=== PATIENT | male | born 1940 | race Caucasian/White ===

== ENCOUNTER 2019-10-10 19:01 | Inpatient (IN) ==
--- NOTE | 2019-10-10 19:46 | XRay Report ---
XR chest 1V portable CLINICAL HISTORY: weakness COMPARISON STUDY: Chest radiograph August 02, 2008. Chest radiograph August 04, 2008. FINDINGS: Lung volumes are normal. Lungs are clear. There is no pneumothorax or pleural effusion. Car diac size is normal. Mediastinal contours are normal. There is no evidence for pulmonary edema. Mild elevation of the right hemidiaphragm is noted. IMPRESSION: No acute cardiopulmonary findings. ACT 112: Negative or not required by law. Electronically signed by: Alexander Hunter M.D. 10/10/2019 7:45 PM
[2019-10-10 19:58] LABS: Basophils # (auto) 0.03 K/uL (0-0.2); Basophils % (auto) 0.4 %; Eosinophils # (auto) 0.12 K/uL (0-0.5); Eosinophils % (auto) 1.7 %; Hematocrit (blood only) 41.5 % (42-52); Hemoglobin 14.2 g/dL (14.0-18.0); Immature Granulocytes # (auto) 0.02 K/uL (0.00-0.02); Immature Granulocytes % (auto) 0.3 %; Lymphocytes # (auto) 0.78 K/uL (1.2-3.4); Mean Corpuscular Hemoglobin 31.2 pg (25-34); Mean Corpuscular Hgb Conc 34.2 g/dL (32-36); Mean Corpuscular Volume 91.2 fL (80-100); Mean Platelet Volume 9.3 fL (7.4-10.4); Monocytes # (auto) 0.49 K/uL (0.11-0.59); Monocytes % (auto) 6.9 %; Neutrophils # (auto) 5.63 K/uL (1.4-6.5); Neutrophils % (auto) 79.7 %; Platelet Count 189 K/uL (130-400); RDW Coefficient of Variation 14.3 % (11.5-14.5); RDW Standard Deviation 47.7 fL (36.4-46.3); Red Blood Count 4.55 M/uL (4.7-6.1); White Blood Count 7.07 K/uL (4.8-10.8)
[2019-10-10 20:17] LABS: Alanine Aminotransferase 16 U/L (12-78); Albumin Level 3.3 gm/dl (3.4-5.0); Aspartate Aminotransferase 13 U/L (15-37); BUN Creatinine Ratio 17.2 (10-20); Blood Urea Nitrogen 21 mg/dl (7-18); Calcium 8.9 mg/dl (8.5-10.1); Carbon Dioxide 29 mmol/L (21-32); Chloride 105 mmol/L (98-107); Creatinine Clr Calc Pharmacy 53.2 ml/min; Est GFR (African American) 64.7; Est GFR (Non-African American) 55.8; Glucose 186 mg/dl (70-99); Sodium 139 mmol/L (136-145)
[2019-10-10 20:27] LABS: Albumin Globulin Ratio 0.9 (0.9-2); Alkaline Phosphatase 96 U/L (45-117); Bilirubin,Total 0.5 mg/dl (0.2-1); Globulin 3.6 gm/dl (2.5-4.0); Total Protein 6.9 gm/dl (6.4-8.2); Troponin I < 0.015 ng/ml (0-0.045)
--- NOTE | 2019-10-10 20:29 | CT Scan Report ---
CT OF THE HEAD WITHOUT CONTRAST CLINICAL HISTORY: ?TIA, h/o CVA w/ R sided hemiparesis COMPARISON STUDY: Head CT July 29, 2008. MRI of the brain July 30, 2008. CT DOSE: 537.48 mGy.cm TECHNIQUE: Helical axial images of the head were obtained without IV contrast. Automated exposure con trol was utilized for the study. A dose lowering technique was utilized adhering to the principles o f ALARA. FINDINGS: No acute intracranial hemorrhage, midline shift or mass effect is present. The ventricular system is unremarkable. The basilar cisterns are patent. No extra-axial collections are present. Ther e are no findings to suggest acute dural sinus thrombosis or acute territorial infarct. No significan t calvarial abnormalities are present. Visualized portions of the sinuses and mastoid air cells are c lear. White matter hypodensity suggests small vessel disease. IMPRESSION: No acute intracranial findings. ACT 112: Negative or not required by law. Electronically signed by: Alexander Hunter M.D. 10/10/2019 8:27 PM
[2019-10-10] MEDS ORDERED: ASPIRIN CHEW 324 MG PO STA (21:09)
[2019-10-10 23:17] LABS: Appearance Urine Clear (Clear); Bilirubin Urine Negative (Negative); Blood Urine Negative (Negative); Color Urine Yellow; Glucose Urine UA Trace (Negative); Ketones Urine Negative (Negative); Leukocyte Esterase Urine Negative (Negative); Nitrite Urine Negative (Negative); Protein Urine Negative (Negative); Specific Gravity Urine 1.022 (1.000-1.030); Urobilinogen Urine Negative (Negative); pH Urine 5.5 (4.5-7.5)
--- NOTE | 2019-10-10 23:31 | Emergency Department Note ---
Entered by Paola Carlson acting as a scribe for Binh Chowdhury MD History of Present Illness General Chief complaint: Illness Stated complaint: ILLNESS, Time Seen by Provider: 10/10/19 19:05 Source: patient and family Limitations: no limitations History of Present Illness Provider complaint: Illness Onset (ago): hour(s) 1 Location: head, eyes and mouth Pain Consistency: + other (episode ) Quality: + constant Associated symptoms: + other (Positive: LOC, dizziness, rolled back eyes, drooling, shaking, unable to answer questions or speak. Negative: leg swelling); no chest pain, no headaches and no shortness of breath The patient is an 79 year old White male w/ PMHx of TIA who presents to the ED w/ CC of an episode of illness beginning an hour ago. The patient reports he just finished eating and felt a little stuffed, however, his family members insisted on bringing him to the ED. He notes he does not have history of seizure, however, he has history of stroke that left his whole right side weak. The patient states he had a blood clot in his legs and had an IVC filter placed. He denies chest pain, shortness of breath, headache, or leg swelling. The patients daughter report the patient told her he felt a little dizzy after eating dinner. She notes his eyes were then rolled back and the patient was drooling and shaking. The daughter states the patient was unable to speak or answer any questions She reports this episode lasted for 5 minutes then started becoming responsive. The daughter additionally states the patient kept lowering his right arm during the raise arm test performed by EMS. Home Medications Home Medications Medication Instructions Recorded Confirmed Type amlodipine 5 mg PO DAILY 10/10/19 10/10/19 History aspirin [Aspirin Low Dose] 81 mg PO DAILY 10/10/19 10/10/19 History lisinopril 20 mg PO DAILY 10/10/19 10/10/19 History simvastatin 20 mg PO HS 10/10/19 10/10/19 History Allergies Allergy/AdvReac Type Severity Reaction Status Date / Time No Known Allergies Allergy Unknown Verified 07/29/08 22:11 Past Med/Surg History Medical History (Updated 10/10/19 @ 22:06 by Paola Carlson) TIA (transient ischemic attack) (Acute) Family History (Updated 10/10/19 @ 20:00 by Paola Carlson) Other Family history non-contributory Social History Preferred Language: Armenian Feels Safe at Home: Yes Smoking Status: Former smoker Review of Systems See HPI for pertinent positives & negatives. and A total of 10 systems reviewed and were otherwise negative Physical Exam Vital Signs Vital Signs - 24 hr 10/10/19 19:00 10/10/19 19:41 10/10/19 20:20 Temperature 36.6 C Temperature Source Oral Pulse Rate 67 Pulse Rate [Bilateral] 67 Pulse Rhythm Regular Pulse Rhythm [Bilateral] Regular Pulse Strength Normal Pulse Strength [Bilateral] Normal Respiratory Rate 18 17 Respiratory Effort / Characteristics Non-Labored Spontaneous Non-Labored Spontaneous Respiratory Depth Normal Normal Respiratory Pattern Regular Regular Blood Pressure 163/82 H Blood Pressure [Left Arm] 168/84 H Blood Pressure Mean 109 Blood Pressure Mean [Left Arm] 112 Blood Pressure Position Lying Blood Pressure Position [Left Arm] Lying Pulse Oximetry 97 99 96 Oxygen Delivery Method Room Air Room Air Room Air Sepsis Recent Fever Within 48 Hours No Sepsis New/Unexplained Change in Mental Status No Sepsis Action Taken by Nursing No Action Required 10/10/19 21:00 10/10/19 23:01 Temperature Temperature Source Pulse Rate Pulse Rate [Bilateral] 85 70 Pulse Rhythm Pulse Rhythm [Bilateral] Regular Regular Pulse Strength Pulse Strength [Bilateral] Normal Normal Respiratory Rate 18 20 Respiratory Effort / Characteristics Non-Labored Spontaneous Non-Labored Spontaneous Respiratory Depth Normal Normal Respiratory Pattern Regular Blood Pressure Blood Pressure [Left Arm] 154/86 H 138/70 Blood Pressure Mean Blood Pressure Mean [Left Arm] 108 92 Blood Pressure Position Blood Pressure Position [Left Arm] Sitting Lying Pulse Oximetry 97 96 Oxygen Delivery Method Room Air Room Air Sepsis Recent Fever Within 48 Hours Sepsis New/Unexplained Change in Mental Status Sepsis Action Taken by Nursing GENERAL: Well appearing, well nourished, NAD, non-toxic. EYE EXAM: Normal conjunctiva. PERRL, no anisocoria and EOM's grossly intact w/o pain. OROPHARYNX: Moist mucous membranes. Grossly normal dentition. NECK: Supple, no nuchal rigidity, no adenopathy, non-tender. No signs of meningismus. LUNGS: Clear to auscultation. Normal chest wall mechanics. HEART: NSR, no MRG. ABDOMEN: Abdomen soft, non-tender, normo-active bowel sounds, no masses, no rebound or guarding. BACK: No CVA TTP. SKIN: No rashes and no bruising. UPPER EXTREMITIES: Upper extremities are grossly normal. LOWER EXTREMITIES: No pitting edema. No calf pain. NEURO EXAM: A&O x3, cranial nerves II-XII grossly intact, normal speech, 5/5 strength throughout, no sensory deficits, good finger to nose, no pronator drift, moves all 4 extremities on command w/o issue. Course Course 1912: The patient was evaluated in room B4B. A complete history and physical exam was performed. The patient was placed on a color television console monitor. 2109: Upon reevaluation, the patient is resting comfortably. I discussed laboratory and radiographic results with him. The patient verbalized agreement of the treatment plan. The patient will be evaluated for further management and care. 2145: I discussed the patient's case with [facility] The patient will be evaluated for further management. Administered Medications Discontinued Medications Aspirin (Aspirin) 324 mg PO NOW STA Stop: 10/10/19 21:10 Last Admin: 10/10/19 21:26 Dose: 324 mg Documented by: [id number] Medical Decision Making Differential Diagnosis Differential diagnosis: Etiologies such as infection, hypoglycemia, electrolyte abnormalities, cardiac sources, intracerebral event, trauma, toxicologic, neurologic, as well as others were entertained. Medical Records Attestation: I reviewed the patient's medical records. Home Medications Current Medication List: was personally reviewed by me Laboratory Data Attestation: I reviewed the patient's lab results. Result diagrams: 10/10/19 19:44 10/10/19 19:44 Lab Results 10/10/19 10/10/19 10/10/19 Range/Units 19:44 19:44 19:49 WBC 7.07 (4.8-10.8) K/uL RBC 4.55 L (4.7-6.1) M/uL Hgb 14.2 (14.0-18.0) g/dL Hct 41.5 L (42-52) % MCV 91.2 (80-100) fL MCH 31.2 (25-34) pg MCHC 34.2 (32-36) g/dL RDW Std Deviation 47.7 H (36.4-46.3) fL RDW Coeff of Renan 14.3 (11.5-14.5) % Plt Count 189 (130-400) K/uL MPV 9.3 (7.4-10.4) fL Immature Gran % (Auto) 0.3 % Neut % (Auto) 79.7 % Lymph % (Auto) 11.0 % Crook % (Auto) 6.9 % Eos % (Auto) 1.7 % Baso % (Auto) 0.4 % Immature Gran # (Auto) 0.02 (0.00-0.02) K/uL Neut # (Auto) 5.63 (1.4-6.5) K/uL Lymph # (Auto) 0.78 L (1.2-3.4) K/uL Crook # (Auto) 0.49 (0.11-0.59) K/uL Eos # (Auto) 0.12 (0-0.5) K/uL Baso # (Auto) 0.03 (0-0.2) K/uL Sodium 139 (136-145) mmol/L Potassium 4.0 (3.5-5.1) mmol/L Chloride 105 (98-107) mmol/L Carbon Dioxide 29 (21-32) mmol/L Anion Gap 5.0 (3-11) BUN 21 H (7-18) mg/dl Creatinine 1.21 (0.6-1.4) mg/dl Est Cr Clr Drug Dosing 53.2 ml/min Est GFR ( Amer) 64.7 Est GFR (Non-Af Amer) 55.8 BUN/Creatinine Ratio 17.2 (10-20) Glucose 186 H (70-99) mg/dl POC Glucose 179 H (70-99) Calcium 8.9 (8.5-10.1) mg/dl Total Bilirubin 0.5 (0.2-1) mg/dl AST 13 L (15-37) U/L ALT 16 (12-78) U/L Alkaline Phosphatase 96 (45-117) U/L Troponin I < 0.015 (0-0.045) ng/ml Total Protein 6.9 (6.4-8.2) gm/dl Albumin 3.3 L (3.4-5.0) gm/dl Globulin 3.6 (2.5-4.0) gm/dl Albumin/Globulin Ratio 0.9 (0.9-2) TSH 2.460 (0.300-4.500) uIu/ml Urine Color Urine Appearance (Clear) Urine pH (4.5-7.5) Ur Specific [place] (1.000-1.030) Urine Protein (Negative) Urine Glucose (UA) (Negative) Urine Ketones (Negative) Urine Blood (Negative) Urine Nitrite (Negative) Urine Bilirubin (Negative) Urine Urobilinogen (Negative) Ur Leukocyte Esterase (Negative) 10/10/19 Range/Units 23:00 WBC (4.8-10.8) K/uL RBC (4.7-6.1) M/uL Hgb (14.0-18.0) g/dL Hct (42-52) % MCV (80-100) fL MCH (25-34) pg MCHC (32-36) g/dL RDW Std Deviation (36.4-46.3) fL RDW Coeff of Renan (11.5-14.5) % Plt Count (130-400) K/uL MPV (7.4-10.4) fL Immature Gran % (Auto) % Neut % (Auto) % Lymph % (Auto) % Crook % (Auto) % Eos % (Auto) % Baso % (Auto) % Immature Gran # (Auto) (0.00-0.02) K/uL Neut # (Auto) (1.4-6.5) K/uL Lymph # (Auto) (1.2-3.4) K/uL Crook # (Auto) (0.11-0.59) K/uL Eos # (Auto) (0-0.5) K/uL Baso # (Auto) (0-0.2) K/uL Sodium (136-145) mmol/L Potassium (3.5-5.1) mmol/L Chloride (98-107) mmol/L Carbon Dioxide (21-32) mmol/L Anion Gap (3-11) BUN (7-18) mg/dl Creatinine (0.6-1.4) mg/dl Est Cr Clr Drug Dosing ml/min Est GFR ( Amer) Est GFR (Non-Af Amer) BUN/Creatinine Ratio (10-20) Glucose (70-99) mg/dl POC Glucose (70-99) Calcium (8.5-10.1) mg/dl Total Bilirubin (0.2-1) mg/dl AST (15-37) U/L ALT (12-78) U/L Alkaline Phosphatase (45-117) U/L Troponin I (0-0.045) ng/ml Total Protein (6.4-8.2) gm/dl Albumin (3.4-5.0) gm/dl Globulin (2.5-4.0) gm/dl Albumin/Globulin Ratio (0.9-2) TSH (0.300-4.500) uIu/ml Urine Color Yellow Urine Appearance Clear (Clear) Urine pH 5.5 (4.5-7.5) Ur Specific [place] 1.022 (1.000-1.030) Urine Protein Negative (Negative) Urine Glucose (UA) Trace H (Negative) Urine Ketones Negative (Negative) Urine Blood Negative (Negative) Urine Nitrite Negative (Negative) Urine Bilirubin Negative (Negative) Urine Urobilinogen Negative (Negative) Ur Leukocyte Esterase Negative (Negative) Imaging Data Radiologist's Impression: Radiology results as stated below per my review and the radiologist's interpretation: CT OF THE HEAD WITHOUT CONTRAST CLINICAL HISTORY: ?TIA, h/o CVA w/ R sided hemiparesis COMPARISON STUDY: Head CT July 29, 2008. MRI of the brain July 30, 2008. CT DOSE: 537.48 mGy.cm TECHNIQUE: Helical axial images of the head were obtained without IV contrast. Automated exposure control was utilized for the study. A dose lowering technique was utilized adhering to the principles of ALARA. FINDINGS: No acute intracranial hemorrhage, midline shift or mass effect is present. The ventricular system is unremarkable. The basilar cisterns are patent. No extra-axial collections are present. There are no findings to suggest acute dural sinus thrombosis or acute territorial infarct. No significant calvarial abnormalities are present. Visualized portions of the sinuses and mastoid air cells are clear. White matter hypodensity suggests small vessel disease. IMPRESSION: No acute intracranial findings. ACT 112: Negative or not required by law. Electronically signed by: Alexander Hunter M.D. 10/10/2019 8:27 PM XR chest 1V portable CLINICAL HISTORY: weakness COMPARISON STUDY: Chest radiograph August 02, 2008. Chest radiograph August 04, 2008. FINDINGS: Lung volumes are normal. Lungs are clear. There is no pneumothorax or pleural effusion. Cardiac size is normal. Mediastinal contours are normal. There is no evidence for pulmonary edema. Mild elevation of the right hemidiaphragm is noted. IMPRESSION: No acute cardiopulmonary findings. ACT 112: Negative or not required by law. Electronically signed by: Alexander Hunter M.D. 10/10/2019 7:45 PM ECG Data Attestation: I personally reviewed and interpreted this ECG as follows: Indication: + altered mental status Rate (beats per minute): 64 Rhythm: + normal sinus ECG Intervals/blocks: + Normal QRS, + Normal QT, + Normal UT and + Normal QT-c ECG Pep: + Left axis deviation ECG ST segments: no ST depression, no ST elevation and no T-wave inversions Blood Pressure Blood Pressure Findings: Elevated blood pressure Blood Pressure Disposition: further management by hospitalist MDM Narrative The patient is an 79 year old White male w/ PMHx of TIA who presents to the ED w/ CC of an episode of illness beginning an hour ago. Patient was seen and evaluated the bedside. The patient did present with conc [place] for some sort of change in mental status. The patient initially did present by himself and states that he feels well. Patient's family did arrive the did relate the patient did have a brief episode of alteration in consciousness but the patient was not as alert, his eyes rolled back, and he was drooling and unresponsive for 5 minutes at a time. There was concern for maybe some right- sided weakness. Patient is a prior history of CVA with right-sided weakness but if present is not very obvious on exam as the patient does have good strength in both his upper and lower extremities. Speech is thought to be normal by the family at bedside. Unsure whether not this is TIA versus seizure. Patient has no prior history of seizure no tongue biting and no incontinence. Patient did a bladder completed. Patient has a normal white count and hemoglobin. The patient's kidney function is unremarkable. Glucose is somewhat elevated but the patient had just eaten. Troponin is not testable. Urinalysis is negative. CT of the head is also negative along with a chest x-ray. Patient does have a slightly elevated ABCD 2 score places the patient at moderate risk. I did speak the on-call hospitalist who agreed to further evaluate treat the patient. Patient was admitted to the medicine service. Impression & Plan TIA (transient ischemic attack), Alteration consciousness, History of CVA (cerebrovascular accident) Discharge Plan Visit Data Chief Complaint: Illness Stated Complaint: ILLNESS, ED Provider: Binh Chowdhury Discharge Problem: TIA (transient ischemic attack), Alteration consciousness, History of CVA (cerebrovascular accident) Patient Disposition: Being Evaluated by Hospitalist Discharge Instructions Interventions: ED Discharge Assessment Last Done: 10/10/19 23:18 Forms Stand Alone Forms: My [facility] Prescriptions Prescriptions: No Action lisinopril 20 mg tablet 20 mg PO DAILY RF: 0 amlodipine 5 mg tablet 5 mg PO DAILY RF: 0 aspirin [Aspirin Low Dose] 81 mg Tablet,Delayed Release (Dr/Ec) 81 mg PO DAILY RF: 0 simvastatin 20 mg tablet 20 mg PO HS RF: 0 Referrals Referrals: PCP,NO [Primary Care Provider] - The scribe's documentation has been prepared under my direction and personally reviewed by me in its entirety. I confirm that the note above accurately reflects all work, treatment, procedures, and medical decision making performed by me.
[2019-10-10] MEDS ORDERED: ONDANSETRON INJ 2 MG/ML 2 ML VIAL IV PRN (23:56)
[2019-10-10] MEDS ORDERED: PHARMACIST DISCHARGE MED REC CONSULT PRN (23:56)
[2019-10-10] MEDS ORDERED: CLOPIDOGREL BISULFATE 75 MG TAB PO ONE (23:56)
[2019-10-10] MEDS ORDERED: NITROGLYCERIN SL 0.4 MG/TAB TAB SL PRN (23:56)
[2019-10-10] MEDS ORDERED: ACETAMINOPHEN 325 MG TAB PO PRN (23:56)
[2019-10-10] MEDS ORDERED: POLYETHYLENE (MIRALAX) 17 GM PACK PO PRN (23:56)
[2019-10-11] MEDS: SODIUM CHLORIDE 0.9% 1000ML 1,000 ML IV SCH ×2 (00:16→15:37)
--- NOTE | 2019-10-11 02:38 | History and Physical Report ---
DATE OF ADMISSION: 10/10/2019 CHIEF COMPLAINT: Stroke-like symptoms. 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 The patient's daughter visiting him for [place], he was sitting in the chair and suddenly he seemed to be leaning to one side, daughter went and checked him and he was feeling somewhat lightheaded. He could see, but he could not speak and his eyes started rolling up, it lasted about 10-15 minutes and the EMS was called. He was drooling during that time. When EMS came at that time he started to come around and he was able to have difficulty to tell his name, then gradually came back to his usual self. Currently at his baseline. Speech is normal. Alert and oriented. Could tell all his history, said he could see everything, but he could not speak at that time. Currently resting comfortably and hemodynamically stable. He has some mild headache, no blurred vision, no earache, currently no runny nose, no sore throat, no cough, no chest pain, no fever or chills. Appetite is okay. Swallows okay. No significant recent weight gain or weight loss. Sleeps okay. Ambulates okay. He says on couple of hours ambulating sometimes his right foot drops, so he is on brace for that. No chest pain, no shortness of breath, no nausea, no vomiting, no abdominal pain. Normal bowel and bladder movements. No hematuria or burning micturition, no black stools or bloody stools. No swelling in the legs, no rash. ALLERGIES: No known drug allergies. PAST MEDICAL HISTORY: As mentioned above. PAST SURGICAL HISTORY: Status post IVC filter. MEDICATIONS: The patient is on aspirin 81 mg p.o. daily, lisinopril 20 mg p.o. daily, simvastatin 20 mg p.o. at bedtime, amlodipine 5 mg p.o. daily. FAMILY HISTORY: No family history on file. SOCIAL HISTORY: , lives alone. No smoking, no alcohol, no drug use. REVIEW OF SYMPTOMS: As per HPI. Rest of review of symptoms negative. PHYSICAL EXAMINATION: GENERAL: The patient alert and oriented, not in acute distress. VITAL SIGNS: Temperature 36.6, pulse 85, respiratory rate 18, blood pressure 154/86, oxygen 97% room air. HEENT: No pallor, no icterus. Pupils equal, round, reactive to light. NECK: No JVD, no neck masses, no carotid bruits. CARDIOVASCULAR: S1, S2 heard, regular rate and rhythm, no murmur, no gallop. RESPIRATORY SYSTEM: Normal AP diameter. No accessory muscle use. No wheezing, no crackles. ABDOMEN: Soft, bowel sounds present, nontender. No distention. CENTRAL NERVOUS SYSTEM: Alert and oriented. Cranial nerves II-XII grossly intact. Power 5/5 in all extremities. Sensation is intact, position sense intact. Coordination movements normal. No pronator drift. [id number] test normal. EXTREMITIES: No edema, no erythema. LABORATORY DATA: WBC 7, hemoglobin 14.2, hematocrit 41.5, platelets 189. Sodium 139, potassium 4, chloride 105, bicarbonate 29, BUN 21, creatinine 1.2, serum glucose 186, calcium 8.9, total bilirubin 0.5, AST 13, ALT 16, alkaline phosphatase 96, troponin I less than 0.015. TSH 2.4. CT of the head, no acute intracranial findings. Chest x-ray, no acute cardiopulmonary findings. EKG: Normal sinus rhythm at a rate of 64. Nonspecific ST changes. ASSESSMENT AND PLAN: This is an 79-year-old male who presents with stroke-like symptoms. 1. Stroke like symptoms: The patient felt dizzy and leaned to one side and could not speak for about 10-15 minutes, then came back to usual self. History of cerebrovascular accident in the past in 2007. At that time, he had a right-sided weakness which improved. Currently possible transient ischemic attack, will do stroke workup with MRI scan, echocardiogram and carotid Doppler, speech evaluation. Follow his lipid profile and HbA1c levels. PT and OT. Neurology consult in a.m. Monitor in tele floor. 2. Questionable seizures: Will do EEG. Continue his home aspirin. We will also add Plavix and await neuro input. 3. Hyperlipidemia: Continue statin. Follow up fasting lipid profile. 4. Hypertension: On amlodipine and lisinopril.We will hold his amlodipine to allow permissive hypertension, if MRI shows cva. 5. History of pulmonary embolism and deep venous thrombosis: Status post IVC filter, not on anticoagulation. 6. Deep venous thrombosis prophylaxis: Sequential compression devices for now. 7. Disposition: Admit to tele floor. Expect to discharge home and follow with family doctor. Level 1 full code. PT and OT prior to discharge. Social Service to help with discharge planning. DONOVAN
[2019-10-11] MEDS ORDERED: GADOBUTROL 65ML VIAL IV PRN (03:14)
--- NOTE | 2019-10-11 06:43 | Magnetic Resonance Report ---
MRI OF THE BRAIN WITHOUT AND WITH IV CONTRAST CLINICAL HISTORY: stroke like symptoms COMPARISON STUDY: Noncontrast head CT dated 10/10/2019, MRI the brain dated 07/30/2008 TECHNIQUE: MRI of the brain was performed from the vertex to the skull base utilizing various T1 and T2 weighted sequences. Following the IV administration of 7.7 mL of Gadavist contrast, additional enh anced images were obtained. FINDINGS: Sagittal T1, axial diffusion, proton density and T2 weighted axial, coronal FLAIR, and pre and post a xial T1-weighted images were acquired. These were supplemented with post gadolinium coronal T1 weight ed images. No intra or extra-axial mass lesions are visualized. Axial diffusion-weighted images reveal no evidence of acute or subacute infarction. There is no evidence of ventricular dilatation. Proton density T2-weighted and FLAIR images reveal moderate scattered foci of increased T2 signal wit hin the white matter, likely on a small vessel basis. There is an old infarct at the level of the ronal tomedullary junction. There are no abnormal flow voids. There is no evidence of pathologic enhancement. IMPRESSION: Old post ischemic changes. No acute findings. No evidence of intracranial mass. No evide nce of acute or subacute infarction. ACT 112: Negative or not required by law. Electronically signed by: Caleb Maria M.D. 10/11/2019 6:41 AM
[2019-10-11 06:50] LABS: Basophils # (auto) 0.03 K/uL (0-0.2); Basophils % (auto) 0.5 %; Eosinophils # (auto) 0.13 K/uL (0-0.5); Eosinophils % (auto) 2.1 %; Hematocrit (blood only) 38.3 % (42-52); Hemoglobin 13.1 g/dL (14.0-18.0); Immature Granulocytes # (auto) 0.01 K/uL (0.00-0.02); Immature Granulocytes % (auto) 0.2 %; Lymphocytes # (auto) 1.12 K/uL (1.2-3.4); Lymphocytes % (auto) 17.7 %; Mean Corpuscular Hgb Conc 34.2 g/dL (32-36); Mean Corpuscular Volume 90.8 fL (80-100); Mean Platelet Volume 9.6 fL (7.4-10.4); Monocytes # (auto) 0.58 K/uL (0.11-0.59); Monocytes % (auto) 9.1 %; Neutrophils # (auto) 4.47 K/uL (1.4-6.5); Neutrophils % (auto) 70.4 %; Platelet Count 201 K/uL (130-400); RDW Coefficient of Variation 14.2 % (11.5-14.5); RDW Standard Deviation 46.6 fL (36.4-46.3); Red Blood Count 4.22 M/uL (4.7-6.1); White Blood Count 6.34 K/uL (4.8-10.8)
[2019-10-11 07:11] LABS: Calcium 8.9 mg/dl (8.5-10.1); Creatinine Clr Calc Pharmacy 58.9 ml/min; Est GFR (African American) 74.2; Magnesium 2.1 mg/dl (1.8-2.4); Potassium 3.9 mmol/L (3.5-5.1)
[2019-10-11 07:17] LABS: Estimated Average Glucose 108 mg/dl; Hemoglobin A1C 5.4 % (4.5-5.6)
--- NOTE | 2019-10-11 07:22 | Ultrasound Report ---
US carotid doppler BI CLINICAL HISTORY: 79 years-old Male presenting with tia/cva. TECHNIQUE: Real-time grayscale and color and spectral Doppler ultrasound imaging of the bilateral car otid arteries was performed. Stenosis measurements were based on NASCET-like criteria (distal lumen d iameter as the denominator for stenosis measurement). COMPARISON: 07/30/2008. FINDINGS: RIGHT: Common carotid artery (CCA): Atherosclerosis at the carotid bulb. Peak systolic velocity (PSV) 91 cm/ s. Internal carotid artery (ICA): Atherosclerosis of the proximal ICA. PSV 71 cm/s. End diastolic veloci ty (EDV) 14 cm/s. ICA/CCA (systolic) ratio: 0.7. External carotid artery (ECA): Patent. PSV 102 cm/s. LEFT: CCA: Atherosclerosis at the carotid bulb. PSV 131 cm/s. ICA: Atherosclerosis of the proximal ICA. PSV 84 cm/s. EDV 16 cm/s. ICA/CCA (systolic) ratio: 0.6. ECA: Patent. PSV 87 cm/s. Bilateral antegrade flow within the vertebral arteries. Other: Incidental note made of a right thyroid lobe nodule measuring 2.0 x 1.3 x 1.3 cm, previously 2 .2 cm in 2007. There is also a prominent lymph node in the right cervical region measuring 1.1 x 0.3 x 0.5 cm. This has a benign morphology. Blood pressure: Brachial: Right: 145/79 mmHg, Left: 160/86 mmHg. Reference ranges: Stenosis measurements are compared to reference velocity parameters by the Society of Radiologists in Ultrasound (SRU) consensus and Sonographic NASCET index (S-NASCET). * SRU Primary parameters: ICA PSV <125 cm/s = normal or less than 50% stenosis; ICA PSV 125-230 cm/s = 50-69% stenosis; ICA PSV >230 cm/s = greater than or equal to 70% stenosis. * SRU Additional parameters: ICA/CCA PSV ratio <2 = normal or less than 50% stenosis; ratio 2-4 = 5 0-69% stenosis; ratio >4 = greater than or equal to 70% stenosis. ICA EDV <40 cm/s = normal or less t booker 50% stenosis; ICA EDV 40-100 cm/s = 50-69% stenosis; ICA EDV >100 cm/s = greater than or equal to 70% stenosis. * S-NASCET parameters: Deceleration spectral broadening + PSV <125 cm/s = less than 50% stenosis; pa nsystolic spectral broadening + PSV <125 cm/s = 16-49% stenosis; pansystolic spectral broadening + PS V >125 cm/s + EDV <110 cm/s or ICA/CCA PSV ratio 2-4 = 50-69% stenosis; pansystolic spectral broadeni ng + PSV >270 cm/s OR EDV >110 cm/s OR ICA/CCA PSV ratio >4 = 70-79% stenosis; EDV >140 cm/s = 80-99% stenosis. IMPRESSION: 1. Atherosclerosis without hemodynamically significant stenosis in the carotid arteries. 2. Essentially stable right thyroid lobe nodule. 3. Benign right cervical lymph node. ACT 112: Negative or not required by law. Electronically signed by: Kaleb Naqvi M.D. 10/11/2019 7:21 AM
--- NOTE | 2019-10-11 09:38 | Electroencephalogram ---
EEG Procedure Note Date of Service October 11, 2019 Start / End Times Start Time: 0839 End Time: [address] Figueredo History Confusional episode of uncertain cause question seizure Home Medication List Home Medications Medication Instructions Recorded Confirmed Type amlodipine 5 mg PO DAILY 10/10/19 10/10/19 History aspirin [Aspirin Low Dose] 81 mg PO DAILY 10/10/19 10/10/19 History lisinopril 20 mg PO DAILY 10/10/19 10/10/19 History simvastatin 20 mg PO HS 10/10/19 10/10/19 History Inpatient Medication List Gadobutrol (Gadavist 65ml) 7.7 ml IV ONCE PRN PRN Reason: Interaction Checking Stop: 10/15/19 03:13 Last Admin: 10/11/19 03:00 Dose: 7.7 ml Documented by: [id number] Sodium Chloride (Nss 1000ml) 1,000 mls @ 75 mls/hr IV .[id number] ELVIRA Stop: 10/11/19 16:00 Last Admin: 10/11/19 00:16 Dose: 75 mls/hr Documented by: [id number] Discontinued Medications Aspirin (Aspirin) 324 mg PO NOW STA Stop: 10/10/19 21:10 Last Admin: 10/10/19 21:26 Dose: 324 mg Documented by: [id number] Clopidogrel Bisulfate (Plavix) 75 mg PO NOW ONE Stop: 10/10/19 23:57 Last Admin: 10/11/19 00:43 Dose: 75 mg Documented by: [id number] Description This is a 21 electrode EEG with a single channel dedicated to limited EKG. The electrodes were placed in accordance with the International 10-20 system. This EEG was done as a bedside recording is of good technical quality with few muscle movement artifacts. Unfortunately the video portion recording was dysfunctional and correlation of the movement artifact with video documentation was not possible but overall the nature of the discharges was more reminiscent of muscle artifact than anything of cortical origin Under these conditions there is evidence for normal background rhythm in the alpha range of about 9 to 10 Hz and maximum frequency of up to 20 V maximum amplitude. This is maximum posterior head regions bilaterally symmetrical. Polymorphic relatively low voltage mid frequency theta activity is seen in a symmetrical fashion over the central regions. Beta activity seen bifrontally No time during the waking tracing is evidence for potentially epileptogenic activity in the form of polyspike or spike-wave burst, focal sharp waves and focal spikes Interpretation This is an essentially normal EEG during wakefulness without evidence for focal or generalized encephalopathy and without evidence for potentially epileptogenic activity Clinical Correlation Is a normal EEG without evidence for potentially epileptogenic activity or focal abnormalities but a normal study does not exclude a diagnosis of seizure disorder and clinical correlation is required Harjinder Rincon MD
[2019-10-11] MEDS: AMLODIPINE BESYLATE 5 MG TAB PO SCH (09:56)
[2019-10-11] MEDS: CLOPIDOGREL BISULFATE 75 MG TAB PO SCH (09:56)
[2019-10-11] MEDS: lisinopriL 20 MG TAB PO SCH (09:56)
[2019-10-11] MEDS: ASPIRIN 81 MG ECTAB PO SCH (09:56)
--- NOTE | 2019-10-11 12:29 | Hospitalist Progress Note ---
Date of Service October 11, 2019 Assessment & Plan (1) Alteration consciousness: Strokelike symptoms reported. CT head did not show any acute abnormality,MRI unremarkable for any acute findings [showed old postischemic changes], carotid duplex showed atherosclerosis without hemodynamically significant stenosis, EEG negative for any seizure activity. Has history of prior CVA, hypertension. Possibilities include TIA, neurocardiogenic presyncope Will await neurology evaluation Already evaluated by physical therapy and speech therapist without any abnormality Refer to H&P from this morning for further details and plan Subjective Patient seen and examined this morning. Reports that all symptoms reported and admission has completely resolved. Reported being fully aware during the episode. Denied any loss of consciousness. Did report sluggish speech, confusion at the time. Currently patient, he stated this was related to being too excited during julien and getting lightheaded. At the time of my evaluation, patient denied any focal weakness, difficulty swallowing, blurred vision, headache, sensory abnormalities. Review of Systems Review of Systems: All systems reviewed and unremarkable except for mentioned above. Physical Exam Physical Exam: General: Well nourished, well hydrated, no acute distress Eyes: PERRL, conjunctivae normal, not pale, anicteric sclerae, EOM intact bilaterally ENMT: External ear and nose normal, oropharynx normal Neck: Normal visual inspection, no tracheal deviation, no swelling noted Respiratory: Normal respiratory effort, no respiratory distress, lungs clear to auscultation, no crackles and no wheezes Cardiovascular: Pulse is RRR. S1 S2. No murmur Chest (Breasts): Chest: normal inspection of chest Gastrointestinal (Abdomen): Abdomen is not distended, soft, non-tender to palpation, no guarding, no palpable hepatosplenomegaly, normal bowel sounds Musculoskeletal: No cyanosis or clubbing, all extremities motor strength 5/5 Skin: No rash noted on gross inspection, No ulcers noted Neurologic: Alert and oriented x 3, No focal weakness, sensation grossly intact, CN II,III, IV, , V, VII, IX, X, XII grossly intact Psychiatric: Euthymic affect, no depressed affect Results & Data Vital Signs (Past 12 Hours) Vital Signs Temp Pulse Pulse Resp BP BP Pulse Ox 10/11/19 11:42 36.6 C 87 18 119/65 95 10/11/19 07:54 36.7 C 80 18 172/63 H 97 10/11/19 03:53 36.4 C L 64 18 144/83 H 98 Laboratory Results Laboratory Results - last 24 hr 10/10/19 10/10/19 10/10/19 19:44 19:44 19:49 WBC 7.07 RBC 4.55 L Hgb 14.2 Hct 41.5 L MCV 91.2 MCH 31.2 MCHC 34.2 RDW Std Deviation 47.7 H RDW Coeff of Renan 14.3 Plt Count 189 MPV 9.3 Immature Gran % (Auto) 0.3 Neut % (Auto) 79.7 Lymph % (Auto) 11.0 [place] % (Auto) 6.9 Eos % (Auto) 1.7 Baso % (Auto) 0.4 Immature Gran # (Auto) 0.02 Neut # (Auto) 5.63 Lymph # (Auto) 0.78 L [place] # (Auto) 0.49 Eos # (Auto) 0.12 Baso # (Auto) 0.03 Sodium 139 Potassium 4.0 Chloride 105 Carbon Dioxide 29 Anion Gap 5.0 BUN 21 H Creatinine 1.21 Est Cr Clr Drug Dosing 53.2 Est GFR ( Amer) 64.7 Est GFR (Non-Af Amer) 55.8 BUN/Creatinine Ratio 17.2 Glucose 186 H POC Glucose 179 H Estimat Average Glucose Hemoglobin A1c Calcium 8.9 Magnesium Total Bilirubin 0.5 AST 13 L ALT 16 Alkaline Phosphatase 96 Troponin I < 0.015 Total Protein 6.9 Albumin 3.3 L Globulin 3.6 Albumin/Globulin Ratio 0.9 Triglycerides Cholesterol LDL Cholesterol, Calc VLDL Cholesterol, Calc HDL Cholesterol Cholesterol/HDL Ratio TSH 2.460 Urine Color Urine Appearance Urine pH Ur Specific [place] Urine Protein Urine Glucose (UA) Urine Ketones Urine Blood Urine Nitrite Urine Bilirubin Urine Urobilinogen Ur Leukocyte Esterase 10/10/19 10/11/19 10/11/19 23:00 06:18 06:18 WBC 6.34 RBC 4.22 L Hgb 13.1 L Hct 38.3 L MCV 90.8 MCH 31.0 MCHC 34.2 RDW Std Deviation 46.6 H RDW Coeff of Renan 14.2 Plt Count 201 MPV 9.6 Immature Gran % (Auto) 0.2 Neut % (Auto) 70.4 Lymph % (Auto) 17.7 [place] % (Auto) 9.1 Eos % (Auto) 2.1 Baso % (Auto) 0.5 Immature Gran # (Auto) 0.01 Neut # (Auto) 4.47 Lymph # (Auto) 1.12 L [place] # (Auto) 0.58 Eos # (Auto) 0.13 Baso # (Auto) 0.03 Sodium 141 Potassium 3.9 Chloride 108 H Carbon Dioxide 28 Anion Gap 5.0 BUN 21 H Creatinine 1.08 Est Cr Clr Drug Dosing 58.9 Est GFR ( Amer) 74.2 Est GFR (Non-Af Amer) 64.0 BUN/Creatinine Ratio 19.0 Glucose 89 POC Glucose Estimat Average Glucose Hemoglobin A1c Calcium 8.9 Magnesium 2.1 Total Bilirubin AST ALT Alkaline Phosphatase Troponin I Total Protein Albumin Globulin Albumin/Globulin Ratio Triglycerides 69 Cholesterol 157 LDL Cholesterol, Calc 67 VLDL Cholesterol, Calc 14 HDL Cholesterol 76 Cholesterol/HDL Ratio 2 TSH Urine Color Yellow Urine Appearance Clear Urine pH 5.5 Ur Specific [place] 1.022 Urine Protein Negative Urine Glucose (UA) Trace H Urine Ketones Negative Urine Blood Negative Urine Nitrite Negative Urine Bilirubin Negative Urine Urobilinogen Negative Ur Leukocyte Esterase Negative 10/11/19 06:18 WBC RBC Hgb Hct MCV MCH MCHC RDW Std Deviation RDW Coeff of Renan Plt Count MPV Immature Gran % (Auto) Neut % (Auto) Lymph % (Auto) [place] % (Auto) Eos % (Auto) Baso % (Auto) Immature Gran # (Auto) Neut # (Auto) Lymph # (Auto) [place] # (Auto) Eos # (Auto) Baso # (Auto) Sodium Potassium Chloride Carbon Dioxide Anion Gap BUN Creatinine Est Cr Clr Drug Dosing Est GFR ( Amer) Est GFR (Non-Af Amer) BUN/Creatinine Ratio Glucose POC Glucose Estimat Average Glucose 108 Hemoglobin A1c 5.4 Calcium Magnesium Total Bilirubin AST ALT Alkaline Phosphatase Troponin I Total Protein Albumin Globulin Albumin/Globulin Ratio Triglycerides Cholesterol LDL Cholesterol, Calc VLDL Cholesterol, Calc HDL Cholesterol Cholesterol/HDL Ratio TSH Urine Color Urine Appearance Urine pH Ur Specific [place] Urine Protein Urine Glucose (UA) Urine Ketones Urine Blood Urine Nitrite Urine Bilirubin Urine Urobilinogen Ur Leukocyte Esterase
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
[2019-10-11] MEDS ORDERED: SIMVASTATIN 20 MG TAB PO SCH (21:00)
[2019-10-12 05:22] LABS: Basophils # (auto) 0.03 K/uL (0-0.2); Basophils % (auto) 0.5 %; Eosinophils # (auto) 0.21 K/uL (0-0.5); Eosinophils % (auto) 3.5 %; Hematocrit (blood only) 36.3 % (42-52); Hemoglobin 12.3 g/dL (14.0-18.0); Immature Granulocytes # (auto) 0.01 K/uL (0.00-0.02); Immature Granulocytes % (auto) 0.2 %; Lymphocytes # (auto) 1.42 K/uL (1.2-3.4); Lymphocytes % (auto) 23.9 %; Mean Corpuscular Hemoglobin 30.9 pg (25-34); Mean Corpuscular Hgb Conc 33.9 g/dL (32-36); Mean Corpuscular Volume 91.2 fL (80-100); Mean Platelet Volume 9.2 fL (7.4-10.4); Monocytes # (auto) 0.66 K/uL (0.11-0.59); Monocytes % (auto) 11.1 %; Neutrophils % (auto) 60.8 %; Platelet Count 186 K/uL (130-400); RDW Coefficient of Variation 14.3 % (11.5-14.5); Red Blood Count 3.98 M/uL (4.7-6.1); White Blood Count 5.93 K/uL (4.8-10.8)
[2019-10-12 05:58] LABS: BUN Creatinine Ratio 16.4 (10-20); Calcium 8.2 mg/dl (8.5-10.1); Creatinine Clr Calc Pharmacy 53.9 ml/min; Est GFR (African American) 66.7; Est GFR (Non-African American) 57.5; Potassium 4.2 mmol/L (3.5-5.1)
[2019-10-12] MEDS: AMLODIPINE BESYLATE 5 MG TAB PO SCH (07:52)
[2019-10-12] MEDS: ASPIRIN 81 MG ECTAB PO SCH (07:52)
[2019-10-12] MEDS: CLOPIDOGREL BISULFATE 75 MG TAB PO SCH (07:53)
[2019-10-12] MEDS: lisinopriL 20 MG TAB PO SCH (07:53)
[2019-10-12] MEDS ORDERED: STROKE PATIENT DISCHARGE STA (13:26)
--- NOTE | 2019-10-12 13:27 | Discharge Summary ---
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 The patient's daughter visiting him for Nursery, he was sitting in the chair and suddenly he seemed to be leaning to one side, daughter went and checked him and he was feeling somewhat lightheaded. He could see, but he could not speak and his eyes started rolling up, it lasted about 10-15 minutes and the EMS was called. He was drooling during that time. When EMS came at that time he started to come around and he was able to have difficulty to tell his name, then gradually came back to his usual self. Currently at his baseline. Speech is normal. Alert and oriented. Could tell all his history, said he could see everything, but he could not speak at that time. Currently resting comfortably and hemodynamically stable. He has some mild headache, no blurred vision, no earache, currently no runny nose, no sore throat, no cough, no chest pain, no fever or chills. Appetite is okay. Swallows okay. No significant recent weight gain or weight loss. Sleeps okay. Ambulates okay. He says on couple of hours ambulating sometimes his right foot drops, so he is on brace for that. No chest pain, no shortness of breath, no nausea, no vomiting, no abdominal pain. Normal bowel and bladder movements. No hematuria or burning micturition, no black stools or bloody stools. No swelling in the legs, no rash. Admission Exam Per Admitting Provider GENERAL: The patient alert and oriented, not in acute distress. VITAL SIGNS: Temperature 36.6, pulse 85, respiratory rate 18, blood pressure 154/86, oxygen 97% room air. HEENT: No pallor, no icterus. Pupils equal, round, reactive to light. NECK: No JVD, no neck masses, no carotid bruits. CARDIOVASCULAR: S1, S2 heard, regular rate and rhythm, no murmur, no gallop. RESPIRATORY SYSTEM: Normal AP diameter. No accessory muscle use. No wheezing, no crackles. ABDOMEN: Soft, bowel sounds present, nontender. No distention. CENTRAL NERVOUS SYSTEM: Alert and oriented. Cranial nerves II-XII grossly intact. Power 5/5 in all extremities. Sensation is intact, position sense intact. Coordination movements normal. No pronator drift. Ezpe-vx-vlit test normal. EXTREMITIES: No edema, no erythema. Principal Diagnosis Transient ischemic attack Discharge Exam General: Well nourished, no acute distress Eyes: PERRL, conjunctivae normal, not pale, anicteric sclerae, EOM intact bilaterally ENMT: External ear and nose normal, oropharynx normal Neck: Normal visual inspection, no tracheal deviation, no swelling noted Respiratory: Normal respiratory effort, no respiratory distress, lungs clear to auscultation, no crackles and no wheezes Cardiovascular: Pulse is RRR. S1 S2. no leg edema Gastrointestinal (Abdomen): Abdomen is not distended, soft, non-tender to palpation, no guarding, no palpable hepatosplenomegaly, normal bowel sounds Musculoskeletal: No cyanosis or clubbing, all extremities motor strength 5/5 Neurologic: Alert and oriented x 3, No focal weakness, sensation grossly intact, power is 5/5 in all extremities. Discharge Data Allergies Allergy/AdvReac Type Severity Reaction Status Date / Time No Known Allergies Allergy Unknown Verified 07/29/08 22:11 Consultations 10/10/19 21:19 ED Decision to Admit Stat 10/10/19 23:56 Consult Case Management - Discharge Planning Routine Consult Case Management - Discharge Planning Routine 10/11/19 08:00 Consult Neurology Routine Ordered Studies 10/10/19 19:31 CT head/brain wo con Stat No acute intracranial findings. 10/10/19 23:56 US carotid doppler BI Routine 1. Atherosclerosis without hemodynamically significant stenosis in the carotid arteries. 2. Essentially stable right thyroid lobe nodule. 3. Benign right cervical lymph node. 10/11/19 00:17 MR brain wo/w con Urgent Old post ischemic changes. No acute findings. No evidence of intracranial mass. No evidence of acute or subacute infarction. Hospital Course (1) TIA (transient ischemic attack): (2) Alteration consciousness: CT head did not show any acute abnormality,MRI unremarkable for any acute findings [showed old postischemic changes], carotid duplex showed atherosclerosis without hemodynamically significant stenosis, EEG negative for any seizure activity. Echo was unremarkable Has history of prior CVA, hypertension. Evaluated by neurology Evaluated by physical therapy and speech therapist without any abnormality Hemoglobin A1c was 5.4 Started on Plavix and aspirin. Family reported concern for driving, citing numerous incidents. After discussion with patient, patient was advised not to drive until further evaluation and clearance by the neurologist. We will continue aspirin and Plavix for 3 weeks after which patient continues on Plavix lifelong. Patient is to follow-up with neurology office on November 13, 2019 and PCP on 18 October 2019 Continue simvastatin (3) Hypertension: Continue lisinopril and amlodipine home medication Follow-up with PCP Total Time Total Time Spent Total Time Spent (In Minutes): 35 Total Time Includes: Examination of the Patient, Discharge Planning and Medication Reconciliation Discharge Plan Discharge Items Patient Disposition: Home - Self-Care Reason For Visit: STROKE LIKE SYMPTOMS Discharge Diagnosis: Transient Ischemic Attack Condition on Discharge: Good Activity: Resume your previous activity Driving/Machine Use: DO NOT DRIVE Non-emergency contact: Primary Care Provider and Neurologist Call non-emergency contact if: you have any medication questions and your symptoms worsen Follow-up/Referrals: Billy Musa MD [Outside Practitioners] - 10/18/19 10:05 am (Neurology appointment with Carrol Pantoja 11/13/2019 @ 11:05 am [facility] Carrol Monroy MD [Physician] - 11/13/19 11:05 am PCP,AILYN [Primary Care Provider] - Diet: Heart Healthy Addtl Attending Provider Instructions: Mr. Coles. You came to the hospital due to change in your mental status, weakness and slurred speech. You were extensively evaluated with CAT scan, MRI brain, echo and carotid Dopplers. You were managed for transient ischemic attacks. You are started on aspirin and Plavix. Please continue aspirin 81 mg daily and Plavix 75 mg daily for 3 weeks, after which you stop taking the aspirin but continue taking the Plavix. You should not drive until further evaluation and clearance by the neurologist. Please follow-up with the neurologist on the appointment date as well as your primary care physician It was a pleasure taking care of you. Pending Studies at Discharge: No Stand-Alone Forms: Medications to Prevent Stroke, My Snatch that Jerky, Smoking Cessation Medications and DC Order Prescriptions: New clopidogrel 75 mg Tablet 75 mg PO QAM 30 Days Qty: 30 RF: 1 aspirin [Aspirin Low Dose] 81 mg Tablet,Delayed Release (Dr/Ec) 81 mg PO DAILY 21 Days Qty: 21 RF: 0 Continued lisinopril 20 mg tablet 20 mg PO DAILY RF: 0 amlodipine 5 mg tablet 5 mg PO DAILY RF: 0 simvastatin 20 mg tablet 20 mg PO HS RF: 0 Discharge Orders: Discharge Order (Routine); Ordered 10/12/19 Ordered By: Sofia Ruano Admission Data Admit Date/Time: 10/10/19 22:35 Attending Provider: Sofia Ruano I. Admit Provider: Connor Figueredo Primary Care Provider: PCP,NO Other Providers: Connor Figueredo ; Carrol Monroy Other Interventions: Discharge Summary Assessment (RN) Last Done: 10/12/19 13:32 DC Date/Time DO NOT enter until pt leaves facility: 10/12/19 14:41
--- NOTE | 2019-10-12 14:17 | Pharmacy Report ---
Pharmacist Stroke Counseling - Date of Service October 12, 2019 - Scope: Pharmacy has been consulted to provide medication discharge counseling for this patient admitted with transient ischemic attack as per the Pharmacist Discharge Counseling for Stroke Patients Protocol. - Medications on Discharge: Home Medications Medication Instructions Recorded Confirmed amlodipine 5 mg PO DAILY 10/10/19 10/10/19 lisinopril 20 mg PO DAILY 10/10/19 10/10/19 simvastatin 20 mg PO HS 10/10/19 10/10/19 New Rx's Medication Instructions Recorded aspirin [Aspirin Low Dose] 81 mg PO DAILY 21 Days #21 tab NS 10/12/19 clopidogrel 75 mg PO QAM 30 Days #30 tab 10/12/19 - Action: The above medications, specifically ones for stroke treatment/prophylaxis, have been reviewed in detail with the patient and/or patient independent sales representative(s) prior to discharge. This includes indication, common adverse reactions, drug interactions, and medication administration. Medication counseling has been employed using the teach-back method to ensure understanding. - Outcome: The patient and/or patient independent sales representative(s) have demonstrated understanding of the medications. Please note, they are aware that the pharmacist will call them within 72 hours post-discharge to confirm that the appropriate medications are being taken and answer any further medication related questions the patient might have at that time. Contact information Individual to be contacted: patient Relationship to patient (if applicable): Phone number: [phone] Best time to call: anytime Additional comments: * Patient declined pillbox since he uses one at home * Daughter will warp picker Rx's since he is not cleared to drive but he will manage his medications * Patient was taking ASA 325 mg (which is not listed on med list) but is aware to decrease to 81 mg now along with Plavix * Has been on Zocor. Current dose is moderate intensity but LDL already < 70 and patient with advanced age so in agreement with not advancing to high intensity. Thank you for allowing pharmacy to be involved in the care of this patient. Please call [phone] or [phone] with any additional questions
--- NOTE | 2019-10-15 11:25 | Pharmacy Report ---
Pharmacist Post D/C Phone Note - Phone Note: Date of phone call: October 15, 2019. Individual with whom pharmacist spoke to: RAFAEL SANDY The following questions were reviewed during the phone call with responses listed below each: Can you tell me the medications that you are currently taking as well as when and how you take each medication? -See Table Below When have you missed any doses of your medications? - NO What side effects are you having from your medications, specifically, the new medications you were started on? - NO What questions do you have about your medications? - NONE What problems are you having obtaining your medications? - NONE When is your next appointment with your primary care doctor? - TUESDAY MORNING Additional comments: - REVIEWED 3 WEEKS FOR ASPIRIN + PLAVIX THEN JUST PLAVIX. HE UNDERSTOOD. As per the Pharmacist Discharge Counseling for Stroke Patients Protocol, this phone call has been completed within 72 hours of discharge. Thank you for allowing us to be involved in the care of this patient. Thank you for allowing us to be involved in the care of this patient. - Home Medications: Home Medications Medication Instructions Recorded Confirmed amlodipine 5 mg PO DAILY 10/10/19 10/10/19 lisinopril 20 mg PO DAILY 10/10/19 10/10/19 simvastatin 20 mg PO HS 10/10/19 10/10/19 New Rx's Medication Instructions Recorded aspirin [Aspirin Low Dose] 81 mg PO DAILY 21 Days #21 tab NS 10/12/19 clopidogrel 75 mg PO QAM 30 Days #30 tab 10/12/19
== END 2019-10-12 14:41 | disposition home or self-care (01) | DRG 69 ==
LOC: ED 19:01 → 2E 22:35

== ENCOUNTER 2021-05-09 20:33 | Inpatient (IN) ==
[2021-05-09] MEDS ORDERED: ASPIRIN CHEW 324 MG PO STA (20:46)
--- NOTE | 2021-05-09 20:53 | Emergency Department Note ---
History of Present Illness General Chief complaint: Leg Injury/Pain Stated complaint: PAIN IN LEFT LEG - TROUBLE WALKING Time Seen by Provider: 05/09/21 20:40 History of Present Illness Provider complaint: Left leg pain Onset (ago): day(s) 2 Location: lower extremity and left Severity: moderate Maximum Pain Intensity: 5 Current Pain Intensity: 5 Quality: + aching Associated symptoms: + shortness of breath and + weakness; no chest pain, no cough, no fever/chills, no headaches or no nausea/vomiting 80-year-old male presents emergency department for left lower extremity pain. Patient is here with his daughter. Patient daughter reports the pain started 2 days ago. He reports pain is in his left posterior thigh and behind the left knee. Rates pain is moderate and aching. The patient is not on any blood thinners and does have a history of PE. The daughter states that the patient is also been having exertional dyspnea. No chest pain. Patient is on a statin. Patient is vaccinated against COVID-19. Home Medications Medication Instructions Recorded Confirmed Type amlodipine 5 mg tablet 5 mg PO QAM 10/10/19 05/09/21 History lisinopril 20 mg tablet 20 mg PO QAM 10/10/19 05/09/21 History simvastatin 20 mg tablet 20 mg PO HS 10/10/19 05/09/21 History clopidogrel 75 mg tablet 75 mg PO QAM 12/14/19 05/09/21 History Allergies Allergy/AdvReac Type Severity Reaction Status Date / Time No Known Allergies Allergy Verified 05/09/21 21:27 Past Med/Surg History Medical History History of CVA (cerebrovascular accident) Hypertension Pulmonary embolism TIA (transient ischemic attack) Surgical History No pertinent past surgical history Family History Other Family history non-contributory Social History Smoking Status: Never smoker Second Hand Exposure: No; Hx Alcohol Use: No Hx Substance Use: No Preferred Language: Tajik 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 Ability: Effective Decision Science Analyst Required: No Beliefs That Will Affect Care: None Current Living Situation: Alone Current Living Situation Comment: NO STAIRS, WITH CAT Feels Safe at Home: Yes Assistive Devices: Brace/Splint/Immobilizer Review of Systems A total of 10 systems reviewed and were otherwise negative Physical Exam Vital Signs Vital Signs - 24 hr 05/09/21 20:34 05/09/21 22:59 Temperature 36.9 C Temperature Source Temporal Artery Scan Pulse Rate 73 Pulse Rate [Left Radial] 70 Respiratory Rate 16 16 Respiratory Effort / Characteristics Non-Labored Spontaneous Non-Labored Respiratory Depth Normal Normal Respiratory Pattern Regular Blood Pressure 115/64 Blood Pressure [Left Arm] 140/68 Blood Pressure Mean 81 Blood Pressure Mean [Left Arm] 92 Blood Pressure Position Sitting Pulse Oximetry 99 96 Oxygen Delivery Method Room Air Sepsis Recent Fever Within 48 Hours No Sepsis New/Unexplained Change in Mental Status N/A Sepsis Action Taken by Nursing No Action Required Physical Exam GENERAL: He is oriented to person, place, and time. He appears well-developed and well-nourished. He does not appear distressed. HENT: Exam performed. - Head: Normocephalic and atraumatic. - Right Ear: External ear normal. No mastoid tenderness. - Left Ear: External ear normal. No mastoid tenderness. - Mouth/Throat: The oropharynx is clear and moist. No trismus in the jaw. No dental abscesses or uvula swelling. No oropharyngeal exudate or tonsillar abscesses. EYES: Conjunctivae and EOM are normal. Pupils are equal, round, and reactive to light. Right eye exhibits no discharge. Left eye exhibits no discharge. No scleral icterus. NECK: Normal range of motion. Neck supple. No JVD present. No spinous process tenderness present. No carotid bruit present. No rigidity. No tracheal deviation and normal range of motion present. No Brudzinski's sign and no Kernig's sign noted. CV: Normal rate, regular rhythm, normal heart sounds and intact distal pulses. There is no peripheral edema. Palpable radial pulses bue. PULM/CHEST: Effort normal and breath sounds normal. No respiratory distress. No stridor. He has no wheezes. He has no rales. - Chest Wall: He exhibits no tenderness. ABD: The abdomen is soft. Bowel sounds are normal. He has no distension. No mass is present. There is no tenderness. There is no rebound, no guarding, no Forrest's sign and no tenderness at McBurney's point. Rovsig negative. MUSC/SKEL: Left lower extremity: Pain on palpation of the posterior calf and popliteal area. Palpable DP and PT pulse. Leg is warm. No rash. Right lower extremity: Within normal limits. Palpable DP and PT pulse. Pelvis stable. LYMPH: No cervical adenopathy. NEURO: He is alert and oriented to person, place, and time. He has normal strength. No cranial nerve deficit or sensory deficit. Coordination and gait normal. GCS eye subscore is 4. GCS verbal subscore is 5. GCS motor subscore is 6. Cerebellar tests wnl. SKIN: Skin is warm and dry. He is not diaphoretic. PSYCH: He has a normal mood and affect. Behavior is normal. Judgment and thought content normal. Course Course 2039: The patient was evaluated in room B10. A complete history and physical exam was performed Cardiac monitoring: An order was placed for continuous cardiac monitoring. The monitor shows a rate of 70 with sinus rhythm 2341: Vital signs stable. Labs are within normal limits. Imaging does show DVT of the left lower extremity as well as bilateral PEs more prominent in the right lung. There are also patchy lung densities that are more prominent in the right upper lobe which were present possible infarcts, pneumonitis, or atelectasis. It is thought that the patient is unlikely to have pneumonitis as patient has not had any cough fever or leukocytosis. Patient will be started on heparin bolus and drip and [facility]. Figueredo notified. Administered Medications Discontinued Medications Aspirin (Aspirin Chew 324 Mg) 324 mg PO NOW STA Stop: 05/09/21 20:47 Last Admin: 05/09/21 21:15 Dose: 324 mg Documented by: [id number] Ioversol (Optiray 320 125ml) 120 ml IV ONCE ONE Stop: 05/09/21 21:22 Last Admin: 05/09/21 21:21 Dose: 120 ml Documented by: [id number] Critical Care Time Critical Care Time: Yes Total Critical Care Time: 43 I have personally spent greater than 43 minutes of critical care time in the direct management of this patient. This includes bedside care, interpretation of diagnostic studies, and testing, discussion with consultants, patient, and family members, and other required patient management activities. This 43 minutes is in excess of all separately billable procedures. Medical Decision Making Laboratory Data Result diagrams: 05/09/21 21:00 05/09/21 21:00 Lab Results 05/09/21 05/09/21 05/09/21 Range/Units 21:00 21:00 21:00 WBC 11.70 H (4.8-10.8) K/uL RBC 4.63 L (4.7-6.1) M/uL Hgb 14.5 (14.0-18.0) g/dL POC Hgb (14.0-18.0) g/dl Hct 42.2 (42-52) % POC Hct (42-52) % MCV 91.1 (80-100) fL MCH 31.3 (25-34) pg MCHC 34.4 (32-36) g/dL RDW Std Deviation 48.2 H (36.4-46.3) fL RDW Coeff of Renan 14.4 (11.5-14.5) % Plt Count 273 (130-400) K/uL MPV 9.6 (7.4-10.4) fL Immature Gran % (Auto) 0.4 % Neut % (Auto) 80.6 % Lymph % (Auto) 8.8 % [place] % (Auto) 9.3 % Eos % (Auto) 0.7 % Baso % (Auto) 0.2 % Neut # (Auto) 9.43 H (1.4-6.5) K/uL Lymph # (Auto) 1.03 L (1.2-3.4) K/uL [place] # (Auto) 1.09 H (0.11-0.59) K/uL Eos # (Auto) 0.08 (0-0.5) K/uL Baso # (Auto) 0.02 (0-0.2) K/uL Immature Gran # (Auto) 0.05 H (0.00-0.02) K/uL PT 10.9 (9.0-12.0) Seconds INR 1.1 (0.9-1.1) APTT 26.9 (21.0-31.0) Seconds PTT Ratio 1.0 POC Sodium (135-144) mmol/L Sodium 138 (136-145) mmol/L POC Potassium (3.3-5.0) mmol/L Potassium 3.9 (3.5-5.1) mmol/L POC Chloride (101-112) mmol/L Chloride 107 (98-107) mmol/L Carbon Dioxide 24 (21-32) mmol/L POC Total CO2 (24-31) mmol/L Anion Gap 8.0 (3-11) POC Anion Gap (16-25) mmol/L POC BUN (7-18) mg/dl BUN 22 H (7-18) mg/dl Creatinine 1.13 (0.6-1.4) mg/dl POC Creatinine (0.6-1.3) mg/dl Est Cr Clr Drug Dosing Not Reportable Est GFR ( Amer) 69.8 ml/min Est GFR (Non-Af Amer) 60.2 ml/min BUN/Creatinine Ratio 19.5 (10-20) Glucose 101 H (70-99) mg/dl POC Glucose (other) (70-99) mg/dl Calcium 9.0 (8.5-10.1) mg/dl POC Ioniz Calcium Naif (1.12-1.32) mmol/l Total Creatine Kinase 92 (39-308) U/L Troponin I < 0.015 (0-0.045) ng/ml Lipase 81 (73-393) U/L 05/09/21 Range/Units 21:08 WBC (4.8-10.8) K/uL RBC (4.7-6.1) M/uL Hgb (14.0-18.0) g/dL POC Hgb 13.9 L (14.0-18.0) g/dl Hct (42-52) % POC Hct 41 L (42-52) % MCV (80-100) fL MCH (25-34) pg MCHC (32-36) g/dL RDW Std Deviation (36.4-46.3) fL RDW Coeff of Renan (11.5-14.5) % Plt Count (130-400) K/uL MPV (7.4-10.4) fL Immature Gran % (Auto) % Neut % (Auto) % Lymph % (Auto) % [place] % (Auto) % Eos % (Auto) % Baso % (Auto) % Neut # (Auto) (1.4-6.5) K/uL Lymph # (Auto) (1.2-3.4) K/uL [place] # (Auto) (0.11-0.59) K/uL Eos # (Auto) (0-0.5) K/uL Baso # (Auto) (0-0.2) K/uL Immature Gran # (Auto) (0.00-0.02) K/uL PT (9.0-12.0) Seconds INR (0.9-1.1) APTT (21.0-31.0) Seconds PTT Ratio POC Sodium 140 (135-144) mmol/L Sodium (136-145) mmol/L POC Potassium 4.0 (3.3-5.0) mmol/L Potassium (3.5-5.1) mmol/L POC Chloride 103 (101-112) mmol/L Chloride (98-107) mmol/L Carbon Dioxide (21-32) mmol/L POC Total CO2 23 L (24-31) mmol/L Anion Gap (3-11) POC Anion Gap 19.0 (16-25) mmol/L POC BUN 22 H (7-18) mg/dl BUN (7-18) mg/dl Creatinine (0.6-1.4) mg/dl POC Creatinine 1.1 (0.6-1.3) mg/dl Est Cr Clr Drug Dosing Est GFR ( Amer) ml/min Est GFR (Non-Af Amer) ml/min BUN/Creatinine Ratio (10-20) Glucose (70-99) mg/dl POC Glucose (other) 107 H (70-99) mg/dl Calcium (8.5-10.1) mg/dl POC Ioniz Calcium Naif 1.19 (1.12-1.32) mmol/l Total Creatine Kinase (39-308) U/L Troponin I (0-0.045) ng/ml Lipase (73-393) U/L Imaging Data Radiologist's Impression: PreliminaryFindingsOnly See Final Report For Complete Findings US VENOUS LEFT LOWER EXTREMITY: There is evidence of DVT in the posterior tibial vein. Radiologist: Jadyn Smith M.D. Study ready at 23:12 and initial results transmitted at 23:14 PreliminaryFindingsOnly See Final Report For Complete Findings CTACHEST: Compared to 07/31/08. Motion artifact. Bilateral filling defects compatible with PE, more prominent in the right lung. Patchylung densities most prominent in the right upper lobe, possible infarcts, pneumonitis, or atelectasis. Querytrace pleural and pericardial fluid. Small hiatal hernia. Heterogeneous thyroid with. Adrenal thickening. Radiologist: Jadyn Smith M.D. Study ready at 21:58 and initial results transmitted at 23:23 ECG Data Indication: + SOB/dyspnea Rate (beats per minute): 74 Rhythm: + sinus with SA ECG Intervals/blocks: + Normal QRS, + Normal [place] and + Normal QT-c ECG ST segments: + Normal ST segments [facility] Narrative 2039: The patient was evaluated in room B10. A complete history and physical exam was performed Cardiac monitoring: An order was placed for continuous cardiac monitoring. The monitor shows a rate of 70 with sinus rhythm 2341: Vital signs stable. Labs are within normal limits. Imaging does show DVT of the left lower extremity as well as bilateral PEs more prominent in the right lung. There are also patchy lung densities that are more prominent in the right upper lobe which were present possible infarcts, pneumonitis, or atelectasis. It is thought that the patient is unlikely to have pneumonitis as patient has not had any cough fever or leukocytosis. Patient will be started on heparin bolus and drip and [facility]. Dr. Figueredo notified. Impression & Plan Pulmonary emboli, DVT (deep venous thrombosis) Discharge Plan Visit Data Chief Complaint: Leg Injury/Pain Stated Complaint: PAIN IN LEFT LEG - TROUBLE WALKING ED Provider: Jeffy Arreola Discharge Problem: Pulmonary emboli, DVT (deep venous thrombosis) Patient Disposition: Admitted As Inpatient Forms Stand Alone Forms: [facility] Prescriptions Prescriptions: No Action lisinopril 20 mg tablet 20 mg PO QAM RF: 0 amlodipine 5 mg tablet 5 mg PO QAM RF: 0 simvastatin 20 mg tablet 20 mg PO HS RF: 0 clopidogrel 75 mg tablet 75 mg PO QAM RF: 0 Referrals Referrals: Tacho Dorsey MD [Primary Care Provider] - Discharge Problem: Pulmonary emboli Qualifiers: Pulmonary embolism type: multiple subsegmental (without acute cor pulmonale) Qualified Code(s): I26.94 - Multiple subsegmental pulmonary emboli without acute cor pulmonale DVT (deep venous thrombosis) Qualifiers: DVT location: lower extremity Affected thrombotic vein of extremity: tibial Chronicity: acute Laterality: left Qualified Code(s): I82.442 - Acute embolism and thrombosis of left tibial vein
[2021-05-09 21:20] LABS: iSTAT Creatinine 1.1 mg/dl (0.6-1.3); iSTAT Hemoglobin 13.9 g/dl (14.0-18.0); iSTAT Ionized Calcium 1.19 mmol/l (1.12-1.32)
[2021-05-09 21:20] LABS: INR 1.1 (0.9-1.1); Partial Thromboplastin Time 26.9 Seconds (21.0-31.0); Prothrombin Time 10.9 Seconds (9.0-12.0)
[2021-05-09] MEDS ORDERED: OPTIRAY 320 125ml IV ONE (21:21)
[2021-05-09 21:22] LABS: Basophils # (auto) 0.02 K/uL (0-0.2); Basophils % (auto) 0.2 %; Eosinophils # (auto) 0.08 K/uL (0-0.5); Eosinophils % (auto) 0.7 %; Hematocrit (blood only) 42.2 % (42-52); Hemoglobin 14.5 g/dL (14.0-18.0); Immature Granulocytes # (auto) 0.05 K/uL (0.00-0.02); Immature Granulocytes % (auto) 0.4 %; Lymphocytes # (auto) 1.03 K/uL (1.2-3.4); Lymphocytes % (auto) 8.8 %; Mean Corpuscular Hemoglobin 31.3 pg (25-34); Mean Corpuscular Hgb Conc 34.4 g/dL (32-36); Mean Corpuscular Volume 91.1 fL (80-100); Mean Platelet Volume 9.6 fL (7.4-10.4); Monocytes # (auto) 1.09 K/uL (0.11-0.59); Monocytes % (auto) 9.3 %; Neutrophils # (auto) 9.43 K/uL (1.4-6.5); Neutrophils % (auto) 80.6 %; Platelet Count 273 K/uL (130-400); RDW Coefficient of Variation 14.4 % (11.5-14.5); RDW Standard Deviation 48.2 fL (36.4-46.3); Red Blood Count 4.63 M/uL (4.7-6.1)
[2021-05-09 21:28] LABS: BUN Creatinine Ratio 19.5 (10-20); Blood Urea Nitrogen 22 mg/dl (7-18); Carbon Dioxide 24 mmol/L (21-32); Chloride 107 mmol/L (98-107); Est GFR (African American) 69.8 ml/min; Est GFR (Non-African American) 60.2 ml/min; Glucose 101 mg/dl (70-99); Lipase 81 U/L (73-393); Potassium 3.9 mmol/L (3.5-5.1); Sodium 138 mmol/L (136-145)
[2021-05-09 21:32] LABS: Creatine Kinase 92 U/L (39-308); Troponin I < 0.015 ng/ml (0-0.045)
[2021-05-09] MEDS ORDERED: Heparin IV Adult Wt-Based Standard WITH Bolus Protocol IV STA (23:26)
[2021-05-09] MEDS ORDERED: HEPARIN SOD (PORCINE) 1000 UNIT/ML IV ONE (23:41)
[2021-05-09] MEDS: HEPARIN SODIUM/DEXTROSE 25,000 UNITS/500 ML BAG IV SCH (23:50)
--- NOTE | 2021-05-10 01:56 | History and Physical Report ---
DATE OF ADMISSION: 05/09/21 CHIEF COMPLAINT: Left lower extremity pain and also abdominal discomfort. HISTORY OF PRESENT ILLNESS: This is an 80-year-old male with past medical history significant for hyperlipidemia, history of hypertension, chronic kidney disease stage III, history of right footdrop, history of pulmonary embolism in the past. The patient also had a stroke in 2007. At that time, he was found to have right sided hemiplegia. He stated at this time he was also found to have right lower extremity DVT and also PE. He said he was given some medication to burst his clot in his lungs. He was not sure about being on blood thinners, but he said prior to that he was on aspirin, it was changed to Plavix. Soon he went to rehab and his strength has come back. Now he can ambulate with a cane and also he swallows okay. He is on a regular diet. He lives alone. Daughter comes and checks on him, neighbors help him with food and they check him every day. He says couple of weeks ago, he developed left lower extremity pain. He thought he might sprained his leg while asleep, but then it is not getting better and also the last couple of days he was having some abdominal discomfort, and loose stools.Currently abdominal discomfort resolved. This morning had some loose stools, but now he seems to be getting better. In the ER, he was found to have DVT and PE again, and has been started on IV heparin. Currently, resting comfortably and hemodynamically stable. He says he has some right sided chest pain and while resting it is okay but with taking deep breaths, the pain is more and lately with ambulation he is getting short of breath. Denies any cough, no fever, no chills, no headache, no blurred visions, no earache, no runny nose, no sore throat, no nausea. No blood in the stools or black stools. No hematuria. Normal bladder movements. No swelling in the legs, no rash. ALLERGIES: No known drug allergies. PAST MEDICAL HISTORY: As mentioned above. PAST SURGICAL HISTORY: Colorectal cancer screening. MEDICATIONS: The patient is on amlodipine 5 mg p.o. daily, Plavix 75 mg p.o. daily, lisinopril 20 mg p.o. daily, simvastatin 20 mg p.o. at bedtime. FAMILY HISTORY: No family history on file. SOCIAL HISTORY: , currently lives alone. No smoking, no alcohol, no drug use. REVIEW OF SYSTEMS: As per HPI. Rest of review of systems is negative. PHYSICAL EXAMINATION: GENERAL: The patient is old and frail, not in acute distress. VITAL SIGNS: Temperature 36.9, pulse 70, respiratory rate 16, blood pressure 140/68, oxygen 96% on room air. HEENT: Pupils equal, round and reactive to light. Oral mucosa dry. NECK: No JVD, no neck masses. HEART: S1 and S2 heard. Regular rate and rhythm. No murmur, no gallop. RESPIRATORY SYSTEM: Normal AP diameter. No accessory muscle use. No wheezing, no crackles. ABDOMEN: Soft, bowel sounds are present, nontender, no distention. CENTRAL NERVOUS SYSTEM: Alert and oriented. Speech is clear. Strength 5/5 in all extremities. EXTREMITIES: No edema, no erythema, no tenderness, no swelling noted. LABORATORY DATA: WBC 11.7, hemoglobin 14.4, hematocrit 42.2, platelets 273. PT 10.9, INR 1.1, APTT 26.9. Sodium 138, potassium 3.9, chloride 107, bicarbonate 24, BUN 22, creatinine 1.1, serum glucose 101, calcium 9, total creatinine kinase 92. Troponin I less than 0.015. Lipase 81. Chest x-ray: No acute findings seen. VENOUS DOPPLER: Left lower extremity venous Doppler shows evidence of DVT in the posterior tibial vein. CTA of the chest, preliminary report bilateral filling defects consistent with PE and more prominent in the right lung, patchy lung densities, most prominent in right upper lobe, possible infarcts, pneumonitis or atelectasis. Trace pleural and pericardial fluid. Small hiatal hernia. EKG: Sinus rhythm with PACs at the rate of 74. Nonspecific ST abnormalities. ASSESSMENT AND PLAN: This is an 80-year-old male presents with left lower extremity pain and some chest discomfort and shortness of breath on exertion, found to have PE and DVT. 1. Acute bilateral PE and left lower extremity deep venous thrombosis .Has chest pain, more on taking a deep breath and also shortness of breath with exertion ongoing for the last few days. Left lower extremity pain is for the last one or two weeks. He was started on IV heparin which we will continue. Decision of Coumadin versus novel agents to be decided. Monitor in the [employer] We will also follow echocardiogram. We will also follow troponin in a.m. The patient has a history of PE in the past when he had a stroke and also DVT at that time. 2. Abdominal discomfort and diarrhea seems to be getting better. We will monitor. Continue with gentle fluids 3. History of stroke in 2007 and right hemiplegia, that is improved, on Plavix and statin. 4. History of hypertension. On lisinopril and amlodipine. We will monitor the blood pressure. 5. Chronic kidney disease, stage III. Currently creatinine 1.1. We will follow the labs. 6. Hyperlipidemia, on statin. 7. Deep venous thrombosis prophylaxis, placed on IV heparin. DISPOSITION: Admit to med tele. PT, OT prior to discharge. Social service to help with discharge planning. Level 1 full code as per my discussion with the patient. Job ID: [id number] MTDD
[2021-05-10] MEDS ORDERED: NITROGLYCERIN SL 0.4 MG/TAB TAB SL PRN (02:15)
[2021-05-10] MEDS ORDERED: ONDANSETRON INJ 2 MG/ML 2 ML VIAL IV PRN (02:15)
[2021-05-10] MEDS ORDERED: ACETAMINOPHEN 325 MG TAB PO PRN (02:15)
[2021-05-10] MEDS ORDERED: SODIUM CHLORIDE 0.9% 1000ML 1,000 ML IV SCH (02:45)
[2021-05-10 05:34] LABS: Basophils # (auto) 0.03 K/uL (0-0.2); Basophils % (auto) 0.3 %; Eosinophils # (auto) 0.08 K/uL (0-0.5); Eosinophils % (auto) 0.9 %; Hematocrit (blood only) 39.5 % (42-52); Hemoglobin 13.4 g/dL (14.0-18.0); Immature Granulocytes # (auto) 0.05 K/uL (0.00-0.02); Immature Granulocytes % (auto) 0.6 %; Lymphocytes # (auto) 1.04 K/uL (1.2-3.4); Mean Corpuscular Hemoglobin 31.3 pg (25-34); Mean Corpuscular Hgb Conc 33.9 g/dL (32-36); Mean Corpuscular Volume 92.3 fL (80-100); Mean Platelet Volume 9.2 fL (7.4-10.4); Monocytes % (auto) 10.4 %; Neutrophils # (auto) 6.58 K/uL (1.4-6.5); Neutrophils % (auto) 75.8 %; Platelet Count 264 K/uL (130-400); RDW Coefficient of Variation 14.3 % (11.5-14.5); RDW Standard Deviation 48.5 fL (36.4-46.3); Red Blood Count 4.28 M/uL (4.7-6.1); White Blood Count 8.68 K/uL (4.8-10.8)
[2021-05-10 05:48] LABS: BUN Creatinine Ratio 23.3 (10-20); Blood Urea Nitrogen 22 mg/dl (7-18); Calcium 8.5 mg/dl (8.5-10.1); Carbon Dioxide 26 mmol/L (21-32); Chloride 110 mmol/L (98-107); Creatinine Clr Calc Pharmacy 63.9 ml/min; Est GFR (African American) 89.5 ml/min; Est GFR (Non-African American) 77.2 ml/min; Glucose 90 mg/dl (70-99); Magnesium 2.3 mg/dl (1.8-2.4); Potassium 4.2 mmol/L (3.5-5.1); Sodium 139 mmol/L (136-145)
[2021-05-10 05:49] LABS: Partial Thromboplastin Ratio 2.3
[2021-05-10 05:53] LABS: Troponin I < 0.015 ng/ml (0-0.045)
[2021-05-10 05:57] LABS: Partial Thromboplastin Time 61.8 Seconds (21.0-31.0)
--- NOTE | 2021-05-10 07:13 | XRay Report ---
XR chest 1V portable CLINICAL HISTORY: Chest Pain COMPARISON STUDY: December 14, 2019 FINDINGS: No pneumothorax. No pleural effusion. Small atelectasis is seen at the left base. Mild diffuse prominence of pulmonary interstitium is seen . Interval development of focal subpleural opacity at the lateral aspect of the right mid lung. Cardiomediastinal silhouette is within normal limits in size. No significant pulmonary vascular congestion.. Aorta is tortuous and calcified. Osseous structures: Degenerative changes of the spine. IMPRESSION: 1. Interval development of focal subpleural opacity at the peripheral aspect of the right mid lung. Further evaluation with CT of the chest is suggested. ACT 112: Negative or not required by law. The above report was generated using voice recognition software. It may contain grammatical, syntax o r spelling errors. Electronically signed by: Lucina Acosta DO 05/10/2021 7:12 AM
--- NOTE | 2021-05-10 08:16 | CT Scan Report ---
CT ANGIOGRAM OF THE CHEST CLINICAL HISTORY: ro PE COMPARISON STUDY: July 31, 2000 day TECHNIQUE: Following the IV administration of 120 mL of Optiray, CT angiogram of the thorax was perfo rmed from the thoracic inlet to the lung bases utilizing the pulmonary embolus protocol. Images are r eviewed in the axial, sagittal, and coronal planes. IV contrast was administered without complication . MIP imaging was performed. A dose lowering technique was utilized adhering to the principles of AL GURPREET. CT DOSE: 321.18 mGy.cm FINDINGS: There is adequate opacification within main pulmonary artery. Acute pulmonary embolus is seen within left upper lobe and right upper, mid and lower lobe pulmonary artery branches. Main pulmonary artery is normal in caliber. No evidence of right heart strain. Mild four-chamber cardiomegaly seen without significant pericardial effusion. Moderate coronary calci fications are demonstrated. No pathologically enlarged axillary mediastinal or hilar lymph nodes were visualized. Visualized portion of thyroid gland shows ill-defined hypoattenuating nodule within the right thyroid lobe measuring approximately 1.2 cm in size. Small hiatal hernia is seen. Thoracic aorta is tortuous, normal in caliber with scattered calcifications of its wall. Tracheobronchial tree is patent. There is peripheral mixed consolidative and groundglass opacities at the subpleural aspect of the rig ht middle lobe and right upper lobe (series 4 images 188 and 167) which might represent pulmonary inf arction. Small pleural effusion is seen on the right, possibly associated with mild atelectasis of dependent p ortion of the right lower lobe. Evaluation of pulmonary parenchyma is limited due to motion artifact. Limited evaluation of upper abdominal viscera shows no acute abnormalities. Osseous structures: Severe multilevel degenerative changes of the spine. IMPRESSION: 1. Acute pulmonary embolus involving left upper lobe and right upper, middle lower lobes branches of pulmonary artery. Possible pulmonary infarct on the right as detailed above. No right heart strain o r main pulmonary artery dilatation is seen. 2. Minimal right pleural effusion. 3. Atherosclerosis. 4. Mild four-chamber cardiomegaly. 5. The rest of findings as above. ACT 112: Negative or not required by law. The above report was generated using voice recognition software. It may contain grammatical, syntax o r spelling errors. Electronically signed by: Lucina Acosta DO 05/10/2021 8:15 AM
[2021-05-10] MEDS: CLOPIDOGREL BISULFATE 75 MG TAB PO SCH (08:27)
[2021-05-10] MEDS: amLODIPine BESYLATE 5 MG TAB PO SCH (08:28)
[2021-05-10] MEDS: lisinopril 20 MG TAB PO SCH (08:28)
--- NOTE | 2021-05-10 08:30 | Ultrasound Report ---
LEFT LOWER EXTREMITY VENOUS DOPPLER CLINICAL HISTORY: Left lower extremity swelling. COMPARISON STUDY: No previous studies for comparison. TECHNIQUE: Sonography of the deep venous system of the left lower extremity was performed. Compressi on and augmentation were evaluated. FINDINGS: The left common femoral, superficial femoral and popliteal veins were compressible. Augmen tation was normal. Note is made of occlusive deep venous thrombus within the left posterior tibial ve in. IMPRESSION: Deep venous thrombus within the left posterior tibial vein. ACT 112: Negative or not required by law. Electronically signed by: Alexander Hunter M.D. 05/10/2021 8:29 AM
--- NOTE | 2021-05-10 11:52 | Electrocardiogram Report ---
Test Reason : Blood Pressure : / mmHG Vent. Rate : 074 BPM Atrial Rate : 074 BPM P-R Int : 178 ms QRS Dur : 088 ms QT Int : 416 ms P-R-T Axes : 058 -47 049 degrees QTc Int : 461 ms Sinus rhythm with Premature atrial complexes Left anterior fascicular block Abnormal ECG When compared with ECG of 14-DEC-2019 18:58, Premature atrial complexes are now Present QT has lengthened Confirmed by Shantanu Tidwell ([id number]) on 05/10/2021 11:52:20 AM Referred By: REFERRED SELF Confirmed By:Shantanu Tidwell
--- NOTE | 2021-05-10 17:05 | Hospitalist Progress Note ---
Date of Service May 10, 2021 Assessment & Plan (1) Pulmonary emboli: (2) DVT (deep venous thrombosis): (3) History of CVA (cerebrovascular accident): Plan: This is an 80-year-old male presents with left lower extremity pain and some chest discomfort and shortness of breath on exertion, found to have PE and DVT. 1. Acute bilateral PE and left lower extremity DVT. Has chest pain, more on taking a deep breath and also shortness of breath with exertion ongoing for the last few days. Left lower extremity pain is for the last one or two weeks. He was started on IV heparin which we will continue. Decision of Coumadin versus novel agents to be decided. Monitor in the [employer] tele. We will also follow echocardiogram. Troponin - negative The patient has a history of PE in the past when he had a stroke and also DVT at that time. At that time, patient had IVC filter placed (permanent), July 2008, with Dr. Coats ([facility]) It is not clear at this time, why patient was not on anticoagulation (contraindication?), or if his IVC filter is not functioning properly. Will discuss further with hematology, Dr. Uriarte and vascular surgery, Dr. Mccann on Tuesday (tomorrow) 2. Abdominal discomfort and diarrhea on admission Seems to be getting better. We will monitor. Continue with gentle fluids At this time denies any abdominal pain or discomfort 3. History of stroke in 2007 and right hemiplegia, that is improved, on Plavix and statin. 4. History of hypertension. On lisinopril and amlodipine. We will monitor the blood pressure. 5. Chronic kidney disease, stage III. Currently creatinine 1.1. We will follow the labs. 6. Hyperlipidemia, on statin. DVT prophylaxis, placed on IV heparin. DISPOSITION: Admit to [facility]. PT, OT prior to discharge. Social service to help with discharge planning. Full code as per discussion with the admitting provider and the patient. Admission and Anticipated Discharge Date Admission Date: May 10, 2021 Subjective Patient seen in follow-up of acute PE, DVT History of PE DVT, and IVC filter currently on IV heparin sitting up in bed, in no acute distress Is alert oriented, answering questions appropriately Says his leg is feeling better, and chest is uncomfortable only when he takes a very deep breath Review of Systems Constitutional: no fever and no chills Respiratory: no cough and no dyspnea Cardiovascular: + chest pain (pleuritic chest pain) Gastrointestinal: no abdominal pain, no nausea and no vomiting Physical Exam Physical Exam: GENERAL: The patient is old and frail, not in acute distress. HEENT: NC/AT, EOMI, Pupils equal, round and reactive to light. Oral mucosa dry. NECK: No JVD, no neck masses. HEART: S1 and S2 heard. Regular rate and rhythm. No murmur, no gallop. RESPIRATORY: Normal AP diameter. No accessory muscle use. No wheezing, no crackles. ABDOMEN: Soft, bowel sounds are present, nontender, no distention. NEURO: Alert and oriented. Speech is clear. Moves extremities. EXTREMITIES: No edema, no erythema, no tenderness, no swelling noted. Results & Data Results & Data ([facility]) Vital Signs (Past 12 Hours) Vital Signs Temp Pulse Pulse Resp BP Pulse Ox 05/10/21 15:47 75 05/10/21 15:44 36.7 C 72 18 144/69 H 90 05/10/21 11:19 36.9 C 64 18 106/62 92 05/10/21 09:00 60 05/10/21 07:50 36.4 C L 63 18 125/71 92 Laboratory Results 05/10/21 05/10/21 05/10/21 Range/Units 05:22 05:22 05:22 WBC 8.68 (4.8-10.8) K/uL RBC 4.28 L (4.7-6.1) M/uL Hgb 13.4 L (14.0-18.0) g/dL POC Hgb (14.0-18.0) g/dl Hct 39.5 L (42-52) % POC Hct (42-52) % MCV 92.3 (80-100) fL MCH 31.3 (25-34) pg MCHC 33.9 (32-36) g/dL RDW Std Deviation 48.5 H (36.4-46.3) fL RDW Coeff of Renan 14.3 (11.5-14.5) % Plt Count 264 (130-400) K/uL MPV 9.2 (7.4-10.4) fL Immature Gran % (Auto) 0.6 % Neut % (Auto) 75.8 % Lymph % (Auto) 12.0 % [place] % (Auto) 10.4 % Eos % (Auto) 0.9 % Baso % (Auto) 0.3 % Neut # (Auto) 6.58 H (1.4-6.5) K/uL Lymph # (Auto) 1.04 L (1.2-3.4) K/uL Limestone # (Auto) 0.90 H (0.11-0.59) K/uL Eos # (Auto) 0.08 (0-0.5) K/uL Baso # (Auto) 0.03 (0-0.2) K/uL Immature Gran # (Auto) 0.05 H (0.00-0.02) K/uL PT (9.0-12.0) Seconds INR (0.9-1.1) APTT 61.8 H* (21.0-31.0) Seconds PTT Ratio 2.3 POC Sodium (135-144) mmol/L Sodium 139 (136-145) mmol/L POC Potassium (3.3-5.0) mmol/L Potassium 4.2 (3.5-5.1) mmol/L POC Chloride (101-112) mmol/L Chloride 110 H (98-107) mmol/L Carbon Dioxide 26 (21-32) mmol/L POC Total CO2 (24-31) mmol/L Anion Gap 3.0 (3-11) POC Anion Gap (16-25) mmol/L POC BUN (7-18) mg/dl BUN 22 H (7-18) mg/dl Creatinine 0.92 (0.6-1.4) mg/dl POC Creatinine (0.6-1.3) mg/dl Est Cr Clr Drug Dosing 63.9 Est GFR ( Amer) 89.5 ml/min Est GFR (Non-Af Amer) 77.2 ml/min BUN/Creatinine Ratio 23.3 H (10-20) Glucose 90 (70-99) mg/dl POC Glucose (other) (70-99) mg/dl Calcium 8.5 (8.5-10.1) mg/dl POC Ioniz Calcium Naif (1.12-1.32) mmol/l Magnesium 2.3 (1.8-2.4) mg/dl Total Creatine Kinase (39-308) U/L Troponin I < 0.015 (0-0.045) ng/ml Lipase (73-393) U/L COVID-19 Eval Order SARS-CoV-2 (PCR) (Negative) 05/09/21 05/09/21 05/09/21 Range/Units 23:33 23:33 21:08 WBC (4.8-10.8) K/uL RBC (4.7-6.1) M/uL Hgb (14.0-18.0) g/dL POC Hgb 13.9 L (14.0-18.0) g/dl Hct (42-52) % POC Hct 41 L (42-52) % MCV (80-100) fL MCH (25-34) pg MCHC (32-36) g/dL RDW Std Deviation (36.4-46.3) fL RDW Coeff of Renan (11.5-14.5) % Plt Count (130-400) K/uL MPV (7.4-10.4) fL Immature Gran % (Auto) % Neut % (Auto) % Lymph % (Auto) % [place] % (Auto) % Eos % (Auto) % Baso % (Auto) % Neut # (Auto) (1.4-6.5) K/uL Lymph # (Auto) (1.2-3.4) K/uL Limestone # (Auto) (0.11-0.59) K/uL Eos # (Auto) (0-0.5) K/uL Baso # (Auto) (0-0.2) K/uL Immature Gran # (Auto) (0.00-0.02) K/uL PT (9.0-12.0) Seconds INR (0.9-1.1) APTT (21.0-31.0) Seconds PTT Ratio POC Sodium 140 (135-144) mmol/L Sodium (136-145) mmol/L POC Potassium 4.0 (3.3-5.0) mmol/L Potassium (3.5-5.1) mmol/L POC Chloride 103 (101-112) mmol/L Chloride (98-107) mmol/L Carbon Dioxide (21-32) mmol/L POC Total CO2 23 L (24-31) mmol/L Anion Gap (3-11) POC Anion Gap 19.0 (16-25) mmol/L POC BUN 22 H (7-18) mg/dl BUN (7-18) mg/dl Creatinine (0.6-1.4) mg/dl POC Creatinine 1.1 (0.6-1.3) mg/dl Est Cr Clr Drug Dosing Est GFR ( Amer) ml/min Est GFR (Non-Af Amer) ml/min BUN/Creatinine Ratio (10-20) Glucose (70-99) mg/dl POC Glucose (other) 107 H (70-99) mg/dl Calcium (8.5-10.1) mg/dl POC Ioniz Calcium Naif 1.19 (1.12-1.32) mmol/l Magnesium (1.8-2.4) mg/dl Total Creatine Kinase (39-308) U/L Troponin I (0-0.045) ng/ml Lipase (73-393) U/L COVID-19 Eval Order Covid19 at [facility] SARS-CoV-2 (PCR) NEGATIVE (Negative) 05/09/21 05/09/21 05/09/21 Range/Units 21:00 21:00 21:00 WBC 11.70 H (4.8-10.8) K/uL RBC 4.63 L (4.7-6.1) M/uL Hgb 14.5 (14.0-18.0) g/dL POC Hgb (14.0-18.0) g/dl Hct 42.2 (42-52) % POC Hct (42-52) % MCV 91.1 (80-100) fL MCH 31.3 (25-34) pg MCHC 34.4 (32-36) g/dL RDW Std Deviation 48.2 H (36.4-46.3) fL RDW Coeff of Renan 14.4 (11.5-14.5) % Plt Count 273 (130-400) K/uL MPV 9.6 (7.4-10.4) fL Immature Gran % (Auto) 0.4 % Neut % (Auto) 80.6 % Lymph % (Auto) 8.8 % [place] % (Auto) 9.3 % Eos % (Auto) 0.7 % Baso % (Auto) 0.2 % Neut # (Auto) 9.43 H (1.4-6.5) K/uL Lymph # (Auto) 1.03 L (1.2-3.4) K/uL [place] # (Auto) 1.09 H (0.11-0.59) K/uL Eos # (Auto) 0.08 (0-0.5) K/uL Baso # (Auto) 0.02 (0-0.2) K/uL Immature Gran # (Auto) 0.05 H (0.00-0.02) K/uL PT 10.9 (9.0-12.0) Seconds INR 1.1 (0.9-1.1) APTT 26.9 (21.0-31.0) Seconds PTT Ratio 1.0 POC Sodium (135-144) mmol/L Sodium 138 (136-145) mmol/L POC Potassium (3.3-5.0) mmol/L Potassium 3.9 (3.5-5.1) mmol/L POC Chloride (101-112) mmol/L Chloride 107 (98-107) mmol/L Carbon Dioxide 24 (21-32) mmol/L POC Total CO2 (24-31) mmol/L Anion Gap 8.0 (3-11) POC Anion Gap (16-25) mmol/L POC BUN (7-18) mg/dl BUN 22 H (7-18) mg/dl Creatinine 1.13 (0.6-1.4) mg/dl POC Creatinine (0.6-1.3) mg/dl Est Cr Clr Drug Dosing Not Reportable Est GFR ( Amer) 69.8 ml/min Est GFR (Non-Af Amer) 60.2 ml/min BUN/Creatinine Ratio 19.5 (10-20) Glucose 101 H (70-99) mg/dl POC Glucose (other) (70-99) mg/dl Calcium 9.0 (8.5-10.1) mg/dl POC Ioniz Calcium Naif (1.12-1.32) mmol/l Magnesium (1.8-2.4) mg/dl Total Creatine Kinase 92 (39-308) U/L Troponin I < 0.015 (0-0.045) ng/ml Lipase 81 (73-393) U/L COVID-19 Eval Order SARS-CoV-2 (PCR) (Negative) Medications Administered Current Inpatient Medications Acetaminophen (Acetaminophen 325 Mg Tab) 650 mg PO Q4H PRN PRN Reason: Pain or Fever Stop: 06/09/21 02:14 Amlodipine Besylate (A[facility]ipine Besylate 5 Mg Tab) [facility] Stop: 06/09/21 08:59 Last Admin: 05/10/21 08:28 Dose: 5 mg Documented by: Clopidogrel Bisulfate (Clopidogrel Bisulfate 75 Mg Tab) [facility] [place] Stop: 06/09/21 08:59 Last Admin: 05/10/21 08:27 Dose: 75 mg Documented by: Heparin Sodium/Dextrose (Heparin Sodium/Dextrose) 25,000 units in 500 mls @ 27 mls/hr IV .[id number] [facility]; Protocol Stop: 06/08/21 23:44 Last Titration: 05/10/21 03:21 Dose: 1,350 units/hr, 27 mls/hr Documented by: Lisinopril (Lisinopril 20 Mg Tab) 20 mg PO [facility] Stop: 06/09/21 08:59 Last Admin: 05/10/21 08:28 Dose: 20 mg Documented by: Nitroglycerin (Nitroglycerin Sl 0.4 Mg/Tab Tab) 0.4 mg SL UD PRN PRN Reason: Chest Pain Stop: 06/09/21 02:14 Ondansetron HCl (Ondansetron Inj 2 Mg/Ml 2 Ml Vial) 4 mg IV Q6H PRN PRN Reason: Nausea Stop: 06/09/21 02:14 Simvastatin (Simvastatin 20 Mg Tab) 20 mg PO [facility] Stop: 06/09/21 20:59 (1) Pulmonary emboli Pulmonary embolism type: multiple subsegmental (without acute cor pulmonale) Qualified Code(s): I26.94 - Multiple subsegmental pulmonary emboli without acute cor pulmonale (2) DVT (deep venous thrombosis) Affected thrombotic vein of extremity: tibial Chronicity: acute DVT location: lower extremity Laterality: left Qualified Code(s): I82.442 - Acute embolism and thrombosis of left tibial vein
[2021-05-10] MEDS: HEPARIN SODIUM/DEXTROSE 25,000 UNITS/500 ML BAG IV SCH (18:35)
[2021-05-10] MEDS: SIMVASTATIN 20 MG TAB PO SCH (21:40)
[2021-05-11 06:57] LABS: Hematocrit (blood only) 38.2 % (42-52); Hemoglobin 13.2 g/dL (14.0-18.0); Mean Corpuscular Hemoglobin 31.7 pg (25-34); Mean Corpuscular Hgb Conc 34.6 g/dL (32-36); Mean Corpuscular Volume 91.6 fL (80-100); Mean Platelet Volume 9.6 fL (7.4-10.4); Platelet Count 264 K/uL (130-400); RDW Coefficient of Variation 14.5 % (11.5-14.5); RDW Standard Deviation 49.1 fL (36.4-46.3); Red Blood Count 4.17 M/uL (4.7-6.1); White Blood Count 8.41 K/uL (4.8-10.8)
[2021-05-11 07:20] LABS: Partial Thromboplastin Ratio 2.2
[2021-05-11 07:25] LABS: Partial Thromboplastin Time 57.1 Seconds (21.0-31.0)
[2021-05-11 07:28] LABS: BUN Creatinine Ratio 18.6 (10-20); Calcium 8.6 mg/dl (8.5-10.1); Creatinine Clr Calc Pharmacy 56.5 ml/min; Est GFR (African American) 77.1 ml/min; Est GFR (Non-African American) 66.6 ml/min; Magnesium 2.2 mg/dl (1.8-2.4); Phosphorus 2.3 mg/dl (2.5-4.9); Potassium 3.5 mmol/L (3.5-5.1)
[2021-05-11] MEDS: amLODIPine BESYLATE 5 MG TAB PO SCH (08:25)
[2021-05-11] MEDS: lisinopril 20 MG TAB PO SCH (08:25)
[2021-05-11] MEDS: CLOPIDOGREL BISULFATE 75 MG TAB PO SCH (08:25)
--- NOTE | 2021-05-11 09:44 | Hospitalist Progress Note ---
Date of Service May 11, 2021 Assessment & Plan (1) Pulmonary emboli: (2) DVT (deep venous thrombosis): (3) History of CVA (cerebrovascular accident): Plan: This is an 80-year-old male presents with left lower extremity pain and some chest discomfort and shortness of breath on exertion, found to have PE and DVT. 1. Acute bilateral PE and left lower extremity DVT. Has chest pain, more on taking a deep breath and also shortness of breath with exertion ongoing for the last few days. Left lower extremity pain is for the last one or two weeks. He was started on IV heparin which we will continue. Decision of Coumadin versus novel agents to be decided. Monitor in the med tele. We will also follow echocardiogram. Troponin - negative The patient has a history of PE in the past when he had a stroke and also DVT at that time. At that time, patient had IVC filter placed (permanent), July 2008, with Dr. Woodson ([facility]) It is not clear at this time, why patient was not on anticoagulation (contraindication?), or if his IVC filter is not functioning properly. Will discuss further with hematology, Dr. Uriarte and vascular surgery - Dr. Winchester (per surgery, nothing to evaluate IVC filter, unfortunately it can happen if patient would have PE after IVC filter due to collaterals especially if filter was placed years ago, patient will need anticoagulation and work-up for possible hypercoagulable state) 2. Abdominal discomfort and diarrhea on admission Seems to be getting better. We will monitor. Continue with gentle fluids At this time denies any abdominal pain or discomfort 3. History of stroke in 2007 and right hemiplegia, that is improved, on Plavix and statin. 4. History of hypertension. On lisinopril and amlodipine. We will monitor the blood pressure. 5. Chronic kidney disease, stage III. Currently creatinine 1.1. We will follow the labs. 6. Hyperlipidemia, on statin. DVT prophylaxis, placed on IV heparin. DISPOSITION: Admit to [facility] PT, OT prior to discharge. Social service to help with discharge planning. Full code as per discussion with the admitting provider and the patient. Admission and Anticipated Discharge Date Admission Date: May 10, 2021 Subjective Patient seen in follow-up of acute PE, DVT History of PE DVT, and IVC filter currently on IV heparin sitting up in bed, in no acute distress Is alert oriented, answering questions appropriately Says his leg is feeling better, and chest is uncomfortable only when he takes a very deep breath or coughs Review of Systems Constitutional: no fever and no chills Respiratory: no cough and no dyspnea Cardiovascular: + chest pain (pleuritic chest pain) Gastrointestinal: no abdominal pain, no nausea and no vomiting Physical Exam Physical Exam: GENERAL: The patient is old and frail, not in acute distress. HEENT: NC/AT, EOMI, Pupils equal, round and reactive to light. Oral mucosa dry. NECK: No JVD, no neck masses. HEART: S1 and S2 heard. Regular rate and rhythm. No murmur, no gallop. RESPIRATORY: Normal AP diameter. No accessory muscle use. No wheezing, no crackles. ABDOMEN: Soft, bowel sounds are present, nontender, no distention. NEURO: Alert and oriented. Speech is clear. Moves extremities. EXTREMITIES: No edema, no erythema, no tenderness, no swelling noted. Results & Data Results & Data ([facility]) Vital Signs (Past 12 Hours) Vital Signs Temp Pulse Pulse Resp BP Pulse Ox 05/11/21 08:16 61 05/11/21 08:05 37.3 C 60 18 130/76 90 05/11/21 04:00 37 C 66 18 138/76 91 05/10/21 22:37 36.9 C 66 18 122/74 90 05/10/21 22:18 64 Laboratory Results 05/11/21 05/11/21 05/11/21 Range/Units 06:29 06:29 06:29 WBC 8.41 (4.8-10.8) K/uL RBC 4.17 L (4.7-6.1) M/uL Hgb 13.2 L (14.0-18.0) g/dL Hct 38.2 L (42-52) % MCV 91.6 (80-100) fL MCH 31.7 (25-34) pg MCHC 34.6 (32-36) g/dL RDW Std Deviation 49.1 H (36.4-46.3) fL RDW Coeff of Renan 14.5 (11.5-14.5) % Plt Count 264 (130-400) K/uL MPV 9.6 (7.4-10.4) fL APTT 57.1 H* (21.0-31.0) Seconds PTT Ratio 2.2 Sodium 140 (136-145) mmol/L Potassium 3.5 D (3.5-5.1) mmol/L Chloride 109 H (98-107) mmol/L Carbon Dioxide 25 (21-32) mmol/L Anion Gap 6.0 (3-11) BUN 19 H (7-18) mg/dl Creatinine 1.04 (0.6-1.4) mg/dl Est Cr Clr Drug Dosing 56.5 ml/min Est GFR ( Amer) 77.1 ml/min Est GFR (Non-Af Amer) 66.6 ml/min BUN/Creatinine Ratio 18.6 (10-20) Glucose 90 (70-99) mg/dl Calcium 8.6 (8.5-10.1) mg/dl Phosphorus 2.3 L (2.5-4.9) mg/dl Magnesium 2.2 (1.8-2.4) mg/dl Medications Administered Current Inpatient Medications Acetaminophen (Acetaminophen 325 Mg Tab) 650 mg PO Q4H PRN PRN Reason: Pain or Fever Stop: 06/09/21 02:14 Amlodipine Besylate (Amlodipine Besylate 5 Mg Tab) 5 mg PO [facility] Stop: 06/09/21 08:59 Last Admin: 05/11/21 08:25 Dose: 5 mg Documented by: Clopidogrel Bisulfate (Clopidogrel Bisulfate 75 Mg Tab) 75 mg PO [facility] Stop: 06/09/21 08:59 Last Admin: 05/11/21 08:25 Dose: 75 mg Documented by: Heparin Sodium/Dextrose (Heparin Sodium/Dextrose) 25,000 units in 500 mls @ 27 mls/hr IV .[id number] [facility]; Protocol Stop: 06/08/21 23:44 Last Titration: 05/11/21 07:24 Dose: 1,350 units/hr, 27 mls/hr Documented by: Lisinopril (Lisinopril 20 Mg Tab) 20 mg PO [facility] Stop: 06/09/21 08:59 Last Admin: 05/11/21 08:25 Dose: 20 mg Documented by: Nitroglycerin (Nitroglycerin Sl 0.4 Mg/Tab Tab) 0.4 mg SL UD PRN PRN Reason: Chest Pain Stop: 06/09/21 02:14 Ondansetron HCl (Ondansetron Inj 2 Mg/Ml 2 Ml Vial) 4 mg IV Q6H PRN PRN Reason: Nausea Stop: 06/09/21 02:14 Simvastatin (Simvastatin 20 Mg Tab) 20 mg PO HS [facility] Stop: 06/09/21 20:59 Last Admin: 05/10/21 21:40 Dose: 20 mg Documented by: (1) DVT (deep venous thrombosis) Affected thrombotic vein of extremity: tibial Chronicity: acute DVT location: lower extremity Laterality: left Qualified Code(s): I82.442 - Acute embolism and thrombosis of left tibial vein (2) Pulmonary emboli Pulmonary embolism type: multiple subsegmental (without acute cor pulmonale) Qualified Code(s): I26.94 - Multiple subsegmental pulmonary emboli without acute cor pulmonale
[2021-05-11] MEDS ORDERED: POTASSIUM CHLORIDE PWD 20 MEQ PACK PO ONE (09:45)
[2021-05-11] MEDS: HEPARIN SODIUM/DEXTROSE 25,000 UNITS/500 ML BAG IV SCH ×2 (13:35→17:14)
[2021-05-11] MEDS: SIMVASTATIN 20 MG TAB PO SCH (19:35)
[2021-05-12] MEDS: CLOPIDOGREL BISULFATE 75 MG TAB PO SCH (08:11)
[2021-05-12] MEDS: amLODIPine BESYLATE 5 MG TAB PO SCH (08:11)
[2021-05-12] MEDS: lisinopril 20 MG TAB PO SCH (08:11)
[2021-05-12 08:15] LABS: Hematocrit (blood only) 38.7 % (42-52); Hemoglobin 13.1 g/dL (14.0-18.0); Mean Corpuscular Hemoglobin 31.2 pg (25-34); Mean Corpuscular Hgb Conc 33.9 g/dL (32-36); Mean Corpuscular Volume 92.1 fL (80-100); Mean Platelet Volume 9.5 fL (7.4-10.4); Platelet Count 272 K/uL (130-400); RDW Coefficient of Variation 14.6 % (11.5-14.5); RDW Standard Deviation 49.2 fL (36.4-46.3)
[2021-05-12 08:41] LABS: Partial Thromboplastin Ratio 1.9
[2021-05-12 08:44] LABS: BUN Creatinine Ratio 15.6 (10-20); Calcium 8.6 mg/dl (8.5-10.1); Creatinine Clr Calc Pharmacy 54.4 ml/min; Est GFR (African American) 73.7 ml/min; Est GFR (Non-African American) 63.6 ml/min; Potassium 3.6 mmol/L (3.5-5.1)
--- NOTE | 2021-05-12 08:45 | Hospitalist Progress Note ---
Date of Service May 12, 2021 Assessment & Plan (1) Pulmonary emboli: (2) DVT (deep venous thrombosis): (3) History of CVA (cerebrovascular accident): Plan: This is an 80-year-old male presents with left lower extremity pain and some chest discomfort and shortness of breath on exertion, found to have PE and DVT. 1. Acute bilateral PE and left lower extremity DVT. Has chest pain, more on taking a deep breath and also shortness of breath with exertion ongoing for the last few days. Left lower extremity pain is for the last one or two weeks. He was started on IV heparin which we will continue. Decision of Coumadin versus novel agents to be decided. Monitor in the med tele. Echocardiogram obtained -EF 65 to 70%. No regional wall motion abnormalities noted. Aortic valve sclerosis moderate, without significant aortic valvular stenosis. There is mild tricuspid regurg. The estimated systolic pulmonary pressure 48 mmHg. Small loculated anterior pericardial effusion with mild o rganization. There are no echocardiographic indications of cardiac tamponade. Grade 1 diastolic dysfunction. Troponin - negative The patient has a history of PE in the past when he had a stroke and also DVT at that time. At that time, patient had IVC filter placed (permanent), July 2008, with Dr. Winchester ([facility]) Per chart review, patient was on Coumadin, followed by anticoagulation clinic, and Coumadin was stopped in December 2008. Discussed w/vascular surgery - Dr. Winchester (per surgery, nothing to evaluate IVC filter, unfortunately it can happen that patient can have PE after IVC filter due to collaterals especially if filter was placed years ago, patient will need anticoagulation and work-up for possible hypercoagulable state) Discussed with Dr. Uriarte (hematology) - we will try to place patient on Eliquis, versus Coumadin. Eliquis Rx sent to patient's pharmacy, will check on vu before discharge. Patient's daughter updated over the phone. She does not recall any bleeding difficulties/ issues in the past. 2. Abdominal discomfort and diarrhea on admission Seems to be getting better. We will monitor. Continue with gentle fluids At this time denies any abdominal pain or discomfort 3. History of stroke in 2007 and right hemiplegia, that is improved, on Plavix and statin. 4. History of hypertension. On lisinopril and amlodipine. We will monitor the blood pressure. 5. Chronic kidney disease, stage III. Currently creatinine 1.1. We will follow the labs. 6. Hyperlipidemia, on statin. DVT prophylaxis, placed on IV heparin. DISPOSITION: Admit to med tele. PT, OT prior to discharge. PT OT recommends rehab, patient's daughter is also in agreement. We will discuss further with the patient and supportive employment case manager. Full code as per discussion with the admitting provider and the patient. Admission and Anticipated Discharge Date Admission Date: May 10, 2021 Subjective Patient seen in follow-up of acute PE, DVT History of PE DVT, and IVC filter currently on IV heparin sitting up in bed, in no acute distress Is alert oriented, answering questions appropriately Says his leg is feeling better, and chest is uncomfortable only when he takes a very deep breath or coughs He was able to walk in the hallway, says he did have any issues with that, PT recommends rehab Updated patient's daughter, she is in agreement with rehab as well, will need to discuss with the patient and supportive employment case managermanager action of Systems Constitutional: no fever and no chills Respiratory: no cough and no dyspnea Cardiovascular: + chest pain (pleuritic chest pain (much improved)) Gastrointestinal: no abdominal pain, no nausea and no vomiting Physical Exam Physical Exam: GENERAL: The patient is old and frail, not in acute distress. HEENT: NC/AT, EOMI, Pupils equal, round and reactive to light. Oral mucosa dry. NECK: No JVD, no neck masses. HEART: S1 and S2 heard. Regular rate and rhythm. No murmur, no gallop. RESPIRATORY: Normal AP diameter. No accessory muscle use. No wheezing, no crackles. ABDOMEN: Soft, bowel sounds are present, nontender, no distention. NEURO: Alert and oriented. Speech is clear. Moves extremities. EXTREMITIES: No edema, no erythema, no tenderness, no swelling noted. Results & Data Results & Data ([facility]) Vital Signs (Past 12 Hours) Vital Signs Temp Pulse Pulse Resp BP BP Pulse Ox 05/12/21 08:10 151/68 H 05/12/21 07:26 36.5 C 70 18 132/72 91 05/12/21 07:00 75 05/12/21 04:37 36.9 C 84 18 133/78 90 05/11/21 23:59 58 L 05/11/21 23:00 36.8 C 64 20 113/67 91 Laboratory Results 05/12/21 05/12/21 05/12/21 Range/Units 07:13 07:13 07:13 WBC 8.40 (4.8-10.8) K/uL RBC 4.20 L (4.7-6.1) M/uL Hgb 13.1 L (14.0-18.0) g/dL Hct 38.7 L (42-52) % MCV 92.1 (80-100) fL MCH 31.2 (25-34) pg MCHC 33.9 (32-36) g/dL RDW Std Deviation 49.2 H (36.4-46.3) fL RDW Coeff of Renan 14.6 H (11.5-14.5) % Plt Count 272 (130-400) K/uL MPV 9.5 (7.4-10.4) fL APTT Pending PTT Ratio Pending Sodium Pending Potassium Pending Chloride Pending Carbon Dioxide Pending Anion Gap Pending BUN Pending Creatinine Pending Est Cr Clr Drug Dosing Pending Est GFR ( Amer) Pending Est GFR (Non-Af Amer) Pending BUN/Creatinine Ratio Pending Glucose Pending Calcium Pending Medications Administered Current Inpatient Medications Acetaminophen (Acetaminophen 325 Mg Tab) 650 mg PO Q4H PRN PRN Reason: Pain or Fever Stop: 06/09/21 02:14 Amlodipine Besylate (Amlodipine Besylate 5 Mg Tab) 5 mg PO [facility] Stop: 06/09/21 08:59 Last Admin: 05/12/21 08:11 Dose: 5 mg Documented by: Clopidogrel Bisulfate (Clopidogrel Bisulfate 75 Mg Tab) 75 mg PO [facility] Stop: 06/09/21 08:59 Last Admin: 05/12/21 08:11 Dose: 75 mg Documented by: Heparin Sodium/Dextrose (Heparin Sodium/Dextrose) 25,000 units in 500 mls @ 27 mls/hr IV .[id number] [facility]; Protocol Stop: 06/08/21 23:44 Last Titration: 05/12/21 06:43 Dose: 1,350 units/hr, 27 mls/hr Documented by: Lisinopril (Lisinopril 20 Mg Tab) 20 mg PO [facility] Stop: 06/09/21 08:59 Last Admin: 05/12/21 08:11 Dose: 20 mg Documented by: Nitroglycerin (Nitroglycerin Sl 0.4 Mg/Tab Tab) 0.4 mg SL UD PRN PRN Reason: Chest Pain Stop: 06/09/21 02:14 Ondansetron HCl (Ondansetron Inj 2 Mg/Ml 2 Ml Vial) 4 mg IV Q6H PRN PRN Reason: Nausea Stop: 06/09/21 02:14 Simvastatin (Simvastatin 20 Mg Tab) 20 mg PO HS [facility] Stop: 06/09/21 20:59 Last Admin: 05/11/21 19:35 Dose: 20 mg Documented by: (1) DVT (deep venous thrombosis) Affected thrombotic vein of extremity: tibial Chronicity: acute DVT location: lower extremity Laterality: left Qualified Code(s): I82.442 - Acute embolism and thrombosis of left tibial vein (2) Pulmonary emboli Pulmonary embolism type: multiple subsegmental (without acute cor pulmonale) Qualified Code(s): I26.94 - Multiple subsegmental pulmonary emboli without acute cor pulmonale
[2021-05-12] MEDS: HEPARIN SODIUM/DEXTROSE 25,000 UNITS/500 ML BAG IV SCH (09:43)
[2021-05-12] MEDS: SIMVASTATIN 20 MG TAB PO SCH (20:10)
[2021-05-13] MEDS: HEPARIN SODIUM/DEXTROSE 25,000 UNITS/500 ML BAG IV SCH ×2 (04:15→22:13)
[2021-05-13] MEDS: amLODIPine BESYLATE 5 MG TAB PO SCH (07:38)
[2021-05-13] MEDS: lisinopril 20 MG TAB PO SCH (07:38)
[2021-05-13] MEDS: CLOPIDOGREL BISULFATE 75 MG TAB PO SCH (07:38)
[2021-05-13 08:03] LABS: Hematocrit (blood only) 39.7 % (42-52); Hemoglobin 13.6 g/dL (14.0-18.0); Mean Corpuscular Hemoglobin 31.7 pg (25-34); Mean Corpuscular Hgb Conc 34.3 g/dL (32-36); Mean Corpuscular Volume 92.5 fL (80-100); Mean Platelet Volume 9.2 fL (7.4-10.4); Platelet Count 286 K/uL (130-400); RDW Coefficient of Variation 14.8 % (11.5-14.5); RDW Standard Deviation 49.6 fL (36.4-46.3); Red Blood Count 4.29 M/uL (4.7-6.1)
[2021-05-13 08:23] LABS: Partial Thromboplastin Ratio 2.1
[2021-05-13 08:30] LABS: Partial Thromboplastin Time 54.9 Seconds (21.0-31.0)
[2021-05-13 08:31] LABS: BUN Creatinine Ratio 17.8 (10-20); Calcium 8.6 mg/dl (8.5-10.1); Est GFR (African American) 71.3 ml/min; Est GFR (Non-African American) 61.5 ml/min; Potassium 3.7 mmol/L (3.5-5.1)
--- NOTE | 2021-05-13 17:59 | Hospitalist Progress Note ---
Date of Service May 13, 2021 Assessment & Plan (1) Pulmonary emboli: (2) DVT (deep venous thrombosis): (3) History of CVA (cerebrovascular accident): Plan: Patient is an 80 yr male presents with left lower extremity pain and some chest discomfort and shortness of breath on exertion, found to have PE and DVT. Acute bilateral PE and left lower extremity DVT. H/O IVC filter placement in 2007 for DVT with significant clot burden Unsure why Coumadin was discontinued previously --CTA:Acute pulmonary embolus involving left upper lobe and right upper, middle lower lobes branches of pulmonary artery. Possible pulmonary infarct on the right as detailed above. No right heart strain or main pulmonary artery dilatation is seen. Minimal right pleural effusion. Atherosclerosis. Mild four-chamber cardiomegaly. --Venous Doppler:Deep venous thrombus within the left posterior tibial vein. --ECHO: EF 65 to 70%. No regional wall motion abnormalities noted. Aortic valve sclerosis moderate, without significant aortic valvular stenosis. There is mild tricuspid regurg. The estimated systolic pulmonary pressure 48 mmHg. Small loculated anterior pericardial effusion with mild organization. There are no echocardiographic indications of cardiac tamponade. Grade 1 diastolic dysfunction. --Continue IV heparin while hospitalized Plan to transition to Eliquis tomorrow Abdominal discomfort and diarrhea Resolved H/O CVA in 2007 Continue Plavix and statin. Hypertension On lisinopril, Amlodipine CKD III Cr at baseline Hyperlipidemia On statin. DVT Px: IV heparin. Code Status Full Code Admission and Anticipated Discharge Date Admission Date: May 10, 2021 Subjective Patient is seen and examined at bedside Sitting in chair during my encounter Denies any bleeding issues while on IV heparin No new complaints Denies chest pain, shortness breath, dizziness, nausea, abdominal pain Review of Systems Review of Systems: All systems reviewed & are unremarkable except as noted in Subjective Physical Exam Physical Exam: Physical Exam: Vitals signs as noted above General Appearance:Moderately built and nourished, no apparent distress Head: normocephalic, Atraumatic Eyes: normal inspection, EOMI Neck: supple, Trachea midline Respiratory/Chest: Normal breath sounds, CTA, No accessory muscle use Cardiovascular: S1, S2, No murmur Abdomen/GI:Soft, Non tender, Bowel sounds present Extremities/Musculoskeletal:normal inspection, no edema Neurologic/Psych:AAOX3, grossly no focal neurological deficits, Chronic dysarthria Skin: normal color, warm Results & Data Results & Data ([facility]) Vital Signs (Past 12 Hours) Vital Signs Temp Pulse Resp BP Pulse Ox 05/13/21 15:38 37.2 C 67 19 131/63 95 05/13/21 12:13 37.0 C 65 19 123/69 92 05/13/21 07:53 36.6 C 59 L 18 120/72 91 Laboratory Results Short CBC 05/13/21 Range/Units 07:44 WBC 7.00 (4.8-10.8) K/uL Hgb 13.6 L (14.0-18.0) g/dL Hct 39.7 L (42-52) % Plt Count 286 (130-400) K/uL BMP 05/13/21 07:44 Sodium 140 Potassium 3.7 Chloride 108 H Carbon Dioxide 28 BUN 20 H Creatinine 1.11 Glucose 86 Calcium 8.6 (1) Pulmonary emboli Pulmonary embolism type: multiple subsegmental (without acute cor pulmonale) Qualified Code(s): I26.94 - Multiple subsegmental pulmonary emboli without acute cor pulmonale (2) DVT (deep venous thrombosis) Affected thrombotic vein of extremity: tibial Chronicity: acute DVT location: lower extremity Laterality: left Qualified Code(s): I82.442 - Acute embolism and thrombosis of left tibial vein
[2021-05-13] MEDS: SIMVASTATIN 20 MG TAB PO SCH (19:54)
[2021-05-14 07:11] LABS: Hematocrit (blood only) 36.2 % (42-52); Hemoglobin 12.4 g/dL (14.0-18.0); Mean Corpuscular Hemoglobin 31.4 pg (25-34); Mean Corpuscular Hgb Conc 34.3 g/dL (32-36); Mean Corpuscular Volume 91.6 fL (80-100); Mean Platelet Volume 9.1 fL (7.4-10.4); Platelet Count 245 K/uL (130-400); RDW Coefficient of Variation 14.5 % (11.5-14.5); RDW Standard Deviation 49.4 fL (36.4-46.3); Red Blood Count 3.95 M/uL (4.7-6.1); White Blood Count 6.57 K/uL (4.8-10.8)
[2021-05-14 07:32] LABS: Partial Thromboplastin Ratio 2.3
[2021-05-14 07:35] LABS: Partial Thromboplastin Time 59.6 Seconds (21.0-31.0)
[2021-05-14] MEDS ORDERED: APIXABAN 5 MG TABLET PO SCH (09:00)
[2021-05-14] MEDS: CLOPIDOGREL BISULFATE 75 MG TAB PO SCH (09:04)
[2021-05-14] MEDS: lisinopril 20 MG TAB PO SCH (09:05)
[2021-05-14] MEDS: amLODIPine BESYLATE 5 MG TAB PO SCH (09:05)
--- NOTE | 2021-05-14 14:04 | Hospitalist Progress Note ---
Date of Service May 14, 2021 Assessment & Plan (1) Pulmonary emboli: (2) DVT (deep venous thrombosis): (3) History of CVA (cerebrovascular accident): Plan: Patient is an 80 yr male presents with left lower extremity pain and some chest discomfort and shortness of breath on exertion, found to have PE and DVT. Acute bilateral PE and left lower extremity DVT. H/O IVC filter placement in 2007 for DVT with significant clot burden Unsure why Coumadin was discontinued previously --CTA:Acute pulmonary embolus involving left upper lobe and right upper, middle lower lobes branches of pulmonary artery. Possible pulmonary infarct on the right as detailed above. No right heart strain or main pulmonary artery dilatation is seen. Minimal right pleural effusion. Atherosclerosis. Mild four-chamber cardiomegaly. --Venous Doppler:Deep venous thrombus within the left posterior tibial vein. --ECHO: EF 65 to 70%. No regional wall motion abnormalities noted. Aortic valve sclerosis moderate, without significant aortic valvular stenosis. There is mild tricuspid regurg. The estimated systolic pulmonary pressure 48 mmHg. Small loculated anterior pericardial effusion with mild organization. There are no echocardiographic indications of cardiac tamponade. Grade 1 diastolic dysfunction. --IV heparin transitioned to Eliquis Abdominal discomfort and diarrhea Resolved H/O CVA in 2007 Continue Plavix and statin. Hypertension On lisinopril, Amlodipine CKD III Cr at baseline Hyperlipidemia On statin. DVT Px: Eliquis Code Status Full Code Disposition Case Management to help with discahrge planning Admission and Anticipated Discharge Date Admission Date: May 10, 2021 Subjective Patient is seen and examined at bedside No new complaints Denies bleeding issues Waiting for rehab Denies chest pain, shortness breath, dizziness, nausea, abdominal pain Review of Systems Review of Systems: All systems reviewed & are unremarkable except as noted in Subjective Physical Exam Physical Exam: Physical Exam: Vitals signs as noted above General Appearance:Moderately built and nourished, no apparent distress Head: normocephalic, Atraumatic Eyes: normal inspection, EOMI Neck: supple, Trachea midline Respiratory/Chest: Normal breath sounds, CTA, No accessory muscle use Cardiovascular: S1, S2, No murmur Abdomen/GI:Soft, Non tender, Bowel sounds present Extremities/Musculoskeletal:normal inspection, no edema Neurologic/Psych:AAOX3, grossly no focal neurological deficits, Chronic dysarthria Skin: normal color, warm Results & Data Results & Data ([facility] [place]) Vital Signs (Past 12 Hours) Vital Signs Temp Pulse Pulse Resp BP BP Pulse Ox 05/14/21 11:26 36.9 C 71 19 113/70 98 05/14/21 07:27 36.6 C 59 L 19 121/68 93 05/14/21 07:14 61 05/14/21 02:51 36.6 C 64 18 122/69 92 Laboratory Results Short CBC 05/14/21 Range/Units 07:00 WBC 6.57 (4.8-10.8) K/uL Hgb 12.4 L (14.0-18.0) g/dL Hct 36.2 L (42-52) % Plt Count 245 (130-400) K/uL (1) Pulmonary emboli Pulmonary embolism type: multiple subsegmental (without acute cor pulmonale) Qualified Code(s): I26.94 - Multiple subsegmental pulmonary emboli without acute cor pulmonale (2) DVT (deep venous thrombosis) Affected thrombotic vein of extremity: tibial Chronicity: acute DVT location: lower extremity Laterality: left Qualified Code(s): I82.442 - Acute embolism and thrombosis of left tibial vein
--- NOTE | 2021-05-14 14:55 | Discharge Summary ---
Date of Service May 14, 2021 Admission HPI Per Admitting Provider CHIEF COMPLAINT: Left lower extremity pain and also abdominal discomfort. HISTORY OF PRESENT ILLNESS: This is an 80-year-old male with past medical history significant for hyperlipidemia, history of hypertension, chronic kidney disease stage III, history of right footdrop, history of pulmonary embolism in the past. The patient also had a stroke in 2007. At that time, he was found to have right sided hemiplegia. He stated at this time he was also found to have right lower extremity DVT and also PE. He said he was given some medication to burst his clot in his lungs. He was not sure about being on blood thinners, but he said prior to that he was on aspirin, it was changed to Plavix. Soon he went to rehab and his strength has come back. Now he can ambulate with a cane and also he swallows okay. He is on a regular diet. He lives alone. Daughter comes and checks on him, neighbors help him with food and they check him every day. He says couple of weeks ago, he developed left lower extremity pain. He thought he might sprained his leg while asleep, but then it is not getting better and also the last couple of days he was having some abdominal discomfort, and loose stools.Currently abdominal discomfort resolved. This morning had some loose stools, but now he seems to be getting better. In the ER, he was found to have DVT and PE again, and has been started on IV heparin. Currently, resting comfortably and hemodynamically stable. He says he has some right sided chest pain and while resting it is okay but with taking deep breaths, the pain is more and lately with ambulation he is getting short of breath. Denies any cough, no fever, no chills, no headache, no blurred visions, no earache, no runny nose, no sore throat, no nausea. No blood in the stools or black stools. No hematuria. Normal bladder movements. No swelling in the legs, no clifton Admission Exam Per Admitting Provider PHYSICAL EXAMINATION: GENERAL: The patient is old and frail, not in acute distress. VITAL SIGNS: Temperature 36.9, pulse 70, respiratory rate 16, blood pressure 140/68, oxygen 96% on room air. HEENT: Pupils equal, round and reactive to light. Oral mucosa dry. NECK: No JVD, no neck masses. HEART: S1 and S2 heard. Regular rate and rhythm. No murmur, no gallop. RESPIRATORY SYSTEM: Normal AP diameter. No accessory muscle use. No wheezing, no crackles. ABDOMEN: Soft, bowel sounds are present, nontender, no distention. CENTRAL NERVOUS SYSTEM: Alert and oriented. Speech is clear. Strength 5/5 in all extremities. EXTREMITIES: No edema, no erythema, no tenderness, no swelling noted. Principal Diagnosis Acute bilateral PE Left lower extremity DVT Discharge Data Allergies Allergy/AdvReac Type Severity Reaction Status Date / Time No Known Allergies Allergy Verified 05/09/21 21:27 Consultations 05/09/21 23:26 ED Decision to Admit Stat Ordered Studies 05/09/21 20:46 US venous doppler LE LT Urgent 05/09/21 21:05 CT angio chest PE protocol Urgent Hospital Course (1) Pulmonary emboli: (2) DVT (deep venous thrombosis): (3) History of CVA (cerebrovascular accident): Patient is an 80 yr male presents with left lower extremity pain and some chest discomfort and shortness of breath on exertion, found to have PE and DVT. Acute bilateral PE and left lower extremity DVT. H/O IVC filter placement in 2007 for DVT with significant clot burden Unsure why Coumadin was discontinued previously --CTA:Acute pulmonary embolus involving left upper lobe and right upper, middle lower lobes branches of pulmonary artery. Possible pulmonary infarct on the right as detailed above. No right heart strain or main pulmonary artery dilatation is seen. Minimal right pleural effusion. Atherosclerosis. Mild four-chamber cardiomegaly. --Venous Doppler:Deep venous thrombus within the left posterior tibial vein. --ECHO: EF 65 to 70%. No regional wall motion abnormalities noted. Aortic valve sclerosis moderate, without significant aortic valvular stenosis. There is mild tricuspid regurg. The estimated systolic pulmonary pressure 48 mmHg. Small loculated anterior pericardial effusion with mild organization. There are no echocardiographic indications of cardiac tamponade. Grade 1 diastolic dysfunction. --IV heparin transitioned to Eliquis Abdominal discomfort and diarrhea Resolved H/O CVA in 2007 Continue Plavix and statin. Hypertension On lisinopril, Amlodipine CKD III Cr at baseline Hyperlipidemia On statin. DVT Px: Eliquis Code Status Full Code Disposition Case Management to help with discahrge planning I certify that this patient is under my care and that I, or a physicians photographer assistant working with me, had a face to-face encounter that meets the home health [id number] encounter requirements with this patient. The encounter with the patient was in whole, or in part, for the following medical condition, which is the primary reason for home health care (list medical condition): I certify that, based on my findings, the following services are medically necessary home health services: My clinical findings support the need for the above services because: OT Assess ADL Status and Restore Function w ADLs PT Assessment for Endurance / Balance / Strength Skilled Nsg Assessment Further, I certify that my clinical findings support that this patient is homebound (i.e. absences from home require considerable and taxing effort and are for medical reasons or [facility] or infrequently or of short durat ion when for other reasons) because: Certification for Home Health Services: Based on the above findings, I certify that this patient is confined to the home and needs intermittent intermediate care, physical therapy and/or speech therapy or continues to need occupational therapy. The patient is under my care, and I have initiated the establishment of the plan of care. This patient will be followed by a physician who will periodically review the plan of care. Total Time Total Time Spent Total Time Spent (In Minutes): 43 minutes Discharge Plan Discharge Items Patient Disposition: Home - Home Health Services Reason For Visit: LEG PAIN Discharge Diagnosis: Acute bilateral PE Left lower extremity DVT Activity: Per Instructions section Exercise/Sports: Wait until after follow-up appointment Non-emergency contact: Primary Care Provider Call non-emergency contact if: you have any medication questions, your symptoms worsen, your pain is not controlled, your pain is concerning for you and you have a fever Follow-up/Referrals: Tacho Dorsey MD [Primary Care Provider] - (Date & Time 05/19/2021 10:20 AM Provider Razia Sididqi MD [facility] ) Diet: Heart Healthy Diet Texture: Easy to Chew Addtl Attending Provider Instructions: Follow up with your Primary Care Physician on May 19, 2021 at 10:20 AM Apixaban (Eliquis):Started on 05/14/21 Start taking Apixaban 10mg twice a day for 7 days and then take 5mg twice a day. Duration of Apixaban treatment to be determined by your Primary Care physician Seek immediate medical attention if your symptoms reoccur or worsen Please take all medications as instructed on discharge list below. Please call if you have any questions or problems. You can reach a [facility] hospitalist on duty at [facility] 24 hours a day by calling [phone] Pending Studies at Discharge: No Stand-Alone Forms: My [facility], Smoking Cessation Medications and DC Order Prescriptions: New Eliquis 5 mg tablet 5 mg PO Q12H Qty: 60 RF: 0 Continued lisinopril 20 mg tablet 20 mg PO QAM RF: 0 amlodipine 5 mg tablet 5 mg PO QAM RF: 0 simvastatin 20 mg tablet 20 mg PO HS RF: 0 clopidogrel 75 mg tablet 75 mg PO QAM RF: 0 Discharge Orders: Discharge Order (Routine); Ordered 05/14/21 Ordered By: Meet Pate Admission Data Admit Date/Time: 05/10/21 00:31 Attending Provider: Meet Pate Admit Provider: Connor Figueredo Primary Care Provider: Tacho Dorsey Other Providers: Connor Figueredo ; [facility] ; [facility] ; [facility]
== END 2021-05-14 18:30 | disposition home health service (06) | DRG 299 ==
LOC: ED 20:33 → SUATTDRO 05-10 00:31 → 2N 05-10 00:31

== ENCOUNTER 2023-03-11 17:42 | Inpatient (IN) ==
[2023-03-11] MEDS ORDERED: SODIUM CHLORIDE 0.9% 500 ML IV STA (17:56)
[2023-03-11 18:14] LABS: Hematocrit (blood only) 41.5 % (42.0-52.0); Hemoglobin 14.3 g/dl (14.0-18.0); Mean Corpuscular Hemoglobin 31.6 pg (25.0-34.0); Mean Corpuscular Hgb Conc 34.5 g/dL (32.0-36.0); Mean Corpuscular Volume 91.8 fL (80.0-100.0); Mean Platelet Volume 9.3 fL (9.4-12.4); Platelet Count 195 K/uL (130-400); RDW Coefficient of Variation 14.2 % (11.5-14.5); RDW Standard Deviation 47.8 fL (36.4-46.3); Red Blood Count 4.52 M/uL (4.70-6.10); White Blood Count 16.83 K/ul (4.8-10.8)
[2023-03-11 18:31] LABS: Alanine Aminotransferase 65 U/L (7-52); Albumin Globulin Ratio 1.4 (0.9-2); Albumin Level 3.9 gm/dl (3.4-5.0); Alkaline Phosphatase 139 U/L (34-104); Anion Gap 8 (3-11); Aspartate Aminotransferase 90 U/L (13-39); BUN Creatinine Ratio 20.4 (10-20); Bilirubin,Total 0.9 mg/dl (0.2-1.0); Blood Urea Nitrogen 23 mg/dl (6-23); Calcium 9.1 mg/dl (8.6-10.3); Carbon Dioxide 24 mmol/L (21-32); Chloride 104 mmol/L (98-107); Est GFR (African American) 68.8 ml/min; Est GFR (Non-African American) 59.4 ml/min; Globulin 2.8 gm/dl (2.5-4.0); Glucose 162 mg/dl (70-99(Fasting)); Lipase 7 U/L (11-82); Potassium 4.3 mmol/L (3.5-5.1); Sodium 136 mmol/L (136-145); Total Protein 6.7 gm/dl (6.0-8.3)
--- NOTE | 2023-03-11 18:33 | Emergency Department Note ---
Impression & Plan Nausea, vomiting, and diarrhea, Leukocytosis ED Provider Note INFORMANT: Patient, EMS, and family ED PROVIDER(S): Harjinder Lopez MD CHIEF COMPLAINT: Vomiting and diarrhea PLAN: Disposition: Admitted Condition: Good Outpatient prescription management: none Referral: None MEDICAL DECISION MAKING: Patient presented because of vomiting and diarrhea. Family notes the patient was so weak that they had to call EMS because they could not get him up. He appeared dehydrated. He did receive IV fluids prehospital and Zofran. His vomiting did stop. The patient was given additional IV fluids here. Blood work revealed a leukocytosis. His chemistry panel did reveal some dehydration. Mild hyperglycemia present. CT imaging was done of the abdomen pelvis and this did show an enteritis. Patient's ECG did not reveal any acute ischemia. Patient was requiring some mild supplemental oxygen and a chest x-ray did not reveal any acute findings. Patient is anticoagulated. Further management in the hospital will be necessary given his dehydration and weakness. Consultation was made with the [facility], Dr. Figueredo. Patient was evaluated in the ER and admitted for further management. Discussed with printing manager After review of the information above and other included data, I feel the patient requires admission. Triage Nursing notes reviewed and agree them. Vital Signs: reviewed and remarkable for no significant abnormalities Prior /Outside records reviewed: none Differential diagnosis: Etiologies such as gastroenteritis, food borne illness, infections, appendicitis, diverticulitis, inflammatory bowel disease, GI bleed, biliary pathology, as well as others were entertained. Diagnostics, as interpreted by me: ECG: Twelve-lead ECG reveals a sinus rhythm with PVCs at [address] elevation or Cardiac Monitoring: Cardiac monitoring ordered by me: The patient was placed on continuous cardiac monitoring and observed. It revealed a normal sinus rhythm at 75 bpm. Medical decision rules: none Imaging studies: CT scan reveals presence of enteritis. No obstruction. Mild under distention of the distal colon and rectum. HPI: The patient is a 82year old male who presents to the Emergency Room with complaints of vomiting. This started yesterday and is persisting throughout the day. The patient also notes the following associated symptoms, nausea and diarrhea. Patient had some transient abdominal pain as well. The patient has been given a fluid bolus by EMS as well as Zofran relieving factors. Current pain is rated as 0/10. EMS did note that the patient's O2 saturation was in the 70s but responded very well to nasal cannula oxygen. On arrival here his O2 saturations were in the low 90s on room air. Pt denies LOC, headache, fevers, chills, diaphoresis, visual changes, neck pain, chest pain, breathing difficulties, generalized weakness, back pain, melena, hematochezia, urinary symptoms, numbness, lymphadenopathy, rash, or other complaints. PAST MEDICAL HISTORY: See Below, stroke, hypertension, DVT PAST SURGICAL HISTORY: See Below, SOCIAL HISTORY: See Below, retired HOME MEDICATIONS: See Below ALLERGIES: See Below VITALS: See Below PHYSICAL EXAMINATION: GENERAL: Awake, alert, uncomfortable-appearing, in no distress HENT: Normocephalic, atraumatic. Oropharynx unremarkable. EYES: Normal conjunctiva. Sclera non-icteric. NECK: Inspection normal. Non-tender. Supple. No nuchal rigidity. FROM. No masses. RESPIRATORY: Clear to auscultation. No wheezes. No rales. Normal respiratory effort. CARDIAC: Normal rate. Normal rhythm. No murmurs. No rubs. Extremities warm and well perfused. Pulses equal. No JVD. GI: Soft, non-distended. No tenderness to palpation. No rebound or guarding. No masses. RECTAL: Deferred. MUSCULOSKELETAL: Atraumatic. Chest examination reveals no tenderness. The back is symmetrical on inspection without obvious abnormality. There is no CVA tenderness to palpation. No joint edema. LOWER EXTREMITIES: Calves are equal size bilaterally and non-tender. No edema. No discoloration. NEURO: Normal sensorium. Speech slurred which EMS stated was baseline for the patient. Right-sided weakness SKIN: No rash or jaundice noted. Past Med/Surg History Medical History History of CVA (cerebrovascular accident) Hypertension Pulmonary embolism TIA (transient ischemic attack) Surgical History No pertinent past surgical history Family History Other Family history non-contributory Social History Smoking Status: Never smoker Second Hand Exposure: No; Do You Dip or Chew Tobacco: No; Hx Alcohol Use: No Hx Substance Use: No Preferred Language: Albanian 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 Ability: Effective Casing In Line Feeder Required: No Beliefs That Will Affect Care: None Current Living Situation: Alone Current Living Situation Comment: NO STAIRS, WITH CAT Feels Safe at Home: Yes Assistive Devices: Walker Allergies Allergies Allergy/AdvReac Type Severity Reaction Status Date / Time No Known Allergies Allergy Verified 03/11/23 19:42 Home Meds Home Medications Medication Instructions Recorded Confirmed amlodipine 5 mg tablet 5 mg PO QAM 10/10/19 03/11/23 lisinopril 20 mg tablet 20 mg PO QAM 10/10/19 03/11/23 simvastatin 20 mg tablet 20 mg PO HS 10/10/19 03/11/23 clopidogrel 75 mg tablet 75 mg PO QAM 12/14/19 03/11/23 Previous Rx's Medication Instructions Recorded apixaban 5 mg tablet (Eliquis) 5 mg PO Q12H #60 tabs 05/12/21 Results & Data (ED) Vital Signs Vital Signs - 24 hr 03/11/23 17:55 03/11/23 17:56 03/11/23 17:56 Temperature 37.2 C Temperature Source Oral Pulse Rate 80 83 Pulse Rate [Apical] 83 Pulse Rhythm Regular Pulse Rhythm [Apical] Regular Pulse Strength [Apical] Normal Respiratory Rate 24 24 Respiratory Effort / Characteristics Non-Labored Respiratory Depth Normal Respiratory Pattern Regular Blood Pressure [Right Arm] 159/93 H Blood Pressure Mean [Right Arm] 115 Blood Pressure Position [Right Arm] Lying Pulse Oximetry 95 95 Oxygen Delivery Method Room Air Room Air Oxygen Flow Rate Oxygen Flow Rate - Titration Pulse Oximetry Post Tiitration 03/11/23 19:02 03/11/23 19:32 03/11/23 21:00 Temperature Temperature Source Pulse Rate Pulse Rate [Apical] 68 69 Pulse Rhythm Pulse Rhythm [Apical] Pulse Strength [Apical] Respiratory Rate 18 18 Respiratory Effort / Characteristics Respiratory Depth Respiratory Pattern Blood Pressure [Right Arm] 142/63 H 101/44 L Blood Pressure Mean [Right Arm] 89 63 Blood Pressure Position [Right Arm] Pulse Oximetry 91 87 L 93 Oxygen Delivery Method Room Air Nasal Cannula Nasal Cannula Oxygen Flow Rate 0 2 Oxygen Flow Rate - Titration 2 Pulse Oximetry Post Tiitration 93 03/11/23 21:30 Temperature Temperature Source Pulse Rate Pulse Rate [Apical] 75 Pulse Rhythm Pulse Rhythm [Apical] Pulse Strength [Apical] Respiratory Rate 18 Respiratory Effort / Characteristics Respiratory Depth Respiratory Pattern Blood Pressure [Right Arm] 107/55 L Blood Pressure Mean [Right Arm] 72 Blood Pressure Position [Right Arm] Pulse Oximetry 95 Oxygen Delivery Method Nasal Cannula Oxygen Flow Rate 2 Oxygen Flow Rate - Titration Pulse Oximetry Post Tiitration Laboratory Data 03/11/23 18:01 03/11/23 18:01 Lab Results 03/11/23 03/11/23 03/11/23 Range/Units 18:01 18:01 19:30 WBC 16.83 H (4.8-10.8) K/ul RBC 4.52 L (4.70-6.10) M/uL Hgb 14.3 (14.0-18.0) g/dl Hct 41.5 L (42.0-52.0) % MCV 91.8 (80.0-100.0) fL MCH 31.6 (25.0-34.0) pg MCHC 34.5 (32.0-36.0) g/dL RDW Std Deviation 47.8 H (36.4-46.3) fL RDW Coeff of Renan 14.2 (11.5-14.5) % Plt Count 195 (130-400) K/uL MPV 9.3 L (9.4-12.4) fL Immature Gran % (Auto) 0.5 % Neut % (Auto) 91.4 % Lymph % (Auto) 1.8 % Benzie % (Auto) 6.1 % Eos % (Auto) 0.0 % Baso % (Auto) 0.2 % Neut # (Auto) 15.36 H (1.40-6.50) K/uL Lymph # (Auto) 0.31 L (1.2-3.4) K/uL Benzie # (Auto) 1.03 H (0.11-0.59) K/uL Eos # (Auto) 0.00 (0-0.50) K/uL Baso # (Auto) 0.04 (0-0.2) K/uL Immature Gran # (Auto) 0.09 (0.01-0.20) K/uL Sodium 136 (136-145) mmol/L Potassium 4.3 (3.5-5.1) mmol/L Chloride 104 (98-107) mmol/L Carbon Dioxide 24 (21-32) mmol/L Anion Gap 8 (3-11) BUN 23 (6-23) mg/dl Creatinine 1.13 (0.6-1.4) mg/dl Est Cr Clr Drug Dosing Not Reportable Est GFR ( Amer) 68.8 ml/min Est GFR (Non-Af Amer) 59.4 ml/min BUN/Creatinine Ratio 20.4 H (10-20) Glucose 162 H (70-99(Fasting)) mg/dl Calcium 9.1 (8.6-10.3) mg/dl Total Bilirubin 0.9 (0.2-1.0) mg/dl AST 90 H (13-39) U/L ALT 65 H (7-52) U/L Alkaline Phosphatase 139 H (34-104) U/L Troponin I High Sens 9.4 (0-20) pg/ml Total Protein 6.7 (6.0-8.3) gm/dl Albumin 3.9 (3.4-5.0) gm/dl Globulin 2.8 (2.5-4.0) gm/dl Albumin/Globulin Ratio 1.4 (0.9-2) Lipase 7 L (11-82) U/L Urine Color Dark Yellow Urine Appearance Clear (Clear) Urine pH 5.0 (4.5-7.5) Ur Specific [place] 1.033 H (1.000-1.030) Urine Protein 2+ H (Negative) Urine Glucose (UA) 1+ H (Negative) Urine Ketones 1+ H (Negative) Urine Blood 3+ H (Negative) Urine Nitrite Negative (Negative) Urine Bilirubin Negative (Negative) Urine Urobilinogen Negative (Negative) Ur Leukocyte Esterase Negative (Negative) Urine WBC (Auto) 5-10 H (0-5) /hpf Urine RBC (Auto) 10-30 H (0-4) /hpf U Hyaline Cast (Auto) 10-30 H (0-5) /lpf U Epithel Cells (Auto) 5-10 H (0-5) /lpf Urine Bacteria (Auto) Negative (Negative) SARS-CoV-2, RNA, NAAT (NEGATIVE) 03/11/23 Range/Units Unknown WBC (4.8-10.8) K/ul RBC (4.70-6.10) M/uL Hgb (14.0-18.0) g/dl Hct (42.0-52.0) % MCV (80.0-100.0) fL MCH (25.0-34.0) pg MCHC (32.0-36.0) g/dL RDW Std Deviation (36.4-46.3) fL RDW Coeff of Renan (11.5-14.5) % Plt Count (130-400) K/uL MPV (9.4-12.4) fL Immature Gran % (Auto) % Neut % (Auto) % Lymph % (Auto) % Benzie % (Auto) % Eos % (Auto) % Baso % (Auto) % Neut # (Auto) (1.40-6.50) K/uL Lymph # (Auto) (1.2-3.4) K/uL Benzie # (Auto) (0.11-0.59) K/uL Eos # (Auto) (0-0.50) K/uL Baso # (Auto) (0-0.2) K/uL Immature Gran # (Auto) (0.01-0.20) K/uL Sodium (136-145) mmol/L Potassium (3.5-5.1) mmol/L Chloride (98-107) mmol/L Carbon Dioxide (21-32) mmol/L Anion Gap (3-11) BUN (6-23) mg/dl Creatinine (0.6-1.4) mg/dl Est Cr Clr Drug Dosing Est GFR ( Amer) ml/min Est GFR (Non-Af Amer) ml/min BUN/Creatinine Ratio (10-20) Glucose (70-99(Fasting)) mg/dl Calcium (8.6-10.3) mg/dl Total Bilirubin (0.2-1.0) mg/dl AST (13-39) U/L ALT (7-52) U/L Alkaline Phosphatase (34-104) U/L Troponin I High Sens (0-20) pg/ml Total Protein (6.0-8.3) gm/dl Albumin (3.4-5.0) gm/dl Globulin (2.5-4.0) gm/dl Albumin/Globulin Ratio (0.9-2) Lipase (11-82) U/L Urine Color Urine Appearance (Clear) Urine pH (4.5-7.5) Ur Specific [place] (1.000-1.030) Urine Protein (Negative) Urine Glucose (UA) (Negative) Urine Ketones (Negative) Urine Blood (Negative) Urine Nitrite (Negative) Urine Bilirubin (Negative) Urine Urobilinogen (Negative) Ur Leukocyte Esterase (Negative) Urine WBC (Auto) (0-5) /hpf Urine RBC (Auto) (0-4) /hpf U Hyaline Cast (Auto) (0-5) /lpf U Epithel Cells (Auto) (0-5) /lpf Urine Bacteria (Auto) (Negative) SARS-CoV-2, RNA, NAAT NEGATIVE (NEGATIVE) Administered Medications Discontinued Medications Sodium Chloride (Nss) 500 mls @ 999 mls/hr IV .Q31M STA Stop: 03/11/23 18:26 Last Infusion: 03/11/23 19:07 Dose: 0 mls/hr Documented By: Admin: 03/11/23 18:27 Dose: 999 mls/hr Documented By: RSL Imaging Data Radiologist's Impression: Abdomen/Pelvis CT 03/11/23 17:56 Exam(s): CT ABDOMEN + PELVIS Without Contrast EXAM: CT Abdomen and Pelvis Without Intravenous Contrast CLINICAL HISTORY: Reason for exam: vomiting, abd pain. TECHNIQUE: Axial computed tomography images of the abdomen and pelvis without intravenous contrast. CTDI is 16.6 mGy and DLP is 844.01 mGy-cm. Automated exposure control was utilized for the study. A dose lowering technique was utilized adhering to the principles of ALARA. COMPARISON: CT abdomen/pelvis on 08/01/2008 FINDINGS: Lung bases: Dependent atelectasis bilaterally. Heart: Trace pericardial fluid. Mild cardiomegaly. Coronary artery and aortic calcifications. ABDOMEN: Liver: Small hypodensities in the liver are too small to definitively characterize. Gallbladder and bile ducts: Unremarkable. No calcified stones. No ductal dilation. Pancreas: Unremarkable. No ductal dilation. Spleen: Unremarkable. No splenomegaly. Adrenals: Nonspecific mild thickening of the left adrenal gland. Kidneys and ureters: Small left renal cyst. No hydronephrosis or stone. Stomach and bowel: Fluid and gas-filled small bowel loops could represent enteritis in the appropriate clinical setting. Wall thickening of the rectum may be secondary to underdistention. Proctitis or neoplasm cannot be excluded. Evaluation of the stomach is limited by underdistention. PELVIS: Appendix: Normal appendix. Bladder: Unremarkable. No stones. Reproductive: Mild prostatomegaly. ABDOMEN and PELVIS: Intraperitoneal space: Unremarkable. No free air. No significant fluid collection. Bones/joints: Scoliosis. Degenerative changes of the spine. No acute fracture. No dislocation. Soft tissues: Unremarkable. Vasculature: Atherosclerotic changes of the vasculature. No aortic aneurysm. IVC filter in place. Lymph nodes: Unremarkable. No enlarged lymph nodes. IMPRESSION: 1. Fluid and gas-filled small bowel loops could represent enteritis in the appropriate clinical setting. 2. Wall thickening of the rectum may be secondary to underdistention. Proctitis or neoplasm cannot be excluded. 3. Mild prostatomegaly. Electronically signed by: Ray Watkins M.D. 03/11/23 19:24 PM Chest X-Ray 03/11/23 18:33 XR chest 1V portable CLINICAL HISTORY: vomiting, hypoxia TECHNIQUE: Single frontal radiograph of the chest was obtained. Comparison: Comparison is made to chest radiograph 05/09/2021 FINDINGS: No lines and tubes are seen. Cardiomegaly is noted. The aortic arch is calcified. Previous seen noted right midlung airspace opacity is less conspicuous on today's exam. There is suggestion of interstitial thickening in the lungs. No evidence of pleural effusion or pneumothorax. IMPRESSION: No evidence of acute abnormalities. ACT 112: Negative or not required by law. Electronically signed by: Dayron Bonilla M.D. 03/11/2023 7:24 PM Discharge Plan Visit Data Chief Complaint: Vomiting Stated Complaint: nausea,vomiting ED Provider: Harjinder Lopez Discharge Problem: Nausea, vomiting, and diarrhea, Leukocytosis Forms Stand Alone Forms: [facility] [employer] Prescriptions Prescriptions: No Action lisinopril 20 mg tablet 20 mg PO QAM amlodipine 5 mg tablet 5 mg PO QAM simvastatin 20 mg tablet 20 mg PO HS clopidogrel 75 mg tablet 75 mg PO QAM Eliquis 5 mg tablet 5 mg PO Q12H Qty: 60 0RF Referrals Referrals: Tacho Dorsey MD [Primary Care Provider] -
[2023-03-11 18:36] LABS: Troponin I High Sensitivity 9.4 pg/ml (0-20)
[2023-03-11 18:42] LABS: Basophils # (auto) 0.04 K/uL (0-0.2); Basophils % (auto) 0.2 %; Immature Granulocytes # (auto) 0.09 K/uL (0.01-0.20); Immature Granulocytes % (auto) 0.5 %; Lymphocytes # (auto) 0.31 K/uL (1.2-3.4); Lymphocytes % (auto) 1.8 %; Monocytes # (auto) 1.03 K/uL (0.11-0.59); Monocytes % (auto) 6.1 %; Neutrophils # (auto) 15.36 K/uL (1.40-6.50); Neutrophils % (auto) 91.4 %
--- NOTE | 2023-03-11 19:25 | CT Scan Report ---
Exam(s): CT ABDOMEN + PELVIS Without Contrast EXAM: CT Abdomen and Pelvis Without Intravenous Contrast CLINICAL HISTORY: Reason for exam: vomiting, abd pain. TECHNIQUE: Axial computed tomography images of the abdomen and pelvis without intravenous contrast. CTDI is 16.6 mGy and DLP is 844.01 mGy-cm. Automated exposure control was utilized for the study. A dose lowering technique was utilized adhering to the principles of ALARA. COMPARISON: CT abdomen/pelvis on 08/01/2008 FINDINGS: Lung bases: Dependent atelectasis bilaterally. Heart: Trace pericardial fluid. Mild cardiomegaly. Coronary artery and aortic calcifications. ABDOMEN: Liver: Small hypodensities in the liver are too small to definitively characterize. Gallbladder and bile ducts: Unremarkable. No calcified stones. No ductal dilation. Pancreas: Unremarkable. No ductal dilation. Spleen: Unremarkable. No splenomegaly. Adrenals: Nonspecific mild thickening of the left adrenal gland. Kidneys and ureters: Small left renal cyst. No hydronephrosis or stone. Stomach and bowel: Fluid and gas-filled small bowel loops could represent enteritis in the appropriate clinical setting. Wall thickening of the rectum may be secondary to underdistention. Proctitis or neoplasm cannot be excluded. Evaluation of the stomach is limited by underdistention. PELVIS: Appendix: Normal appendix. Bladder: Unremarkable. No stones. Reproductive: Mild prostatomegaly. ABDOMEN and PELVIS: Intraperitoneal space: Unremarkable. No free air. No significant fluid collection. Bones/joints: Scoliosis. Degenerative changes of the spine. No acute fracture. No dislocation. Soft tissues: Unremarkable. Vasculature: Atherosclerotic changes of the vasculature. No aortic aneurysm. IVC filter in place. Lymph nodes: Unremarkable. No enlarged lymph nodes. IMPRESSION: 1. Fluid and gas-filled small bowel loops could represent enteritis in the appropriate clinical setting. 2. Wall thickening of the rectum may be secondary to underdistention. Proctitis or neoplasm cannot be excluded. 3. Mild prostatomegaly. Electronically signed by: Ray Watkins M.D. 03/11/23 19:24 PM
--- NOTE | 2023-03-11 19:27 | XRay Report ---
XR chest 1V portable CLINICAL HISTORY: vomiting, hypoxia TECHNIQUE: Single frontal radiograph of the chest was obtained. Comparison: Comparison is made to chest radiograph 05/09/2021 FINDINGS: No lines and tubes are seen. Cardiomegaly is noted. The aortic arch is calcified. Previous seen noted right midlung airspace opacity is less conspicuous on today's exam. There is suggestion of interstit ial thickening in the lungs. No evidence of pleural effusion or pneumothorax. IMPRESSION: No evidence of acute abnormalities. ACT 112: Negative or not required by law. Electronically signed by: Dayron Bonilla M.D. 03/11/2023 7:24 PM
[2023-03-11 20:12] LABS: Appearance Urine Clear (Clear); Bacteria Urine Automated Negative (Negative); Bilirubin Urine Negative (Negative); Blood Urine 3+ (Negative); Color Urine Dark Yellow; Glucose Urine UA 1+ (Negative); Ketones Urine 1+ (Negative); Leukocyte Esterase Urine Negative (Negative); Nitrite Urine Negative (Negative); Protein Urine 2+ (Negative); Specific Gravity Urine 1.033 (1.000-1.030); Urobilinogen Urine Negative (Negative)
--- NOTE | 2023-03-11 22:06 | History and Physical Report ---
DATE OF ADMISSION: 03/11/2023. CHIEF COMPLAINT: Nausea, vomiting, diarrhea, hypoxia. 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 Lives at home with her daughter. Was brought in because of vomiting, seems started yesterday and was persistent throughout the day and also nausea and diarrhea and abdominal pain. Currently, the patient says his nausea, abdominal pain, and diarrhea improved. For EMS oxygen saturation 70s and on nasal cannula saturating fine, speaking, seems comfortable, able to understand questions, able to answer questions appropriately. Denies any chest pain. Denies shortness of breath. Says once in a while he gets dry cough. Denies any headache. Had back pain, but that got resolved now. Vision is okay. No sore throat, no runny nose. Says he swallows okay currently. Normal bladder movements. ALLERGIES: No known drug allergies. PAST MEDICAL HISTORY: As mentioned above. PAST SURGICAL HISTORY: Colorectal cancer screen, seems not at risk though. MEDICATIONS: The patient is on amlodipine 5 mg p.o. daily, Eliquis 5 mg p.o. b.i.d., Plavix 75 mg p.o. daily, lisinopril 20 mg p.o. daily, simvastatin 20 mg p.o. at bedtime. FAMILY HISTORY: No family history on file. SOCIAL HISTORY: Lives with daughter. No smoking, no alcohol, no drug use. REVIEW OF SYSTEMS: As per HPI. Rest of review of systems is negative. PHYSICAL EXAMINATION: GENERAL: The patient is of moderate build, not in acute distress, but is speaking in mumbling words. VITAL SIGNS: Temperature 37.2, pulse 60, respiratory rate 18, blood pressure 140/60, oxygen 91% on nasal cannula. HEENT: Pupils equal, round and reactive to light. Oral mucosa somewhat dry. NECK: No JVD, no neck masses. CARDIOVASCULAR: S1 and S2 heard. Regular rate and rhythm. No murmur, no gallop. RESPIRATORY SYSTEM: Normal AP diameter. No accessory muscle use. No wheezing, no crackles. ABDOMEN: Soft, bowel sounds present, nontender, no distention. CENTRAL NERVOUS SYSTEM: Alert and oriented, speaking in low volume and mumbling. Insight is okay. Obeys simple commands. Power 5/5 in all extremities except right lower extremity is 3/5. EXTREMITIES: No edema, no erythema. LABORATORY DATA: WBC 16.8, hemoglobin 14.3, hematocrit 41.5, platelets 195. Sodium 136, potassium 4.3, chloride 104, bicarbonate 24, BUN 20, creatinine 1.1, serum glucose 162, calcium 9.1, total bilirubin 0.9, AST 19, ALT 65, alkaline phosphatase 139. Troponin I high sensitivity 9.4, lipase 70. Urinalysis, +2 protein, +1 ketones. SARS-COVID rapid test negative. IMAGING DATA: Chest x-ray, no evidence of acute abnormalities. CT abdomen and pelvis with IV contrast, enteritis, wall thickening of the rectum secondary to underdistention, proctitis or neoplasm cannot be excluded. EKG: Sinus rhythm with occasional PVCs at a rate of 71, no acute ST changes seen. ASSESSMENT AND PLAN: This is an 82-year-old male who presents with nausea and diarrhea and also found to have hypoxia. 1. Nausea, vomiting, diarrhea, most likely gastroenteritis on the CAT scan with questionable rectal wall thickening. We will get a GI consult in a.m.Supportive care. 2. Hypoxia, possible aspiration. The patient has nausea, vomiting. Chest x- ray looks okay, but requiring oxygen. We will get a CT chest. Currently n.p.o. The patient also has a history of stroke in the past. We will get speech evaluation. Empirically on Unasyn. Follow the CAT scan. Continue oxygen supplementation for now. 3. History of cerebrovascular accident. On Eliquis, Plavix, statin, continue. 4. Chronic kidney disease stage III. Presently creatinine of 1.1. We will follow the labs. 5. History of pulmonary embolism and deep venous thrombosis, status post inferior vena cava filter, on Eliquis 6. Hyperlipidemia, on statin. 7. Hypertension, on amlodipine and lisinopril. We will monitor the blood pressure. 8. Deep venous thrombosis prophylaxis, on Eliquis. DISPOSITION: Ad[facility] to [facility]. PT/OT prior to discharge. Social service to help with discharge planning. Level 1 full code as per my discussion with the patient. Job ID: [id number] MTDD
[2023-03-11] MEDS ORDERED: NITROGLYCERIN SL 0.4 MG/TAB TAB SL PRN (23:53)
[2023-03-11] MEDS ORDERED: ONDANSETRON INJ 2 MG/ML 2 ML VIAL IV PRN (23:53)
[2023-03-11] MEDS ORDERED: LEVALBUTEROL 1.25 MG/3 ML NEB NEB PRN (23:53)
[2023-03-12] MEDS ORDERED: AMPICILLIN/SULBACTAM SOD 3,000 MG in 0.9 % SODIUM CHLORIDE 100 ML IV ONE (00:15)
[2023-03-12] MEDS ORDERED: Patient's HEIGHT &/or WEIGHT Needed SCH (00:15)
[2023-03-12] MEDS: SIMVASTATIN 20 MG TAB PO SCH ×2 (01:08→20:32)
[2023-03-12] MEDS: APIXABAN 5 MG TABLET PO SCH ×3 (01:08→20:32)
--- NOTE | 2023-03-12 01:08 | CT Scan Report ---
Exam(s): CT CHEST Without Contrast EXAM: CT Chest Without Intravenous Contrast CLINICAL HISTORY: Reason for exam: hypoxia, n/v, aspiration?. TECHNIQUE: Axial computed tomography images of the chest without intravenous contrast. CTDI is 8.72 mGy and DLP is 317.03 mGy-cm. Automated exposure control was utilized for the study. A dose lowering technique was utilized adhering to the principles of ALARA. COMPARISON: Dated 05/09/21 FINDINGS: Lungs: There is mild bibasilar pleural scarring. There is some scattered atelectasis. Pleural space: See above. Heart: There is a trace pericardial effusion. There is mild cardiomegaly. There are coronary vascular calcifications. Bones/joints: There are degenerative changes of the thoracic spine. No acute fracture. No dislocation. Soft tissues: Unremarkable. Vasculature: See above. Lymph nodes: Unremarkable. No enlarged lymph nodes. IMPRESSION: No acute findings in the chest. Electronically signed by: Ernesto Francis MD 03/12/23 01:07 AM
[2023-03-12] MEDS: AMPICILLIN/SULBACTAM SOD 3,000 MG in 0.9 % SODIUM CHLORIDE 100 ML IV SCH ×5 (01:09→23:51)
[2023-03-12] MEDS: D5W AND 1/2NSS 1,000 ML IV SCH ×3 (01:11→20:32)
[2023-03-12 06:17] LABS: Basophils # (auto) 0.03 K/uL (0-0.2); Basophils % (auto) 0.2 %; Eosinophils # (auto) 0.01 K/uL (0-0.50); Eosinophils % (auto) 0.1 %; Hematocrit (blood only) 34.6 % (42.0-52.0); Hemoglobin 11.8 g/dl (14.0-18.0); Immature Granulocytes # (auto) 0.09 K/uL (0.01-0.20); Immature Granulocytes % (auto) 0.6 %; Lymphocytes # (auto) 0.82 K/uL (1.2-3.4); Lymphocytes % (auto) 5.2 %; Mean Corpuscular Hemoglobin 31.2 pg (25.0-34.0); Mean Corpuscular Hgb Conc 34.1 g/dL (32.0-36.0); Mean Corpuscular Volume 91.5 fL (80.0-100.0); Mean Platelet Volume 9.8 fL (9.4-12.4); Monocytes # (auto) 1.52 K/uL (0.11-0.59); Monocytes % (auto) 9.6 %; Neutrophils # (auto) 13.39 K/uL (1.40-6.50); Neutrophils % (auto) 84.3 %; Platelet Count 199 K/uL (130-400); RDW Coefficient of Variation 14.5 % (11.5-14.5); RDW Standard Deviation 48.9 fL (36.4-46.3); Red Blood Count 3.78 M/uL (4.70-6.10); White Blood Count 15.86 K/ul (4.8-10.8)
[2023-03-12 06:40] LABS: Calcium 8.5 mg/dl (8.6-10.3); Magnesium 1.9 mg/dl (1.7-2.4); Potassium 3.9 mmol/L (3.5-5.1)
[2023-03-12 06:46] LABS: BUN Creatinine Ratio 21.9 (10-20); Creatinine Clr Calc Pharmacy 52.3 ml/min; Est GFR (African American) 75.2 ml/min; Est GFR (Non-African American) 64.9 ml/min
--- NOTE | 2023-03-12 08:00 | Hospitalist Progress Note ---
Date of Service March 12, 2023 Assessment & Plan (1) Nausea, vomiting, and diarrhea: (2) Leukocytosis: Plan: This is an 82-year-old male who presents with nausea and diarrhea and also found to have hypoxia. 1. Nausea, vomiting, diarrhea, most likely gastroenteritis on the CAT scan with questionable rectal wall thickening. WBC 17K Stool pcr ordered Supportive care. cont. abx for now as started on admission. GI consulted - suspect he had an acute gastroenteritis and he seems to be getting over it. He has had a drop in his h/h but I suspect a lot of that due to rehydration. He denies passing blood. CT suggests enteritis with fluid filled loops of bowel but also shows "thickened rectum". This could be due to proctitis or underdistension. It could also be due to malignancy. He has no prior CT on his chart to tell if this is an acute issue or not. He doesn't remember when his last colonoscopy was. Colonoscopy could be done but antiplatelet drugs would need to be held. I would not do this under the acute settings as determining if he has chronic proctitis (unlikely) would be difficult versus comparing to acute proctitis. Decision about colonoscopy could be done as an outpatient. I will follow. Would advance diet. Diet advanced 2. Hypoxia, possible aspiration. The patient w/ nausea, vomiting. Chest x-ray looks okay, but requiring oxygen. CT chest obtained and negative. Currently on RA and saturating 95% - patient also has a history of stroke in the past. We will obtain speech evaluation. Empirically started on Unasyn. 3. History of cerebrovascular accident. On Eliquis, Plavix, statin, continue. 4. Chronic kidney disease stage III. Presently creatinine of 1.1. We will follow the labs. 5. History of pulmonary embolism and deep venous thrombosis, status post inferior vena cava filter, on Eliquis 6. Hyperlipidemia, on statin. 7. Hypertension, on amlodipine and lisinopril. We will monitor the blood pressure. DVT prophylaxis, on Eliquis. DISPOSITION: med tele. PT/OT prior to discharge. Admission and Anticipated Discharge Date Admission Date: March 11, 2023 Subjective Pt seen in follow up of nausea vomiting, hypoxia -enteritis, possible proctitis/neoplasm Patient is currently sitting up in bed, in no acute distress, currently on room air He is awake alert oriented, able to answer simple questions appropriately Patient is always present at the bedside and provides history Patient currently denies any chest pain shortness of breath, fevers chills, denies abdominal pain Currently no nausea Patient seen by GI Review of Systems Review of Systems: All systems reviewed & are unremarkable except as noted in Subjective Physical Exam Physical Exam: GENERAL: elderly M not in acute distress HEENT: NC/AT. Pupils equal, round and reactive to light. Oral mucosa somewhat dry. NECK: No JVD, no neck masses. CARDIOVASCULAR: S1 and S2 heard. Regular rate and rhythm. No murmur, no gallop. RESPIRATORY: Normal AP diameter. No accessory muscle use. No wheezing, no crackles. ABDOMEN: Soft, bowel sounds present, nontender, no distention. NEURO: Alert and oriented, speaking in low volume and somewhat mumbling. Insight is okay. Obeys simple commands. Power 5/5 in all extremities except right lower extremity is 3/5. EXTREMITIES: No edema, no erythema. Results & Data Results & Data Vital Signs (Past 12 Hours) Vital Signs Temp Pulse Pulse Pulse Resp BP Pulse Ox 03/12/23 04:37 37.2 C 63 63 H 105/61 96 03/11/23 23:53 62 03/11/23 22:30 37.0 C 75 18 145/71 H 94 03/11/23 23:53 03/11/23 23:53 37.0 C 75 18 145/71 H 94 03/11/23 21:30 75 18 107/55 L 95 03/11/23 21:00 69 18 101/44 L 93 O2 Del Method O2 Flow Rate 03/12/23 04:37 Nasal Cannula 2 03/11/23 23:53 03/11/23 22:30 Nasal Cannula 2 03/11/23 23:53 Room Air 03/11/23 23:53 Nasal Cannula 03/11/23 21:30 Nasal Cannula 2 03/11/23 21:00 Nasal Cannula 2 Laboratory Results 03/12/23 03/12/23 03/11/23 Range/Units 05:48 05:48 Unknown WBC 15.86 H (4.8-10.8) K/ul RBC 3.78 L (4.70-6.10) M/uL Hgb 11.8 L (14.0-18.0) g/dl Hct 34.6 L (42.0-52.0) % MCV 91.5 (80.0-100.0) fL MCH 31.2 (25.0-34.0) pg MCHC 34.1 (32.0-36.0) g/dL RDW Std Deviation 48.9 H (36.4-46.3) fL RDW Coeff of Renan 14.5 (11.5-14.5) % Plt Count 199 (130-400) K/uL MPV 9.8 (9.4-12.4) fL Immature Gran % (Auto) 0.6 % Neut % (Auto) 84.3 % Lymph % (Auto) 5.2 % [place] % (Auto) 9.6 % Eos % (Auto) 0.1 % Baso % (Auto) 0.2 % Neut # (Auto) 13.39 H (1.40-6.50) K/uL Lymph # (Auto) 0.82 L (1.2-3.4) K/uL [place] # (Auto) 1.52 H (0.11-0.59) K/uL Eos # (Auto) 0.01 (0-0.50) K/uL Baso # (Auto) 0.03 (0-0.2) K/uL Immature Gran # (Auto) 0.09 (0.01-0.20) K/uL Sodium 137 (136-145) mmol/L Potassium 3.9 (3.5-5.1) mmol/L Chloride 106 (98-107) mmol/L Carbon Dioxide 27 (21-32) mmol/L Anion Gap 4 (3-11) BUN 23 (6-23) mg/dl Creatinine 1.05 (0.6-1.4) mg/dl Est Cr Clr Drug Dosing 52.3 Est GFR ( Amer) 75.2 ml/min Est GFR (Non-Af Amer) 64.9 ml/min BUN/Creatinine Ratio 21.9 H (10-20) Glucose 127 H (70-99(Fasting)) mg/dl Calcium 8.5 L (8.6-10.3) mg/dl Magnesium 1.9 (1.7-2.4) mg/dl Total Bilirubin (0.2-1.0) mg/dl AST (13-39) U/L ALT (7-52) U/L Alkaline Phosphatase (34-104) U/L Troponin I High Sens (0-20) pg/ml Total Protein (6.0-8.3) gm/dl Albumin (3.4-5.0) gm/dl Globulin (2.5-4.0) gm/dl Albumin/Globulin Ratio (0.9-2) Lipase (11-82) U/L Urine Color Urine Appearance (Clear) Urine pH (4.5-7.5) Ur Specific [place] (1.000-1.030) Urine Protein (Negative) Urine Glucose (UA) (Negative) Urine Ketones (Negative) Urine Blood (Negative) Urine Nitrite (Negative) Urine Bilirubin (Negative) Urine Urobilinogen (Negative) Ur Leukocyte Esterase (Negative) Urine WBC (Auto) (0-5) /hpf Urine RBC (Auto) (0-4) /hpf U Hyaline Cast (Auto) (0-5) /lpf U Epithel Cells (Auto) (0-5) /lpf Urine Bacteria (Auto) (Negative) SARS-CoV-2, RNA, NAAT NEGATIVE (NEGATIVE) 03/11/23 03/11/23 03/11/23 Range/Units 19:30 18:01 18:01 WBC 16.83 H (4.8-10.8) K/ul RBC 4.52 L (4.70-6.10) M/uL Hgb 14.3 (14.0-18.0) g/dl Hct 41.5 L (42.0-52.0) % MCV 91.8 (80.0-100.0) fL MCH 31.6 (25.0-34.0) pg MCHC 34.5 (32.0-36.0) g/dL RDW Std Deviation 47.8 H (36.4-46.3) fL RDW Coeff of Renan 14.2 (11.5-14.5) % Plt Count 195 (130-400) K/uL MPV 9.3 L (9.4-12.4) fL Immature Gran % (Auto) 0.5 % Neut % (Auto) 91.4 % Lymph % (Auto) 1.8 % [place] % (Auto) 6.1 % Eos % (Auto) 0.0 % Baso % (Auto) 0.2 % Neut # (Auto) 15.36 H (1.40-6.50) K/uL Lymph # (Auto) 0.31 L (1.2-3.4) K/uL [place] # (Auto) 1.03 H (0.11-0.59) K/uL Eos # (Auto) 0.00 (0-0.50) K/uL Baso # (Auto) 0.04 (0-0.2) K/uL Immature Gran # (Auto) 0.09 (0.01-0.20) K/uL Sodium 136 (136-145) mmol/L Potassium 4.3 (3.5-5.1) mmol/L Chloride 104 (98-107) mmol/L Carbon Dioxide 24 (21-32) mmol/L Anion Gap 8 (3-11) BUN 23 (6-23) mg/dl Creatinine 1.13 (0.6-1.4) mg/dl Est Cr Clr Drug Dosing Not Reportable Est GFR ( Amer) 68.8 ml/min Est GFR (Non-Af Amer) 59.4 ml/min BUN/Creatinine Ratio 20.4 H (10-20) Glucose 162 H (70-99(Fasting)) mg/dl Calcium 9.1 (8.6-10.3) mg/dl Magnesium (1.7-2.4) mg/dl Total Bilirubin 0.9 (0.2-1.0) mg/dl AST 90 H (13-39) U/L ALT 65 H (7-52) U/L Alkaline Phosphatase 139 H (34-104) U/L Troponin I High Sens 9.4 (0-20) pg/ml Total Protein 6.7 (6.0-8.3) gm/dl Albumin 3.9 (3.4-5.0) gm/dl Globulin 2.8 (2.5-4.0) gm/dl Albumin/Globulin Ratio 1.4 (0.9-2) Lipase 7 L (11-82) U/L Urine Color Dark Yellow Urine Appearance Clear (Clear) Urine pH 5.0 (4.5-7.5) Ur Specific [place] 1.033 H (1.000-1.030) Urine Protein 2+ H (Negative) Urine Glucose (UA) 1+ H (Negative) Urine Ketones 1+ H (Negative) Urine Blood 3+ H (Negative) Urine Nitrite Negative (Negative) Urine Bilirubin Negative (Negative) Urine Urobilinogen Negative (Negative) Ur Leukocyte Esterase Negative (Negative) Urine WBC (Auto) 5-10 H (0-5) /hpf Urine RBC (Auto) 10-30 H (0-4) /hpf U Hyaline Cast (Auto) 10-30 H (0-5) /lpf U Epithel Cells (Auto) 5-10 H (0-5) /lpf Urine Bacteria (Auto) Negative (Negative) SARS-CoV-2, RNA, NAAT (NEGATIVE) Medications Administered Current Inpatient Medications Amlodipine Besylate (Amlodipine Besylate 5 Mg Tab) 5 mg PO QAM [facility] Stop: 04/11/23 08:59 Apixaban (Apixaban 5 Mg Tablet) 5 mg PO Q12 [facility] Stop: 04/10/23 23:52 Last Admin: 03/12/23 01:08 Dose: 5 mg Clopidogrel Bisulfate (Clopidogrel Bisulfate 75 Mg Tab) [facility]: 04/11/23 08:59 Ampicillin Sodium/Sulbactam Sodium 3,000 mg/ Sodium Chloride 108 mls @ 200 mls/hr IV Q6H [facility]; Protocol Stop: 03/19/23 00:00 Last Infusion: 03/12/23 07:08 Dose: Infused Dextrose/Sodium Chloride (D5w And 1/2nss) 1,000 mls @ 100 mls/hr IV .Q10H [facility] Stop: 04/10/23 23:52 Last Admin: 03/12/23 01:11 Dose: 100 mls/hr Levalbuterol HCl (Levalbuterol 1.25 Mg/3 Ml Neb) 1.25 mg NEB Q4H PRN; Protocol PRN Reason: Shortness Of Breath Or Wheezing Stop: 04/10/23 23:52 Lisinopril (Lisinopril 20 Mg Tab) 20 mg PO QAM [facility] Stop: 04/11/23 08:59 Nitroglycerin (Nitroglycerin Sl 0.4 Mg/Tab Tab) 0.4 mg SL UD PRN PRN Reason: Chest Pain Stop: 04/10/23 23:52 Ondansetron HCl (Ondansetron Inj 2 Mg/Ml 2 Ml Vial) 4 mg IV Q6H PRN PRN Reason: Nausea Stop: 04/10/23 23:52 Simvastatin (Simvastatin 20 Mg Tab) 20 mg PO [facility] Stop: 04/10/23 23:52 Last Admin: 03/12/23 01:08 Dose: 20 mg
[2023-03-12] MEDS: lisinopril 20 MG TAB PO SCH (08:07)
[2023-03-12] MEDS: CLOPIDOGREL BISULFATE 75 MG TAB PO SCH (08:07)
[2023-03-12] MEDS: amLODIPine BESYLATE 5 MG TAB PO SCH (08:07)
--- NOTE | 2023-03-12 09:32 | Gastrointestinal Consultation ---
Date of Consultation March 12, 2023 Assessment & Plan (1) Nausea, vomiting, and diarrhea: He has had two days of N, V and diarrhea. He feels better now. I suspect he had an acute gastroenteritis and he seems to be getting over it. He has had a drop in his h/h but I suspect a lot of that due to rehydration. He denies passing blood. CT suggests enteritis with fluid filled loops of bowel but also shows "thickened rectum". This could be due to proctitis or underdistension. It could also be due to malignancy. He has no prior CT on his chart to tell if this is an acute issue or not. He doesn't remember when his last colonoscopy was. Colonoscopy could be done but antiplatelet drugs would need to be held. I would not due this under the acute settings as determining if he has chronic proctitis (unlikely) would be difficult versus comparing to acute proctitis. Decision about colonoscopy could be done as an outpatient. I will follow. Would advance diet when you are ready, I think he is History of Present Illness Reason for Consultation: diarrhea, abnormal CT Attending Physician: Geoffrey Chapa MD History of Present Illness 82 year old man with two days of diarrhea and some vomiting. He was feeling weak so he was admitted. He tells me now that his stomach feels back to normal. He only had "a little vomiting" and some diarrhea. He did not notice any blood in his emesis or stool. He denies having any fever. He has had CVA and TIA and is on antiplatelet drugs. He doesn't remember when his last colonoscopy was. CT on admit suggested enteritis with thickened rectum which could be related to underdistension. Allergies Allergy/AdvReac Type Severity Reaction Status Date / Time No Known Allergies Allergy Verified 03/11/23 19:42 Home Medications Medication Instructions Recorded Confirmed Type amlodipine 5 mg tablet 5 mg PO QAM 10/10/19 03/11/23 History lisinopril 20 mg tablet 20 mg PO QAM 10/10/19 03/11/23 History simvastatin 20 mg tablet 20 mg PO HS 10/10/19 03/11/23 History clopidogrel 75 mg tablet 75 mg PO QAM 12/14/19 03/11/23 History apixaban 5 mg tablet (Eliquis) 5 mg PO Q12H #60 tabs 05/12/21 03/11/23 Rx Patient History Medical History History of CVA (cerebrovascular accident) Hypertension Pulmonary embolism TIA (transient ischemic attack) Surgical History No pertinent past surgical history Family History Other Family history non-contributory Social History Smoking Status: Never smoker Second Hand Exposure: No; Do You Dip or Chew Tobacco: No; Hx Alcohol Use: No Hx Substance Use: No Preferred Language: [place] 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 Ability: Effective Airplane Pilot Required: No Beliefs That Will Affect Care: None Current Living Situation: Family Current Living Situation Comment: NO STAIRS, WITH CAT Other Information That Helps Us Care for You: No Feels Safe at Home: Yes Safety Concerns: Feels Safe At This Time Assistive Devices: Wheelchair Review of Systems Review of Systems: All systems reviewed & are unremarkable except as noted in HPI & below Physical Exam Constitutional: WD/WN, vitals as above no acute distress Eyes: PERRL, conjunctivae normal, anicteric sclerae ENMT: external ear and nose normal, oropharynx normal Neck: trachea midline, no thyromegaly Respiratory: normal respiratory effort, lungs clear to auscultation Cardiovascular: RRR, no murmur, no edema Gastrointestinal (Abdomen): normal bowel sounds, soft, nontender, no hepatosplenomegaly Musculoskeletal: Extremities: no cyanosis and no clubbing Skin: no rashes, warm and dry Neurologic: PERRL, EOMI, accommodation nl, no face palsy, no dysarthria Psychiatric: Orientation: alert and oriented x 3 Results & Data Vital Signs (Past 12 Hours) Vital Signs Temp Pulse Pulse Pulse Resp BP Pulse Ox 03/12/23 07:00 58 L 03/12/23 08:07 37.3 C 69 14 136/70 94 03/12/23 04:37 37.2 C 63 63 H 105/61 96 03/11/23 23:53 62 03/11/23 22:30 37.0 C 75 18 145/71 H 94 03/11/23 23:53 03/11/23 23:53 37.0 C 75 18 145/71 H 94 O2 Del Method O2 Flow Rate 03/12/23 07:00 03/12/23 08:07 Nasal Cannula 2 03/12/23 04:37 Nasal Cannula 2 03/11/23 23:53 03/11/23 22:30 Nasal Cannula 2 03/11/23 23:53 Room Air 03/11/23 23:53 Nasal Cannula Laboratory Results 03/11/23 03/11/23 03/11/23 18:01 18:01 19:30 WBC 16.83 H RBC 4.52 L Hgb 14.3 Hct 41.5 L MCV 91.8 MCH 31.6 MCHC 34.5 RDW Std Deviation 47.8 H RDW Coeff of Renan 14.2 Plt Count 195 MPV 9.3 L Immature Gran % (Auto) 0.5 Neut % (Auto) 91.4 Lymph % (Auto) 1.8 [place] % (Auto) 6.1 Eos % (Auto) 0.0 Baso % (Auto) 0.2 Neut # (Auto) 15.36 H Lymph # (Auto) 0.31 L [place] # (Auto) 1.03 H Eos # (Auto) 0.00 Baso # (Auto) 0.04 Immature Gran # (Auto) 0.09 Sodium 136 Potassium 4.3 Chloride 104 Carbon Dioxide 24 Anion Gap 8 BUN 23 Creatinine 1.13 Est Cr Clr Drug Dosing Not Reportable Est GFR ( Amer) 68.8 Est GFR (Non-Af Amer) 59.4 BUN/Creatinine Ratio 20.4 H Glucose 162 H Calcium 9.1 Magnesium Total Bilirubin 0.9 AST 90 H ALT 65 H Alkaline Phosphatase 139 H Troponin I High Sens 9.4 Total Protein 6.7 Albumin 3.9 Globulin 2.8 Albumin/Globulin Ratio 1.4 Lipase 7 L Urine Color Dark Yellow Urine Appearance Clear Urine pH 5.0 Ur Specific [place] 1.033 H Urine Protein 2+ H Urine Glucose (UA) 1+ H Urine Ketones 1+ H Urine Blood 3+ H Urine Nitrite Negative Urine Bilirubin Negative Urine Urobilinogen Negative Ur Leukocyte Esterase Negative Urine WBC (Auto) 5-10 H Urine RBC (Auto) 10-30 H U Hyaline Cast (Auto) 10-30 H U Epithel Cells (Auto) 5-10 H Urine Bacteria (Auto) Negative SARS-CoV-2, RNA, NAAT 03/11/23 03/12/23 03/12/23 Unknown 05:48 05:48 WBC 15.86 H RBC 3.78 L Hgb 11.8 L Hct 34.6 L MCV 91.5 MCH 31.2 MCHC 34.1 RDW Std Deviation 48.9 H RDW Coeff of Renan 14.5 Plt Count 199 MPV 9.8 Immature Gran % (Auto) 0.6 Neut % (Auto) 84.3 Lymph % (Auto) 5.2 [place] % (Auto) 9.6 Eos % (Auto) 0.1 Baso % (Auto) 0.2 Neut # (Auto) 13.39 H Lymph # (Auto) 0.82 L [place] # (Auto) 1.52 H Eos # (Auto) 0.01 Baso # (Auto) 0.03 Immature Gran # (Auto) 0.09 Sodium 137 Potassium 3.9 Chloride 106 Carbon Dioxide 27 Anion Gap 4 BUN 23 Creatinine 1.05 Est Cr Clr Drug Dosing 52.3 Est GFR ( Amer) 75.2 Est GFR (Non-Af Amer) 64.9 BUN/Creatinine Ratio 21.9 H Glucose 127 H Calcium 8.5 L Magnesium 1.9 Total Bilirubin AST ALT Alkaline Phosphatase Troponin I High Sens Total Protein Albumin Globulin Albumin/Globulin Ratio Lipase Urine Color Urine Appearance Urine pH Ur Specific [place] Urine Protein Urine Glucose (UA) Urine Ketones Urine Blood Urine Nitrite Urine Bilirubin Urine Urobilinogen Ur Leukocyte Esterase Urine WBC (Auto) Urine RBC (Auto) U Hyaline Cast (Auto) U Epithel Cells (Auto) Urine Bacteria (Auto) SARS-CoV-2, RNA, NAAT NEGATIVE Diagnostic Findings Abdomen/Pelvis CT 03/11/23 17:56 Exam(s): CT ABDOMEN + PELVIS Without Contrast EXAM: CT Abdomen and Pelvis Without Intravenous Contrast CLINICAL HISTORY: Reason for exam: vomiting, abd pain. TECHNIQUE: Axial computed tomography images of the abdomen and pelvis without intravenous contrast. CTDI is 16.6 mGy and DLP is 844.01 mGy-cm. Automated exposure control was utilized for the study. A dose lowering technique was utilized adhering to the principles of ALARA. COMPARISON: CT abdomen/pelvis on 08/01/2008 FINDINGS: Lung bases: Dependent atelectasis bilaterally. Heart: Trace pericardial fluid. Mild cardiomegaly. Coronary artery and aortic calcifications. ABDOMEN: Liver: Small hypodensities in the liver are too small to definitively characterize. Gallbladder and bile ducts: Unremarkable. No calcified stones. No ductal dilation. Pancreas: Unremarkable. No ductal dilation. Spleen: Unremarkable. No splenomegaly. Adrenals: Nonspecific mild thickening of the left adrenal gland. Kidneys and ureters: Small left renal cyst. No hydronephrosis or stone. Stomach and bowel: Fluid and gas-filled small bowel loops could represent enteritis in the appropriate clinical setting. Wall thickening of the rectum may be secondary to underdistention. Proctitis or neoplasm cannot be excluded. Evaluation of the stomach is limited by underdistention. PELVIS: Appendix: Normal appendix. Bladder: Unremarkable. No stones. Reproductive: Mild prostatomegaly. ABDOMEN and PELVIS: Intraperitoneal space: Unremarkable. No free air. No significant fluid collection. Bones/joints: Scoliosis. Degenerative changes of the spine. No acute fracture. No dislocation. Soft tissues: Unremarkable. Vasculature: Atherosclerotic changes of the vasculature. No aortic aneurysm. IVC filter in place. Lymph nodes: Unremarkable. No enlarged lymph nodes. IMPRESSION: 1. Fluid and gas-filled small bowel loops could represent enteritis in the appropriate clinical setting. 2. Wall thickening of the rectum may be secondary to underdistention. Proctitis or neoplasm cannot be excluded. 3. Mild prostatomegaly. Electronically signed by: Ray Watkins M.D. 03/11/23 19:24 PM Chest X-Ray 03/11/23 18:33 XR chest 1V portable CLINICAL HISTORY: vomiting, hypoxia TECHNIQUE: Single frontal radiograph of the chest was obtained. Comparison: Comparison is made to chest radiograph 05/09/2021 FINDINGS: No lines and tubes are seen. Cardiomegaly is noted. The aortic arch is calcified. Previous seen noted right midlung airspace opacity is less conspicuous on today's exam. There is suggestion of interstitial thickening in the lungs. No evidence of pleural effusion or pneumothorax. IMPRESSION: No evidence of acute abnormalities. ACT 112: Negative or not required by law. Electronically signed by: Dayron Bonilla M.D. 03/11/2023 7:[address] 03/11/23 23:53 Exam(s): CT CHEST Without Contrast EXAM: CT Chest Without Intravenous Contrast CLINICAL HISTORY: Reason for exam: hypoxia, n/v, aspiration?. TECHNIQUE: Axial computed tomography images of the chest without intravenous contrast. CTDI is 8.72 mGy and DLP is 317.03 mGy-cm. Automated exposure control was utilized for the study. A dose lowering technique was utilized adhering to the principles of ALARA. COMPARISON: Dated 05/09/21 FINDINGS: Lungs: There is mild bibasilar pleural scarring. There is some scattered atelectasis. Pleural space: See above. Heart: There is a trace pericardial effusion. There is mild cardiomegaly. There are coronary vascular calcifications. Bones/joints: There are degenerative changes of the thoracic spine. No acute fracture. No dislocation. Soft tissues: Unremarkable. Vasculature: See above. Lymph nodes: Unremarkable. No enlarged lymph nodes. IMPRESSION: No acute findings in the chest. Electronically signed by: Ernesto Francis MD 03/12/23 01:07 AM
--- NOTE | 2023-03-12 10:34 | Electrocardiogram Report ---
Test Reason : Blood Pressure : / mmHG Vent. Rate : 071 BPM Atrial Rate : 071 BPM P-R Int : 160 ms QRS Dur : 094 ms QT Int : 412 ms P-R-T Axes : 042 -41 042 degrees QTc Int : 447 ms Sinus rhythm with occasional Premature ventricular complexes Left axis deviation Abnormal ECG When compared with ECG of 09-MAY-2021 21:08, Premature ventricular complexes are now Present Premature atrial complexes are no longer Present Confirmed by Shantanu Tidwell ([id number]) on 03/12/2023 10:33:32 AM Referred By: REFERRED SELF Confirmed By:Shantanu Tidwell
[2023-03-13] MEDS: AMPICILLIN/SULBACTAM SOD 3,000 MG in 0.9 % SODIUM CHLORIDE 100 ML IV SCH ×4 (05:41→22:27)
[2023-03-13] MEDS: D5W AND 1/2NSS 1,000 ML IV SCH (06:33)
[2023-03-13 07:01] LABS: Hematocrit (blood only) 36.2 % (42.0-52.0); Hemoglobin 12.1 g/dl (14.0-18.0); Mean Corpuscular Hemoglobin 30.9 pg (25.0-34.0); Mean Corpuscular Hgb Conc 33.4 g/dL (32.0-36.0); Mean Corpuscular Volume 92.6 fL (80.0-100.0); Mean Platelet Volume 9.8 fL (9.4-12.4); Platelet Count 214 K/uL (130-400); RDW Coefficient of Variation 14.6 % (11.5-14.5); RDW Standard Deviation 49.1 fL (36.4-46.3); Red Blood Count 3.91 M/uL (4.70-6.10); White Blood Count 10.47 K/ul (4.8-10.8)
[2023-03-13 07:21] LABS: BUN Creatinine Ratio 13.8 (10-20); Calcium 8.4 mg/dl (8.6-10.3); Creatinine Clr Calc Pharmacy 47.8 ml/min; Est GFR (African American) 71.9 ml/min; Phosphorus 2.4 mg/dl (2.5-4.9); Potassium 3.5 mmol/L (3.5-5.1)
[2023-03-13] MEDS ORDERED: POTASSIUM PHOS 3 MMOL/1 ML INFUSION IV STA (07:56)
--- NOTE | 2023-03-13 07:57 | Hospitalist Progress Note ---
Date of Service March 13, 2023 Assessment & Plan (1) Nausea, vomiting, and diarrhea: (2) Leukocytosis: Plan: This is an 82-year-old male who presents with nausea and diarrhea and also found to have hypoxia. 1. Nausea, vomiting, diarrhea, most likely gastroenteritis on the CAT scan with questionable rectal wall thickening. WBC 17K -> 10.5K Stool pcr ordered - not obtained d/t incontinence Supportive care. cont. abx for now as started on admission. GI consulted - suspect he had an acute gastroenteritis and he seems to be getting over it. He has had a drop in his h/h but I suspect a lot of that due to rehydration. He denies passing blood. CT suggests enteritis with fluid filled loops of bowel but also shows "thickened rectum". This could be due to proctitis or underdistension. It could also be due to malignancy. He has no prior CT on his chart to tell if this is an acute issue or not. He doesn't remember when his last colonoscopy was. Colonoscopy could be done but antiplatelet drugs would need to be held. I would not do this under the acute settings as determining if he has chronic proctitis (unlikely) would be difficult versus comparing to acute proctitis. Decision about colonoscopy could be done as an outpatient. Diet advanced, speech eval 2. Hypoxia, possible aspiration. The patient w/ nausea, vomiting. Chest x-ray negative, but requiring oxygen. CT chest obtained and negative. Currently on RA and saturating 95% - patient also has a history of stroke in the past. We will obtain speech evaluation. Empirically started on Unasyn. 3. History of cerebrovascular accident. On Eliquis, Plavix, statin, continue. 4. Chronic kidney disease stage III. Presently creatinine of 1.1. We will follow the labs. 5. History of pulmonary embolism and DVT, status post inferior vena cava filter, on Eliquis 6. Hyperlipidemia, on statin. 7. Hypertension, on amlodipine and lisinopril. We will monitor the blood pressure. DVT prophylaxis, on Eliquis. DISPOSITION: med tele. PT/OT prior to discharge. Admission and Anticipated Discharge Date Admission Date: March 11, 2023 Subjective Pt seen in follow up of nausea vomiting, hypoxia -enteritis, possible proctitis/neoplasm Patient is currently sitting up in bed, in no acute distress, currently on room air He is awake alert oriented, able to answer simple questions appropriately Patient currently denies any chest pain shortness of breath, fevers chills, denies abdominal pain +hiccups on and off since Currently no nausea Patient seen by GI Discussed w/ daughter at the bedside yesterday Review of Systems Review of Systems: All systems reviewed & are unremarkable except as noted in Subjective Physical Exam Physical Exam: GENERAL: elderly M not in acute distress HEENT: NC/AT. Pupils equal, round and reactive to light. Oral mucosa somewhat dry. NECK: No JVD, no neck masses. CARDIOVASCULAR: S1 and S2 heard. Regular rate and rhythm. No murmur, no gallop. RESPIRATORY: Normal AP diameter. No accessory muscle use. No wheezing, no crackles. ABDOMEN: Soft, bowel sounds present, nontender, no distention. NEURO: Alert and oriented, speaking in low volume and somewhat mumbling. Insight is okay. Obeys simple commands.Moves extremities EXTREMITIES: No edema, no erythema. Results & Data Results & Data Vital Signs (Past 12 Hours) Vital Signs Temp Pulse Pulse Resp BP Pulse Ox O2 Del Method 03/13/23 07:01 58 L 03/13/23 04:26 36.8 C 61 20 117/66 93 Nasal Cannula 03/13/23 00:17 59 L 03/12/23 23:48 37.0 C 59 L 20 110/61 93 Room Air 03/12/23 20:53 59 L 03/12/23 20:12 36.9 C 62 20 128/69 92 Room Air O2 Flow Rate 03/13/23 07:01 03/13/23 04:26 3 03/13/23 00:17 03/12/23 23:48 03/12/23 20:53 03/12/23 20:12 Laboratory Results 03/13/23 03/13/23 Range/Units 06:29 06:27 WBC 10.47 (4.8-10.8) K/ul RBC 3.91 L (4.70-6.10) M/uL Hgb 12.1 L (14.0-18.0) g/dl Hct 36.2 L (42.0-52.0) % MCV 92.6 (80.0-100.0) fL MCH 30.9 (25.0-34.0) pg MCHC 33.4 (32.0-36.0) g/dL RDW Std Deviation 49.1 H (36.4-46.3) fL RDW Coeff of Renan 14.6 H (11.5-14.5) % Plt Count 214 (130-400) K/uL MPV 9.8 (9.4-12.4) fL Sodium 138 (136-145) mmol/L Potassium 3.5 (3.5-5.1) mmol/L Chloride 105 (98-107) mmol/L Carbon Dioxide 29 (21-32) mmol/L Anion Gap 4 (3-11) BUN 15 (6-23) mg/dl Creatinine 1.09 (0.6-1.4) mg/dl Est Cr Clr Drug Dosing 47.8 ml/min Est GFR ( Amer) 71.9 ml/min Est GFR (Non-Af Amer) 62.0 ml/min BUN/Creatinine Ratio 13.8 (10-20) Glucose 99 (70-99(Fasting)) mg/dl Calcium 8.4 L (8.6-10.3) mg/dl Phosphorus 2.4 L (2.5-4.9) mg/dl Magnesium 2.0 (1.7-2.4) mg/dl Medications Administered Current Inpatient Medications Amlodipine Besylate ([facility]od[facility] Besylate 5 Mg Tab) [facility] [place]: 04/11/23 08:59 Last Admin: 03/13/23 08:30 Dose: 5 mg Apixaban (Apixaban 5 Mg Tablet) 5 mg PO Q12 [facility] Stop: 04/10/23 23:52 Last Admin: 03/13/23 08:30 Dose: 5 mg Clopidogrel Bisulfate (Clopidogrel Bisulfate 75 Mg Tab) [facility] [place]: 04/11/23 08:59 Last Admin: 03/13/23 08:30 Dose: 75 mg Ampicillin Sodium/Sulbactam Sodium 3,000 mg/ Sodium Chloride 108 mls @ 200 mls/hr IV Q6H [facility]; Protocol Stop: 03/19/23 00:00 Last Infusion: 03/13/23 06:33 Dose: Infused Dextrose/Sodium Chloride (D5w And 1/2nss) 1,000 mls @ 80 mls/hr IV .[id number] [facility] Stop: 04/10/23 23:52 Last Admin: 03/13/23 06:33 Dose: 100 mls/hr Levalbuterol HCl (Levalbuterol 1.25 Mg/3 Ml Neb) 1.25 mg NEB Q4H PRN; Protocol PRN Reason: Shortness Of Breath Or Wheezing Stop: 04/10/23 23:52 Lisinopril (Lisinopril 20 Mg Tab) [facility] [place]: 04/11/23 08:59 Last Admin: 03/13/23 08:30 Dose: 20 mg Nitroglycerin (Nitroglycerin Sl 0.4 Mg/Tab Tab) 0.4 mg SL UD PRN PRN Reason: Chest Pain Stop: 04/10/23 23:52 Ondansetron HCl (Ondansetron Inj 2 Mg/Ml 2 Ml Vial) 4 mg IV Q6H PRN PRN Reason: Nausea Stop: 04/10/23 23:52 Last Admin: 03/12/23 20:37 Dose: 4 mg Simvastatin (Simvastatin 20 Mg Tab) 20 mg PO [facility] Stop: 04/10/23 23:52 Last Admin: 03/12/23 20:32 Dose: 20 mg
[2023-03-13] MEDS ORDERED: POTASSIUM PHOSPHATE 6 MMOL in SODIUM CHLORIDE 0.9% 250 ML IV ONE (08:30)
[2023-03-13] MEDS: CLOPIDOGREL BISULFATE 75 MG TAB PO SCH (08:30)
[2023-03-13] MEDS: APIXABAN 5 MG TABLET PO SCH ×2 (08:30→20:22)
[2023-03-13] MEDS: lisinopril 20 MG TAB PO SCH (08:30)
[2023-03-13] MEDS: amLODIPine BESYLATE 5 MG TAB PO SCH (08:30)
--- NOTE | 2023-03-13 10:12 | Gastroenterology Progress Note ---
Date of Service March 13, 2023 Assessment & Plan (1) Nausea, vomiting, and diarrhea: Plan: He seems to be over what seems to have been a self limited illness. No further recommendations. Will sign off, please reconsult if needed Admission and Anticipated Discharge Date Admission Date: March 11, 2023 Subjective Feels good. No nausea, vomiting or diarrhea. Back to normal Physical Exam Physical Exam: he looks well Results & Data Vital Signs (Past 12 Hours) Vital Signs Temp Pulse Pulse Pulse Resp BP Pulse Ox 03/13/23 07:57 36.7 C 60 14 148/72 H 95 03/13/23 07:01 58 L 03/13/23 04:26 36.8 C 61 20 117/66 93 03/13/23 00:17 59 L 03/12/23 23:48 37.0 C 59 L 20 110/61 93 O2 Del Method O2 Flow Rate 03/13/23 07:57 Room Air 2 03/13/23 07:01 03/13/23 04:26 Nasal Cannula 3 03/13/23 00:17 03/12/23 23:48 Room Air
[2023-03-13] MEDS: POTASSIUM CHLORIDE / WTR 10 MEQ/100 ML PLCT IV SCH ×2 (10:19→12:56)
[2023-03-13] MEDS: SIMVASTATIN 20 MG TAB PO SCH (20:22)
[2023-03-13] MEDS ORDERED: POTASSIUM CHLORIDE PWD 20 MEQ PACK PO STA (23:56)
[2023-03-13] MEDS ORDERED: NSS + 20MEQ KCL 20 MEQ/1,000 ML BAG IV ONE (23:59)
[2023-03-14] MEDS ORDERED: POTASSIUM CHLORIDE PWD 20 MEQ PACK PO ONE (02:00)
--- NOTE | 2023-03-14 03:27 | 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 Note ---
Date of Service: March 14, 2023 Patient noted to be in A-fib on the monitor. Heart rate 110s Patient asymptomatic as per RN. AP New onset A-fib Initiate beta-alfred for rate control TTE, Cardiology consult Re: New onset A-fib
[2023-03-14] MEDS: AMPICILLIN/SULBACTAM SOD 3,000 MG in 0.9 % SODIUM CHLORIDE 100 ML IV SCH ×4 (04:19→23:14)
[2023-03-14] MEDS: METOPROLOL TARTRATE 25 MG TAB PO SCH ×2 (04:20→21:50)
[2023-03-14] MEDS: CLOPIDOGREL BISULFATE 75 MG TAB PO SCH (08:01)
[2023-03-14] MEDS: lisinopril 20 MG TAB PO SCH (08:01)
[2023-03-14] MEDS: amLODIPine BESYLATE 5 MG TAB PO SCH (08:02)
[2023-03-14] MEDS: APIXABAN 5 MG TABLET PO SCH ×2 (08:02→21:50)
[2023-03-14 08:41] LABS: Hematocrit (blood only) 39.2 % (42.0-52.0); Hemoglobin 13.2 g/dl (14.0-18.0); Mean Corpuscular Hemoglobin 31.1 pg (25.0-34.0); Mean Corpuscular Hgb Conc 33.7 g/dL (32.0-36.0); Mean Corpuscular Volume 92.5 fL (80.0-100.0); Mean Platelet Volume 9.8 fL (9.4-12.4); Platelet Count 244 K/uL (130-400); RDW Coefficient of Variation 14.6 % (11.5-14.5); Red Blood Count 4.24 M/uL (4.70-6.10)
[2023-03-14 08:59] LABS: BUN Creatinine Ratio 11.5 (10-20); Calcium 8.5 mg/dl (8.6-10.3); Creatinine Clr Calc Pharmacy 50.9 ml/min; Est GFR (African American) 76.1 ml/min; Est GFR (Non-African American) 65.6 ml/min; Magnesium 2.1 mg/dl (1.7-2.4); Phosphorus 2.5 mg/dl (2.5-4.9); Potassium 4.2 mmol/L (3.5-5.1)
--- NOTE | 2023-03-14 10:04 | Hospitalist Progress Note ---
Date of Service March 14, 2023 Assessment & Plan (1) Nausea, vomiting, and diarrhea: (2) Leukocytosis: Plan: This is an 82-year-old male who presents with nausea and diarrhea and also found to have hypoxia. 1. Nausea, vomiting, diarrhea, most likely gastroenteritis on the CAT scan with questionable rectal wall thickening. WBC 17K -> 10.5K -> 6.6K Stool pcr ordered - obtained today and results pending Supportive care. cont. abx for now as started on admission. GI consulted - suspect he had an acute gastroenteritis and he seems to be getting over it. He has had a drop in his h/h but I suspect a lot of that due to rehydration. He denies passing blood. CT suggests enteritis with fluid filled loops of bowel but also shows "thickened rectum". This could be due to proctitis or underdistension. It could also be due to malignancy. He has no prior CT on his chart to tell if this is an acute issue or not. He doesn't remember when his last colonoscopy was. Colonoscopy could be done but antiplatelet drugs would need to be held. I would not do this under the acute settings as determining if he has chronic proctitis (unlikely) would be difficult versus comparing to acute proctitis. Decision about colonoscopy could be done as an outpatient. Diet advanced, speech eval - plan for video swallow tmrw 2. Hypoxia, possible aspiration. The patient w/ nausea, vomiting. Chest x-ray negative, but requiring oxygen. CT chest obtained and negative. Currently on RA and saturating 93% - patient also has a history of stroke in the past. We will obtain speech ev aluation. Empirically started on Unasyn. 3. new onset Afib - overnight -pt started on metoprolol, pt is already on eliquis -cardiology consulted Echo obtained LV is normal in size. LV systolic function is normal. EF 55 to 60%. RV systolic function is normal. LA size is normal. RA size is normal. Aortic valve sclerosis moderate, without significant aortic valvular stenosis. There is no significant aortic regurg. There is mild tricuspid regurg. Mild pulmonary hypertension with an estimated pulmonary artery pressure of 40 mmHg. 3. History of cerebrovascular accident. On Eliquis, Plavix, statin, continue. 4. Chronic kidney disease stage III. Presently creatinine of 1.1. We will follow the labs. 5. History of PE and DVT, s/p inferior vena cava filter, on Eliquis 6. Hyperlipidemia, on statin. 7. Hypertension, on amlodipine and lisinopril. We will monitor the blood pressure. DVT prophylaxis, on Eliquis. DISPOSITION: med tele. PT/OT prior to discharge. Admission and Anticipated Discharge Date Admission Date: March 11, 2023 Subjective Pt seen in follow up of nausea vomiting, hypoxia -enteritis, possible proctitis/neoplasm Overnight developed afib - new onset Patient is currently sitting up in bed, in no acute distress, currently on room air He is awake alert oriented, able to answer simple questions appropriately Patient currently denies any chest pain shortness of breath, fevers chills, denies abdominal pain +hiccups on and off since Currently no nausea Patient seen by GI Today was able to provide stool sample Seen by speech - plan for video swallow tomorrow Review of Systems Review of Systems: All systems reviewed & are unremarkable except as noted in Subjective Physical Exam Physical Exam: GENERAL: elderly M not in acute distress HEENT: NC/AT. Pupils equal, round and reactive to light. Oral mucosa somewhat dry. NECK: No JVD, no neck masses. CARDIOVASCULAR: S1 and S2 heard. Regular rate and rhythm. No murmur, no gallop. RESPIRATORY: Normal AP diameter. No accessory muscle use. No wheezing, no crackles. ABDOMEN: Soft, bowel sounds present, nontender, no distention. NEURO: Alert and oriented, speaking in low volume and somewhat mumbling. Insight is okay. Obeys simple commands.Moves extremities EXTREMITIES: No edema, no erythema. Results & Data Results & Data Vital Signs (Past 12 Hours) Vital Signs Temp Pulse Pulse Resp BP BP Pulse Ox 03/14/23 08:19 36.9 C 89 16 138/78 93 03/14/23 07:32 03/14/23 07:20 102 H 03/14/23 05:43 36.6 C 78 20 121/77 93 03/14/23 04:18 36.5 C 93 H 20 103/68 94 03/13/23 23:23 36.6 C 107 H 20 110/65 93 O2 Del Method 03/14/23 08:19 Room Air 03/14/23 07:32 Room Air 03/14/23 07:20 03/14/23 05:43 Room Air 03/14/23 04:18 Room Air 03/13/23 23:23 Room Air Laboratory Results 03/14/23 03/14/23 Range/Units 07:57 07:57 WBC 6.60 (4.8-10.8) K/ul RBC 4.24 L (4.70-6.10) M/uL Hgb 13.2 L (14.0-18.0) g/dl Hct 39.2 L (42.0-52.0) % MCV 92.5 (80.0-100.0) fL MCH 31.1 (25.0-34.0) pg MCHC 33.7 (32.0-36.0) g/dL RDW Std Deviation 49.0 H (36.4-46.3) fL RDW Coeff of Renan 14.6 H (11.5-14.5) % Plt Count 244 (130-400) K/uL MPV 9.8 (9.4-12.4) fL Sodium 140 (136-145) mmol/L Potassium 4.2 (3.5-5.1) mmol/L Chloride 107 (98-107) mmol/L Carbon Dioxide 29 (21-32) mmol/L Anion Gap 4 (3-11) BUN 12 (6-23) mg/dl Creatinine 1.04 (0.6-1.4) mg/dl Est Cr Clr Drug Dosing 50.9 ml/min Est GFR ( Amer) 76.1 ml/min Est GFR (Non-Af Amer) 65.6 ml/min BUN/Creatinine Ratio 11.5 (10-20) Glucose 85 (70-99(Fasting)) mg/dl Calcium 8.5 L (8.6-10.3) mg/dl Phosphorus 2.5 (2.5-4.9) mg/dl Magnesium 2.1 (1.7-2.4) mg/dl Medications Administered Current Inpatient Medications Amlodipine Besylate (Amlodipine Besylate 5 Mg Tab) 5 mg PO QAM [facility] Stop: 04/11/23 08:59 Last Admin: 03/14/23 08:02 Dose: 5 mg Apixaban (Apixaban 5 Mg Tablet) 5 mg PO Q12 [facility] Stop: 04/10/23 23:52 Last Admin: 03/14/23 08:02 Dose: 5 mg Clopidogrel Bisulfate (Clopidogrel Bisulfate 75 Mg Tab) 75 mg PO QAM [facility] Stop: 04/11/23 08:59 Last Admin: 03/14/23 08:01 Dose: 75 mg Ampicillin Sodium/Sulbactam Sodium 3,000 mg/ Sodium Chloride 108 mls @ 200 mls/hr IV Q6H [facility]; Protocol Stop: 03/19/23 00:00 Last Infusion: 03/14/23 05:00 Dose: Infused Potassium Chloride/Sodium Chloride (Normal Saline W/20 Meq Kcl) 20 meq in 1,000 mls @ 75 mls/hr IV .[id number]; Protocol Stop: 03/14/23 13:18 Last Admin: 03/14/23 00:19 Dose: 75 mls/hr Levalbuterol HCl (Levalbuterol 1.25 Mg/3 Ml Neb) 1.25 mg NEB Q4H PRN; Protocol PRN Reason: Shortness Of Breath Or Wheezing Stop: 04/10/23 23:52 Lisinopril (Lisinopril 20 Mg Tab) 20 mg PO [facility] Stop: 04/11/23 08:59 Last Admin: 03/14/23 08:01 Dose: 20 mg Metoprolol Tartrate (Metoprolol Tartrate 25 Mg Tab) 12.5 mg PO BID [facility] Stop: 04/13/23 03:29 Last Admin: 03/14/23 04:20 Dose: 12.5 mg Nitroglycerin (Nitroglycerin Sl 0.4 Mg/Tab Tab) 0.4 mg SL UD PRN PRN Reason: Chest Pain Stop: 04/10/23 23:52 Ondansetron HCl (Ondansetron Inj 2 Mg/Ml 2 Ml Vial) 4 mg IV Q6H PRN PRN Reason: Nausea Stop: 04/10/23 23:52 Last Admin: 03/12/23 20:37 Dose: 4 mg Simvastatin (Simvastatin 20 Mg Tab) 20 mg PO [facility] Stop: 04/10/23 23:52 Last Admin: 03/13/23 20:22 Dose: 20 mg
--- NOTE | 2023-03-14 10:09 | Gastroenterology Progress Note ---
Date of Service March 14, 2023 Assessment & Plan (1) Nausea, vomiting, and diarrhea: Admission and Anticipated Discharge Date Admission Date: March 11, 2023 Subjective New cardiac issues noted. GI tract not an issue Results & Data Vital Signs (Past 12 Hours) Vital Signs Temp Pulse Pulse Resp BP BP Pulse Ox 03/14/23 08:19 36.9 C 89 16 138/78 93 03/14/23 07:32 03/14/23 07:20 102 H 03/14/23 05:43 36.6 C 78 20 121/77 93 03/14/23 04:18 36.5 C 93 H 20 103/68 94 03/13/23 23:23 36.6 C 107 H 20 110/65 93 O2 Del Method 03/14/23 08:19 Room Air 03/14/23 07:32 Room Air 03/14/23 07:20 03/14/23 05:43 Room Air 03/14/23 04:18 Room Air 03/13/23 23:23 Room Air
--- NOTE | 2023-03-14 10:49 | Electrocardiogram Report ---
Test Reason : Blood Pressure : / mmHG Vent. Rate : 098 BPM Atrial Rate : 150 BPM P-R Int : 000 ms QRS Dur : 086 ms QT Int : 342 ms P-R-T Axes : 000 -48 038 degrees QTc Int : 436 ms Atrial fibrillation with premature ventricular or aberrantly conducted complexes Left anterior fascicular block Abnormal ECG When compared with ECG of 11-MAR-2023 18:19, Atrial fibrillation has replaced Sinus rhythm PVC's are no longer present Confirmed by Shantanu Tidwell ([id number] on 03/14/2023 10:49:22 AM Referred By: REFERRED SELF Confirmed By:Shantanu Tidwell
[2023-03-14 12:11] LABS: Adenovirus F 40/41 PCR Not Detected (NotDetected); Astrovirus PCR Not Detected (NotDetected); Campylobacter PCR Not Detected (NotDetected); Cryptosporidium PCR Not Detected (NotDetected); Cyclospora cayetanensis PCR Not Detected (NotDetected); Entamoeba histolytica PCR Not Detected (NotDetected); Enteroaggregative E.coli(EAEC) Not Detected (NotDetected); Enteropathogenic E.coli (EPEC) Not Detected (NotDetected); Enterotoxigenic E.coli (ETEC) Not Detected (NotDetected); Giardia lamblia PCR Not Detected (NotDetected); Norovirus GI/GII PCR Not Detected (NotDetected); Plesiomonas shigelloides PCR Not Detected (NotDetected); Rotavirus A PCR Not Detected (NotDetected); Salmonella PCR Not Detected (NotDetected); Sapovirus PCR Not Detected (NotDetected); Shiga-like Toxin E.coli (STEC) Not Detected (NotDetected); Shigella/Enteroinvasive E.coli Not Detected (NotDetected); Vibrio cholerae PCR Not Detected (NotDetected); Vibrio species PCR Not Detected (NotDetected); Yersinia enterocolitica PCR Not Detected (NotDetected)
--- NOTE | 2023-03-14 12:14 | Cardiology Consultation ---
Date of Consultation March 14, 2023 Assessment & Plan (1) Nausea, vomiting, and diarrhea: (2) History of CVA (cerebrovascular accident): (3) Atrial fibrillation: Plan The patient is clinically stable and eating lunch without difficulty. He is in a rate controlled atrial fibrillation on Plavix and Eliquis. Cardiology has nothing to add to this case. History of Present Illness Attending Physician: Geoffrey Chapa MD History of Present Illness The patient is a poor historian. Previous history of CVA. Previous history of DVT and pulmonary emboli. The information is taken from the medical record. Patient was admitted with nausea, vomiting and diarrhea. An incidental finding was newly discovered atrial fibrillation. Suspect the patient has a history of PAF. Currently the atrial fibrillation is rate controlled. Allergies Allergy/AdvReac Type Severity Reaction Status Date / Time No Known Allergies Allergy Verified 03/11/23 19:42 Home Medications Medication Instructions Recorded Confirmed Type amlodipine 5 mg tablet 5 mg PO QAM 10/10/19 03/11/23 History lisinopril 20 mg tablet 20 mg PO QAM 10/10/19 03/11/23 History simvastatin 20 mg tablet 20 mg PO HS 10/10/19 03/11/23 History clopidogrel 75 mg tablet 75 mg PO QAM 12/14/19 03/11/23 History apixaban 5 mg tablet (Eliquis) 5 mg PO Q12H #60 tabs 05/12/21 03/11/23 Rx Patient History Medical History History of CVA (cerebrovascular accident) Hypertension Pulmonary embolism TIA (transient ischemic attack) Surgical History No pertinent past surgical history Family History Other Family history non-contributory Social History Smoking Status: Never smoker Second Hand Exposure: No; Do You Dip or Chew Tobacco: No; Hx Alcohol Use: No Hx Substance Use: No Preferred Language: [place] 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 Ability: Effective Bedspread Folder Required: No Beliefs That Will Affect Care: None Current Living Situation: Family Current Living Situation Comment: NO STAIRS, WITH CAT Other Information That Helps Us Care for You: No Feels Safe at Home: Yes Safety Concerns: Feels Safe At This Time Assistive Devices: Wheelchair Review of Systems Review of Systems: Not obtainable Physical Exam Physical Exam: General: no acute distress and stated age Head: normocephalic, no masses, lesions, tenderness or abnormalities Eyes: conjunctiva are pink and non-injected, sclera clear Neck: supple, no adenopathy, no bruits, normal jugular venous pulse, no hepatojugular reflux Chest: normal shape and normal respiratory effort Lungs: clear to auscultation and percussion Cardiac Exam: - irregular rate & rhythm, no murmurs gallops or rubs - normal S1, normal S2 Pulses: 2(+) throughout Abdomen: abdomen soft, non-tender, no abnormal masses and no hepatosplenomegaly Musculoskeletal: no gait disturbance, no joint inflammation, no deforming arthritis Extremities: no edema and no cyanosis Neuro: grossly normal exam Results & Data Vital Signs (Past 12 Hours) Vital Signs Temp Pulse Pulse Resp BP BP Pulse Ox 03/14/23 11:14 36.7 C 80 16 103/63 95 03/14/23 08:19 36.9 C 89 16 138/78 93 03/14/23 07:32 03/14/23 07:20 102 H 03/14/23 05:43 36.6 C 78 20 121/77 93 03/14/23 04:18 36.5 C 93 H 20 103/68 94 O2 Del Method 03/14/23 11:14 Room Air 03/14/23 08:19 Room Air 03/14/23 07:32 Room Air 03/14/23 07:20 03/14/23 05:43 Room Air 03/14/23 04:18 Room Air Laboratory Results Laboratory Results - last 24 hr 03/14/23 03/14/23 03/14/23 07:57 07:57 10:21 WBC 6.60 RBC 4.24 L Hgb 13.2 L Hct 39.2 L MCV 92.5 MCH 31.1 MCHC 33.7 RDW Std Deviation 49.0 H RDW Coeff of Renan 14.6 H Plt Count 244 MPV 9.8 Sodium 140 Potassium 4.2 Chloride 107 Carbon Dioxide 29 Anion Gap 4 BUN 12 Creatinine 1.04 Est Cr Clr Drug Dosing 50.9 Est GFR ( Amer) 76.1 Est GFR (Non-Af Amer) 65.6 BUN/Creatinine Ratio 11.5 Glucose 85 Calcium 8.5 L Phosphorus 2.5 Magnesium 2.1 Stl C. cayetanensis PCR Stool Rotavirus A PCR Stl Adenov F 40/41 PCR Stool Astrovirus (PCR) Stool Campylobacter PCR Stl C. diff Tox B Gene Negative Cdiff Gene Stool Cryptosporidium PCR Stl E.coli Shiga Tox PCR Stl Enterotoxigenic E PCR Stool EPEC (PCR) Stool EAEC (PCR) Stl E. histolytica PCR Stool Giardia Lamblia PCR Stool Salmonella PCR Stool Sapovirus (PCR) Stl P. shigelloides PCR Stl Shigella/EIEC PCR St Y.enterocolitica PCR Stool Vibrio (PCR) Stl Vibrio cholerae PCR Stl Norovirus GI/GII PCR 03/14/23 10:21 WBC RBC Hgb Hct MCV MCH MCHC RDW Std Deviation RDW Coeff of Renan Plt Count MPV Sodium Potassium Chloride Carbon Dioxide Anion Gap BUN Creatinine Est Cr Clr Drug Dosing Est GFR ( Amer) Est GFR (Non-Af Amer) BUN/Creatinine Ratio Glucose Calcium Phosphorus Magnesium Stl C. cayetanensis PCR Not Detected Stool Rotavirus A PCR Not Detected Stl Adenov F 40/41 PCR Not Detected Stool Astrovirus (PCR) Not Detected Stool Campylobacter PCR Not Detected Stl C. diff Tox B Gene Stool Cryptosporidium PCR Not Detected Stl E.coli Shiga Tox PCR Not Detected Stl Enterotoxigenic E PCR Not Detected Stool EPEC (PCR) Not Detected Stool EAEC (PCR) Not Detected Stl E. histolytica PCR Not Detected Stool Giardia Lamblia PCR Not Detected Stool Salmonella PCR Not Detected Stool Sapovirus (PCR) Not Detected Stl P. shigelloides PCR Not Detected Stl Shigella/EIEC PCR Not Detected St Y.enterocolitica PCR Not Detected Stool Vibrio (PCR) Not Detected Stl Vibrio cholerae PCR Not Detected Stl Norovirus GI/GII PCR Not Detected Medications Administered Current Inpatient Medications Amlodipine Besylate (Amlodipine Besylate 5 Mg Tab) 5 mg PO QAM [facility] Stop: 04/11/23 08:59 Last Admin: 03/14/23 08:02 Dose: 5 mg Apixaban (Apixaban 5 Mg Tablet) 5 mg PO Q12 [facility] Stop: 04/10/23 23:52 Last Admin: 03/14/23 08:02 Dose: 5 mg Clopidogrel Bisulfate (Clopidogrel Bisulfate 75 Mg Tab) [facility]: 04/11/23 08:59 Last Admin: 03/14/23 08:01 Dose: 75 mg Ampicillin Sodium/Sulbactam Sodium 3,000 mg/ Sodium Chloride 108 mls @ 200 mls/hr IV Q6H [facility]; Protocol Stop: 03/19/23 00:00 Last Infusion: 03/14/23 12:09 Dose: Infused Potassium Chloride/Sodium Chloride (Normal Saline W/20 Meq Kcl) 20 meq in 1,000 mls @ 75 mls/hr IV .[id number]; Protocol Stop: 03/14/23 13:18 Last Admin: 03/14/23 00:19 Dose: 75 mls/hr Levalbuterol HCl (Levalbuterol 1.25 Mg/3 Ml Neb) 1.25 mg NEB Q4H PRN; Protocol PRN Reason: Shortness Of Breath Or Wheezing Stop: 04/10/23 23:52 Lisinopril (Lisinopril 20 Mg Tab) 20 mg PO [facility] Stop: 04/11/23 08:59 Last Admin: 03/14/23 08:01 Dose: 20 mg Metoprolol Tartrate (Metoprolol Tartrate 25 Mg Tab) 12.5 mg PO BID [facility] Stop: 04/13/23 03:29 Last Admin: 03/14/23 04:20 Dose: 12.5 mg Nitroglycerin (Nitroglycerin Sl 0.4 Mg/Tab Tab) 0.4 mg SL UD PRN PRN Reason: Chest Pain Stop: 04/10/23 23:52 Ondansetron HCl (Ondansetron Inj 2 Mg/Ml 2 Ml Vial) 4 mg IV Q6H PRN PRN Reason: Nausea Stop: 04/10/23 23:52 Last Admin: 03/12/23 20:37 Dose: 4 mg Simvastatin (Simvastatin 20 Mg Tab) 20 mg PO [facility] Stop: 04/10/23 23:52 Last Admin: 03/13/23 20:22 Dose: 20 mg
[2023-03-14] MEDS: SIMVASTATIN 20 MG TAB PO SCH (21:50)
[2023-03-15] MEDS: AMPICILLIN/SULBACTAM SOD 3,000 MG in 0.9 % SODIUM CHLORIDE 100 ML IV SCH ×3 (05:06→19:57)
[2023-03-15] MEDS: METOPROLOL TARTRATE 25 MG TAB PO SCH ×2 (06:16→19:59)
[2023-03-15] MEDS: lisinopril 20 MG TAB PO SCH (07:11)
[2023-03-15] MEDS: amLODIPine BESYLATE 5 MG TAB PO SCH (07:11)
[2023-03-15] MEDS: CLOPIDOGREL BISULFATE 75 MG TAB PO SCH (07:12)
[2023-03-15] MEDS: APIXABAN 5 MG TABLET PO SCH ×2 (07:12→19:59)
[2023-03-15 08:04] LABS: Hematocrit (blood only) 37.3 % (42.0-52.0); Hemoglobin 12.6 g/dl (14.0-18.0); Mean Corpuscular Hemoglobin 31.4 pg (25.0-34.0); Mean Corpuscular Hgb Conc 33.8 g/dL (32.0-36.0); Mean Platelet Volume 9.4 fL (9.4-12.4); Platelet Count 252 K/uL (130-400); RDW Coefficient of Variation 14.5 % (11.5-14.5); RDW Standard Deviation 49.1 fL (36.4-46.3); Red Blood Count 4.01 M/uL (4.70-6.10); White Blood Count 7.02 K/ul (4.8-10.8)
[2023-03-15 08:23] LABS: BUN Creatinine Ratio 16.7 (10-20); Calcium 8.4 mg/dl (8.6-10.3); Creatinine Clr Calc Pharmacy 53.7 ml/min; Est GFR (African American) 72.7 ml/min; Est GFR (Non-African American) 62.7 ml/min; Magnesium 2.1 mg/dl (1.7-2.4); Potassium 3.8 mmol/L (3.5-5.1)
--- NOTE | 2023-03-15 12:01 | Hospitalist Progress Note ---
Date of Service March 15, 2023 Assessment & Plan (1) Nausea, vomiting, and diarrhea: (2) Leukocytosis: Plan: This is an 82-year-old male who presents with nausea and diarrhea and also found to have hypoxia. 1. Nausea, vomiting, diarrhea, most likely gastroenteritis on the CAT scan with questionable rectal wall thickening. WBC 17K -> 10.5K -> 6.6K Stool pcr obtained and negative Supportive care. cont. abx for now as started on admission. GI consulted - suspect he had an acute gastroenteritis and he seems to be getting over it. He has had a drop in his h/h but I suspect a lot of that due to rehydration. He denies passing blood. CT suggests enteritis with fluid filled loops of bowel but also shows "thickened rectum". This could be due to proctitis or underdistension. It could also be due to malignancy. He has no prior CT on his chart to tell if this is an acute issue or not. He doesn't remember when his last colonoscopy was. Colonoscopy could be done but antiplatelet drugs would need to be held. I would not do this under the acute settings as determining if he has chronic proctitis (unlikely) would be difficult versus comparing to acute proctitis. Decision about colonoscopy could be done as an outpatient. Diet advanced, speech eval - plan for video swallow today 2. Hypoxia, possible aspiration. The patient w/ nausea, vomiting. Chest x-ray negative, but requiring oxygen. CT chest obtained and negative. Currently on RA and saturating 93% - patient also has a history of stroke in the past. We will obtain speech evaluation. Empirically started on Unasyn. 3. new onset Afib - overnight -pt started on metoprolol, pt is already on eliquis -cardiology consulted - likely paroxysmal afib - currently pt is in sinus rhythm Echo obtained LV is normal in size. LV systolic function is normal. EF 55 to 60%. RV systolic function is normal. LA size is normal. RA size is normal. Aortic valve sclerosis moderate, without significant aortic valvular stenosis. There is no significant aortic regurg. There is mild tricuspid regurg. Mild pulmonary hypertension with an estimated pulmonary artery pressure of 40 mmHg. 3. History of cerebrovascular accident. On Eliquis, Plavix, statin, continue. 4. Chronic kidney disease stage III. Presently creatinine of 1.1. We will follow the labs. 5. History of PE and DVT, s/p inferior vena cava filter, on Eliquis 6. Hyperlipidemia, on statin. 7. Hypertension, on amlodipine and lisinopril. We will monitor the blood pressure. DVT prophylaxis, on Eliquis. DISPOSITION: med tele. PT/OT prior to discharge. Admission and Anticipated Discharge Date Admission Date: March 11, 2023 Subjective Pt seen in follow up of nausea vomiting, hypoxia - enteritis, possible proctitis/neoplasm developed afib in the hospital - new onset, per cardiology probably pafib. Tele reviewed - now pt is in sinus. Patient is currently sitting up in chair, in no acute distress, currently on room air He is awake alert oriented, able to answer simple questions appropriately Feeling better overall. Patient currently denies any chest pain shortness of breath, fevers chills, denies abdominal pain Currently no nausea Patient seen by GI Yesterday was able to provide stool sample - negative Seen by speech - plan for video swallow today PT/OT Review of Systems Review of Systems: All systems reviewed & are unremarkable except as noted in Subjective Physical Exam Physical Exam: GENERAL: elderly M not in acute distress HEENT: NC/AT. Pupils equal, round and reactive to light. Oral mucosa somewhat dry. NECK: No JVD, no neck masses. CARDIOVASCULAR: S1 and S2 heard. Regular rate and rhythm. No murmur, no gallop. RESPIRATORY: Normal AP diameter. No accessory muscle use. No wheezing, no crackles. ABDOMEN: Soft, bowel sounds present, nontender, no distention. NEURO: Alert and oriented, speaking in low volume and somewhat mumbling. Insight is okay. Obeys simple commands.Moves extremities EXTREMITIES: No edema, no erythema. Results & Data Results & Data Vital Signs (Past 12 Hours) Vital Signs Temp Pulse Pulse Resp BP BP Pulse Ox 03/15/23 11:33 36.9 C 61 16 125/63 95 03/15/23 08:52 55 L 03/15/23 08:08 03/15/23 07:41 36.9 C 54 L 16 146/74 H 94 03/15/23 02:48 36.6 C 71 18 121/75 96 O2 Del Method 03/15/23 11:33 Room Air 03/15/23 08:52 03/15/23 08:08 Room Air 03/15/23 07:41 Room Air 03/15/23 02:48 Room Air Laboratory Results 03/15/23 03/15/23 03/15/23 Range/Units 06:46 06:46 06:46 WBC 7.02 (4.8-10.8) K/ul RBC 4.01 L (4.70-6.10) M/uL Hgb 12.6 L (14.0-18.0) g/dl Hct 37.3 L (42.0-52.0) % MCV 93.0 (80.0-100.0) fL MCH 31.4 (25.0-34.0) pg MCHC 33.8 (32.0-36.0) g/dL RDW Std Deviation 49.1 H (36.4-46.3) fL RDW Coeff of Renan 14.5 (11.5-14.5) % Plt Count 252 (130-400) K/uL MPV 9.4 (9.4-12.4) fL Sodium 143 (136-145) mmol/L Potassium 3.8 (3.5-5.1) mmol/L Chloride 109 H (98-107) mmol/L Carbon Dioxide 29 (21-32) mmol/L Anion Gap 5 (3-11) BUN 18 (6-23) mg/dl Creatinine 1.08 (0.6-1.4) mg/dl Est Cr Clr Drug Dosing 53.7 ml/min Est GFR ( Amer) 72.7 ml/min Est GFR (Non-Af Amer) 62.7 ml/min BUN/Creatinine Ratio 16.7 (10-20) Glucose 82 (70-99(Fasting)) mg/dl Calcium 8.4 L (8.6-10.3) mg/dl Phosphorus 2.4 L (2.5-4.9) mg/dl Magnesium 2.1 (1.7-2.4) mg/dl Medications Administered Current Inpatient Medications Amlodipine Besylate (Amlodipine Besylate 5 Mg Tab) 5 mg PO QAM [facility] Stop: 04/11/23 08:59 Last Admin: 03/15/23 07:11 Dose: 5 mg Apixaban (Apixaban 5 Mg Tablet) 5 mg PO Q12 [facility] Stop: 04/10/23 23:52 Last Admin: 03/15/23 07:12 Dose: 5 mg Clopidogrel Bisulfate (Clopidogrel Bisulfate 75 Mg Tab) [facility] [place] Stop: 04/11/23 08:59 Last Admin: 03/15/23 07:12 Dose: 75 mg Ampicillin Sodium/Sulbactam Sodium 3,000 mg/ Sodium Chloride 108 mls @ 200 mls/hr IV Q6H [facility]; Protocol Stop: 03/19/23 00:00 Last Infusion: 03/15/23 12:09 Dose: Infused Levalbuterol HCl (Levalbuterol 1.25 Mg/3 Ml Neb) 1.25 mg NEB Q4H PRN; Protocol PRN Reason: Shortness Of Breath Or Wheezing Stop: 04/10/23 23:52 Lisinopril (Lisinopril 20 Mg Tab) 20 mg PO [facility] Stop: 04/11/23 08:59 Last Admin: 03/15/23 07:11 Dose: 20 mg Metoprolol Tartrate (Metoprolol Tartrate 25 Mg Tab) 12.5 mg PO BID [facility] Stop: 04/14/23 05:49 Last Admin: 03/15/23 06:16 Dose: 12.5 mg Nitroglycerin (Nitroglycerin Sl 0.4 Mg/Tab Tab) 0.4 mg SL UD PRN PRN Reason: Chest Pain Stop: 04/10/23 23:52 Ondansetron HCl (Ondansetron Inj 2 Mg/Ml 2 Ml Vial) 4 mg IV Q6H PRN PRN Reason: Nausea Stop: 04/10/23 23:52 Last Admin: 03/12/23 20:37 Dose: 4 mg Simvastatin (Simvastatin 20 Mg Tab) 20 mg PO [facility] Stop: 04/10/23 23:52 Last Admin: 03/14/23 21:50 Dose: 20 mg
--- NOTE | 2023-03-15 15:52 | Fluoroscopy Report ---
FL video swallow HISTORY: r/o aspiration TECHNIQUE: Video fluoroscopic evaluation of swallowing was performed in the AP and lateral projection s by the speech pathology staff. The patient is fed nectar-thick and thin liquid barium, a barium coa malissa wafer, and barium pudding. FLUOROSCOPY TIME: 1 minute and 49 seconds. A cine loop submitted. jayden Saldaña; 13.6 mGy COMPARISON STUDY: None. FINDINGS: There is normal hyoid excursion and epiglottic deflection. There is a single episode of tra ce silent aspiration demonstrating with the thin liquid barium during chin tuck maneuver. There are a few episodes of penetration with the thin liquid barium. No aspiration identified with the remaining barium consistencies. IMPRESSION: 1. A single episode of silent aspiration as described above. 2. Please see the speech pathologist report for detailed findings and recommendations. ACT 112: Negative or not required by law. Electronically signed by: Vik Cooley M.D. 03/15/2023 3:50 PM
[2023-03-15] MEDS: SIMVASTATIN 20 MG TAB PO SCH (19:59)
[2023-03-16] MEDS: AMPICILLIN/SULBACTAM SOD 3,000 MG in 0.9 % SODIUM CHLORIDE 100 ML IV SCH ×3 (00:06→12:58)
[2023-03-16] MEDS: amLODIPine BESYLATE 5 MG TAB PO SCH (09:20)
[2023-03-16] MEDS: lisinopril 20 MG TAB PO SCH (09:20)
[2023-03-16] MEDS: CLOPIDOGREL BISULFATE 75 MG TAB PO SCH (09:20)
[2023-03-16] MEDS: METOPROLOL TARTRATE 25 MG TAB PO SCH (09:21)
[2023-03-16] MEDS: APIXABAN 5 MG TABLET PO SCH (09:24)
[2023-03-16 09:47] LABS: Hematocrit (blood only) 38.6 % (42.0-52.0); Hemoglobin 13.1 g/dl (14.0-18.0); Mean Corpuscular Hemoglobin 30.7 pg (25.0-34.0); Mean Corpuscular Hgb Conc 33.9 g/dL (32.0-36.0); Mean Corpuscular Volume 90.4 fL (80.0-100.0); Mean Platelet Volume 9.4 fL (9.4-12.4); Platelet Count 281 K/uL (130-400); RDW Coefficient of Variation 14.4 % (11.5-14.5); RDW Standard Deviation 47.7 fL (36.4-46.3); Red Blood Count 4.27 M/uL (4.70-6.10); White Blood Count 8.22 K/ul (4.8-10.8)
[2023-03-16 10:15] LABS: Calcium 8.4 mg/dl (8.6-10.3); Potassium 3.4 mmol/L (3.5-5.1)
[2023-03-16 10:21] LABS: BUN Creatinine Ratio 17.5 (10-20); Creatinine Clr Calc Pharmacy 59.7 ml/min; Est GFR (African American) 82.7 ml/min; Est GFR (Non-African American) 71.4 ml/min; Phosphorus 2.4 mg/dl (2.5-4.9)
--- NOTE | 2023-03-16 21:15 | Discharge Summary ---
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 Lives at home with her daughter. Was brought in because of vomiting, seems started yesterday and was persistent throughout the day and also nausea and diarrhea and abdominal pain. Currently, the patient says his nausea, abdominal pain, and diarrhea improved. For EMS oxygen saturation 70s and on nasal cannula saturating fine, speaking, seems comfortable, able to understand questions, able to answer questions appropriately. Denies any chest pain. Denies shortness of breath. Says once in a while he gets dry cough. Denies any headache. Had back pain, but that got resolved now. Vision is okay. No sore throat, no runny nose. Says he swallows okay currently. Normal bladder movements. Admission Exam Per Admitting Provider GENERAL: The patient is of moderate build, not in acute distress, but is speaking in mumbling words. VITAL SIGNS: Temperature 37.2, pulse 60, respiratory rate 18, blood pressure 140/60, oxygen 91% on nasal cannula. HEENT: Pupils equal, round and reactive to light. Oral mucosa somewhat dry. NECK: No JVD, no neck masses. CARDIOVASCULAR: S1 and S2 heard. Regular rate and rhythm. No murmur, no gallop. RESPIRATORY SYSTEM: Normal AP diameter. No accessory muscle use. No wheezing, no crackles. ABDOMEN: Soft, bowel sounds present, nontender, no distention. CENTRAL NERVOUS SYSTEM: Alert and oriented, speaking in low volume and mumbling. Insight is okay. Obeys simple commands. Power 5/5 in all extremities except right lower extremity is 3/5. EXTREMITIES: No edema, no erythema. Principal Diagnosis Acute gastroenteritis Discharge Exam General: Sitting comfortably in bed, not in distress, on room air HEENT: EOMI, HEATHER, MMM Chest: Clear breath sounds bilaterally, no wheezes or crackles CVS: Regular rate and rhythm, normal heart sounds, no murmur Abdomen: Soft, non tender, not distended, normal bowel sounds Neuro: Awake, alert, oriented, conversing well, non focal Extremities: No cyanosis, clubbing or edema Discharge Data Allergies Allergy/AdvReac Type Severity Reaction Status Date / Time No Known Allergies Allergy Verified 03/11/23 19:42 Consultations 03/11/23 19:47 ED Decision to Admit Stat 03/12/23 07:47 Consult Gastroenterology Routine 03/14/23 03:26 Consult Cardiology Routine Ordered Studies 03/11/23 17:56 CT abd pelvis wo con Stat 03/11/23 23:53 CT chest without contrast [CT chest diagnostic wo con] Urgent 03/15/23 13:30 Fluoro video [FL video swallow] Routine Laboratory Results WBC 8.22 K/ul (4.8-10.8) 03/16/23 08:41 RBC 4.27 M/uL (4.70-6.10) L 03/16/23 08:41 Hgb 13.1 g/dl (14.0-18.0) L 03/16/23 08:41 Hct 38.6 % (42.0-52.0) L 03/16/23 08:41 MCV 90.4 fL (80.0-100.0) 03/16/23 08:41 MCH 30.7 pg (25.0-34.0) 03/16/23 08:41 MCHC 33.9 g/dL (32.0-36.0) 03/16/23 08:41 RDW Std Deviation 47.7 fL (36.4-46.3) H 03/16/23 08:41 RDW Coeff of Renan 14.4 % (11.5-14.5) 03/16/23 08:41 Plt Count 281 K/uL (130-400) 03/16/23 08:41 MPV 9.4 fL (9.4-12.4) 03/16/23 08:41 Immature Gran % (Auto) 0.6 % 03/12/23 05:48 Neut % (Auto) 84.3 % 03/12/23 05:48 Lymph % (Auto) 5.2 % 03/12/23 05:48 Sullivan % (Auto) 9.6 % 03/12/23 05:48 Eos % (Auto) 0.1 % 03/12/23 05:48 Baso % (Auto) 0.2 % 03/12/23 05:48 Neut # (Auto) 13.39 K/uL (1.40-6.50) H 03/12/23 05:48 Lymph # (Auto) 0.82 K/uL (1.2-3.4) L 03/12/23 05:48 Sullivan # (Auto) 1.52 K/uL (0.11-0.59) H 03/12/23 05:48 Eos # (Auto) 0.01 K/uL (0-0.50) 03/12/23 05:48 Baso # (Auto) 0.03 K/uL (0-0.2) 03/12/23 05:48 Immature Gran # (Auto) 0.09 K/uL (0.01-0.20) 03/12/23 05:48 Sodium 140 mmol/L (136-145) 03/16/23 08:41 Potassium 3.4 mmol/L (3.5-5.1) L 03/16/23 08:41 Chloride 105 mmol/L (98-107) 03/16/23 08:41 Carbon Dioxide 28 mmol/L (21-32) 03/16/23 08:41 Anion Gap 7 (3-11) 03/16/23 08:41 BUN 17 mg/dl (6-23) 03/16/23 08:41 Creatinine 0.97 mg/dl (0.6-1.4) 03/16/23 08:41 Est Cr Clr Drug Dosing 59.7 ml/min 03/16/23 08:41 Est GFR ( Amer) 82.7 ml/min 03/16/23 08:41 Est GFR (Non-Af Amer) 71.4 ml/min 03/16/23 08:41 BUN/Creatinine Ratio 17.5 (10-20) 03/16/23 08:41 Glucose 96 mg/dl (70-99(Fasting)) 03/16/23 08:41 Calcium 8.4 mg/dl (8.6-10.3) L 03/16/23 08:41 Phosphorus 2.4 mg/dl (2.5-4.9) L 03/16/23 08:41 Magnesium 2.0 mg/dl (1.7-2.4) 03/16/23 08:41 Total Bilirubin 0.9 mg/dl (0.2-1.0) 03/11/23 18:01 AST 90 U/L (13-39) H 03/11/23 18:01 ALT 65 U/L (7-52) H 03/11/23 18:01 Alkaline Phosphatase 139 U/L (34-104) H 03/11/23 18:01 Troponin I High Sens 9.4 pg/ml (0-20) 03/11/23 18:01 Total Protein 6.7 gm/dl (6.0-8.3) 03/11/23 18: Albumin 3.9 gm/dl (3.4-5.0) 03/11/23 18: Globulin 2.8 gm/dl (2.5-4.0) 03/11/23 18:01 Albumin/Globulin Ratio 1.4 (0.9-2) 03/11/23 18:01 Lipase 7 U/L (11-82) L 03/11/23 18:01 Urine Color Dark Yellow 03/11/23 19:30 Urine Appearance Clear (Clear) 03/11/23 19:30 Urine pH 5.0 (4.5-7.5) 03/11/23 19:30 Ur Specific [place] 1.033 (1.000-1.030) H 03/11/23 19:30 Urine Protein 2+ (Negative) H 03/11/23 19:30 Urine Glucose (UA) 1+ (Negative) H 03/11/23 19:30 Urine Ketones 1+ (Negative) H 03/11/23 19:30 Urine Blood 3+ (Negative) H 03/11/23 19:30 Urine Nitrite Negative (Negative) 03/11/23 19:30 Urine Bilirubin Negative (Negative) 03/11/23 19:30 Urine Urobilinogen Negative (Negative) 03/11/23 19:30 Ur Leukocyte Esterase Negative (Negative) 03/11/23 19:30 Urine WBC (Auto) 5-10 /hpf (0-5) H 03/11/23 19:30 Urine RBC (Auto) 10-30 /hpf (0-4) H 03/11/23 19:30 U Hyaline Cast (Auto) 10-30 /lpf (0-5) H 03/11/23 19:30 U Epithel Cells (Auto) 5-10 /lpf (0-5) H 03/11/23 19:30 Urine Bacteria (Auto) Negative (Negative) 03/11/23 19:30 Stl C. cayetanensis PCR Not Detected (NotDetected) 03/14/23 10:21 Stool Rotavirus A PCR Not Detected (NotDetected) 03/14/23 10:21 Stl Adenov F 40/41 PCR Not Detected (NotDetected) 03/14/23 10:21 Stool Astrovirus (PCR) Not Detected (NotDetected) 03/14/23 10:21 Stool Campylobacter PCR Not Detected (NotDetected) 03/14/23 10:21 Stl C. diff Tox B Gene Negative Cdiff Gene (Neg) 03/14/23 10:21 Stool Cryptosporidium PCR Not Detected (NotDetected) 03/14/23 10:21 Stl E.coli Shiga Tox PCR Not Detected (NotDetected) 03/14/23 10:21 Stl Enterotoxigenic E PCR Not Detected (NotDetected) 03/14/23 10:21 Stool EPEC (PCR) Not Detected (NotDetected) 03/14/23 10:21 Stool EAEC (PCR) Not Detected (NotDetected) 03/14/23 10:21 Stl E. histolytica PCR Not Detected (NotDetected) 03/14/23 10:21 Stool Giardia Lamblia PCR Not Detected (NotDetected) 03/14/23 10:21 Stool Salmonella PCR Not Detected (NotDetected) 03/14/23 10:21 Stool Sapovirus (PCR) Not Detected (NotDetected) 03/14/23 10:21 Stl P. shigelloides PCR Not Detected (NotDetected) 03/14/23 10:21 Stl Shigella/EIEC PCR Not Detected (NotDetected) 03/14/23 10:21 St Y.enterocolitica PCR Not Detected (NotDetected) 03/14/23 10:21 Stool Vibrio (PCR) Not Detected (NotDetected) 03/14/23 10:21 Stl Vibrio cholerae PCR Not Detected (NotDetected) 03/14/23 10:21 Stl Norovirus GI/GII PCR Not Detected (NotDetected) 03/14/23 10:21 SARS-CoV-2, RNA, NAAT NEGATIVE (NEGATIVE) 03/11/23 Unknown Impressions Abdomen/Pelvis CT 03/11/23 17:56 Exam(s): CT ABDOMEN + PELVIS Without Contrast EXAM: CT Abdomen and Pelvis Without Intravenous Contrast CLINICAL HISTORY: Reason for exam: vomiting, abd pain. TECHNIQUE: Axial computed tomography images of the abdomen and pelvis without intravenous contrast. CTDI is 16.6 mGy and DLP is 844.01 mGy-cm. Automated exposure control was utilized for the study. A dose lowering technique was utilized adhering to the principles of ALARA. COMPARISON: CT abdomen/pelvis on 08/01/2008 FINDINGS: Lung bases: Dependent atelectasis bilaterally. Heart: Trace pericardial fluid. Mild cardiomegaly. Coronary artery and aortic calcifications. ABDOMEN: Liver: Small hypodensities in the liver are too small to definitively characterize. Gallbladder and bile ducts: Unremarkable. No calcified stones. No ductal dilation. Pancreas: Unremarkable. No ductal dilation. Spleen: Unremarkable. No splenomegaly. Adrenals: Nonspecific mild thickening of the left adrenal gland. Kidneys and ureters: Small left renal cyst. No hydronephrosis or stone. Stomach and bowel: Fluid and gas-filled small bowel loops could represent enteritis in the appropriate clinical setting. Wall thickening of the rectum may be secondary to underdistention. Proctitis or neoplasm cannot be excluded. Evaluation of the stomach is limited by underdistention. PELVIS: Appendix: Normal appendix. Bladder: Unremarkable. No stones. Reproductive: Mild prostatomegaly. ABDOMEN and PELVIS: Intraperitoneal space: Unremarkable. No free air. No significant fluid collection. Bones/joints: Scoliosis. Degenerative changes of the spine. No acute fracture. No dislocation. Soft tissues: Unremarkable. Vasculature: Atherosclerotic changes of the vasculature. No aortic aneurysm. IVC filter in place. Lymph nodes: Unremarkable. No enlarged lymph nodes. IMPRESSION: 1. Fluid and gas-filled small bowel loops could represent enteritis in the appropriate clinical setting. 2. Wall thickening of the rectum may be secondary to underdistention. Proctitis or neoplasm cannot be excluded. 3. Mild prostatomegaly. Electronically signed by: Ray Watkins M.D. 03/11/23 19:24 PM Chest X-Ray 03/11/23 18:33 XR chest 1V portable CLINICAL HISTORY: vomiting, hypoxia TECHNIQUE: Single frontal radiograph of the chest was obtained. Comparison: Comparison is made to chest radiograph 05/09/2021 FINDINGS: No lines and tubes are seen. Cardiomegaly is noted. The aortic arch is calcified. Previous seen noted right midlung airspace opacity is less conspicuous on today's exam. There is suggestion of interstitial thickening in the lungs. No evidence of pleural effusion or pneumothorax. IMPRESSION: No evidence of acute abnormalities. ACT 112: Negative or not required by law. Electronically signed by: Dayron Bonilla M.D. 03/11/2023 7:[address] 03/11/23 23:53 Exam(s): CT CHEST Without Contrast EXAM: CT Chest Without Intravenous Contrast CLINICAL HISTORY: Reason for exam: hypoxia, n/v, aspiration?. TECHNIQUE: Axial computed tomography images of the chest without intravenous contrast. CTDI is 8.72 mGy and DLP is 317.03 mGy-cm. Automated exposure control was utilized for the study. A dose lowering technique was utilized adhering to the principles of ALARA. COMPARISON: Dated 05/09/21 FINDINGS: Lungs: There is mild bibasilar pleural scarring. There is some scattered atelectasis. Pleural space: See above. Heart: There is a trace pericardial effusion. There is mild cardiomegaly. There are coronary vascular calcifications. Bones/joints: There are degenerative changes of the thoracic spine. No acute fracture. No dislocation. Soft tissues: Unremarkable. Vasculature: See above. Lymph nodes: Unremarkable. No enlarged lymph nodes. IMPRESSION: No acute findings in the chest. Electronically signed by: Ernesto Francis MD 03/12/23 01:07 AM Videofluoroscopic Swallow 03/15/23 13:30 FL video swallow HISTORY: r/o aspiration TECHNIQUE: Video fluoroscopic evaluation of swallowing was performed in the AP and lateral projections by the speech pathology staff. The patient is fed nectar-thick and thin liquid barium, a barium coated wafer, and barium pudding. FLUOROSCOPY TIME: 1 minute and 49 seconds. A cine loop submitted. jayden Saldaña; 13.6 mGy COMPARISON STUDY: None. FINDINGS: There is normal hyoid excursion and epiglottic deflection. There is a single episode of trace silent aspiration demonstrating with the thin liquid barium during chin tuck maneuver. There are a few episodes of penetration with the thin liquid barium. No aspiration identified with the remaining barium consistencies. IMPRESSION: 1. A single episode of silent aspiration as described above. 2. Please see the speech pathologist report for detailed findings and recommendations. ACT 112: Negative or not required by law. Electronically signed by: Vik Cooley M.D. 03/15/2023 3:50 PM Hospital Course (1) Nausea, vomiting, and diarrhea: (2) Gastroenteritis: Plan This is an 82-year-old male who presents with nausea and diarrhea and also found to have hypoxia. He was found to have gastroenteritis on CT but stool studies were negative. Seen by GI and recommendations noted as below. He was managed conservatively with supportive care and empiric Unasyn due to concern for aspiration pneumonia however CT did not show any pneumonia. Leukocytosis on admission which was likely reactive to his gastroenteritis has resolved. There is no evidence of other infection. Afebrile throughout hospital stay. Urine was negative for UTI. He was evaluated by speech therapy and had videofluoroscopic swallow study done which showed an episode of silent aspiration. Diet modifications and aspiration precautions were provided to patient as per speech therapy recommendations. He has completed 5 days of empiric Unasyn and in absence of evidence of any infection, I do not think he will need further antibiotics. PT/OT recommended home services however patient declined per CM. He is comfortable and stable for discharge home with family. 1. Nausea, vomiting, diarrhea, most likely gastroenteritis on the CAT scan with questionable rectal wall thickening- details above. Stool studies negative. Symptoms completely resolved with supportive care. Tolerating diet without issues. -Seen by GI- suspect he had an acute gastroenteritis and he seems to be getting over it. He has had a drop in his h/h but I suspect a lot of that due to rehydration. He denies passing blood. CT suggests enteritis with fluid filled loops of bowel but also shows "thickened rectum". This could be due to proctitis or underdistension. It could also be due to malignancy. He has no prior CT on his chart to tell if this is an acute issue or not. He doesn't remember when his last colonoscopy was. Colonoscopy could be done but antiplatelet drugs would need to be held. I would not do this under the acute settings as determining if he has chronic proctitis (unlikely) would be difficul t versus comparing to acute proctitis. Decision about colonoscopy could be done as an outpatient. 2. Hypoxia-resolved. Now on room air. Possible aspiration- CT chest negative for pneumonia or aspiration. Completed 5 days of empiric Unasyn. 3. Paroxysmal atrial fibrillation-brief episode for about 12 hours on hospital stay seen in telemetry. Converted to sinus rhythm. Continue low-dose metoprolol 12.5 MG twice daily. Already on Eliquis. Seen by cardiology. Echo- LV is normal in size. LV systolic function is normal. EF 55 to 60%. RV systolic function is normal. LA size is normal. RA size is normal. Aortic valve sclerosis moderate, without significant aortic valvular stenosis. There is no significant aortic regurg. There is mild tricuspid regurg. Mild pulmonary hypertension with an estimated pulmonary artery pressure of 40 mmHg. 3. History of cerebrovascular accident. On Eliquis, Plavix, statin. 4. Chronic kidney disease stage III. Creatinine stable at baseline of around 1. 5. History of PE and DVT, s/p inferior vena cava filter, on Eliquis 6. Hypertension, on amlodipine and lisinopril. Low-dose metoprolol added given his paroxysmal atrial fibrillation. 7. Aspiration- videofluoroscopic swallow study noted a single episode of silent aspiration. recommended aspiration precautions as recommended by [employer]PORT OPERATIONS SPECIALIST. Total Time Total Time Spent Total Time Spent (In Minutes): 38 Discharge Plan Discharge Items Patient Disposition: Home - Self-Care Reason For Visit: N/V, HYPOXIA Discharge Diagnosis: Acute gastroenteritis Activity: Per Instructions section Non-emergency contact: Primary Care Provider Call non-emergency contact if: you have any medication questions, your symptoms worsen and you have a fever Follow-up/Referrals: Tacho Dorsey MD [Primary Care Provider] - (Date & Time 03/22/2023 2:40 PM Provider Manuel Holly MD Department [facility] ) Diet: Regular Diet Texture: Easy to Chew Diet Comment: see below Addtl Attending Provider Instructions: You had gastroenteritis which is resolved You had brief episode of A fib here and we have added metoprolol for the same. Follow up with your family doctor/cardiology Aspiration precautions as below - minced and moist diet with mildly thick liquids - no straws - assistance with meals if needed - mouth care (clean all surfaces of patient's mouth, teeth, cheeks, tongue and pocket before any oral intake and before bed to reduce amount of oral bacteria that can be aspirated in saliva) -Fully alert and upright when eating - Single bites/small sips/slow rate Pending Studies at Discharge: No Stand-Alone Forms: [facility], Smoking Cessation Medications and DC Order Prescriptions: New metoprolol tartrate 25 mg Tablet 12.5 mg PO BID Qty: 60 0RF Continued lisinopril 20 mg tablet 20 mg PO QAM amlodipine 5 mg tablet 5 mg PO QAM simvastatin 20 mg tablet 20 mg PO HS clopidogrel 75 mg tablet 75 mg PO QAM Eliquis 5 mg tablet 5 mg PO Q12H Qty: 60 0RF Discharge Orders: Discharge Order (Routine); Ordered 03/16/23 Ordered By: Luis E Vera/Other Patient Handouts: AFib Admission Data Admit Date/Time: 03/11/23 20:48 Attending Provider: Luis E Ponce Admit Provider: Connor Figueredo Primary Care Provider: Tacho Dorsey Other Providers: Connor Figueredo ; Noble Hillman ; Darin Mcclellan ; Marilee Ojeda ; Lynn Davis ; Ana Manning ; Georgie Metzger ; Deandre Kurtz ; Nathan Castillo ; Moy Moreno ; Alana Owen ; Oleksandr Viera ; Sandy Mckeon ; Kacy Segundo ; Ingrid Nobles ; Betzaida Byers ; Nolan Woods ; Igor Galvin ; Blake Scott ; Berta Mcdowell ; Maria Victoria Osorio Jr ; Berta Edwards ; Figueroa Lee ; Yanick Campbell ; Rafy Mondragon ; Adriel Patel ; Jorge Maravilla ; Teresita Mccain ; Carrol Mccray ; Berta Ramsey ; Ashish Elizabeth ; Fox Tellez Other Interventions: Discharge Summary Assessment (RN) Last Done: 03/16/23 13:55
--- NOTE | 2023-03-17 10:01 | Coding Query ---
Possible aspiration PNA ruled out. CT chest was negative. CODING QUERY To promote full compliance with coding requirements relating to patient care, provider participation is requested in all cases of bottom filler uncertainty. Please assist us with the question(s) below: Coding Question(s): Possible aspiration is documented beginning on the H&P, and, as of the Discharge Summary, there is documentation of, " He was managed conservatively with supportive care and empiric Unasyn due to concern for aspiration pneumonia however CT did not show any pneumonia". It is not clear if the possible aspiration pneumonia was ruled out or if there was treatment for possible aspiration pneumonia. Please specify below, in your clinical opinion, regarding Possible Aspiration Pneumonia: ( ) Possible Aspiration Pneumonia was treated ( ) Possible Aspiration Pneumonia was Ruled-Out ( ) Other: Please Specify Physician's Response(s): Thank you Becki Castle Principal Diagnosis: "that condition established after study, to be chiefly responsible for occasioning the admission of the patient to the hospital for care." Co-Existing Principal Diagnosis: "when two or more diagnoses equally meet the criteria for principal diagnosis as determined by the circumstances of admission, diagnostic work up, and/or therapy provided, and the Alphabetic Index, Tabular List, or another coding guideline does not provide sequencing direction, any one of the diagnoses may be sequenced first." "When the physician has documented what appears to be a current diagnosis in the body of the record, but has not included the diagnosis in the final diagnostic statement, the physician should be asked whether the diagnosis should be added." (Source Coding [facility] 2 QTR90. p3-4) DONOVAN
== END 2023-03-16 13:56 | disposition home or self-care (01) | DRG 392 ==
LOC: ED 17:42 → 2W 20:48 → SUATTDRO 20:48 → 2W 22:27

== ENCOUNTER 2023-06-07 11:50 | Inpatient (IN) ==
--- NOTE | 2023-06-07 12:16 | ED Triage Note ---
Date of Service June 07, 2023 History of Present Illness This patient was briefly evaluated while in triage. An abbreviated physical exam was performed. This patient is a 83-year-old Male who presents to the ED for evaluation of a bone infection of his left great toe. He has had issues with it for about 2 months and has been on oral antibiotics. He had a recent MRI. He was seen by his PCP today and sent here for possible IV antibiotics/admission. Daughter states the toe is purple and has been draining. He denies fevers. He is not diabetic. Physical Exam VITALS: Vitals are noted on the nurse's note and reviewed by myself. GENERAL: This is an 83-year-old male, in no acute distress, well-developed well- nourished. HEART: Regular rate and rhythm without murmurs gallops or rubs. LUNGS: Clear to auscultation bilaterally without wheezes, rales or rhonchi. LEFT FOOT: Toe not visualized, shoe in place in triage. NEURO: Patient was alert and oriented to person place and time. Initial orders for labs and / or imaging were placed and patient was placed in the waiting area until a bed is available. Please see further documentation for the full ED course. MDM / Impression Impression Impression: Osteomyelitis Impression: Osteomyelitis Qualifiers: Osteomyelitis type: unspecified type Osteomyelitis location: foot Laterality: left Qualified Code(s): M86.9 - Osteomyelitis, unspecified
[2023-06-07 13:11] LABS: Basophils # (auto) 0.06 K/uL (0-0.2); Basophils % (auto) 0.7 %; Eosinophils # (auto) 0.09 K/uL (0-0.50); Eosinophils % (auto) 1.1 %; Hematocrit (blood only) 42.8 % (42.0-52.0); Hemoglobin 14.4 g/dl (14.0-18.0); Immature Granulocytes # (auto) 0.05 K/uL (0.01-0.20); Immature Granulocytes % (auto) 0.6 %; Lymphocytes # (auto) 0.92 K/uL (1.2-3.4); Lymphocytes % (auto) 11.1 %; Mean Corpuscular Hgb Conc 33.6 g/dL (32.0-36.0); Mean Corpuscular Volume 92.2 fL (80.0-100.0); Mean Platelet Volume 9.3 fL (9.4-12.4); Monocytes # (auto) 0.55 K/uL (0.11-0.59); Monocytes % (auto) 6.6 %; Neutrophils # (auto) 6.63 K/uL (1.40-6.50); Neutrophils % (auto) 79.9 %; Platelet Count 238 K/uL (130-400); RDW Coefficient of Variation 14.4 % (11.5-14.5); RDW Standard Deviation 48.2 fL (36.4-46.3); Red Blood Count 4.64 M/uL (4.70-6.10)
[2023-06-07 13:38] LABS: Alanine Aminotransferase 13 U/L (7-52); Albumin Globulin Ratio 1.3 (0.9-2); Alkaline Phosphatase 87 U/L (34-104); Anion Gap 8 (3-11); Aspartate Aminotransferase 17 U/L (13-39); BUN Creatinine Ratio 21.9 (10-20); Bilirubin,Total 0.7 mg/dl (0.2-1.0); Blood Urea Nitrogen 21 mg/dl (6-23); Calcium 9.2 mg/dl (8.6-10.3); Carbon Dioxide 26 mmol/L (21-32); Chloride 106 mmol/L (98-107); Est GFR (African American) 83.2 ml/min; Est GFR (Non-African American) 71.8 ml/min; Globulin 3.1 gm/dl (2.5-4.0); Glucose 105 mg/dl (70-99(Fasting)); Sodium 140 mmol/L (136-145); Total Protein 7.1 gm/dl (6.0-8.3)
--- NOTE | 2023-06-07 13:59 | XRay Report ---
XR toe(s) LT min 2V CLINICAL HISTORY: left great toe osteomyelitis TECHNIQUE: 3 views of the left first digit were obtained. Comparison: None available at the time of this dictation. FINDINGS: There is no evidence of erosive change to suggest osteomyelitis. Joint spaces are well-preserved. Sof t tissue swelling is seen about the digit. IMPRESSION: Soft tissue swelling without underlying erosive change to suggest osteomyelitis. ACT 112: Negative or not required by law. Electronically signed by: Dayron Bonilla M.D. 06/07/2023 1:57 PM
[2023-06-07] MEDS ORDERED: CEFEPIME 2,000 MG/20 ML VIAL IV STA (15:45)
[2023-06-07] MEDS ORDERED: VANCOMYCIN HCL 1,500 MG in SODIUM CHLORIDE 0.9% 500 ML IV ONE (15:51)
[2023-06-07] MEDS ORDERED: VANCOMYCIN CONSULT ACTIVE PRN (15:51)
--- NOTE | 2023-06-07 15:55 | History & Physical Report ---
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 L great toe osteomyelitis L great toe cellulitis admit to med/surg pt does not meet SIRS or sepsis criteria blood cultures were obtained obtain MRSA swab - if negative can d/c vanco place on empiric vanco and zosyn Day #1 obtain wound culture consult Dr. Wood - provider made aware of pt presenting with L great toe Osteomyelitis discussed with outpt provider Dr. Ceja who saw patient today. He will have images pushed to [facility] Podiatry review CRP normal, ESR 21 CBC, CMP generally unremarkable and independently interpreted CBC, CMP, Mag ordered for a.m. Atrial Fibrillation continue metoprolol for rate control pt is on apixaban for thrombotic control [id number] (Age, HTN, hx of CVA) will hold tonight dose of apixaban and administer Lovenox 1mg/kg therapeutic dose until determined if procedure warranted/timing Hx of CVA with residual dysarthria, RHP, dysphagia on plavix, apixaban and statin aspiration precautions and minced moist diet Will hold plavix and apixaban now, give one-time dose of therapeutic Lovenox this evening At discharge Plavix likely can be discontinued as there is no indication to be on oral anticoagulation and Plavix as this poses significant bleeding risk in elderly HTN chronic, stable continue amlodipine, lisinopril and metoprolol HLD chronic, stable continue statin CKD-3 chronic stable renal fxn at baseline DVT ppx/hx of PE: Lovenox x 1 dose this evening; will need to reassess in a.m. need to continue therapeutic lovenox or resume eliquis FULL CODE PCP: Dr. Dorsey Dispo: admit to med/surg, likely to need prolonged antibiotics, PT/OT will need ordered when appropriate Pt was seen and examined in collaboration with Dr. Kenney, please see addendum Discussed with Patients Daughter Justa Reyes -[phone] regarding pts c urrent condition, assessment and treatment plan and she agrees with above. She states pt has actually been dealing with this for 2-3 months and she believes it started when he tried to cut his toe nail. No other trauma. He lives her with on one story ranch home and has been doing quite well despite age. Pts daughter wishes for updates from medicine team daily if not in room per her request. History of Present Illness Chief Complaint: L great toe infection, referred by PCP. 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 He has been having L great toe s welling, pain and redness for 1 month. These sx have been worsening. He denies any trauma. Per outpatient epic review patient was placed on Bactrim on 05/05/23 and received an x-ray. At that time x-ray negative for osteomyelitis. Doxycycline was then added to regimen and MRI to toe was ordered due to worsening. Initially he felt like antibiotics helped, but shortly after flared back up again. He was seen in clinic today by Dr. Ceja. MRI was done in outpatient setting on 05/28/2023 with early evidence of osteomyelitis of the first distal phalanx. Due to this finding and clinical concerns for continued cellulitis he was referred to ED. He denies any recent falls. At baseline he walks with a walker/cane. He denies any f/c/s, dizziness, lightheaded, chest pain, sob, n/v/d, abd pain. He does have frequent urination and at night becomes in continent. In ED pt remained hemodynamically stable. He is being admitted due to worsened clinical picture of L great toe and MRI findings concerning for OM. He received broad spectrum antibiotics in ED with vanco and cefepime. Blood cultures were also obtained. Allergies Allergy/AdvReac Type Severity Reaction Status Date / Time No Known Allergies Allergy Verified 03/11/23 19:42 Home Medications Medication Instructions Recorded Confirmed Type amlodipine 5 mg tablet 5 mg PO QAM 10/10/19 06/07/23 History lisinopril 20 mg tablet 20 mg PO QAM 10/10/19 06/07/23 History simvastatin 20 mg tablet 20 mg PO HS 10/10/19 06/07/23 History clopidogrel 75 mg tablet 75 mg PO QAM 12/14/19 06/07/23 History apixaban 5 mg tablet (Eliquis) 5 mg PO Q12H #60 tabs 05/12/21 06/07/23 Rx metoprolol tartrate 25 mg tablet 12.5 mg PO BID #60 tabs 03/16/23 06/07/23 Rx Past Med/Surg History Medical History (Updated 06/07/23 @ 16:14 by Alessandra Camargo PA-C) Atrial fibrillation CKD (chronic kidney disease) stage 3, GFR 30-59 ml/min DVT (deep venous thrombosis) History of CVA (cerebrovascular accident) Hypertension Pulmonary emboli Pulmonary embolism TIA (transient ischemic attack) Surgical History No pertinent past surgical history Family History Other Family history non-contributory Social History Smoking Status: Never smoker Second Hand Exposure: No; Do You Dip or Chew Tobacco: No; Hx Alcohol Use: No Hx Substance Use: No Preferred Language: Trinidadian 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 Ability: Effective Submarine Diver Required: No Beliefs That Will Affect Care: None Current Living Situation: Family Current Living Situation Comment: NO STAIRS, WITH CAT Feels Safe at Home: Yes Assistive Devices: Cane and Walker Review of Systems Review of Systems: All systems reviewed & are unremarkable except as noted in HPI & below Physical Exam Physical Exam: Please refer to DR. Kenney addendum for physical exam findings. Results & Data Results & Data Vital Signs (Past 12 Hours) Vital Signs Temp Pulse Resp BP Pulse Ox O2 Del Method 06/07/23 12:11 36.3 C L 68 18 137/80 98 Room Air Diagnostic Findings Toe X-Ray 06/07/23 12:16 XR toe(s) LT min 2V CLINICAL HISTORY: left great toe osteomyelitis TECHNIQUE: 3 views of the left first digit were obtained. Comparison: None available at the time of this dictation. FINDINGS: There is no evidence of erosive change to suggest osteomyelitis. Joint spaces are well-preserved. Soft tissue swelling is seen about the digit. IMPRESSION: Soft tissue swelling without underlying erosive change to suggest osteomyelitis. ACT 112: Negative or not required by law. Electronically signed by: Dayron Bonilla M.D. 06/07/2023 1:57 PM EXAM: MRI FOOT LEFT W WO CONTRAST HISTORY: big toe infection, Lt COMPARISON: Radiographs 05/06/2023 TECHNIQUE: Multiplanar multisequential MR images of the left forefoot was performed with/without intravenous contrast. FINDINGS: Images are somewhat degraded by motion artifact, limiting evaluation. Bones: Subtle marrow edema in the 1st distal phalanx without confluent T1 hypointense signal, concerning for early osteomyelitis. No additional areas of abnormal marrow signal identified. Mild diffuse osteoarthritic changes. Soft tissues: Diffuse fatty atrophy of the intrinsic musculature of the foot with T2 heterogeneous hyperintense signal, suggestive of neuropathic changes. Diffuse soft tissue edema about the forefoot, compatible with cellulitis. No rim enhancing fluid collections identified to suggest abscess. Soft tissue ulceration along the dorsal aspect of the 1st distal phalanx. IMPRESSION: 1. Findings, as detailed above, concerning for early osteomyelitis of the 1st distal phalanx 2. Diffuse soft tissue edema about the forefoot, compatible with cellulitis. No rim enhancing fluid collection identified to suggest abscess. Medications Administered Medication List Discontinued Medications Cefepime HCl (Maxipime) 2,000 mg in 20 mls @ 5 mls/min IV NOW STA; Protocol Stop: 06/07/23 15:48 Last Admin: 06/07/23 16:06 Dose: 5 mls/min COVID-19 Results Results COVID-19 Adm Lab Results: RBC 4.64 M/uL (4.70-6.10) L 06/07/23 WBC 8.30 K/ul (4.8-10.8) 06/07/23 Hgb 14.4 g/dl (14.0-18.0) 06/07/23 Hct 42.8 % (42.0-52.0) 06/07/23 Plt Count 238 K/uL (130-400) 06/07/23 Neutrophils (%) (Auto) 79.9 % 06/07/23 Lymphocytes (%) (Auto) 11.1 % 06/07/23 Monocytes # (Auto) 0.55 K/uL (0.11-0.59) 06/07/23 Eosinophils # (Auto) 0.09 K/uL (0-0.50) 06/07/23 Immature Granulocyte % (Auto) 0.6 % 06/07/23 Neutrophils # (Auto) 6.63 K/uL (1.40-6.50) H 06/07/23 Lymphocytes # (Auto) 0.92 K/uL (1.2-3.4) L 06/07/23 Monocytes # (Auto) 0.55 K/uL (0.11-0.59) 06/07/23 Eosinophils # (Auto) 0.09 K/uL (0-0.50) 06/07/23 Basophils # (Auto) 0.06 K/uL (0-0.2) 06/07/23 Immature Granulocyte # (Auto) 0.05 K/uL (0.01-0.20) 3 Na 140 mmol/L (136-145) 06/07/23 K 4.0 mmol/L (3.5-5.1) 06/07/23 Cl 106 mmol/L (98-107) 06/07/23 CO2 26 mmol/L (21-32) 06/07/23 Anion Gap 8 (3-11) 06/07/23 BUN 21 mg/dl (6-23) 06/07/23 Creatinine 0.96 mg/dl (0.6-1.4) 06/07/23 BUN/Creatinine Ratio 21.9 (10-20) H 06/07/23 Glucose Level 105 mg/dl (70-99(Fasting)) H 06/07/23 Ca 9.2 mg/dl (8.6-10.3) 06/07/23 Total Bilirubin 0.7 mg/dl (0.2-1.0) 06/07/23 AST/SGOT 17 U/L (13-39) 06/07/23 ALT/SGPT 13 U/L (7-52) 06/07/23 Alkaline Phosphatase 87 U/L (34-104) 06/07/23 Total Protein 7.1 gm/dl (6.0-8.3) 06/07/23 Albumin 4.0 gm/dl (3.4-5.0) 06/07/23 Globulin 3.1 gm/dl (2.5-4.0) 06/07/23 Albumin/Globulin Ratio 1.3 (0.9-2) 06/07/23 CRP < 0.50 mg/dl (0-0.5) 06/07/23 Code Status & VTE Plan Code Status FULL CODE Supervising Physician Co-Signing Physician Notes Sharath seen and discussed the case with the collaborating WYATT. I agree with the above H&P. I have reviewed and confirmed the patients medical history, the findings on physical examination, and the patients diagnosis and treatment plan with Mary Jo SCHNEIDER and agree with the information documented. Mr. Colse is a 83 year old gentleman with history of a fib ([id number] 5), HTN, prior CVA, prior DVT/PE, and HTN who presented due to concerns of osteomyelitis of left great hallux given recent PO abx failure and MRI suggestive of 1st distal phalanx changes. Given high [id number] and prior clot history, will hold eliquis and give dose of therapeutic lovenox as no anticipated procedure, will discuss any procedural management with podiatry and address further temp AC or resumption of DOAC. Given patient on antithrombotic, no indication for continued plavix at this time. Wound cultures from drainage collected, on vanc/zosyn, will tailor appropriately based upon culture. PT/OT when able. (1) Osteomyelitis Laterality: left Osteomyelitis location: foot Osteomyelitis type: unspecified type Qualified Code(s): M86.9 - Osteomyelitis, unspecified
--- NOTE | 2023-06-07 15:58 | Emergency Department Note ---
History of Present Illness General Chief complaint: Toe Injury/Pain Stated complaint: REFERRED BY , LEFT TOE HAS BONE INFECTION Time Seen by Provider: 06/07/23 15:24 History of Present Illness Provider complaint: Left toe infection Onset (ago): month(s) 83-year-old diabetic male on Eliquis presents emergency department for left toe infection. Family reports that his infection has been present for months they have tried outpatient antibiotics but has not helped. Family reports that they can MRI done outpatient which showed a bone infection. Home Medications Medication Instructions Recorded Confirmed Type amlodipine 5 mg tablet 5 mg PO QAM 10/10/19 06/07/23 History lisinopril 20 mg tablet 20 mg PO QAM 10/10/19 06/07/23 History simvastatin 20 mg tablet 20 mg PO HS 10/10/19 06/07/23 History clopidogrel 75 mg tablet 75 mg PO QAM 12/14/19 06/07/23 History apixaban 5 mg tablet (Eliquis) 5 mg PO Q12H #60 tabs 05/12/21 06/07/23 Rx metoprolol tartrate 25 mg tablet 12.5 mg PO BID #60 tabs 03/16/23 06/07/23 Rx Allergies Allergy/AdvReac Type Severity Reaction Status Date / Time No Known Allergies Allergy Verified 03/11/23 19:42 Past Med/Surg History Medical History Atrial fibrillation CKD (chronic kidney disease) stage 3, GFR 30-59 ml/min DVT (deep venous thrombosis) History of CVA (cerebrovascular accident) Hypertension Pulmonary emboli Pulmonary embolism TIA (transient ischemic attack) Surgical History No pertinent past surgical history Family History Other Family history non-contributory Social History Smoking Status: Never smoker Second Hand Exposure: No; Do You Dip or Chew Tobacco: No; Hx Alcohol Use: No Hx Substance Use: No Preferred Language: Persian 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 Ability: Effective Plumbing Designer Required: No Beliefs That Will Affect Care: None Current Living Situation: Family Current Living Situation Comment: NO STAIRS, WITH CAT Feels Safe at Home: Yes Assistive Devices: Cane and Walker Physical Exam Vital Signs Vital Signs - 24 hr 06/07/23 12:11 Temperature 36.3 C L Temperature Source Temporal Artery Scan Pulse Rate 68 Respiratory Rate 18 Respiratory Effort / Characteristics Non-Labored Spontaneous Respiratory Depth Normal Blood Pressure 137/80 Blood Pressure Mean 99 Blood Pressure Position Sitting Pulse Oximetry 98 Oxygen Delivery Method Room Air Sepsis Recent Fever Within 48 Hours No Sepsis New/Unexplained Change in Mental Status N/A Sepsis Action Taken by Nursing No Action Required [facility]: Wound over the left great toe no active bleeding Course Course 1524: The patient was evaluated in room B2. A complete history and physical exam was performed Medical Decision Making Medical Records Attestation: I reviewed the patient's medical records. Outpatient MRI conducted on May 30, 2023 from the [facility] system report was obtained by [employer] physical plant manager. Report read in early osteomyelitis of the first distal phalanx. Laboratory Data Attestation: I reviewed the patient's lab results. 06/07/23 12:38 06/07/23 12:38 Lab Results 06/07/23 06/07/23 06/07/23 Range/Units 12:38 12:38 12:38 WBC 8.30 (4.8-10.8) K/ul RBC 4.64 L (4.70-6.10) M/uL Hgb 14.4 (14.0-18.0) g/dl Hct 42.8 (42.0-52.0) % MCV 92.2 (80.0-100.0) fL MCH 31.0 (25.0-34.0) pg MCHC 33.6 (32.0-36.0) g/dL RDW Std Deviation 48.2 H (36.4-46.3) fL RDW Coeff of Renan 14.4 (11.5-14.5) % Plt Count 238 (130-400) K/uL MPV 9.3 L (9.4-12.4) fL Immature Gran % (Auto) 0.6 % Neut % (Auto) 79.9 % Lymph % (Auto) 11.1 % Payne % (Auto) 6.6 % Eos % (Auto) 1.1 % Baso % (Auto) 0.7 % Neut # (Auto) 6.63 H (1.40-6.50) K/uL Lymph # (Auto) 0.92 L (1.2-3.4) K/uL Payne # (Auto) 0.55 (0.11-0.59) K/uL Eos # (Auto) 0.09 (0-0.50) K/uL Baso # (Auto) 0.06 (0-0.2) K/uL Immature Gran # (Auto) 0.05 (0.01-0.20) K/uL Sodium 140 (136-145) mmol/L Potassium 4.0 (3.5-5.1) mmol/L Chloride 106 (98-107) mmol/L Carbon Dioxide 26 (21-32) mmol/L Anion Gap 8 (3-11) BUN 21 (6-23) mg/dl Creatinine 0.96 (0.6-1.4) mg/dl Est Cr Clr Drug Dosing Not Reportable Est GFR ( Amer) 83.2 ml/min Est GFR (Non-Af Amer) 71.8 ml/min BUN/Creatinine Ratio 21.9 H (10-20) Glucose 105 H (70-99(Fasting)) mg/dl Lactate 1.5 (0.4-2.0) mmol/L Calcium 9.2 (8.6-10.3) mg/dl Total Bilirubin 0.7 (0.2-1.0) mg/dl AST 17 (13-39) U/L ALT 13 (7-52) U/L Alkaline Phosphatase 87 (34-104) U/L Total Protein 7.1 (6.0-8.3) gm/dl Albumin 4.0 (3.4-5.0) gm/dl Globulin 3.1 (2.5-4.0) gm/dl Albumin/Globulin Ratio 1.3 (0.9-2) Imaging Data Radiologist's Impression: Toe X-Ray 06/07/23 12:16 XR toe(s) LT min 2V CLINICAL HISTORY: left great toe osteomyelitis TECHNIQUE: 3 views of the left first digit were obtained. Comparison: None available at the time of this dictation. FINDINGS: There is no evidence of erosive change to suggest osteomyelitis. Joint spaces are well-preserved. Soft tissue swelling is seen about the digit. IMPRESSION: Soft tissue swelling without underlying erosive change to suggest osteomyelitis. ACT 112: Negative or not required by law. Electronically signed by: Dayron Bonilla M.D. 06/07/2023 1:57 PM MDM Narrative Patient was seen during a time of extreme volume and extreme acuity in the emergency department. Nursing triage protocols were initiated and labs were drawn by protocol in the triage area. Outpatient MRI showed osteomyelitis patient will be admitted for antibiotics. Spoke with Alessandra who stated to admit to Dr. Anne Marie Garcia hospitalist Impression & Plan Osteomyelitis Discharge Plan Visit Data Chief Complaint: Toe Injury/Pain Stated Complaint: REFERRED BY , LEFT TOE HAS BONE INFECTION ED Provider: Jeffy Arreola Discharge Problem: Osteomyelitis Patient Disposition: Admitted As Inpatient Forms Stand Alone Forms: My [facility] [employer] Prescriptions Prescriptions: No Action lisinopril 20 mg tablet 20 mg PO QAM amlodipine 5 mg tablet 5 mg PO QAM simvastatin 20 mg tablet 20 mg PO HS clopidogrel 75 mg tablet 75 mg PO QAM Eliquis 5 mg tablet 5 mg PO Q12H Qty: 60 0RF metoprolol tartrate 25 mg Tablet 12.5 mg PO BID Qty: 60 0RF Referrals Referrals: Tacho Dorsey MD [Primary Care Provider] -
[2023-06-07 16:22] LABS: C Reactive Protein < 0.50 mg/dl (0-0.5)
[2023-06-07] MEDS ORDERED: POLYETHYLENE (MIRALAX) 17 GM PACK PO PRN (18:17)
[2023-06-07] MEDS ORDERED: ACETAMINOPHEN 325 MG TAB PO PRN (18:17)
--- NOTE | 2023-06-07 18:39 | Pharmacy Report ---
Pharmacy PK ABX Note - Date of Service June 07, 2023 - Assessment and Plan Selected Entries 06/07/23 12:11 Temperature 36.3 C L Laboratory Tests 06/07/23 06/07/23 12:38 12:38 WBC 8.30 Creatinine 0.96 Est GFR (Non-Af Amer) 71.8 Assessment 83 year old M receiving IV Vancomycin + Zosyn for treatment of Left great toe osteomyelitis & cellulitis. Blood cultures pending. Stage III CKD noted, currently at baseline. Plan Vancomycin * Loading dose: 1500 mg IV x 1 in ER * Maintenance dose: 1500 mg IV every 24 hours starting at 0400 tomorrow * Regimen is predicted to achieve target AUC/SUNG of 400-600 mg/L.hr * Pharmacy has transitioned to AUC monitoring for vancomycin. AUC/SUNG is the preferred PK/PD target and is associated with decreased risk of nephrotoxicity compared to traditional trough targets. * Level to be ordered in 2-3 days Zosyn 4.5g IV x1 over 30 minutes load, then q8h extended interval infusion Pharmacy will continue to follow and will adjust dose/frequency as necessary. Thank you.
[2023-06-07] MEDS ORDERED: PIPERACILLIN/TAZOBACTAM 4.5 GM in DEXTROSE 5% 100 ML IV ONE (19:00)
--- NOTE | 2023-06-07 21:18 | Orthopedic Consultation ---
Date of Consultation June 07, 2023 Assessment & Plan (1) Osteomyelitis: Patient seen at bedside in [facility] ED B-02, evaluated, and treated. Patient has failed out patient PO antibiotics. Reviewed x-rays and x-ray findings. Reviewed out patient MRI findings (+) OM, images unavailable. Awaiting wound culture results. Will continue to monitor. Will consider repeat MRI if symptoms do not resolve. Direct review of images would be helpful. Thank you for allowing me to participate in the care of this Patient. History of Present Illness Attending Physician: Vandana Kenney MD History of Present Illness Patient is an 83-year-old male seen at [facility] ED B-02 for concern of left great toe osteomyelitis. History obtained from Patient and previous documentation. 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 Patient denies trauma. Patient notes great toe swelling, pain and redness for 1 month which has worsen. Per daughter symptoms present for 2-3 months. Per previous documentation Patient was placed on Bactrim on 05/05/23 and received an x-ray. At that time x-ray negative for osteomyelitis. Doxycycline was then added to regimen and MRI to toe was ordered due to worsening. Initially he felt like antibiotics helped, but shortly after flared back up again. He was seen in clinic today by Dr. Ceja. MRI was done in outpatient setting on 05/28/2023 with early evidence of osteomyelitis of the first distal phalanx. Due to this finding and clinical concerns for continued cellulitis he was referred to ED. Allergies Allergy/AdvReac Type Severity Reaction Status Date / Time No Known Allergies Allergy Verified 03/11/23 19:42 Home Medications Medication Instructions Recorded Confirmed Type amlodipine 5 mg tablet 5 mg PO QAM 10/10/19 06/07/23 History lisinopril 20 mg tablet 20 mg PO QAM 10/10/19 06/07/23 History simvastatin 20 mg tablet 20 mg PO HS 10/10/19 06/07/23 History clopidogrel 75 mg tablet 75 mg PO QAM 12/14/19 06/07/23 History apixaban 5 mg tablet (Eliquis) 5 mg PO Q12H #60 tabs 05/12/21 06/07/23 Rx metoprolol tartrate 25 mg tablet 12.5 mg PO BID #60 tabs 03/16/23 06/07/23 Rx Patient History Medical History Atrial fibrillation CKD (chronic kidney disease) stage 3, GFR 30-59 ml/min DVT (deep venous thrombosis) History of CVA (cerebrovascular accident) Hypertension Pulmonary emboli Pulmonary embolism TIA (transient ischemic attack) Surgical History No pertinent past surgical history Family History Other Family history non-contributory Social History Smoking Status: Never smoker Second Hand Exposure: No; Do You Dip or Chew Tobacco: No; Tobacco Cessation Education Requested by Patient: No Hx Alcohol Use: No Hx Substance Use: No Preferred Language: Armenian 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 Ability: slow speec Category Consultant Required: No Beliefs That Will Affect Care: None Current Living Situation: Family Current Living Situation Comment: with daughter Other Information That Helps Us Care for You: No Feels Safe at Home: Yes Safety Concerns: Feels Safe At This Time Assistive Devices: Brace/Splint/Immobilizer, Cane and Walker Review of Systems Review of Systems: All systems reviewed & are unremarkable except as noted in HPI & below Physical Exam Constitutional: cooperative and comfortable Respiratory: normal respiratory effort Musculoskeletal: Extremities: extremities normal to inspection Skin: + wound (Left great toe proximal nail fold minimal serous drainage) Neurologic: moves all extremities (Decreased epicritic sensation) Psychiatric: Orientation: alert and oriented x 3 Results & Data Vital Signs (Past 12 Hours) Vital Signs Temp Pulse Pulse Resp BP BP Pulse Ox 06/07/23 20:00 66 18 132/76 95 06/07/23 19:03 71 16 139/76 98 06/07/23 16:00 72 18 140/93 98 06/07/23 12:11 36.3 C L 68 18 137/80 98 O2 Del Method 06/07/23 20:00 06/07/23 19:03 06/07/23 16:00 Room Air 06/07/23 12:11 Room Air Diagnostic Findings [facility], [place] [phone] XRay Report Patient:RAFAEL SANDY Admit Date:06/07/23 MR#:[id number] Address1:[address] Acct ID:[id number] Address2: Date:1940 [facility] Zip:[place] [address] Age:83 Location:ED Sex:M Room/Bed: Att Phy: Diagnosis:REFERRED BY , LEFT TOE HAS BONE INFECTION Mayra Phy:Tacho Dorsey MD Service Date:06/07/23 [facility] Phy: Interpreting Phy:Dayron Bonilla MDAdmit Phy: Ordering Phy:Melina Etienne PA-C cc: ~ XR toe(s) LT min 2V CLINICAL HISTORY: left great toe osteomyelitis TECHNIQUE: 3 views of the left first digit were obtained. Comparison: None available at the time of this dictation. FINDINGS: There is no evidence of erosive change to suggest osteomyelitis. Joint spaces are well-preserved. Soft tissue swelling is seen about the digit. IMPRESSION: Soft tissue swelling without underlying erosive change to suggest osteomyelitis. ACT 112: Negative or not required by law. Electronically signed by: Dayron Bonilla M.D. 06/07/2023 1:57 PM (1) Osteomyelitis Laterality: left Osteomyelitis location: foot Osteomyelitis type: unspecified type Qualified Code(s): M86.9 - Osteomyelitis, unspecified
[2023-06-07] MEDS ORDERED: ENOXAPARIN 80 MG/0.8 ML SYR SQ ONE (22:00)
[2023-06-07] MEDS: SIMVASTATIN 20 MG TAB PO SCH (22:25)
[2023-06-07] MEDS: METOPROLOL TARTRATE 25 MG TAB PO SCH ×2 (22:25→22:29)
[2023-06-07] MEDS: PIPERACILLIN/TAZOBACTAM 4.5 GM in DEXTROSE 5% 100 ML IV SCH (23:48)
[2023-06-08] MEDS: VANCOMYCIN HCL 1,500 MG in SODIUM CHLORIDE 0.9% 500 ML IV SCH (03:12)
[2023-06-08] MEDS: PIPERACILLIN/TAZOBACTAM 4.5 GM in DEXTROSE 5% 100 ML IV SCH ×3 (06:33→23:30)
[2023-06-08 07:55] LABS: Basophils # (auto) 0.06 K/uL (0-0.2); Eosinophils # (auto) 0.21 K/uL (0-0.50); Eosinophils % (auto) 3.4 %; Hematocrit (blood only) 37.1 % (42.0-52.0); Hemoglobin 12.4 g/dl (14.0-18.0); Immature Granulocytes # (auto) 0.04 K/uL (0.01-0.20); Immature Granulocytes % (auto) 0.6 %; Lymphocytes # (auto) 1.09 K/uL (1.2-3.4); Lymphocytes % (auto) 17.4 %; Mean Corpuscular Hemoglobin 30.7 pg (25.0-34.0); Mean Corpuscular Hgb Conc 33.4 g/dL (32.0-36.0); Mean Corpuscular Volume 91.8 fL (80.0-100.0); Mean Platelet Volume 9.3 fL (9.4-12.4); Monocytes # (auto) 0.52 K/uL (0.11-0.59); Monocytes % (auto) 8.3 %; Neutrophils # (auto) 4.34 K/uL (1.40-6.50); Neutrophils % (auto) 69.3 %; Platelet Count 205 K/uL (130-400); RDW Coefficient of Variation 14.4 % (11.5-14.5); RDW Standard Deviation 48.5 fL (36.4-46.3); Red Blood Count 4.04 M/uL (4.70-6.10); White Blood Count 6.26 K/ul (4.8-10.8)
[2023-06-08 08:16] LABS: Albumin Globulin Ratio 1.3 (0.9-2); Albumin Level 3.3 gm/dl (3.4-5.0); BUN Creatinine Ratio 17.2 (10-20); Bilirubin,Total 0.9 mg/dl (0.2-1.0); Calcium 8.5 mg/dl (8.6-10.3); Creatinine Clr Calc Pharmacy 57.9 ml/min; Est GFR (African American) 80.2 ml/min; Est GFR (Non-African American) 69.2 ml/min; Globulin 2.5 gm/dl (2.5-4.0); Magnesium 2.1 mg/dl (1.7-2.4); Potassium 3.9 mmol/L (3.5-5.1); Total Protein 5.8 gm/dl (6.0-8.3)
[2023-06-08] MEDS: amLODIPine BESYLATE 5 MG TAB PO SCH (11:11)
[2023-06-08] MEDS: lisinopril 20 MG TAB PO SCH (11:11)
[2023-06-08] MEDS: ADVANCED PROBIOTIC 1250 MG CAPSULE PO SCH (11:12)
[2023-06-08] MEDS: APIXABAN 5 MG TABLET PO SCH ×2 (11:14→21:03)
[2023-06-08] MEDS: METOPROLOL TARTRATE 25 MG TAB PO SCH ×2 (11:37→21:02)
--- NOTE | 2023-06-08 15:54 | Hospitalist Progress Note ---
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 L great toe osteomyelitis L great toe cellulitis Admitted to MedSurg unit pt does not meet SIRS or sepsis criteria blood cultures were obtained-negative so far obtain MRSA swab -MRSA swab is negative place on empiric vanco and zosyn Day #2. Will await wound culture sensitivity prior to discontinuing Vanco obtain wound culture-showing Staphylococcus species Will await identification and sensitivity consult Dr. Wood - provider made aware of pt presenting with L great toe Osteomyelitis discussed with outpt provider Dr. Ceja who saw patient today. He will have images pushed to [facility] for Podiatry review CRP normal, ESR 21 CBC, CMP generally unremarkable and independently interpreted CBC, CMP, Mag ordered for a.m.-noted We will continue with the current antibiotic until the wound culture sensitivities back We will do an MRI of the left foot to rule out osteomyelitis Atrial Fibrillation continue metoprolol for rate control pt is on apixaban for thrombotic control [id number] - 5 (Age, HTN, hx of CVA) will hold tonight dose of apixaban and administer Lovenox 1mg/kg therapeutic dose until determined if procedure warranted/timing Apixaban will be continued as the patient is not going to have any surgery Hx of CVA with residual dysarthria, RHP, dysphagia on plavix, apixaban and statin aspiration precautions and minced moist diet Will hold plavix and apixaban now, give one-time dose of therapeutic Lovenox this evening At discharge Plavix likely can be discontinued as there is no indication to be on oral anticoagulation and Plavix as this poses significant bleeding risk in elderly Good idea to discontinue Plavix as long as she is on apixaban HTN chronic, stable continue amlodipine, lisinopril and metoprolol HLD chronic, stable continue statin CKD-3 chronic stable renal fxn at baseline DVT ppx/hx of PE: Lovenox x 1 dose this evening; will need to reassess in a.m. need to continue therapeutic lovenox or resume eliquis FULL CODE PCP: Dr. Dorsey Dispo: admit to med/surg, likely to need prolonged antibiotics, PT/OT will need ordered when appropriate Discussed with Patients Daughter Justa Reyes -[phone] regarding pts current condition, assessment and treatment plan and she agrees with above. She states pt has actually been dealing with this for 2-3 months and she believes it started when he tried to cut his toe nail. No other trauma. He lives her with on one story ranch home and has been doing quite well despite age. Admission and Anticipated Discharge Date Admission Date: June 07, 2023 Subjective 06/08/2023 The patient was seen and examined in medical floor He has been complaining of some pain in the left big toe but denies any other symptoms of fever and or chills, nausea no vomiting Does not have any sweating The pain is worse when putting pressure Review of Systems Review of Systems: All systems reviewed and are unremarkable except as noted below Physical Exam Physical Exam: Lying in bed comfortably Constitutional: well developed, well nourished, + ill appearing and average body habitus Eyes: PERRL, conjunctivae normal, anicteric sclerae ENMT: external ear and nose normal, oropharynx normal Neck: trachea midline, no thyromegaly Respiratory: no respiratory distress Auscultation: + diminished lung sounds and + crackles (Occasional crackles at the bases) Cardiovascular: Rate/Rhythm: regular rate, regular rhythm and + bradycardic Heart Sounds: normal S1, normal S2 and + murmur Extremities: + edema (Trace edema bilaterally) Gastrointestinal (Abdomen): Inspection/Auscultation: normal bowel sounds; abdomen not distended Percussion/Palpation: abdomen soft; abdomen nontender Musculoskeletal: Left big toe is swollen with redness and tenderness. Movement of the toe is minimally painful. Adjoining foot is not inflamed Neurologic: Alert and awake. Very emotional. Generally weak and has residual dysarthria from CVA Lymphatic: no cervical or axillary lymphadenopathy Results & Data Results & Data Vital Signs (Past 12 Hours) Vital Signs Temp Pulse Pulse Resp BP BP Pulse Ox 06/08/23 15:34 36.4 C L 51 L 16 129/73 94 06/08/23 11:36 60 152/69 H 96 06/08/23 08:25 06/08/23 07:42 36.4 C L 55 L 16 134/65 96 O2 Del Method 06/08/23 15:34 Room Air 06/08/23 11:36 Room Air 06/08/23 08:25 Room Air 06/08/23 07:42 Room Air Laboratory Results Short CBC 06/08/23 Range/Units 07:28 WBC 6.26 (4.8-10.8) K/ul Hgb 12.4 L (14.0-18.0) g/dl Hct 37.1 L (42.0-52.0) % Plt Count 205 (130-400) K/uL BMP 06/08/23 07:28 Sodium 140 Potassium 3.9 Chloride 109 H Carbon Dioxide 28 BUN 17 Creatinine 0.99 Glucose 84 Calcium 8.5 L Liver Function 06/08/23 Range/Units 07:28 Total Bilirubin 0.9 (0.2-1.0) mg/dl AST 13 (13-39) U/L ALT 9 (7-52) U/L Alkaline Phosphatase 72 (34-104) U/L Albumin 3.3 L (3.4-5.0) gm/dl Medications Administered Current Inpatient Medications Acetaminophen (Acetaminophen 325 Mg Tab) 650 mg PO Q4H PRN PRN Reason: pain/fever, mild 1-3 Stop: 07/07/23 18:16 Amlodipine Besylate (Amlodipine Besylate 5 Mg Tab) 5 mg PO QAM [facility] Stop: 07/08/23 08:59 Last Admin: 06/08/23 11:11 Dose: 5 mg Apixaban (Apixaban 5 Mg Tablet) 5 mg PO Q12H [facility] Stop: 07/08/23 09:44 Last Admin: 06/08/23 11:14 Dose: 5 mg Piperacillin Sod/Tazobactam (Sod 4.5 gm/ Dextrose) 120 mls @ 30 mls/hr IV Q8H [facility]; Protocol Stop: 06/14/23 13:59 Last Admin: 06/08/23 14:01 Dose: 30 mls/hr Vancomycin HCl 1,500 mg/ (Sodium Chloride) 530 mls @ 200 mls/hr IV Q24H [facility] Stop: 07/20/23 03:59 Last Infusion: 06/08/23 05:51 Dose: Infused Lactobacillus Acidophilus (Advanced Probiotic 1250 Mg Capsule) 2 cap PO DAILY [facility] Stop: 07/08/23 08:59 Last Admin: 06/08/23 11:12 Dose: 2 cap Lisinopril (Lisinopril 20 Mg Tab) 20 mg PO QAM [facility] Stop: 07/08/23 08:59 Last Admin: 06/08/23 11:11 Dose: 20 mg Metoprolol Tartrate (Metoprolol Tartrate 25 Mg Tab) 12.5 mg PO BID [facility] Stop: 07/07/23 20:59 Last Admin: 06/08/23 11:37 Dose: 12.5 mg Miscellaneous Information (Vancomycin Consult Active) 1 each N/A UD PRN PRN Reason: Consult Stop: 07/07/23 15:50 Polyethylene Glycol (Polyethylene (Miralax) 17 Gm Pack) 17 gm PO DAILY PRN PRN Reason: Constipation Stop: 07/07/23 18:16 Simvastatin (Simvastatin 20 Mg Tab) 20 mg PO HS [facility] Stop: 07/07/23 20:59 Last Admin: 06/07/23 22:25 Dose: 20 mg (1) Osteomyelitis Laterality: left Osteomyelitis location: foot Osteomyelitis type: unspecified type Qualified Code(s): M86.9 - Osteomyelitis, unspecified
[2023-06-08] MEDS: SIMVASTATIN 20 MG TAB PO SCH (21:03)
--- NOTE | 2023-06-08 21:41 | Orthopedic Progress Note ---
Date of Service June 08, 2023 Assessment & Plan (1) Osteomyelitis: Plan: Patient seen, evaluated, and treated. Decrease in pain and erythema observed. Patient appears to be responding well to IV abx therapy. At this time no other intervention planned Will continue to monitor. Thank you for allowing me to participate in the care of this Patient. Admission and Anticipated Discharge Date Admission Date: June 07, 2023 Subjective Patient seen at bedside resting comfortably. He notes decrease in pain and reduction of symptoms over past 24 hours. Patient has no complaints. Review of Systems Review of Systems: All systems reviewed & are unremarkable except as noted in Subjective Physical Exam Constitutional: cooperative and comfortable Respiratory: normal respiratory effort Cardiovascular: Vessels: posterior tibial pulses present and dorsalis pedis pulses present Musculoskeletal: Extremities: extremities normal to inspection Skin: + wound (Left great toe proximal nail fold minimal serous drainage) Neurologic: moves all extremities (Decreased epicritic sensation) Psychiatric: Orientation: alert and oriented x 3 Results & Data Vital Signs (Past 12 Hours) Vital Signs Temp Pulse Resp BP Pulse Ox O2 Del Method 06/08/23 20:59 36.4 C L 69 14 132/63 97 Room Air 06/08/23 15:34 36.4 C L 51 L 16 129/73 94 Room Air 06/08/23 11:36 60 152/69 H 96 Room Air (1) Osteomyelitis Laterality: left Osteomyelitis location: foot Osteomyelitis type: unspecified type Qualified Code(s): M86.9 - Osteomyelitis, unspecified
[2023-06-09] MEDS: VANCOMYCIN HCL 1,500 MG in SODIUM CHLORIDE 0.9% 500 ML IV SCH (03:30)
[2023-06-09] MEDS: PIPERACILLIN/TAZOBACTAM 4.5 GM in DEXTROSE 5% 100 ML IV SCH (06:12)
[2023-06-09] MEDS: amLODIPine BESYLATE 5 MG TAB PO SCH (08:10)
[2023-06-09] MEDS: ADVANCED PROBIOTIC 1250 MG CAPSULE PO SCH (08:10)
[2023-06-09] MEDS: APIXABAN 5 MG TABLET PO SCH ×2 (08:11→22:17)
[2023-06-09] MEDS: lisinopril 20 MG TAB PO SCH (08:11)
[2023-06-09] MEDS: METOPROLOL TARTRATE 25 MG TAB PO SCH ×2 (08:23→22:18)
[2023-06-09] MEDS: ceFAZolin 2000MG 2,000 MG/15 ML SYR IV SCH ×2 (14:04→22:18)
--- NOTE | 2023-06-09 17:29 | Hospitalist Progress Note ---
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 L great toe osteomyelitis L great toe cellulitis Admitted to MedSurg unit pt does not meet SIRS or sepsis criteria blood cultures were obtained-negative so far obtain MRSA swab -MRSA swab is negative place on empiric vanco and zosyn Day #2. Will await wound culture sensitivity prior to discontinuing Vanco obtain wound culture-showing Staphylococcus species Will await identification and sensitivity consult Dr. Wood - provider made aware of pt presenting with L great toe Osteomyelitis discussed with outpt provider Dr. Ceja who saw patient today. He will have images pushed to [facility] for Podiatry review CRP normal, ESR 21 CBC, CMP generally unremarkable and independently interpreted CBC, CMP, Mag ordered for a.m.-noted We will continue with the current antibiotic until the wound culture sensitivities back We will do an MRI of the left foot to rule out osteomyelitis Antibiotics have been changed to intravenous cefazolin Atrial Fibrillation continue metoprolol for rate control pt is on apixaban for thrombotic control [id number] - 5 (Age, HTN, hx of CVA) will hold tonight dose of apixaban and administer Lovenox 1mg/kg therapeutic dose until determined if procedure warranted/timing Apixaban will be continued as the patient is not going to have any surgery Rate is controlled and blood pressure on the lower side of normal at 95/50 Hx of CVA with residual dysarthria, RHP, dysphagia on plavix, apixaban and statin aspiration precautions and minced moist diet Will hold plavix and apixaban now, give one-time dose of therapeutic Lovenox this evening At discharge Plavix likely can be discontinued as there is no indication to be on oral anticoagulation and Plavix as this poses significant bleeding risk in elderly Good idea to discontinue Plavix as long as she is on apixaban HTN chronic, stable continue amlodipine, lisinopril and metoprolol HLD chronic, stable continue statin CKD-3 chronic stable renal fxn at baseline DVT ppx/hx of PE: Lovenox x 1 dose this evening; will need to reassess in a.m. need to continue therapeutic lovenox or resume eliquis FULL CODE PCP: Dr. Dorsey Dispo: admit to med/surg, likely to need prolonged antibiotics, PT/OT will need ordered when appropriate Discussed with Patients Daughter Justa Reyes -[phone] regarding pts current condition, assessment and treatment plan and she agrees with above. She states pt has actually been dealing with this for 2-3 months and she believes it started when he tried to cut his toe nail. No other trauma. He lives her with on one story ranch home and has been doing quite well despite age. Discussed with his daughter. Admission and Anticipated Discharge Date Admission Date: June 07, 2023 Subjective 06/08/2023 The patient was seen and examined in medical floor He has been complaining of some pain in the left big toe but denies any other symptoms of fever and or chills, nausea no vomiting Does not have any sweating The pain is worse when putting pressure 06/09/2023 The patient was seen and examined in medical floor He has been feeling much better and the left thumb wound has improved a lot No fever and no chills Review of Systems Review of Systems: All systems reviewed and are unremarkable except as noted below Physical Exam Physical Exam: Lying in bed comfortably Constitutional: well developed, well nourished, + ill appearing and average body habitus Eyes: PERRL, conjunctivae normal, anicteric sclerae ENMT: external ear and nose normal, oropharynx normal Neck: trachea midline, no thyromegaly Respiratory: no respiratory distress Auscultation: + diminished lung sounds and + crackles (Occasional crackles at the bases) Cardiovascular: Rate/Rhythm: regular rate, regular rhythm and + bradycardic Heart Sounds: normal S1, normal S2 and + murmur Extremities: + edema (Trace edema bilaterally) Gastrointestinal (Abdomen): Inspection/Auscultation: normal bowel sounds; abdomen not distended Percussion/Palpation: abdomen soft; abdomen nontender Musculoskeletal: Left thumb redness and swelling has improved a lot Lymphatic: no cervical or axillary lymphadenopathy Results & Data Results & Data Vital Signs (Past 12 Hours) Vital Signs Temp Pulse Resp BP Pulse Ox O2 Del Method 06/09/23 14:12 36.6 C 57 L 16 95/50 L 95 Room Air 06/09/23 07:15 36.3 C L 50 L 16 127/62 95 Room Air Medications Administered Current Inpatient Medications Acetaminophen (Acetaminophen 325 Mg Tab) 650 mg PO Q4H PRN PRN Reason: pain/fever, mild 1-3 Stop: 07/07/23 18:16 Amlodipine Besylate (Amlodipine Besylate 5 Mg Tab) 5 mg PO QAM [facility] Stop: 07/08/23 08:59 Last Admin: 06/09/23 08:10 Dose: 5 mg Apixaban (Apixaban 5 Mg Tablet) 5 mg PO Q12H [facility] Stop: 07/08/23 09:44 Last Admin: 06/09/23 08:11 Dose: 5 mg Cefazolin Sodium (Ancef 2000mg) 2,000 mg in 15 mls @ 3.75 mls/min IV Q8H [facility] Stop: 07/21/23 13:59 Last Admin: 06/09/23 14:04 Dose: 3.75 mls/min Lactobacillus Acidophilus (Advanced Probiotic 1250 Mg Capsule) 2 cap PO DAILY [facility] Stop: 07/08/23 08:59 Last Admin: 06/09/23 08:10 Dose: 2 cap Lisinopril (Lisinopril 20 Mg Tab) 20 mg PO QAM [facility] Stop: 07/08/23 08:59 Last Admin: 06/09/23 08:11 Dose: 20 mg Metoprolol Tartrate (Metoprolol Tartrate 25 Mg Tab) 12.5 mg PO BID [facility] Stop: 07/07/23 20:59 Last Admin: 06/09/23 08:23 Dose: Not Given Polyethylene Glycol (Polyethylene (Miralax) 17 Gm Pack) 17 gm PO DAILY PRN PRN Reason: Constipation Stop: 07/07/23 18:16 Simvastatin (Simvastatin 20 Mg Tab) 20 mg PO HS [facility] Stop: 07/07/23 20:59 Last Admin: 06/08/23 21:03 Dose: 20 mg (1) Osteomyelitis Laterality: left Osteomyelitis location: foot Osteomyelitis type: unspecified type Qualified Code(s): M86.9 - Osteomyelitis, unspecified
[2023-06-09] MEDS: SIMVASTATIN 20 MG TAB PO SCH (22:17)
--- NOTE | 2023-06-10 00:18 | Magnetic Resonance Report ---
Exam(s): MRI LEFT FOOT Without Contrast EXAM: MR Left Lower Extremity Without Intravenous Contrast, Foot CLINICAL HISTORY: Reason for exam: R/O Osteomyelitis left gt Toe. TECHNIQUE: Multiplanar magnetic resonance images of the left foot without intravenous contrast. COMPARISON: No relevant prior studies available. FINDINGS: Subcutaneous edema of the great toe, concerning for cellulitis. Correlate for any plantar ulcer or wound. No fluid collection or abscess. Edema within the great toe distal veins, concerning for early osteomyelitis. No evidence of osteomyelitis of the remaining toes. No metatarsal fracture. No Lisfranc malalignment. Generalized atrophy and edema of the intrinsic foot muscles as well as regional flexor/extensor muscles, correlate for diabetes. Intact base of the fifth metatarsal. IMPRESSION: Great toe cellulitis with osteomyelitis suspected in the distal phalanx of the great toe. No fluid collection or abscess. Electronically signed by: Cisco Taylor MD 06/10/23 00:17 AM
[2023-06-10] MEDS: ceFAZolin 2000MG 2,000 MG/15 ML SYR IV SCH ×3 (05:57→21:58)
[2023-06-10] MEDS: lisinopril 20 MG TAB PO SCH (08:05)
[2023-06-10] MEDS: ADVANCED PROBIOTIC 1250 MG CAPSULE PO SCH (08:06)
[2023-06-10] MEDS: METOPROLOL TARTRATE 25 MG TAB PO SCH ×2 (08:06→20:35)
[2023-06-10] MEDS: amLODIPine BESYLATE 5 MG TAB PO SCH (08:06)
[2023-06-10] MEDS: APIXABAN 5 MG TABLET PO SCH ×2 (09:03→20:35)
--- NOTE | 2023-06-10 17:07 | Hospitalist Progress Note ---
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 L great toe osteomyelitis L great toe cellulitis Blood cultures were obtained-negative so far MRSA swab is negative Previously receiving IV vanco and zosyn but wound culture growing pansensitive Staphylococcus species --> transitioned to intravenous cefazolin Foot MRI with great toe cellulitis with osteomyelitis suspected in the distal phalanx of the great toe Consulted Dr. Wood - discussed option of half-way abx vs removal of proximal aspect of toe with patient this afternoon - he requests a discussion with daughter present as well. Dr. Wood to readdress tomorrow ID consulted for half-way abx recs Atrial Fibrillation Continue metoprolol for rate control pt is on apixaban for thrombotic control [id number] - 5 (Age, HTN, hx of CVA) Apixaban will be continued for now as the patient is not going to have any surgery tomorrow (possible Tuesday or Tuesday, per Dr. Wood), so will need to be held with possible bridging Rate is controlled and blood pressure on the lower side of normal at 95/50 Hx of CVA with residual dysarthria, RHP, dysphagia On plavix, apixaban and statin Aspiration precautions and minced moist diet Plavix discontinued as there is no indication to be on oral anticoagulation and Plavix as this poses significant bleeding risk in elderly HTN chronic, stable continue amlodipine, lisinopril and metoprolol HLD chronic, stable continue statin CKD-3 chronic stable renal fxn at baseline DVT ppx/hx of PE: Roberta FULL CODE PCP: Dr. Dorsey Dispo: admit to med/surg, likely to need prolonged antibiotics, PT/OT will need ordered when appropriate Daughter Justa Reyes -[phone]. He lives her with on one story ranch home and has been doing quite well despite age and family feels equipped to care for him at home at time of discharge. Discussed with his daughter. Discussed plan with daughter and patient at bedside today. Admission and Anticipated Discharge Date Admission Date: June 07, 2023 Supervising Physician Co-Signing Physician Notes Pt seen and examined by myself, Clary Yañez MD on the day of service. Care was coordinated with Romana Abbott PA-C. Please refer to her note for additional information. 83yoM with toe osteomyelitis awaiting surgical evaluation. Tearful on exam, did not want surgery. Denies pain Otherwise as above Subjective Seen and examined in 355-1. No pain from toe but wondering about plan for return home. No additional events or complaints overnight. Denies F/C, lightheadedness, N/V, abdominal pain, dysuria, diarrhea or constipation. Review of Systems Review of Systems: At least ten systems reviewed and negative except as noted in the HPI. Physical Exam Physical Exam: Gen: WD/WN, NAD, sitting in bedside chair, A&Ox3, appears chronically ill HEENT: Normocephalic, atraumatic, conjunctivae moist, sclerae anicteric, mucous membranes moist Lung: Clear to Auscultation bilaterally, no wheezes/rales/rhonchi Heart: Regular rate, regular rhythm, + murmurs, rubs, or gallops Abdomen: Soft, NT, ND +BS x 4 Extremities: + L great toe with erythema, edema, TTP. Some purulent drainage dried out around toenail edges. BLE trace edema Skin: Warm, no rash Results & Data Results & Data Vital Signs (Past 12 Hours) Vital Signs Temp Pulse Resp BP BP Pulse Ox O2 Del Method 06/10/23 15:02 36.9 C 64 16 120/73 98 Room Air 06/10/23 07:47 36.7 C 54 L 16 154/75 H 98 Room Air (1) Osteomyelitis Laterality: left Osteomyelitis location: foot Osteomyelitis type: unspecified type Qualified Code(s): M86.9 - Osteomyelitis, unspecified
[2023-06-10] MEDS: SIMVASTATIN 20 MG TAB PO SCH (20:35)
--- NOTE | 2023-06-10 22:46 | Orthopedic Progress Note ---
Date of Service June 10, 2023 Assessment & Plan (1) Osteomyelitis: Plan: Patient seen, evaluated, and treated. Reviewed recent MRI findings showing (+) OM of left hallux Discussed MRI results with Patient's daughter Justa. Plan for surgical care left hallux amputation. Will plan to discontinue Eliquis. Possible surgical date Tuesday or Tuesday depending on OR availability. Admission and Anticipated Discharge Date Admission Date: June 07, 2023 Subjective Patient seen at bedside resting comfortably. Patient has no complaints. He does defer to daughter for any medical decision making. Review of Systems Review of Systems: All systems reviewed & are unremarkable except as noted in Subjective Physical Exam Constitutional: cooperative and comfortable Respiratory: normal respiratory effort Cardiovascular: Vessels: posterior tibial pulses present and dorsalis pedis pulses present Musculoskeletal: Extremities: extremities normal to inspection Skin: + wound (Left great toe proximal nail fold minimal serous drainage) Neurologic: moves all extremities (Decreased epicritic sensation) Psychiatric: Orientation: alert and oriented x 3 Results & Data Vital Signs (Past 12 Hours) Vital Signs Temp Pulse Resp BP BP Pulse Ox O2 Del Method 06/10/23 20:31 36.5 C 70 16 127/67 98 Room Air 06/10/23 15:02 36.9 C 64 16 120/73 98 Room Air Diagnostic Findings [place], [place] [phone] Magnetic Resonance Report Patient:RAFAEL SANDY Admit Date:06/07/23 MR#:[id number] Address1:[place] [address] Acct ID:[id number] Address2: Date:1940 [facility] Zip:[place] [address] Age:83 Location:3W Sex:M Room/Bed:[facility] Att Phy:Mitchell Marcus MD Diagnosis:C/F OSTEO Mayra Phy:Tacho Dorsey MD Service Date:06/09/23 Fam Phy: Interpreting Phy:Cisco Montoya Phy:Vandana Kenney MD Ordering Phy:Mitchell Marcus MD cc: ~ Exam(s): MRI LEFT FOOT Without Contrast EXAM: MR Left Lower Extremity Without Intravenous Contrast, Foot CLINICAL HISTORY: Reason for exam: R/O Osteomyelitis left gt Toe. TECHNIQUE: Multiplanar magnetic resonance images of the left foot without intravenous contrast. COMPARISON: No relevant prior studies available. FINDINGS: Subcutaneous edema of the great toe, concerning for cellulitis. Correlate for any plantar ulcer or wound. No fluid collection or abscess. Edema within the great toe distal veins, concerning for early osteomyelitis. No evidence of osteomyelitis of the remaining toes. No metatarsal fracture. No Lisfranc malalignment. Generalized atrophy and edema of the intrinsic foot muscles as well as regional flexor/extensor muscles, correlate for diabetes. Intact base of the fifth metatarsal. IMPRESSION: Great toe cellulitis with osteomyelitis suspected in the distal phalanx of the great toe. No fluid collection or abscess. Electronically signed by: Cisco Taylor MD 06/10/23 00:17 AM Dictated:06/10/2316 Transcribed: 06/10/2316 (1) Osteomyelitis Laterality: left Osteomyelitis location: foot Osteomyelitis type: unspecified type Qualified Code(s): M86.9 - Osteomyelitis, unspecified
[2023-06-11] MEDS: ceFAZolin 2000MG 2,000 MG/15 ML SYR IV SCH ×3 (05:20→22:40)
[2023-06-11 06:36] LABS: Hematocrit (blood only) 35.4 % (42.0-52.0); Hemoglobin 11.9 g/dl (14.0-18.0); Mean Corpuscular Hemoglobin 30.9 pg (25.0-34.0); Mean Corpuscular Hgb Conc 33.6 g/dL (32.0-36.0); Mean Corpuscular Volume 91.9 fL (80.0-100.0); Mean Platelet Volume 9.6 fL (9.4-12.4); Platelet Count 203 K/uL (130-400); RDW Coefficient of Variation 14.6 % (11.5-14.5); RDW Standard Deviation 49.2 fL (36.4-46.3); Red Blood Count 3.85 M/uL (4.70-6.10); White Blood Count 6.61 K/ul (4.8-10.8)
[2023-06-11 07:07] LABS: BUN Creatinine Ratio 27.5 (10-20); Calcium 8.4 mg/dl (8.6-10.3); Est GFR (African American) 88.8 ml/min; Est GFR (Non-African American) 76.6 ml/min; Potassium 3.9 mmol/L (3.5-5.1)
[2023-06-11] MEDS: METOPROLOL TARTRATE 25 MG TAB PO SCH ×2 (09:17→20:15)
[2023-06-11] MEDS: ADVANCED PROBIOTIC 1250 MG CAPSULE PO SCH (09:18)
[2023-06-11] MEDS: lisinopril 20 MG TAB PO SCH (09:18)
[2023-06-11] MEDS: amLODIPine BESYLATE 5 MG TAB PO SCH (09:18)
--- NOTE | 2023-06-11 18:10 | Orthopedic Progress Note ---
Date of Service June 11, 2023 Assessment & Plan (1) Osteomyelitis: Plan: Patient seen, evaluated, and treated. Reviewed recent MRI findings showing (+) OM of left hallux Discussed MRI results with Patient's daughter Justa. Plan for surgical care left hallux amputation Tuesday;30 am 06/12/23 Admission and Anticipated Discharge Date Admission Date: June 07, 2023 Subjective Patient seen at bedside resting comfortably. Patient has no complaints. Review of Systems Review of Systems: All systems reviewed & are unremarkable except as noted in Subjective Physical Exam Constitutional: cooperative and comfortable Respiratory: normal respiratory effort Cardiovascular: Vessels: posterior tibial pulses present and dorsalis pedis pulses present Musculoskeletal: Extremities: extremities normal to inspection Skin: + wound (Left great toe proximal nail fold minimal serous drainage) Neurologic: moves all extremities (Decreased epicritic sensation) Psychiatric: Orientation: alert and oriented x 3 Results & Data Vital Signs (Past 12 Hours) Vital Signs Temp Pulse Resp BP Pulse Ox O2 Del Method 06/11/23 15:54 36.3 C L 60 18 117/72 99 Room Air 06/11/23 09:46 38.9 C H 78 18 148/82 H 95 Room Air Diagnostic Findings [place], [place] [phone] Magnetic Resonance Report Patient:RAFAEL SANDY Admit Date:06/07/23 MR#:[id number] Address1:[place] [address] Acct ID:[id number] Address2: Date:1940 [facility] Zip:[place] [address] Age:83 Location:3W Sex:M Room/Bed:[facility] Att Phy:Mitchell Marcus MD Diagnosis:C/F OSTEO Mayra Phy:Tacho Dorsey MD Service Date:06/09/23 [facility] Phy: Interpreting Phy:Cisco Montoya Phy:Vandana Kenney MD Ordering Phy:Mitchell Marcus MD cc: ~ Exam(s): MRI LEFT FOOT Without Contrast EXAM: MR Left Lower Extremity Without Intravenous Contrast, Foot CLINICAL HISTORY: Reason for exam: R/O Osteomyelitis left gt Toe. TECHNIQUE: Multiplanar magnetic resonance images of the left foot without intravenous contrast. COMPARISON: No relevant prior studies available. FINDINGS: Subcutaneous edema of the great toe, concerning for cellulitis. Correlate for any plantar ulcer or wound. No fluid collection or abscess. Edema within the great toe distal veins, concerning for early osteomyelitis. No evidence of osteomyelitis of the remaining toes. No metatarsal fracture. No Lisfranc malalignment. Generalized atrophy and edema of the intrinsic foot muscles as well as regional flexor/extensor muscles, correlate for diabetes. Intact base of the fifth metatarsal. IMPRESSION: Great toe cellulitis with osteomyelitis suspected in the distal phalanx of the great toe. No fluid collection or abscess. Electronically signed by: Cisco Taylor MD 06/10/23 00:17 AM (1) Osteomyelitis Laterality: left Osteomyelitis location: foot Osteomyelitis type: unspecified type Qualified Code(s): M86.9 - Osteomyelitis, unspecified
[2023-06-11] MEDS: SIMVASTATIN 20 MG TAB PO SCH (20:13)
--- NOTE | 2023-06-11 23:37 | Hospitalist Progress Note ---
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 L great toe osteomyelitis L great toe cellulitis Blood cultures were obtained-negative so far MRSA swab is negative Previously receiving IV vanco and zosyn but wound culture growing pansensitive Staphylococcus species --> transitioned to intravenous cefazolin Foot MRI with great toe cellulitis with osteomyelitis suspected in the distal phalanx of the great toe Consulted Dr. Wood - discussed option of prison abx vs removal of proximal aspect of toe with patient this afternoon. Dr. Wood will be surgically amputating in the next day or two. ID consulted for prison abx recs Atrial Fibrillation Continue metoprolol for rate control pt is on apixaban for thrombotic control [id number] - 5 (Age, HTN, hx of CVA) Apixaban will be continued for now as the patient is not going to have any surgery tomorrow (possible Tuesday or Tuesday, per Dr. Wood), so will need to be held with possible bridging Rate is controlled and blood pressure on the lower side of normal at 95/50 Hx of CVA with residual dysarthria, RHP, dysphagia On plavix, apixaban and statin Aspiration precautions and minced moist diet Plavix discontinued as there is no indication to be on oral anticoagulation and Plavix as this poses significant bleeding risk in elderly HTN chronic, stable continue amlodipine, lisinopril and metoprolol HLD chronic, stable continue statin CKD-3 chronic stable renal fxn at baseline DVT ppx/hx of PE: Roberta FULL CODE PCP: Dr. Dorsey Dispo: admit to med/surg, likely to need prolonged antibiotics, PT/OT will need ordered when appropriate Daughter Justa Reyes -[phone]. He lives her with on one story ranch home and has been doing quite well despite age and family feels equipped to care for him at home at time of discharge. Admission and Anticipated Discharge Date Admission Date: June 07, 2023 Subjective Pt with no acute concerns today. Review of Systems Review of Systems: All systems reviewed & are unremarkable except as noted in Subjective Physical Exam Physical Exam: General: Alert. No acute distress Psych: depressed mood and affect, crying in the room Neuro: drooling noted HEENT: NC/AT. CV: RRR, Normal s1, s2. Resp: , no increased effort of breathing Abdomen: Soft, nontender (1) Osteomyelitis Laterality: left Osteomyelitis location: foot Osteomyelitis type: unspec ified type Qualified Code(s): M86.9 - Osteomyelitis, unspecified
[2023-06-12] MEDS: ceFAZolin 2000MG 2,000 MG/15 ML SYR IV SCH ×3 (06:21→21:18)
[2023-06-12 07:17] LABS: Basophils # (auto) 0.07 K/uL (0.00-0.20); Eosinophils # (auto) 0.27 K/uL (0.00-0.50); Hematocrit (blood only) 37.3 % (42.0-52.0); Hemoglobin 12.5 g/dl (14.0-18.0); Immature Granulocytes # (auto) 0.03 K/uL (0.01-0.20); Immature Granulocytes % (auto) 0.4 %; Lymphocytes # (auto) 1.36 K/uL (1.20-3.40); Lymphocytes % (auto) 20.1 %; Mean Corpuscular Hemoglobin 30.6 pg (25.0-34.0); Mean Corpuscular Hgb Conc 33.5 g/dL (32.0-36.0); Mean Corpuscular Volume 91.2 fL (80.0-100.0); Mean Platelet Volume 9.8 fL (9.4-12.4); Monocytes # (auto) 0.58 K/uL (0.11-0.59); Monocytes % (auto) 8.6 %; Neutrophils # (auto) 4.44 K/uL (1.40-6.50); Neutrophils % (auto) 65.9 %; Platelet Count 222 K/uL (130-400); RDW Coefficient of Variation 14.6 % (11.5-14.5); RDW Standard Deviation 48.5 fL (36.4-46.3); Red Blood Count 4.09 M/uL (4.70-6.10); White Blood Count 6.75 K/ul (4.8-10.8)
[2023-06-12] MEDS ORDERED: BUPIVACAINE 0.5 % 5 MG/1 ML MPF 30ML VIAL ONE (07:20)
[2023-06-12] MEDS ORDERED: fentaNYL citrate PF 100 MCG/2 ML VIAL ONE (07:30)
--- NOTE | 2023-06-12 07:31 | Anesthesiology Consultation ---
Date of Service June 12, 2023 History Surgery Operation Date: 06/12/23 07:30 Proposed Procedures p Left Great Toe Amputation(Left) - Harjidner Wood, DPM, MS Height/Weight Height: 6 ft 1 in Weight: 75 kg Allergies Allergy/AdvReac Type Severity Reaction Status Date / Time No Known Allergies Allergy Verified 03/11/23 19:42 Medications Home Medications Medication Instructions Recorded Confirmed Last Taken amlodipine 5 mg tablet 5 mg PO QAM 10/10/19 06/07/23 03/11/23 lisinopril 20 mg tablet 20 mg PO QAM 10/10/19 06/07/23 03/11/23 simvastatin 20 mg tablet 20 mg PO HS 10/10/19 06/07/23 03/10/23 clopidogrel 75 mg tablet 75 mg PO QAM 12/14/19 06/07/23 03/11/23 apixaban 5 mg tablet (Eliquis) 5 mg PO Q12H #60 tabs 05/12/21 06/07/23 03/11/23 08:00 metoprolol tartrate 25 mg tablet 12.5 mg PO BID #60 tabs 03/16/23 06/07/23 Unkn own Active Medications Generic Name Dose Route Start Last Admin Trade Name Freq PRN Reason Stop Dose Admin Amlodipine Besylate 5 mg 06/08/23 09:00 06/11/23 09:18 Amlodipine Besylate 5 Mg Tab PO 07/08/23 08:59 5 mg QAM ELVIRA Administration Apixaban 5 mg 06/08/23 09:45 06/10/23 20:35 Apixaban 5 Mg Tablet PO 07/08/23 09:44 5 mg Q12H ELVIRA Administration Cefazolin Sodium 2,000 mg in 15 mls @ 3.75 mls/min 06/09/23 14:00 06/12/23 06:21 Ancef 2000mg IV 07/21/23 13:59 3.75 mls/min Q8H ELVIRA Administration Lactobacillus Acidophilus 2 cap 06/08/23 09:00 06/11/23 09:18 Advanced Probiotic 1250 Mg Capsule PO 07/08/23 08:59 2 cap DAILY ELVIRA Administration Lisinopril 20 mg 06/08/23 09:00 06/11/23 09:18 Lisinopril 20 Mg Tab PO 07/08/23 08:59 20 mg QAM ELVIRA Administration Metoprolol Tartrate 12.5 mg 06/07/23 21:00 06/11/23 20:15 Metoprolol Tartrate 25 Mg Tab PO 07/07/23 20:59 12.5 mg BID ELVIRA Administration Simvastatin 20 mg 06/07/23 21:00 06/11/23 20:13 Simvastatin 20 Mg Tab PO 07/07/23 20:59 20 mg HS ELVIRA Administration NPO Date Last Intake of Fluids: 06/11/23 Time Last Intake of Fluids: 22:30 Date Last Intake of Solids: 06/11/23 Time Last Intake of Solids: 22:30 Past Medical History Medical History Atrial fibrillation CKD (chronic kidney disease) stage 3, GFR 30-59 ml/min DVT (deep venous thrombosis) History of CVA (cerebrovascular accident) Hypertension Pulmonary emboli Pulmonary embolism TIA (transient ischemic attack) Exercise / Class Metabolic Activity IV < 2 Limit ADL/Bedbound Past Family History Family History Other Family history non-contributory Past Surgical History Surgical History No pertinent past surgical history Past Anesthesia History No Hx of Anesthesia Complications and Difficult Airway History of PONV No Hx of PONV and No Hx of Motion Sickness Social History Smoking Status: Never smoker Do You Dip or Chew Tobacco: No Hx Alcohol Use: No Hx Substance Use: No substance use type: does not use Physical Exam Vital Signs Last Vital Signs Temp 36.6 C 06/12/23 06:54 Pulse 67 06/12/23 06:54 Resp 18 06/12/23 06:54 BP 138/73 06/12/23 06:54 Pulse Ox 95 06/12/23 06:54 O2 Del Method Room Air 06/12/23 06:54 ENMT Mouth: no TMJ abnormality Thyromental Distance: > or= 3.5 Finger Breadths Mallampati Class: II Neck normal visual inspection and trachea midline; neck extension not limited Respiratory normal respiratory effort Auscultation: lungs clear to auscultation bilaterally Cardiovascular Rate/Rhythm: regular rate and regular rhythm Heart Sounds: no murmur Musculoskeletal Spine: normal cervical ROM Extremities: full ROM of extremities Neurologic moves all extremities Psychiatric Orientation: alert and oriented x 3 Testing Laboratory Results 06/12/23 06:44 06/07/23 12:44 Aerobic Blood Culture - Preliminary Blood No growth in Aerobic bottle after 48 hours. Anaerobic Blood Culture - Preliminary No growth in Anaerobic bottle after 48 hours. 06/07/23 12:38 Aerobic Blood Culture - Preliminary Blood No growth in Aerobic bottle after 48 hours. Anaerobic Blood Culture - Preliminary No growth in Anaerobic bottle after 48 hours. 06/07/23 18:36 Gram Stain - Final Toe Wound Culture - Final Staphylococcus aureus Staphylococcus aureus#2
[2023-06-12] MEDS ORDERED: LIDOCAINE 2% 2 ML VIAL/AMP(20MG/ML) INFIL ONE (07:32)
[2023-06-12] MEDS ORDERED: PROPOFOL IV EMULSION 10 MG/ML 20 ML VIAL IV ONE ×4 (07:32→08:04)
[2023-06-12] MEDS ORDERED: ONDANSETRON INJ 2 MG/ML 2 ML VIAL ONE (07:32)
[2023-06-12 07:35] LABS: Albumin Globulin Ratio 1.4 (0.9-2); Albumin Level 3.4 gm/dl (3.4-5.0); Bilirubin,Total 0.5 mg/dl (0.2-1.0); Calcium 8.6 mg/dl (8.6-10.3); Creatinine Clr Calc Pharmacy 59.7 ml/min; Est GFR (African American) 83.2 ml/min; Est GFR (Non-African American) 71.8 ml/min; Globulin 2.4 gm/dl (2.5-4.0); Potassium 3.9 mmol/L (3.5-5.1); Total Protein 5.8 gm/dl (6.0-8.3)
--- NOTE | 2023-06-12 07:35 | History & Physical Bridge Note ---
Date of Service June 12, 2023 History & Physical Bridge Note I have examined the patient, reviewed the History & Physical and in the interval since the performance of the History & Physical I have noted the following changes of clinical significance: no changes noted
[2023-06-12] MEDS ORDERED: ePHEDrine sulfate 50 MG/ML AMP IV PRN (07:37)
[2023-06-12] MEDS ORDERED: ATROPINE SULFATE 0.1 MG/ML 10ML SYR IV PRN (07:37)
[2023-06-12] MEDS ORDERED: ePHEDrine sulfate 50 MG/5 ML SYR ONE (07:56)
[2023-06-12] MEDS ORDERED: ePHEDrine sulfate 50 MG/ML AMP ONE (08:16)
--- NOTE | 2023-06-12 08:39 | Post Operative Brief Note ---
Immediate Post Op Note v1 Date of Surgery June 12, 2023 Pre & Post Diagnosis Operation Date: 06/12/23 07:30 Pre-Op Diagnosis: Osteomyelitis Post-Op Diagnosis: Osteomyelitis I identified the patient and participated in the time-out.: Yes Procedure Operation Date: 06/12/23 07:30 Actual Procedures p Left Great Toe Amputation(Left) - Harjinder Wood DPM, MS Surgeon Harjinder Wood DPM, MS Siebel Architect None Estimated Blood Loss 0 Findings Consistent with Post-Op Diagnosis consistent with pre operative diagnosis Specimens left distal first phalanx bone -pathology left distal first phalanx bone - microbiology
[2023-06-12] MEDS: ADVANCED PROBIOTIC 1250 MG CAPSULE PO SCH (09:57)
[2023-06-12] MEDS: lisinopril 20 MG TAB PO SCH (09:57)
[2023-06-12] MEDS: amLODIPine BESYLATE 5 MG TAB PO SCH (09:57)
[2023-06-12] MEDS: APIXABAN 5 MG TABLET PO SCH ×2 (09:57→21:18)
[2023-06-12] MEDS: METOPROLOL TARTRATE 25 MG TAB PO SCH ×2 (09:58→19:44)
--- NOTE | 2023-06-12 10:23 | Anesthesiology Progress Note ---
Date of Service June 12, 2023 Anesthesia Post Procedure Vital Signs Vital Signs: Temp Pulse Pulse Pulse Resp BP Pulse Ox 06/12/23 10:05 67 14 134/65 97 06/12/23 09:35 36.6 C 63 14 125/64 97 06/12/23 09:15 74 20 117/60 94 06/12/23 09:05 36.5 C 68 15 104/56 L 93 06/12/23 08:55 69 14 108/55 L 98 06/12/23 08:45 36.6 C 66 17 94/51 L 97 06/12/23 06:54 36.6 C 67 18 138/73 95 06/11/23 20:09 36.5 C 72 18 146/71 H 97 06/11/23 15:54 36.3 C L 60 18 117/72 99 O2 Del Method O2 Flow Rate 06/12/23 10:05 Nasal Cannula 2 06/12/23 09:35 Room Air 2 06/12/23 09:15 Nasal Cannula 2 06/12/23 09:05 Room Air 06/12/23 08:55 Oxymask 3 06/12/23 08:45 Oxymask 6 06/12/23 06:54 Room Air 06/11/23 20:09 Room Air 06/11/23 15:54 Room Air Pain Intensity Left Great Toe: Pain Intensity: 0 Transfer of Care Handoff Completed per policy Notes Mental Status: alert / awake / arousable Patient Amnestic to Procedure: Yes Nausea / Vomiting: adequately controlled Pain: adequately controlled Airway Patency, RR, SpO2: stable & adequate BP & HR: stable & adequate Hydration State: stable & adequate Anesthetic Complications: no major complications apparent and Pt Satisfied with anesthetic care
--- NOTE | 2023-06-12 12:27 | Hospitalist Progress Note ---
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 L great toe osteomyelitis L great toe cellulitis Foot MRI with L great toe cellulitis with osteomyelitis suspected in the distal phalanx of the L great toe Pt is POD #0 on 06/12/23, s/p L great toe amputation with Podiatry. Appreciate recs. Blood cultures were obtained on admission-NGTD Toe wound culture from 06/07 growing pansensitive staph aureus, surgical toe wound culture from 06/12 pending. MRSA swab is negative Previously receiving IV vanco and zosyn but wound culture growing pansensitive Staphylococcus species --> transitioned to intravenous cefazolin ID consulted for penitentiary abx recs Atrial Fibrillation Continue metoprolol for rate control pt is on apixaban for thrombotic control [id number] - 5 (Age, HTN, hx of CVA) Apixaban was held on 06/11, has since been resumed post op. Rate is controlled and blood pressure on the lower side of normal at 95/50 Hx of CVA with residual dysarthria, RHP, dysphagia Was previously on plavix, apixaban and statin Aspiration precautions and minced moist diet Plavix discontinued as there is no indication to be on oral anticoagulation and Plavix as this poses significant bleeding risk in elderly HTN chronic, stable continue amlodipine, lisinopril and metoprolol HLD chronic, stable continue statin CKD-3 chronic stable renal fxn at baseline DVT ppx/hx of PE: Roberta FULL CODE PCP: Dr. Dorsey Dispo: d/c rec per podiatry Daughter Justa Reyes -[phone]. He lives her with on one story ranch home and has been doing quite well despite age and family feels equipped to care for him at home at time of discharge. Admission and Anticipated Discharge Date Admission Date: June 07, 2023 Subjective POD#0 today, with L great toe amputation with podiatry. Pt seen post-op, states he has no pain currently. Daughter asking for tray for him to eat lunch. Review of Systems Review of Systems: All systems reviewed & are unremarkable except as noted in Subjective Physical Exam Physical Exam: General: Alert, sitting up in bed. No acute distress Psych: appropriate mood and affect Neuro: drooling noted HEENT: NC/AT. CV: RRR, Normal s1, s2. Resp:breath sounds clear, no increased effort of breathing Abdomen: Soft, nontender Extremities: Boot on LLE Results & Data Results & Data Vital Signs (Past 12 Hours) Vital Signs Temp Pulse Pulse Pulse Resp BP Pulse Ox 06/12/23 11:35 71 14 116/65 97 06/12/23 10:35 78 14 130/74 96 06/12/23 10:05 67 14 134/65 97 06/12/23 09:35 36.6 C 63 14 125/64 97 06/12/23 09:15 74 20 117/60 94 06/12/23 09:05 36.5 C 68 15 104/56 L 93 06/12/23 08:55 69 14 108/55 L 98 06/12/23 08:45 36.6 C 66 17 94/51 L 97 06/12/23 06:54 36.6 C 67 18 138/73 95 O2 Del Method O2 Flow Rate 06/12/23 11:35 Nasal Cannula 2 06/12/23 10:35 Nasal Cannula 2 06/12/23 10:05 Nasal Cannula 2 06/12/23 09:35 Room Air 2 06/12/23 09:15 Nasal Cannula 2 06/12/23 09:05 Room Air 06/12/23 08:55 Oxymask 3 06/12/23 08:45 Oxymask 6 06/12/23 06:54 Room Air (1) Osteomyelitis Laterality: left Osteomyelitis location: foot Osteomyelitis type: unspecified type Qualified Code(s): M86.9 - Osteomyelitis, unspecified
--- NOTE | 2023-06-12 17:49 | Operative Report ---
Post Operative Report Pre & Post Diagnosis Operation Date: 06/12/23 07:30 Pre-Op Diagnosis: Osteomyelitis Left Great Toe Post-Op Diagnosis: Osteomyelitis Left Great Toe I identified the patient and participated in the time-out.: Yes Procedure Operation Date: 06/12/23 07:30 Actual Procedures p Left Great Toe Amputation(Left) - Harjinder Wood DPM, MS Surgeon Harjinder Wood DPM, MS Plant Engineer None Estimated Blood Loss 0 Findings Consistent with Post-Op Diagnosis Consistent with pre operative findings Specimens 1.) Left hallux distal phalanx - pathology 2.) Left hallux distal phalanx - microbiology Description of Procedure History of present illness: Patient is a 83 year old male who is seen for treatment of osteomyelitis of the left first distal phalanx. Patient relates minimal discomfort. All questions answered. Discussed procedure in detail and postoperative recovery. All potential risks, benefits, complications, alternatives, rehab, potential for incomplete relief of symptoms, need for further surgery, DVT, PE, , persistent pain, swelling, scarring, weakness, neurovascular, wound complications and potential for amputations were discussed with patient. Unwanted outcomes such as, but not limited to were reviewed including under correction, overcorrection, return of deformity, infection. All questions were answered. Patient has decided to proceed with procedure as indicated. Preoperative diagnosis: Osteomyelitis left great toe Postoperative diagnosis: same Name of operation: Amputation left great toe Surgeon Dr. Wood Plant Engineer: None Anesthesia: local with monitored anesthesia care Hemostasis: pneumatic ankle tourniquet Estimated blood loss: minimal Procedure in detail: Under mild sedation the patient was brought in the operating room placed on the operating table in supine position. A pneumatic ankle tourniquet was then placed about the patient's left ankle. Following IV sedation local anesthesia was obtained about the left utilizing 15 cc of a one-to-one mixture of 1% lidocaine plain and 0.5% Marcaine plain. The foot was then prepped scrubbed and draped in usual aseptic manner. An Esmarch bandage was utilized to exsanguinate the patient's left foot and the pneumatic ankle tourniquet was then inflated. Attention was then directed to the left great toe. A fishmouth incision was created utilizing a sharp, sterile, #15 blade. The incision which was deepened through subcutaneous tissue using sharp blunt dissection. Care was taken to identify and retract all vital neurovascular structures. All bleeders were ligated and cauterized necessary. The great toe was disarticulated at the left first interphalangeal joint. At this time the left hallux was removed and placed on the back table. The distal portion of the left hallux was sent to pathology. A portion of the first distal phalanx was sent to microbiology. Copious amounts of sterile normal saline were utilized to flush the incision site. The skin was then primarily closed utilizing 3-0 nylon in horizontal suture mattress techniques as well as simple suture closure. Upon completion of the procedure the incision was dressed with Betadine soaked Adaptic followed by sterile compressive dressing consisting of 4 x 4's Laly Kerlix ABD the pneumatic ankle tourniquet was inflated and a prompt hyperemic response was noted to all digits of the left foot. A post operative shoe was then applied. The Patient tolerated the procedure and anesthesia well. He was transferred to recovery room vital signs stable and vascular status intact all toes of the left foot following. Postoperative monitoring the patient will be readmitted to the floor resuming all preoperative orders. I attest to the content of the Intraoperative Record and any orders documented therein. Any exceptions are noted below.
[2023-06-12] MEDS: HYDROmorphone INJ 0.5 MG/0.5 ML SYR IV PRN ×2 (19:39→20:19)
[2023-06-12] MEDS: SIMVASTATIN 20 MG TAB PO SCH (19:44)
[2023-06-12] MEDS: ACETAMINOPHEN 500 MG TAB PO PRN (21:17)
[2023-06-13] MEDS: HYDROmorphone INJ 0.5 MG/0.5 ML SYR IV PRN ×3 (03:38→18:48)
[2023-06-13] MEDS: ACETAMINOPHEN 500 MG TAB PO PRN ×2 (06:26→16:14)
[2023-06-13] MEDS: ceFAZolin 2000MG 2,000 MG/15 ML SYR IV SCH ×3 (06:26→22:18)
[2023-06-13 07:24] LABS: Basophils # (auto) 0.04 K/uL (0.00-0.20); Basophils % (auto) 0.6 %; Eosinophils # (auto) 0.39 K/uL (0.00-0.50); Eosinophils % (auto) 5.9 %; Hemoglobin 11.5 g/dl (14.0-18.0); Immature Granulocytes # (auto) 0.04 K/uL (0.01-0.20); Immature Granulocytes % (auto) 0.6 %; Lymphocytes # (auto) 1.19 K/uL (1.20-3.40); Lymphocytes % (auto) 17.9 %; Mean Corpuscular Hemoglobin 30.7 pg (25.0-34.0); Mean Corpuscular Hgb Conc 32.9 g/dL (32.0-36.0); Mean Corpuscular Volume 93.3 fL (80.0-100.0); Mean Platelet Volume 9.7 fL (9.4-12.4); Monocytes % (auto) 10.6 %; Neutrophils # (auto) 4.27 K/uL (1.40-6.50); Neutrophils % (auto) 64.4 %; Platelet Count 200 K/uL (130-400); RDW Standard Deviation 51.1 fL (36.4-46.3); Red Blood Count 3.75 M/uL (4.70-6.10); White Blood Count 6.63 K/ul (4.8-10.8)
[2023-06-13 07:49] LABS: Albumin Globulin Ratio 1.4 (0.9-2); Albumin Level 3.2 gm/dl (3.4-5.0); BUN Creatinine Ratio 24.8 (10-20); Bilirubin,Total 0.4 mg/dl (0.2-1.0); Calcium 8.5 mg/dl (8.6-10.3); Creatinine Clr Calc Pharmacy 54.6 ml/min; Est GFR (African American) 74.7 ml/min; Est GFR (Non-African American) 64.4 ml/min; Globulin 2.3 gm/dl (2.5-4.0); Potassium 4.1 mmol/L (3.5-5.1); Total Protein 5.5 gm/dl (6.0-8.3)
[2023-06-13] MEDS: APIXABAN 5 MG TABLET PO SCH ×2 (09:10→20:35)
[2023-06-13] MEDS: lisinopril 20 MG TAB PO SCH (09:11)
[2023-06-13] MEDS: amLODIPine BESYLATE 5 MG TAB PO SCH (09:11)
[2023-06-13] MEDS: METOPROLOL TARTRATE 25 MG TAB PO SCH ×2 (09:11→20:35)
[2023-06-13] MEDS: ADVANCED PROBIOTIC 1250 MG CAPSULE PO SCH (09:11)
--- NOTE | 2023-06-13 09:13 | Hospitalist Progress Note ---
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 L great toe osteomyelitis L great toe cellulitis Foot MRI with L great toe cellulitis with osteomyelitis suspected in the distal phalanx of the L great toe Pt is POD #1, s/p L great toe amputation with Podiatry. Blood cultures were obtained on admission-NGTD Toe wound culture from 06/07 growing pansensitive staph aureus, surgical toe wound culture from 06/12 pending. MRSA swab is negative Previously receiving IV vanco and zosyn but wound culture growing pansensitive Staphylococcus species --> transitioned to intravenous cefazolin ID consulted for long-term abx recs, has not seen patient yet. Cont cefazolin Atrial Fibrillation chronic condition, stable. Continue metoprolol for rate control Apixaban was held on 06/11, has since been resumed post op. 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 Dorsey Dispo: per PT/OT recommendations. Bhumi Mustafa DO [facility]ist Admission and Anticipated Discharge Date Admission Date: June 07, 2023 Subjective 83 yo M admitted with L great toe osteomyelitis s/p L great toe amputation on 06/[address] Wood. Today patient reports pain is controlled with current medications He did ambulate to the restroom overnight without significant difficulty but has not been walking around He is tolerating PO and afebrile Denies SOB, chest pain or other issues today Physical Exam Physical Exam: CONSTITUTIONAL: WNWD, vitals as above, generally well-appearing, NAD EYES: normal conjunctivae, no scleral icterus ENT: external ear and nose normal, MMM NECK: trachea midline RESPIRATORY: clear to auscultation bilaterally, no crackles, rales or wheezes, normal respiratory effort CARDIOVASCULAR: regular rate and rhythm, S1 and 2 heard without murmurs, gallops or rubs, no JVD, no peripheral edema CHEST: inspection of chest was normal GASTROINTESTINAL: soft, nontender, ND, no guarding MUSCULOSKELETAL: strength 5/5 throughout, head is normocephalic and atraumatic, SKIN: warm and dry, Left foot wrapped in post op dressing with DAVID wrap and surgical shoe in place. NEUROLOGIC: CN 2-12 grossly intact, no sensory deficit, normal cognition, normal speech, no tremor PSYCHIATRIC: alert cooperative and oriented to person, place and time. Euthymic mood, makes good eye contact, language grossly intact, recent and remote memory grossly intact. Results & Data Results & Data Vital Signs (Past 12 Hours) Vital Signs Temp Pulse Resp BP BP Pulse Ox O2 Del Method 06/13/23 09:08 66 121/66 97 Room Air 06/13/23 07:44 36.4 C L 50 L 14 102/56 L 95 Room Air 06/13/23 03:26 36.8 C 60 18 116/65 96 Room Air 06/12/23 22:38 36.8 C 60 18 94/60 L 96 Room Air Laboratory Results Short CBC 06/13/23 Range/Units 06:39 WBC 6.63 (4.8-10.8) K/ul Hgb 11.5 L (14.0-18.0) g/dl Hct 35.0 L (42.0-52.0) % Plt Count 200 (130-400) K/uL BMP 06/13/23 06:39 Sodium 140 Potassium 4.1 Chloride 107 Carbon Dioxide 31 BUN 26 H Creatinine 1.05 Glucose 84 Calcium 8.5 L Liver Function 06/13/23 Range/Units 06:39 Total Bilirubin 0.4 (0.2-1.0) mg/dl AST 12 L (13-39) U/L ALT 4 L (7-52) U/L Alkaline Phosphatase 64 (34-104) U/L Albumin 3.2 L (3.4-5.0) gm/dl Medications Administered Current Inpatient Medications Acetaminophen (Acetaminophen 500 Mg Tab) 1,000 mg PO Q8H PRN PRN Reason: Mild/Mod Pain ( 1-6) OR fever Stop: 07/07/23 18:16 Last Admin: 06/13/23 06:26 Dose: 1,000 mg Amlodipine Besylate (Amlodipine Besylate 5 Mg Tab) 5 mg PO QAM [facility] Stop: 07/08/23 08:59 Last Admin: 06/13/23 09:11 Dose: 5 mg Apixaban (Apixaban 5 Mg Tablet) 5 mg PO Q12H [facility] Stop: 07/08/23 09:44 Last Admin: 06/13/23 09:10 Dose: 5 mg Hydromorphone HCl (Hydromorphone Inj 0.5 Mg/0.5 Ml Syr) 0.25 mg IV Q6H PRN PRN Reason: Severe Pain (Scale 7, 8, 9,10) Stop: 06/26/23 19:08 Last Admin: 06/13/23 03:38 Dose: 0.25 mg Cefazolin Sodium (Ancef 2000mg) 2,000 mg in 15 mls @ 3.75 mls/min IV Q8H [facility] Stop: 07/21/23 13:59 Last Admin: 06/13/23 06:26 Dose: 3.75 mls/min Lactobacillus Acidophilus (Advanced Probiotic 1250 Mg Capsule) 2 cap PO DAILY [facility] Stop: 07/08/23 08:59 Last Admin: 06/13/23 09:11 Dose: 2 cap Lisinopril (Lisinopril 20 Mg Tab) 20 mg PO QAM [facility] Stop: 07/08/23 08:59 Last Admin: 06/13/23 09:11 Dose: 20 mg Metoprolol Tartrate (Metoprolol Tartrate 25 Mg Tab) 12.5 mg PO BID [facility] Stop: 07/07/23 20:59 Last Admin: 06/13/23 09:11 Dose: 12.5 mg Polyethylene Glycol (Polyethylene (Miralax) 17 Gm Pack) 17 gm PO DAILY PRN PRN Reason: Constipation Stop: 07/07/23 18:16 Simvastatin (Simvastatin 20 Mg Tab) 20 mg PO HS [facility] Stop: 07/07/23 20:59 Last Admin: 06/12/23 19:44 Dose: 20 mg (1) Osteomyelitis Laterality: left Osteomyelitis location: foot Osteomyelitis type: unspecified type Qualified Code(s): M86.9 - Osteomyelitis, unspecified
[2023-06-13] MEDS: SIMVASTATIN 20 MG TAB PO SCH (20:34)
--- NOTE | 2023-06-13 22:21 | Orthopedic Progress Note ---
Date of Service June 13, 2023 Assessment & Plan (1) Osteomyelitis: Plan: Patient seen, evaluated, and treated. Patient status post day #1 Left hallux amputation (DOS 06/12/23) Dressing clean, dry, and intact. Dry, sterile, dressing, change with out incident. Patient is weight bearing as tolerated with use of surgical shoe. Awaiting final cultures. Admission and Anticipated Discharge Date Admission Date: June 07, 2023 Subjective Patient seen at bedside resting comfortably. Patient is status post day#1 Left great toe amputation. He relates no current pain or discomfort. Review of Systems Review of Systems: All systems reviewed & are unremarkable except as noted in Subjective Physical Exam Constitutional: cooperative and comfortable Respiratory: normal respiratory effort Cardiovascular: Vessels: posterior tibial pulses present and dorsalis pedis pulses present Musculoskeletal: Extremities: extremities normal to inspection Skin: + incision (sutures intact.) Neurologic: moves all extremities (Decreased epicritic sensation) Psychiatric: Orientation: alert and oriented x 3 Results & Data Vital Signs (Past 12 Hours) Vital Signs Temp Pulse Resp BP BP Pulse Ox O2 Del Method 06/13/23 20:31 36.7 C 66 18 131/71 95 Room Air 06/13/23 15:34 36.7 C 59 L 16 110/67 98 Room Air 06/13/23 11:52 36.8 C 56 L 18 102/61 98 Room Air (1) Osteomyelitis Laterality: left Osteomyelitis location: foot Osteomyelitis type: unspecified type Qualified Code(s): M86.9 - Osteomyelitis, unspecified
[2023-06-14] MEDS: ceFAZolin 2000MG 2,000 MG/15 ML SYR IV SCH ×3 (05:48→22:28)
[2023-06-14 08:10] LABS: Hematocrit (blood only) 35.9 % (42.0-52.0); Hemoglobin 11.9 g/dl (14.0-18.0); Mean Corpuscular Hemoglobin 30.9 pg (25.0-34.0); Mean Corpuscular Hgb Conc 33.1 g/dL (32.0-36.0); Mean Corpuscular Volume 93.2 fL (80.0-100.0); Mean Platelet Volume 10.1 fL (9.4-12.4); Platelet Count 201 K/uL (130-400); RDW Coefficient of Variation 14.6 % (11.5-14.5); RDW Standard Deviation 49.2 fL (36.4-46.3); Red Blood Count 3.85 M/uL (4.70-6.10)
[2023-06-14 08:27] LABS: BUN Creatinine Ratio 24.2 (10-20); Calcium 8.7 mg/dl (8.6-10.3); Est GFR (African American) 88.8 ml/min; Est GFR (Non-African American) 76.6 ml/min
[2023-06-14] MEDS: METOPROLOL TARTRATE 25 MG TAB PO SCH ×2 (08:38→22:11)
[2023-06-14] MEDS: lisinopril 20 MG TAB PO SCH (08:39)
[2023-06-14] MEDS: amLODIPine BESYLATE 5 MG TAB PO SCH (08:39)
[2023-06-14] MEDS: ADVANCED PROBIOTIC 1250 MG CAPSULE PO SCH (08:39)
[2023-06-14] MEDS: APIXABAN 5 MG TABLET PO SCH ×2 (08:39→22:10)
[2023-06-14] MEDS: ACETAMINOPHEN 500 MG TAB PO PRN (08:40)
--- NOTE | 2023-06-14 10:38 | Infectious Disease Consult ---
Date of Consultation June 14, 2023 Assessment & Plan Plan Patient who presented with painful swelling to left great toe for which he had been treated with bactrim and doxycycline as OP .He was evaluated by orthopedics and taken to the OR for amputation of his left great toe and wound cultures growing MSSA for which he is on ancef .If source control has not been acheived would recommend 6 weeks of ancef .Thank you for allowing us to participate in the care of this patient ID will sign off Consultation Information Consultation was provided via telemedicine using two-way real-time interactive telecommunication between the patient and the telemedicine provider. For the duration of the visit, the provider was performing the assessment from a different facility than the patient. This includesuse of bluetooth stethoscope forauscultationperformed by the telepresenter that the telemedicine provider can hear if described in the physical exam. [employer] Builder contact information: Please call [facility] . 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 Patient noted great toe swelling, pain and redness for 1 month which has worsen. Per daughter symptoms were present for 2-3 months.He had been placed on Bactrim on 05/05/23 and received an x-ray. At that time x-ray negative for osteomyelitis.Doxycycline was later added to regimen and MRI to toe was ordered due to lack of improvement.He was seen in clinic by Dr. Ceja and a MRI was done in outpatient setting on 05/28/2023 with early evidence of osteomyelitis of the first distal phalanx. Due to this finding and clinical concerns for continued cellulitis he was referred to ED.He was evaluated by orthopedics and taken to the OR for amputation of left great toe .His wound cultures have grown staph aureus and he is on cefazolin Allergies Allergy/AdvReac Type Severity Reaction Status Date / Time No Known Allergies Allergy Verified 03/11/23 19:42 Home Medications Medication Instructions Recorded Confirmed Type amlodipine 5 mg tablet 5 mg PO QAM 10/10/19 06/07/23 History lisinopril 20 mg tablet 20 mg PO QAM 10/10/19 06/07/23 History simvastatin 20 mg tablet 20 mg PO 10/10/19 06/07/23 History clopidogrel 75 mg tablet 75 mg PO QAM 12/14/19 06/07/23 History apixaban 5 mg tablet (Eliquis) 5 mg PO Q12H #60 tabs 05/12/21 06/07/23 Rx metoprolol tartrate 25 mg tablet 12.5 mg PO BID #60 tabs 03/16/23 06/07/23 Rx Patient History Medical History Atrial fibrillation CKD (chronic kidney disease) stage 3, GFR 30-59 ml/min DVT (deep venous thrombosis) History of CVA (cerebrovascular accident) Hypertension Pulmonary emboli Pulmonary embolism TIA (transient ischemic attack) Surgical History No pertinent past surgical history Family History Other Family history non-contributory Social History Smoking Status: Never smoker Second Hand Exposure: No; Do You Dip or Chew Tobacco: No; Tobacco Cessation Education Requested by Patient: No Hx Alcohol Use: No Hx Substance Use: No Preferred Language: Albanian 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 Ability: Effective Magnetic Prospecting Operator Required: No Beliefs That Will Affect Care: None Current Living Situation: Family Current Living Situation Comment: with daughter Other Information That Helps Us Care for You: No Feels Safe at Home: Yes Safety Concerns: Feels Safe At This Time Assistive Devices: Cane and Walker Results & Data Vital Signs (Past 12 Hours) Vital Signs Temp Pulse Resp BP Pulse Ox O2 Del Method 06/14/23 08:31 36.8 C 77 17 147/71 H 93 Room Air 06/14/23 07:53 Room Air Diagnostic Findings S aureus RX M.I.C. --- --------- Clindamycin S <=0.5 Daptomycin S 1 Erythromycin S <=0.5 Oxacillin S 0.5 Tetracycline S <=4 Trimeth/Sulfa S <=0.5/9.5 Vancomycin S 2 S = SENSITIVE I = INTERMEDIATE R = RESISTANT
--- NOTE | 2023-06-14 16:13 | Hospitalist Progress Note ---
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 L great toe osteomyelitis L great toe cellulitis Foot MRI with L great toe cellulitis with osteomyelitis suspected in the distal phalanx of the L great toe Pt is POD #2, s/p L great toe amputation with Podiatry. Blood cultures were obtained on admission-NGTD Toe wound culture from 06/07 growing pansensitive staph aureus, surgical toe wound culture from 06/12 MSSA MRSA swab is negative Previously receiving IV vanco and zosyn but wound culture growing pansensitive Staphylococcus species --> transitioned to intravenous cefazolin ID consult appreciated - 6 weeks of IV Cefazolin required will obtain consent for PICC Placement, discussed with IV team who states we do not need to hold apixaban PICC LINE consent was obtained from the patient at bedside along side nurse Nuha Temple, as delegated by Dr. Mustafa. Risks and benefits were explained. All questions were answered, and the patient was offered the opportunity to discuss with attending physician and declined. CBC, BMP independently reviewed by myself Atrial Fibrillation chronic condition, stable. Continue metoprolol for rate control Apixaban was held on 06/11, has since been resumed post op. 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 Dorsey Dispo: per PT/OT recommends Rehab, will obtain PICC line and discuss with CM regarding rehab placement for IV antibiotic therapy and continued rehab service vs D/C to home, pt hopeful for d/c home Pt was seen and examined in collaboration with Dr. Mustafa, please see addendum Admission and Anticipated Discharge Date Admission Date: June 07, 2023 Supervising Physician Co-Signing Physician Notes I have seen and examined the patient and have discussed the case with the provider above. I agree with the assessment and plan as stated. Doing well with pain and no other issues. Reports that surgery evaluated the wound and rewrapped it last night. Appears to be heaing well. worked with therapy today. Tolerating PO. Per ID needs 6 weeks IV cefazolin. PICC ordered. Will need home health setup via case managmenet. He is hemodynamically stable and afebrile and mentating at his baseline. Cont management as otherwise stated above. DO Ramsey Subjective Patient seen and examined in 355 -1. Follow-up left great toe osteomyelitis. He does complain of mild left foot discomfort but otherwise denies significant pain. He offers no acute concerns. He denies fever, chills, sweats, lightheadedness, dizziness, chest pain, shortness of breath, nausea, vomiting, abdominal pain. Appetite has been stable. Review of Systems Review of Systems: All systems reviewed & are unremarkable except as noted in HPI & below Physical Exam Physical Exam: Gen: WD/WN, M, elderly, sitting up in bedside chair, NAD, A&O x3 HEENT: Normocephalic, atraumatic, conjunctivae moist, sclerae anicteric, mucous membranes moist. +dentures that are loose fitting Lung: Clear to Auscultation bilaterally, no wheezes/rales/rhonchi Heart:RR, S1/S2, no rubs/gallops Abdomen: Soft, NT, ND +BS x 4 Extremities:L foot dressing in place, NVI distally Skin: Warm, no rash, negative turgor. Results & Data Results & Data Vital Signs (Past 12 Hours) Vital Signs Temp Pulse Resp BP Pulse Ox O2 Del Method 06/14/23 08:31 36.8 C 77 17 147/71 H 93 Room Air 06/14/23 07:53 Room Air Laboratory Results Short CBC 06/14/23 Range/Units 07:23 WBC 6.70 (4.8-10.8) K/ul Hgb 11.9 L (14.0-18.0) g/dl Hct 35.9 L (42.0-52.0) % Plt Count 201 (130-400) K/uL [facility] 06/14/23 07:23 Sodium 140 Potassium 4.0 Chloride 105 Carbon Dioxide 31 BUN 22 Creatinine 0.91 Glucose 86 Calcium 8.7 Medications Administered Current Inpatient Medications Acetaminophen (Acetaminophen 500 Mg Tab) 1,000 mg PO Q8H PRN PRN Reason: Mild/Mod Pain ( 1-6) OR fever Stop: 07/07/23 18:16 Last Admin: 06/14/23 08:40 Dose: 1,000 mg Amlodipine Besylate (Amlodipine Besylate 5 Mg Tab) 5 mg PO QAM [facility] Stop: 07/08/23 08:59 Last Admin: 06/14/23 08:39 Dose: 5 mg Apixaban (Apixaban 5 Mg Tablet) 5 mg PO Q12H [facility] Stop: 07/08/23 09:44 Last Admin: 06/14/23 08:39 Dose: 5 mg Hydromorphone HCl (Hydromorphone Inj 0.5 Mg/0.5 Ml Syr) 0.25 mg IV Q6H PRN PRN Reason: Severe Pain (Scale 7, 8, 9,10) Stop: 06/26/23 19:08 Last Admin: 06/13/23 18:48 Dose: 0.25 mg Cefazolin Sodium (Ancef 2000mg) 2,000 mg in 15 mls @ 3.75 mls/min IV Q8H [facility] Stop: 07/21/23 13:59 Last Admin: 06/14/23 14:02 Dose: 3.75 mls/min Lactobacillus Acidophilus (Advanced Probiotic 1250 Mg Capsule) 2 cap PO DAILY [facility] Stop: 07/08/23 08:59 Last Admin: 06/14/23 08:39 Dose: 2 cap Lisinopril (Lisinopril 20 Mg Tab) 20 mg PO QAM [facility] Stop: 07/08/23 08:59 Last Admin: 06/14/23 08:39 Dose: 20 mg Metoprolol Tartrate (Metoprolol Tartrate 25 Mg Tab) 12.5 mg PO BID [facility] Stop: 07/07/23 20:59 Last Admin: 06/14/23 08:38 Dose: 12.5 mg Polyethylene Glycol (Polyethylene (Miralax) 17 Gm Pack) 17 gm PO DAILY PRN PRN Reason: Constipation Stop: 07/07/23 18:16 Simvastatin (Simvastatin 20 Mg Tab) 20 mg PO HS [facility] Stop: 07/07/23 20:59 Last Admin: 06/13/23 20:34 Dose: 20 mg (1) Osteomyelitis Laterality: left Osteomyelitis location: foot Osteomyelitis type: unspecified type Qualified Code(s): M86.9 - Osteomyelitis, unspecified
[2023-06-14] MEDS: SIMVASTATIN 20 MG TAB PO SCH (22:11)
[2023-06-15] MEDS: ceFAZolin 2000MG 2,000 MG/15 ML SYR IV SCH ×3 (05:40→21:13)
[2023-06-15] MEDS: amLODIPine BESYLATE 5 MG TAB PO SCH (09:38)
[2023-06-15] MEDS: ADVANCED PROBIOTIC 1250 MG CAPSULE PO SCH (09:39)
[2023-06-15] MEDS: METOPROLOL TARTRATE 25 MG TAB PO SCH ×2 (09:39→21:09)
[2023-06-15] MEDS: lisinopril 20 MG TAB PO SCH (09:39)
[2023-06-15] MEDS: APIXABAN 5 MG TABLET PO SCH ×2 (09:40→21:08)
--- NOTE | 2023-06-15 10:04 | XRay Report ---
XR chest 1V portable CLINICAL HISTORY: left PICC tip placement TECHNIQUE: Single frontal radiograph of the chest was obtained. Comparison: Comparison is made to chest radiograph 03/11/2023 FINDINGS: A PICC has been placed with the tip at the mid SVC The aorta is tortuous. The remainder of the cardio mediastinal silhouette is unremarkable. The lungs are clear. No evidence of pleural effusion or pneum othorax. IMPRESSION: Interval placement of a PICC with its tip in satisfactory position. No pneumothorax. ACT 112: Negative or not required by law. Electronically signed by: Dayrno Bonilla M.D. 06/15/2023 10:02 AM
--- NOTE | 2023-06-15 15:27 | Hospitalist Progress Note ---
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 L great toe osteomyelitis L great toe cellulitis Foot MRI with L great toe cellulitis with osteomyelitis suspected in the distal phalanx of the L great toe Pt is POD #3, s/p L great toe amputation with Podiatry. Blood cultures were obtained on admission-NGTD Toe wound culture from 06/07 growing pansensitive staph aureus, surgical toe wound culture from 06/12 MSSA MRSA swab is negative Previously receiving IV vanco and zosyn but wound culture growing pansensitive Staphylococcus species --> transitioned to intravenous cefazolin ID consult appreciated - 6 weeks of IV Cefazolin required q8hr through 07/22 CBC, CMP, ESR, CRP added for am Atrial Fibrillation chronic condition, stable. Continue metoprolol for rate control Apixaban was held on 06/11, has since been resumed post op. 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 Dorsey Dispo: PICC Placement, pt declines rehab, has full services at home, HH arranged and pt to be discharged tomorrow by 11 a.m. to have infusion at 2p. PICC XR viewed by me and in good position Pt was seen and examined in collaboration with Dr. Mustafa, please see addendum Admission and Anticipated Discharge Date Admission Date: June 07, 2023 Supervising Physician Co-Signing Physician Notes I have seen and examined the patient and have discussed the case with the provid er above. I agree with the assessment and plan as stated. Pt doing well, cont current therapy. DO Dl Mustafa Patient seen and examined in 355 -1. Follow-up left great toe osteomyelitis. PICC Line placement went smooth and he said, "not as bad as I thought." He denies any current pain. Feels good otherwise and good appetite. He is ready to get home. He denies f/c/s, chest pain, sob, n/v/d. Review of Systems Review of Systems: All systems reviewed & are unremarkable except as noted in HPI & below Physical Exam Physical Exam: Gen: WD/WN, M, elderly, sitting up in bedside chair, NAD, A&O x3 HEENT: Normocephalic, atraumatic, conjunctivae moist, sclerae anicteric, mucous membranes moist. +dentures that are loose fitting Lung: Clear to Auscultation bilaterally, no wheezes/rales/rhonchi Heart:RR, S1/S2, no rubs/gallops Abdomen: Soft, NT, ND +BS x 4 Extremities:L foot dressing in place, NVI distally Skin: Warm, no rash, negative turgor. Results & Data Results & Data Vital Signs (Past 12 Hours) Vital Signs Temp Pulse Resp BP BP Pulse Ox O2 Del Method 06/15/23 09:35 71 146/70 H 06/15/23 07:49 36.5 C 60 20 153/75 H 94 Room Air Diagnostic Findings Chest X-Ray 06/15/23 09:17 XR chest 1V portable CLINICAL HISTORY: left PICC tip placement TECHNIQUE: Single frontal radiograph of the chest was obtained. Comparison: Comparison is made to chest radiograph 03/11/2023 FINDINGS: A PICC has been placed with the tip at the mid SVC The aorta is tortuous. The remainder of the cardiomediastinal silhouette is unremarkable. The lungs are clear. No evidence of pleural effusion or pneumothorax. IMPRESSION: Interval placement of a PICC with its tip in satisfactory position. No pneumothorax. ACT 112: Negative or not required by law. Electronically signed by: Dayron Bonilla M.D. 06/15/2023 10:02 AM Medications Administered Current Inpatient Medications Acetaminophen (Acetaminophen 500 Mg Tab) 1,000 mg PO Q8H PRN PRN Reason: Mild/Mod Pain ( 1-6) OR fever Stop: 07/07/23 18:16 Last Admin: 06/14/23 08:40 Dose: 1,000 mg Amlodipine Besylate (Amlodipine Besylate 5 Mg Tab) 5 mg PO QAM ELVIRA Stop: 07/08/23 08:59 Last Admin: 06/15/23 09:38 Dose: 5 mg Apixaban (Apixaban 5 Mg Tablet) 5 mg PO Q12H ELVIRA Stop: 07/08/23 09:44 Last Admin: 06/15/23 09:40 Dose: 5 mg Hydromorphone HCl (Hydromorphone Inj 0.5 Mg/0.5 Ml Syr) 0.25 mg IV Q6H PRN PRN Reason: Severe Pain (Scale 7, 8, 9,10) Stop: 06/26/23 19:08 Last Admin: 06/13/23 18:48 Dose: 0.25 mg Cefazolin Sodium (Ancef 2000mg) 2,000 mg in 15 mls @ 3.75 mls/min IV Q8H ELVIRA Stop: 07/21/23 13:59 Last Admin: 06/15/23 14:32 Dose: 3.75 mls/min Lactobacillus Acidophilus (Advanced Probiotic 1250 Mg Capsule) 2 cap PO DAILY ELVIRA Stop: 07/08/23 08:59 Last Admin: 06/15/23 09:39 Dose: 2 cap Lisinopril (Lisinopril 20 Mg Tab) 20 mg PO QAM ELVIRA Stop: 07/08/23 08:59 Last Admin: 06/15/23 09:39 Dose: 20 mg Metoprolol Tartrate (Metoprolol Tartrate 25 Mg Tab) 12.5 mg PO BID ELVIRA Stop: 07/07/23 20:59 Last Admin: 06/15/23 09:39 Dose: 12.5 mg Polyethylene Glycol (Polyethylene (Miralax) 17 Gm Pack) 17 gm PO DAILY PRN PRN Reason: Constipation Stop: 07/07/23 18:16 Simvastatin (Simvastatin 20 Mg Tab) 20 mg PO HS ELVIRA Stop: 07/07/23 20:59 Last Admin: 06/14/23 22:11 Dose: 20 mg (1) Osteomyelitis Laterality: left Osteomyelitis location: foot Osteomyelitis type: unspecified type Qualified Code(s): M86.9 - Osteomyelitis, unspecified
--- NOTE | 2023-06-15 17:58 | Orthopedic Progress Note ---
Date of Service June 15, 2023 Assessment & Plan (1) Osteomyelitis: Plan: Patient seen, evaluated, and treated. Patient status post day #3 Left hallux amputation (DOS 06/12/23) Dressing clean, dry, and intact. Pathology notes +OM. Patient is weight bearing as tolerated with use of surgical shoe. Will continue to follow while in house. Admission and Anticipated Discharge Date Admission Date: June 07, 2023 Subjective Patient seen and examined at bedside. He relates no complaints. Physical Exam Constitutional: cooperative and comfortable Respiratory: normal respiratory effort Cardiovascular: Vessels: posterior tibial pulses present and dorsalis pedis pulses present Musculoskeletal: Extremities: extremities normal to inspection Skin: + wound (Left great toe proximal nail fold minimal serous drainage) and + incision (sutures intact.) Neurologic: moves all extremities (Decreased epicritic sensation) Psychiatric: Orientation: alert and oriented x 3 Results & Data Vital Signs (Past 12 Hours) Vital Signs Temp Pulse Resp BP BP Pulse Ox O2 Del Method 06/15/23 16:04 36.5 C 64 18 100/63 97 Room Air 06/15/23 09:35 71 146/70 H 06/15/23 07:49 36.5 C 60 20 153/75 H 94 Room Air (1) Osteomyelitis Laterality: left Osteomyelitis location: foot Osteomyelitis type: unspecified type Qualified Code(s): M86.9 - Osteomyelitis, unspecified
[2023-06-15] MEDS: SIMVASTATIN 20 MG TAB PO SCH (21:08)
[2023-06-16] MEDS: ceFAZolin 2000MG 2,000 MG/15 ML SYR IV SCH (05:21)
[2023-06-16] MEDS: ADVANCED PROBIOTIC 1250 MG CAPSULE PO SCH (08:14)
[2023-06-16] MEDS: lisinopril 20 MG TAB PO SCH (08:14)
[2023-06-16] MEDS: METOPROLOL TARTRATE 25 MG TAB PO SCH (08:14)
[2023-06-16] MEDS: amLODIPine BESYLATE 5 MG TAB PO SCH (08:14)
[2023-06-16 08:57] LABS: Basophils # (auto) 0.05 K/uL (0.00-0.20); Basophils % (auto) 0.6 %; Eosinophils % (auto) 2.4 %; Hematocrit (blood only) 40.1 % (42.0-52.0); Hemoglobin 13.3 g/dl (14.0-18.0); Immature Granulocytes # (auto) 0.05 K/uL (0.01-0.20); Immature Granulocytes % (auto) 0.6 %; Lymphocytes # (auto) 1.07 K/uL (1.20-3.40); Lymphocytes % (auto) 12.7 %; Mean Corpuscular Hemoglobin 30.6 pg (25.0-34.0); Mean Corpuscular Hgb Conc 33.2 g/dL (32.0-36.0); Mean Corpuscular Volume 92.2 fL (80.0-100.0); Mean Platelet Volume 9.5 fL (9.4-12.4); Monocytes # (auto) 0.61 K/uL (0.11-0.59); Monocytes % (auto) 7.2 %; Neutrophils # (auto) 6.44 K/uL (1.40-6.50); Neutrophils % (auto) 76.5 %; Platelet Count 231 K/uL (130-400); RDW Coefficient of Variation 14.5 % (11.5-14.5); RDW Standard Deviation 49.2 fL (36.4-46.3); Red Blood Count 4.35 M/uL (4.70-6.10); White Blood Count 8.42 K/ul (4.8-10.8)
[2023-06-16] MEDS: APIXABAN 5 MG TABLET PO SCH (09:19)
[2023-06-16 09:20] LABS: Alanine Aminotransferase 3 U/L (7-52); Albumin Globulin Ratio 1.2 (0.9-2); Albumin Level 3.7 gm/dl (3.4-5.0); Alkaline Phosphatase 77 U/L (34-104); Anion Gap 6 (3-11); Aspartate Aminotransferase 16 U/L (13-39); BUN Creatinine Ratio 26.3 (10-20); Bilirubin,Total 0.5 mg/dl (0.2-1.0); Blood Urea Nitrogen 25 mg/dl (6-23); C Reactive Protein < 0.50 mg/dl (0-0.5); Calcium 9.3 mg/dl (8.6-10.3); Carbon Dioxide 28 mmol/L (21-32); Chloride 103 mmol/L (98-107); Creatinine Clr Calc Pharmacy 60.3 ml/min; Est GFR (African American) 84.3 ml/min; Est GFR (Non-African American) 72.7 ml/min; Glucose 112 mg/dl (70-99(Fasting)); Sodium 137 mmol/L (136-145); Total Protein 6.7 gm/dl (6.0-8.3)
--- NOTE | 2023-06-16 09:53 | Discharge Summary ---
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 He has been having L great toe swelling, pain and redness for 1 month. These sx have been worsening. He denies any trauma. Per outpatient epic review patient was placed on Bactrim on 05/05/23 and received an x-ray. At that time x-ray negative for osteomyelitis. Doxycycline was then added to regimen and MRI to toe was ordered due to worsening. Initially he felt like antibiotics helped, but shortly after flared back up again. He was seen in clinic today by Dr. Ceja. MRI was done in outpatient setting on 05/28/2023 with early evidence of osteomyelitis of the first distal phalanx. Due to this finding and clinical concerns for continued cellulitis he was referred to ED. He denies any recent falls. At baseline he walks with a walker/cane. He denies any f/c/s, dizziness, lightheaded, chest pain, sob, n/v/d, abd pain. He does have frequent urination and at night becomes in continent. In ED pt remained hemodynamically stable. He is being admitted due to worsened clinical picture of L great toe and MRI findings concerning for OM. He received broad spectrum antibiotics in ED with vanco and cefepime. Blood cultures were also obtained. Admission Exam Per Admitting Provider Patient was seen in ED, laying comfortably on stretcher.AOx3 Constitutional: no acute distress Eyes: PERRL, conjunctivae normal, anicteric sclerae ENMT: no deformity appreciated, MMM Neck: Trachea midline, no thyromegaly Resp: no distress, decreased bibasilar breathsounds CV:RRR, trace edema GI: NT/ND, soft MSK: left great hallux with prior dressing adhered to cuticle base of nail with erythema and swelling along nailbed and slight purulent discharge, no tracking wound or ulceration appreciated Neuro: no focal deficit apparent Principal Dx & Hospital Course #1 = Principal Diagnosis (1) Osteomyelitis: (2) Atrial fibrillation: (3) History of CVA (cerebrovascular accident): (4) Hypertension: (5) CKD (chronic kidney disease) stage 3, GFR 30-59 ml/min: Plan This is an 83-year-old male who has a significant past medical history of HTN, HLD, atrial fibrillation on the anticoagulant apixaban, 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 Foot MRI with L great toe cellulitis with osteomyelitis suspected in the distal phalanx of the L great toe. Underwent Left hallux amputation on 06/12/[address] Wood. Toe wound culture from 06/07 growing pansensitive staph aureus, surgical toe wound culture from 06/12 MSSA, MRSA swab negative. De-escalated from IV vanco and zosyn to cefazolin to be continued for 6 weeks per ID (end date 06/24). Continue daily probiotic during 6 week course- picc in place. History of CVA in 2007 previously on both apixaban and plavix but Plavix discontinued as there is no indication to be on oral anticoagulation and Plavix as this poses significant bleeding risk in elderly. Patient declines rehab and will return home with family and home health arranged. Patient comfortable and hemodynamically stable at time of discharge. Discharge Exam Gen: WD/WN, NAD, sitting in bedside chair, A&Ox3, appears chronically ill HEENT: Normocephalic, atraumatic, conjunctivae moist, sclerae anicteric, mucous membranes moist Lung: Clear to Auscultation bilaterally, no wheezes/rales/rhonchi Heart: Regular rate, regular rhythm, + murmurs, rubs, or gallops Abdomen: Soft, NT, ND +BS x 4 Extremities: + L great toe with erythema, edema, TTP. Some purulent drainage dried out around toenail edges. BLE trace edema Skin: Warm, no rash Updated Medication List Medication Instructions Recorded Confirmed Type amlodipine 5 mg tablet 5 mg PO QAM 10/10/19 06/07/23 History lisinopril 20 mg tablet 20 mg PO QAM 12/25/19 08/22/23 History simvastatin 20 mg tablet 20 mg PO HS 10/10/19 06/07/23 History apixaban 5 mg tablet (Eliquis) 5 mg PO Q12H #60 tabs 05/12/21 06/07/23 Rx metoprolol tartrate 25 mg tablet 12.5 mg PO BID #60 tabs 03/16/23 06/07/23 Rx L.acidop,casei,lactis,rham-B.lact,aniya 2 cap PO DAILY #42 caps 06/15/23 Rx 625 mg (10 billion cell) capsule (Advanced Probiotic) cefazolin 2 gram/100 mL in 0.9 % 100 ml IV Q8 #1,200 mL 06/15/23 Rx sodium chloride intravenous solution Hospital Stay Data Consultations 06/07/23 15:45 ED Decision to Admit Stat 06/07/23 16:01 Consult Podiatry Routine 06/10/23 14:13 Consult Infectious Diseases Routine Procedures Performed Operation Date: 06/12/23 07:30 Actual Procedures p Left Great Toe Amputation(Left) - Harjinder Wood DPM, MS Diagnostic Imagining Performed 06/09/23 11:41 MRI Foot [MR foot LT w/o con] Routine Pending Results Patient Have Any Pending Studies at Discharge: No Discharge Instructions Given to Patient (Per Discharging Provider) MEDICATION CHANGES: You require IV antibiotics for a total of 6 weeks duration. *IV cefazolin 2 g every 8 hours Stop Plavix Recommend daily probiotic, lactobacillus, while on antibiotic therapy. Continue all other medications. SUMMARY OF TEST RESULTS: You were admitted to hospital secondary to worsening cellulitis of left great toe. MRI findings were concerning for osteomyelitis, a bone infection. You were seen and evaluated podiatry and underwent left great toe amputation. Wound cultures from surgical procedure grew MSSA bacteria and require IV antibiotics for 6 weeks. PENDING TEST RESULTS: None RECOMMENDATIONS FOR FOLLOW-UP: Please follow-up with primary care provider as scheduled. Continue antibiotics to complete in this entirety. Your primary care provider will discontinue your IV site once antibiotics are completed. Please refer to instructions provided in discharge packet regarding proper care for PICC line. You will need to follow-up with Dr. Wood within 1 week of discharge. You may bear weight on your left foot with surgical shoe in place. OTHER INSTRUCTIONS: Seek medical attention if you have: * temperature above 101 * chest pain or trouble breathing * abdominal pain, nausea, vomiting * diarrhea, dark stools or bloody stools * any unanswered questions or concerns Call 911 if symptoms are severe. Please take good care of yourself. It has been a pleasure taking care of you. Please take care of yourself. If you have any questions regarding your recent hospitalization please contact [facility] and request Jose Millsist @ [phone]. Alessandra Camargo PA-C Total Time Total Time Spent Total Time Spent (In Minutes): 60 Supervising Physician Co-Signing Physician Notes Pt seen and examined by myself, Clary Yañez MD on the day of service. Care was coordinated with Romana Abbott PA-C. Please refer to her note for additional information. 83yo with osteomyelitis in L great toe s/p toe amputation by podiatry. Requires IV cefazolin for 6 weeks after discharge. Otherwise as above.
== END 2023-06-16 10:50 | disposition home health service (06) | DRG 617 ==
LOC: ED 11:50 → EDINP 16:01 → SUATTDRO 16:01 → 3W 18:18

== ENCOUNTER 2023-12-04 18:11 | Inpatient (IN) ==
--- OUTSIDE RECORDS SUMMARY | 2023-12-04 18:18 | External Medical Summary | Summary of Care ---
Author Name Unknown Organization [facility] Address [address] [place] [address] Phone [phone] Care Team Providers Care Casting Room Operator Name Role Phone Tacho Dorsey MD Primary Care Provider [phone]- [phone] Reason for Visit * Precert (Within 10 days (routine)) - Pending Review Specialty Diagnoses / Procedures Referred By Contac t Referred To Contact Radiology Diagnoses BPH with obstruction/lower urinary tract symptoms Hematuria, gross Procedures CT UROGRAPHY W WO CONTRAST CT ABD/PELVIS W WO IV CONTRAST - WO ORAL CONT Mayuri Vasquez PA-C [address] [place] [address] Referral ID Status Reason Start Date Expiration Date V isits Requested Visits Authorized [id number] Pending Review 11/23/[phone] Encounter Details Date Type Department Care Team (Latest Contact Info) Description 11/25/2023 7:40 AM EST - 11/25/2023 11:59 PM EST Hospital Encounter Radiology, [facility] [address] [place] [phone] Arrived Discharge Disposition: Home - Self Care Allergies No known active allergiesdocumented as of this encounter (statuses as of 11/26/2023) Medications Medication Sig Dispensed Refills Start Date End Date Status Apixaban 5 MG Oral Tablet (Eliquis)Indications :Confirmed venous thromboembolism (VTE) Take 1 Tablet by mouth in the morning and 1 Tablet before bedtime. 180 Tablet 3 04/11/2023 Active Metoprolol Tartrate 25 MG Oral Tablet (Lopressor) Take 0.5 Tablets by mouth in the morning and 0.5 Tablets before bedtime. 90 Tablet 3 04/28/2023 Active Probiotic Advanced Oral Capsule Take 2 Capsules by mouth in the morning. 0 Active D5W 5% SOLN 100 mL with ceFAZolin 1 GM SOLR 2 g Administer 2 g intravenously in the morning and 2 g at noon and 2 g before bedtime. For 6 weeks. 0 Active amLODIPine Besylate 5 MG Oral Tablet (Norvasc)Indications :HTN, goal below 140/90 Take 1 Tablet by mouth in the morning. 90 Tablet 3 09/20/2023 Active Lisinopril 20 MG Oral Tablet (Prinivil)Indication s:Essential hypertension with goal blood pressure less than 140/90 Take 1 Tablet by mouth in the morning. 90 Tablet 3 09/20/2023 Active Simvastatin 20 MG Oral Tablet (Zocor)Indications:D yslipidemia, goal LDL below 100 TAKE 1 TABLET BY MOUTH EVERYDAY AT BEDTIME 90 Tablet 3 09/20/2023 Active Tamsulosin HCl 0.4 MG Oral Capsule (Flomax) Take 1 Capsule by mouth in the morning. 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 02/24/2021 Overview: Per CKD protocol Hemiplegia, unspecified affecting right dominant side 01/26/2021 Foot drop, right foot 10/18/2019 HTN, goal below 140/90 01/09/2018 History of pulmonary embolism 08/30/2017 Dyslipidemia, goal LDL below 100 07/06/2011 Cerebrovascular disease, arteriosclerotic, post- stroke 01/28/2009 Overview: Modified per CVA protocol #8 documented as of this encounter (statuses as of 11/26/2023) Resolved Problems Problem Noted Date Diagnosed Date Resolved Date Transient ischemic attack 05/19/2021 Overview: Not current TIA-Hx on PL Benign hypertension with chr onic kidney disease, stage III 01/09/2018 02/26/2021 Overview: Per CKD protocol Postural dizziness with presyncope 06/17/2016 08/26/2016 Hypotension 06/17/2016 08/26/2016 Kidney disease, chronic, sta ge III (GFR 30-59 ml/min) 12/10/2013 01/24/2019 Overview: Per CKD protocol #1 HTN, goal below 140/90 01/05/201207/20 Dyslipidemia, goal to be determined 10/22/2008 07/06/2011 Iatrogenic pulmonary embolism and infarction 8 08/30/2017 Venous 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/2017 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 of ant icoagulant therapy 09/04/2008 12/30/2008 Overview: ICD-10 update of inactive term Anticoagulation management encounter 09/04/2008 12/30/2008 ADVANCE DIRECTIVE INFORMATION 08/30/2008 08/30/2017 Overview: Yes, advised to provide copy to PCP Cerebrovascular event, ill-d efined, within last 8 weeks 08/30/2008 01/30/2009 Overview: Modified per CVA protocol #8 HTN, goal below 150/90 01/09 documented as of this encounter (statuses as of 11/26/2023) Immunizations Name Administration Dates Next Due COVID-19 mRNA, LNP-s, No Pre serve, 2-Dose Series ([employer]) 01/16/2021,12/26/2020 Pneumococcal Conjugate Vacc, 13 Valent (Prevnar) 08/25/2015 Pneumococcal Polysaccharide PPV23 (Pneumovax) 07/31/2008 Season Influenza, Quad, PF, Adjuvanted, 65+ Yrs, IM (FLUAD) 07/28/2020 Seasonal Influenza, PF, 6 M & above, IM , (FluLaval or Fluzone) 07/16/2019,07/12/2018,08/30/2017 Seasonal Influenza, Quadriva lent Hd (Fluzone Hd) 09/20/2023,09/06/2022,07/28/2021 Seasonal Influenza, Quadriva lent, No Preserve, IM 07/20/2016 Seasonal Influenza, Split, I IV3, With Preserve, Inj 07/07/2015,08/24/2014,07/10/2013,06/18,07/06/2011,07/01/2010,07/29/20,07/31/2008 08/24/2015 TDAP (age 10 and older)(Boostrix) 01/09/2013 documented as of this encounter Social History Tobacco Use Types Packs/Day Years Used Date Smoking Tobacco: Never Smokeless Tobacco: Never Alcohol Use Standard Drinks/Week Comments No 0 (1 standard drink = 0.6 oz pur e alcohol) PHQ-2 Answer Date Recorded PHQ Adult Total Score 0 01/26/2021 Hunger Vital Sign Answer Date Recorded Within the past 12 months, y ou worried that your food would run out before you got the money to buy more. Never true 03/17/20 23 Within the past 12 months, t he food you bought just didn't last and you didn't have money to get more. Never true 03/17/2023 Sex and Gender Information Value Date Recorded Sex Assigned at Male 01/10/2019 10:15 AM EDT Gender Identity Male 01/10/2019 10:15 AM EDT Sexual Orientation Not on file Job Start Date Occupation Industry Not on file Not on file Not on file documented as of this encounter Plan of Treatment Upcoming Encounters Date Type Department Care Team (Late st Contact Info) Description 12/06/2023 2:45 PM EST Procedure Only [facility] [address] [place] [phone] Johnathan Larsen MD [address] [place] [address] 03/27/2024 2:40 PM EDT Office Visit [address] [place] [phone] Tacho Dorsey MD [address], [place] [phone] Health Maintenance Due Date Last Done Comments Zoster Vaccines (1 of 2) 1988 Depression Screening 01/26/2022 01/26/2021 DTaP,Tdap,and Td Vaccines (2 - Td or Tdap) 01/09/2023 01/09/2013 COVID-19 Vaccine (3 - 2022- season) 2023 01/16/2021, 12/26/2020 Albumin/Creatinine Ratio 09/06/2023 09/06/2022 CKD PHOS USE SMARTSET 07701 09/06/202308/18, 07/28/2021, 07/31/2020, Additional history exists CKD HGB USE SMARTSET 63972 07/19/202407/19, 07/12/2023, 07/05/2023, Additional history exists Pneumococcal Vaccine: 65+ Years Completed 08/25/2015, 07/31/2008 Influenza Vaccine (FLU shot) Completed 02/2023, 09/06/2022, 07/28/2021, Additional history exists GARDASIL-HPV IMMUNIZATION SERIES Aged Out No longer eligible based on patient's age to complete this topic Hepatitis B Aged Out No longer eligi ble based on patient's age to complete this topic MENINGOCOCCAL (MENACTRA/MENVEO) Aged Out No longer eligible based on patient's age to complete this topic documented as of this encounter Medical Devices Not on filedocumented as of this encounter Procedures Procedure Name Priority Date/Time Associated Diagnosis Comments CT UROGRAPHY W WO CONTRAST Routine 11/25/2023 8:50 AM EST BPH with obstruction/lower urinary tract symptoms Hematuria, gross documented in this encounter Results * CT UROGRAPHY W WO CONTRAST (11/25/2023 8:50 AM EST) Anatomical Region Laterality Modality Body, Abdomen, Pelvis Computed T omography 11/26/2023 11:4 8 AM EST Impressions 11/26/2023 11:46 AM EST IMPRESSION: 1. Urinary bladder outlet obstruction secondary to prostatomegaly,61 mL volume. 2. Simple cortical cysts bilaterally. No enhancing solid cortical or urothelial mass. Narrative 11/26/2023 11:46 AM EST EXAM: CT UROGRAPHY W WO CONTRAST Date and Time: 11/25/2023 HISTORY: 83 y/o , M, gross hematuria. TECHNIQUE: CT abdomen and pelvis pre and post intravenous contrast administration, 100 mL Optiray-350. Following axial CT series were obtained: - abdomen and pelvis unenhanced - abdomen and pelvis nephrographic phase - abdomen and pelvis excretory phase Postprocessing reconstructions of the abdomen and pelvis in: - Nephrographic phase - Excretory phase 3D rotational MIP images of the kidneys, ureters and bladder with transparent bone. COMPARISON: No prior. FINDINGS: KIDNEYS/URETERS: - No renal/ureteral calculi. No hydronephrosis. - Symmetric nephrograms. Multiple small non-enhancing fluid-density (2 HU) cortical cysts measuring up to 1.5 cm (mid segment left kidney). No solid enhancing renal cortical mass. - No abnormal urothelial enhancement. Nonobstructive excretion of intravenous contrast into normal caliber renal collecting system and ureters. No filling defect within the renal collecting system or ureters. REPRODUCTIVE ORGANS: Prostatomegaly, 4.7 (CC) x 4.8 (AP) x 5.2 (TV) cm x 0.52= 61 mL volume. BLADDER: No calcified stone. No focal intramural enhancement. Bladder base elevation and diffuse wall thickening, suggests outlet obstruction. ABDOMEN/PELVIS: DEVICES: Infrarenal IVC filter. LIVER: Unremarkable BILE DUCTS: Unremarkable. GALLBLADDER: No calcified gallstones. PANCREAS: Unremarkable. SPLEEN: Small peripherally calcified cyst in the upper pole.. ADRENALS: Unremarkable. BOWEL: Unremarkable. LYMPH NODES: No abdominal pelvic lymphadenopathy. VESSELS: No aneurysmal dilatation of the abdominal aorta. PERITONEUM/RETROPERITONEUM: Unremarkable. ABDOMINAL WALL/SOFT TISSUES: Unremarkable. BONES: Thick flowing calcification along the anterior aspects of visualized lower thoracic vertebral bodies, suggests diffuse idiopathic skeletal hyperostosis (DISH). Convex-left lumbar spine with multilevel degenerative disc-disease particularly at the L3/L4 apex of curvature.. LUNG BASES: Linear pleuroparenchymal scarring in the right lung base. Procedure Note Buck Godinez MD - 11/26/2023 EXAM: CT UROGRAPHY W WO CONTRAST Date and Time: 11/25/2023 HISTORY: 83 y/o , M, gross hematuria. TECHNIQUE: CT abdomen and pelvis pre and post intravenous contrast administration,100 mL Optiray-350. Following axial CT series were obtained: - abdomen and pelvis unenhanced - abdomen and pelvis nephrographic phase - abdomen and pelvis excretory phase Postprocessing reconstructions of the abdomen and pelvis in: - Nephrographic phase - Excretory phase 3D rotational MIP images of the kidneys, ureters and bladder withtransparent bone. COMPARISON: No prior. FINDINGS: KIDNEYS/URETERS: - No renal/ureteral calculi. No hydronephrosis. - Symmetric nephrograms. Multiple small non-enhancing fluid-density (2HU) cortical cysts measuring up to 1.5 cm (mid segment left kidney). Nosolid enhancing renal cortical mass. - No abnormal urothelial enhancement. Nonobstructive excretion ofintravenous contrast into normal caliber renal collecting system andureters. No filling defect within the renal collecting system orureters. REPRODUCTIVE ORGANS: Prostatomegaly, 4.7 (CC) x 4.8 (AP) x 5.2 (TV) cm x0.52= 61 mL volume. BLADDER: No calcified stone. No focal intramural enhancement. Bladderbase elevation and diffuse wall thickening, suggests outlet obstruction. ABDOMEN/PELVIS: DEVICES: Infrarenal IVC filter. LIVER: Unremarkable BILE DUCTS: Unremarkable. GALLBLADDER: No calcified gallstones. PANCREAS: Unremarkable. SPLEEN: Small peripherally calcified cyst in the upper pole.. ADRENALS: Unremarkable. BOWEL: Unremarkable. LYMPH NODES: No abdominal pelvic lymphadenopathy. VESSELS: No aneurysmal dilatation of the abdominal aorta. PERITONEUM/RETROPERITONEUM: Unremarkable. ABDOMINAL WALL/SOFT TISSUES: Unremarkable. BONES: Thick flowing calcification along the anterior aspects ofvisualized lower thoracic vertebral bodies, suggests diffuse idiopathicskeletal hyperostosis (DISH). Convex-left lumbar spine with multileveldegenerative disc-disease particularly at the L3/L4 apex of curvature.. LUNG BASES: Linear pleuroparenchymal scarring in the right lung base. IMPRESSION IMPRESSION: 1. Urinary bladder outlet obstruction secondary to prostatomegaly,61 mLvolume. 2. Simple cortical cysts bilaterally. No enhancing solid cortical orurothelial mass. Mayuri Vasquez PA-C RAD CT documented in this encounter Visit Diagnoses Diagnosis BPH with obstruction/lower urinary tract symptoms Hypertrophy of prostate with urinary obstruction and other lower urinary tract symptoms (LUTS) Hematuria, gross Gross hematuria documented in this encounter Administered Medications Inactive Administered Medications - up to 3 most recent administrations Medication Order MAR Action Action Date Dose Rate Site Ioversol (Optiray 350) 74 % inj 100 mL 100 mL, Intravenous, ONCE, On Tue11/25/23 at 0853, For 1 dose, Radiology Medication Routing (Non-IR) Given 11/25/2023 8:52 AM EST 100 mL documented in this encounter Care Teams Casting Room Operator Relationship Specialty Start Date End Date Tacho Dorsey MD [address] [place] [address] PCP - General 09/16/08 documented as of this encounter
--- OUTSIDE RECORDS SUMMARY | 2023-12-04 18:18 | External Medical Summary ---
Author Name Unknown Address Unknown Organization [id number]:[facility] [place] - [address] [place] [address] Laboratory Report Ordering Provider Test Date Status JACQUELINE ESPINOZA 11/25/2023 07:43:44 Final Observation Date Value Abnormality Reference (Units ) Status PSA 11/25/2023 07:43:44 6.07 Above high normal <4 .10 (ng/mL) Final Performing Location [facility] [place] - [address] [place] [address]
--- OUTSIDE RECORDS SUMMARY | 2023-12-04 18:18 | External Medical Summary | Summary of Care ---
Author Name Unknown Organization [facility] Address [address] [place] [address] Phone [phone] Care Team Providers Care Looping Machine Operator Name Role Phone Tacho Dorsey MD Primary Care Provider +1- [phone] Reason for Visit * Reason Comments Outpatient Testing Encounter Details Date Type Department Care Team (Late st Contact Info) Description 11/25/2023 7:50 AM EST Laboratory Laboratory, [address] [phone] [place], Lab [address] [place] [id number] BPH with obstruction/lower urinary tract symptoms; Hematuria, gross; Elevated prostate specific antigen (PSA) Allergies No known active allergiesdocumented as of this encounter (statuses as of 11/25/2023) Medications Medication Sig Dispensed Refills Start Date [...] as of this encounter (statuses as of 11/25/2023) Active Problems Problem Noted Date Diagnosed Date [...] as of this encounter (statuses as of 11/25/2023) Resolved Problems Problem Noted Date Diagnosed Date [...] infarction 8 08/30/2017 Venous 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/2017 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 09/04/2008 12/30/2008 Overview: ICD-10 update of inactive term Anticoagulation management encounter 09/04/2008 12/30/2008 ADVANCE DIRECTIVE INFORMATION 08/30/2008 08/30/2017 Overview: Yes, advised to provide copy to PCP Cerebrovascular event, ill-d efined, within last 8 weeks 08/30/2008 01/30/2009 Overview: Modified per CVA protocol #8 HTN, goal below 150/90 01/09 documented as of this encounter (statuses as of 11/25/2023) Immunizations Name Administration Dates Next Due COVID-19 mRNA, LNP-s, No Pre serve, 2-Dose Series ([employer]) 01/16/2021,12/26/2020 Pneumococcal Conjugate Vacc, 13 Valent (Prevnar) [...] Care Team (Late st Contact Info) Description 11/25/2023 7:40 AM EST Hospital Encounter Radiology, [facility] [address] [place] [address] Arrived 12/06/2023 2:45 PM EST Procedure Only [facility] [address] [place] [address] Johnathan Larsen MD [address] [place] [address] 03/27/2024 2:40 PM EDT Office Visit [facility] [address] [place] [phone] Tacho Dorsey MD [address] [place] [address] Pending Results Name Type Priority Associated Diagnoses Date /Time CREATININE Lab STAT BPH with obstruction/lower urinary tract symptoms Hematuria, gross 11/25/2023 7:43 AM EST PSA Lab Routine Elevated prostate specific antigen (PSA) 11/25/2023 7:43 AM EST Health Maintenance Due Date Last Done Comments Zoster Vaccines (1 of 2) 1988 Depression Screening 01/26/2022 01/26/2021 DTaP,Tdap,and Td Vaccines (2 - Td or Tdap) 01/09/2023 01/09/2013 COVID-19 Vaccine (3 - season) 2023 01/16/2021, 12/26/2020 Albumin/Creatinine Ratio 09/06/2023 09/06/2022 CKD PHOS USE SMARTSET 34206 09/06/202308/18, 07/28/2021, 07/31/2020, Additional history exists CKD HGB USE SMARTSET 65161 07/19/202407/19, 07/12/2023, 07/05/2023, Additional history exists Pneumococcal [...] Not on filedocumented as of this encounter Visit Diagnoses Diagnosis BPH with obstruction/lower urinary tract symptoms Hypertrophy of prostate with urinary obstruction and other lower urinary tract symptoms (LUTS) Hematuria, gross Gross hematuria BPH with obstruction/lower urinary tract symptoms Hypertrophy of prostate with urinary obstruction and other lower urinary tract symptoms (LUTS) Hematuria, gross Gross hematuria Elevated prostate specific antigen (PSA) documented in this encounter Care Teams Looping Machine Operator Relationship Specialty Start Date End Date Tacho Dorsey MD [address] [place] [address] PCP - General 09/16/08 documented as of this encounter
--- OUTSIDE RECORDS SUMMARY | 2023-12-04 18:18 | External Medical Summary ---
Author Name Unknown Address Unknown Organization [id number]:[facility]ATORY [facility] - [address] [place] [id number] Laboratory Report Ordering Provider Test Date Status JACQUELINE ESPINOZA 11/25/2023 07:43:44 Final Observation Date Value Abnormality Reference (Units ) Status Creatinine 11/25/2023 07:43:44 1.0 0.6-1.2 (mg/dL) Final Glomerular filtration rate/1.73 sq M.predicted [Volume Rate/Area] in Serum, Plasma or Blood by Creatinine-based formula (CKD-EPI) 11/25/2023 07:43:44 76 >=60 (mL/min) Final eGFR is calculated based on the CKD-EPI 2020 equation Performing Location [facility]ORY [facility] - [address] [place] [phone]
--- OUTSIDE RECORDS SUMMARY | 2023-12-04 18:19 | External Medical Summary ---
Author Name Unknown Address Unknown Organization [id number]:[facility] [place] [address] [place] [address] Laboratory Report Ordering Provider Test Date Status CIARA VIDESSIA 07/12/2023 13:00:00 Final Observation Date Value Abnormality Reference (Units ) Status BUN 07/12/2023 13:00:00 16 6-20 (mg/dL) Final Creatinine 07/12/2023 13:00:00 0.9 0.6-1.2 (mg/dL) Final Glomerular filtration rate/1.73 sq M.predicted [Volume Rate/Area] in Serum, Plasma or Blood by Creatinine-based formula (CKD-EPI) 07/12/2023 13:00:00 84 >=60 (mL/min) Final eGFR is calculated based on the CKD-EPI 2020 equation SODIUM 07/12/2023 13:00:00 142 135-146 (m mol/L) Final Potassium 07/12/2023 13:00:00 4.4 3.5-5.1 (m mol/L) Final Cl 07/12/2023 13:00:00 105 98-107 (mm ol/L) Final CO2 07/12/2023 13:00:00 27 22-32 (mmo l/L) Final Anion gap 07/12/2023 13:00:00 10 7-15 (mmol /L) Final Glucose 07/12/2023 13:00:00 77 70-120 (mg /dL) Final Calcium 07/12/2023 13:00:00 9.1 8.4-10.2 ( mg/dL) Final Performing Location [facility] [place] - [address] [place] [address]
--- OUTSIDE RECORDS SUMMARY | 2023-12-04 18:19 | External Medical Summary | Summary of Care ---
Author Name Unknown Organization [facility] Address [address] [place] [address] Phone [phone] Care Team Providers Care Alcohol And Drug Counselor Name Role Phone Mahogany Hernandez MD Primary Care Provider [phone]- [phone] Reason for Referral * Precert (Within 10 days (routine)) - Pending Review Specialty Diagnoses / Procedures Referred By Antonio weathers Referred To Contact Radiology Diagnoses BPH with obstruction/lower urinary tract symptoms Hematuria, gross Procedures CT ABD/PELVIS W WO IV CONTRAST - WO ORAL CONT Mayuri Vasquez PA-C [address] [place] [address] Referral ID Status Reason Start Date Expiration Date V isits Requested Visits Authorized [id number] Pending Review 11/23/2023 999 999 Reason for Visit * Evaluate & Treat - Unlimited Visits (Within 30 days (routine)) - Authorized Specialty Diagnoses / Procedures Referred By Antonio weathers Referred To Contact Urology Diagnoses Urinary incontinence, unspecified type Elevated prostate specific antigen (PSA) Mahogany Hernandez MD [facility] [place] [address] Referral ID Status Reason Start Date Expiration Date Visits Requested Visits Authorized [id number] Authorized Specialty Services Required 3 [phone] Encounter Details Date Type Department Care Team (Late st Contact Info) Description 11/23/2023 1:00 PM EST Office Visit Urology, [facility] [address] [place] [address] Mayuri Vasquez PA-C [address] [place] [address] Elevated prostate specific antigen (PSA)*; BPH with obstruction/lower urinary tract symptoms; Hematuria, gross Allergies No known active allergiesdocumented as of this encounter (statuses as of 11/23/2023) Medications Medication Sig Dispensed Refills Start Date [...] as of this encounter (statuses as of 11/23/2023) Active Problems Problem Noted Date Diagnosed Date [...] as of this encounter (statuses as of 11/23/2023) Resolved Problems Problem Noted Date Diagnosed Date [...] infarction 8 08/30/2017 Venous 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/2017 long-term current use of ant icoagulant therapy 09/04/2008 12/30/2008 Overview: ICD-10 update of inactive term Anticoagulation management encounter 09/04/2008 12/30/2008 ADVANCE DIRECTIVE INFORMATION 08/30/2008 08/30/2017 Overview: Yes, advised to provide copy to PCP Cerebrovascular event, ill-d efined, within last 8 weeks 08/30/2008 01/30/2009 Overview: Modified per CVA protocol #8 HTN, goal below 150/90 01/09 documented as of this encounter (statuses as of 11/23/2023) Immunizations Name Administration Dates Next Due COVID-19 mRNA, LNP-s, No Pre serve, 2-Dose Series (Pfizer) 01/16/2021,12/26/2020 Pneumococcal Conjugate Vacc, 13 Valent (Prevnar) 08/25/2015 Pneumococcal Polysaccharide PPV23 (Pneumovax) 07/31/2008 Season Influenza, Quad, PF, Adjuvanted, 65+ Yrs, IM (FLUAD) 07/28/2020 Seasonal Influenza, PF, 6 M & above, IM , (FluLaval or Fluzone) 07/16/2019,07/12/2018,08/30/2017 Seasonal Influenza, Quadriva lent Hd (Fluzone Hd) 09/20/2023,09/06/2022,07/28/2021 Seasonal Influenza, Quadriva lent, No Preserve, IM 07/20/2016 Seasonal Influenza, Split, I IV3, With Preserve, Inj 07/07/2015,08/24/2014,07/10/2013,06/18,07/06/2011,07/01/2010,07/29/20 09,07/31/2008 08/24/2015 TDAP (age 10 and older)(Boostrix) 01/09/2013 [...] on file documented as of this encounter Last Filed Vital Signs Vital Sign Reading Time Taken Comments Blood Pressure 130/78 11/23/2023 1:02 PM EST Pulse 75 11/23/2023 1:02 PM EST Temperature 36.8 C (98.3 F) 11/23/2023 1:02 PM ES T Respiratory Rate - - Oxygen Saturation - - Inhaled Oxygen Concentration - - Weight - - Height - - Body Mass Index - - documented in this encounter Progress Notes * Mayuri Vasquez PA-C - 11/23/2023 12:58 PM EST I have personally reviewed the pt's records. PCP: MAHOGANY HERNANDEZ [address] [place] [address] HPI: Trung Coles MR# [id number] is a 83 year old male presents in consultation from Mahogany Hernandez MD for evaluation of elevated PSA. He is here with his daughter He was admitted to [facility] in February for prostatitis. According to the PCP note he had B/L lowerabd pain with nausea and an episode of urinary incontinence overnight. He denied fever, dysuria or hematuria. It was thought he had prostatitis d/t neg urine culture, elevated PSA and elevated WBC. He states his urinary stream seems normal. Denies dysuria or hematuria. He is wearing briefs now. He is incontinent at times more at night. He doesn't drink much. The daughter states he had blood in his urine during his hospitalization. Review of patient's allergies indicates: No Known Allergies Current Outpatient Medications Medication Sig Dispense Refill Apixaban 5 MG Oral Tablet (Eliquis) Take 1 Tablet by mouth in the morning and 1 Tablet before bedtime. 180 Tablet 3 Metoprolol Tartrate 25 MG Oral Tablet (Lopressor) Take 0.5 Tablets by mouth in the morning and 0.5 Tablets before bedtime. 90 Tablet 3 Probiotic Advanced Oral Capsule Take 2 Capsules by mouth in the morning. D5W 5% SOLN 100 mL with ceFAZolin 1 GM SOLR 2 g Administer 2 g intravenously in the morning and 2 gat noon and 2 g before bedtime. For 6 weeks. amLODIPine Besylate 5 MG Oral Tablet (Norvasc) Take 1 Tablet by mouth in the morning. 90 Tablet 3 Lisinopril 20 MG Oral Tablet (Prinivil) Take 1 Tablet by mouth in the morning. 90 Tablet 3 Simvastatin 20 MG Oral Tablet (Zocor) TAKE 1 TABLET BY MOUTH EVERYDAY AT BEDTIME 90 Tablet 3 No current facility-administered medications for this visit. 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 Atrial fibrillation (HCC) I48.91 History of amputation of left great toe (HCC) Z89.412 Past Medical History: Diagnosis Date Cerebrovascular event, ill-defined, within last 8 weeks Foot drop, right foot 10/18/2019 HTN, goal below 150/90 Other pulmonary embolism and infarction Phlebitis and thrombophlebitis of other deep vessels of lower extremities Transient ischemic attack 05/19/2021 Not current TIA-Hx on PL Past Surgical History: Procedure Laterality Date COLORECTAL CANCER SCREEN; NOT AT RISK 09/04/09 wnl Family Status Relation Status Mo Fa Sis Bro Social History Socioeconomic History Marital status: Spouse name: Not on file Number of children: Not on file Years of education: Not on file Highest education level: Not on file Occupational History Not on file Tobacco Use Smoking status: Never Smokeless tobacco: Never Substance and Sexual Activity Alcohol use: No Drug use: No Sexual activity: Not on file Other Topics Concern Not on file Social History Narrative Not on file Social Determinants of Health Financial Resource Strain: Not on file Food Insecurity: No Food Insecurity (03/17/2023) Hunger Vital Sign Worried About Running Out of Food in the Last Year: Never true Ran Out of Food in the Last Year: Never true Transportation Needs: Not on file Physical Activity: Not on file Stress: Not on file Social Connections: Not on file Intimate Partner Violence: Not on file Housing Stability: Not on file Review of Systems: CONSTITUTIONAL: Denies change weight, chills. SKIN: Denies rash NEURO: Denies headache EENT: Denies visual changes CARDIAC: Denies chest pain RESPIRATORY: Denies SOB GI: Denies nausea, vomiting, diarrhea, constipation : see above ENDOCRINE: Denies diabetes mellitus MUSCULOSKELETAL: Denies arthritis HEMATOLOGIC: Denies prior h/o DVT PSYCHOLOGICAL: Denies h/o depression ALL OTHER SYSTEMS NEGATIVE PHYSICAL EXAM: BP 130/78 (BP Site: Left Arm, BP Position: Sitting, BP Cuff Size: Large) | Pulse 75 | Temp 36.8 C(98.3 F) (Tympanic) General: alert,healthy,no distress,well developed,well nourished,cooperative Respiratory: unlabored breathing Skin: warm and dry Neuro: Reflexes normal and symmetric,Sensory/Motor grossly normal GI: Abdomen soft, non-tender Muskuloskeletal: No Costovertebral Angle Tenderness BUSHRA: sphincter intact, hemorrhoidal tissue not noted, non-tender to palpation, symmetrical, 40 grams, and anodular LABS: PSA: PSA:LAB PSA Latest Ref Rng <4.10 ng/mL 07/06/2011 1.10 03/11/2023 36.47 (H) 09/20/2023 6.66 (H) Legend: (H) High 03/11/23 urine culture no growth, RBC 10-19/ hpf PVR 47 ml via bladder scanner Impression: Trung Coles is a 83 year old male with: 1. He was admitted in February to [facility]. No records. He had lower abd pain, nausea and incontinence. They were told possible prostatitis. His PSA was 36.47. It does not sound like he had a catheter and his urine was positive for microscopic hematuria. He has BPH and is emptying adequately. Urine neg for infection. His PSA has decreased to 6.6. Plan: 1. We discussed the differential diagnosis of microscopic hematuria which include BPH, urolithiasis, malignancy, infection, medical kidney disease, and idiopathic etiologies. The AUA recommendation for hematuria of a CT to evaluate the upper urinary tracts and a cystoscopy to evaluate the bladder. Pt verbalized understanding and wishes to proceed. 2. Flomax 0.4 mg daily. Dosing and effects of medication discussed and patient voices understanding. 3. PSA if it continues to decrease likely no biopsy needed 4. RTC CT, Cr, cystoscopy, PSA Mayuri Vasquez PA-C 12:59 PM 11/23/2023 documented in this encounter Plan of Treatment Upcoming Encounters Date Type Department Care Team (Late st Contact Info) Description 11/25/2023 9:00 AM EST Appointment Radiology, [facility] [address] [place] [address] 12/06/2023 2:45 PM EST Procedure Only Urology [facility] Chasidy Graves [address] [facility] [address] [place] [address] Johnathan Larsen MD [address] [place] [address] 03/27/2024 2:40 PM EDT Office Visit [facility] [address] [place] [phone] Mahogany Hernandez MD [address] [place] [address] Scheduled Orders Name Type Priority Associated Diagnoses Orde r Schedule CT ABD/PELVIS W WO IV CONTRAST - WO ORAL CONT Medical Imaging Routine BPH with obstruction/lower urinary tract symptoms Hematuria, gross Expected: 11/23/2023, Expires: 12/21/2024 CREATININE Lab Routine BPH with obstruction/lower urinary tract symptoms Hematuria, gross Expected: 11/23/2023, Expires: 11/23/2024 PSA Lab Routine Elevated prostate specific antigen (PSA) Expected: 11/23/2023, Expires: 11/23/2024 Health Maintenance Due Date Last Done Comments Zoster Vaccines (1 of 2) 1988 Depression Screening 01/26/2022 01/26/2021 DTaP,Tdap,and Td Vaccines (2 - Td or Tdap) 01/09/2023 01/09/2013 COVID-19 Vaccine (3 - season) 2023 01/16/2021, 12/26/2020 Albumin/Creatinine Ratio 09/06/2023 09/06/2022 CKD PHOS USE SMARTSET 45026 09/06/202308/18, 07/28/2021, 07/31/2020, Additional history exists CKD HGB USE SMARTSET 68480 07/19/202407/19, 07/12/2023, 07/05/2023, Additional history exists Pneumococcal [...] Procedure Name Priority Date/Time Associated Diagnosis Comments POST VOID RESIDUAL BLADDER US (PHYSICIAN ONLY) Routine 11/23/2023 1:18 PM EST BPH with obstruction/lower urinary tract symptoms documented in this encounter Results * POST VOID RESIDUAL BLADDER US (PHYSICIAN ONLY) (11/23/2023 1:18 PM EST) Post Void Residual (PVR) - Urine 47 mL Mayuri Vasquez PA-C SURGERY documented in this encounter Visit Diagnoses Diagnosis Elevated prostate specific antigen (PSA)- Primary BPH with obstruction/lower urinary tract symptoms Hypertrophy of prostate with urinary obstruction and other lower urinary tract symptoms (LUTS) Hematuria, gross Gross hematuria documented in this encounter Care Teams Alcohol And Drug Counselor Relationship Specialty Start Date End Date Mahogany Hernandez MD [address] [place] [address] PCP - General 09/16/08 documented as of this encounter"
--- OUTSIDE RECORDS SUMMARY | 2023-12-04 18:19 | External Medical Summary ---
Author Name Unknown Address Unknown Organization [id number]:[facility] [place] [address] [place] [address] Laboratory Report Ordering Provider Test Date Status DAVID VIDES 07/12/2023 21:46:43 Final Observation Date Value Abnormality Reference (Units ) Status Erythrocyte sedimentation rate by Photometric method 07/12/2023 21:46:43 15 <20 (mm/hour) Final Performing Location [facility] [place] [address] [place] [address]
--- OUTSIDE RECORDS SUMMARY | 2023-12-04 18:19 | External Medical Summary | Summary of Care ---
Author Name Unknown Organization [facility] Address [address] [facility] [place] [address] Phone [phone] Care Team Providers Care Mushroom Farmer Name Role Phone Tacho Dorsey MD Primary Care Provider [phone]- [phone] Reason for Referral * Evaluate & Treat - Unlimited Visits (Within 30 days (routine)) - Authorized Specialty Diagnoses / Procedures Referred By Antonio weathers Referred To Contact Urology Diagnoses Urinary incontinence, unspecified type Elevated prostate specific antigen (PSA) Tacho Dorsey MD [address] [place] [address] Referral ID Status Reason Start Date Expiration Date Visits Requested Visits Authorized [id number] Authorized Specialty Services Required 3 [phone] Question Answer Referral Priority Within 30 days (routine) Where should this appointment be scheduled? [facility] What is the patient being referred for? Urinary Concerns Reason for Visit * Reason Onset Date Comments Test Results 09/28/2023 PSA Result Encounter Details Date Type Department Care Team (Late st Contact Info) Description 09/28/2023 Telephone [facility] [address] [place] [address] Tacho Dorsey MD [address] [place] [address] Test Results (PSA Result) Allergies No known active allergiesdocumented as of this encounter (statuses as of 09/29/2023) Medications Medication Sig Dispensed Refills Start Date [...] AT BEDTIME 90 Tablet 3 09/20/2023 Active documented as of this encounter (statuses as of 09/29/2023) Active Problems Problem Noted Date Diagnosed Date [...] as of this encounter (statuses as of 09/29/2023) Resolved Problems Problem Noted Date Diagnosed Date [...] infarction 8 08/30/2017 Venous 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/2017 termination clerk current use of ant icoagulant therapy 09/04/2008 12/30/2008 Overview: ICD-10 update of inactive term Anticoagulation management encounter 09/04/2008 12/30/2008 ADVANCE DIRECTIVE INFORMATION 08/30/2008 08/30/2017 Overview: Yes, advised to provide copy to PCP Cerebrovascular event, ill-d efined, within last 8 weeks 08/30/2008 01/30/2009 Overview: Modified per CVA protocol #8 HTN, goal below 150/90 01/09 documented as of this encounter (statuses as of 09/29/2023) Immunizations Name Administration Dates Next Due COVID-19 mRNA, LNP-s, No Pre serve, 2-Dose Series (Logic[employer]) 01/16/2021,12/26/2020 Pneumococcal Conjugate Vacc, 13 Valent (Prevnar) [...] on file documented as of this encounter Miscellaneous Notes * Telephone Encounter - Ashley Harkins LPN - 09/29/2023 12:17 PM EST Patient's daughter Sharri aware and verbalized understanding. She will bring in a urine specimen tomorrow. Please contact to schedule the urology appt. * Telephone Encounter - Amalia Moya LPN - 09/29/2023 9:17 AM EST Attempted to call patient/parent. Message left on answering machine to return call. Please give below message from Dr Dorsey. * Telephone Encounter - Tacho Dorsey MD - 09/28/2023 2:46 PM EST Can notify that the recent PSA was 6.66. This is down from 36.47 in February. This indicates that the episode in February was likely prostatitis as the PSA improved so dramatically with treatment of that. If he is struggling with urinary symptoms again, would suggest urine studies (ordered) and referralto urology (ordered). * Telephone Encounter - Luis Beltran CMA - 09/28/2023 2:24 PM EST Authorization on file under media tab. Daughter states she is concerned cause he's having a lot of incontinence, daughter is asking for Provider to review PSA level and advised next step * Telephone Encounter - Angelica Cao OSA - 09/28/2023 2:05 PM EST Daughter Sharri calling for PSA Result - Stated she is known and is his POA, MEE was unable to find active POA on file. Please return call. documented in this encounter Plan of Treatment Upcoming Encounters Date Type Department Care Team (Late st Contact Info) Description 03/27/2024 2:40 PM EDT Office Visit [address] [address] Tacho Dorsey MD [address], [place] [id number] Scheduled Orders Name Type Priority Associated Diagnoses Orde r Schedule URINALYSIS, REFLEX TO MICROSCOPIC Lab Routine Urinary incontinence, unspecified type Expected: 09/28/2023, Expires: 09/28/2024 CULTURE, URINE, QUANTITATIVE Lab Routine Urinary incontinence, unspecified type Expected: 09/28/2023, Expires: 09/28/2024 Scheduled Referrals Name Type Priority Associated Diagnoses Orde r Schedule UROLOGY REFERRAL OP Referral Within 30 da ys (routine) Urinary incontinence, unspecified type Elevated prostate specific antigen (PSA) Ordered: 09/28/2023 Health Maintenance Due Date Last Done Comments Zoster Vaccines (1 of 2) 1988 Depression Screening 01/26/2022 01/26/2021 DTaP,Tdap,and Td Vaccines (2 - Td or Tdap) 01/09/2023 01/09/2013 COVID-19 Vaccine (3 - season) 2023 01/16/2021, 12/26/2020 Albumin/Creatinine Ratio 09/06/2023 09/06/2022 CKD PHOS USE SMARTSET 62114 09/06/202308/18, 07/28/2021, 07/31/2020, Additional history exists CKD HGB USE SMARTSET 65252 07/19/202407/19, 07/12/2023, 07/05/2023, Additional history exists Pneumococcal [...] as of this encounter Visit Diagnoses Diagnosis Urinary incontinence, unspecified type- Primary Elevated prostate specific antigen (PSA) documented in this encounter Care Teams Mushroom Farmer Relationship Specialty Start Date End Date Tacho Dorsey MD [address] [place] [address] PCP - General 09/16/08 documented as of this encounter
--- OUTSIDE RECORDS SUMMARY | 2023-12-04 18:19 | External Medical Summary ---
Author Name Unknown Address Unknown Organization [id number][place] [place] [address] [place] [address] Laboratory Report Ordering Provider Test Date Status DAVID VIDES 09/20/2023 15:31:57 Final Observation Date Value Abnormality Reference (Units ) Status PSA 09/20/2023 15:31:57 6.66 Above high normal <4 .10 (ng/mL) Final Performing Location [facility] [place] [address] [place] [address]
--- OUTSIDE RECORDS SUMMARY | 2023-12-04 18:19 | External Medical Summary | Summary of Care ---
Author Name Unknown Organization [facility] Address [address] [place] [facility] [place] [address] Phone [phone] Care Team Providers Care Continuity Editor Name Role Phone Tacho Dorsey MD Primary Care Provider +1- [phone] Reason for Visit * Reason Comments Outpatient Testing Encounter Details Date Type Department Care Team Description 07/12/2023 Laboratory Laboratory, [address] [address] [address], Specimen Drop Off [address] [address] Arrived Allergies No known active allergiesdocumented as of this encounter (statuses as of 07/12/2023) Medications Medication Sig Dispensed Refills Start Date End Date Status Simvastatin 20 MG Oral Tablet (Zocor)Indications:D yslipidemia, goal LDL below 100 TAKE 1 TABLET BY MOUTH EVERYDAY AT BEDTIME 90 Tablet 3 09/23/2022 Active Lisinopril 20 MG Oral Tablet (Prinivil)Indication s:Essential hypertension with goal blood pressure less than 140/90 TAKE 1 TABLET BY MOUTH EVERY DAY 90 Tablet 3 09/23/2022 Active amLODIPine Besylate 5 MG Oral Tablet (Norvasc)Indications :HTN, goal below 140/90 TAKE 1 TABLET BY MOUTH EVERY DAY 90 Tablet 3 09/23/2022 Active Apixaban 5 MG Oral Tablet (Eliquis)Indications :Confirmed [...] before bedtime. For 6 weeks. 0 Active documented as of this encounter (statuses as of 07/12/2023) Active Problems Problem Noted Date History of amputation of left great toe 06/21/2023 Atrial fibrillation 04/28/2023 Hemiplegia and hemiparesis f ollowing cerebral infarction affecting right dominant side 11/30/2022 History of cerebrovascular accident 12/2020 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 2020 Anticoagulated 05/19/2021 Chronic kidney disease, stage 3a 021 Overview: Per CKD protocol Benign hypertension with stage 3a chroni c kidney disease 02/24/2021 Overview: Per CKD protocol Hemiplegia, unspecified affecting right dominant side 01/26/2021 Foot drop, right foot 10/18/2019 HTN, goal below 140/90 01/09/2018 History of pulmonary embolism 08/30/2017 Dyslipidemia, goal LDL below 100 011 Cerebrovascular disease, arterioscleroti c, post-stroke 01/28/2009 Overview: Modified per CVA protocol #8 documented as of this encounter (statuses as of 07/12/2023) Resolved Problems Problem Noted Date Resolved Date Transient ischemic attack 05/19/20212021 Overview: Not current TIA-Hx on PL Benign hypertension with chronic kidney disease, stage III 01/09/2018 02/26/2021 Overview: Per CKD protocol Postural dizziness with presyncope 06/17/2016 08/26/2016 Hypotension 06/17/2016 08/26/2016 Kidney disease, chronic, stage III (GFR 30-59 ml /min) 12/10/2013 01/24/2019 Overview: Per CKD protocol #1 HTN, goal below 140/90 01/05/2012 6 Dyslipidemia, goal to be determined 10/22/2008 07/06/2011 Iatrogenic pulmonary embolism and infarction 08/30/2017 Venous 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/2017 half-way current use of anticoagulant therapy 1 11/04/2007 12/30/2008 Overview: ICD-10 update of inactive term Anticoagulation management encounter 09/04/2008 12/30/2008 ADVANCE DIRECTIVE INFORMATION 08/30/2008 Overview: Yes, advised to provide copy to PCP Cerebrovascular event, ill-defined, within last 8 weeks 08/30/2008 01/30/2009 Overview: Modified per CVA protocol #8 HTN, goal below 150/90 8 documented as of this encounter (statuses as of 07/12/2023) Immunizations Name Administration Dates Next Due COVID-19 mRNA, LNP-s, No Pre serve, 2-Dose Series ([employer]) 01/16/2021,12/26/2020 Pneumococcal Conjugate Vacc, 13 Valent (Prevnar) 08/25/2015 Pneumococcal Polysaccharide PPV23 (Pneumovax) 07/31/2008 Season Influenza, Quad, PF, Adjuvanted, 65+ Yrs, IM (FLUAD) 07/28/2020 Seasonal Influenza, PF, 6 mo ns & Above, IM , (Flulaval) 07/16/2019,07/12/2018,08/30/2017 Seasonal Influenza, Quadriva lent Hd (Fluzone Hd) 09/06/2022,07/28/2021 Seasonal Influenza, Quadriva lent, No Preserve, IM 07/20/2016 Seasonal Influenza, Split, I IV3, With Preserve, Inj 07/07/2015,08/24/2014,07/10/2013,06/18,07/06/2011,07/01/2010,07/29/20,07/31/2008 08/24/2015 TDAP (age 10 and older)(Boostrix) 01/09/2013 documented as of this encounter Social History Tobacco Use Types Packs/Day Years Used Date Smoking Tobacco: Never Smokeless Tobacco: Never Alcohol Use Standard Drinks/Week Comments No 0 (1 standard drink = 0.6 oz pur e alcohol) Food Insecurity Answer Date Recorded Within the past 12 months, y ou worried that your food would run out before you got money to buy more. Never true 07/16/2019 Within the past 12 months, t he food you bought just didn't last and you didn't have money to get more. Never true 07/16/2019 Sex Assigned at Date Recorded Male 01/10/2019 10:15 AM EDT Job Start Date Occupation Industry Not on file Not on file Not on file documented as of this encounter Plan of Treatment Upcoming Encounters Date Type Specialty Care Team Description 09/20/2023 Office Visit Family Medicine Tacho Dorsey MD [address] [place] [address] Health Maintenance Due Date Last Done Comments Zoster Vaccines (1 of 2) 1990 COVID-19 Vaccine (3 - Pfizer series) 03/13/2021 01/16/2021, 12/26/2020 Depression Screening 01/26/2022 01/26/2021 DTaP,Tdap,and Td Vaccines (2 - Td or Tdap) 01/09/2023 01/09/2013 Influenza Vaccine (FLU shot) (#1) 2023 09/06/2022, 07/28/2021, 07/28/2020, Additional history exists Albumin/Creatinine Ratio 09/06/2023 09/06/2022 CKD PHOS USE SMARTSET 57962 09/06/2023/10/2021, 07/28/2021, 07/31/2020, Additional history exists CKD HGB USE SMARTSET 98529 07/05/202407/05, 06/29/2023, 06/21/2023, Additional history exists Pneumococcal Vaccine: 65+ Years Completed 08/25/2015, 07/31/2008 GARDASIL-HPV IMMUNIZATION SERIES Aged Out No longer eligible based on patient's age to complete this topic Hepatitis B Aged Out No longer eligi ble based on patient's age to complete this topic MENINGOCOCCAL (MENACTRA/MENVEO) Aged Out No longer eligible based on patient's age to complete this topic documented as of this encounter Medical Devices Not on filedocumented as of this encounter Care Teams Continuity Editor Relationship Specialty Start Date End Date Tacho Dorsey MD [address] [place] [address] PCP - General 09/16/08 documented as of this encounter
--- OUTSIDE RECORDS SUMMARY | 2023-12-04 18:19 | External Medical Summary | Summary of Care ---
Author Name Unknown Organization [facility] Address [address] [facility] [place] [address] Phone [phone] Care Team Providers Care Product Safety Technical Assistant Name Role Phone Tacho Dorsey MD Primary Care Provider +1- [phone] Encounter Details Date Type Department Care Team (Late st Contact Info) Description 11/24/2023 Orders Only PATIENT PORTAL DO NOT DELETE THIS DEPT USED BY [place] [id number] Allergies No known active allergiesdocumented as of this encounter (statuses as of 11/24/2023) Medications Medication Sig Dispensed Refills Start Date [...] as of this encounter (statuses as of 11/24/2023) Active Problems Problem Noted Date Diagnosed Date [...] as of this encounter (statuses as of 11/24/2023) Resolved Problems Problem Noted Date Diagnosed Date [...] infarction 8 08/30/2017 Venous 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/2017 mold injector current use of ant icoagulant therapy 09/04/2008 12/30/2008 Overview: ICD-10 update of inactive term Anticoagulation management encounter 09/04/2008 12/30/2008 ADVANCE DIRECTIVE INFORMATION 08/30/2008 08/30/2017 Overview: Yes, advised to provide copy to PCP Cerebrovascular event, ill-d efined, within last 8 weeks 08/30/2008 01/30/2009 Overview: Modified per CVA protocol #8 HTN, goal below 150/90 01/09 documented as of this encounter (statuses as of 11/24/2023) Immunizations Name Administration Dates Next Due COVID-19 mRNA, LNP-s, No Pre serve, 2-Dose Series ([employer]) 01/16/2021,12/26/2020 Pneumococcal Conjugate Vacc, 13 Valent (Prevnar) [...] Description 11/25/2023 9:00 AM EST Appointment Radiology, [facility] [address] [place] [address] 12/06/2023 2:45 PM EST Procedure Only Urology [facility] Chasidy Graves [address] [place] [address] [address] [place] [address] Johnathan Larsen MD [address] [place] [address] 03/27/2024 2:40 PM EDT Office Visit [facility] [address] [place] [address] Tacho Dorsey MD [address] [place] [address] Health Maintenance Due Date Last Done Comments Zoster Vaccines (1 of 2) 1990 Depression Screening 01/26/2022 01/26/2021 DTaP,Tdap,and Td Vaccines (2 - Td or Tdap) 01/09/2023 01/09/2013 COVID-19 Vaccine ( season) 2023 01/16/2021, 12/26/2020 Albumin/Creatinine Ratio 09/06/2023 09/06/2022 CKD PHOS USE SMARTSET 13128 09/06/202308/18, 07/28/2021, 07/31/2020, Additional history exists CKD HGB USE SMARTSET 97182 07/19/202407/19, 07/12/2023, 07/05/2023, Additional history exists Pneumococcal [...] filedocumented as of this encounter Care Teams Product Safety Technical Assistant Relationship Specialty Start Date End Date Tacho Dorsey MD [address] [place] [address] PCP - General 09/16/08 documented as of this encounter
--- OUTSIDE RECORDS SUMMARY | 2023-12-04 18:19 | External Medical Summary | Summary of Care ---
Author Name Unknown Organization [facility] Address [address] [facility] [place] [address] Phone [phone] Care Team Providers Care Director Of Construction Name Role Phone Tacho Dorsey MD Primary Care Provider +1- [phone] Reason for Visit * Reason Onset Date Comments Health Maintenance 10/18/2023 Encounter Details Date Type Department Care Team (Late st Contact Info) Description 10/18/[address] [facility] [address] [place] [address] Tacho Dorsey MD [address] [place] [address] Health Maintenance Allergies No known active allergiesdocumented as of this encounter (statuses as of 10/18/2023) Medications Medication Sig Dispensed Refills Start Date [...] as of this encounter (statuses as of 10/18/2023) Active Problems Problem Noted Date Diagnosed Date [...] as of this encounter (statuses as of 10/18/2023) Resolved Problems Problem Noted Date Diagnosed Date [...] infarction 8 08/30/2017 Venous 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/2017 detention current use of ant icoagulant therapy 09/04/2008 12/30/2008 Overview: ICD-10 update of inactive term Anticoagulation management encounter 09/04/2008 12/30/2008 ADVANCE DIRECTIVE INFORMATION 08/30/2008 08/30/2017 Overview: Yes, advised to provide copy to PCP Cerebrovascular event, ill-d efined, within last 8 weeks 08/30/2008 01/30/2009 Overview: Modified per CVA protocol #8 HTN, goal below 150/90 01/09 documented as of this encounter (statuses as of 10/18/2023) Immunizations Name Administration Dates Next Due COVID-19 mRNA, LNP-s, No Pre serve, 2-Dose Series ([employer]) 01/16/2021,12/26/2020 Pneumococcal Conjugate Vacc, 13 Valent (Prevnar) [...] encounter Miscellaneous Notes * Telephone Encounter - Sherin Larsen LPN - 10/18/2023 11:35 AM EST Care Gaps Comprehensive Care Outreach Last Office/Telemedicine Visit: 09/20/2023 (in office), 05/05/2023 (telemedicine) Next Office Visit: 03/27/2024 Hemoglobin AIC Results: No results found for: "HEMOGLOBIN A1C" Reviewed Health Maintenance below: Health Maintenance Topic Date Due Zoster Vaccines (1 of 2) Never done Depression Screening 01/26/2022 DTaP,Tdap,and Td Vaccines (2 - Td or Tdap) 01/09/2023 COVID-19 Vaccine (3 - 2022-24 season) 2023 Albumin/Creatinine Ratio 09/06/2023 CKD PHOS USE SMARTSET 90801 09/06/2023 Care Gap Outreach Action Taken: Left message documented in this encounter Plan of Treatment Upcoming Encounters Date Type Department Care Team (Late st Contact Info) Description 11/23/2023 1:00 PM EST Office Visit Urology, [facility] [address] [place] [address] Mayuri Vasquez PA-C [address] [place] [address] 03/27/2024 2:40 PM EDT Office [facility] [address] [facility] [address] Tacho Dorsey MD [address] [facility] [place] [address] Health Maintenance Due Date Last Done Comments Zoster Vaccines (1 of 2) 1990 Depression Screening 01/26/2022 01/26/2021 DTaP,Tdap,and Td Vaccines (2 - Td or Tdap) 01/09/2023 01/09/2013 COVID-19 Vaccine (3 - season) 2023 01/16/2021, 12/26/2020 Albumin/Creatinine Ratio 09/06/2023 09/06/2022 CKD PHOS USE SMARTSET 82570 09/06/202308/18, 07/28/2021, 07/31/2020, Additional history exists CKD HGB USE SMARTSET 48224 07/19/202407/19, 07/12/2023, 07/05/2023, Additional history exists Pneumococcal [...] filedocumented as of this encounter Care Teams Director Of Construction Relationship Specialty Start Date End Date Tacho Dorsey MD [address] [place] [address] PCP - General 09/16/08 documented as of this encounter
--- OUTSIDE RECORDS SUMMARY | 2023-12-04 18:19 | External Medical Summary | Summary of Care ---
Author Name Unknown Organization [facility] Address [address] [facility] [place] [address] Phone [phone] Care Team Providers Care Digital Media Producer Name Role Phone Tacho Dorsey MD Primary Care Provider +1- [phone] Encounter Details Date Type Department Care Team Description 07/20/2023 Orders Only [facility] [address] [place] [address] Tacho Dorsey MD [address] [place] [address] Allergies No known active allergiesdocumented as of this encounter (statuses as of 07/20/2023) Medications Medication Sig Dispensed Refills Start Date [...] as of this encounter (statuses as of 07/20/2023) Active Problems Problem Noted Date History of [...] as of this encounter (statuses as of 07/20/2023) Resolved Problems Problem Noted Date Resolved Date [...] and infarction 08/30/2017 Venous 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/2017 FPC current use of anticoagulant therapy 1 11/04/2007 12/30/2008 Overview: ICD-10 update of inactive term Anticoagulation management encounter 09/04/2008 12/30/2008 ADVANCE DIRECTIVE INFORMATION 08/30/2008 Overview: Yes, advised to provide copy to PCP Cerebrovascular event, ill-defined, within last 8 weeks 08/30/2008 01/30/2009 Overview: Modified per CVA protocol #8 HTN, goal below 150/90 8 documented as of this encounter (statuses as of 07/20/2023) Immunizations Name Administration Dates Next Due COVID-19 mRNA, LNP-s, No Pre serve, 2-Dose Series (Pfizer) 01/16/2021,12/26/2020 Pneumococcal Conjugate Vacc, 13 Valent (Prevnar) 08/25/2015 Pneumococcal Polysaccharide PPV23 (Pneumovax) 07/31/2008 SEASONAL INFLUENZA, PF, 6 M & Above, IM , (FLULAVAL or FLUZONE) 07/16/2019,07/12/2018,08/30/2017 Season Influenza, Quad, PF, Adjuvanted, 65+ Yrs, IM (FLUAD) 07/28/2020 Seasonal Influenza, Quadriva lent Hd (Fluzone Hd) [...] Family Medicine Tacho Dorsey MD [address] [place] [address] Health Maintenance Due Date Last Done Comments Zoster Vaccines (1 of 2) 1990 Depression Screening 01/26/2022 01/26/2021 DTaP,Tdap,and Td Vaccines (2 - Td or Tdap) 01/09/2023 01/09/2013 COVID-19 Vaccine (3 - 2022- season) 2023 01/16/2021, 12/26/2020 Influenza Vaccine (FLU shot) (#1) 2023 09/06/2022, 07/28/2021, 07/28/2020, Additional history exists Albumin/Creatinine Ratio 09/06/2023 09/06/2022 CKD PHOS USE SMARTSET 49881 09/06/2023 11/10/2021, 07/28/2021, 07/31/2020, Additional history exists CKD HGB USE SMARTSET 18158 07/12/202407/19, 07/12/2023, 07/05/2023, Additional history exists Pneumococcal Vaccine: [...] Procedure Name Priority Date/Time Associated Diagnosis Comments CHEMISTRY-OUTSIDE Routine 07/19/2023 documented in this encounter Results * (ABNORMAL) CHEMISTRY-OUTSIDE (07/19/2023) Not all results display below - see scan for full detail OUTSIDE LAB (SEE SCANNED REPORT) Comment:SCAN INCLUDES-BMP,CR P,CBC,SED RATE CREATININE-OUTSID E LAB 1.05 0.6 - 1.4 MG/DL OUTSIDE LAB (SEE SCANNED REPORT) EGFR-OUTSIDE LAB 64.4 ML/MIN OUT SIDE LAB (SEE SCANNED REPORT) POTASSIUM-OUTSIDE LAB 4.2 3.5 - 5.1 MMOL/L OUTSIDE LAB (SEE SCANNED REPORT) GLUCOSE-OUTSIDE LAB 83 70 - 99 MG/DL OUTSIDE LAB (SEE SCANNED REPORT) HOURS FASTING OUTSID E LAB (SEE SCANNED REPORT) TRIGLYCERIDES-OUT SIDE LAB OUTSIDE LAB (SEE SCANNED REPORT) CHOLESTEROL-OUTSI DE LAB OUTSIDE LAB (SEE SCANNED REPORT) HDL-OUTSIDE LAB OUTS [facility] (SEE SCANNED REPORT) CHOL/HDL RATIO-OUTSIDE LAB OUTSIDE [facility] (SEE SCANNED REPORT) LDL (CALCULATED)-OUTS [facility] OUTSIDE LAB (SEE SCANNED REPORT) LDL (DIRECT MEASURE)-OUTSIDE LAB OUTSIDE LAB (SEE SCANNED REPORT) HEMOGLOBIN, R7X-[id number] LAB OUTSIDE LAB (SEE SCANNED REPORT) PHOSPHORUS-OUTSID E LAB OUTSIDE LAB (SEE SCANNED REPORT) PTH-OUTSIDE LAB OUTS [facility] (SEE SCANNED REPORT) MICROALBUMIN RATIO-OUTSIDE LAB OUTSIDE [facility] (SEE SCANNED REPORT) PROTEIN, UA-OUTSIDE LAB OUTSIDE LAB (SEE SCANNED REPORT) HEMOGLOBIN-OUTSID E LAB 12.3(A) 14.0 - 18.0 OUTSIDE LAB (SEE SCANNED REPORT) 07/19/2023 Tacho Dorsey MD LABORATORY OUTSIDE LAB (SEE SCANNED REPORT) documented in this encounter Care Teams Digital Media Producer Relationship Specialty Start Date End Date Tacho Dorsey MD [address] [place], [place] [id number] PCP - General 09/16/08 documented as of this encounter
--- OUTSIDE RECORDS SUMMARY | 2023-12-04 18:19 | External Medical Summary | Summary of Care ---
Author Name Unknown Organization [facility] Address [address] [facility] [place] [address] Phone [phone] Care Team Providers Care Mattress And Boxsprings Supervisor Name Role Phone Tacho Dorsey MD Primary Care Provider +1- [phone] Reason for Visit * Reason Onset Date Comments Advice 07/19/2023 Encounter Details Date Type Department Care Team Description 07/19/2023 Telephone [facility] [address] [place] [address] Tacho Dorsey MD [address] [place] [address] Advice Allergies No known active allergiesdocumented as of [...] and infarction 08/30/2017 Venous 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/2017 assisted current use of anticoagulant therapy 1 11/04/2007 [...] mRNA, LNP-s, No Pre serve, 2-Dose Series ([employer]) 01/16/2021,12/26/2020 Pneumococcal Conjugate Vacc, 13 Valent (Prevnar) [...] encounter Miscellaneous Notes * Telephone Encounter - Tasia Lloyd LPN - 07/20/2023 3:36 PM EDT Called and gave verbal order to [facility] * Telephone Encounter - ERICH Marroquin - 07/20/2023 3:25 PM EDT Called the patient, daughter picked up she is aware, and verbalizes an understanding. * Telephone Encounter - Tacho Dorsey MD - 07/20/2023 3:04 PM EDT Can d/c IV when abc complete on 07/22. * Telephone Encounter - MEE Hendricks - 07/20/2023 9:53 AM EDT Patient calling in to check on the status of previous message. Patient Called within 48 hour timeframe. Reminded patient of 48 hour turn-around time. * Telephone Encounter - MEE Pizano - 07/19/2023 9:16 AM EDT Ellie from [facility] called stating patient is receiving IV antibiotics till 07/22/23. Need to confirm if IV needs to be removed on 07/22/23 Ellie can be contacted at documented in this encounter Plan of Treatment Upcoming Encounters Date Type Specialty Care Team Description 09/20/2023 Office Visit Family Medicine Tacho Dorsey MD [address] [place] [address] Health Maintenance Due Date Last Done Comments Zoster Vaccines (1 of 2) 1990 Depression Screening 01/26/2022 01/26/2021 DTaP,Tdap,and Td Vaccines (2 - Td or Tdap) 01/09/2023 01/09/2013 COVID-19 Vaccine (3 - 2022- season) 2023 01/16/2021, 12/26/2020 Influenza Vaccine (FLU shot) (#1) 2023 09/06/2022, 07/28/2021, 07/28/2020, Additional history exists Albumin/Creatinine Ratio 09/06/2023 09/06/2022 CKD PHOS USE SMARTSET 16822 09/06/202308/18, 07/28/2021, 07/31/2020, Additional history exists CKD HGB USE SMARTSET 19723 07/19/202407/19, 07/12/2023, 07/05/2023, Additional history exists Pneumococcal [...] filedocumented as of this encounter Care Teams Matt[employer] Boxsprings Supervisor Relationship Specialty Start Date End Date Tacho Dorsey MD [address] [place] [address] PCP - General 09/16/08 documented as of this encounter
--- OUTSIDE RECORDS SUMMARY | 2023-12-04 18:19 | External Medical Summary | Summary of Care ---
Author Name Unknown Organization [facility] Address [address] [facility] [place] [address] Phone [phone] Care Team Providers Care Service Inspector Name Role Phone Tacho Dorsey MD Primary Care Provider +1- [phone] Encounter Details Date Type Department Care Team (Late st Contact Info) Description 03/17/2023 Population Health External Data Unspecified Department Allergies No known active allergiesdocumented as of this encounter (statuses as of 08/29/2023) Medications Medication Sig Dispensed Refills Start Date End Date Status Simvastatin 20 MG Oral Tablet (Zocor)Indications:Dy slipidemia, goal LDL below 100 TAKE 1 TABLET BY MOUTH EVERYDAY AT BEDTIME 90 Tablet 3 09/23/2022 Active Lisinopril 20 MG Oral Tablet (Prinivil)Indications :Essential hypertension with goal blood pressure less than 140/90 TAKE 1 TABLET BY MOUTH EVERY DAY 90 Tablet 3 09/23/2022 Active amLODIPine Besylate 5 MG Oral Tablet (Norvasc)Indications: HTN, goal below 140/90 TAKE 1 TABLET BY MOUTH EVERY DAY 90 Tablet 3 09/23/2022 Active documented as of this encounter (statuses as of 08/29/2023) Active Problems Problem Noted Date Diagnosed Date [...] as of this encounter (statuses as of 08/29/2023) Resolved Problems Problem Noted Date Diagnosed Date [...] infarction 8 08/30/2017 Venous 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/2017 care home current use of ant icoagulant therapy 09/04/2008 12/30/2008 Overview: ICD-10 update of inactive term Anticoagulation management encounter 09/04/2008 12/30/2008 ADVANCE DIRECTIVE INFORMATION 08/30/2008 08/30/2017 Overview: Yes, advised to provide copy to PCP Cerebrovascular event, ill-d efined, within last 8 weeks 08/30/2008 01/30/2009 Overview: Modified per CVA protocol #8 HTN, goal below 150/90 01/09 documented as of this encounter (statuses as of 08/29/2023) Immunizations Name Administration Dates Next Due COVID-19 [...] 01/26/2021 Hunger Vital Sign Answer Date Recorded Worried About Running Out of Food in the Last Ye ar Never true 07/16/2019 Ran Out of Food in the Last Year Never true 07/16/2019 Sex and Gender Information Value Date Recorded Sex Assigned at Male 01/10/2019 10:15 AM EDT Gender Identity Male 01/10/2019 10:15 AM EDT Sexual Orientation Not on file Job Start Date Occupation Industry Not on file Not on file Not on file documented as of this encounter Plan of Treatment Upcoming Encounters Date Type Department Care Team (Late st Contact Info) Description 09/20/2023 2:40 PM EST Office Visit [facility] [address] [facility] [phone] Tacho Dorsey MD [address] [place] [facility] [place] [address] Health Maintenance Due Date Last Done Comments Zoster Vaccines (1 of 2) 1990 Depression Screening 01/26/2022 01/26/2021 DTaP,Tdap,and Td Vaccines (2 - Td or Tdap) 01/09/2023 01/09/2013 COVID-19 Vaccine (3 - 2022- season) 2023 01/16/2021, 12/26/2020 Influenza Vaccine (FLU shot) (#1) 2023 09/06/2022, 07/28/2021, 07/28/2020, Additional history exists Albumin/Creatinine Ratio 09/06/2023 09/06/2022 CKD PHOS USE SMARTSET 54998 09/06/202308/18, 07/28/2021, 07/31/2020, Additional history exists CKD HGB USE SMARTSET 16051 07/19/202407/19, 07/12/2023, 07/05/2023, Additional history exists Pneumococcal [...] filedocumented as of this encounter Care Teams Service Inspector Relationship Specialty Start Date End Date Tacho Dorsey MD [address] [facility] [address] PCP - General 09/16/08 documented as of this encounter
--- OUTSIDE RECORDS SUMMARY | 2023-12-04 18:19 | External Medical Summary | Summary of Care ---
Author Name Unknown Organization [facility] Address [address] [facility] [place] [address] Phone [phone] Care Team Providers Care Laundry Sorter Name Role Phone Tacho Dorsey MD Primary Care Provider [phone]- [phone] Reason for Visit * Reason Comments Follow Up Needs refills on pre scriptions Encounter Details Date Type Department Care Team (Late st Contact Info) Description 09/20/2023 2:40 PM EST Office Visit [facility] [address] [place] [address] Tacho Dorsey MD [address] [place] [address] HTN, goal below 140/90*; Risk and functional assessment; Elevated prostate specific antigen (PSA); Essential hypertension with goal blood pressure less than 140/90; Dyslipidemia, goal LDL below 100; Atrial fibrillation, unspecified type (HCC); Cerebrovascular disease, arteriosclerotic, post-stroke; Chronic kidney disease, stage 3a (HCC); 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 180 Tablet 3 3 Active Metoprolol Tartrate 25 MG Oral Tablet (Lopressor) Take 0.5 Tablets by mouth in the morning and 0.5 Tablets before bedtime. 90 Tablet 3 3 Active Probiotic Advanced Oral Capsule Take 2 [...] mouth in the morning. 90 Tablet 3 3 Active Lisinopril 20 MG Oral Tablet (Prinivil)Indication s:Essential hypertension with goal blood pressure less than 140/90 Take 1 Tablet by mouth in the morning. 90 Tablet 3 3 Active Simvastatin 20 MG Oral Tablet (Zocor)Indications:D yslipidemia, goal LDL below 100 TAKE 1 TABLET BY MOUTH EVERYDAY AT BEDTIME 90 Tablet 3 3 Active Simvastatin 20 MG Oral Tablet (Zocor)Indications:D yslipidemia, goal LDL below 100 TAKE 1 TABLET BY MOUTH EVERYDAY AT BEDTIME 90 Tablet 3 2 09/20/20 23 Discontinu ed(Refill) Lisinopril 20 MG Oral Tablet (Prinivil)Indication s:Essential hypertension with goal blood pressure less than 140/90 TAKE 1 TABLET BY MOUTH EVERY DAY 90 Tablet 3 2 09/20/20 23 Discontinu ed(Refill) amLODIPine Besylate 5 MG Oral Tablet (Norvasc)Indications :HTN, goal below 140/90 TAKE 1 TABLET BY MOUTH EVERY DAY 90 Tablet 3 2 09/20/20 23 Discontinu ed(Refill) documented as of this encounter (statuses as of 10/09/2023) Active Problems Problem Noted Date Diagnosed Date [...] as of this encounter (statuses as of 10/09/2023) Resolved Problems Problem Noted Date Diagnosed Date [...] as of this encounter (statuses as of 10/09/2023) Immunizations Name Administration Dates Next Due COVID-19 [...] Date Smoking Tobacco: Never Smokeless Tobacco: Never Tobacco Cessation:Counseling Given: Not Answered Alcohol Use Standard Drinks/Week Comments No 0 [...] Sign Reading Time Taken Comments Blood Pressure 142/68 09/20/2023 2:18 PM EST Pulse 74 09/20/2023 2:18 PM EST Temperature 36.4 C (97.5 F) 09/20/2023 2:18 PM ES T Respiratory Rate 17 09/20/2023 2:18 PM EST Oxygen Saturation 99% 09/20/2023 2:18 PM EST Inhaled Oxygen Concentration - - Weight - - Height - - Body Mass Index - - documented in this encounter Patient Instructions * Patient Instructions* Bruna AguirreNANCY - 09/20/2023 2:26 PM EST Patient Instructions - Fall Prevention (This education is for all patients over 65 regardless of symptoms) Remember to take your current medications as prescribed. In order to prevent falls, you are encouraged to: Exercise Utilize assistive/adaptive devices Avoid multifocal lenses when walking Avoid hazards in home Maintain a regular toileting schedule Any questions please contact our office. Preventing Falls in the Home (This education is for all patients over 65 regardless of symptoms) As you get older, falls are more likely. Thats because your reaction time slows. Your muscles and joints may also get stiffer, making them less flexible. Illness, medications, and vision changes can also affect your balance. A fall could leave you unable to live on your own. To make your home safer, follow these tips: Floors Put nonskid pads under area rugs Remove throw rugs Replace worn floor coverings Tack carpets firmly to each step on carpeted stairs. Put nonskid strips on the edges of uncarpeted stairs Keep floors and stairs free of clutter and cords Arrange furniture so there are clear pathways Clean up any spills right away Bathrooms Install grab bars in the tub or shower Apply nonskid strips or put a nonskid rubber mat in the tub or shower Sit on a bath chair to bathe Use bathmats with nonskid backing Lighting Keep a flashlight in each room Put a nightlight along the pathway between the bedroom and the bathroom [employer] Patient Education Copyright 2008 - 2010 [employer] except where otherwise noted Preventing Falls: Exercises to Improve Balance, Flexibility, Strength, and Staying Power (This education is for all patients over 65 regardless of symptoms) Certain types of exercises may help make you less likely to fall. Try the ones below. Or do other exercises that your healthcare provider suggests. Depending on your health, you may need to start slowly. Dont let that stop you. Even small amounts of exercise can help you. Be sure to talk to yourhealthcare provider before starting any exercise program. Improve Balance Many types of exercise can help improve balance. Ole chi and yoga are good examples. Heres another one to try. You can do it anytime and almost anywhere. Stand next to a counter or solid support. Push yourself up onto your tiptoes. Hold for 5 seconds. If you start to lose your balance, hold on to the counter. Rest and repeat 5 times. Work up to holding for 20 to 30 seconds, if you can. Increase Flexibility Being more flexible makes it easier for you to move around safely. Try exercises like the seated hamstring stretch. Sit in a chair and put one foot on a stool. Straighten your leg and reach with both hands down either side of your leg. Reach as far down your leg as you can. Hold for about 20 seconds. Go back to the starting position. Then repeat 5 times. Switch legs. Build Strength Resistance exercises help build strength. You can do them without equipment. Or you can use weights, elastic bands, or special machines. One such exercise is called the biceps curl. You can hold a 1 pound weight or even a can of soup. Do this exercise at least 3 times a week. Strive for everyday. Sit up straight in a chair. Keep your elbow close to your body and your wrist straight. Bend your arm, moving your hand up to your shoulder. Then slowly lower your arm. Repeat 5 times. Switch to the other arm. Build Your Staying Power Aerobic exercises make your heart and lungs stronger so you can keep moving longer. Walking and swimming are two of the best types of exercises you can do. Using a stationary bike is great, too. Find an aerobic exercise that you enjoy. Start slowly and build up. Even 5 minutes is helpful. Aimfor a goal of 30 minutes, at least 3 times a week. You dont have to do 30 minutes in one session. Break it up and walk a little throughout the day. More Helpful Tips Start easy. Slowly work up to doing more. Talk with your healthcare provider about the best exercises for you. Call senior centers or health clubs about exercise programs. If needed, have a family member watch you walk every so often to check your stability. Exercise with a friend. Choose an activity you both enjoy. Try exercises that you can do anytime, anywhere. Here are two examples. Have someone with you when you first try these: Practice walking by placing one foot right in front of the other. Stand up and sit down 10 times. Repeat this throughout the day. [employer] Patient Education Copyright 2008 [employer] except where otherwise noted. Preventing Falls: Moving Safely Using a Cane or Walker (This education is for all patients over 65 regardless of symptoms) Keep the cane away from your feet so you dont trip. A walking aid, such as a cane or walker, can help you stay more independent and avoid falls. Remember to keep your walking aid within easy reach when youre in a chair or in bed. And learn how to use it safely so you dont injure yourself. Using a Cane If you have a stronger side, hold the cane on that side. Get your balance. Move the cane and your weaker leg forward. Support your weight on both the cane and your weaker side. Step with your stronger leg. Start again from step 1. If youre using a folding walker, be sure you know how to lock it open. Check that its locked open before each use. Using a Walker Roll the walker (or lift it, if youre using one without wheels) forward about 12 inches. Step forward with your weaker leg first. Use the walker to help keep your balance. Bring your other foot forward to the center of the walker. Start again from step 1. Helpful Tips Check with your healthcare provider about the right walking aid to use. Ask about a walker with a seat attached. Check the tips of your cane or walker to make sure they have nonskid covers. Move slowly from room to room. Dont gomez. Sit down to get dressed. Use a deepthi pack or backpack to keep your hands free. Get help for jobs that mean climbing, even on a stepstool. [employer] Patient Education Copyright 2008 [employer] except where otherwise noted. Treating Urinary Incontinence in Men (This education is for all patients over 65 regardless of symptoms) You can't always control the release of urine. You may leak urine. Or you may not be able to hold your urine until you can get to a bathroom. This is called urinary incontinence. The problem can be managed. Talk to your doctor about your treatment options. Taking Medications Prescription medications may help you. They may: Help the sphincter to work better. (This is the muscle that closes to keep urine from leaking out of the bladder.) Help stop the bladder from david too often to push urine out. Help the bladder muscles contract with more force. Help relax the sphincter muscle and allow urine to flow more freely. Making Changes to Your Routine Certain changes in your daily routine may help. These include: Avoiding caffeine and alcohol. Using timed voiding. This is following a schedule for drinking fluids and urinating. Doing Kegel exercises daily. These exercises involve tightening the muscles in your sphincter and around your bladder to help strengthen them. Your doctor can explain how to do them. Using a Catheter A catheter is a narrow tube that is inserted through the urethra into the bladder. It drains urine.A condom catheter covers the penis. It channels urine into a collection bag. It is worn most of thetime. Intermittent catheterization means inserting a catheter to drain the bladder, then removing it. This is done on a regular schedule. Having Surgery If other options don't work, surgery may be recommended. If surgery is an option, your healthcare provider can discuss it with you and explain its risks and benefits. Healing After Prostate Surgery Surgery on the prostate gland can cause incontinence. Most often, the incontinence is only for a short time. It clears up when healing is complete. Very rarely, prostate surgery can result in permanent incontinence. documented in this encounter Progress Notes * Tacho Dorsey MD - 10/09/2023 1:55 PM EST Subjective: Trung Coles is a 83 year old male here today for Chief Complaint Patient presents with Follow Up Needs refills on prescriptions Here for routine recheck. Tolerating current meds. Needs some refills. No current complaints. Denies chest pain, shortness of breath, cough, nausea, vomiting, abd pain, dysuria, urinary frequency, nocturia, fever, melena, hematochezia, peripheral edema. Past Medical History: Diagnosis Date Cerebrovascular event, ill-defined, within last 8 weeks Foot drop, right foot 10/18/2019 HTN, goal below 150/90 Other pulmonary embolism and infarction Phlebitis and thrombophlebitis of other deep vessels of lower extremities Transient ischemic attack 05/19/2021 Not current TIA-Hx on PL Past Surgical History: Procedure Laterality Date COLORECTAL CANCER SCREEN; NOT AT RISK 09/04/09 wnl Review of patient's allergies indicates: No Known [...] No current facility-administered medications for this visit. Objective: BP 142/68 | Pulse 74 | Temp 36.4 C (97.5 F) | Resp 17 | SpO2 99% GEN: NAD HEENT: Benign NECK: Supple with no LAD, TM, JVD CHEST: CTA B CV: RRR ABD: Soft, NT/ND, No HSM, NABS EXT: No c,c,e Assessment and Plan: HTN, goal below 140/90 (Primary) - amLODIPine Besylate 5 MG Oral Tablet (Norvasc); Take 1 Tablet by mouth in the morning. Risk and functional assessment Elevated prostate specific antigen (PSA) - PSA; Future; Expected date: 09/20/2023 Essential hypertension with goal blood pressure less than 140/90 - Lisinopril 20 MG Oral Tablet (Prinivil); Take 1 Tablet by mouth in the morning. 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 Influenza vac today. Follow Up: Return in about 6 months (around 03/21/2024) for recheck. | For: recheck 30 min with pt and chart review. Tacho Dorsey MD documented in this encounter Nursing Notes * Bruna Aguirre LPN - 09/20/2023 2:24 PM EST The patient has been properly identified by confirmation of name and date of . Chief Complaint Patient presents with Follow Up Needs refills on prescriptions documented in this encounter Plan of Treatment Upcoming Encounters Date Type Department Care Team (Late st Contact Info) Description 11/23/2023 1:00 PM EST [facility] [address] [place] [address] Mayuri Vasquez PA-C [address] [place] [id number] 03/27/2024 2:40 PM EDT Office Visit [facility] [address] [place] [address] Tacho Dorsey MD [address] [place] [address] Health Maintenance Due Date Last Done Comments Zoster Vaccines (1 of 2) 1988 Depression Screening 01/26/2022 01/26/2021 DTaP,Tdap,and Td Vaccines (2 - Td or Tdap) 01/09/2023 01/09/2013 COVID-19 Vaccine (3 - 2022- season) 2023 01/16/2021, 12/26/2020 Albumin/Creatinine Ratio 09/06/2023 09/06/2022 CKD PHOS USE SMARTSET 03557 09/06/202308/18, 07/28/2021, 07/31/2020, Additional history exists CKD HGB USE SMARTSET 48989 07/19/202407/19, 07/12/2023, 07/05/2023, Additional history exists Pneumococcal [...] Not on filedocumented as of this encounter Results * (ABNORMAL) PSA (09/20/2023 3:31 PM EST) PSA 6.66(H) <4.10 ng/mL 09/21/2023 3:31 AM EST [facility] Blood Venous blood specimen / Unknown Venipuncture / Unknown 09/20/2023 3:31 PM EST 09/20/2023 3:31 PM EST Tacho Dorsey MD LAB BLOOD ORDERABL ES [facility] [address] [place] [address] documented in this encounter Visit Diagnoses Diagnosis HTN, goal below 140/90- Primary Unspecified essential hypertension Risk and functional assessment Screening for unspecified condition Elevated prostate specific antigen (PSA) Essential hypertension with goal blood pressure less than 140/90 Dyslipidemia, goal LDL below 100 Other and unspecified hyperlipidemia Atrial fibrillation, unspecified type (HCC) Cerebrovascular disease, arteriosclerotic, post-stroke Cerebral atherosclerosis Chronic kidney disease, stage 3a (HCC) 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) documented in this encounter Care Teams Laundry Sorter Relationship Specialty Start Date End Date Tacho Dorsey MD [address] [place] [facility] [place] [address] PCP - General 09/16/08 documented as of this encounter"
--- OUTSIDE RECORDS SUMMARY | 2023-12-04 18:19 | External Medical Summary | Summary of Care ---
Author Name Unknown Organization [facility] Address [address] [place] [address] Phone [phone] Care Team Providers Care Newsstand Vendor Name Role Phone Tacho Dorsey MD Primary Care Provider [phone]- [phone] Reason for Visit * Reason Onset Date Comments Hospital Follow-Up 06/17/2023 Encounter Details Date Type Department Care Team (Late st Contact Info) Description 06/17/2023 Telephone General Internal Medicine [facility] [address] [facility] [place] [address] Tacho Dorsey MD [address] [place] [address] Hospital Follow-Up Allergies No known active allergiesdocumented as of this encounter (statuses as of 09/16/2023) Medications Medication Sig Dispensed Refills Start Date End Date Status Simvastatin 20 MG Oral Tablet (Zocor)Indications:Dys lipidemia, goal LDL below 100 TAKE 1 TABLET BY MOUTH EVERYDAY AT BEDTIME 90 Tablet 3 09/23/2022 Active Lisinopril 20 MG Oral Tablet (Prinivil)Indications: Essential hypertension with goal blood pressure less than 140/90 TAKE 1 TABLET BY MOUTH EVERY DAY 90 Tablet 3 09/23/2022 Active amLODIPine Besylate 5 MG Oral Tablet (Norvasc)Indications:H TN, goal below 140/90 TAKE 1 TABLET BY MOUTH EVERY DAY 90 Tablet 3 09/23/2022 Active Apixaban 5 MG Oral Tablet (Eliquis)Indications:C onfirmed venous thromboembolism (VTE) Take 1 Tablet by mouth in the morning and 1 Tablet before bedtime. 180 Tablet 3 04/11/2023 Active Metoprolol Tartrate 25 MG Oral Tablet (Lopressor) Take 0.5 Tablets by mouth in the morning and 0.5 Tablets before bedtime. 90 Tablet 3 04/28/2023 Active documented as of this encounter (statuses as of 09/16/2023) Active Problems Problem Noted Date Diagnosed Date [...] as of this encounter (statuses as of 09/16/2023) Resolved Problems Problem Noted Date Diagnosed Date [...] infarction 8 08/30/2017 Venous 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/2017 skilled nursing current use of ant icoagulant therapy 09/04/2008 12/30/2008 Overview: ICD-10 update of inactive term Anticoagulation management encounter 09/04/2008 12/30/2008 ADVANCE DIRECTIVE INFORMATION 08/30/2008 08/30/2017 Overview: Yes, advised to provide copy to PCP Cerebrovascular event, ill-d efined, within last 8 weeks 08/30/2008 01/30/2009 Overview: Modified per CVA protocol #8 HTN, goal below 150/90 01/09 documented as of this encounter (statuses as of 09/16/2023) Immunizations Name Administration Dates Next Due COVID-19 [...] money to buy more. Never true 03/17/20 Within the past 12 months, t he [...] encounter Miscellaneous Notes * Telephone Encounter - Hayden Jo RN - 06/17/2023 11:19 AM EDT Patient discharged 06/16/23 to home from [facility] after treatment for toe osteomyelitis, s/p toe amp. Patient discharged on IV cefazolin x 6 weeks. [email or web address] assisting with abx. Patient has follow up with Dr Ceja on 06/21. Thank you documented in this encounter Plan of Treatment Upcoming Encounters Date Type Department Care Team (Late st Contact Info) Description 09/20/2023 2:40 PM EST Office Visit [facility] [address] [place] [address] Tacho Dorsey MD [address] [facility] [place] [id number] Health Maintenance Due Date Last Done Comments Zoster Vaccines (1 of 2) 1990 Depression Screening 01/26/2022 01/26/2021 DTaP,Tdap,and Td Vaccines (2 - Td or Tdap) 01/09/2023 01/09/2013 COVID-19 Vaccine (3 - 2023-24 season) 2023 01/16/2021, 12/26/2020 Influenza Vaccine (FLU shot) (#1) 2023 09/06/2022, 07/28/2021, 07/28/2020, Additional history exists Albumin/Creatinine Ratio 09/06/2023 09/06/2022 CKD PHOS USE SMARTSET 05828 09/06/202308/18, 07/28/2021, 07/31/2020, Additional history exists CKD HGB USE SMARTSET 57915 07/19/202407/19, 07/12/2023, 07/05/2023, Additional history exists Pneumococcal [...] filedocumented as of this encounter Care Teams Newsstand Vendor Relationship Specialty Start Date End Date Tacho Dorsey MD [address] [place] [address] PCP - General 09/16/08 documented as of this encounter
--- OUTSIDE RECORDS SUMMARY | 2023-12-04 18:19 | External Medical Summary ---
Author Name Unknown Address Unknown Organization [id number]:[facility] - [facility] [address] [facility] [address] [facility] [address] Laboratory Report Ordering Provider Test Date Status DAVID VIDES 07/12/2023 21:46:41 Final Observation Date Value Abnormality Reference (Units ) Status WBC, Total 07/12/2023 21:46:41 7.41 4.00-10.80 (K/uL) Final RBC 07/12/2023 21:46:41 4.01 4.50-5.25 (M/uL) Final Hemoglobin 07/12/2023 21:46:41 12.6 Below low normal 14.0-16.8 (g/dL) Final HCT 07/12/2023 21:46:41 38.7 Below low normal 40.0-48.4 (%) Final MCV 07/12/2023 21:46:41 96.5 82.0-99.5 (fL) Final MCH 07/12/2023 21:46:41 31.4 27.0-34.0 (pg) Final MCHC 07/12/2023 21:46:41 32.6 32.0-36.0 (g/dL) Final RDW 07/12/2023 21:46:41 14.6 11.5-15.5 (%) Final Platelets 07/12/2023 21:46:41 216 140-400 (K/uL) Final MPV 07/12/2023 21:46:41 10.3 6.6-11.1 (fL) Final Nucleated erythrocytes/100 leukocytes [Ratio] in Blood by Automated count 07/12/2023 21:46:41 0 <=0 (/100 WBCs) Final Performing Location [facility] - [facility] [address] [facility] [place] [address]
--- OUTSIDE RECORDS SUMMARY | 2023-12-04 18:19 | External Medical Summary | Summary of Care ---
Author Name Unknown Organization [facility] Address [address] [facility] [place] [address] Phone [phone] Care Team Providers Care Treasury Consultant Name Role Phone Tacho Dorsey MD Primary Care Provider +1- [phone] Reason for Visit * Reason Comments Outpatient Testing Encounter Details Date Type Department Care Team (Late st Contact Info) Description 09/20/2023 3:30 PM EST Laboratory Laboratory, [place] [address] [place] [address] [place] [address] [place] [address] Elevated prostate specific antigen (PSA) Allergies No known active allergiesdocumented as of this encounter (statuses as of 09/20/2023) Medications Medication Sig Dispensed Refills Start Date [...] as of this encounter (statuses as of 09/20/2023) Active Problems Problem Noted Date Diagnosed Date [...] as of this encounter (statuses as of 09/20/2023) Resolved Problems Problem Noted Date Diagnosed Date [...] infarction 8 08/30/2017 Venous 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 09/04/2008 12/30/2008 Overview: ICD-10 update of inactive term Anticoagulation management encounter 09/04/2008 12/30/2008 ADVANCE DIRECTIVE INFORMATION 08/30/2008 08/30/2017 Overview: Yes, advised to provide copy to PCP Cerebrovascular event, ill-d efined, within last 8 weeks 08/30/2008 01/30/2009 Overview: Modified per CVA protocol #8 HTN, goal below 150/90 01/09 documented as of this encounter (statuses as of 09/20/2023) Immunizations Name Administration Dates Next Due COVID-19 mRNA, LNP-s, No Pre serve, 2-Dose Series ([employer]) 01/16/2021,12/26/2020 Pneumococcal Conjugate Vacc, 13 Valent (Prevnar) [...] Description 03/27/2024 2:40 PM EDT Office Visit [facility] [address] [place] [id number] Tacho Dorsey MD [address] [place] [address] Pending Results Name Type Priority Associated Diagnoses Date /Time PSA Lab Routine Elevated prostate specific antigen (PSA) 09/20/2023 3:31 PM EST Health Maintenance Due Date Last Done Comments Zoster Vaccines (1 of 2) 1988 Depression Screening 01/26/2022 01/26/2021 DTaP,Tdap,and Td Vaccines (2 - Td or Tdap) 01/09/2023 01/09/2013 COVID-19 Vaccine (3 - season) 2023 01/16/2021, 12/26/2020 Albumin/Creatinine Ratio 09/06/2023 09/06/2022 CKD PHOS USE SMARTSET 94456 09/06/2023 1110/2021, 07/28/2021, 07/31/2020, Additional history exists CKD HGB USE SMARTSET 73446 07/19/202407/19, 07/12/2023, 07/05/2023, Additional history exists Pneumococcal [...] as of this encounter Visit Diagnoses Diagnosis Elevated prostate specific antigen (PSA) documented in this encounter Care Teams Treasury Consultant Relationship Specialty Start Date End Date Tacho Dorsey MD [address] [place] [address] PCP - General 09/16/08 documented as of this encounter
--- OUTSIDE RECORDS SUMMARY | 2023-12-04 18:19 | External Medical Summary ---
Author Name Unknown Address Unknown Organization [id number]:LABORATORY [facility] - [address] [place] [address] Laboratory Report Ordering Provider Test Date Status DAVID VIDES 07/12/2023 13:00:00 Final Observation Date Value Abnormality Reference (Units ) Status CRP, low-sensitivity 07/12/2023 13:00:00 <3 <=5 (mg/L) Final Performing Location LABORATORY C - [address] [place] [address]
--- OUTSIDE RECORDS SUMMARY | 2023-12-04 18:19 | External Medical Summary | Summary of Care ---
Author Name Unknown Organization [facility] Address [address] [place] [facility] [place] [place] [address] Phone [phone] Care Team Providers Care Conservation Engineer Name Role Phone Tacho Dorsey MD Primary Care Provider +1- [phone] Reason for Referral * Evaluate & Treat - Unlimited Visits (Within 30 days (routine)) - Authorized Specialty Diagnoses / Procedures Referred By Antonio weathers Referred To Contact Urology Diagnoses Urinary incontinence, unspecified type Elevated prostate specific antigen (PSA) Tacho Dorsey MD [address] [place] [address] Referral ID Status Reason Start Date Expiration Date Visits Requested Visits Authorized [id number] Authorized Specialty Services Required 3 999 999 Question Answer Referral Priority Within 30 days (routine) Where should this appointment be scheduled? [facility] What is the patient being referred for? Urinary Concerns Reason for Visit * Reason Onset Date Comments Test Results 09/28/2023 PSA Result Encounter Details Date Type Department Care Team (Late st Contact Info) Description 09/28/2023 Telephone [facility] [address] [place] [address] Tacho Dorsey MD [address] [place] [address] Test Results (PSA Result) Allergies No known active allergiesdocumented as of this encounter (statuses as of 09/30/2023) Medications Medication Sig Dispensed Refills Start Date [...] as of this encounter (statuses as of 09/30/2023) Active Problems Problem Noted Date Diagnosed Date [...] as of this encounter (statuses as of 09/30/2023) Resolved Problems Problem Noted Date Diagnosed Date [...] infarction 8 08/30/2017 Venous 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/2017 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 09/04/2008 12/30/2008 Overview: ICD-10 update of inactive term Anticoagulation management encounter 09/04/2008 12/30/2008 ADVANCE DIRECTIVE INFORMATION 08/30/2008 08/30/2017 Overview: Yes, advised to provide copy to PCP Cerebrovascular event, ill-d efined, within last 8 weeks 08/30/2008 01/30/2009 Overview: Modified per CVA protocol #8 HTN, goal below 150/90 01/09 documented as of this encounter (statuses as of 09/30/2023) Immunizations Name Administration Dates Next Due COVID-19 mRNA, LNP-s, No Pre serve, 2-Dose Series ([employer]) 01/16/2021,12/26/2020 Pneumococcal Conjugate Vacc, 13 Valent (Prevnar) [...] encounter Miscellaneous Notes * Telephone Encounter - Janie Bhagat OSA - 09/30/2023 9:31 AM EST Patient has been scheduled with Urology already. 09/30/2023 * Telephone Encounter - Ashley Harkins LPN [...] 11/23/2023 1:00 PM EST Office Visit Urology, [facility] [address] [place] [address] Mayuri Vasquez PA-C [address] [place] [address] 03/27/2024 2:40 PM EDT Office Visit [facility] [address] [place] [address] Tacho Dorsey MD [address] [place] [address] Scheduled Orders Name Type Priority [...] Ratio 09/06/2023 09/06/2022 CKD PHOS USE SMARTSET 04874 09/06/2023 1110/2021, 07/28/2021, 07/31/2020, Additional history exists CKD HGB USE SMARTSET 43611 07/19/202407/19, 07/12/2023, 07/05/2023, Additional history exists Pneumococcal [...] (PSA) documented in this encounter Care Teams Conservation Engineer Relationship Specialty Start Date End Date Tacho Dorsey MD [address] [place] [address] PCP - General 09/16/08 documented as of this encounter
--- OUTSIDE RECORDS SUMMARY | 2023-12-04 18:19 | External Medical Summary | Summary of Care ---
Author Name Unknown Organization [facility] Address [address] [place] [address] Phone [phone] Care Team Providers Care Marble Cutter Operator Name Role Phone Tacho Dorsey MD Primary Care Provider +1- [phone] Encounter Details Date Type Department Care Team Description 07/20/2023 Twist [facility] Coordination [address], [place] [id number] Carrol Weems, ISABELLE [address] [place], [place] [id number] History of amputation of left great toe (HCC)* Allergies No known active allergiesdocumented as of [...] and infarction 08/30/2017 Venous 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/2017 prison current use of anticoagulant therapy 1 11/04/2007 [...] on file documented as of this encounter Progress Notes * Carrol Weems RN - 07/20/2023 3:52 PM EDT Please discharge the patient from [facility] ([facility]). Device(s)/IVR to be discontinued: IvR due to monitoring completed. Thank you. Carrol Weems RN documented in this encounter Plan of Treatment Upcoming Encounters Date Type Specialty Care Team Description 09/20/2023 Office Visit Family Medicine Tacho Dorsey MD [address] [place] [address] Health Maintenance Due Date Last Done Comments Zoster Vaccines (1 of 2) 1988 Depression Screening 01/26/2022 01/26/2021 DTaP,Tdap,and Td Vaccines (2 - Td or Tdap) 01/09/2023 01/09/2013 COVID-19 Vaccine (3 - 2022- season) 2023 01/16/2021, 12/26/2020 Influenza Vaccine (FLU shot) (#1) 2023 09/06/2022, 07/28/2021, 07/28/2020, Additional history exists Albumin/Creatinine Ratio 09/06/2023 09/06/2022 CKD PHOS USE SMARTSET 08365 09/06/2023 11/10/2021, 07/28/2021, 07/31/2020, Additional history exists CKD HGB USE SMARTSET 03376 07/19/202407/19, 07/12/2023, 07/05/2023, Additional history exists Pneumococcal [...] as of this encounter Visit Diagnoses Diagnosis History of amputation of left great toe (HCC)- Primary documented in this encounter Care Teams Marble Cutter Operator Relationship Specialty Start Date End Date Tacho Dorsey MD [address] [place] [address] PCP - General 09/16/08 documented as of this encounter
--- OUTSIDE RECORDS SUMMARY | 2023-12-04 18:20 | External Medical Summary | Summary of Care ---
Author Name Unknown Organization [facility] Address [address] [facility] [place] [address] Phone [phone] Care Team Providers Care Machine Rebuilder Name Role Phone Tacho Dorsey MD Primary Care Provider +1- [phone] Encounter Details Date Type Department Care Team Description 06/30/2023 Orders Only [facility] [address] [place] [address] Tacho Dorsey MD [address] [place] [address] Allergies No known active allergiesdocumented as of this encounter (statuses as of 06/30/2023) Medications Medication Sig Dispensed Refills Start Date [...] as of this encounter (statuses as of 06/30/2023) Active Problems Problem Noted Date History of [...] as of this encounter (statuses as of 06/30/2023) Resolved Problems Problem Noted Date Resolved Date [...] and infarction 08/30/2017 Venous 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/2017 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 1 11/04/2007 12/30/2008 Overview: ICD-10 update of inactive term Anticoagulation management encounter 09/04/2008 12/30/2008 ADVANCE DIRECTIVE INFORMATION 08/30/2008 Overview: Yes, advised to provide copy to PCP Cerebrovascular event, ill-defined, within last 8 weeks 08/30/2008 01/30/2009 Overview: Modified per CVA protocol #8 HTN, goal below 150/90 8 documented as of this encounter (statuses as of 06/30/2023) Immunizations Name Administration Dates Next Due COVID-19 [...] Encounters Date Type Specialty Care Team Description 07/05/2023 Office Visit Urology Katie Dudley PA-C [address] [place] [address] 09/20/2023 Office Visit Family Medicine Tacho Dorsey MD [address] [place], [place] [phone] Health Maintenance Due Date Last Done Comments Zoster Vaccines (1 of 2) 1990 COVID-19 Vaccine (3 - Pfizer series) 03/13/2021 01/16/2021, 12/26/2020 Depression Screening 01/26/2022 01/26/2021 DTaP,Tdap,and Td Vaccines (2 - Td or Tdap) 01/09/2023 01/09/2013 Influenza Vaccine (FLU shot) (#1) 2023 09/06/2022, 07/28/2021, 07/28/2020, Additional history exists Albumin/Creatinine Ratio 09/06/2023 09/06/2022 CKD PHOS USE SMARTSET 90096 09/06/2023 1110/2021, 07/28/2021, 07/31/2020, Additional history exists CKD HGB USE SMARTSET 58149 06/21/202406/29, 06/21/2023, 03/11/2023, Additional history exists Pneumococcal Vaccine: 65+ Years [...] Priority Date/Time Associated Diagnosis Comments CHEMISTRY-OUTSIDE Routine 06/29/2023 documented in this encounter Results * (ABNORMAL) CHEMISTRY-OUTSIDE (06/29/2023) Not all results display below - see scan for full detail OUTSIDE LAB (SEE SCANNED REPORT) Comment:SEE SCAN - BMP, CRP, CBC. SED RATE CREATININE-OUTSID E LAB 0.91 0.6 - 1.4 MG/DL OUTSIDE LAB (SEE SCANNED REPORT) EGFR-OUTSIDE LAB 76.6 ML/MIN OUT SIDE LAB (SEE SCANNED REPORT) POTASSIUM-OUTSIDE LAB 3.7 3.5 - 5.1 MMOL/L OUTSIDE LAB (SEE SCANNED REPORT) GLUCOSE-OUTSIDE LAB 117(A) 70 - 99 MG/DL OUTSIDE LAB (SEE [...] LAB OUTSIDE LAB (SEE SCANNED REPORT) HEMOGLOBIN, H1M-OGXBIEE LAB OUTSIDE LAB (SEE SCANNED REPORT) PHOSPHORUS-OUTSID E LAB OUTSIDE LAB (SEE SCANNED REPORT) PTH-OUTSIDE LAB OUTS [facility] (SEE SCANNED REPORT) MICROALBUMIN RATIO-OUTSIDE LAB OUTSIDE [facility] (SEE SCANNED REPORT) PROTEIN, UA-OUTSIDE LAB OUTSIDE LAB (SEE SCANNED REPORT) HEMOGLOBIN-OUTSID E LAB 12.0(A) 14.0 - 18.0 G/DL OUTSIDE LAB (SEE SCANNED REPORT) 06/29/2023 Tacho Dorsey MD LABORATORY OUTSIDE LAB (SEE SCANNED REPORT) documented in this encounter Care Teams Machine Rebuilder Relationship Specialty Start Date End Date Tacho Dorsey MD [address] [place], [place] [id number] PCP - General 09/16/08 documented as of this encounter
--- OUTSIDE RECORDS SUMMARY | 2023-12-04 18:20 | External Medical Summary | Summary of Care ---
Author Name Unknown Organization [facility] Address [address] [facility] [place] [address] Phone [phone] Care Team Providers Care Wafer Line Worker Name Role Phone Tacho Dorsey MD Primary Care Provider +1- [phone] Reason for Visit * Reason Onset Date Comments Films 06/07/2023 Encounter Details Date Type Department Care Team Description 06/07/2023 Telephone [facility] [address] [place] [address] FebruaryBinh MD [address] [place] [address] Films Allergies No known active allergiesdocumented as of this encounter (statuses as of 06/16/2023) Medications Medication Sig Dispensed Refills Start Date [...] EVERY DAY 90 Tablet 3 09/23/2022 Active Clopidogrel Bisulfate 75 MG Oral Tablet (pLAVix)Indications:Ce rebrovascular disease, arteriosclerotic, post-stroke TAKE 1 TABLET BY MOUTH EVERY DAY 90 Tablet 3 10/14/2022 Active Apixaban 5 MG Oral Tablet (Eliquis)Indications:C onfirmed venous thromboembolism (VTE) Take 1 Tablet by mouth in the morning and 1 Tablet before bedtime. 180 Tablet 3 04/11/2023 Active Metoprolol Tartrate 25 MG Oral Tablet (Lopressor) Take 0.5 Tablets by mouth in the morning and 0.5 Tablets before bedtime. 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 1 11/04/2007 12/30/2008 Overview: ICD-10 update of inactive term Anticoagulation management encounter 09/04/2008 12/30/2008 ADVANCE DIRECTIVE INFORMATION 08/30/2008 Overview: Yes, advised to provide copy to PCP Cerebrovascular event, ill-defined, within last 8 weeks 08/30/2008 01/30/2009 Overview: Modified per CVA protocol #8 HTN, goal below 150/90 8 documented as of this encounter (statuses as of 06/16/2023) Immunizations Name Administration Dates Next Due COVID-19 [...] encounter Miscellaneous Notes * Telephone Encounter - MEE Montiel - 06/07/2023 4:20 PM EDT [facility] Emergency Department requesting 05-28-23 images be pushed through PACS. [place] Authorization to Release on file. Images pushed to [facility] PACS external connection. * Telephone Encounter - MEE Zhang - 06/07/2023 4:19 PM EDT Please push the following MRIs to [facility] MARTÍN as patient is being admitted. 05.28.2023 MRI FOOT LEFT W WO CONTRAST 05.28.2023 MRI FOOT LEFT WO CONTRAST Thank you! documented in this encounter Plan of Treatment Upcoming Encounters Date Type Specialty Care Team Description 06/21/2023 Office Visit Family Medicine Binh Ceja MD [address] [place] [address] 07/05/2023 Office Visit Urology Katie Dudley PA-C [address] [place] [address] 09/20/2023 Office Visit Family Medicine Tacho Dorsey MD [address] [place] [address] Health Maintenance Due Date Last Done Comments Zoster Vaccines (1 of 2) 1990 COVID-19 Vaccine (3 - Pfizer series) 03/13/2021 01/16/2021, 12/26/2020 Depression Screening, Annual for Pts 12 and Over 01/26/2022 01/26/2021 DTaP,Tdap,and Td Vaccines (2 - Td or Tdap) 01/09/2023 01/09/2013 Influenza Vaccine (FLU shot) (#1) 2023 09/06/2022, 07/28/2021, 07/28/2020, Additional history exists Albumin/Creatinine Ratio 09/06/2023 09/06/2022 CKD PHOS USE SMARTSET 13795 09/06/202308/18, 07/28/2021, 07/31/2020, Additional history exists CKD HGB USE SMARTSET 62230 03/11/202403/11, 03/11/2023, 09/06/2022, Additional history exists Pneumococcal Vaccine: 65+ Years [...] filedocumented as of this encounter Care Teams Wafer Line Worker Relationship Specialty Start Date End Date Tacho Dorsey MD [address] [place] [address] PCP - General 09/16/08 documented as of this encounter
--- OUTSIDE RECORDS SUMMARY | 2023-12-04 18:20 | External Medical Summary | Summary of Care ---
Author Name Unknown Organization [facility] Address [address] [place] [address] Phone [phone] Care Team Providers Care Blood Donor Recruiter Name Role Phone Tacho Dorsey MD Primary Care Provider +1- [phone] Encounter Details Date Type Department Care Team Description 06/24/2023 Cafe Site AttendantProduction InspectorDonald Ville [address] [place] [address] Carrol Weems, RN [address] [place] [address] History of amputation of left great toe (HCC)* Allergies No known active allergiesdocumented as of this encounter (statuses as of 06/24/2023) Medications Medication Sig Dispensed Refills Start Date [...] as of this encounter (statuses as of 06/24/2023) Active Problems Problem Noted Date History of [...] as of this encounter (statuses as of 06/24/2023) Resolved Problems Problem Noted Date Resolved Date [...] and infarction 08/30/2017 Venous 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/2017 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.] Progress Notes * Carrol Weems RN - 06/24/2023 2:02 PM EDT S: Spoke with patient's daughter Sharri, patient in the back round O: Patient denies SOB, cough or angina Still with some swelling to his right foot/ankle, keeping legs elevated Has a good appetite, denies bowel/bladder complaints Has some discomfort to the toe amputation site at times, pain being controlled Left great toe site healing, no increased redness, drainage or swelling Patient ambulating with a walker, wearing boot to the right foot Confirmed he has a follow up appointment with podiatry on 07/09/34 A: Phone Follow Up P: Instructed to report any signs of infection: Redness, swelling, uncontrolled pain, green/yellow drainage, foul odor or fever. Advised to call office for any change in health status or questions concerning care Encouraged patient to call lining caser with any questions/concerns at [phone]. Office Hours: Tue- 8-8 pm, Tuesday 8-5 pm, [facility] weekend clinic hours: Saturdays 8-5, Sundays 8-5 Carrol Weems RN Family [address] [address] documented in this encounter Plan of Treatment Upcoming Encounters Date Type Specialty Care Team Description 07/05/2023 Office Visit Urology Katie Dudley PA-C [address] [place] [facility] [address] 09/20/2023 Office Visit Family Medicine Tacho Dorsey MD [address] [place] [address] Health Maintenance Due Date Last Done Comments Zoster Vaccines (1 of 2) 1990 COVID-19 Vaccine (3 - Pfizer series) 03/13/2021 01/16/2021, 12/26/2020 Depression Screening 01/26/2022 01/26/2021 DTaP,Tdap,and Td Vaccines (2 - Td or Tdap) 01/09/2023 01/09/2013 Influenza Vaccine (FLU shot) (#1) 2023 09/06/2022, 07/28/2021, 07/28/2020, Additional history exists Albumin/Creatinine Ratio 09/06/2023 09/06/2022 CKD PHOS USE SMARTSET 60547 09/06/202308/18, 07/28/2021, 07/31/2020, Additional history exists CKD HGB USE SMARTSET 32036 06/21/202406/21, 03/11/2023, 03/11/2023, Additional history exists Pneumococcal Vaccine: 65+ [...] Primary documented in this encounter Care Teams Blood Donor Recruiter Relationship Specialty Start Date End Date Tacho Dorsey MD [address] [place] [facility] [address] PCP - General 09/16/08 documented as of this encounter
--- OUTSIDE RECORDS SUMMARY | 2023-12-04 18:20 | External Medical Summary | Summary of Care ---
Author Name Unknown Organization [facility] Address [address] [facility] [place] [address] Phone [phone] Care Team Providers Care Sewer Repairer Name Role Phone Tacho Dorsey MD Primary Care Provider +1- [phone] Reason for Visit * Reason Comments Hospital Follow-Up Pt here with his anna rejiter for hospital follow up, denies any new concerns. Pt tolerating new medications, states he had dressing change this morning Encounter Details Date Type Department Care Team Description 06/21/2023 Office Visit [facility] [address] [place] [address] February, Binh Bowman MD [address] [place] [address] HTN, goal below 140/90*; History of amputation of left great toe (HCC); Atrial fibrillation, unspecified type (HCC); History of cerebrovascular accident; Hospital discharge follow-up Allergies No known active allergiesdocumented as of this encounter (statuses as of 06/21/2023) Medications Medication Sig Dispensed Refills Start Date [...] as of this encounter (statuses as of 06/21/2023) Active Problems Problem Noted Date History of [...] as of this encounter (statuses as of 06/21/2023) Resolved Problems Problem Noted Date Resolved Date [...] and infarction 08/30/2017 Venous 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/2017 detention current use of anticoagulant therapy 1 11/04/2007 12/30/2008 Overview: ICD-10 update of inactive term Anticoagulation management encounter 09/04/2008 12/30/2008 ADVANCE DIRECTIVE INFORMATION 08/30/2008 Overview: Yes, advised to provide copy to PCP Cerebrovascular event, ill-defined, within last 8 weeks 08/30/2008 01/30/2009 Overview: Modified per CVA protocol #8 HTN, goal below 150/90 8 documented as of this encounter (statuses as of 06/21/2023) Immunizations Name Administration Dates Next Due COVID-19 [...] Sign Reading Time Taken Comments Blood Pressure 112/58 06/21/2023 1:31 PM EDT Pulse 68 06/21/2023 1:31 PM EDT Temperature 36.6 C (97.8 F) 06/21/2023 1:31 PM ED T Respiratory Rate 18 06/21/2023 1:31 PM EDT Oxygen Saturation - - Inhaled Oxygen Concentration - - Weight 73.5 kg (162 lb) 06/21/2023 1:31 PM EDT Height 182.9 cm (6') 06/21/2023 1:31 PM EDT Body Mass Index 21.97 06/21/2023 1:31 PM EDT documented in this encounter Progress Notes * Binh Ceja MD - 06/21/2023 2:30 PM EDT Images from the original note were not included. Assessment and Plan Patient doing well post discharge. Continue 6 weeks of cefazolin per ID recommendation. Home healthwe will continue to assist with IV site management and dressing changes. Follow up with Podiatry asscheduled on 06/28/2023. Continue work on home PT exercises with daughter. No changes to medications today. Rest of his chronic conditions are under good control. He can follow up with his PCP in 3 months as scheduled for ongoing care. 1. History of amputation of left great toe (HCC) 2. HTN, goal below 140/90 3. Atrial fibrillation, unspecified type (HCC) 4. History of cerebrovascular accident 5. Hospital discharge follow-up Wrap-Up Follow up as scheduled with PCP. History of Present Illness The patient is a 83-year-old male with past medical history of hypertension, hyperlipidemia, AFib anticoagulated on Eliquis, CKD 3, history of CVA with dysarthria, who presents for hospital follow up. The patient was admitted to [facility] from 06/07/2023 through 06/16/2023. Patient was directed to the ED by this provider with concern for osteomyelitis of the left great toe. Prior to presenting to the hospital he has been having pain, swelling, redness of the toe for a month and had failed outpatient Bactrim and doxycycline. On arrival to the ED he was started on empiric antibiotics and Podiatry was consulted for evaluation. Repeat MRI of the left foot showed osteomyelitis of the distal phalanx of the left great toe. He underwent left hallux amputation by Dr. Wood on 06/12/2023. At discharge home health was set up for 6 weeks of infusion of cefazolin. End date should be 07/24/2023. He was also noted to be on Eliquis and Plavix. Plavix was discontinued due to bleeding risk. Today patient reports he is doing well. His pain is well-controlled. He denies fevers, chills, other signs systemic infection. Home health has been to the house and has changed his PICC line and his wound dressing. He is eating and drinking normally. His daughter is providing assistance at home andis working on strength training and balance training with him. Has wound appears well healing. Stitches are in place. Has a small amount of serosanguineous drainage but no purulent drainage or significant bleeding. The patient has follow up with Podiatry on 06/28/2023. Physical Exam Vitals: 06/21/23 1331 Temp: 36.6 C (97.8 F) Pulse: 68 Resp: 18 BP: 112/58 BMI: 21.97 Physical Exam Physical Exam Vitals reviewed. Constitutional: General: He is not in acute distress. Comments: Using wheelchair for mobility. Cardiovascular: Rate and Rhythm: Normal rate and regular rhythm. Heart sounds: No murmur heard. Pulmonary: Effort: Pulmonary effort is normal. No respiratory distress. Breath sounds: Normal breath sounds. No wheezing. Musculoskeletal: Comments: Left great toe with well healing surgical site. Sutures in place. Minor serosanguinous drainage. PICC in L arm. Neurological: Mental Status: He is alert. 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 documented in this encounter Nursing Notes * Shelby Zamarripa LPN - 06/21/2023 1:30 PM EDT The patient has been properly identified by confirmation of name and date of . Chief Complaint Patient presents with Hospital Follow-Up Pt here with his daughter for hospital follow up, denies any new concerns. Pt tolerating new medications, states he had dressing change this morning documented in this encounter Plan of Treatment Upcoming Encounters Date Type Specialty Care Team Description 07/05/2023 Office Visit Urology Katie Dudley PA-C [address] [place] [address] 09/20/2023 Office Visit Family Medicine Tacho Dorsey MD [address], [place] [phone] Health Maintenance Due Date Last Done Comments Zoster Vaccines (1 of 2) 1988 COVID-19 Vaccine (3 - Pfizer series) 03/13/2021 01/16/2021, 12/26/2020 Depression Screening, Annual for Pts 12 and Over 01/26/2022 01/26/2021 DTaP,Tdap,and Td Vaccines (2 - Td or Tdap) 01/09/2023 01/09/2013 Influenza Vaccine (FLU shot) (#1) 2023 09/06/2022, 07/28/2021, 07/28/2020, Additional history exists Albumin/Creatinine Ratio 09/06/2023 09/06/2022 CKD PHOS USE SMARTSET 44283 09/06/202308/18, 07/28/2021, 07/31/2020, Additional history exists CKD HGB USE SMARTSET 23724 03/11/202403/11, 03/11/2023, 09/06/2022, Additional history exists Pneumococcal [...] as of this encounter Visit Diagnoses Diagnosis HTN, goal below 140/90- Primary Unspecified essential hypertension History of amputation of left great toe (HCC) Atrial fibrillation, unspecified type (HCC) History of cerebrovascular accident Transient ischemic attack (TIA), and cerebral infarction without residual deficits Hospital discharge follow-up Other follow-up examination documented in this encounter Care Teams Sewer Repairer Relationship Specialty Start Date End Date Tacho Dorsey MD [address] [place] [address] PCP - General 09/16/08 documented as of this encounter
--- OUTSIDE RECORDS SUMMARY | 2023-12-04 18:20 | External Medical Summary | Summary of Care ---
Author Name Unknown Organization [facility] Address [address] [place] [address] Phone [phone] Care Team Providers Care Analyst Geochemical Prospecting Name Role Phone Tacho Dorsey MD Primary Care Provider [phone]- [phone] Reason for Referral * Evaluate & Treat - Unlimited Visits (Within 10 days (routine)) - Authorized Specialty Diagnoses / Procedures Referred By Antonio t Referred To Contact Infectious Diseases / Infectious Disease Diagnoses Toe osteomyelitis (HCC) Romana Abbott PA-C [address] [place] [address] Referral ID Status Reason Start Date Expiration Date Visits Requested Visits Authorized [id number] Authorized Specialty Services Required 06/10/2023 999 999 Question Answer Referral Priority Within 10 days (routine) What condition is the patient being seen for? All Other Conditions Comments Notes scanned into Epic 06/10/23 CRB Encounter Details Date Type Department Care Team Description 06/10/2023 Orders Only [facility] [place] [facility] [address] [place] [address] Ext *DO NOT REMOVE THIS DEPARTMENT* [place] [id number] Request, External Referral Toe osteomyelitis (HCC)* Allergies No known active allergiesdocumented as of this encounter (statuses as of 06/10/2023) Medications Medication Sig Dispensed Refills Start Date [...] as of this encounter (statuses as of 06/10/2023) Active Problems Problem Noted Date Atrial fibrillation [...] as of this encounter (statuses as of 06/10/2023) Resolved Problems Problem Noted Date Resolved Date [...] and infarction 08/30/2017 Venous 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/2017 [facility] current use of anticoagulant therapy 1 11/04/2007 12/30/2008 Overview: ICD-10 update of inactive term Anticoagulation management encounter 09/04/2008 12/30/2008 ADVANCE DIRECTIVE INFORMATION 08/30/2008 Overview: Yes, advised to provide copy to PCP Cerebrovascular event, ill-defined, within last 8 weeks 08/30/2008 01/30/2009 Overview: Modified per CVA protocol #8 HTN, goal below 150/90 8 documented as of this encounter (statuses as of 06/10/2023) Immunizations Name Administration Dates Next Due COVID-19 [...] Visit Urology Katie Dudley PA-C [address] [place] [address] 09/20/2023 Office Visit Family Medicine Tacho Dorsey MD [address] [place], [place] [phone] Scheduled Referrals Name Type Priority Associated Diagnoses Orde r Schedule INFECTIOUS DISEASE REFERRAL OP Referral Within 10 days (routine) Toe osteomyelitis (HCC) Ordered: 06/10/2023 Health Maintenance Due Date Last Done Comments Zoster Vaccines (1 of 2) 1990 COVID-19 Vaccine (3 - Pfizer series) 03/13/2021 01/16/2021, 12/26/2020 Depression Screening, Annual for Pts 12 and Over 01/26/2022 01/26/2021 DTaP,Tdap,and Td Vaccines (2 - Td or Tdap) 01/09/2023 01/09/2013 Influenza Vaccine (FLU shot) (#1) 2023 09/06/2022, 07/28/2021, 07/28/2020, Additional history exists Albumin/Creatinine Ratio 09/06/2023 09/06/2022 CKD PHOS USE SMARTSET 64556 09/06/202308/18, 07/28/2021, 07/31/2020, Additional history exists CKD HGB USE SMARTSET 70179 03/11/202403/11, 03/11/2023, 09/06/2022, Additional history exists Pneumococcal [...] as of this encounter Visit Diagnoses Diagnosis Toe osteomyelitis (HCC)- Primary Unspecified osteomyelitis, ankle and foot documented in this encounter Care Teams Analyst Geochemical Prospecting Relationship Specialty Start Date End Date Tacho Dorsey MD [address], [place] [phone] PCP - General 09/16/08 documented as of this encounter
--- OUTSIDE RECORDS SUMMARY | 2023-12-04 18:20 | External Medical Summary | Summary of Care ---
Author Name Unknown Organization [facility] Address [address] [place] [address] Phone [phone] Care Team Providers Care Java Software Developer Name Role Phone Tacho Dorsey MD Primary Care Provider +1- [phone] Reason for Referral * Evaluate & Treat - Unlimited Visits (Within 3 days (urgent)) - Authorized Specialty Diagnoses / Procedures Referred By Antonio weathers Referred To Contact School Cafeteria Cook Diagnoses Cellulitis of great toe of left foot Tacho Dorsey MD [address] [place] [address] Referral ID Status Reason Start Date Expiration Date Visits Requested Visits Authorized [id number] Authorized Specialty Services Required 06/17/2023 1 1 Question Answer Referral Priority Within 3 days (urgent) Program Type Case Management Complex Case Management [facility] Health Device(s) Requested Other (See Comment) Alarm Settings Standard per protocol Comments Primary School Cafeteria Cook: Carrol Weems RN Is the patient already enrolled with another [facility] device/service? (If no, will need to "push the button") No Does the patient have a physical address? (If no, provide physical address if requesting device) Yes Requested Devices/IVR: IVR Post-Discharge Start date: 06/25/23 How many weeks: 4 If want time other than 9am, note time here: Please call [phone] at 10 am thanks Carrol Weems RN Reason for Visit * Reason Onset Date Comments Follow Up 06/17/2023 Encounter Details Date Type Department Care Team Description 06/17/2023 School Cafeteria Cook Telephone [facility] [address] [place] [address] Carrol Weems, RN [address] [place] [address] Follow Up Allergies No known active allergiesdocumented as of this encounter (statuses as of 06/17/2023) Medications Medication Sig Dispensed Refills Start Date [...] as of this encounter (statuses as of 06/17/2023) Active Problems Problem Noted Date Atrial fibrillation 04/28/2023 Hemiplegia and hemiparesis f ollowing cerebral infarction affecting right dominant side 11/30/2022 History of cerebrovascular accident 12/2020 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 08/03/ 2021 Anticoagulated 05/19/2021 Chronic kidney disease, stage 3a [...] as of this encounter (statuses as of 06/17/2023) Resolved Problems Problem Noted Date Resolved Date [...] and infarction 08/30/2017 Venous 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/2017 shelter current use of anticoagulant therapy 1 11/04/2007 12/30/2008 Overview: ICD-10 update of inactive term Anticoagulation management encounter 09/04/2008 12/30/2008 ADVANCE DIRECTIVE INFORMATION 08/30/2008 Overview: Yes, advised to provide copy to PCP Cerebrovascular event, ill-defined, within last 8 weeks 08/30/2008 01/30/2009 Overview: Modified per CVA protocol #8 HTN, goal below 150/90 8 documented as of this encounter (statuses as of 06/17/2023) Immunizations Name Administration Dates Next Due COVID-19 [...] Family Medicine Binh Ceja MD [address] [place] [address] 07/05/2023 Office Visit Urology Katie Dudley PA-C [address] [place] [address] 09/20/2023 Office Visit Family Medicine Tacho Dorsey MD [address] [place] [address] Scheduled Referrals Name Type Priority Associated Diagnoses Orde r Schedule REMOTE PATIENT MONITORING REFERRAL Referral Within 3 days (urgent) Cellulitis of great toe of left foot Ordered: 06/17/2023 Health Maintenance Due Date Last Done Comments Zoster Vaccines (1 of 2) 1990 COVID-19 Vaccine (3 - Pfizer series) 03/13/2021 01/16/2021, 12/26/2020 Depression Screening, Annual for Pts 12 and Over 01/26/2022 01/26/2021 DTaP,Tdap,and Td Vaccines (2 - Td or Tdap) 01/09/2023 01/09/2013 Influenza Vaccine (FLU shot) (#1) 2023 09/06/2022, 07/28/2021, 07/28/2020, Additional history exists Albumin/Creatinine Ratio 09/06/2023 09/06/2022 CKD PHOS USE SMARTSET 18527 09/06/202308/18, 07/28/2021, 07/31/2020, Additional history exists CKD HGB USE SMARTSET 06523 03/11/202403/11, 03/11/2023, 09/06/2022, Additional history exists Pneumococcal [...] as of this encounter Visit Diagnoses Diagnosis Cellulitis of great toe of left foot- Primary Cellulitis and abscess of toe, unspecified documented in this encounter Care Teams Java Software Developer Relationship Specialty Start Date End Date Tacho Dorsey MD [address], [place] [phone] PCP - General 09/16/08 documented as of this encounter
--- OUTSIDE RECORDS SUMMARY | 2023-12-04 18:20 | External Medical Summary | Summary of Care ---
Author Name Unknown Organization [facility] Address [address] [place] [address] Phone [phone] Care Team Providers Care Photofinishing Laboratory Worker Name Role Phone Tacho Dorsey MD Primary Care Provider +1- [phone] Encounter Details Date Type Department Care Team Description 06/17/2023 [place] [address] [place] [address] Carrol Weems, RN [address] [place] [address] Cellulitis of great toe of left foot* Allergies No known active allergiesdocumented as of this encounter (statuses as of 06/17/2023) Medications Medication Sig Dispensed Refills Start Date End Date Status Simvastatin 20 MG Oral Tablet (Zocor)Indications:D yslipidemia, goal LDL below 100 TAKE 1 TABLET BY MOUTH EVERYDAY AT BEDTIME 90 Tablet 3 2 Active Lisinopril 20 MG Oral Tablet (Prinivil)Indication s:Essential hypertension with goal blood pressure less than 140/90 TAKE 1 TABLET BY MOUTH EVERY DAY 90 Tablet 3 2 Active amLODIPine Besylate 5 MG Oral Tablet (Norvasc)Indications :HTN, goal below 140/90 TAKE 1 TABLET BY MOUTH EVERY DAY 90 Tablet 3 2 Active Apixaban 5 MG Oral Tablet (Eliquis)Indications [...] before bedtime. For 6 weeks. 0 Active Clopidogrel Bisulfate 75 MG Oral Tablet (pLAVix)Indications: Cerebrovascular disease, arteriosclerotic, post-stroke TAKE 1 TABLET BY MOUTH EVERY DAY 90 Tablet 3 2 06/17/20 23 Discontinu ed(Patient preference /discontin uation) documented as of this encounter (statuses as [...] and infarction 08/30/2017 Venous 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/2017 medical terminologist current use of anticoagulant therapy 1 11/04/2007 [...] Progress Notes * Carrol Weems RN - 06/17/2023 12:42 PM EDT Parking Patroller Progress Note: Date: 06/17/23 Assigned Patient Tier: 2 Connected with patient's daughter Sharri. Verified patient name/. Advised patient that call is being recorded for quality and training purposes. Assessment: Pt. noted the following: Per Sharri, patient alert & oriented, doing well so far Denies SOB, cough or angina has some swelling to his feet, not new for him, keeps them elevated in a recliner Patient has a good appetite, denies bowel/bladder complaints No complaints of pain Incision to left great toe with sutures, has some swelling, home health doing dressing changes Patient has a PICC line to his left arm, getting IVAB q8hrs for 6 weeks, daughter helps with administration Patient sleeping okay at night Patient lives with Sharri in a ranch home, she is home with him 09/05 Patient using a walker to ambulate, also wearing a surgical boot Patient needs help with bathing, daughter helps with driving, manages his medicatons [facility] home health following patient, [facility] providing IV supplies Confirmed patient has a follow up appointment with Dr. Wood next week Patient has a follow up appointment with Dr. Ceja on 06/21/23 POA documentation in [facility] Will enroll patient in post d/c IVR calls Did you receive an alert for an annual wellness visit? No Is this call for a hospital, halfway or rehab facility discharge to home? Yes [facility] on 06/07/23 with left great toe osteomyelitis, s/p left great toe amputation, discharged home on 06/16/23 Medication Reconciliation: Medication Reconciliation completed: yes Review of Current goals: Discussed the following patient-centered CM goals with the patient during this discussion: -TREATMENT: Heal and maintain skin integrity -Status: On Track left toe incision healing, home health doing dressing changes. -ATRIAL FIBRILLATION: Patient will have successful management of a-fib -Status: On Track denies palpitations, SOB, daughter making sure patient is taking his medicatons as prescribed. -SAFETY: Prevent falls or injuries -Status: On Track patient using walker to ambulate, followed by home health, daughter provides 09/05supervision. COPD Patient: No CHF Patient: NO CM Plan: Reviewed 3 Red Flags with patient. Advised to call CM with any of the following: Red Flag 1: increased SOB, cough, Red Flag 2: fever, chills, or Red Flag 3: increased redness, drainage, swelling to incision Remote Patient Monitoring: [facility] IVR Plan for Future Contacts: Plan to follow up within 1 week to check progress on the following goals/needs as above. Planned contacts from the following parties will occur this week: PCP office visit and Specialty Visit as additional contacts per workflow. Advancement/Closure Plan: Keep patient at current Tier with reassessment per workflow. Patient provided CM contact information and encouraged to call with any changes in condition. SNP Member? No PCP Notified of enrollment in CM/HM program: Yes Is Provider in agreement with POC? Yes Carrol Weems RN Outpatient Case Management documented in this encounter Plan of Treatment Upcoming Encounters Date Type Specialty Care Team Description 06/21/2023 Office Visit Family Medicine Binh Ceja MD [address] [place] [id number] 07/05/2023 Office Visit Urology Katie Dudley PA-C [address] [place] [address] 09/20/2023 Office Visit Family Medicine Tacho Dorsey MD [address] [place] [address] Health Maintenance Due Date Last Done Comments Zoster Vaccines (1 of 2) 1990 COVID-19 Vaccine (3 - Pfizer series) 03/13/2021 01/16/2021, 12/26/2020 Depression Screening, Annual for Pts 12 and Over 01/26/2022 01/26/2021 DTaP,Tdap,and Td Vaccines (2 - Td or Tdap) 01/09/2023 01/09/2013 Influenza Vaccine (FLU shot) (#1) 2023 09/06/2022, 07/28/2021, 07/28/2020, Additional history exists Albumin/Creatinine Ratio 09/06/2023 09/06/2022 CKD PHOS USE SMARTSET 49599 09/06/202308/18, 07/28/2021, 07/31/2020, Additional history exists CKD HGB USE SMARTSET 73182 03/11/202403/11, 03/11/2023, 09/06/2022, Additional history exists Pneumococcal [...] unspecified documented in this encounter Care Teams Photofinishing Laboratory Worker Relationship Specialty Start Date End Date Tacho Dorsey MD [address] [place] [address] PCP - General 09/16/08 documented as of this encounter
--- OUTSIDE RECORDS SUMMARY | 2023-12-04 18:20 | External Medical Summary | Summary of Care ---
Author Name Unknown Organization [facility] Address [address] [facility] [place] [address] Phone [phone] Care Team Providers Care Bending Shed Worker Name Role Phone Tacho Dorsey MD Primary Care Provider [phone] Encounter Details Date Type Department Care Team Description 06/22/2023 Orders Only [facility] [address] [place] [address] Tacho Dorsey MD [address] [place] [address] Allergies No known active allergiesdocumented as of this encounter (statuses as of 06/22/2023) Medications Medication Sig Dispensed Refills Start Date [...] as of this encounter (statuses as of 06/22/2023) Active Problems Problem Noted Date History of [...] as of this encounter (statuses as of 06/22/2023) Resolved Problems Problem Noted Date Resolved Date [...] infarction 08/30/2017 Venous 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/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 current use of anticoagulant therapy 1 11/04/2007 12/30/2008 Overview: ICD-10 update of inactive term Anticoagulation management encounter 09/04/2008 12/30/2008 ADVANCE DIRECTIVE INFORMATION 08/30/2008 Overview: Yes, advised to provide copy to PCP Cerebrovascular event, ill-defined, within last 8 weeks 08/30/2008 01/30/2009 Overview: Modified per CVA protocol #8 HTN, goal below 150/90 8 documented as of this encounter (statuses as of 06/22/2023) Immunizations Name Administration Dates Next Due COVID-19 [...] Visit Urology Katie Dudley PA-C [address] [place] [address] 09/20/2023 Office Visit Family Medicine Tacho Dorsey MD [address], [place] [phone] Health Maintenance Due Date Last Done Comments Zoster Vaccines (1 of 2) 1988 COVID-19 Vaccine (3 - Pfizer series) 03/13/2021 01/16/2021, 12/26/2020 Depression Screening, Annual for Pts 12 and Over 01/26/2022 01/26/2021 DTaP,Tdap,and Td Vaccines (2 - Td or Tdap) 01/09/2023 01/09/2013 Influenza Vaccine (FLU shot) (#1) 2023 09/06/2022, 07/28/2021, 07/28/2020, Additional history exists Albumin/Creatinine Ratio 09/06/2023 09/06/2022 CKD PHOS USE SMARTSET 04226 09/06/2023 11/10/2021, 07/28/2021, 07/31/2020, Additional history exists CKD HGB USE SMARTSET 66412 03/11/202406/21, 03/11/2023, 03/11/2023, Additional history exists Pneumococcal Vaccine: [...] Priority Date/Time Associated Diagnosis Comments CHEMISTRY-OUTSIDE Routine 06/21/2023 documented in this encounter Results * (ABNORMAL) CHEMISTRY-OUTSIDE (06/21/2023) Not all results display below - see scan for full detail OUTSIDE LAB (SEE SCANNED REPORT) Comment:SCAN INCLUDES: BMP, CRP, CBC, SED RATE CREATININE-OUTSID E LAB 1.06 0.6 - 1.4 MG/DL OUTSIDE LAB (SEE SCANNED REPORT) EGFR-OUTSIDE LAB 63.7 ML/MIN OUT SIDE LAB (SEE SCANNED REPORT) POTASSIUM-OUTSIDE LAB 4.1 3.5 - 5.1 MMOL/L OUTSIDE LAB (SEE SCANNED REPORT) GLUCOSE-OUTSIDE LAB 75 70 - 99 MG/DL OUTSIDE LAB (SEE [...] LAB OUTSIDE LAB (SEE SCANNED REPORT) HEMOGLOBIN, [id number] LAB OUTSIDE LAB (SEE SCANNED REPORT) PHOSPHORUS-OUTSID E LAB OUTSIDE LAB (SEE SCANNED REPORT) PTH-OUTSIDE LAB OUTS [facility] (SEE SCANNED REPORT) MICROALBUMIN RATIO-OUTSIDE LAB OUTSIDE [facility] (SEE SCANNED REPORT) PROTEIN, UA-OUTSIDE LAB OUTSIDE LAB (SEE SCANNED REPORT) HEMOGLOBIN-OUTSID E LAB 12.4(A) 14.0 - 18.0 G/DL OUTSIDE LAB (SEE SCANNED REPORT) 06/21/2023 Tacho Dorsey MD LABORATORY OUTSIDE LAB (SEE SCANNED REPORT) documented in this encounter Care Teams Bending Shed Worker Relationship Specialty Start Date End Date Tacho Dorsey MD [address], [place] [phone] PCP - General 09/16/08 documented as of this encounter
--- NOTE | 2023-12-04 18:34 | ED Triage Note ---
Date of Service December 04, 2023 Provider in Triage Author: Melina Peace History of Present Illness This patient was briefly evaluated while in triage. An abbreviated physical exam was performed. This patient is a 83-year-old Male who presents to the ED for evaluation of weakness, diarrhea, and vomiting. Daughter states symptoms started this morning. She states he has been extremely weak and is unable to walk. Physical Exam VITALS: Vitals are noted on the nurse's note and reviewed by myself. GENERAL: This is an 83-year-old male, in no acute distress, ill appearing, weak. MOUTH: Mucous membranes dry. HEART: Regular rate and rhythm without murmurs gallops or rubs. NEURO: Patient was alert. Initial orders for labs and / or imaging were placed and patient was placed in the waiting area until a bed is available. Please see further documentation for the full ED course.
[2023-12-04] MEDS: SODIUM CHLORIDE 0.9% 500 ML IV ONE (18:55)
--- NOTE | 2023-12-04 18:58 | Emergency Department Note ---
Impression & Plan UTI (urinary tract infection), Weakness, Nausea vomiting and diarrhea ED Provider Note NAME: RAFAEL SANDY AGE: 83 SEX: M : 1940 ARRIVES VIA: Walk-In INFORMANT: Patient ED PROVIDER(S): Mikhail Blanca DO CHIEF COMPLAINT: weakness HPI: Patient is an 83-year-old gentleman with a past medical history of a CVA, osteomyelitis and PE as well as hypertension who presents to the ER on Eliquis for nausea, vomiting, and diarrhea. He notes his symptoms started yesterday with diarrhea. Vomiting has been persistent today. He has been unable to keep anything down. He feels very weak and is unable to really get up and move around. Daughter notes that his speech is unchanged from his baseline he normally does have a little bit of a facial droop which is unchanged as well. He denies any new weakness or numbness. No other complaints at this time. Daughter notes that he is normally completely independent. ADDITIONAL HISTORY OBTAINED: Per HPI Chronic Medical/Social Conditions Affecting Care: Per HPI PAST MEDICAL HISTORY:See Below PAST SURGICAL HISTORY:See Below FAMILY HISTORY:See Below SOCIAL HISTORY:See Below HOME MEDICATIONS:See Below ALLERGIES:See Below VITALS:See Below PHYSICAL EXAMINATION: GENERAL: Sitting up in bed, alert, slightly ill-appearing, disheveled slow to respond EYE EXAM: normal conjunctiva. OROPHARYNX: mucous membranes are moist NECK: supple, no nuchal rigidity, no adenopathy, non-tender LUNGS: Clear to auscultation. Normal chest wall mechanics HEART: no murmurs, S1 normal and S2 normal ABDOMEN: abdomen soft, non-tender, normo-active bowel sounds, no masses, no rebound or guarding. UPPER EXTREMITIES: upper extremities are grossly normal. LOWER EXTREMITIES: No pitting edema. NEURO EXAM: Awake alert oriented to person place and time, cranial nerves II-XII intact with a slight right-sided facial droop which is old per patient, slow and slightly slurred speech which is old per patient, no weakness of arms, no weakness of legs. MEDICAL DECISION MAKING: Patient is an 83-year-old male who presents ER for the above-stated complaint. IV was established blood was obtained. Labs show mild leukocytosis of 11.5. No significant anemia. INR unremarkable. BMP along with LFTs bilirubin was unremarkable. Troponin was negative. Lipase normal. UA with nitrites leuks whites and +2 bacteria consistent with a UTI. Viral panel is negative. Chest x-ray was clean as well as CT head and abdomen pelvis. Patient was given IV antibiotics and IV fluids. Updated bedside. Unable to ambulate and consequently discussed with the hospitalist for further evaluation management treatment. Consults/Care Managements Discussions: Per [facility] Triage Nursing notes reviewed. Limited review of prior medical records performed Vital Signs: reviewed and remarkable for no significant abnormalities Differential diagnosis: Differential diagnoses includes but is not limited to gastritis, peptic ulcer disease, GERD, gallbladder disease, pancreatitis, small bowel obstruction, appendicitis, diverticulitis, hernia, urinary tract infection, torsion, [/ectopic (if female)], perforation, trauma, infectious. ER treatment provided: See below Diagnostics interpreted by me include EKG and cardiac monitoring as listed below: -Cardiac Monitoring: An order was placed for continuous cardiac monitoring. The monitor shows a rate of 90 with sinus rhythm. -ECG: Sinus rhythm rate 92 Left axis No PVCs QTc 472 -Laboratory studies:Interpreted by me as stated above in MDM and shown below. Imaging studies: Xrays: As interpreted by me: Portable AP upright 1 view of the chest shows no focal infiltrate CTs show: CT head and abdomen pelvis is unremarkable Procedures:none Critical Care: None Past Med/Surg History Medical History Atrial fibrillation CKD (chronic kidney disease) stage 3, GFR 30-59 ml/min DVT (deep venous thrombosis) History of CVA (cerebrovascular accident) Hypertension Pulmonary emboli Pulmonary embolism TIA (transient ischemic attack) Surgical History No pertinent past surgical history Family History Other Family history non-contributory Social History Smoking Status: Never smoker Second Hand Exposure: No; Do You Dip or Chew Tobacco: No; Hx Alcohol Use: No Hx Substance Use: No Preferred Language: Portuguese 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 Ability: Effective 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 Beliefs That Will Affect Care: None Current Living Situation: Family Current Living Situation Comment: with daughter Feels Safe at Home: Yes Assistive Devices: Cane and Walker Allergies Allergies Allergy/AdvReac Type Severity Reaction Status Date / Time No Known Allergies Allergy Verified 12/04/23 19:59 Home Meds Home Medications Medication Instructions Recorded Confirmed amlodipine 5 mg tablet 5 mg PO QAM 10/10/19 12/04/23 lisinopril 20 mg tablet 20 mg PO QAM 10/10/19 12/04/23 simvastatin 20 mg tablet 20 mg PO HS 10/10/19 12/04/23 tamsulosin 0.4 mg capsule 0.4 mg PO QAM 12/04/23 12/04/23 Previous Rx's Medication Instructions Recorded apixaban 5 mg tablet (Eliquis) 5 mg PO Q12H #60 tabs 05/12/21 metoprolol tartrate 25 mg tablet 12.5 mg (1/2 x 25 mg) PO BID #60 03/16/23 tabs Results & Data (ED) Vital Signs Vital Signs - 24 hr 12/04/23 18:33 12/04/23 18:45 12/04/23 19:53 Temperature 37.4 C Temperature Source Oral Pulse Rate 97 H 93 H 99 H Pulse Rate [Apical] Respiratory Rate 18 Respiratory Effort / Characteristics Non-Labored Respiratory Depth Normal Respiratory Pattern Regular Blood Pressure 100/63 Blood Pressure [Right Arm] Blood Pressure Mean 75 Blood Pressure Mean [Right Arm] Pulse Oximetry 93 Oxygen Delivery Method Room Air Sepsis Recent Fever Within 48 Hours No Sepsis New/Unexplained Change in Mental Status N/A Sepsis Action Taken by Nursing No Action Required 12/04/23 20:26 12/04/23 22:37 Temperature Temperature Source Pulse Rate Pulse Rate [Apical] 86 72 Respiratory Rate Respiratory Effort / Characteristics Respiratory Depth Respiratory Pattern Blood Pressure Blood Pressure [Right Arm] 100/58 L Blood Pressure Mean Blood Pressure Mean [Right Arm] 72 Pulse Oximetry 97 95 Oxygen Delivery Method Room Air Room Air Sepsis Recent Fever Within 48 Hours Sepsis New/Unexplained Change in Mental Status Sepsis Action Taken by Nursing Laboratory Data 12/04/23 18:50 12/04/23 18:50 Lab Results 12/04/23 12/04/23 Range/Units 18:50 20:20 WBC 11.51 H (4.8-10.8) K/ul RBC 4.47 L (4.70-6.10) M/uL Hgb 13.9 L (14.0-18.0) g/dl Hct 39.9 L (42.0-52.0) % MCV 89.3 (80.0-100.0) fL MCH 31.1 (25.0-34.0) pg MCHC 34.8 (32.0-36.0) g/dL RDW Std Deviation 46.8 H (36.4-46.3) fL RDW Coeff of Renan 14.4 (11.5-14.5) % Plt Count 249 (130-400) K/uL MPV 9.5 (9.4-12.4) fL Immature Gran % (Auto) 0.3 % Neut % (Auto) 97.6 % Lymph % (Auto) 1.2 % Bullock % (Auto) 0.6 % Eos % (Auto) 0.1 % Baso % (Auto) 0.2 % Neut # (Auto) 11.24 H (1.40-6.50) K/uL Lymph # (Auto) 0.14 L (1.20-3.40) K/uL Bullock # (Auto) 0.07 L (0.11-0.59) K/uL Eos # (Auto) 0.01 (0.00-0.50) K/uL Baso # (Auto) 0.02 (0.00-0.20) K/uL Immature Gran # (Auto) 0.03 (0.01-0.20) K/uL PT 11.7 (9.0-12.0) Seconds INR 1.1 (0.9-1.1) APTT 25 (21-31) Seconds PTT Ratio 0.9 Sodium 139 (136-145) mmol/L Potassium 3.8 (3.5-5.1) mmol/L Chloride 106 (98-107) mmol/L Carbon Dioxide 24 (21-32) mmol/L Anion Gap 9 (3-11) BUN 22 (6-23) mg/dl Creatinine 1.01 (0.6-1.4) mg/dl Est Cr Clr Drug Dosing Not Reportable Est GFR ( Amer) 78.2 ml/min Est GFR (Non-Af Amer) 67.5 ml/min BUN/Creatinine Ratio 21.8 H (10-20) Glucose 132 H (70-99(Fasting)) mg/dl Calcium 9.2 (8.6-10.3) mg/dl Magnesium 1.9 (1.7-2.4) mg/dl Total Bilirubin 1.0 (0.2-1.0) mg/dl AST 22 (13-39) U/L ALT 14 (7-52) U/L Alkaline Phosphatase 114 H (34-104) U/L Troponin I High Sens 5.1 (0-20) pg/ml Total Protein 7.0 (6.0-8.3) gm/dl Albumin 3.7 (3.4-5.0) gm/dl Globulin 3.3 (2.5-4.0) gm/dl Albumin/Globulin Ratio 1.1 (0.9-2) Lipase 12 (11-82) U/L Urine Color Yellow Urine Appearance Cloudy A (Clear) Urine pH 6.0 (4.5-7.5) Ur Specific Gower 1.017 (1.000-1.030) Urine Protein 1+ H (Negative) Urine Glucose (UA) Negative (Negative) Urine Ketones Trace H (Negative) Urine Blood 2+ H (Negative) Urine Nitrite Positive A (Negative) Urine Bilirubin Negative (Negative) Urine Urobilinogen Negative (Negative) Ur Leukocyte Esterase 2+ H (Negative) Urine WBC (Auto) >30 H (0-5) /hpf Urine RBC (Auto) 0-4 (0-4) /hpf U Hyaline Cast (Auto) 1-5 (0-5) /lpf U Epithel Cells (Auto) 0-5 (0-5) /lpf Urine Bacteria (Auto) 2+ H (Negative) SARS-CoV-2 (PCR) NEGATIVE (Negative) Influenza Type A (PCR) Negative (Neg) Influenza Type B (PCR) Negative (Neg) RSV (RT-PCR) Negative (Neg) Administered Medications Discontinued Medications Sodium Chloride (Nss) 500 mls @ 999 mls/hr IV .Q31M ONE Stop: 12/04/23 19:05 Last Infusion: 12/04/23 19:27 Dose: Infused Documented By: Admin: 12/04/23 18:55 Dose: 999 mls/hr Documented By: BRIDGER Ceftriaxone Sodium (Rocephin) 2,000 mg in 50 mls @ 100 mls/hr IV NOW STA Stop: 12/04/23 21:58 Last Infusion: 12/04/23 22:25 Dose: Infused Documented By: Admin: 12/04/23 21:50 Dose: 100 mls/hr Documented By: BRIDGER Ioversol (Optiray 320 500ml) 87 ml IV ONCE ONE Stop: 12/04/23 20:05 Last Admin: 12/04/23 20:04 Dose: 87 ml Documented By: JAYE Imaging Data Radiologist's Impression: Chest X-Ray 12/04/23 18:34 XR chest 1V portable CLINICAL HISTORY: Weakness COMPARISON STUDY: Chest CT March 12, 2023. Chest radiograph June 15, 2023. FINDINGS: There is no pneumothorax or pleural effusion. Linear bilateral lower lung densities represent atelectasis or scarring. There is no consolidation to suggest pneumonia. Pulmonary vascularity is normal. Cardiomediastinal silhouette is stable. IMPRESSION: No acute cardiopulmonary findings. No change in appearance of the chest. ACT 112: Negative or not required by law. Electronically signed by: Alexander Hunter M.D. 12/04/2023 7:19 PM Abdomen/Pelvis CT 12/04/23 18:54 Exam(s): CT ABDOMEN + PELVIS With Contrast IV Amt: 83 ml optiray 320 EXAM: CT Abdomen and Pelvis With Intravenous Contrast CLINICAL HISTORY: Reason for exam: abd painn. TECHNIQUE: Axial computed tomography images of the abdomen and pelvis with intravenous contrast. CTDI is 15.01 mGy and DLP is 762.38 mGy-cm. Automated exposure control was utilized for the study. A dose lowering technique was utilized adhering to the principles of ALARA. CONTRAST: Patient received 83 ml optiray 320 of IV contrast COMPARISON: No relevant prior studies available. FINDINGS: Lung bases: Scarring at the right lung base. ABDOMEN: Liver: Innumerable subcentimeter cystic foci within the liver. Gallbladder and bile ducts: Unremarkable. Pancreas: Unremarkable. Spleen: Unremarkable. Adrenals: Unremarkable. Kidneys and ureters: Multiple cysts within the kidneys. No hydronephrosis. Stomach and bowel: Unremarkable. PELVIS: Appendix: The appendix is not visualized. Bladder: Unremarkable. Reproductive: Prostate mildly enlarged measuring 5 cm. ABDOMEN and PELVIS: Intraperitoneal space: Unremarkable. No free air. No significant fluid collection. Bones/joints: Advanced degenerative changes within the spine. Soft tissues: Unremarkable. Vasculature: IVC filter in place. Aortobiiliac atherosclerotic calcifications. Lymph nodes: Unremarkable. IMPRESSION: No acute abnormality within the abdomen or pelvis. Electronically signed by: Christophe Kee MD 12/04/23 20:[address] 12/04/23 18:54 Exam(s): CT HEAD Without Contrast EXAM: CT Head Without Intravenous Contrast CLINICAL HISTORY: Reason for exam: grande. TECHNIQUE: Axial computed tomography images of the head/brain without intravenous contrast. CTDI is 36.9 mGy and DLP is 625.8 mGy-cm. Automated exposure control was utilized for the study. A dose lowering technique was utilized adhering to the principles of ALARA. COMPARISON: Head CT December 14, 2019 FINDINGS: Brain: No intracranial hemorrhage, mass-effect, or cerebral edema. Chronic microvascular ischemic changes. Ventricles: Unremarkable. Bones/joints: Unremarkable. No fracture. Soft tissues: Unremarkable. Sinuses: No acute sinusitis. Mastoid air cells: Unremarkable as visualized. IMPRESSION: 1. No acute intracranial abnormality. Electronically signed by: Christophe Kee MD 12/04/23 20:49 PM Discharge Plan Visit Data Chief Complaint: Flu Like Symptoms Stated Complaint: VOMITING, WEAKNESSS, NAUSEA, DIARRHEA ED Provider: Mikhail Blanca Discharge Problem: UTI (urinary tract infection), Weakness, Nausea vomiting and diarrhea Forms Stand Alone Forms: [employer] Prescriptions Prescriptions: No Action lisinopril 20 mg tablet 20 mg PO QAM amlodipine 5 mg tablet 5 mg PO QAM simvastatin 20 mg tablet 20 mg PO HS Eliquis 5 mg tablet 5 mg PO Q12H Qty: 60 0RF metoprolol tartrate 25 mg Tablet 12.5 mg PO BID Qty: 60 0RF tamsulosin 0.4 mg capsule 0.4 mg PO QAM Referrals Referrals: Tacho Dorsey MD [Primary Care Provider] - Discharge Problem: UTI (urinary tract infection) Qualifiers: Urinary tract infection type: acute cystitis Hematuria presence: without hematuria Qualified Code(s): N30.00 - Acute cystitis without hematuria
[2023-12-04 19:12] LABS: Hematocrit (blood only) 39.9 % (42.0-52.0); Hemoglobin 13.9 g/dl (14.0-18.0); Mean Corpuscular Hemoglobin 31.1 pg (25.0-34.0); Mean Corpuscular Hgb Conc 34.8 g/dL (32.0-36.0); Mean Corpuscular Volume 89.3 fL (80.0-100.0); Mean Platelet Volume 9.5 fL (9.4-12.4); Platelet Count 249 K/uL (130-400); RDW Coefficient of Variation 14.4 % (11.5-14.5); RDW Standard Deviation 46.8 fL (36.4-46.3); Red Blood Count 4.47 M/uL (4.70-6.10); White Blood Count 11.51 K/ul (4.8-10.8)
--- NOTE | 2023-12-04 19:20 | XRay Report ---
XR chest 1V portable CLINICAL HISTORY: Weakness COMPARISON STUDY: Chest CT March 12, 2023. Chest radiograph June 15, 2023. FINDINGS: There is no pneumothorax or pleural effusion. Linear bilateral lower lung densities represe nt atelectasis or scarring. There is no consolidation to suggest pneumonia. Pulmonary vascularity is normal. Cardiomediastinal silhouette is stable. IMPRESSION: No acute cardiopulmonary findings. No change in appearance of the chest. ACT 112: Negative or not required by law. Electronically signed by: Alexander Hunter M.D. 12/04/2023 7:19 PM
[2023-12-04 19:30] LABS: Alanine Aminotransferase 14 U/L (7-52); Albumin Globulin Ratio 1.1 (0.9-2); Albumin Level 3.7 gm/dl (3.4-5.0); Alkaline Phosphatase 114 U/L (34-104); Anion Gap 9 (3-11); Aspartate Aminotransferase 22 U/L (13-39); BUN Creatinine Ratio 21.8 (10-20); Blood Urea Nitrogen 22 mg/dl (6-23); Calcium 9.2 mg/dl (8.6-10.3); Carbon Dioxide 24 mmol/L (21-32); Chloride 106 mmol/L (98-107); Est GFR (African American) 78.2 ml/min; Est GFR (Non-African American) 67.5 ml/min; Globulin 3.3 gm/dl (2.5-4.0); Glucose 132 mg/dl (70-99(Fasting)); Lipase 12 U/L (11-82); Magnesium 1.9 mg/dl (1.7-2.4); Potassium 3.8 mmol/L (3.5-5.1); Sodium 139 mmol/L (136-145)
[2023-12-04 19:34] LABS: Basophils # (auto) 0.02 K/uL (0.00-0.20); Basophils % (auto) 0.2 %; Eosinophils # (auto) 0.01 K/uL (0.00-0.50); Eosinophils % (auto) 0.1 %; Immature Granulocytes # (auto) 0.03 K/uL (0.01-0.20); Immature Granulocytes % (auto) 0.3 %; Lymphocytes # (auto) 0.14 K/uL (1.20-3.40); Lymphocytes % (auto) 1.2 %; Monocytes # (auto) 0.07 K/uL (0.11-0.59); Monocytes % (auto) 0.6 %; Neutrophils # (auto) 11.24 K/uL (1.40-6.50); Neutrophils % (auto) 97.6 %
[2023-12-04 19:36] LABS: Troponin I High Sensitivity 5.1 pg/ml (0-20)
[2023-12-04 19:40] LABS: INR 1.1 (0.9-1.1); Partial Thromboplastin Ratio 0.9; Partial Thromboplastin Time 25 Seconds (21-31); Prothrombin Time 11.7 Seconds (9.0-12.0)
[2023-12-04 19:49] LABS: Influenza A virus by PCR Negative (Neg); Influenza B virus by PCR Negative (Neg); RSV by PCR Negative (Neg); SARS CoV2 RNA(COVID-19) Ceph NEGATIVE (Negative)
[2023-12-04] MEDS: OPTIRAY 320 500ml IV ONE (20:04)
--- NOTE | 2023-12-04 20:47 | CT Scan Report ---
Exam(s): CT ABDOMEN + PELVIS With Contrast IV Amt: 83 ml optiray 320 EXAM: CT Abdomen and Pelvis With Intravenous Contrast CLINICAL HISTORY: Reason for exam: abd painn. TECHNIQUE: Axial computed tomography images of the abdomen and pelvis with intravenous contrast. CTDI is 15.01 mGy and DLP is 762.38 mGy-cm. Automated exposure control was utilized for the study. A dose lowering technique was utilized adhering to the principles of ALARA. CONTRAST: Patient received 83 ml optiray 320 of IV contrast COMPARISON: No relevant prior studies available. FINDINGS: Lung bases: Scarring at the right lung base. ABDOMEN: Liver: Innumerable subcentimeter cystic foci within the liver. Gallbladder and bile ducts: Unremarkable. Pancreas: Unremarkable. Spleen: Unremarkable. Adrenals: Unremarkable. Kidneys and ureters: Multiple cysts within the kidneys. No hydronephrosis. Stomach and bowel: Unremarkable. PELVIS: Appendix: The appendix is not visualized. Bladder: Unremarkable. Reproductive: Prostate mildly enlarged measuring 5 cm. ABDOMEN and PELVIS: Intraperitoneal space: Unremarkable. No free air. No significant fluid collection. Bones/joints: Advanced degenerative changes within the spine. Soft tissues: Unremarkable. Vasculature: IVC filter in place. Aortobiiliac atherosclerotic calcifications. Lymph nodes: Unremarkable. IMPRESSION: No acute abnormality within the abdomen or pelvis. Electronically signed by: Christophe Kee MD 12/04/23 20:46 PM
--- NOTE | 2023-12-04 20:49 | CT Scan Report ---
Exam(s): CT HEAD Without Contrast EXAM: CT Head Without Intravenous Contrast CLINICAL HISTORY: Reason for exam: grande. TECHNIQUE: Axial computed tomography images of the head/brain without intravenous contrast. CTDI is 36.9 mGy and DLP is 625.8 mGy-cm. Automated exposure control was utilized for the study. A dose lowering technique was utilized adhering to the principles of ALARA. COMPARISON: Head CT December 14, 2019 FINDINGS: Brain: No intracranial hemorrhage, mass-effect, or cerebral edema. Chronic microvascular ischemic changes. Ventricles: Unremarkable. Bones/joints: Unremarkable. No fracture. Soft tissues: Unremarkable. Sinuses: No acute sinusitis. Mastoid air cells: Unremarkable as visualized. IMPRESSION: 1. No acute intracranial abnormality. Electronically signed by: Christophe Kee MD 12/04/23 20:49 PM
[2023-12-04 20:54] LABS: Appearance Urine Cloudy (Clear); Bacteria Urine Automated 2+ (Negative); Bilirubin Urine Negative (Negative); Blood Urine 2+ (Negative); Color Urine Yellow; Epithelial Cell Urine Auto 0-5 /lpf (0-5); Glucose Urine UA Negative (Negative); Ketones Urine Trace (Negative); Leukocyte Esterase Urine 2+ (Negative); Nitrite Urine Positive (Negative); Protein Urine 1+ (Negative); RBC Urine Automated 0-4 /hpf (0-4); Specific Gravity Urine 1.017 (1.000-1.030); Urobilinogen Urine Negative (Negative); WBC Urine Automated >30 /hpf (0-5)
[2023-12-04] MEDS: cefTRIAXone SODIUM 2,000 MG/50 ML BAG IV STA (21:50)
--- NOTE | 2023-12-04 22:59 | History & Physical Report ---
Date of Service December 04, 2023 Assessment & Plan (1) UTI (urinary tract infection): Plan: 83-year-old male with past medical history significant for hyperlipidemia, history of CVA right hemiplegia currently ambulates with walker, hypertension, CKD stage III, A-fib, right foot drop, history of pulmonary embolism, history of amputation of left great toe, who lives at home with his daughter, can eat chopped food presents with nausea vomiting diarrhea and shaking chills. Daughter states last 2 days appetite is down. Today he was having chills and has a few episodes of nausea vomiting and dry heaving. Last night had episode of diarrhea. Patient currently resting comfortably and hemodynamically stable. Patient currently denies any abdominal pain. Currently states nausea is okay. Denies any chest pain. No cough. Daughter thinks he had low-grade fevers.. Denies any headache. Says he is micturating okay. Daughter states he was recently started on Flomax and supposed to see urology soon. But he still having some episodes of urinary incontinence as per daughter. Hemodynamics are okay. Today he was weak and not able to ambulate as per daughter. Talked with daughter on the phone UTI Low-grade fevers Nausea/vomiting/diarrhea Weakness Starting on Rocephin and gentle fluids PT OT when stable Clear liquid diet Will monitor the response History of CVA Speaking slowly is somewhat difficult to understand No recent TIAs as per daughter On statin and Eliquis History of A-fib On metoprolol and Eliquis Hypertension On amlodipine, lisinopril and metoprolol Will monitor History of BPH On Flomax Monitor for urinary retention DVT prophylaxis On Eliquis Disposition Medical floor Full code History of Present Illness Chief Complaint: UTI, weakness Primary Care Provider: Tacho Dorsey MD 83-year-old male with past medical history significant for hyperlipidemia, history of CVA right hemiplegia currently ambulates with walker, hypertension, CKD stage III, A-fib, right foot drop, history of pulmonary embolism, history of amputation of left great toe, who lives at home with his daughter, can eat chopped food presents with nausea vomiting diarrhea and shaking chills. Daughter states last 2 days appetite is down. Today he was having chills and has a few episodes of nausea vomiting and dry heaving. Last night had episode of diarrhea. Patient currently resting comfortably and hemodynamically stable. Patient currently denies any abdominal pain. Currently states nausea is okay. Denies any chest pain. No cough. Daughter thinks he had low-grade fevers.. Denies any headache. Says he is micturating okay. Daughter states he was recently started on Flomax and supposed to see urology soon. But he still having some episodes of urinary incontinence as per daughter. Hemodynamics are okay. Today he was weak and not able to ambulate as per daughter. Talked with daughter on the phone Past medical history. As mentioned above Past surgical history. Colorectal cancer screening Social history. current lives with the daughter. No smoking. No alcohol use. No drug use. Family history. No family history on file Allergies Allergy/AdvReac Type Severity Reaction Status Date / Time No Known Allergies Allergy Verified 12/04/23 19:59 Home Medications Medication Instructions Recorded Confirmed Type amlodipine 5 mg tablet 5 mg PO QAM 10/10/19 12/04/23 History lisinopril 20 mg tablet 20 mg PO QAM 10/10/19 12/04/23 History simvastatin 20 mg tablet 20 mg PO HS 10/10/19 12/04/23 History apixaban 5 mg tablet (Eliquis) 5 mg PO Q12H #60 tabs 05/12/21 12/04/23 Rx metoprolol tartrate 25 mg tablet 12.5 mg (1/2 x 25 mg) PO BID #60 03/16/23 12/04/23 Rx tabs tamsulosin 0.4 mg capsule 0.4 mg PO QAM 12/04/23 12/04/23 History Past Med/Surg History Medical History Atrial fibrillation CKD (chronic kidney disease) stage 3, GFR 30-59 ml/min DVT (deep venous thrombosis) History of CVA (cerebrovascular accident) Hypertension Pulmonary emboli Pulmonary embolism TIA (transient ischemic attack) Surgical History No pertinent past surgical history Family History Other Family history non-contributory Social History Smoking Status: Never smoker Second Hand Exposure: No; Do You Dip or Chew Tobacco: No; Hx Alcohol Use: No Hx Substance Use: No Preferred Language: Uzbek 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 Ability: Effective 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 Ability Comment: speech garbled, but understandable [employer] Required: No Beliefs That Will Affect Care: None Current Living Situation: Family Current Living Situation Comment: lives with daughter Other Information That Helps Us Care for You: No Feels Safe at Home: Yes Safety Concerns: Feels Safe At This Time Assistive Devices: Brace/Splint/Immobilizer, Cane, Denture - Upper, Denture - Lower and Walker Assistive Devices Comment: daughter took patient's dentures home Review of Systems Review of Systems: All systems reviewed & are unremarkable except as noted in HPI & below Physical Exam Physical Exam: General- Not in acute distress Head- atraumatic Eyes- PERRL. ENT- oropharynx clear Neck- supple, no JVD. Lungs- clear to auscultation no wheezing or crackles Heart- regular rhythm; no murmur, no gallop. Abdomen- normal bowel sounds, soft, nontender, no distension Extremities- no pretibial edema, no erythema seen Neuro- alert, oriented ; PERRL, right facial droop;has dysarthria; motor 4/5 bilaterally; Skin- warm & dry Results & Data Results & Data Vital Signs (Past 12 Hours) Vital Signs Temp Pulse Pulse Resp BP BP Pulse Ox 12/04/23 22:37 72 100/58 L 95 12/04/23 20:26 86 97 12/04/23 19:53 99 H 12/04/23 18:45 93 H 12/04/23 18:33 37.4 C 97 H 18 100/63 93 O2 Del Method 12/04/23 22:37 Room Air 12/04/23 20:26 Room Air 12/04/23 19:53 12/04/23 18:45 12/04/23 18:33 Room Air Diagnostic Findings Laboratory Results WBC 11.51 K/ul (4.8-10.8) H 12/04/23 18:50 RBC 4.47 M/uL (4.70-6.10) L 12/04/23 18:50 Hgb 13.9 g/dl (14.0-18.0) L 12/04/23 18:50 Hct 39.9 % (42.0-52.0) L 12/04/23 18:50 MCV 89.3 fL (80.0-100.0) 12/04/23 18:50 MCH 31.1 pg (25.0-34.0) 12/04/23 18:50 MCHC 34.8 g/dL (32.0-36.0) 12/04/23 18:50 RDW Std Deviation 46.8 fL (36.4-46.3) H 12/04/23 18:50 RDW Coeff of Renan 14.4 % (11.5-14.5) 12/04/23 18:50 Plt Count 249 K/uL (130-400) 12/04/23 18:50 MPV 9.5 fL (9.4-12.4) 12/04/23 18:50 Immature Gran % (Auto) 0.3 % 12/04/23 18:50 Neut % (Auto) 97.6 % 12/04/23 18:50 Lymph % (Auto) 1.2 % 12/04/23 18:50 Lynn % (Auto) 0.6 % 12/04/23 18:50 Eos % (Auto) 0.1 % 12/04/23 18:50 Baso % (Auto) 0.2 % 12/04/23 18:50 Neut # (Auto) 11.24 K/uL (1.40-6.50) H 12/04/23 18:50 Lymph # (Auto) 0.14 K/uL (1.20-3.40) L 12/04/23 18:50 Lynn # (Auto) 0.07 K/uL (0.11-0.59) L 12/04/23 18:50 Eos # (Auto) 0.01 K/uL (0.00-0.50) 12/04/23 18:50 Baso # (Auto) 0.02 K/uL (0.00-0.20) 12/04/23 18:50 Immature Gran # (Auto) 0.03 K/uL (0.01-0.20) 12/04/23 18:50 PT 11.7 Seconds (9.0-12.0) 12/04/23 18:50 INR 1.1 (0.9-1.1) 12/04/23 18:50 APTT 25 Seconds (21-31) 12/04/23 18:50 PTT Ratio 0.9 12/04/23 18:50 Sodium 139 mmol/L (136-145) 12/04/23 18:50 Potassium 3.8 mmol/L (3.5-5.1) 12/04/23 18:50 Chloride 106 mmol/L (98-107) 12/04/23 18:50 Carbon Dioxide 24 mmol/L (21-32) 12/04/23 18:50 Anion Gap 9 (3-11) 12/04/23 18:50 BUN 22 mg/dl (6-23) 12/04/23 18:50 Creatinine 1.01 mg/dl (0.6-1.4) 12/04/23 18:50 Est Cr Clr Drug Dosing Not Reportable 12/04/23 18:50 Est GFR ( Amer) 78.2 ml/min 12/04/23 18:50 Est GFR (Non-Af Amer) 67.5 ml/min 12/04/23 18:50 BUN/Creatinine Ratio 21.8 (10-20) H 12/04/23 18:50 Glucose 132 mg/dl (70-99(Fasting)) H 12/04/23 18:50 Calcium 9.2 mg/dl (8.6-10.3) 12/04/23 18:50 Magnesium 1.9 mg/dl (1.7-2.4) 12/04/23 18:50 Total Bilirubin 1.0 mg/dl (0.2-1.0) 12/04/23 18:50 AST 22 U/L (13-39) 12/04/23 18:50 ALT 14 U/L (7-52) 12/04/23 18:50 Alkaline Phosphatase 114 U/L (34-104) H 12/04/23 18:50 Troponin I High Sens 5.1 pg/ml (0-20) 12/04/23 18:50 Total Protein 7.0 gm/dl (6.0-8.3) 12/04/23 18:50 Albumin 3.7 gm/dl (3.4-5.0) 12/04/23 18:50 Globulin 3.3 gm/dl (2.5-4.0) 12/04/23 18:50 Albumin/Globulin Ratio 1.1 (0.9-2) 12/04/23 18:50 Lipase 12 U/L (11-82) 12/04/23 18:50 Urine Color Yellow 12/04/23 20:20 Urine Appearance Cloudy (Clear) A 12/04/23 20:20 Urine pH 6.0 (4.5-7.5) 12/04/23 20:20 Ur Specific [place] 1.017 (1.000-1.030) 12/04/23 20:20 Urine Protein 1+ (Negative) H 12/04/23 20:20 Urine Glucose (UA) Negative (Negative) 12/04/23 20:20 Urine Ketones Trace (Negative) H 12/04/23 20:20 Urine Blood 2+ (Negative) H 12/04/23 20:20 Urine Nitrite Positive (Negative) A 12/04/23 20:20 Urine Bilirubin Negative (Negative) 12/04/23 20:20 Urine Urobilinogen Negative (Negative) 12/04/23 20:20 Ur Leukocyte Esterase 2+ (Negative) H 12/04/23 20:20 Urine WBC (Auto) >30 /hpf (0-5) H 12/04/23 20:20 Urine RBC (Auto) 0-4 /hpf (0-4) 12/04/23 20:20 U Hyaline Cast (Auto) 1-5 /lpf (0-5) 12/04/23 20:20 U Epithel Cells (Auto) 0-5 /lpf (0-5) 12/04/23 20:20 Urine Bacteria (Auto) 2+ (Negative) H 12/04/23 20:20 SARS-CoV-2 (PCR) NEGATIVE (Negative) 12/04/23 18:50 Influenza Type A (PCR) Negative (Neg) 12/04/23 18:50 Influenza Type B (PCR) Negative (Neg) 12/04/23 18:50 RSV (RT-PCR) Negative (Neg) 12/04/23 18:50 Impressions Chest X-Ray 12/04/23 18:34 XR chest 1V portable CLINICAL HISTORY: Weakness COMPARISON STUDY: Chest CT March 12, 2023. Chest radiograph June 15, 2023. FINDINGS: There is no pneumothorax or pleural effusion. Linear bilateral lower lung densities represent atelectasis or scarring. There is no consolidation to suggest pneumonia. Pulmonary vascularity is normal. Cardiomediastinal silhouette is stable. IMPRESSION: No acute cardiopulmonary findings. No change in appearance of the chest. ACT 112: Negative or not required by law. Electronically signed by: Alexander Hunter M.D. 12/04/2023 7:19 PM Abdomen/Pelvis CT 12/04/23 18:54 Exam(s): CT ABDOMEN + PELVIS With Contrast IV Amt: 83 ml optiray 320 EXAM: CT Abdomen and Pelvis With Intravenous Contrast CLINICAL HISTORY: Reason for exam: abd painn. TECHNIQUE: Axial computed tomography images of the abdomen and pelvis with intravenous contrast. CTDI is 15.01 mGy and DLP is 762.38 mGy-cm. Automated exposure control was utilized for the study. A dose lowering technique was utilized adhering to the principles of ALARA. CONTRAST: Patient received 83 ml optiray 320 of IV contrast COMPARISON: No relevant prior studies available. FINDINGS: Lung bases: Scarring at the right lung base. ABDOMEN: Liver: Innumerable subcentimeter cystic foci within the liver. Gallbladder and bile ducts: Unremarkable. Pancreas: Unremarkable. Spleen: Unremarkable. Adrenals: Unremarkable. Kidneys and ureters: Multiple cysts within the kidneys. No hydronephrosis. Stomach and bowel: Unremarkable. PELVIS: Appendix: The appendix is not visualized. Bladder: Unremarkable. Reproductive: Prostate mildly enlarged measuring 5 cm. ABDOMEN and PELVIS: Intraperitoneal space: Unremarkable. No free air. No significant fluid collection. Bones/joints: Advanced degenerative changes within the spine. Soft tissues: Unremarkable. Vasculature: IVC filter in place. Aortobiiliac atherosclerotic calcifications. Lymph nodes: Unremarkable. IMPRESSION: No acute abnormality within the abdomen or pelvis. Electronically signed by: Christophe Kee MD 12/04/23 20:[address] 12/04/23 18:54 Exam(s): CT HEAD Without Contrast EXAM: CT Head Without Intravenous Contrast CLINICAL HISTORY: Reason for exam: grande. TECHNIQUE: Axial computed tomography images of the head/brain without intravenous contrast. CTDI is 36.9 mGy and DLP is 625.8 mGy-cm. Automated exposure control was utilized for the study. A dose lowering technique was utilized adhering to the principles of ALARA. COMPARISON: Head CT December 14, 2019 FINDINGS: Brain: No intracranial hemorrhage, mass-effect, or cerebral edema. Chronic microvascular ischemic changes. Ventricles: Unremarkable. Bones/joints: Unremarkable. No fracture. Soft tissues: Unremarkable. Sinuses: No acute sinusitis. Mastoid air cells: Unremarkable as visualized. IMPRESSION: 1. No acute intracranial abnormality. Electronically signed by: Christophe Kee MD 12/04/23 20:49 PM ECG Additional Comments: ECG. Normal sinus rhythm with a rate of 92. Left axis deviation. Nonspecific T wave abnormality Code Status & VTE Plan VTE Prophylaxis Plan VTE Prophylaxis will be ordered: Yes
[2023-12-05] MEDS ORDERED: ACETAMINOPHEN 325 MG TAB PO PRN (01:55)
[2023-12-05] MEDS ORDERED: ONDANSETRON INJ 2 MG/ML 2 ML VIAL IV PRN (01:55)
[2023-12-05] MEDS: D5W AND NSS 1,000 ML IV SCH (04:50)
[2023-12-05] MEDS: Patient's HEIGHT &/or WEIGHT Needed ONE (04:51)
[2023-12-05 05:46] LABS: Hematocrit (blood only) 35.8 % (42.0-52.0); Hemoglobin 12.2 g/dl (14.0-18.0); Mean Corpuscular Hgb Conc 34.1 g/dL (32.0-36.0); Mean Corpuscular Volume 90.9 fL (80.0-100.0); Mean Platelet Volume 9.3 fL (9.4-12.4); Platelet Count 221 K/uL (130-400); RDW Coefficient of Variation 14.5 % (11.5-14.5); RDW Standard Deviation 48.4 fL (36.4-46.3); Red Blood Count 3.94 M/uL (4.70-6.10); White Blood Count 18.98 K/ul (4.8-10.8)
[2023-12-05 05:57] LABS: BUN Creatinine Ratio 19.1 (10-20); Calcium 8.7 mg/dl (8.6-10.3); Creatinine Clr Calc Pharmacy 51.2 ml/min; Est GFR (African American) 70.6 ml/min; Est GFR (Non-African American) 60.9 ml/min; Potassium 4.2 mmol/L (3.5-5.1)
[2023-12-05 06:02] LABS: Basophils # (auto) 0.05 K/uL (0.00-0.20); Basophils % (auto) 0.3 %; Eosinophils # (auto) 0.01 K/uL (0.00-0.50); Eosinophils % (auto) 0.1 %; Immature Granulocytes # (auto) 0.08 K/uL (0.01-0.20); Immature Granulocytes % (auto) 0.4 %; Lymphocytes # (auto) 0.69 K/uL (1.20-3.40); Lymphocytes % (auto) 3.6 %; Monocytes # (auto) 0.86 K/uL (0.11-0.59); Monocytes % (auto) 4.5 %; Neutrophils # (auto) 17.29 K/uL (1.40-6.50); Neutrophils % (auto) 91.1 %
[2023-12-05 07:14] LABS: Toxic Vacuolation 2+
[2023-12-05] MEDS: lisinopril 20 MG TAB PO SCH (07:42)
[2023-12-05] MEDS: METOPROLOL TARTRATE 25 MG TAB PO SCH (07:43)
[2023-12-05] MEDS: amLODIPine BESYLATE 5 MG TAB PO SCH (07:43)
[2023-12-05] MEDS: APIXABAN 5 MG TABLET PO SCH (07:43)
[2023-12-05] MEDS: TAMSULOSIN HCL 0.4 MG CAP PO SCH (07:44)
--- NOTE | 2023-12-05 10:52 | Electrocardiogram Report ---
Test Reason : Blood Pressure : / mmHG Vent. Rate : 092 BPM Atrial Rate : 092 BPM P-R Int : 168 ms QRS Dur : 092 ms QT Int : 382 ms P-R-T Axes : 010 -43 077 degrees QTc Int : 472 ms Normal sinus rhythm Left axis deviation Incomplete right bundle branch block Abnormal ECG When compared with ECG of 14-MAR-2023 02:57, Sinus rhythm has replaced Atrial fibrillation Nonspecific T wave abnormality now evident in Anterolateral leads Confirmed by Rolan Abraham ([id number]) on 12/05/2023 10:52:39 AM Referred By: REFERRED SELF Confirmed By:Velasquez Abraham
--- NOTE | 2023-12-05 11:04 | Electrocardiogram Report ---
Test Reason : Blood Pressure : / mmHG Vent. Rate : 059 BPM Atrial Rate : 059 BPM P-R Int : 176 ms QRS Dur : 090 ms QT Int : 448 ms P-R-T Axes : 052 -38 033 degrees QTc Int : 443 ms Poor data quality, interpretation may be adversely affected Sinus bradycardia Left axis deviation Abnormal ECG When compared with ECG of 04-DEC-2023 18:49, (unconfirmed) Vent. rate has decreased BY 33 BPM Nonspecific T wave abnormality no longer evident in Anterolateral leads Confirmed by Rolan Abraham ([id number]) on 12/05/2023 11:04:13 AM Referred By: REFERRED SELF Confirmed By:Velasquez Abraham
--- NOTE | 2023-12-05 13:27 | Hospitalist Progress Note ---
Date of Service December 05, 2023 Assessment & Plan (1) UTI (urinary tract infection): Plan: 83-year-old male with past medical history significant for hyperlipidemia, history of CVA right hemiplegia currently ambulates with walker, hypertension, CKD stage III, A-fib, right foot drop, history of pulmonary embolism, history of amputation of left great toe, who lives at home with his daughter, can eat chopped food presents with nausea vomiting diarrhea and shaking chills. Urine tract infection Patient presented with nausea, vomiting. Reported history of low-grade fever Labs reviewed; leukocytosis present Chest x-ray personally reviewed; no acute finding CT abdomen pelvis; no acute findings. CT head without contrastno acute finding Urinalysis positive infection Urine culture growing E. coli Continue on ceftriaxone; plan to treat for 7 to 10 days. Follow-up on final culture/sensitivities Obtain blood culture; PT OT ordered History of CVA Speaking slowly is somewhat difficult to understand No recent TIAs as per daughter On statin and Eliquis, continue while inpatient History of A-fib On metoprolol and Eliquis, continue while inpatient Hypertension On amlodipine, lisinopril and metoprolol Continue on current meds History of BPH On Flomax Monitor for urinary [facility]. Currently on IV antibiotics; awaiting urine culture final sensitivity. PT OT ordered Full code Admission and Anticipated Discharge Date Admission Date: December 04, 2023 Subjective Patient seen and examined at bedside. He reports that he is feeling much better compared to admission. No complaints of nausea/vomiting today. Afebrile overnight No over night events Review of Systems Review of Systems: All systems reviewed & are unremarkable except as noted in Subjective Physical Exam Physical Exam: Constitutional: Awake, oriented to self, place. Not in distress. Respiratory: normal respiratory effort, lungs clear to auscultation, no wheeze, rales, rhonchi. Normal insp/exp effort, no accessory muscle use Cardiovascular: RRR, no murmur, no edema Vessels: no JVD or carotid bruit Chest: normal inspection of chest Abdomen: normal bowel sounds, soft, nontender, no hepatosplenomegaly Musculoskeletal: no cyanosis or clubbing, extremities motor strength 5/5 Skin: no rashes, warm and dry normal turgor Neurologic: PERRL, EOMI,. Speech slightly slower. Right-sided hemiplegia at baseline Psychiatric: A+Ox3, euthymic affect Results & Data Results & Data Vital Signs (Past 12 Hours) Vital Signs Temp Pulse Pulse Pulse Resp BP BP 12/05/23 11:20 36.4 C L 63 20 116/67 12/05/23 07:41 36.5 C 64 16 123/61 12/05/23 04:56 36.8 C 69 18 143/68 H 12/05/23 04:30 12/05/23 04:00 99/57 L 12/05/23 04:00 57 L 14 12/05/23 03:50 55 L 13 12/05/23 03:40 56 L 15 12/05/23 03:30 55 L 13 12/05/23 03:20 55 L 13 12/05/23 03:10 56 L 14 12/05/23 03:00 99/61 L 12/05/23 03:00 56 L 16 12/05/23 02:50 60 16 12/05/23 02:40 57 L 15 12/05/23 02:30 57 L 13 12/05/23 02:20 58 L 13 12/05/23 02:10 59 L 13 12/05/23 02:07 61 12/05/23 02:00 60 17 12/05/23 02:00 97/60 L 12/05/23 01:50 65 14 12/05/23 01:40 73 16 12/05/23 01:30 Pulse Ox O2 Del Method 12/05/23 11:20 96 Room Air 12/05/23 07:41 95 Room Air 12/05/23 04:56 97 Room Air 12/05/23 04:30 Room Air 12/05/23 04:00 12/05/23 04:00 97 12/05/23 03:50 92 12/05/23 03:40 96 12/05/23 03:30 99 12/05/23 03:20 92 12/05/23 03:10 95 12/05/23 03:00 12/05/23 03:00 97 12/05/23 02:50 97 12/05/23 02:40 97 12/05/23 02:30 93 12/05/23 02:20 93 12/05/23 02:10 93 12/05/23 02:07 12/05/23 02:00 95 12/05/23 02:00 12/05/23 01:50 96 12/05/23 01:40 94 12/05/23 01:30 96 (1) UTI (urinary tract infection) Hematuria presence: without hematuria Urinary tract infection type: acute cystitis Qualified Code(s): N30.00 - Acute cystitis without hematuria
[2023-12-05] MEDS: SIMVASTATIN 20 MG TAB PO SCH (19:49)
[2023-12-05] MEDS: cefTRIAXone SODIUM 2,000 MG in DEXTROSE 5 % MINI-B 50 ML IV SCH (19:50)
[2023-12-05] MEDS: METOCLOPRAMIDE HCL INJ 5 MG/ML 2 ML VIAL IV ONE (23:58)
[2023-12-06] MEDS: BACLOFEN 10 MG TAB PO STA (05:28)
[2023-12-06 06:16] LABS: Basophils # (auto) 0.04 K/uL (0.00-0.20); Basophils % (auto) 0.4 %; Eosinophils # (auto) 0.08 K/uL (0.00-0.50); Eosinophils % (auto) 0.8 %; Hematocrit (blood only) 34.6 % (42.0-52.0); Hemoglobin 11.7 g/dl (14.0-18.0); Immature Granulocytes # (auto) 0.09 K/uL (0.01-0.20); Immature Granulocytes % (auto) 0.9 %; Lymphocytes # (auto) 0.52 K/uL (1.20-3.40); Lymphocytes % (auto) 5.4 %; Mean Corpuscular Hemoglobin 30.6 pg (25.0-34.0); Mean Corpuscular Hgb Conc 33.8 g/dL (32.0-36.0); Mean Corpuscular Volume 90.6 fL (80.0-100.0); Mean Platelet Volume 9.6 fL (9.4-12.4); Monocytes # (auto) 0.63 K/uL (0.11-0.59); Monocytes % (auto) 6.5 %; Neutrophils # (auto) 8.35 K/uL (1.40-6.50); Platelet Count 186 K/uL (130-400); RDW Coefficient of Variation 14.7 % (11.5-14.5); RDW Standard Deviation 49.1 fL (36.4-46.3); Red Blood Count 3.82 M/uL (4.70-6.10); White Blood Count 9.71 K/ul (4.8-10.8)
[2023-12-06 06:25] LABS: Albumin Globulin Ratio 1.1 (0.9-2); Albumin Level 3.1 gm/dl (3.4-5.0); BUN Creatinine Ratio 25.5 (10-20); Bilirubin,Total 0.4 mg/dl (0.2-1.0); Calcium 8.4 mg/dl (8.6-10.3); Creatinine Clr Calc Pharmacy 57.4 ml/min; Est GFR (African American) 81.2 ml/min; Globulin 2.7 gm/dl (2.5-4.0); Potassium 3.9 mmol/L (3.5-5.1); Total Protein 5.8 gm/dl (6.0-8.3)
[2023-12-06] MEDS: BACLOFEN 10 MG TAB PO PRN (10:48)
--- NOTE | 2023-12-06 15:20 | Hospitalist Progress Note ---
Date of Service December 06, 2023 Assessment & Plan (1) UTI (urinary tract infection): Plan: 83-year-old male with past medical history significant for hyperlipidemia, history of CVA right hemiplegia currently ambulates with walker, hypertension, CKD stage III, A-fib, right foot drop, history of pulmonary embolism, history of amputation of left great toe, who lives at home with his daughter, can eat chopped food presents with nausea vomiting diarrhea and shaking chills. Urine tract infection Patient presented with nausea, vomiting. Reported history of low-grade fever Labs reviewed; leukocytosis present Chest x-ray personally reviewed; no acute finding CT abdomen pelvis; no acute findings. CT head without contrastno acute finding Urinalysis positive infection Urine culture growing E. coli; pansensitive Blood cultureno growth Continue on ceftriaxone; plan to treat for 7 to 10 days. History of CVA Speaking slowly is somewhat difficult to understand No recent TIAs as per daughter On statin and Eliquis, continue while inpatient History of A-fib On metoprolol and Eliquis, continue while inpatient Hypertension On amlodipine, lisinopril and metoprolol Continue on current meds History of BPH On Flomax Monitor for urinary retention DVT prophylaxis On Eliquis Disposition Medical floor. Patient is hospitalized for UTI. Currently on IV antibiotics; PT OT recommends home. Possible DC in a.m. if clinically stable Full code Admission and Anticipated Discharge Date Admission Date: December 04, 2023 Subjective Patient seen and examined at bedside. He reports episode of nausea, vomiting and hiccups. Improved with baclofen. Review of Systems Review of Systems: All systems reviewed & are unremarkable except as noted in Subjective Physical Exam Physical Exam: Constitutional: Awake, oriented to self, place. Not in distress. Respiratory: normal respiratory effort, lungs clear to auscultation, no wheeze, rales, rhonchi. Normal insp/exp effort, no accessory muscle use Cardiovascular: RRR, no murmur, no edema Vessels: no JVD or carotid bruit Chest: normal inspection of chest Abdomen: normal bowel sounds, soft, nontender, no hepatosplenomegaly Musculoskeletal: no cyanosis or clubbing, extremities motor strength 5/5 Skin: no rashes, warm and dry normal turgor Neurologic: PERRL, EOMI,. Speech slightly slower. Right-sided hemiplegia at baseline Psychiatric: A+Ox3, euthymic affect Results & Data Results & Data Vital Signs (Past 12 Hours) Vital Signs Temp Pulse Resp BP Pulse Ox O2 Del Method 12/06/23 14:46 36.5 C 64 16 108/61 96 Room Air 12/06/23 07:36 37.0 C 66 16 110/63 94 Room Air (1) UTI (urinary tract infection) Hematuria presence: without hematuria Urinary tract infection type: acute cystitis Qualified Code(s): N30.00 - Acute cystitis without hematuria
[2023-12-06] MEDS: METOCLOPRAMIDE HCL INJ 5 MG/ML 2 ML VIAL IV ONE (23:07)
[2023-12-07] MEDS: PANTOprazole 40 MG in SYRINGE 0 ML IV ONE (02:17)
[2023-12-07] MEDS: GABAPENTIN 100 MG CAP PO STA (02:17)
[2023-12-07 06:44] LABS: Basophils # (auto) 0.03 K/uL (0.00-0.20); Basophils % (auto) 0.5 %; Eosinophils # (auto) 0.12 K/uL (0.00-0.50); Eosinophils % (auto) 2.2 %; Hemoglobin 11.8 g/dl (14.0-18.0); Immature Granulocytes # (auto) 0.11 K/uL (0.01-0.20); Lymphocytes # (auto) 0.78 K/uL (1.20-3.40); Lymphocytes % (auto) 14.2 %; Mean Corpuscular Hemoglobin 30.3 pg (25.0-34.0); Mean Corpuscular Hgb Conc 33.7 g/dL (32.0-36.0); Mean Corpuscular Volume 89.7 fL (80.0-100.0); Mean Platelet Volume 9.6 fL (9.4-12.4); Monocytes # (auto) 0.72 K/uL (0.11-0.59); Monocytes % (auto) 13.1 %; Neutrophils # (auto) 3.72 K/uL (1.40-6.50); Platelet Count 168 K/uL (130-400); RDW Coefficient of Variation 14.6 % (11.5-14.5); RDW Standard Deviation 47.9 fL (36.4-46.3); White Blood Count 5.48 K/ul (4.8-10.8)
[2023-12-07 07:08] LABS: Albumin Globulin Ratio 1.2 (0.9-2); BUN Creatinine Ratio 26.5 (10-20); Bilirubin,Total 0.4 mg/dl (0.2-1.0); Calcium 8.3 mg/dl (8.6-10.3); Creatinine Clr Calc Pharmacy 57.4 ml/min; Est GFR (African American) 81.2 ml/min; Globulin 2.5 gm/dl (2.5-4.0); Potassium 3.8 mmol/L (3.5-5.1); Total Protein 5.5 gm/dl (6.0-8.3)
--- NOTE | 2023-12-07 11:58 | Discharge Summary ---
Date of Service December 07, 2023 Admission HPI Per Admitting Provider 83-year-old male with past medical history significant for hyperlipidemia, history of CVA right hemiplegia currently ambulates with walker, hypertension, CKD stage III, A-fib, right foot drop, history of pulmonary embolism, history of amputation of left great toe, who lives at home with his daughter, can eat chopped food presents with nausea vomiting diarrhea and shaking chills. Daughter states last 2 days appetite is down. Today he was having chills and has a few episodes of nausea vomiting and dry heaving. Last night had episode of diarrhea. Patient currently resting comfortably and hemodynamically stable. Patient currently denies any abdominal pain. Currently states nausea is okay. Denies any chest pain. No cough. Daughter thinks he had low-grade fevers.. Denies any headache. Says he is micturating okay. Daughter states he was recently started on Flomax and supposed to see urology soon. But he still having some episodes of urinary incontinence as per daughter. Hemodynamics are okay. Today he was weak and not able to ambulate as per daughter. Talked with daughter on the phone Past medical history. As mentioned above Past surgical history. Colorectal cancer screening Social history. current lives with the daughter. No smoking. No alcohol use. No drug use. Family history. No family history on file Admission Exam Per Admitting Provider General- Not in acute distress Head- atraumatic Eyes- PERRL. ENT- oropharynx clear Neck- supple, no JVD. Lungs- clear to auscultation no wheezing or crackles Heart- regular rhythm; no murmur, no gallop. Abdomen- normal bowel sounds, soft, nontender, no distension Extremities- no pretibial edema, no erythema seen Neuro- alert, oriented ; PERRL, right facial droop;has dysarthria; motor 4/5 bilaterally; Skin- warm & dry Principal Diagnosis Urine tract infection Discharge Exam Constitutional: Awake, oriented to self, place. Not in distress. Respiratory: normal respiratory effort, lungs clear to auscultation, no wheeze, rales, rhonchi. Normal insp/exp effort, no accessory muscle use Cardiovascular: RRR, no murmur, no edema Vessels: no JVD or carotid bruit Chest: normal inspection of chest Abdomen: normal bowel sounds, soft, nontender, no hepatosplenomegaly Musculoskeletal: no cyanosis or clubbing, extremities motor strength 5/5 Skin: no rashes, warm and dry normal turgor Neurologic: PERRL, EOMI,. Speech slightly slower. Right-sided hemiplegia at baseline Psychiatric: A+Ox3, euthymic affect Discharge Data Allergies Allergy/AdvReac Type Severity Reaction Status Date / Time No Known Allergies Allergy Verified 12/04/23 19:59 Consultations 12/04/23 21:29 ED Decision to Admit Stat Ordered Studies 12/04/23 18:54 CT Abd and Pelvis [CT abd pelvis IV con only] Stat CT head/brain wo con Stat Hospital Course (1) UTI (urinary tract infection): 83-year-old male with past medical history significant for hyperlipidemia, history of CVA right hemiplegia currently ambulates with walker, hypertension, CKD stage III, A-fib, right foot drop, history of pulmonary embolism, history of amputation of left great toe, who lives at home with his daughter, can eat chopped food presents with nausea vomiting diarrhea and shaking chills. Urine tract infection Patient presented with nausea, vomiting. Reported history of low-grade fever Labs reviewed; leukocytosis present on admission; improved Chest x-ray personally reviewed; no acute finding CT abdomen pelvis; no acute findings. CT head without contrastno acute finding Urinalysis positive infection Urine culture growing E. coli; pansensitive Blood cultureno growth During the hospitalization, patient was treated with IV ceftriaxone. Patient was discharged home on 7 more days of Augmentin Intractable Hiccups Patient had multiple episode of intractable hiccups; not able to manage by conservative methods. GERD could be the precipitating factor as well Trial of baclofen were successful during the hospitalization. Prescription for Protonix sent for GERD and as needed baclofen for intractable hiccups. Discussed with patient about minimizing the use of baclofen as it can cause drowsiness as well as altered mental status. Patient verbalized understanding. Patient discharged home with home health. Discussed with patient's daughter over the phone regarding the discharge instructions. Please note the above document was generated using voice recognition software. It may contain grammatical, syntax or spelling errors. Any formal questions or concerns about the content, text or information contained within the body of this dictation should be directly addressed to the provider for clarification Total Time Total Time Spent Total Time Spent (In Minutes): 45 Total Time Includes: Examination of the Patient, Discharge Planning, Medication Reconciliation, 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 With Other Providers and Other Discharge Plan Discharge Items Patient Disposition: Home - Self-Care Reason For Visit: N/V, UTI Discharge Diagnosis: Urinary tract infection Activity: Resume your previous activity Non-emergency contact: Primary Care Provider Call non-emergency contact if: you have any medication questions and your symptoms worsen Follow-up/Referrals: Tacho Dorsey MD [Primary Care Provider] - (Date & Time 12/14/2023 11:20 AM Provider Tacho Dorsey MD [facility] ) Diet: Regular Addtl Attending Provider Instructions: You were admitted to the hospital due to urinary tract infection. You are prescribed antibiotics(Augmentin twice daily) to be taken for 7 more days to complete the treatment. An appointment will be set up with your primary care doctor for the next week. Please follow-up with them. If you have continuos hiccups, you can take Baclofen 5mg as needed. Minimized its use as much as possible as it can cause drowsiness. The reason for the hiccups could be due to GERD; you are prescribed Protonix to be taken once daily. Pending Studies at Discharge: No Stand-Alone Forms: My [facility] [employer] [facility], Smoking Cessation Medications and DC Order Prescriptions: New amoxicillin 875 mg tablet 875 mg PO BID 7 Days Qty: 14 0RF baclofen 5 mg tablet 5 mg PO DAILY PRN (Reason: hiccps) Qty: 10 0RF pantoprazole [Protonix] 40 mg tablet,delayed release (DR/EC) 40 mg PO DAILY Qty: 30 0RF Continued lisinopril 20 mg tablet 20 mg PO QAM amlodipine 5 mg tablet 5 mg PO QAM simvastatin 20 mg tablet 20 mg PO HS Eliquis 5 mg tablet 5 mg PO Q12H Qty: 60 0RF metoprolol tartrate 25 mg Tablet 12.5 mg PO BID Qty: 60 0RF tamsulosin 0.4 mg capsule 0.4 mg PO QAM Discharge Orders: Discharge Order (Routine); Ordered 12/07/23 Ordered By: Hemant Alvarado Admission Data Admit Date/Time: 12/04/23 22:56 Attending Provider: Hemant Alvarado Admit Provider: Connor Figueredo Primary Care Provider: Tacho Dorsey Other Providers: Connor Figueredo; [facility],Home Healthcare Other Interventions: Discharge Summary Assessment (RN) Last Done: 12/07/23 10:39
[2023-12-07] MEDS: PANTOprazole 40 MG in SYRINGE 0 ML IV SCH (12:10)
== END 2023-12-07 12:29 | disposition home health service (06) | DRG 690 ==
LOC: ED 18:11 → SUATTDRO 22:56 → EDINP 22:56 → 3E 12-05 04:30

== ENCOUNTER 2024-10-27 10:50 | Inpatient (IN) ==
--- OUTSIDE RECORDS SUMMARY | 2024-10-27 10:56 | External Medical Summary | Summary of Care ---
Author Name Unknown Organization [facility] Address [address] [place] [address] Phone [phone] Care Team Providers Care Meat Packer Name Role Phone Tacho Dorsey MD Primary Care Provider [phone]- [phone] Reason for Visit * Reason Onset Date Comments [facility]: Maintenance 07/11/2024 Encounter Details Date Type Department Care Team (Late st Contact Info) Description 07/11/2024 Telephone [facility] [place] [address] [place] [id number] Elisabet Villalpando, MEE [address], [place] [id number] [facility]: Maintenance Allergies No known active allergiesdocumented as of this encounter (statuses as of 07/11/2024) Medications Medication Sig Dispensed Refills Start Date End Date Status amLODIPine Besylate 5 MG Oral Tablet (Norvasc)Indications:H TN, goal below 140/90 Take 1 Tablet by mouth in the morning. 90 Tablet 3 09/20/2023 Active Lisinopril 20 MG Oral Tablet (Prinivil)Indications: Essential hypertension with goal blood pressure less than 140/90 Take 1 Tablet by mouth in the morning. 90 Tablet 3 09/20/2023 Active Simvastatin 20 MG Oral Tablet (Zocor)Indications:Dys lipidemia, goal LDL below 100 TAKE 1 TABLET BY MOUTH EVERYDAY AT BEDTIME 90 Tablet 3 09/20/2023 Active Pantoprazole Sodium 40 MG Oral Tablet Delayed Release (Protonix) Take 1 Tablet by mouth in the morning. Active Tamsulosin HCl 0.4 MG Oral Capsule (Flomax) Take 1 Capsule by mouth in the morning. 90 Capsule 3 12/22/2023 Active Apixaban 5 MG Oral Tablet (Eliquis)Indications:C onfirmed venous thromboembolism (VTE) Take 1 Tablet by mouth in the morning and 1 Tablet before bedtime. 180 Tablet 3 04/24/2024 Active Metoprolol Tartrate 25 MG Oral Tablet (Lopressor) TAKE 0.5 TABLETS BY MOUTH IN THE MORNING AND 0.5 TABLETS BEFORE BEDTIME. 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 of ant icoagulant therapy 09/04/2008 12/30/2008 Overview: ICD-10 update of inactive term Anticoagulation management encounter 09/04/2008 12/30/2008 ADVANCE DIRECTIVE INFORMATION 08/30/2008 08/30/2017 Overview: Yes, advised to provide copy to PCP Cerebrovascular event, ill-d efined, within last 8 weeks 08/30/2008 01/30/2009 Overview: Modified per CVA protocol #8 HTN, goal below 150/90 01/09 documented as of this encounter (statuses as of 07/11/2024) Immunizations Name Administration Dates Next Due COVID-19 [...] lent, No Preserve, IM 07/20/2016 Seasonal Influenza, Trivalen t, (IIV3), with Preserv, (Fluzone) 07/07/2015,08/24/2014,07/10/2013,06/18,07/06/2011,07/01/2010,07/29/20 09,07/31/2008 08/24/2015 TDAP (age 10 and older)(Boostrix) 01/09/2013 documented as of this encounter Social History Tobacco Use Types Packs/Day Years Used Date Smoking Tobacco: Never Passive Smoke Exposure: Past Smokeless Tobacco: Never Alcohol Use Standard Drinks/Week Comments No 0 (1 standard drink = 0.6 oz pur e alcohol) PHQ-2 Answer Date Recorded PHQ Adult Total Score 0 12/09/2023 Hunger Vital Sign Answer Date Recorded Within the past 12 months, y ou worried that your food would run out before you got the money to buy more. Never true 12/09/19 24 Within the past 12 months, t he food you bought just didn't last and you didn't have money to get more. Never true 12/09/2023 Childcare Answer Date Recorded Do you feel overwhelmed with taking care of a child, family member or friend? No 12/09/2023 Does your family need help f inding childcare? (Household - for ages 0-17 years) Not on file 12/09/2023 Clothing Answer Date Recorded Have you been unable to get clothing when it was really needed? No 12/09/2023 Is your family able to get c lothes or diapers when needed? (Household - for ages 0-17 years) Not on file 12/09/2023 Personal Safety Answer Date Recorded Do you feel unsafe or have concerns for your saf ety? No 12/09/2023 Do you have concerns for you r family's safety? (Household - for ages 0-17 years) Not on file 12/09/2023 Utilities Answer Date Recorded Do you have trouble paying y our heating, water, or electric bill? No 12/09/2023 Is your family able to pay t he heat, water, or electric bill? (Household - for ages 0-17 years) Not on file 12/09/2023 Does your family have access to good internet? (Household - for ages 0-17 years) Not on file 12/09/2023 Employment Status Answer Date Recorded Are you unemployed or without regular income? No 12/09/2023 Does the household have a re gular source of income? (Household - for ages 0-17 years) Not on file 12/09/2023 Social Connections Answer Date Recorded How often do you feel lonely or isolated from th ose around you? Never 12/09/2023 Financial Resource Strain Answer Date R ecorded Do you have any trouble payi ng for your medications, or do you think you might in the future? No 12/09/2023 Does your family have troubl e paying for medicine? (Household - for ages 0-17 years) Not on file 12/09/2023 Transportation Needs Answer Date Record ed READ ONLY Do you have troubl e getting a ride to medical visits or work? Never True 12/09/2023 Does your family have a hard time getting a ride to doctors visits? (Household - for ages 0-17 years) Not on file 12/09/2023 Has lack of transportation k ept you from medical appointments, meetings, work, or from getting things needed for daily living? Check all that apply. (Adult - for ages 18 years and over) Not on file 12/09/2023 Do you (or your family) have trouble finding or paying for a ride (transportation)? (Household - for ages 0-17 years) Not on file 12/09/2023 Housing Stability Answer Date Recorded Do you currently live in a s helter or have no steady place to sleep at night? No 12/09/2023 READ ONLY Do you think you a re at risk of becoming homeless? No 12/09/2023 Does your family worry about paying for your home or becoming homeless? (Household - for ages 0-17 years) Not on file 0 12/09/2023 Are you homeless or worried that you might be in the future? (Adult - for ages 18 years and over) Not on file Are you (or your family) lacey eless or worried that you might be in the future? (Household - for ages 0-17 years) Not on file Food Insecurity Answer Date Recorded Do you need food for this week? No 12/09/2023 Are you able to get enough f ood for your family? (Household - for ages 0-17 years) Not on file 12/09/2023 Does your family need food t his week? (Household - for ages 0-17 years) Not on file 12/09/2023 Do you always have enough fo od for your family? (Household - for ages 0-17 years) Not on file 12/09/2023 Sex and Gender Information Value Date Recorded Sex Assigned at Male 01/10/2019 10:15 AM EDT Gender Identity Male 01/10/2019 10:15 AM EDT Sexual Orientation Straight 05/17/2024 10 :14 AM EDT Job Start Date Occupation Industry Not on file Not on file Not on file documented as of this encounter Miscellaneous Notes * Telephone Encounter - Elisabet Villalpando OSA - 07/11/2024 8:13 AM EDT Per request to rs new ret telemed visit with AP. Scheduled for 10/03. With Sarah Smith and Anusha Beauchamp. documented in this encounter Plan of Treatment Upcoming Encounters Date Type Department Care Team (Late st Contact Info) Description 10/03/2024 10:30 AM EST [facility] Visit [facility] [address] [facility] [place] [address] Binh Smith PA-C [address] [facility] [place] [address] Jordana Beauchamp, Community Health Manager Primary [address] [place] [address] 05/17/2025 10:40 AM EDT Office Visit [facility] [address] [place] [address] Tacho Dorsey MD [address] [place], [place] [phone] Health Maintenance Due Date Last Done Comments Adult Wellness Visit 10/03/2020 10/03/2019 DTap/Tdap Vaccines (2 - Td or Tdap) 01/09/2023 01/09/2013 CKD PHOS USE SMARTSET 14349 09/06/202308/18, 07/28/2021, 07/31/2020, Additional history exists COVID-19 Vaccine ( season) 2024 01/16/2021, 12/26/2020 Influenza Vaccine (FLU shot) (#1) 2024 09/20/2023, 09/06/2022, 07/28/2021, Additional history exists Depression Screening 12/09/2024 12/09/2023 Albumin/Creatinine Ratio 05/17/2025 05/17/2024, 08/18 CKD HGB USE SMARTSET 81322 05/17/202505/17, 05/17/2024, 07/19/2023, Additional history exists Pneumococcal Vaccine: 65+ Years Completed 08/25/2015, 07/31/2008 HPV (Gardasil) Vaccine Aged Out No lo nger eligible based on patient's age to complete this topic Hepatitis B Vaccine Aged Out No longe r eligible based on patient's age to complete this topic MENINGOCOCCAL (MENACTRA/MENVEO) Aged Out No longer eligible based on patient's age to complete this topic Zoster Vaccines Discontinued documented as of this encounter Medical Devices Not on filedocumented as of this encounter Care Teams Meat Packer Relationship Specialty Start Date End Date Tacho Dorsey MD [address] [place] [address] PCP - General 09/16/08 documented as of this encounter
--- OUTSIDE RECORDS SUMMARY | 2024-10-27 10:56 | External Medical Summary | Summary of Care ---
Author Name Unknown Organization [facility] Address [address] [facility] [facility] [address] Phone [phone] Care Team Providers Care Therapy Manager Name Role Phone Mahogany Hernandez MD Primary Care Provider +1- [phone] Reason for Visit * Reason Comments eRx-Medication Refill Encounter Details Date Type Department Care Team (Late st Contact Info) Description 08/02/2024 Refill [facility] [address] [place] [address] Mahogany Hernandez MD [address] [place] [address] Allergies No known active allergiesdocumented as of this encounter (statuses as of 08/03/2024) Medications Medication Sig Dispensed Refills Start Date End Date Status amLODIPine Besylate 5 MG Oral Tablet (Norvasc)Indications [...] 12/22/2023 Active Apixaban 5 MG Oral Tablet (Eliquis)Indications :Confirmed venous thromboembolism (VTE) Take 1 Tablet by mouth in the morning and 1 Tablet before bedtime. 180 Tablet 3 04/24/2024 Active Metoprolol Tartrate 25 MG Oral Tablet (Lopressor) TAKE 0.5 TABLETS BY MOUTH IN THE MORNING AND 0.5 TABLETS BEFORE BEDTIME. 90 Tablet 1 08/03/2024 Active Metoprolol Tartrate 25 MG Oral Tablet (Lopressor) TAKE 0.5 TABLETS BY MOUTH IN THE MORNING AND 0.5 TABLETS BEFORE BEDTIME. 90 Tablet 05/02/2024 08/03/20 24 Discontinued documented as of this encounter (statuses as of 08/03/2024) Active Problems Problem Noted Date Diagnosed Date [...] as of this encounter (statuses as of 08/03/2024) Resolved Problems Problem Noted Date Diagnosed Date [...] infarction 8 08/30/2017 Venous 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/2017 prison current use of ant icoagulant therapy 09/04/2008 12/30/2008 Overview: ICD-10 update of inactive term Anticoagulation management encounter 09/04/2008 12/30/2008 ADVANCE DIRECTIVE INFORMATION 08/30/2008 08/30/2017 Overview: Yes, advised to provide copy to PCP Cerebrovascular event, ill-d efined, within last 8 weeks 08/30/2008 01/30/2009 Overview: Modified per CVA protocol #8 HTN, goal below 150/90 01/09 documented as of this encounter (statuses as of 08/03/2024) Immunizations Name Administration Dates Next Due COVID-19 mRNA, LNP-s, No Pre serve, 2-Dose Series (Pfizer) 01/16/2021,12/26/2020 Pneumococcal Conjugate Vacc, 13 Valent (Prevnar) 08/25/2015 Pneumococcal Polysaccharide PPV23 (Pneumovax) 07/31/2008 Season Influenza, Quad, PF, Adjuvanted, 65+ Yrs, IM (FLUAD) 07/28/2020 Seasonal Influenza Vac., MDV , IM, 0.5 mL (Fluzone) 07/07/2015,08/24/2014,07/10/2013,06/18,07/06/2011,07/01/2010,07/29/20,07/31/2008 08/24/2015 Seasonal Influenza, PF, 6 M & above, IM , (FluLaval or Fluzone) 07/16/2019,07/12/2018,08/30/2017 Seasonal Influenza, Quadriva lent Hd (Fluzone Hd) 09/20/2023,09/06/2022,07/28/2021 Seasonal Influenza, Quadriva lent, No Preserve, IM 07/20/2016 TDAP (age 10 and older)(Boostrix) 01/09/2013 documented [...] encounter Miscellaneous Notes * Telephone Encounter - Imtiaz Sanches RPh - 08/03/2024 9:14 AM EDTSigned Prescriptions: Disp Refills Metoprolol Tartrate 25 MG Oral Tablet (Lop*90 Tab*1 Sig: TAKE 0.5 TABLETS BY MOUTH IN THE MORNING AND 0.5 TABLETS BEFORE BEDTIME.Authorizing Provider: MAHOGANY HERNANDEZ User: IMTIAZ SANCHES documented in this encounter Plan of Treatment Upcoming Encounters Date Type Department Care Team (Late st Contact Info) Description 10/03/2024 10:30 AM EST Home Visit [facility] [address] [place] [address] Binh Smith PA-C [address] [place] [address] Jordana Beauchamp, Community Health Electrical Hardware Engineer [address] [place] [address] 05/17/2025 10:40 AM EDT Office Visit [facility] [address] [facility] [phone] Mahogany Hernandez MD [address] [place] [address] Health Maintenance Due Date Last Done Comments Adult Wellness Visit 10/03/2020 10/03/2019 DTap/Tdap Vaccines (2 - Td or Tdap) 01/09/2023 01/09/2013 CKD PHOS USE SMARTSET 03620 09/06/202308/18, 07/28/2021, 07/31/2020, Additional history exists COVID-19 Vaccine ( season) 2024 01/16/2021, 12/26/2020 Influenza Vaccine (FLU shot) (#1) 2024 09/20/2023, 09/06/2022, 07/28/2021, Additional history exists Depression Screening 12/09/2024 12/09/2023 Albumin/Creatinine Ratio 05/17/2025 05/17/2024, 08/18 CKD HGB USE SMARTSET 73702 05/17/202505/17, 05/17/2024, 07/19/2023, Additional history exists Pneumococcal [...] filedocumented as of this encounter Care Teams Therapy Manager Relationship Specialty Start Date End Date Mahogany Hernandez [facility] [address] [facility] [address] PCP - General 09/16/08 documented as of this encounter
--- OUTSIDE RECORDS SUMMARY | 2024-10-27 10:56 | External Medical Summary | Summary of Care ---
Author Name Unknown Organization [facility] Address [address] [place] [facility] [place] [address] Phone [phone] Care Team Providers Care Microbiology Analyst Name Role Phone Tacho Dorsey MD Primary Care Provider +1- [phone] Reason for Visit * Reason Comments Outpatient Testing Encounter Details Date Type Department Care Team (Late st Contact Info) Description 05/17/2024 11:00 AM EDT Laboratory Laboratory, [place] [address] [place] [address] [place] [address], [place] [phone] Urinary incontinence, unspecified type; Chronic kidney disease, stage 3a (HCC); HTN, goal below 140/90; 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 90 Tablet 05/02/2024 Active Lgselgy-Npatvm-Aictv Pertussis 5-2.5-18.5 LF-MCG/0.5 Suspension Prefilled Syringe (Boostrix) Inject 0.5 mL into a large muscle once for 1 dose. As directed 0.5 mL 05/17/2024 05/17/2024 Active documented as of this encounter (statuses as of 05/17/2024) Active Problems Problem Noted Date Diagnosed Date [...] as of this encounter (statuses as of 05/17/2024) Resolved Problems Problem Noted Date Diagnosed Date [...] infarction 8 08/30/2017 Venous 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/2017 [facility] current use of ant icoagulant therapy 09/04/2008 12/30/2008 Overview: ICD-10 update of inactive term Anticoagulation management encounter 09/04/2008 12/30/2008 ADVANCE DIRECTIVE INFORMATION 08/30/2008 08/30/2017 Overview: Yes, advised to provide copy to PCP Cerebrovascular event, ill-d efined, within last 8 weeks 08/30/2008 01/30/2009 Overview: Modified per CVA protocol #8 HTN, goal below 150/90 01/09 documented as of this encounter (statuses as of 05/17/2024) Immunizations Name Administration Dates Next Due COVID-19 mRNA, LNP-s, No Pre serve, 2-Dose Series (HOLLR) 01/16/2021,12/26/2020 Pneumococcal Conjugate Vacc, 13 Valent (Prevnar) [...] Care Team (Late st Contact Info) Description 05/17/2025 10:40 AM EDT Office Visit [facility] [address] [place] [address] Tacho Dorsey MD [address], [place] [phone] Pending Results Name Type Priority Associated Diagnoses Date /Time URINALYSIS, REFLEX TO MICROSCOPIC Lab Routine Urinary incontinence, unspecified type 05/17/2024 10:44 AM EDT CULTURE, URINE, QUANTITATIVE Lab Routine Urinary incontinence, unspecified type 05/17/2024 10:44 AM EDT ALBUMIN / CREATININE RATIO, URINE Lab Routine Chronic kidney disease, stage 3a (HCC) 05/17/2024 10:44 AM EDT CBC WITH WBC DIFFERENTIAL Lab Routine Chronic kidney disease, stage 3a (HCC) HTN, goal below 140/90 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, unspecified hemiplegia type (HCC) 05/17/2024 10:46 AM EDT COMPREHENSIVE METABOLIC PANEL Lab Routine Chronic kidney disease, stage 3a (HCC) HTN, goal below 140/90 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, unspecified hemiplegia type (HCC) 05/17/2024 10:46 AM EDT CBC Lab Routine Chronic kidney disease, stage 3a (HCC) HTN, goal below 140/90 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, unspecified hemiplegia type (HCC) 05/17/2024 10:46 AM EDT DIFFERENTIAL, AUTOMATED Lab Routine Chronic kidney disease, stage 3a (HCC) HTN, goal below 140/90 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, unspecified hemiplegia type (HCC) 05/17/2024 10:46 AM EDT Health Maintenance Due Date Last Done Comments DTaP,Tdap,and Td Vaccines (2 - Td or Tdap) 01/09/2023 01/09/2013 COVID-19 Vaccine (3 - season) 2023 01/16/2021, 12/26/2020 Albumin/Creatinine Ratio 09/06/2023 09/06/2022 CKD PHOS USE SMARTSET 23804 09/06/202308/18, 07/28/2021, 07/31/2020, Additional history exists Influenza Vaccine (FLU shot) (#1) 2024 09/20/2023, 09/06/2022, 07/28/2021, Additional history exists CKD HGB USE SMARTSET 22777 07/19/202407/19, 07/12/2023, 07/05/2023, Additional history exists Depression Screening 12/09/2024 12/09/2023 Pneumococcal Vaccine: 65+ Years Completed 08/25/2015, 07/31/2008 [...] encounter Visit Diagnoses Diagnosis Urinary incontinence, unspecified type Chronic kidney disease, stage 3a (HCC) HTN, goal below 140/90 Unspecified essential hypertension 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
--- OUTSIDE RECORDS SUMMARY | 2024-10-27 10:56 | External Medical Summary | Summary of Care ---
Author Name Unknown Organization [facility] Address [address] [place] [address] Phone [phone] Care Team Providers Care Franchise Specialist Name Role Phone Tacho Dorsey MD Primary Care Provider +1- [phone] Reason for Visit * Reason Onset Date Comments Appointment 10/02/2024 Encounter Details Date Type Department Care Team (Late st Contact Info) Description 10/02/2024 Telephone [facility] [place] [address] [place], [place] [address] Barry Hunter, MEE [address] [place], [place] [phone] Appointment Allergies No known active allergiesdocumented as of this encounter (statuses as of 10/02/2024) Medications amLODIPine Besylate 5 MG Oral Tablet (Norvasc)Indication s:HTN, goal below 140/90 Take 1 Tablet by mouth in the morning. 90 Tablet 3 3 Active Lisinopril 20 MG Oral Tablet (Prinivil)Indicatio ns:Essential hypertension with goal blood pressure less than 140/90 Take 1 Tablet by mouth in the morning. 90 Tablet 3 3 Active Pantoprazole Sodium 40 MG Oral Tablet Delayed Release (Protonix) Take 1 Tablet by mouth in the morning. Active Tamsulosin HCl 0.4 MG Oral Capsule (Flomax) Take 1 Capsule by mouth in the morning. 90 Capsule 3 4 Active Apixaban 5 MG Oral Tablet (Eliquis)Indication s:Confirmed venous thromboembolism (VTE) Take 1 Tablet by mouth in the morning and 1 Tablet before bedtime. 180 Tablet 3 4 Active Metoprolol Tartrate 25 MG Oral Tablet (Lopressor) TAKE 0.5 TABLETS BY MOUTH IN THE MORNING AND 0.5 TABLETS BEFORE BEDTIME. 90 Tablet 1 4 Active Simvastatin 20 MG Oral Tablet (Zocor)Indications: Dyslipidemia, goal LDL below 100 TAKE 1 TABLET BY MOUTH EVERYDAY AT BEDTIME 90 Tablet 2 4 Active documented as of this encounter (statuses as of 10/02/2024) Active Problems Problem Noted Date Diagnosed Date [...] 07/06/2011 Cerebrovascular disease, arteriosclerotic, post- stroke 01/28/2009 Overview (01/30/2009): Modified per CVA protocol #8 documented as of this encounter (statuses as of 10/02/2024) Resolved Problems Problem Noted Date Diagnosed Date Resolved Date Transient ischemic attack 05/19/2021 Overview (02/17/2022): Not current TIA-Hx on PL Benign hypertension [...] use of ant icoagulant therapy 09/04/2008 12/30/2008 Overview (07/18/2017): ICD-10 update of inactive term Anticoagulation management encounter 09/04/2008 12/30/2008 ADVANCE DIRECTIVE INFORMATION 08/30/2008 08/30/2017 Overview (08/30/2008): Yes, advised to provide copy to PCP Cerebrovascular event, ill-d efined, within last 8 weeks 08/30/2008 01/30/2009 Overview (01/30/2009): Modified per CVA protocol #8 HTN, goal below 150/90 01/09 documented as of this encounter (statuses as of 10/02/2024) Immunizations Name Administration Dates Next Due COVID-19 mRNA, LNP-s, No Pre serve, 2-Dose Series ([place]) 01/16/2021,12/26/2020 Pneumococcal Conjugate Vacc, 13 Valent (Prevnar) [...] Assigned at Male 01/10/2019 10:15 AM EDT Legal Sex Male 7:12 AM EST Gender Identity Male 01/10/2019 10:15 AM EDT Sexual Orientation Straight 05/17/2024 10 :14 AM EDT documented as of this encounter Miscellaneous Notes * Telephone Encounter - Barry Hunter OSA - 10/02/2024 11:24 AM EST [facility] tomorrows new telemed, she said daughter will call back in to r/s documented in this encounter Plan of Treatment Upcoming Encounters Date Type Department Care Team (Late st Contact Info) Description 05/17/2025 10:40 AM EDT Office Visit [facility], [place] [address] [address] Tacho Dorsey MD [address] [place] [address] Health Maintenance Due Date Last Done Comments Adult Wellness Visit 10/03/2020 10/03/2019 DTap/Tdap Vaccines (2 - Td or Tdap) 01/09/2023 01/09/2013 CKD PHOS USE SMARTSET 14795 09/06/2023 11/10/2021, 07/28/2021, 07/31/2020, Additional history exists COVID-19 Vaccine ( season) 2024 01/16/2021, 12/26/2020 Influenza Vaccine (FLU shot) (#1) 2024 09/20/2023, 09/06/2022, 07/28/2021, Additional history exists Depression Screening 12/09/2024 12/09/2023 Albumin/Creatinine Ratio 05/17/2025 05/17/2024, 08/18 CKD HGB USE SMARTSET 12721 05/17/202505/17, 05/17/2024, 07/19/2023, Additional history exists Pneumococcal [...] filedocumented as of this encounter Care Teams Franchise Specialist Relationship Specialty Start Date End Date Tacho Dorsey MD [address] [place] [address] PCP - General 09/16/08 documented as of this encounter
--- OUTSIDE RECORDS SUMMARY | 2024-10-27 10:56 | External Medical Summary | Summary of Care ---
Author Name Unknown Organization [facility] Address [address] [place] [facility] [place] [address] Phone [phone] Care Team Providers Care Circulation Supervisor Name Role Phone Tacho Dorsey MD Primary Care Provider +1- [phone] Reason for Visit * Reason Onset Date Comments [facility]: Maintenance 06/20/2024 Encounter Details Date Type Department Care Team (Late st Contact Info) Description 06/20/2024 Telephone [facility] [address] [facility] [place] [address] Deborah Avila RN [address] [facility] [place] [address] [facility]: Maintenance Allergies No known active allergiesdocumented as of this encounter (statuses as of 06/20/2024) Medications Medication Sig Dispensed Refills Start Date [...] as of this encounter (statuses as of 06/20/2024) Active Problems Problem Noted Date Diagnosed Date [...] as of this encounter (statuses as of 06/20/2024) Resolved Problems Problem Noted Date Diagnosed Date [...] infarction 8 08/30/2017 Venous 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/2017 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 current use of ant icoagulant therapy 09/04/2008 12/30/2008 Overview: ICD-10 update of inactive term Anticoagulation management encounter 09/04/2008 12/30/2008 ADVANCE DIRECTIVE INFORMATION 08/30/2008 08/30/2017 Overview: Yes, advised to provide copy to PCP Cerebrovascular event, ill-d efined, within last 8 weeks 08/30/2008 01/30/2009 Overview: Modified per CVA protocol #8 HTN, goal below 150/90 01/09 documented as of this encounter (statuses as of 06/20/2024) Immunizations Name Administration Dates Next Due COVID-19 [...] Influenza, Trivalen t, (IIV3), with Preserv, (Fluzone) 07/07/2015,08/24/2014,07/10/2013,06/18,07/06/2011,07/01/2010,07/29/20,07/31/2008 08/24/2015 TDAP (age 10 and older)(Boostrix) [...] encounter Miscellaneous Notes * Telephone Encounter - Deborah Avila RN - 06/20/2024 9:18 AM EDT Phone call from daughter requesting to cancel HV today for new enrollment. She states patient is not ready and would like to further discuss services with him. Daughter states she will call [facility] back after speaking with patient to reschedule. She agreed to leave appt on with [facility] provider on 07/11 at this time. RN appt. cancelled per request. Message sent to RNCM to make aware of above. Deborah TELLESN, RN [facility] ladler Navigator documented in this encounter Plan of Treatment Upcoming Encounters Date Type Department Care Team (Late st Contact Info) Description 07/11/2024 10:30 AM EDT Home Visit [facility] [address] [facility] [place] [address] Binh Smith PA-C [address] [place] [phone] Nika Aguirre, Community Health Cane Furniture Maker [address] [place] [address] 05/17/2025 10:40 AM EDT Office Visit [address] [phone] Tacho Dorsey MD [address] [address] Health Maintenance Due Date Last Done Comments Adult Wellness Visit 10/03/2020 10/03/2019 DTap/Tdap Vaccines (2 - Td or Tdap) 01/09/2023 01/09/2013 CKD PHOS USE SMARTSET 99766 09/06/202308/18, 07/28/2021, 07/31/2020, Additional history exists COVID-19 Vaccine ( season) 2024 01/16/2021, 12/26/2020 Influenza Vaccine (FLU shot) (#1) 2024 09/20/2023, 09/06/2022, 07/28/2021, Additional history exists Depression Screening 12/09/2024 12/09/2023 Albumin/Creatinine Ratio 05/17/2025 05/17/2024, 08/18 CKD HGB USE SMARTSET 29285 05/17/202505/17, 05/17/2024, 07/19/2023, Additional history exists Pneumococcal [...] filedocumented as of this encounter Care Teams Circulation Supervisor Relationship Specialty Start Date End Date Tacho Dorsey MD [address] [address] PCP - General 09/16/08 documented as of this encounter
--- OUTSIDE RECORDS SUMMARY | 2024-10-27 10:56 | External Medical Summary | Summary of Care ---
Author Name Unknown Organization [facility] Address [address] [facility] [place] [address] Phone [phone] Care Team Providers Care Corporate Consultant Name Role Phone Tacho Dorsey MD Primary Care Provider +1- [phone] Encounter Details Date Type Department Care Team (Late st Contact Info) Description 10/27/2024 Orders Only PATIENT PORTAL DO NOT DELETE THIS DEPT USED BY [place] [id number] Allergies No known active allergiesdocumented as of this encounter (statuses as of 10/27/2024) Medications amLODIPine Besylate 5 MG Oral Tablet [...] AT BEDTIME 90 Tablet 2 4 Active Cephalexin 500 MG Oral Capsule (Keflex)Indications :Dysuria Take 1 Capsule by mouth in the morning and 1 Capsule before bedtime. Do all this for 7 days. 14 Capsule 5 10/31/19 25 Active documented as of this encounter (statuses as of 10/27/2024) Active Problems Problem Noted Date Diagnosed Date [...] as of this encounter (statuses as of 10/27/2024) Resolved Problems Problem Noted Date Diagnosed Date [...] infarction 8 08/30/2017 Venous 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/2017 [facility] current use of ant icoagulant therapy 09/04/2008 [...] as of this encounter (statuses as of 10/27/2024) Immunizations Name Administration Dates Next Due COVID-19 mRNA, LNP-s, No Pre serve, 2-Dose Series (Pfizer) 01/16/2021,12/26/2020 Pneumococcal Conjugate Vacc, 13 Valent (Prevnar) 08/25/2015 Pneumococcal Polysaccharide PPV23 (Pneumovax) 07/31/2008 Season Influenza, Quad, PF, Adjuvanted, 65+ Yrs, IM (FLUAD) 07/28/2020 Seasonal Influenza Vac., MDV , IM, 0.5 mL (Fluzone) 07/07/2015,08/24/2014,07/10/2013,06/18,07/06/2011,07/01/2010,07/29/20 09,07/31/2008 08/24/2015 Seasonal Influenza, PF, 6 M & [...] AM EDT documented as of this encounter Plan of Treatment Upcoming Encounters Date Type Department Care Team (Late st Contact Info) Description 05/17/2025 10:40 AM EDT [facility] [address] [phone] Tacho Dorsey MD [address] [facility] [place] [address] Health Maintenance Due Date Last Done Comments Adult Wellness Visit 10/03/2020 10/03/2019 DTap/Tdap Vaccines (2 - Td or Tdap) 01/09/2023 01/09/2013 CKD PHOS USE SMARTSET 53082 09/06/202308/18, 07/28/2021, 07/31/2020, Additional history exists COVID-19 Vaccine ( season) 2024 01/16/2021, 12/26/2020 Influenza Vaccine (FLU shot) (#1) 2024 09/20/2023, 09/06/2022, 07/28/2021, Additional history exists Depression Screening 12/09/2024 12/09/2023 Albumin/Creatinine Ratio 05/17/2025 05/17/2024, 08/18 CKD HGB USE SMARTSET 66916 05/17/202505/17, 05/17/2024, 07/19/2023, Additional history exists Pneumococcal Vaccine: 50+ Years Completed 08/25/2015, 07/31/2008 HPV (Gardasil) Vaccine [...] filedocumented as of this encounter Care Teams Corporate Consultant Relationship Specialty Start Date End Date Tacho Dorsey MD PCP - General 09/16/08 documented as of this encounter
--- OUTSIDE RECORDS SUMMARY | 2024-10-27 10:56 | External Medical Summary | Summary of Care ---
Author Name Unknown Organization [facility] Address [address] [place] [address] Phone [phone] Care Team Providers Care Desktop Support Manager Name Role Phone Tacho Dorsey MD Primary Care Provider +1- [phone] Reason for Visit * Reason Onset Date Comments [facility]: Maintenance 06/11/2024 Encounter Details Date Type Department Care Team (Late st Contact Info) Description 06/11/2024 Telephone [facility] [place] [address] [place] [address] [place] [phone] Services, Scheduling [address] [place] [address] [facility]: Maintenance Allergies No known active allergiesdocumented as of this encounter (statuses as of 06/11/2024) Medications Medication Sig Dispensed Refills Start Date [...] as of this encounter (statuses as of 06/11/2024) Active Problems Problem Noted Date Diagnosed Date [...] as of this encounter (statuses as of 06/11/2024) Resolved Problems Problem Noted Date Diagnosed Date [...] infarction 8 08/30/2017 Venous 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/2017 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 current use of ant icoagulant therapy 09/04/2008 12/30/2008 Overview: ICD-10 update of inactive term Anticoagulation management encounter 09/04/2008 12/30/2008 ADVANCE DIRECTIVE INFORMATION 08/30/2008 08/30/2017 Overview: Yes, advised to provide copy to PCP Cerebrovascular event, ill-d efined, within last 8 weeks 08/30/2008 01/30/2009 Overview: Modified per CVA protocol #8 HTN, goal below 150/90 01/09 documented as of this encounter (statuses as of 06/11/2024) Immunizations Name Administration Dates Next Due COVID-19 [...] Telephone Encounter - Elisabet Villalpando OSA - 06/11/2024 10:53 AM EDT Incoming call from pts daughter to rs appt scheduled for today (06/11). Rs pt to see nurse next week(06/20 at 12:30). Pts daughter confirmed new date and time worked. documented in this encounter Plan of Treatment Upcoming Encounters Date Type Department Care Team (Late st Contact Info) Description 06/20/2024 12:30 PM EDT [facility] Visit [facility] [address] [address] Sera Francis, RN [address] [address] 07/11/2024 10:30 AM EDT [facility] [address] [address] Binh Smith PA-C [facility] [place] [address] Nika Aguirre, Community Health Campus Manager [address] [place] [address] 05/17/2025 10:40 AM EDT Office Visit [facility] [address] [place] [phone] Tacho Dorsey MD [address] [place] [address] Health Maintenance Due Date Last Done Comments Adult Wellness Visit 10/03/2020 10/03/2019 DTaP,Tdap,and Td Vaccines (2 - Td or Tdap) 01/09/2023 01/09/2013 COVID-19 Vaccine (3 - 2022-24 season) 2023 01/16/2021, 12/26/2020 CKD PHOS USE SMARTSET 33373 09/06/202308/18, 07/28/2021, 07/31/2020, Additional history exists Influenza Vaccine (FLU shot) (#1) 2024 09/20/2023, 09/06/2022, 07/28/2021, Additional history exists Depression Screening 12/09/2024 12/09/2023 Albumin/Creatinine Ratio 05/17/2025 05/17/2024, 08/18 CKD HGB USE SMARTSET 47705 05/17/202505/17, 05/17/2024, 07/19/2023, Additional history exists Pneumococcal [...] filedocumented as of this encounter Care Teams Desktop Support Manager Relationship Specialty Start Date End Date Tacho Dorsey MD [address] [place] [address] PCP - General 09/16/08 documented as of this encounter
--- OUTSIDE RECORDS SUMMARY | 2024-10-27 10:56 | External Medical Summary | Summary of Care ---
Author Name Unknown Organization [facility] Address [address] [facility] [place] [address] Phone [phone] Care Team Providers Care Dietary Server Name Role Phone Tacho Dorsey MD Primary Care Provider +1- [phone] Reason for Visit * Reason Comments eRx-Medication Refill Encounter Details Date Type Department Care Team (Late st Contact Info) Description 07/03/2024 Refill [facility] [address] [place] [address] Tacho Dorsey MD [address] [place] [address] Essential hypertension with goal blood pressure less than 140/90; HTN, goal below 140/90 Allergies No known active allergiesdocumented as of this encounter (statuses as of 07/04/2024) Medications Medication Sig Dispensed Refills Start Date [...] as of this encounter (statuses as of 07/04/2024) Active Problems Problem Noted Date Diagnosed Date [...] as of this encounter (statuses as of 07/04/2024) Resolved Problems Problem Noted Date Diagnosed Date [...] infarction 8 08/30/2017 Venous 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/2017 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 current use of ant icoagulant therapy 09/04/2008 12/30/2008 Overview: ICD-10 update of inactive term Anticoagulation management encounter 09/04/2008 12/30/2008 ADVANCE DIRECTIVE INFORMATION 08/30/2008 08/30/2017 Overview: Yes, advised to provide copy to PCP Cerebrovascular event, ill-d efined, within last 8 weeks 08/30/2008 01/30/2009 Overview: Modified per CVA protocol #8 HTN, goal below 150/90 01/09 documented as of this encounter (statuses as of 07/04/2024) Immunizations Name Administration Dates Next Due COVID-19 mRNA, LNP-s, No Pre serve, 2-Dose Series ([employer]) 01/16/2021,12/26/2020 Pneumococcal Conjugate Vacc, 13 Valent (Prevnar) [...] encounter Miscellaneous Notes * Telephone Encounter - Jennifer Dennis RPh - 07/04/2024 5:24 PM EDT Refused Prescriptions: Disp Refills Lisinopril 20 MG Oral Tablet (Prinivil) 90 Tab*3 Sig: TAKE 1 TABLET BY MOUTH EVERY DAY IN THE MORNINGRefused By: JENNIFER DENNIS for Refusal: Too soon amLODIPine Besylate 5 MG Oral Tablet (Norv*90 Tab*3 Sig: TAKE 1 TABLET BY MOUTH EVERY DAY IN THE MORNINGRefused By: JENNIFER DENNIS for Refusal: Too soon documented in this encounter Plan of Treatment Upcoming Encounters Date Type Department Care Team (Late st Contact Info) Description 07/11/2024 10:30 AM EDT Home Visit [facility] [address] [address] Binh Smith PA-C [address] [address] Nika Aguirre, Community Health Tow Boat Captain [address] [place] [address] 05/17/2025 10:40 AM EDT [facility] [place] [address] [facility] [address] Tacho Dorsey MD [address] [facility] [place] [address] Health Maintenance Due Date Last Done Comments Adult Wellness Visit 10/03/2020 10/03/2019 DTap/Tdap Vaccines (2 - Td or Tdap) 01/09/2023 01/09/2013 CKD PHOS USE SMARTSET 46914 09/06/202308/18, 07/28/2021, 07/31/2020, Additional history exists COVID-19 Vaccine ( season) 2024 01/16/2021, 12/26/2020 Influenza Vaccine (FLU shot) (#1) 2024 09/20/2023, 09/06/2022, 07/28/2021, Additional history exists Depression Screening 12/09/2024 12/09/2023 Albumin/Creatinine Ratio 05/17/2025 05/17/2024, 08/18 CKD HGB USE SMARTSET 48828 05/17/202505/17, 05/17/2024, 07/19/2023, Additional history exists Pneumococcal [...] as of this encounter Visit Diagnoses Diagnosis Essential hypertension with goal blood pressure less than 140/90 HTN, goal below 140/90 Unspecified essential hypertension documented in this encounter Care Teams Dietary Server Relationship Specialty Start Date End Date Tacho Dorsey MD [address] [facility] [place] [address] PCP - General 09/16/08 documented as of this encounter
--- OUTSIDE RECORDS SUMMARY | 2024-10-27 10:56 | External Medical Summary | Summary of Care ---
Author Name Unknown Organization [facility] Address [address] [place] [facility] [place] [address] Phone [phone] Care Team Providers Care Head Of Store Operations Name Role Phone Tacho Dorsey MD Primary Care Provider +1- [phone] Reason for Visit * Reason Comments eRx-Medication Refill Encounter Details Date Type Department Care Team (Late st Contact Info) Description 09/27/[address] [address] Tacho Dorsey MD [address] [place], [place] [phone] Dyslipidemia, goal LDL below 100 Allergies No known active allergiesdocumented as of this encounter (statuses as of 09/28/2024) Medications amLODIPine Besylate 5 MG Oral Tablet (Norvasc)Indicatio ns:HTN, goal below 140/90 Take 1 Tablet by mouth in the morning. 90 Tablet 3 09/20/20 23 Active Lisinopril 20 MG Oral Tablet (Prinivil)Indicati ons:Essential hypertension with goal blood pressure less than 140/90 Take 1 Tablet by mouth in the morning. 90 Tablet 3 09/20/20 23 Active Pantoprazole Sodium 40 MG Oral Tablet Delayed Release (Protonix) Take 1 Tablet by mouth in the morning. Active Tamsulosin HCl 0.4 MG Oral Capsule (Flomax) Take 1 Capsule by mouth in the morning. 90 Capsule 3 12/22/19 24 Active Apixaban 5 MG Oral Tablet (Eliquis)Indicatio ns:Confirmed venous thromboembolism (VTE) Take 1 Tablet by mouth in the morning and 1 Tablet before bedtime. 180 Tablet 3 04/24/20 24 Active Metoprolol Tartrate 25 MG Oral Tablet (Lopressor) TAKE 0.5 TABLETS BY MOUTH IN THE MORNING AND 0.5 TABLETS BEFORE BEDTIME. 90 Tablet 1 08/03/20 24 Active Simvastatin 20 MG Oral Tablet (Zocor)Indications :Dyslipidemia, goal LDL below 100 TAKE 1 TABLET BY MOUTH EVERYDAY AT BEDTIME 90 Tablet 2 09/28/20 24 Active Simvastatin 20 MG Oral Tablet (Zocor)Indications :Dyslipidemia, goal LDL below 100 TAKE 1 TABLET BY MOUTH EVERYDAY AT BEDTIME 90 Tablet 3 09/20/20 23 024 Discontinued documented as of this encounter (statuses as of 09/28/2024) Active Problems Problem Noted Date Diagnosed Date [...] as of this encounter (statuses as of 09/28/2024) Resolved Problems Problem Noted Date Diagnosed Date [...] infarction 8 08/30/2017 Venous 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/2017 rn long term care current use of ant [...] as of this encounter (statuses as of 09/28/2024) Immunizations Name Administration Dates Next Due COVID-19 mRNA, LNP-s, No Pre serve, 2-Dose Series (LemonCrate) 01/16/2021,12/26/2020 Pneumococcal Conjugate Vacc, 13 Valent (Prevnar) [...] encounter Miscellaneous Notes * Telephone Encounter - Phil Still [facility] - 09/28/2024 6:27 AM ESTSigned Prescriptions: Disp Refills Simvastatin 20 MG Oral Tablet (Zocor) 90 Tab*2 Sig: TAKE 1 TABLET BY MOUTH EVERYDAY AT BEDTIMEAuthorizing Provider: Mikayla GUTIÉRREZ User: PHIL STILL----- documented in this encounter Plan of Treatment Upcoming Encounters Date Type Department Care Team (Late st Contact Info) Description 10/03/2024 10:30 AM EST Home Visit [facility] [address] [address] Binh Smith PA-C [address] [address] Nika Aguirre, Community Health Hydropress Operator [address] [place] [address] 05/17/2025 10:40 AM EDT [facility] [place] [facility] [address] [facility] [place] [phone] Tacho Dorsey MD [address] [facility] [place] [address] Health Maintenance Due Date Last Done Comments Adult Wellness Visit 10/03/2020 10/03/2019 DTap/Tdap Vaccines (2 - Td or Tdap) 01/09/2023 01/09/2013 CKD PHOS USE SMARTSET 22911 09/06/202308/18, 07/28/2021, 07/31/2020, Additional history exists COVID-19 Vaccine ( season) 2024 01/16/2021, 12/26/2020 Influenza Vaccine (FLU shot) (#1) 2024 09/20/2023, 09/06/2022, 07/28/2021, Additional history exists Depression Screening 12/09/2024 12/09/2023 Albumin/Creatinine Ratio 05/17/2025 05/17/2024, 08/18 CKD HGB USE SMARTSET 18925 05/17/202505/17, 05/17/2024, 07/19/2023, Additional history exists Pneumococcal [...] as of this encounter Visit Diagnoses Diagnosis Dyslipidemia, goal LDL below 100 Other and unspecified hyperlipidemia documented in this encounter Care Teams Head Of Store Operations Relationship Specialty Start Date End Date Tacho Dorsey MD [address] [address] PCP - General 09/16/08 documented as of this encounter
--- OUTSIDE RECORDS SUMMARY | 2024-10-27 10:56 | External Medical Summary | Summary of Care ---
Author Name Unknown Organization [facility] Address [address] [place] [address] Phone [phone] Care Team Providers Care Emergency Response Technician Name Role Phone Tacho Dorsey MD Primary Care Provider +1- [phone] Reason for Visit * Reason Onset Date Comments Appointment 10/02/2024 Encounter Details Date Type Department Care Team (Late st Contact Info) Description 10/02/2024 Telephone [facility], [place] [address] [place], [place] [phone] Barry Hunter, MEE [address] [place], [place] [phone] Appointment Allergies No known active allergiesdocumented as [...] infarction 8 08/30/2017 Venous 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/2017 halfway current use of ant icoagulant therapy 09/04/2008 [...] mRNA, LNP-s, No Pre serve, 2-Dose Series (Bestowed) 01/16/2021,12/26/2020 Pneumococcal Conjugate Vacc, 13 Valent (Prevnar) [...] Description 05/17/2025 10:40 AM EDT Office Visit [facility] Liu [address] [phone] Tacho Dorsey MD [address] [address] Health Maintenance Due Date Last Done Comments Adult Wellness Visit 10/03/2020 10/03/2019 DTap/Tdap Vaccines (2 - Td or Tdap) 01/09/2023 01/09/2013 CKD PHOS USE SMARTSET 93377 09/06/202308/18, 07/28/2021, 07/31/2020, Additional history exists COVID-19 Vaccine ( season) 2024 01/16/2021, 12/26/2020 Influenza Vaccine (FLU shot) (#1) 2024 09/20/2023, 09/06/2022, 07/28/2021, Additional history exists Depression Screening 12/09/2024 12/09/2023 Albumin/Creatinine Ratio 05/17/2025 05/17/2024, 08/18 CKD HGB USE SMARTSET 73845 05/17/202505/17, 05/17/2024, 07/19/2023, Additional history exists Pneumococcal [...] filedocumented as of this encounter Care Teams Emergency Response Technician Relationship Specialty Start Date End Date Tacho Dorsey MD [address] [place] [address] PCP - General 09/16/08 documented as of this encounter
--- OUTSIDE RECORDS SUMMARY | 2024-10-27 10:56 | External Medical Summary | Summary of Care ---
Author Name Unknown Organization [facility] Address [address] [place] [address] Phone [phone] Care Team Providers Care Wheel Alignment Technician Name Role Phone Tacho Dorsey MD Primary Care Provider +1- [phone] Reason for Visit * Reason Onset Date Comments [facility]: Screening 06/05/2024 Encounter Details Date Type Department Care Team (Late st Contact Info) Description 06/05/2024 Telephone [facility], [facility] [address] [facility] [address] [place] [address] Amanda Hodgson LPN [address] [place] [address] [facility]: Screening Allergies No known active allergiesdocumented as of this encounter (statuses as of 06/05/2024) Medications Medication Sig Dispensed Refills Start Date [...] as of this encounter (statuses as of 06/05/2024) Active Problems Problem Noted Date Diagnosed Date [...] as of this encounter (statuses as of 06/05/2024) Resolved Problems Problem Noted Date Diagnosed Date [...] infarction 8 08/30/2017 Venous 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/2017 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 icoagulant therapy 09/04/2008 12/30/2008 Overview: ICD-10 update of inactive term Anticoagulation management encounter 09/04/2008 12/30/2008 ADVANCE DIRECTIVE INFORMATION 08/30/2008 08/30/2017 Overview: Yes, advised to provide copy to PCP Cerebrovascular event, ill-d efined, 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 A review of this chart was completed and: Trung meets criteria for [facility]. Jump to Initiation Referring care team was notified via : [employer] communication documented in this encounter Plan of Treatment Upcoming Encounters Date Type Department Care Team (Late st Contact Info) Description 05/17/2025 10:40 AM EDT Office Visit [facility] [address] [place] [address] Tacho Dorsey MD [address] [place] [address] Health Maintenance Due Date Last Done Comments Adult Wellness Visit 10/03/2020 10/03/2019 DTaP,Tdap,and Td Vaccines (2 - Td or Tdap) 01/09/2023 01/09/2013 COVID-19 Vaccine (3 - 2022-24 season) 2023 01/16/2021, 12/26/2020 CKD PHOS USE SMARTSET 60939 09/06/2023 11/10/2021, 07/28/2021, 07/31/2020, Additional history exists Influenza Vaccine (FLU shot) (#1) 2024 09/20/2023, 09/06/2022, 07/28/2021, Additional history exists Depression Screening 12/09/2024 12/09/2023 Albumin/Creatinine Ratio 05/17/2025 05/17/2024, 08/18 CKD HGB USE SMARTSET 68719 05/17/202505/17, 05/17/2024, 07/19/2023, Additional history exists Pneumococcal [...] filedocumented as of this encounter Care Teams Wheel Alignment Technician Relationship Specialty Start Date End Date Tacho Dorsey MD [address] [place] [address] PCP - General 09/16/08 documented as of this encounter
--- OUTSIDE RECORDS SUMMARY | 2024-10-27 10:56 | External Medical Summary | Summary of Care ---
Author Name Unknown Organization [facility] Address [address] [place] [address] Phone [phone] Care Team Providers Care Macaroni Press Operator Name Role Phone Tacho Dorsey MD Primary Care Provider +1- [phone] Reason for Visit * Reason Onset Date Comments [facility]: Engagement 10/25/2024 Encounter Details Date Type Department Care Team (Late st Contact Info) Description 10/25/2024 Telephone [facility], [address] [address] Sherry Doll, MEE [address] [place] [address] [facility]: Engagement Allergies No known active allergiesdocumented as of this encounter (statuses as of 10/25/2024) Medications amLODIPine Besylate 5 MG Oral Tablet [...] as of this encounter (statuses as of 10/25/2024) Active Problems Problem Noted Date Diagnosed Date [...] as of this encounter (statuses as of 10/25/2024) Resolved Problems Problem Noted Date Diagnosed Date [...] infarction 8 08/30/2017 Venous 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/2017 retirement current use of ant icoagulant therapy 09/04/2008 [...] as of this encounter (statuses as of 10/25/2024) Immunizations Name Administration Dates Next Due COVID-19 [...] 18 years and over) Not on file 02/23/202 4 Are you (or your family) lacey eless [...] encounter Miscellaneous Notes * Telephone Encounter - Sherry Doll OSA - 10/25/2024 2:52 PM EST Call to daughter to set up enrollment appt with [employer], daughter said they are going with another company on Tuesday. If the company does not work out, she will call us back to enroll. documented in this encounter Plan of Treatment Upcoming Encounters Date Type Department Care Team (Late st Contact Info) Description 05/17/2025 10:40 AM EDT [facility] [address] [phone] Tacho Dorsey MD [address] [address] Health Maintenance Due Date Last Done Comments Adult Wellness Visit 10/03/2020 10/03/2019 DTap/Tdap Vaccines (2 - Td or Tdap) 01/09/2023 01/09/2013 CKD PHOS USE SMARTSET 63159 09/06/202308/18, 07/28/2021, 07/31/2020, Additional history exists COVID-19 Vaccine ( season) 2024 01/16/2021, 12/26/2020 Influenza Vaccine (FLU shot) (#1) 2024 09/20/2023, 09/06/2022, 07/28/2021, Additional history exists Depression Screening 12/09/2024 12/09/2023 Albumin/Creatinine Ratio 05/17/2025 05/17/2024, 08/18 CKD HGB USE SMARTSET 21034 05/17/202505/17, 05/17/2024, 07/19/2023, Additional history exists Pneumococcal [...] filedocumented as of this encounter Care Teams Macaroni Press Operator Relationship Specialty Start Date End Date Tacho Dorsey MD PCP - General 09/16/08 documented as of this encounter
--- OUTSIDE RECORDS SUMMARY | 2024-10-27 10:56 | External Medical Summary | Summary of Care ---
Author Name Unknown Organization [facility] Address [address] [place] [address] Phone [phone] Care Team Providers Care Manager Title Name Role Phone Tacho Dorsey MD Primary Care Provider +1- [phone] Reason for Visit * Reason Onset Date Comments [facility]: Enrollment 06/05/2024 Encounter Details Date Type Department Care Team (Late st Contact Info) Description 06/05/2024 Telephone [facility], [place] [address] [place] [phone] Services, Scheduling [address] [place] [address] [facility]: Enrollment Allergies No known active allergiesdocumented as of [...] infarction 8 08/30/2017 Venous 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/2017 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 09/04/2008 [...] Telephone Encounter - Elisabet Villalpando OSA - 06/05/2024 4:01 PM EDT [facility] Engagement Attempt Engagement: Engagement Attempt 1: Contacted - Agreed to home-based services Scheduled appointment information: scheduled pt to see nurse on 06/11 and AP on 07/11 Home Information: No data was found Advance Care Planning (ACP): No data was found Has Living Will or Advance Directive: No data was found Anticipated Sub-Program: Focused Care Management (3-9 months) Confirmation of Sub-Program Type (by care steam tender): No data was found Handoff Information: Current care team notified via: No data was found Current telemonitoring equipment: No data was found documented in this encounter Plan of Treatment Upcoming Encounters Date Type Department Care Team (Late st Contact Info) Description 06/11/2024 2:00 PM EDT Home Visit [facility], [facility] [address] [address] Sera Francis RN [address] [address] 07/11/2024 10:30 AM EDT Home Visit [facility], [facility] [address] [address] Binh Smith PA-C [address] [address] Nika Aguirre, Community Health Art Psychotherapist Or Therapist [address] [facility] [place] [address] 05/17/2025 10:40 AM EDT Office Visit [facility], [place] [address] [place] [phone] Tacho Dorsey MD [address] [place] [address] Health Maintenance Due Date Last Done Comments Adult Wellness Visit 10/03/2020 10/03/2019 DTaP,Tdap,and Td Vaccines (2 - Td or Tdap) 01/09/2023 01/09/2013 COVID-19 Vaccine (3 - 2022-24 season) 2023 01/16/2021, 12/26/2020 CKD PHOS USE SMARTSET 22763 09/06/202308/18, 07/28/2021, 07/31/2020, Additional history exists Influenza Vaccine (FLU shot) (#1) 2024 09/20/2023, 09/06/2022, 07/28/2021, Additional history exists Depression Screening 12/09/2024 12/09/2023 Albumin/Creatinine Ratio 05/17/2025 05/17/2024, 08/18 CKD HGB USE SMARTSET 85069 05/17/202505/17, 05/17/2024, 07/19/2023, Additional history exists Pneumococcal [...] filedocumented as of this encounter Care Teams Manager Title Relationship Specialty Start Date End Date Tacho Dorsey MD [address] [place], [place] [phone] PCP - General 09/16/08 documented as of this encounter
--- OUTSIDE RECORDS SUMMARY | 2024-10-27 10:56 | External Medical Summary | Summary of Care ---
Author Name Unknown Organization [facility] Address [address] [facility] [address] [address] Phone [phone] Care Team Providers Care Urologic Surgeon Name Role Phone Tacho Dorsey MD Primary Care Provider +1- [phone] Reason for Visit * Reason Onset Date Comments [facility]: Maintenance 10/22/2024 Encounter Details Date Type Department Care Team (Late st Contact Info) Description 10/22/2024 Telephone [facility], [facility] [address] [place] [address] Sera Francis RN [address] [place] [address] [facility]: Maintenance Allergies No known active allergiesdocumented as of this encounter (statuses as of 10/22/2024) Medications amLODIPine Besylate 5 MG Oral Tablet [...] as of this encounter (statuses as of 10/22/2024) Active Problems Problem Noted Date Diagnosed Date [...] as of this encounter (statuses as of 10/22/2024) Resolved Problems Problem Noted Date Diagnosed Date [...] 8 08/30/2017 Venous 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 documented in this encounter Plan of Treatment Upcoming Encounters Date Type Department Care Team (Late st Contact Info) Description 05/17/2025 10:40 AM EDT [facility] [address] [phone] Tacho Dorsey MD [address] [address] Health Maintenance Due Date Last Done Comments Adult Wellness Visit 10/03/2020 10/03/2019 DTap/Tdap Vaccines (2 - Td or Tdap) 01/09/2023 01/09/2013 CKD PHOS USE SMARTSET 43062 09/06/2023 11/2 10/2021, 07/28/2021, 07/31/2020, Additional history exists COVID-19 Vaccine ( season) 2024 01/16/2021, 12/26/2020 Influenza Vaccine (FLU shot) (#1) 2024 09/20/2023, 09/06/2022, 07/28/2021, Additional history exists Depression Screening 12/09/2024 12/09/2023 Albumin/Creatinine Ratio 05/17/2025 05/17/2024, 08/18 CKD HGB USE SMARTSET 40782 05/17/202505/17, 05/17/2024, 07/19/2023, Additional history exists Pneumococcal [...] filedocumented as of this encounter Care Teams Urologic Surgeon Relationship Specialty Start Date End Date Tacho Dorsey MD PCP - General 09/16/08 documented as of this encounter
--- OUTSIDE RECORDS SUMMARY | 2024-10-27 10:57 | External Medical Summary | Summary of Care ---
Author Name Unknown Organization [facility] Address [address] [address] Phone [phone] Care Team Providers Care Merchandise Appraiser Name Role Phone Tacho Dorsey MD Primary Care Provider +1- [phone] Reason for Visit * Reason Comments Re-Check Pt is here today for a 6 month follow up Encounter Details Date Type Department Care Team (Latest Contact Info) Description 05/17/2024 10:20 AM EDT Office Visit [facility] [address] [place] [address] Manuel Holly MD [address] [place] [address] Chronic kidney disease, stage 3a (HCC)*; HTN, goal below 140/90; 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, unspecified hemiplegia type (HCC); 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); Foot drop, right foot; Cerebrovascular disease, arteriosclerotic, post-stroke; Benign hypertension with stage 3a chronic kidney disease (HCC); Atrial fibrillation, unspecified type (HCC); Dyslipidemia, goal LDL below 100; Anticoagulated; Leg swelling; Hemiplegia and hemiparesis following unspecified cerebrovascular disease affecting right dominant side (HCC) Allergies No known active allergiesdocumented as of this encounter (statuses as of 05/17/2024) Medications Medication Sig Dispensed Refills Start Date End Date Status amLODIPine Besylate 5 MG Oral Tablet (Norvasc)Indications: HTN, goal below 140/90 Take 1 Tablet by mouth in the morning. 90 Tablet 3 09/20/2023 Active Lisinopril 20 MG Oral Tablet (Prinivil)Indications :Essential hypertension with goal blood pressure less than 140/90 Take 1 Tablet by mouth in the morning. 90 Tablet 3 09/20/2023 Active Simvastatin 20 MG Oral Tablet (Zocor)Indications:Dy slipidemia, [...] 12/22/2023 Active Apixaban 5 MG Oral Tablet (Eliquis)Indications: Confirmed venous thromboembolism (VTE) Take 1 Tablet by mouth in the morning and 1 Tablet before bedtime. 180 Tablet 3 04/24/2024 Active Metoprolol Tartrate 25 MG Oral Tablet (Lopressor) TAKE 0.5 TABLETS BY MOUTH IN THE MORNING AND 0.5 TABLETS BEFORE BEDTIME. 90 Tablet 05/02/2024 Active Zkksbqs-Cdzbtu-Krkug Pertussis 5-2.5-18.5 LF-MCG/0.5 Suspension Prefilled Syringe (Boostrix) Inject 0.5 mL into a large muscle once for 1 dose. As directed 0.5 mL 05/17/2024 4 Active Amoxicillin 875 MG Oral Tablet Take 1 Tablet by mouth in the morning and 1 Tablet before bedtime. 4 Discontinue d(Patient preference/ discontinua tion) Baclofen 5 MG Oral Tablet (Lioresal) Take 1 Tablet by mouth daily as needed (as needed for hiccups). 4 Discontinue d(Patient preference/ discontinua tion) documented as of this encounter (statuses as [...] infarction 8 08/30/2017 Venous 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/2017 alf current use of ant icoagulant therapy 09/04/2008 [...] Passive Smoke Exposure: Past Smokeless Tobacco: Never Tobacco Cessation:Counseling Given: Not [...] No 12/09/2023 Does the household have a [facility] source of income? (Household - for ages [...] Sign Reading Time Taken Comments Blood Pressure 128/62 05/17/2024 10:12 AM EDT Pulse 75 05/17/2024 10:12 AM EDT Temperature 36.7 C (98 F) 05/17/2024 10:12 AM EDT Respiratory Rate 18 05/17/2024 10:12 AM EDT Oxygen Saturation 96% 05/17/2024 10:12 AM EDT Inhaled Oxygen Concentration - - Weight 73 kg (161 lb) 05/17/2024 10:12 AM EDT Height - - Body Mass Index 21.84 06/21/2023 1:31 PM EDT documented in this encounter Progress Notes * Manuel Holly MD - 05/17/2024 10:22 AM EDT Subjective Trung Coles is a 84 year old male. Chief Complaint Patient presents with Re-Check Pt is here today for a 6 month follow up HPI: Here for routine check up Stroke hx, rt sided hemiplegia, rt foot drop , walker use No recent fall Comes with his daughter Was on plavix which caused plt dysfx Afib hx, taking metoprolol, eliquis Hypertension , CKD, HL , CVA Taking medication as prescribed, see med list. No medication side effects noted. Advised patient tokeep healthy life style, regular exercise with good diet, issa. low sodium diet. And also check BP at home too. Denies associated chest discomfort, chest heaviness, chest pressure, chest tightness, edema, palpitations and shortness of breath. Noticed rt ankle swelling, occ, advised to use compression stockings PMH: Patient Active Problem List Diagnosis Cerebrovascular disease, arteriosclerotic, post-stroke Dyslipidemia, goal LDL below 100 History of pulmonary embolism HTN, goal below 140/90 Foot drop, right foot Hemiplegia, unspecified affecting right dominant side (HCC) Benign hypertension with stage 3a chronic kidney disease (HCC) Chronic kidney disease, stage 3a (HCC) History of cerebrovascular accident 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 Anticoagulated 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) Atrial fibrillation (HCC) History of amputation of left great toe (HCC) Hemiplegia and hemiparesis following unspecified cerebrovascular disease affecting right dominant side (HCC) Current Outpatient Medications Medication Sig Dispense Refill amLODIPine Besylate 5 MG Oral Tablet (Norvasc) Take 1 Tablet by mouth in the morning. 90 Tablet 3 Lisinopril 20 MG Oral Tablet (Prinivil) Take 1 Tablet by mouth in the morning. 90 Tablet 3 Simvastatin 20 MG Oral Tablet (Zocor) TAKE 1 TABLET BY MOUTH EVERYDAY AT BEDTIME 90 Tablet 3 Pantoprazole Sodium 40 MG Oral Tablet Delayed Release (Protonix) Take 1 Tablet by mouth in the morning. Tamsulosin HCl 0.4 MG Oral Capsule (Flomax) Take 1 Capsule by mouth in the morning. 90 Capsule 3 Apixaban 5 MG Oral Tablet (Eliquis) Take 1 Tablet by mouth in the morning and 1 Tablet before bedtime. 180 Tablet 3 Metoprolol Tartrate 25 MG Oral Tablet (Lopressor) TAKE 0.5 TABLETS BY MOUTH IN THE MORNING AND 0.5 TABLETS BEFORE BEDTIME. 90 Tablet 0 Nlvmmkw-Njmlpf-Ijkdl Pertussis 5-2.5-18.5 LF-MCG/0.5 Suspension Prefilled Syringe (Boostrix) Inject0.5 mL into a large muscle once for 1 dose. As directed 0.5 mL 0 No current facility-administered medications for this visit. Past Medical History: Diagnosis Date Cerebrovascular event, [...] of patient's allergies indicates: No Known Allergies No family history on file. Family Status Relation Status Mo Fa Sis Bro Social History Socioeconomic History Marital status: Spouse name: Not on file Number of children: Not on file Years of education: Not on file Highest education level: Not on file Occupational History Not on file Tobacco Use Smoking status: Never Passive exposure: Past Smokeless tobacco: Never Vaping Use Vaping status: Never Used Substance and Sexual Activity Alcohol use: No Drug use: No Sexual activity: Not on file Other Topics Concern Not on file Social History Narrative Not on file Social Determinants of Health Financial Resource Strain: Low Risk (12/09/2023) Financial Resource Strain Do you have any trouble paying for your medications, or do you think you might in the future? (Adult - for ages 18 years and over): No Does your family have trouble paying for medicine? (Household - for ages 0-17 years): Not on file Food Insecurity: No Food Insecurity (12/09/2023) Food Insecurity Do you need food for this week? (Adult - for ages 18 years and over): No Are you able to get enough food for your family? (Household - for ages 0-17 years): Not on file Does your family need food this week? (Household - for ages 0-17 years): Not on file Do you always have enough food for your family? (Household - for ages 0-17 years): Not on file Transportation Needs: No Transportation Needs (12/09/2023) Transportation Needs Do you have trouble getting a ride to medical visits or work? (Adult - for ages 18 years and over):Never True Does your family have a hard time getting a ride to doctors visits? (Household - for ages 0-17 years): Not on file Has lack of transportation kept you from medical appointments, meetings, work, or from getting things needed for daily living? Check all that apply. (Adult - for ages 18 years and over): Not on file Do you (or your family) have trouble finding or paying for a ride (transportation)? (Household - for ages 0-17 years): Not on file Social Connections: Socially Integrated (12/09/2023) Social Connections How often do you feel lonely or isolated from those around you? (Adult - for ages 18 years and over): Never Housing Stability: Low Risk (12/09/2023) Housing Stability Do you currently live in a prison or have no steady place to sleep at night? (Adult - for ages 18 years and over): No Do you think you are at risk of becoming homeless? (Adult - for ages 18 years and over): No Does your family worry about paying for your home or becoming homeless? (Household - for ages 0-17 years): Not on file Are you homeless or worried that you might be in the future? (Adult - for ages 18 years and over): Not on file Are you (or your family) homeless or worried that you might be in the future? (Household - for ages0-17 years): Not on file Review of Systems Constitutional: Positive for fatigue. Negative for activity change, appetite change, chills, diaphoresis, fever and unexpected weight change. HENT: Negative for hearing loss. Eyes: Negative for visual disturbance. Respiratory: Negative for cough, chest tightness, shortness of breath and wheezing. Cardiovascular: Positive for leg swelling (occ rt leg ankle area). Negative for chest pain and palpitations. Gastrointestinal: Negative for abdominal distention, abdominal pain, nausea and vomiting. Endocrine: Negative. Musculoskeletal: Positive for gait problem (rt foot drop , weakness, ankle brace). Neurological: Positive for weakness (rt sided , foot drop) and numbness. Psychiatric/Behavioral: Negative for agitation, behavioral problems, dysphoric mood and sleep disturbance. Objective BP 128/62 | Pulse 75 | Temp 36.7 C (98 F) (Tympanic) | Resp 18 | Wt 73 kg (161 lb) | SpO2 96% |BMI 21.84 kg/m | BSA 1.93 m Physical Exam Constitutional: General: He is not in acute distress. Appearance: Normal appearance. He is not ill-appearing, toxic-appearing or diaphoretic. HENT: Head: Normocephalic and atraumatic. Nose: Nose normal. Eyes: Extraocular Movements: Extraocular movements intact. Cardiovascular: Rate and Rhythm: Normal rate and regular rhythm. Pulses: Normal pulses. Heart sounds: Normal heart sounds. Pulmonary: Effort: Pulmonary effort is normal. No respiratory distress. Breath sounds: Normal breath sounds. No stridor. No wheezing, rhonchi or rales. Chest: Chest wall: No tenderness. Musculoskeletal: General: No tenderness. Right lower leg: No edema. Left lower leg: No edema. Neurological: Mental Status: He is alert and oriented to person, place, and time. Cranial Nerves: Cranial nerve deficit present. Sensory: Sensory deficit (rt sided) present. Motor: Weakness (rt sided) present. Gait: Gait abnormal. Psychiatric: Mood and Affect: Mood normal. Behavior: Behavior normal. ASSESSMENT/PLAN: Chronic kidney disease, stage 3a (HCC) (Primary) - ALBUMIN / CREATININE RATIO, URINE; Future; Expected date: 05/17/2024 - CBC WITH WBC DIFFERENTIAL; Future; Expected date: 05/17/2024 - COMPREHENSIVE METABOLIC PANEL; Future; Expected date: 05/17/2024 HTN, goal below 140/90 - CBC WITH WBC DIFFERENTIAL; Future; Expected date: 05/17/2024 - COMPREHENSIVE METABOLIC PANEL; Future; Expected date: 05/17/2024 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, unspecified hemiplegia type (HCC) - CBC WITH WBC DIFFERENTIAL; Future; Expected date: 05/17/2024 - COMPREHENSIVE METABOLIC PANEL; Future; Expected date: 05/17/2024 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 As directed Follow Up: Return in about 1 year (around 05/17/2025) for Clinic Visit. | For: Clinic Visit | Check-out note: With PCP Labs today And DME order Cont meds Fall precaution Manuel Holly MD * Becky Sahni LPN - 05/17/2024 10:14 AM EDT Urine albumin/creatinine ratio ordered today. Provider aware. documented in this encounter Nursing Notes * Becky Sahni LPN - 05/17/2024 10:08 AM EDT Chief Complaint Patient presents with Re-Check Pt is here today for a 6 month follow up documented in this encounter Plan of Treatment Upcoming Encounters Date Type Department Care Team (Late st Contact Info) Description 05/17/2024 11:00 AM EDT Laboratory [facility], [place] [address] [place] [id number] [place] [address], [place] [id number] Urinary incontinence, unspecified type; Chronic kidney disease, stage 3a (HCC); HTN, goal below 140/90; 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, unspecified hemiplegia type (HCC) 05/17/2025 10:40 AM EDT Office Visit [facility] [address] [place] [address] Tacho Dorsey MD [address] [place] [address] Pending Results Name Type Priority Associated Diagnoses Date /Time ALBUMIN / CREATININE RATIO, URINE Lab Routine [...] hemiplegia type (HCC) 05/17/2024 10:46 AM EDT Scheduled Orders Name Type Priority Associated Diagnoses Orde r Schedule ALBUMIN / CREATININE RATIO, URINE Lab Routine Chronic kidney disease, stage 3a (HCC) Expected: 05/17/2024, Expires: 05/17/2025 CBC WITH WBC DIFFERENTIAL Lab Routine Chronic kidney disease, stage 3a (HCC) HTN, goal below 140/90 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, unspecified hemiplegia type (HCC) Expected: 05/17/2024 (Approximate), Expires: 05/17/2025 COMPREHENSIVE METABOLIC PANEL Lab Routine Chronic kidney disease, stage 3a (HCC) HTN, goal below 140/90 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, unspecified hemiplegia type (HCC) Expected: 05/17/2024 (Approximate), Expires: 05/17/2025 Health Maintenance Due Date Last Done Comments DTaP,Tdap,and Td Vaccines (2 - Td or Tdap) 01/09/2023 01/09/2013 COVID-19 Vaccine (3 - season) 2023 01/16/2021, 12/26/2020 Albumin/Creatinine Ratio 09/06/2023 09/06/2022 CKD PHOS USE SMARTSET 15106 09/06/202308/18, 07/28/2021, 07/31/2020, Additional history exists Influenza Vaccine (FLU shot) (#1) 2024 09/20/2023, 09/06/2022, 07/28/2021, Additional history exists CKD HGB USE SMARTSET 70191 07/19/202407/19, 07/12/2023, 07/05/2023, Additional history exists Depression [...] as of this encounter Visit Diagnoses Diagnosis Chronic kidney disease, stage 3a (HCC)- Primary HTN, goal below 140/90 Unspecified essential hypertension 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, unspecified hemiplegia type (HCC) 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) Foot drop, right foot Cerebrovascular disease, arteriosclerotic, post-stroke Cerebral atherosclerosis Benign hypertension with stage 3a chronic kidney disease (HCC) Atrial fibrillation, unspecified type (HCC) Dyslipidemia, goal LDL below 100 Other and unspecified hyperlipidemia Anticoagulated Long-term (current) use of anticoagulants Leg swelling Swelling of limb Hemiplegia and hemiparesis following unspecified cerebrovascular disease affecting right dominant side (HCC) Urinary incontinence, unspecified type Chronic kidney disease, stage 3a (HCC) HTN, goal below 140/90 Unspecified essential hypertension 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, unspecified hemiplegia type (HCC) documented in this encounter Care Teams Merchandise Appraiser Relationship Specialty Start Date End Date Tacho Dorsey MD [address] [place] [address] PCP - General 09/16/08 documented as of this encounter"
--- OUTSIDE RECORDS SUMMARY | 2024-10-27 10:57 | External Medical Summary ---
Author Name Unknown Address Unknown Organization [id number]:[facility]ATORY [facility] [address] [place] [address] Laboratory Report Ordering Provider Test Date Status BROCK PAREDES 05/17/2024 10:46:26 Final Observation Date Value Abnormality Reference (Units ) Status BUN 05/17/2024 10:46:26 22 Above high normal 6-20 (mg/dL) Final Creatinine 05/17/2024 10:46:26 1.2 0.6-1.2 (mg/dL) Final Glomerular filtration rate/1.73 sq M.predicted [Volume Rate/Area] in Serum, Plasma or Blood by Creatinine-based formula (CKD-EPI) 05/17/2024 10:46:26 59 Below low normal >=60 (mL/min) Final eGFR is calculated based on the CKD-EPI 2020 equation. Sodium 05/17/2024 10:46:26 144 135-146 (m mol/L) Final Potassium 05/17/2024 10:46:26 4.5 3.5-5.1 (m mol/L) Final Cl 05/17/2024 10:46:26 106 98-107 (mm ol/L) Final CO2 05/17/2024 10:46:26 26 22-32 (mmo l/L) Final Anion gap 05/17/2024 10:46:26 12 7-15 (mmol /L) Final Glucose 05/17/2024 10:46:26 109 70-120 (mg /dL) Final Albumin 05/17/2024 10:46:26 4.1 3.8-5.0 (g /dL) Final AST (Aspartate aminotransferase) 05/17/2024 10:46:26 20 10-50 (U/L) Fin al Alk Phos 05/17/2024 10:46:26 102 35-130 (U/ L) Final Bilirubin, Total 05/17/2024 10:46:26 0.5 <=1 .2 (mg/dL) Final Calcium 05/17/2024 10:46:26 9.4 8.4-10.2 ( mg/dL) Final Protein 05/17/2024 10:46:26 6.5 6.0-8.3 (g /dL) Final ALT (Alanine aminotransferase) 05/17/2024 10:46:26 9 Below low normal 10-50 (U/L) Final Performing Location LABORATORY [facility] - [facility] [address] [facility] [address]
--- OUTSIDE RECORDS SUMMARY | 2024-10-27 10:57 | External Medical Summary | Summary of Care ---
Author Name Unknown Organization [facility] Address [address] [facility] [place] [address] Phone [phone] Care Team Providers Care Marine Engine Driver Name Role Phone Mahogany Hernandez MD Primary Care Provider +1- [phone] Reason for Visit * Reason Comments eRx-Medication Refill Encounter Details Date Type Department Care Team (Late st Contact Info) Description 05/02/2024 Refill [facility] [address] [place] [address] Manuel Holly MD [address] [place] [address] Allergies No known active allergiesdocumented as of this encounter (statuses as of 05/02/2024) Medications Medication Sig Dispensed Refills Start Date [...] AT BEDTIME 90 Tablet 3 09/20/2023 Active Amoxicillin 875 MG Oral Tablet Take 1 Tablet by mouth in the morning and 1 Tablet before bedtime. Active Baclofen 5 MG Oral Tablet (Lioresal) Take 1 Tablet by mouth daily as needed (as needed for hiccups). Active Pantoprazole Sodium 40 MG Oral Tablet [...] TABLETS BEFORE BEDTIME. 90 Tablet 05/02/2024 Active Metoprolol Tartrate 25 MG Oral Tablet (Lopressor) Take 0.5 Tablets by mouth in the morning and 0.5 Tablets before bedtime. 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 Zero refills given until upcoming OV 05/17/2024. * Telephone Encounter - Susannah Torres RPh - 05/02/2024 6:05 PM EDTSigned Prescriptions: Disp Refills Metoprolol Tartrate 25 MG Oral Tablet (Lop*90 Tab*0 Sig: TAKE 0.5 TABLETS BY MOUTH IN THE MORNING AND 0.5 TABLETS BEFORE BEDTIME. Authorizing Provider: MAHOGANY HERNANDEZ Ordering User: SUSANNAH TORRES documented in this encounter Plan of Treatment Upcoming Encounters Date Type Department Care Team (Late st Contact Info) Description 05/17/2024 10:20 AM EDT Office Visit [place] [address] [facility] [place] [address] Manuel Holly MD [address] [place] [facility] [address] Health Maintenance Due Date Last Done Comments Zoster Vaccines (1 of 2) 1988 DTaP,Tdap,and Td Vaccines (2 - Td or Tdap) 01/09/2023 01/09/2013 COVID-19 Vaccine (3 - season) 2023 01/16/2021, 12/26/2020 Albumin/Creatinine Ratio 09/06/2023 09/06/2022 CKD PHOS USE SMARTSET 24797 09/06/202308/18, 07/28/2021, 07/31/2020, Additional history exists Influenza Vaccine (FLU shot) (#1) 2024 09/20/2023, 09/06/2022, 07/28/2021, Additional history exists CKD HGB USE SMARTSET 33757 07/19/202407/19, 07/12/2023, 07/05/2023, Additional history exists Depression [...] filedocumented as of this encounter Care Teams Marine Engine Driver Relationship Specialty Start Date End Date Mahogany Hernandez MD [address] [facility] [place] [address] PCP - General 09/16/08 documented as of this encounter
--- OUTSIDE RECORDS SUMMARY | 2024-10-27 10:57 | External Medical Summary ---
Author Name Unknown Address Unknown Organization [id number]:[facility]ORY [facility] [place] [address] [place] [address] Laboratory Report Ordering Provider Test Date Status DAVID VIDES 05/17/2024 10:44:14 Final Observation Date Value Abnormality Reference (Units ) Status Bacteria identified in Specimen by Culture 05/17/2024 10:44:14 [id number]^STAPHY LOCOCCUS AUREUS Abnormal Final 10,000 to 100,000 colonies/m L Staphylococcus aureus Performing Location [facility] [place] [address] [place] [address] Ordering Provider Test Date Status DAVID VIDES 05/17/2024 10:44:14 Final Observation Date Value Abnormality Reference (Units ) Status Nitrofurantoin susceptibility 05/17/2024 10:44:14 <=16 Susceptible Final Oxacillinsusceptibility 05/17/2024 10:44:14 0.5 Susceptible Final Tetracyclinesusceptibility 05/17/2024 10:44:14 <=1 Susceptible Final TMP-SMZ susceptibility 05/17/2024 10:44:14 <=10 Susceptible Final Vancomycinsusceptibility 05/17/2024 10:44:14 1 Susceptible Final Test: Culture, Urine, Quanti tative
Specimen Source: Urine, Clean Catch
Specimen Type: Urine
Specimen Date: 05/17/2024 1044
Result Date: 05/19/2024 1027
Result Status: Final result
Abnormal: Yes
Resulting Lab: [facility]
[address]
[place] [address]

CULTURE

10,000 to 100,000 colonies/mL Staphylococcus aureus (Abnormal)

SUSCEPTIBILITY

Staphylococcus
aureus
METHOD MICROBROTH
DILUTIONS

NITROFURANTOIN <=16 Susceptible
OXACILLIN 0.5 Susceptible
TETRACYCLINE <=1 Susceptible
TRIMETH/SULFAMETHOXAZOLE <=10 Susceptible
VANCOMYCIN 1 Susceptible

null Performing Location [facility]ORY [facility] - [address] [facility] [address]
--- OUTSIDE RECORDS SUMMARY | 2024-10-27 10:57 | External Medical Summary ---
Author Name Unknown Address Unknown Organization [id number]:[facility] [place] - [address] [facility] [place] [address] Laboratory Report Ordering Provider Test Date Status BROCK PAREDES 05/17/2024 10:46:26 Final Observation Date Value Abnormality Reference (Units ) Status SYNC LEUKOCYTES IN BLOOD BY AUTOMATED COUNT 05/17/2024 10:46:26 8.67 4.00-10.80 (K/uL) Final Segs 05/17/2024 10:46:26 77.2 Above high normal 40.0-75.0 (%) Final Lymphs % 05/17/2024 10:46:26 13.4 Below low normal 18.0-42.0 (%) Final Monos 05/17/2024 10:46:26 7.0 1.0-11.0 (%) Final Eosinophils 05/17/2024 10:46:26 1.3 0.0-6.0 (%) Final Basos 05/17/2024 10:46:26 0.6 0.0-2.0 (%) Final Immature Granulocyte, Percent 05/17/2024 10:46:26 0.5 0.0-2.0 (%) Final Absolute Segs 05/17/2024 10:46:26 6.70 1.80-7.70 (K/uL) Final Lymphs, absolute 05/17/2024 10:46:26 1.16 1.00-4.80 (K/ul) Final Monos, Abs 05/17/2024 10:46:26 0.61 0.00-1.10 (K/uL) Final Eos, Abs 05/17/2024 10:46:26 0.11 0.00-0.70 (K/uL) Final Basos, Abs 05/17/2024 10:46:26 0.05 0.00-0.20 (K/uL) Final Immature Granulocytes, Number 05/17/2024 10:46:26 0.04 0.00-0.20 (K/uL) Final Performing Location [facility] [place] - [address] [facility] [id number]
--- OUTSIDE RECORDS SUMMARY | 2024-10-27 10:57 | External Medical Summary ---
Author Name Unknown Address Unknown Organization K01:[facility] [place] [facility] [address] [place] [address] Laboratory Report Ordering Provider Test Date Status BROCK PAREDES 05/17/2024 10:46:26 Final Observation Date Value Abnormality Reference (Units ) Status WBC, Total 05/17/2024 10:46:26 8.67 4.00-10.80 (K/uL) Final RBC 05/17/2024 10:46:26 4.47 4.50-5.25 (M/uL) Final Hemoglobin 05/17/2024 10:46:26 13.9 Below low normal 14.0-16.8 (g/dL) Final HCT 05/17/2024 10:46:26 42.0 40.0-48.4 (%) Final MCV 05/17/2024 10:46:26 94.0 82.0-99.5 (fL) Final MCH 05/17/2024 10:46:26 31.1 27.0-34.0 (pg) Final MCHC 05/17/2024 10:46:26 33.1 32.0-36.0 (g/dL) Final RDW 05/17/2024 10:46:26 14.2 11.5-15.5 (%) Final Platelets 05/17/2024 10:46:26 271 140-400 (K/uL) Final MPV 05/17/2024 10:46:26 10.1 6.6-11.1 (fL) Final Nucleated erythrocytes/100 leukocytes [Ratio] in Blood by Automated count 05/17/2024 10:46:26 0 <=0 (/100 WBCs) Final Performing Location [facility] [facility] [place] [address] [facility] [place] [address]
--- OUTSIDE RECORDS SUMMARY | 2024-10-27 10:57 | External Medical Summary ---
Author Name Unknown Address Unknown Organization [id number]:[facility] [place] [facility] [place] [address] Laboratory Report Ordering Provider Test Date Status BROCK PAREDES 05/17/2024 10:44:14 Final Normal: <30 mg/g creatinine< br/>High: 30-300 mg/g creatinine
Very High: >300 mg/g creatinine
Nephrotic: >2200 mg/g creatinine Observation Date Value Abnormality Reference (Units ) Status Albumin, Urine 05/17/2024 10:44:14 2.96 (mg/dL) Final Creatinine, Urine 05/17/2024 10:44:14 180 (mg/dL) Final Albumin/Creatinine [Mass Ratio] in Urine 05/17/2024 10:44:14 16 <30 (mg/g Creat) Final Performing Location [facility] [place] [facility] [place] [address] [facility] [address]
[2024-10-27] MEDS: SODIUM CHLORIDE 0.9% 500 ML IV ONE ×2 (11:41→14:31)
[2024-10-27 11:55] LABS: Basophils # (auto) 0.05 K/uL (0.00-0.20); Basophils % (auto) 0.6 %; Eosinophils # (auto) 0.07 K/uL (0.00-0.50); Eosinophils % (auto) 0.8 %; Hemoglobin 14.2 g/dl (14.0-18.0); Immature Granulocytes # (auto) 0.05 K/uL (0.01-0.20); Immature Granulocytes % (auto) 0.6 %; Lymphocytes # (auto) 1.37 K/uL (1.20-3.40); Lymphocytes % (auto) 16.4 %; Mean Corpuscular Hemoglobin 30.7 pg (25.0-34.0); Mean Corpuscular Hgb Conc 33.8 g/dL (32.0-36.0); Mean Corpuscular Volume 90.7 fL (80.0-100.0); Mean Platelet Volume 9.4 fL (9.4-12.4); Monocytes # (auto) 1.02 K/uL (0.11-0.59); Monocytes % (auto) 12.2 %; Neutrophils # (auto) 5.81 K/uL (1.40-6.50); Neutrophils % (auto) 69.4 %; Platelet Count 239 K/uL (130-400); RDW Coefficient of Variation 14.6 % (11.5-14.5); RDW Standard Deviation 48.9 fL (36.4-46.3); Red Blood Count 4.63 M/uL (4.70-6.10); White Blood Count 8.37 K/ul (4.8-10.8)
[2024-10-27 12:10] LABS: Alanine Aminotransferase 20 U/L (7-52); Albumin Globulin Ratio 1.2 (0.9-2); Albumin Level 3.7 gm/dl (3.4-5.0); Alkaline Phosphatase 135 U/L (34-104); Anion Gap 9 (3-11); Aspartate Aminotransferase 21 U/L (13-39); BUN Creatinine Ratio 21.3 (10-20); Bilirubin,Total 0.8 mg/dl (0.2-1.0); Blood Urea Nitrogen 26 mg/dl (6-23); Calcium 8.7 mg/dl (8.6-10.3); Carbon Dioxide 26 mmol/L (21-32); Chloride 103 mmol/L (98-107); Creatine Kinase 51 U/L (30-223); Globulin 3.1 gm/dl (2.5-4.0); Glucose 117 mg/dl (70-99(Fasting)); Magnesium 2.3 mg/dl (1.7-2.4); Potassium 3.8 mmol/L (3.5-5.1); Sodium 138 mmol/L (136-145); Total Protein 6.8 gm/dl (6.0-8.3)
--- NOTE | 2024-10-27 12:11 | Emergency Department Note ---
Impression & Plan Weakness, Acute dehydration, Fall ED Provider Note NAME: RAFAEL SANDY AGE: 84 SEX: M : 1940 ARRIVES VIA: Walk-In INFORMANT: [Patient][daughter] ED PROVIDER(S): [Joseph Sheikh MD] CHIEF COMPLAINT: Diarrhea HISTORY OF PRESENT ILLNESS: The patient is an 84-year-old male presents to the ER with 5 days of weakness. He had a hard time getting out of bed, he actually slumped to the ground 1 time but did not suffer any injury. Today, he began having some nonbloody diarrhea. His urine has been dark and foul-smelling. He has had a dry cough. The patient did feel warm, the daughter gave some Tylenol, she did not have a thermometer to check his temperature. Patient was started on Keflex 2 days ago, this was done as he oftentimes has a UTI and presents like this. Despite the Keflex, he is no better. There have been no sick contacts. The daughter is concerned for dehydration as her father's mouth is quite dry. At the present time, the patient denies any shortness of breath or pain. PMHx/PSHx/Social Hx: See Below PHYSICAL EXAM: GENERAL: Patient is in no acute distress. HEENT: No acute trauma, normocephalic atraumatic, mucous membranes quite dry, no nasal congestion. NECK: No stridor, no adenopathy, no meningismus, trachea is midline. LUNGS: Clear to auscultation bilaterally bilaterally, no wheeze, no rhonchi, breath sounds equal. HEART: Slight systolic murmur, regular rate and rhythm. ABDOMEN: Soft, nontender, no peritonitis. EXTREMITIES: No cyanosis, full range of motion of all the joints without pain or difficulty. NEUROLOGIC: Awake, seems somewhat somnolent/sleepy, no acute motor or sensory deficits, no focal weakness. SKIN: No jaundice, no diaphoresis. DIFFERENTIAL DIAGNOSIS: Dehydration, electrolyte disturbance, renal failure, UTI, pneumonia, viral illness, among others. EMERGENCY DEPARTMENT PROCEDURES: MEDICAL DECISION MAKING: There is no leukocytosis or concerning anemia. There is a normal platelet count. No renal failure or significant electrolyte abnormality. No concerning liver enzyme elevation. The patient appeared to be in a euthyroid state. ECG shows a sinus rhythm, no acute ischemia, no dysrhythmia. Cardiac enzyme testing x 1 is not consistent with acute cardiac injury. Urinalysis shows some dehydration and hematuria, no obvious infection. Respiratory bio fire was negative. Chest x-ray shows some chronic change, no focal pneumonia. On exam, the patient appeared quite dehydrated. He was not febrile or toxic. The patient received 2 L of IV saline for hydration. The patient presents with weakness, falling. He is quite dehydrated. Given his circumstances, I do think a hospital stay is warranted. The cause for the weakness is unclear. Certainly, partially treated UTI is a possibility, dehydration and debilitation are possibilities. I spoke with the patient and case management. The on-call hospitalist was consulted. Prior/Outside records/notes reviewed: None ECG per my interpretation: Indication was weakness. The ECG shows a sinus rhythm with some PVCs. The rate is 76. There is no acute ST elevation, QTc was 459 Continuous Cardiac Monitoring per my interpretation: An order was placed for continuous cardiac monitoring. The monitor shows a rate of 63 with sinus rhythm with PVCs. Imaging/x-ray results per my interpretation: Chest x-ray shows some chronic change, I see no focal pneumonia or CHF. Chronic Medical/Social conditions affecting care: Advanced age. Care/Management discussed with: Case management, the on-call hospitalist. Level of care consideration(s): After review of the information above and other included data: --I believe the patient requires escalation of care to admission DISPOSITION: Admission Past Med/Surg History Problem List (Updated 10/27/24 @ 15:28 by Joseph Sheikh MD) Fall (Acute) Acute dehydration (Acute) Weakness (Acute) Weakness (Acute) UTI (urinary tract infection) (Acute) History of CVA (cerebrovascular accident) Osteomyelitis (Acute) CKD (chronic kidney disease) stage 3, GFR 30-59 ml/min Pulmonary emboli (Acute) DVT (deep venous thrombosis) (Acute) Atrial fibrillation Hypertension TIA (transient ischemic attack) (Acute) Medical History Nausea vomiting and diarrhea Pulmonary embolism Surgical History No pertinent past surgical history Family History Other Family history non-contributory Social History Smoking Status: Never smoker Second Hand Exposure: No; Do You Dip or Chew Tobacco: No; Hx Alcohol Use: No Hx Substance Use: No Preferred Language: Moroccan 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 Ability: Effective 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 Ability Comment: speech garbled, but understandable Technical Support Agent Required: No Beliefs That Will Affect Care: None Current Living Situation: Family Current Living Situation Comment: lives with daughter Feels Safe at Home: Yes Assistive Devices: Walker and Other Allergies Allergies Allergy/AdvReac Type Severity Reaction Status Date / Time No Known Allergies Allergy Verified 12/04/23 19:59 Home Meds Home Medications Medication Instructions Recorded Confirmed amlodipine 5 mg tablet 5 mg PO QAM 10/10/19 10/27/24 lisinopril 20 mg tablet 20 mg PO QAM 10/10/19 10/27/24 simvastatin 20 mg tablet 20 mg PO HS 10/10/19 10/27/24 tamsulosin 0.4 mg capsule 0.4 mg PO QAM 12/04/23 10/27/24 cephalexin 500 mg capsule 500 mg PO BID 10/27/24 10/27/24 Previous Rx's Medication Instructions Recorded apixaban 5 mg tablet (Eliquis) 5 mg PO Q12H #60 tabs 05/12/21 metoprolol tartrate 25 mg tablet 12.5 mg (1/2 x 25 mg) PO BID #60 03/16/23 tabs pantoprazole 40 mg tablet,delayed 40 mg PO DAILY #30 tabs 12/07/23 release (Protonix) Results & Data (ED) Vital Signs Vital Signs - 24 hr 10/27/24 11:00 10/27/24 11:29 10/27/24 11:29 Temperature 36.5 C Temperature Source Temporal Artery Scan Pulse Rate 86 68 Pulse Rate [Apical] 68 Pulse Rate from SpO2 Sensor Pulse Rhythm Regular Pulse Rhythm [Apical] Regular Pulse Strength [Apical] Normal Respiratory Rate 20 18 18 Respiratory Effort / Characteristics Non-Labored Spontaneous Non-Labored Spontaneous Respiratory Depth Normal Normal Respiratory Pattern Regular Regular Blood Pressure 101/58 L Blood Pressure [Right Arm] 105/68 Blood Pressure Mean 72 Blood Pressure Mean [Right Arm] 80 Blood Pressure Position [Right Arm] Semi-fowlers Pulse Oximetry 96 96 96 Oxygen Delivery Method Room Air Room Air Room Air Sepsis Recent Fever Within 48 Hours No Sepsis New/Unexplained Change in Mental Status N/A Sepsis Action Taken by Nursing No Action Required 10/27/24 11:48 10/27/24 11:57 10/27/24 12:30 Temperature Temperature Source Pulse Rate 63 60 62 Pulse Rate [Apical] Pulse Rate from SpO2 Sensor 60 62 Pulse Rhythm Pulse Rhythm [Apical] Pulse Strength [Apical] Respiratory Rate 20 18 Respiratory Effort / Characteristics Respiratory Depth Respiratory Pattern Blood Pressure 123/68 121/63 Blood Pressure [Right Arm] Blood Pressure Mean 86 82 Blood Pressure Mean [Right Arm] Blood Pressure Position [Right Arm] Pulse Oximetry 93 93 Oxygen Delivery Method Room Air Room Air Sepsis Recent Fever Within 48 Hours Sepsis New/Unexplained Change in Mental Status Sepsis Action Taken by Nursing 10/27/24 14:00 Temperature Temperature Source Pulse Rate 66 Pulse Rate [Apical] Pulse Rate from SpO2 Sensor 66 Pulse Rhythm Pulse Rhythm [Apical] Pulse Strength [Apical] Respiratory Rate 20 Respiratory Effort / Characteristics Respiratory Depth Respiratory Pattern Blood Pressure 130/66 Blood Pressure [Right Arm] Blood Pressure Mean 87 Blood Pressure Mean [Right Arm] Blood Pressure Position [Right Arm] Pulse Oximetry 91 Oxygen Delivery Method Room Air Sepsis Recent Fever Within 48 Hours Sepsis New/Unexplained Change in Mental Status Sepsis Action Taken by Detention Medications Current Medication List: was personally reviewed by me Laboratory Data Attestation: I reviewed the patient's lab results. 10/27/24 11:10 10/27/24 11:10 Lab Results 10/27/24 10/27/24 10/27/24 Range/Units 11:10 11:20 12:15 WBC 8.37 (4.8-10.8) K/ul RBC 4.63 L (4.70-6.10) M/uL Hgb 14.2 (14.0-18.0) g/dl Hct 42.0 (42.0-52.0) % MCV 90.7 (80.0-100.0) fL MCH 30.7 (25.0-34.0) pg MCHC 33.8 (32.0-36.0) g/dL RDW Std Deviation 48.9 H (36.4-46.3) fL RDW Coeff of Renan 14.6 H (11.5-14.5) % Plt Count 239 (130-400) K/uL MPV 9.4 (9.4-12.4) fL Immature Gran % (Auto) 0.6 % Neut % (Auto) 69.4 % Lymph % (Auto) 16.4 % [place] % (Auto) 12.2 % Eos % (Auto) 0.8 % Baso % (Auto) 0.6 % Neut # (Auto) 5.81 (1.40-6.50) K/uL Lymph # (Auto) 1.37 (1.20-3.40) K/uL [place] # (Auto) 1.02 H (0.11-0.59) K/uL Eos # (Auto) 0.07 (0.00-0.50) K/uL Baso # (Auto) 0.05 (0.00-0.20) K/uL Immature Gran # (Auto) 0.05 (0.01-0.20) K/uL Sodium 138 (136-145) mmol/L Potassium 3.8 (3.5-5.1) mmol/L Chloride 103 (98-107) mmol/L Carbon Dioxide 26 (21-32) mmol/L Anion Gap 9 (3-11) BUN 26 H (6-23) mg/dl Creatinine 1.22 (0.6-1.4) mg/dl Est Cr Clr Drug Dosing Not Reportable eGFR 57.74 BUN/Creatinine Ratio 21.3 H (10-20) Glucose 117 H (70-99(Fasting)) mg/dl Calcium 8.7 (8.6-10.3) mg/dl Magnesium 2.3 (1.7-2.4) mg/dl Total Bilirubin 0.8 (0.2-1.0) mg/dl AST 21 (13-39) U/L ALT 20 (7-52) U/L Alkaline Phosphatase 135 H (34-104) U/L Total Creatine Kinase 51 (30-223) U/L Troponin I High Sens 7.1 (0-20) pg/ml Total Protein 6.8 (6.0-8.3) gm/dl Albumin 3.7 (3.4-5.0) gm/dl Globulin 3.1 (2.5-4.0) gm/dl Albumin/Globulin Ratio 1.2 (0.9-2) TSH 1.195 (0.300-4.500) uIu/ml Urine Color Dark Yellow Urine Appearance Clear (Clear) Urine pH 5.5 (4.5-7.5) Ur Specific [place] 1.028 (1.000-1.030) Urine Protein 1+ H (Negative) Urine Glucose (UA) Negative (Negative) Urine Ketones 1+ H (Negative) Urine Blood 2+ H (Negative) Urine Nitrite Negative (Negative) Urine Bilirubin Negative (Negative) Urine Urobilinogen Negative (Negative) Ur Leukocyte Esterase Negative (Negative) Urine WBC (Auto) 0-5 (0-5) /hpf Urine RBC (Auto) >20 H (0-2) /hpf U Hyaline Cast (Auto) 0-2 (0-2) /lpf U Epithel Cells (Auto) 0-2 (0-2) /hpf Urine Bacteria (Auto) None Seen (None Seen) Adenovirus (PCR) Not Detected (NotDetected) B. pertussis DNA (PCR) Not Detected (NotDetected) B.parapertussis DNA PCR Not Detected (NotDetected) C. pneumoniae DNA (PCR) Not Detected (NotDetected) Coronavirus OC43 (PCR) Not Detected (NotDetected) Coronavirus HKU1 (PCR) Not Detected (NotDetected) Coronavirus 229E (PCR) Not Detected (NotDetected) SARS-CoV-2 (PCR) Not Detected (NotDetected) Coronavirus NL63 (PCR) Not Detected (NotDetected) Human Metapneumovir PCR Not Detected (NotDetected) Influenza Type A (PCR) Not Detected (NotDetected) Influenza Type B (PCR) Not Detected (NotDetected) M. pneumoniae (PCR) Not Detected (NotDetected) Parainfluenza 1 (PCR) Not Detected (NotDetected) Parainfluenza 2 (PCR) Not Detected (NotDetected) Parainfluenza 3 (PCR) Not Detected (NotDetected) Parainfluenza 4 (PCR) Not Detected (NotDetected) RSV (PCR) Not Detected (NotDetected) Entero/Rhino (PCR) Not Detected (NotDetected) Administered Medications Discontinued Medications Sodium Chloride (Nss) 500 mls @ 999 mls/hr IV .Q31M ONE Stop: 10/27/24 11:40 Last Infusion: 10/27/24 12:47 Dose: Infused Documented By: MSRaissa Admin: 10/27/24 11:41 Dose: 999 mls/hr Documented By: MSRaissa Sodium Chloride (Nss) 1,000 mls @ 999 mls/hr IV .Q1H1M ONE Stop: 10/27/24 13:04 Last Infusion: 10/27/24 13:54 Dose: Infused Documented By: Admin: 10/27/24 12:19 Dose: 999 mls/hr Documented By: Sodium Chloride (Nss) 500 mls @ 999 mls/hr IV .Q31M ONE Stop: 10/27/24 14:20 Last Admin: 10/27/24 14:31 Dose: 999 mls/hr Documented By: [facility] Imaging Data Radiologist's Impression: Chest X-Ray 10/27/24 11:10 XR chest 1V portable CLINICAL HISTORY: weakness TECHNIQUE: Single frontal radiograph of the chest was obtained. Comparison: Comparison is made to chest radiograph 12/04/2023 FINDINGS: No lines and tubes are seen. The cardiomediastinal silhouette is normal. The lungs are clear. No evidence of pleural effusion or pneumothorax. A skin fold is seen. IMPRESSION: No acute chest disease. ACT 112: Negative or not required by law. Electronically signed by: Dayron Bonilla M.D. 10/27/2024 12:[address] 10/27/24 14:27 CT head without contrast History: Weakness Comparison: 12/04/2023 Technique: Using multidetector thin collimation helical acquisition technique, axial, coronal and sagittal CT images from the skull base to the vertex were obtained without intravenous contrast. Dose reduction techniques were achieved by using automatic exposure control and/or adjustment of mA and/or kV according to patient size and/or use of iterative reconstruction technique. Findings: No intracranial hemorrhage, mass-effect, or midline shift. The ventricles are proportionate to the cerebral sulci. The iqbal to white matter differentiation of the cerebral hemispheres is preserved. The basal cisterns are patent. There is moderate cerebral atrophy. Moderate, patchy low-attenuation changes in the white matter, most suggestive of sequelae of chronic small vessel ischemic disease. The visualized paranasal sinuses are clear. Mastoid air cells are clear. Impression: No acute intracranial pathology. Electronically signed by Rolan Beauchamp 10-27-2024 3:05 PM Discharge Plan Visit Data Chief Complaint: Diarrhea Stated Complaint: DIARRHEA, WEAK, COUGH, PROBABLE DEHYDRATION ED Provider: Joseph Sheikh Discharge Problem: Weakness, Acute dehydration, Fall Patient Disposition: Admitted As Inpatient Condition: Fair Forms Stand Alone Forms: My [facility] Prescriptions Prescriptions: No Action lisinopril 20 mg tablet 20 mg PO QAM amlodipine 5 mg tablet 5 mg PO QAM simvastatin 20 mg tablet 20 mg PO HS Eliquis 5 mg tablet 5 mg PO Q12H Qty: 60 0RF metoprolol tartrate 25 mg Tablet 12.5 mg PO BID Qty: 60 0RF tamsulosin 0.4 mg capsule 0.4 mg PO QAM pantoprazole [Protonix] 40 mg tablet,delayed release (DR/EC) 40 mg PO DAILY Qty: 30 0RF cephalexin 500 mg capsule 500 mg PO BID Referrals Referrals: Tacho Dorsey MD [Primary Care Provider] - Discharge Problem: Fall Qualifiers: Encounter type: initial encounter Qualified Code(s): W19.XXXA - Unspecified fall, initial encounter
[2024-10-27 12:15] LABS: Troponin I High Sensitivity 7.1 pg/ml (0-20)
[2024-10-27] MEDS: SODIUM CHLORIDE 0.9% 1,000 ML IV ONE (12:19)
--- NOTE | 2024-10-27 12:19 | XRay Report ---
XR chest 1V portable CLINICAL HISTORY: weakness TECHNIQUE: Single frontal radiograph of the chest was obtained. Comparison: Comparison is made to chest radiograph 12/04/2023 FINDINGS: No lines and tubes are seen. The cardiomediastinal silhouette is normal. The lungs are clear. No evid ence of pleural effusion or pneumothorax. A skin fold is seen. IMPRESSION: No acute chest disease. ACT 112: Negative or not required by law. Electronically signed by: Dayron Bonilla M.D. 10/27/2024 12:17 PM
[2024-10-27 12:25] LABS: Thyroid Stimulating Hormone 1.195 uIu/ml (0.300-4.500)
[2024-10-27 12:50] LABS: Appearance Urine Clear (Clear); Bacteria Urine Automated None Seen (None Seen); Bilirubin Urine Negative (Negative); Blood Urine 2+ (Negative); Cast Urine Automated 0-2 /lpf (0-2); Color Urine Dark Yellow; Epithelial Cell Urine Auto 0-2 /hpf (0-2); Glucose Urine UA Negative (Negative); Ketones Urine 1+ (Negative); Leukocyte Esterase Urine Negative (Negative); Nitrite Urine Negative (Negative); Protein Urine 1+ (Negative); RBC Urine Automated >20 /hpf (0-2); Specific Gravity Urine 1.028 (1.000-1.030); Urobilinogen Urine Negative (Negative); WBC Urine Automated 0-5 /hpf (0-5); pH Urine 5.5 (4.5-7.5)
[2024-10-27 13:15] LABS: Adenovirus PCR Not Detected (NotDetected); Bordetella parapertussis PCR Not Detected (NotDetected); Bordetella pertussis PCR Not Detected (NotDetected); Chlamydia pneumoniae PCR Not Detected (NotDetected); Coronavirus 229E PCR Not Detected (NotDetected); Coronavirus CoV-2 (COVID19)PCR Not Detected (NotDetected); Coronavirus HKU1 PCR Not Detected (NotDetected); Coronavirus NL63 PCR Not Detected (NotDetected); Coronavirus OC43PCR Not Detected (NotDetected); Human Metapneumovirus PCR Not Detected (NotDetected); Influenza A PCR Not Detected (NotDetected); Influenza B PCR Not Detected (NotDetected); Mycoplasma pneumoniae PCR Not Detected (NotDetected); Parainfluenza Virus 1 PCR Not Detected (NotDetected); Parainfluenza Virus 2 PCR Not Detected (NotDetected); Parainfluenza Virus 3 PCR Not Detected (NotDetected); Parainfluenza Virus 4 PCR Not Detected (NotDetected); Respiratory Syncytial VirusPCR Not Detected (NotDetected); Rhinovirus/Enterovirus PCR Not Detected (NotDetected)
--- NOTE | 2024-10-27 14:28 | History & Physical Report ---
Date of Service October 27, 2024 Assessment & Plan (1) UTI (urinary tract infection): (2) Acute dehydration: (3) Weakness: (4) Atrial fibrillation: (5) CKD (chronic kidney disease) stage 3, GFR 30-59 ml/min: (6) History of CVA (cerebrovascular accident): (7) Hypertension: Plan This is an 84 y/o male with history of CVA with right hemiplegia, HTN, CKD3, atrial fibrillation, prior PE, hyperlipidemia, and other history as outlined below who presents to the ED with profound weakness and possible UTI. Pt has been on cephalexin for the last two days without significant improvement. His weakness has also not improved. Since starting the antibiotic he has developed diarrhea. Work-up in the ED showed normal WBCs, creatinine was 1.22 (0.98 in Nov 2023). UA showed 1+ protein, ketones, 2+ blood but negative for nitrites, leukocyte esterase. Pt was referred for admission for profound weakness, dehydration, partially treated UTI. #Generalized Weakness #Fall #Acute complicated UTI - suspect partially treated - Admit to med telemetry - Change to IV Rocephin - Blood and urine cultures - Stat CT head to r/o CVA in view of abrupt change in status this week, prior hx of CVA - PT/OT evaluations, fall precautions #Dehydration #CKD3a - Received 2L of IVF in the ED via bolus, will order maintenance fluids - Encourage oral intake - pureed diet at home, will continue - Follow labs #Diarrhea - Stool for C diff, add probiotic - Monitor electrolytes #Hypertension - chronic, BP in the ED stable - Continue home meds and monitor #History of atrial fibrillation #History of DVT/PE - Continue anticoagulation, home beta alfred #BPH - chronic - Continue tamsulosin Pt seen and reviewed with attending physician, Dr. Long. Plan of care discussed and as outlined above. Code status: full code DVT prophylaxis: on Eliquis chronically - will continue Admit to med telemetry, PT/OT evaluations pending Ry Godoy PA-C History of Present Illness Chief Complaint: weakness Primary Care Provider: Tacho Dorsey MD This is an 84 y/o male with history of CVA with right hemiplegia, HTN, CKD3, atrial fibrillation, prior PE, hyperlipidemia, and other history as outlined below who presents to the ED with profound weakness and possible UTI. History is obtained from the patient and his daughter at the bedside, with whom he lives. Pt was in his usual state of health on Tuesday (five days ago) but on Tuesday, his daughter noticed an abrupt change, specifically significant weakness. He is typically fairly independent with ADLs and uses a walker to ambulate. However, on Tuesday, he was unable even to get out of bed. His daughter also noticed that his urine was very dark and foul-smelling. On Tuesday, she called into the PCP office regarding his symptoms and pt was prescribed a course of cephalexin for presumed UTI. He has been taking this for two days now. Initially, he seemed to improve slightly but now again barely able to get out of bed. He did attempt but "crumpled to the ground" and was unable to get up on his own. His oral intake has been limited over the last few days - his daughter reports he is eating very little. He denies nausea or vomiting but simply isn't hungry. Since starting the cephalexin, he has developed diarrhea with episodes of incontinence. He has not had any documented fevers but his daughter reports he felt hot to her earlier today. She notes that he has been intermittently more lethargic. His right arm has also been numb at times this week and "harder to use" than his baseline hemiplegia. Outpatient PCP notes reviewed for events of this week, prior history. Allergies Allergy/AdvReac Type Severity Reaction Status Date / Time No Known Allergies Allergy Verified 12/04/23 19:59 Home Medications Medication Instructions Recorded Confirmed Type amlodipine 5 mg tablet 5 mg PO QAM 10/10/19 10/27/24 History lisinopril 20 mg tablet 20 mg PO QAM 10/10/19 10/27/24 History simvastatin 20 mg tablet 20 mg PO HS 10/10/19 10/27/24 History apixaban 5 mg tablet (Eliquis) 5 mg PO Q12H #60 tabs 05/12/21 10/27/24 Rx metoprolol tartrate 25 mg tablet 12.5 mg (1/2 x 25 mg) PO BID #60 03/16/23 10/27/24 Rx tabs tamsulosin 0.4 mg capsule 0.4 mg PO QAM 12/04/23 10/27/24 History pantoprazole 40 mg tablet,delayed 40 mg PO DAILY #30 tabs 12/07/23 10/27/24 Rx release (Protonix) cephalexin 500 mg capsule 500 mg PO BID 10/27/24 10/27/24 History Past Med/Surg History Problem List (Updated 10/27/24 @ 19:38 by Magnolia Godoy PA-C) UTI (urinary tract infection) Fall (Acute) Acute dehydration (Acute) Weakness (Acute) Medical History Osteomyelitis CKD (chronic kidney disease) stage 3, GFR 30-59 ml/min Atrial fibrillation DVT (deep venous thrombosis) Pulmonary emboli Hypertension History of CVA (cerebrovascular accident) TIA (transient ischemic attack) Nausea vomiting and diarrhea Pulmonary embolism Surgical History No pertinent past surgical history Family History Other Family history non-contributory Social History Smoking Status: Never smoker Second Hand Exposure: No; Do You Dip or Chew Tobacco: No; Hx Alcohol Use: No Hx Substance Use: No Preferred Language: Turkish 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 Ability: Effective 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 Ability Comment: speech garbled - per dgh r/t not wearing dentures, 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 Beliefs That Will Affect Care: None Current Living Situation: Family Current Living Situation Comment: Lives with dg & son-in-law Feels Safe at Home: Yes Assistive Devices: Denture - Upper, Denture - Lower and Walker Review of Systems Review of Systems: All systems reviewed & are unremarkable except as noted in Subjective Physical Exam Physical Exam: General: awake, alert, NAD HEENT: PERRL, tongue midline, no facial asymmetry, dry oral mucosa, +thrush Neck: supple, trachea midline Heart: RRR Lungs: CTA bilaterally on the anterior Abdomen: soft, NT, +BS Extremities: no pedal edema Skin: warm, dry, no jaundice Neurologic: moving all extremities but strength in RLE 4/5 with hip/knee extension, LLE 5/5, right application project leader strength slightly less than left application project leader Results & Data Results & Data Vital Signs (Past 12 Hours) Vital Signs Temp Pulse Pulse Resp BP BP Pulse Ox 10/27/24 14:00 66 20 130/66 91 10/27/24 12:30 62 18 121/63 93 10/27/24 11:57 60 20 123/68 93 10/27/24 11:48 63 10/27/24 11:29 68 18 96 10/27/24 11:29 68 18 105/68 96 10/27/24 11:00 36.5 C 86 20 101/58 L 96 O2 Del Method 10/27/24 14:00 Room Air 10/27/24 12:30 Room Air 10/27/24 11:57 Room Air 10/27/24 11:48 10/27/24 11:29 Room Air 10/27/24 11:29 Room Air 10/27/24 11:00 Room Air Laboratory Results Lab Results 10/27/24 10/27/24 10/27/24 Range/Units 11:10 11:20 12:15 WBC 8.37 (4.8-10.8) K/ul RBC 4.63 L (4.70-6.10) M/uL Hgb 14.2 (14.0-18.0) g/dl Hct 42.0 (42.0-52.0) % MCV 90.7 (80.0-100.0) fL MCH 30.7 (25.0-34.0) pg MCHC 33.8 (32.0-36.0) g/dL RDW Std Deviation 48.9 H (36.4-46.3) fL RDW Coeff of Renan 14.6 H (11.5-14.5) % Plt Count 239 (130-400) K/uL MPV 9.4 (9.4-12.4) fL Immature Gran % (Auto) 0.6 % Neut % (Auto) 69.4 % Lymph % (Auto) 16.4 % Mcdonough % (Auto) 12.2 % Eos % (Auto) 0.8 % Baso % (Auto) 0.6 % Neut # (Auto) 5.81 (1.40-6.50) K/uL Lymph # (Auto) 1.37 (1.20-3.40) K/uL Mcdonough # (Auto) 1.02 H (0.11-0.59) K/uL Eos # (Auto) 0.07 (0.00-0.50) K/uL Baso # (Auto) 0.05 (0.00-0.20) K/uL Immature Gran # (Auto) 0.05 (0.01-0.20) K/uL Sodium 138 (136-145) mmol/L Potassium 3.8 (3.5-5.1) mmol/L Chloride 103 (98-107) mmol/L Carbon Dioxide 26 (21-32) mmol/L Anion Gap 9 (3-11) BUN 26 H (6-23) mg/dl Creatinine 1.22 (0.6-1.4) mg/dl Est Cr Clr Drug Dosing Not Reportable eGFR 57.74 BUN/Creatinine Ratio 21.3 H (10-20) Glucose 117 H (70-99(Fasting)) mg/dl Calcium 8.7 (8.6-10.3) mg/dl Magnesium 2.3 (1.7-2.4) mg/dl Total Bilirubin 0.8 (0.2-1.0) mg/dl AST 21 (13-39) U/L ALT 20 (7-52) U/L Alkaline Phosphatase 135 H (34-104) U/L Total Creatine Kinase 51 (30-223) U/L Troponin I High Sens 7.1 (0-20) pg/ml Total Protein 6.8 (6.0-8.3) gm/dl Albumin 3.7 (3.4-5.0) gm/dl Globulin 3.1 (2.5-4.0) gm/dl Albumin/Globulin Ratio 1.2 (0.9-2) TSH 1.195 (0.300-4.500) uIu/ml Urine Color Dark Yellow Urine Appearance Clear (Clear) Urine pH 5.5 (4.5-7.5) Ur Specific [place] 1.028 (1.000-1.030) Urine Protein 1+ H (Negative) Urine Glucose (UA) Negative (Negative) Urine Ketones 1+ H (Negative) Urine Blood 2+ H (Negative) Urine Nitrite Negative (Negative) Urine Bilirubin Negative (Negative) Urine Urobilinogen Negative (Negative) Ur Leukocyte Esterase Negative (Negative) Urine WBC (Auto) 0-5 (0-5) /hpf Urine RBC (Auto) >20 H (0-2) /hpf U Hyaline Cast (Auto) 0-2 (0-2) /lpf U Epithel Cells (Auto) 0-2 (0-2) /hpf Urine Bacteria (Auto) None Seen (None Seen) Adenovirus (PCR) Not Detected (NotDetected) B. pertussis DNA (PCR) Not Detected (NotDetected) B.parapertussis DNA PCR Not Detected (NotDetected) C. pneumoniae DNA (PCR) Not Detected (NotDetected) Coronavirus OC43 (PCR) Not Detected (NotDetected) Coronavirus HKU1 (PCR) Not Detected (NotDetected) Coronavirus 229E (PCR) Not Detected (NotDetected) SARS-CoV-2 (PCR) Not Detected (NotDetected) Coronavirus NL63 (PCR) Not Detected (NotDetected) Human Metapneumovir PCR Not Detected (NotDetected) Influenza Type A (PCR) Not Detected (NotDetected) Influenza Type B (PCR) Not Detected (NotDetected) M. pneumoniae (PCR) Not Detected (NotDetected) Parainfluenza 1 (PCR) Not Detected (NotDetected) Parainfluenza 2 (PCR) Not Detected (NotDetected) Parainfluenza 3 (PCR) Not Detected (NotDetected) Parainfluenza 4 (PCR) Not Detected (NotDetected) RSV (PCR) Not Detected (NotDetected) Entero/Rhino (PCR) Not Detected (NotDetected) Diagnostic Findings Chest X-Ray 10/27/24 11:10 XR chest 1V portable CLINICAL HISTORY: weakness TECHNIQUE: Single frontal radiograph of the chest was obtained. Comparison: Comparison is made to chest radiograph 12/04/2023 FINDINGS: No lines and tubes are seen. The cardiomediastinal silhouette is normal. The lungs are clear. No evidence of pleural effusion or pneumothorax. A skin fold is seen. IMPRESSION: No acute chest disease. ACT 112: Negative or not required by law. Electronically signed by: Dayron Bonilla M.D. 10/27/2024 12:17 PM Medications Administered Discontinued Medications Sodium Chloride (Nss) 500 mls @ 999 mls/hr IV .Q31M ONE Stop: 10/27/24 11:40 Last Infusion: 10/27/24 12:47 Dose: Infused Documented By: Admin: 10/27/24 11:41 Dose: 999 mls/hr Documented By: Sodium Chloride (Nss) 1,000 mls @ 999 mls/hr IV .Q1H1M ONE Stop: 10/27/24 13:04 Last Infusion: 10/27/24 13:54 Dose: Infused Documented By: Admin: 10/27/24 12:19 Dose: 999 mls/hr Documented By: Supervising Physician Co-Signing Physician Notes 84-year-old male with PMH of HLD, CVA/right hemiplegia currently ambulates with walker, HTN, CKD stage III, A-fib, pulmonary embolism, amputation of left great toe who lives at home with his daughter presented to the ED with complaint of progressive weakness since last few days associated with foul smelling/scant urine. Per patient's daughter, patient has become weak since Tuesday, fell on knees on [ denies LOC and head trauma], had subjective fever, they did not measure temperature at home, had foul-smelling urine, was started on Keflex as an outpatient which he took for 2 days, patient did not improve, continue to have poor intake, had massive diarrhea 2 episodes today. Hence patient was brought to the ED. Acute complicated urinary tract infection Generalized weakness Fall On Keflex for 2 days prior to arrival, continue with Rocephin, add probiotic, follow admitting urine and blood culture. CT H w/ no acute findings, send b/l knee xray. PT/OT. Pt takes pureed diet at home, c/w puree Pt appears dehydrated 2/2 poor po intake and diarrhea, c/w ivf. Oral thrush: noted on exam, nystatin burundian and spit. follow clinically. 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 send stool pcr and c diff. add probiotic and psyllium fiber. Monitor and replete electrolytes. Other chronic medical conditions: History of CVA: Speaks slowly and somewhat difficult to understand fashion. Continue with home statin and Eliquis. History of A-fib: Continue home metoprolol and Eliquis. History of hypertension: Continue home amlodipine, lisinopril and metoprolol. History of BPH: Continue home Flomax DVT prophylaxis: Patient on Eliquis Disposition: Medical floor, PT/OT consult. Full code On exam: GENERAL: Alert and oriented x3. NAD, on RA. Appears weak/frail/sick. HEENT: No pallor, no icterus. Pupils equal, round and reactive to light. dry mucosa moist. Oral thrush noted. NECK: No JVD, no neck masses. HEART: S1 and S2 heard. Regular rate and rhythm. No murmur, no gallop. RESPIRATORY SYSTEM: Normal AP diameter. No accessory muscle use. No wheezing, no crackles. ABDOMEN: Soft, bowel sounds present, nontender, no distention. CENTRAL NERVOUS SYSTEM: No facial droop. Speech is clear. Obeys simple commands. Moves extremities. EXTREMITIES: No edema, no erythema seen. I have seen and examined the patient and have discussed the case with the provider above. I agree with the assessment and plan as stated. Time spent: 30 min. (1) UTI (urinary tract infection) Hematuria presence: without hematuria Urinary tract infection type: site unspecified Qualified Code(s): N39.0 - Urinary tract infection, site not specified (4) Atrial fibrillation Atrial fibrillation type: unspecified Qualified Code(s): I48.91 - Unspecified atrial fibrillation (5) CKD (chronic kidney disease) stage 3, GFR 30-59 ml/min Chronic kidney disease stage 3 subtype: stage 3a (GFR 45-59) Qualified Code(s): N18.31 - Chronic kidney disease, stage 3a (7) Hypertension Hypertension type: unspecified Qualified Code(s): I10 - Essential (primary) hypertension
--- NOTE | 2024-10-27 15:05 | CT Scan Report ---
CT head without contrast History: Weakness Comparison: 12/04/2023 Technique: Using multidetector thin collimation helical acquisition technique, axial, coronal and sagittal CT images from the skull base to the vertex were obtained without intravenous contrast. Dose reduction techniques were achieved by using automatic exposure control and/or adjustment of mA and/or kV according to patient size and/or use of iterative reconstruction technique. Findings: No intracranial hemorrhage, mass-effect, or midline shift. The ventricles are proportionate to the cerebral sulci. The iqbal to white matter differentiation of the cerebral hemispheres is preserved. The basal cisterns are patent. There is moderate cerebral atrophy. Moderate, patchy low-attenuation changes in the white matter, most suggestive of sequelae of chronic small vessel ischemic disease. The visualized paranasal sinuses are clear. Mastoid air cells are clear. Impression: No acute intracranial pathology. Electronically signed by Rolan Beauchamp 10-27-2024 3:05 PM
[2024-10-27] MEDS: cefTRIAXone SODIUM 2,000 MG/50 ML BAG IV STA (15:55)
[2024-10-27] MEDS: SODIUM CHLORIDE 0.9% 1,000 ML IV SCH (15:59)
[2024-10-27] MEDS ORDERED: ACETAMINOPHEN 325 MG TAB PO PRN (18:38)
--- NOTE | 2024-10-27 18:54 | XRay Report ---
EXAM: Radiographs of the Bilateral Knees 3 Views INDICATION: Posttraumatic pain. TECHNIQUE: Three views of the bilateral knees. COMPARISON: No relevant prior studies available. FINDINGS: Bones/joints: Very small bilateral joint effusions present. Bilateral medial and patellofemoral spurring and narrowing. There is right greater than left lateral joint line spurring. No fracture or erosion. No loose body. No dislocation. There is moderate bilateral medial and lateral chondrocalcinosis. There is dense soft tissue calcification posterior and medial to the proximal tibial shaft presumably from previous soft tissue trauma. Soft tissues: There is dense atherosclerotic calcification in both distal dense atherosclerotic calcification noted bilaterally. There is mild anterior soft tissue swelling left greater than right. No radiopaque foreign body. IMPRESSION: 1. No acute abnormality of either knee. 2. Very small bilateral joint effusions and symmetrical tricompartment primary osteoarthritis. ACT 112: Negative or not required by law. Electronically signed by Treasure Lou 10-27-2024 6:54 PM
[2024-10-27] MEDS: APIXABAN 5 MG TABLET PO SCH (19:28)
[2024-10-27] MEDS: SIMVASTATIN 20 MG TAB PO SCH (20:29)
[2024-10-27] MEDS: METOPROLOL TARTRATE 25 MG TAB PO SCH (20:29)
[2024-10-27] MEDS: NYSTATIN SUSP 500,000 U/5 ML UDC PO SCH (20:29)
--- NOTE | 2024-10-28 04:45 | 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 Note ---
Date of Service: October 28, 2024 Patient noted to have cough symptoms after water intake as per RN. AP Aspiration risk IT SECURITY CONSULTANT evfrankie in a.m.
[2024-10-28] MEDS: lisinopril 20 MG TAB PO SCH (08:14)
[2024-10-28] MEDS: PANTOprazole 40 MG TAB PO SCH (08:14)
[2024-10-28] MEDS: ADVANCED PROBIOTIC 625 MG CAPSULE PO SCH (08:14)
[2024-10-28] MEDS: TAMSULOSIN HCL 0.4 MG CAP PO SCH (08:14)
[2024-10-28] MEDS: amLODIPine BESYLATE 5 MG TAB PO SCH (08:14)
[2024-10-28 09:36] LABS: Hematocrit (blood only) 37.4 % (42.0-52.0); Hemoglobin 12.4 g/dl (14.0-18.0); Mean Corpuscular Hemoglobin 29.8 pg (25.0-34.0); Mean Corpuscular Hgb Conc 33.2 g/dL (32.0-36.0); Mean Corpuscular Volume 89.9 fL (80.0-100.0); Mean Platelet Volume 9.2 fL (9.4-12.4); Platelet Count 235 K/uL (130-400); RDW Coefficient of Variation 14.6 % (11.5-14.5); RDW Standard Deviation 48.3 fL (36.4-46.3); Red Blood Count 4.16 M/uL (4.70-6.10); White Blood Count 7.73 K/ul (4.8-10.8)
[2024-10-28 10:05] LABS: Creatinine Clr Calc Pharmacy 61.9 ml/min; Magnesium 2.1 mg/dl (1.7-2.4); Potassium 3.6 mmol/L (3.5-5.1)
[2024-10-28] MEDS: INFLUENZA VACC TS2024-25(65y+)/PF (IIV3) 0.5mL Syr IM ONE (11:37)
--- NOTE | 2024-10-28 13:55 | Hospitalist Progress Note ---
Date of Service October 28, 2024 Assessment & Plan (1) UTI (urinary tract infection): (2) Acute dehydration: (3) Weakness: (4) Atrial fibrillation: (5) CKD (chronic kidney disease) stage 3, GFR 30-59 ml/min: (6) History of CVA (cerebrovascular accident): (7) Hypertension: Plan 84-year-old male with PMH of HLD, CVA/right hemiplegia currently ambulates with walker, HTN, CKD stage III, A-fib, pulmonary embolism, amputation of left great toe who lives at home with his daughter presented to the ED with complaint of progressive weakness since last few days associated with foul smelling/scant urine. 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 Hence patient was brought to the ED. He is being managed for the following: Acute complicated urinary tract infection, partially treated at presentation Generalized weakness Fall On Keflex for 2 days prior to arrival, continue with Rocephin 10/27, c/w pr obiotic, follow admitting urine and blood culture. CT H w/ no acute findings, b/l knee xray w/ no fracture. PT/OT. Pt takes pureed diet at home, c/w puree IVF if po intake inadequate. f/u speech eval due to note of aspiration overnight of 10/27-10/28 Oral thrush: pt w/ no pain. nystatin barbadian and spit. follow clinically. 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 Reps biofire neg, stool pcr and c diff uncollected. c/w probiotic and psyllium fiber. Monitor and replete electrolytes. Other chronic medical conditions: History of CVA: Speaks slowly and somewhat difficult to understand fashion. Continue with home statin and Eliquis. History of A-fib: Continue home metoprolol and Eliquis. History of hypertension: Continue home amlodipine, lisinopril and metoprolol. History of BPH: Continue home Flomax DVT prophylaxis: Patient on Eliquis Disposition: Medical floor, PT/OT consult. Full code Admission and Anticipated Discharge Date Admission Date: October 27, 2024 Subjective Patient was seen and examined at bedside. Patient was lying in bed, on room air, NAD, resting comfortably. Patient reports feeling better, denies chest pain or abdominal pain, reports eating okay. Physical Exam Physical Exam: General: awake, alert, NAD. Appears frail/weak/chronically ill. HEENT: PERRL, tongue midline, no facial asymmetry, moist oral mucosa, +thrush Neck: supple, trachea midline Heart: RRR Lungs: CTA bilaterally on the anterior Abdomen: soft, NT, +BS Extremities: no pedal edema Skin: warm, dry, no jaundice Neurologic: moving all extremities. Results & Data Results & Data Vital Signs (Past 12 Hours) Vital Signs Temp Pulse Pulse Resp BP BP Pulse Ox 10/28/24 11:27 36.8 C 61 16 119/65 94 10/28/24 07:45 10/28/24 07:45 37.1 C 18 10/28/24 07:32 38.0 C H 77 16 151/70 H 92 10/28/24 05:34 61 10/28/24 04:42 37.1 C 66 18 120/66 93 10/28/24 03:23 36.5 C 65 20 128/65 91 O2 Del Method 10/28/24 11:27 Room Air 10/28/24 07:45 Room Air 10/28/24 07:45 10/28/24 07:32 Room Air 10/28/24 05:34 10/28/24 04:42 Room Air 10/28/24 03:23 Room Air (1) UTI (urinary tract infection) Urinary tract infection type: site unspecified Hematuria presence: without hematuria Qualified Code(s): N39.0 - Urinary tract infection, site not specified (4) Atrial fibrillation Atrial fibrillation type: unspecified Qualified Code(s): I48.91 - Unspecified atrial fibrillation (5) CKD (chronic kidney disease) stage 3, GFR 30-59 ml/min Chronic kidney disease stage 3 subtype: stage 3a (GFR 45-59) Qualified Code(s): N18.31 - Chronic kidney disease, stage 3a (7) Hypertension Hypertension type: unspecified Qualified Code(s): I10 - Essential (primary) hypertension
[2024-10-28] MEDS: cefTRIAXone SODIUM 2,000 MG/50 ML BAG IV SCH (15:00)
[2024-10-28 16:57] LABS: Adenovirus F 40/41 PCR Not Detected (NotDetected); Astrovirus PCR Not Detected (NotDetected); Campylobacter PCR Not Detected (NotDetected); Cryptosporidium PCR Not Detected (NotDetected); Cyclospora cayetanensis PCR Not Detected (NotDetected); Entamoeba histolytica PCR Not Detected (NotDetected); Enteroaggregative E.coli(EAEC) Not Detected (NotDetected); Enteropathogenic E.coli (EPEC) Not Detected (NotDetected); Enterotoxigenic E.coli (ETEC) Not Detected (NotDetected); Giardia lamblia PCR Not Detected (NotDetected); Norovirus GI/GII PCR Not Detected (NotDetected); Plesiomonas shigelloides PCR Not Detected (NotDetected); Rotavirus A PCR Not Detected (NotDetected); Salmonella PCR Not Detected (NotDetected); Sapovirus PCR Not Detected (NotDetected); Shiga-like Toxin E.coli (STEC) Not Detected (NotDetected); Shigella/Enteroinvasive E.coli Not Detected (NotDetected); Vibrio cholerae PCR Not Detected (NotDetected); Vibrio species PCR Not Detected (NotDetected); Yersinia enterocolitica PCR Not Detected (NotDetected)
[2024-10-28 23:05] VITALS: RESP 18
[2024-10-29 06:29] LABS: Hemoglobin 11.5 g/dl (14.0-18.0); Mean Corpuscular Hemoglobin 29.9 pg (25.0-34.0); Mean Corpuscular Hgb Conc 33.8 g/dL (32.0-36.0); Mean Corpuscular Volume 88.3 fL (80.0-100.0); Platelet Count 232 K/uL (130-400); RDW Coefficient of Variation 14.8 % (11.5-14.5); RDW Standard Deviation 47.9 fL (36.4-46.3); Red Blood Count 3.85 M/uL (4.70-6.10); White Blood Count 6.49 K/ul (4.8-10.8)
[2024-10-29 07:04] LABS: BUN Creatinine Ratio 22.8 (10-20); Creatinine Clr Calc Pharmacy 62.1 ml/min; Potassium 3.6 mmol/L (3.5-5.1)
--- NOTE | 2024-10-29 11:11 | Discharge Summary ---
Date of Service October 29, 2024 Admission HPI Per Admitting Provider This is an 84 y/o male with history of CVA with right hemiplegia, HTN, CKD3, atrial fibrillation, prior PE, hyperlipidemia, and other history as outlined below who presents to the ED with profound weakness and possible UTI. History is obtained from the patient and his daughter at the bedside, with whom he lives. Pt was in his usual state of health on Tuesday (five days ago) but on Tuesday, his daughter noticed an abrupt change, specifically significant weakness. He is typically fairly independent with ADLs and uses a walker to ambulate. However, on Tuesday, he was unable even to get out of bed. His daughter also noticed that his urine was very dark and foul-smelling. On Tuesday, she called into the PCP office regarding his symptoms and pt was prescribed a course of cephalexin for presumed UTI. He has been taking this for two days now. Initially, he seemed to improve slightly but now again barely able to get out of bed. He did attempt but "crumpled to the ground" and was unable to get up on his own. His oral intake has been limited over the last few days - his daughter reports he is eating very little. He denies nausea or vomiting but simply isn't hungry. Since starting the cephalexin, he has developed diarrhea with episodes of incontinence. He has not had any documented fevers but his daughter reports he felt hot to her earlier today. She notes that he has been intermittently more lethargic. His right arm has also been numb at times this week and "harder to use" than his baseline hemiplegia. Outpatient PCP notes reviewed for events of this week, prior history. Admission Exam Per Admitting Provider General: awake, alert, NAD HEENT: PERRL, tongue midline, no facial asymmetry, dry oral mucosa, +thrush Neck: supple, trachea midline Heart: RRR Lungs: CTA bilaterally on the anterior Abdomen: soft, NT, +BS Extremities: no pedal edema Skin: warm, dry, no jaundice Neurologic: moving all extremities but strength in RLE 4/5 with hip/knee extension, LLE 5/5, right interactive multimedia designer strength slightly less than left interactive multimedia designer Principal Diagnosis Acute complicated UTI Generalized weakness Fall Oral thrush Loose stool, likely viral gastroenteritis Discharge Exam General: awake, alert, NAD. Appears frail/weak/chronically ill. HEENT: PERRL, tongue midline, no facial asymmetry, moist oral mucosa, +thrush - improving Neck: supple, trachea midline Heart: RRR Lungs: CTA bilaterally on the anterior Abdomen: soft, NT, +BS Extremities: no pedal edema Skin: warm, dry, no jaundice Neurologic: moving all extremities. Discharge Data Allergies Allergy/AdvReac Type Severity Reaction Status Date / Time No Known Allergies Allergy Verified 12/04/23 19:59 Consultations 10/27/24 14:04 ED Decision to Admit Stat Ordered Studies 10/27/24 14:27 CT head/brain wo con Stat Hospital Course (1) UTI (urinary tract infection): (2) Acute dehydration: (3) Weakness: (4) Atrial fibrillation: (5) CKD (chronic kidney disease) stage 3, GFR 30-59 ml/min: (6) History of CVA (cerebrovascular accident): (7) Hypertension: Plan 84-year-old male with PMH of HLD, CVA/right hemiplegia currently ambulates with walker, HTN, CKD stage III, A-fib, pulmonary embolism, amputation of left great toe who lives at home with his daughter presented to the ED with complaint of progressive weakness since last few days associated with foul smelling/scant urine. 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 Hence patient was brought to the ED. He was managed for the following: Acute complicated urinary tract infection, partially treated at presentation Generalized weakness Fall On Keflex for 2 days prior to arrival, continue with Rocephin 10/27, c/w probiotic, follow admitting urine and blood culture. CT H w/ no acute findings, b/l knee xray w/ no fracture. PT/OT recs is Home w/ HH Pt takes pureed diet at home, c/w puree appreciate speech recs. Oral thrush: pt w/ no pain. nystatin luxembourger and spit. improving. c/w for 7 days on dc. Loose stools, likely viral gastroenteritis: noted scant loose stool 3 d ago DIRECTOR OF [employer]UE, 2 large diarrhea on the day of arrival. Resp biofire neg, stool pcr and c diff neg. c/w probiotic. Diarrhea has been resolving one bm yesterday and one today so far. Other chronic medical conditions: History of CVA: Speaks slowly and somewhat difficult to understand fashion. Continue with home statin and Eliquis. History of A-fib: Continue home metoprolol and Eliquis. History of hypertension: Continue home amlodipine, lisinopril and metoprolol. History of BPH: Continue home Flomax DVT prophylaxis: Patient on Eliquis Disposition: Medical floor, PT/OT consult. Full code Patient's daughter was at bedside who was updated on plan of care, she reports t hat patient is close to back to his baseline. She would like to take him home. Patient is hemodynamically stable and feels better, he is being discharged with following instructions at the point of discharge: Follow-up with your primary care physician within a week time and likely you will need labs CBC/CMP/magnesium/phosphorus. You will be discharged on antibiotic to complete the course for UTI. Probiotics will be added. Continue with physical therapy at home. Your blood culture has been no growth so far, follow-up with final results of your blood culture when you visit your PCP office within a week time upon discharge. Take your medications as prescribed. Please make sure that you are able to get your medications today by calling your pharmacy before you leave the hospital so that your treatment continuity is not broken. Home Health Attestation I certify that this patient is under my care and that I, or a physicians camp assistant working with me, had a face to-face encounter that meets the home health [id number] encounter requirements with this patient. The encounter with the patient was in whole, or in part, for the following medical condition, which is the primary reason for home health care (list medical condition): I certify that, based on my findings, the following services are medically necessary home health services: My clinical findings support the need for the above services because: Further, I certify that my clinical findings support that this patient is homebound (i.e. absences from home require considerable and taxing effort and are for medical reasons or bahai services or infrequently or of short duration when for other reasons) because: Certification for Home Health Services: Based on the above findings, I certify that this patient is confined to the home and needs intermittent jail care, physical therapy and/or speech therapy or continues to need occupational therapy. The patient is under my care, and I have initiated the establishment of the plan of care. This patient will be followed by a physician who will periodically review the plan of care. Total Time Total Time Spent Total Time Spent (In Minutes): 35 Discharge Plan Discharge Items Patient Disposition: Home - Home Health Services Reason For Visit: DEHYDRATION,WEAKNESS Discharge Diagnosis: Acute complicated UTI Generalized weakness Fall Oral thrush Loose stool, likely viral gastroenteritis Condition on Discharge: Fair Activity: As commented below Activity Comment: c/w HH Non-emergency contact: Primary Care Provider Call non-emergency contact if: you have any medication questions and your symptoms worsen Follow-up/Referrals: Tacho Dorsey MD [Primary Care Provider] - Diet: Regular Diet Texture: Pureed (blended smooth) Liquid Consistency: [place] thick Addtl Attending Provider Instructions: Follow-up with your primary care physician within a week time and likely you will need labs CBC/CMP/magnesium/phosphorus. You will be discharged on antibiotic to complete the course for UTI. Probiotics will be added. Continue with physical therapy at home. Your blood culture has been no growth so far, follow-up with final results of your blood culture when you visit your PCP office within a week time upon discharge. Take your medications as prescribed. Please make sure that you are able to get your medications today by calling your pharmacy before you leave the hospital so that your treatment continuity is not broken. Pending Studies at Discharge: Yes Stand-Alone Forms: My [facility], Smoking Cessation Medications and DC Order Prescriptions: New cefdinir 300 mg capsule 300 mg PO BID 4 Days Qty: 8 0RF Advanced Probiotic 625 mg (10 billion cell) Capsule 1 cap PO DAILY 7 Days Qty: 7 0RF nystatin 100,000 unit/mL Suspension 5 ml PO QID 7 Days Qty: 250 0RF Continued lisinopril 20 mg tablet 20 mg PO QAM amlodipine 5 mg tablet 5 mg PO QAM simvastatin 20 mg tablet 20 mg PO HS Eliquis 5 mg tablet 5 mg PO Q12H Qty: 60 0RF metoprolol tartrate 25 mg Tablet 12.5 mg PO BID Qty: 60 0RF tamsulosin 0.4 mg capsule 0.4 mg PO QAM pantoprazole [Protonix] 40 mg tablet,delayed release (DR/EC) 40 mg PO DAILY Qty: 30 0RF Discontinued cephalexin 500 mg capsule 500 mg PO BID Discharge Orders: Discharge Order (Routine); Ordered 10/29/24 Ordered By: Jesse Long Admission Data Admit Date/Time: 10/27/24 14:34 Attending Provider: Jesse Long Admit Provider: Sundeep Reece Primary Care Provider: Tacho Dorsey Other Providers: Sundeep Reece
[2024-10-29 11:24] VITALS: BP 103/59; TEMP 97.5; O2SAT 96
[2024-10-29] MEDS: POTASSIUM CHLORIDE CRTAB 20 MEQ TABCR PO STA (11:46)
[2024-10-29 17:56] VITALS: PULSE 63
--- NOTE | 2024-10-29 21:52 | Electrocardiogram Report ---
Test Reason : Blood Pressure : */* mmHG Vent. Rate : 76 BPM Atrial Rate : 76 BPM P-R Int : 146 ms QRS Dur : 94 ms QT Int : 408 ms P-R-T Axes : 28 -47 38 degrees QTcB Int : 459 ms Sinus rhythm with occasional Premature ventricular complexes Left axis deviation Incomplete right bundle branch block Septal infarct , age undetermined Abnormal ECG When compared with ECG of 05-Dec-2023 07:32, Premature ventricular complexes are now Present Incomplete right bundle branch block is now Present Septal infarct is now Present Confirmed by Dale Stearns ([id number]) on 10/29/2024 9:52:11 PM Referred By: Confirmed By: Dale Stearns
== END 2024-10-29 17:56 | disposition home health service (06) | DRG 690 ==
LOC: ED 10:50 → EDINP 14:34 → SUATTDRO 14:34 → 2W 18:39

== ENCOUNTER 2024-11-01 20:57 | Inpatient (IN) ==
[2024-11-01 22:08] LABS: Basophils # (auto) 0.04 K/uL (0.00-0.20); Basophils % (auto) 0.7 %; Eosinophils # (auto) 0.11 K/uL (0.00-0.50); Eosinophils % (auto) 1.8 %; Hematocrit (blood only) 38.4 % (42.0-52.0); Immature Granulocytes # (auto) 0.06 K/uL (0.01-0.20); Lymphocytes # (auto) 1.17 K/uL (1.20-3.40); Lymphocytes % (auto) 19.5 %; Mean Corpuscular Hemoglobin 30.7 pg (25.0-34.0); Mean Corpuscular Hgb Conc 33.9 g/dL (32.0-36.0); Mean Corpuscular Volume 90.6 fL (80.0-100.0); Mean Platelet Volume 9.1 fL (9.4-12.4); Monocytes # (auto) 0.82 K/uL (0.11-0.59); Monocytes % (auto) 13.7 %; Neutrophils # (auto) 3.79 K/uL (1.40-6.50); Neutrophils % (auto) 63.3 %; Platelet Count 291 K/uL (130-400); RDW Coefficient of Variation 14.7 % (11.5-14.5); RDW Standard Deviation 49.1 fL (36.4-46.3); Red Blood Count 4.24 M/uL (4.70-6.10); White Blood Count 5.99 K/ul (4.8-10.8)
[2024-11-01 22:21] LABS: Alanine Aminotransferase 12 U/L (7-52); Albumin Level 3.3 gm/dl (3.4-5.0); Alkaline Phosphatase 115 U/L (34-104); Anion Gap 7 (3-11); Aspartate Aminotransferase 15 U/L (13-39); BUN Creatinine Ratio 14.9 (10-20); Bilirubin,Total 0.5 mg/dl (0.2-1.0); Blood Urea Nitrogen 13 mg/dl (6-23); Calcium 8.3 mg/dl (8.6-10.3); Carbon Dioxide 27 mmol/L (21-32); Chloride 105 mmol/L (98-107); Creatine Kinase 47 U/L (30-223); Glucose 107 mg/dl (70-99(Fasting)); Magnesium 2.1 mg/dl (1.7-2.4); Potassium 4.1 mmol/L (3.5-5.1); Sodium 139 mmol/L (136-145); Total Protein 6.4 gm/dl (6.0-8.3)
[2024-11-01 22:30] LABS: Adenovirus PCR Not Detected (NotDetected); Bordetella parapertussis PCR Not Detected (NotDetected); Bordetella pertussis PCR Not Detected (NotDetected); Chlamydia pneumoniae PCR Not Detected (NotDetected); Coronavirus 229E PCR Not Detected (NotDetected); Coronavirus CoV-2 (COVID19)PCR DETECTED (NotDetected); Coronavirus HKU1 PCR Not Detected (NotDetected); Coronavirus NL63 PCR Not Detected (NotDetected); Coronavirus OC43PCR Not Detected (NotDetected); Human Metapneumovirus PCR Not Detected (NotDetected); Influenza A PCR Not Detected (NotDetected); Influenza B PCR Not Detected (NotDetected); Mycoplasma pneumoniae PCR Not Detected (NotDetected); Parainfluenza Virus 1 PCR Not Detected (NotDetected); Parainfluenza Virus 2 PCR Not Detected (NotDetected); Parainfluenza Virus 3 PCR Not Detected (NotDetected); Parainfluenza Virus 4 PCR Not Detected (NotDetected); Respiratory Syncytial VirusPCR Not Detected (NotDetected); Rhinovirus/Enterovirus PCR Not Detected (NotDetected)
[2024-11-01] MEDS: SODIUM CHLORIDE 0.9% 500 ML IV ONE (22:42)
[2024-11-01] MEDS: OPTIRAY 320 125ml IV ONE (23:15)
--- OUTSIDE RECORDS SUMMARY | 2024-11-02 00:02 | External Medical Summary | Summary of Care ---
Author Name Unknown Organization [facility] Address [address] [place] [address] Phone [phone] Care Team Providers Care Spindle Frame Carver Name Role Phone Tacho Dorsey MD Primary Care Provider [phone]- [phone] Reason for Visit * Reason Onset Date Comments Home Health 10/30/2024 Encounter Details Date Type Department Care Team (Late st Contact Info) Description 10/30/2024 Telephone [facility] [address] [place] [phone] Tacho Dorsey MD [address] [place] [address] Home Health Allergies No known active allergiesdocumented as of this encounter (statuses as of 10/30/2024) Medications amLODIPine Besylate 5 MG Oral Tablet [...] as of this encounter (statuses as of 10/30/2024) Active Problems Problem Noted Date Diagnosed Date [...] as of this encounter (statuses as of 10/30/2024) Resolved Problems Problem Noted Date Diagnosed Date [...] infarction 8 08/30/2017 Venous 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/2017 group home current use of ant icoagulant therapy [...] as of this encounter (statuses as of 10/30/2024) Immunizations Name Administration Dates Next Due COVID-19 [...] encounter Miscellaneous Notes * Telephone Encounter - Lynn Stephen LPN - 10/30/2024 4:01 PM EST ISABELLE Adair calling from [facility] Changing start of care date to 11/02/2024 due to daughters preference. Will fax order for signature. documented in this encounter Plan of Treatment Upcoming Encounters Date Type Department Care Team (Late st Contact Info) Description 11/05/2024 1:20 PM EST Office Visit Mirela Stokes [address] [phone] George Cueto PA-C [address] [place] [address] 05/17/2025 10:40 AM EDT Office Visit Mirela Stokes [address] [place] [phone] Tacho Dorsey MD [address] [place] [id number] Health Maintenance Due Date Last Done Comments Adult Wellness Visit 10/03/2020 10/03/2019 DTap/Tdap Vaccines (2 - Td or Tdap) 01/09/2023 01/09/2013 CKD PHOS USE SMARTSET 56169 09/06/202308/18, 07/28/2021, 07/31/2020, Additional history exists COVID-19 Vaccine ( season) 2024 09/02/2021, 01/16/2021, 12/26/2020 Depression Screening 12/09/2024 12/09/2023 Albumin/Creatinine Ratio 05/17/2025 05/17/2024, 08/18 CKD HGB USE SMARTSET 22156 05/17/202505/17, 05/17/2024, 07/19/2023, Additional history exists Pneumococcal Vaccine: 50+ Years Completed 08/25/2015, 07/31/2008 Influenza Vaccine (FLU shot) Completed 10/28/2024, 09/20/2023, 09/06/2022, Additional history exists HPV (Gardasil) Vaccine Aged Out No lo [...] filedocumented as of this encounter Care Teams Spindle Frame Carver Relationship Specialty Start Date End Date Tacho Dorsey MD PCP - General 09/16/08 documented as of this encounter
--- OUTSIDE RECORDS SUMMARY | 2024-11-02 00:02 | External Medical Summary | Summary of Care ---
Author Name Unknown Organization [facility] Address [address] [place] [address] Phone [phone] Care Team Providers Care Pest Control Technician Name Role Phone Tacho Dorsey MD Primary Care Provider [phone]- [phone] Encounter Details Date Type Department Care Team (Late st Contact Info) Description 10/30/2024 Population Health External Data Unspecified Department Allergies [...] infarction 8 08/30/2017 Venous 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/2017 correction current use of ant icoagulant therapy 09/04/2008 [...] Description 11/05/2024 1:20 PM EST [facility] [address] [phone] George Cueto PA-C [address] [place] [address] 05/17/2025 10:40 AM EDT Office Visit [facility] Mirela Riley [address] [phone] Tacho Dorsey MD [address] [place] [address] Health Maintenance Due Date Last Done Comments Adult Wellness Visit 10/03/2020 10/03/2019 DTap/Tdap Vaccines (2 - Td or Tdap) 01/09/2023 01/09/2013 CKD PHOS USE SMARTSET 13069 09/06/2023/10/2021, 07/28/2021, 07/31/2020, Additional history exists COVID-19 Vaccine ( season) 2024 09/02/2021, 01/16/2021, 12/26/2020 Influenza Vaccine (FLU shot) (#1) 2024 10/28/2024, 09/20/2023, 09/06/2022, Additional history exists Depression Screening 12/09/2024 12/09/2023 Albumin/Creatinine Ratio 05/17/2025 05/17/2024, 08/18 CKD HGB USE SMARTSET 99286 05/17/202505/17, 05/17/2024, 07/19/2023, Additional history exists Pneumococcal [...] filedocumented as of this encounter Care Teams Pest Control Technician Relationship Specialty Start Date End Date Tacho Dorsey MD PCP - General 09/16/08 documented as of this encounter
--- NOTE | 2024-11-02 00:18 | XRay Report ---
Exam(s): XR CXR 1 VIEW EXAM: XR Chest, 1 View CLINICAL HISTORY: Reason for exam: Sepsis. TECHNIQUE: Frontal view of the chest. COMPARISON: 10/27/2024. FINDINGS: Heart is enlarged. No CHF. Right basilar ill-defined atelectasis. Right basilar scarring versus platelike atelectasis. No pleural effusion or pneumothorax. Bones are unchanged. IMPRESSION: No significant interval change. Electronically signed by: Adriel Brown M.D. 11/02/24 00:17 AM
--- NOTE | 2024-11-02 00:50 | Emergency Department Note ---
ED Visit Note I was consulted by the Advanced Practice Provider, Kimi Francis PA-C. I performed a substantive portion of the visit. This includes aspects of: History: Patient is an 84-year-old male presenting with concern for dehydration. Patient has had a cough and diarrhea since yesterday. Patient complaining of generalized weakness and diarrhea. Denies any chest pain or shortness of breath. MDM: - Laboratory workup interpreted by myself showed normal WBC; normal lactate; stable electrolytes; normal troponin; normal CK; normal procalcitonin - CXR negative for pneumonia, per my interpretation - Viral respiratory panel positive for COVID-19. - CT PE negative for PE. Noted to have a small pericardial effusion. - CT abdomen/pelvis with IV contrast obtained. - Patient given 500 cc NS in ER. - Patient reports feeling too weak to go home. Will be admitted to hospitalist service for further evaluation. .
--- NOTE | 2024-11-02 00:59 | CT Scan Report ---
Exam(s): CTA CHEST IV Amt: 120 cc opti 320 EXAM: CT Angiography Chest With Intravenous Contrast CLINICAL HISTORY: PE. TECHNIQUE: Axial computed tomographic angiography images of the chest with intravenous contrast. CTDI is 21.54 mGy and DLP is 2228.73 mGy-cm. Automated exposure control was utilized for the study. A dose lowering technique was utilized adhering to the principles of ALARA. 3D and MIP reconstructed images were created and reviewed. COMPARISON: CXR 11/01/2024. FINDINGS: Study is limited by patient motion. Pulmonary arteries: No pulmonary embolism. Aorta: No thoracic aortic aneurysm or dissection. Atherosclerotic vascular calcifications. Lungs: Multifocal linear parenchymal changes greatest in the right lower lobe consistent with platelike atelectasis versus scarring. Dependent atelectasis bilaterally. Mild bronchiectasis with peribronchial thickening consistent with bronchitis. Small ill-defined parenchymal densities in lung apices, right greater than left, consistent with scarring. Pleural space: No pleural effusion. No pneumothorax. Heart: No cardiomegaly. Small pericardial effusion. No evidence of RV dysfunction. Coronary artery calcifications. Bones/joints: No acute fracture. Soft tissues: Unremarkable. Lymph nodes: Unremarkable. No enlarged lymph nodes. IMPRESSION: No pulmonary embolism. Predominately basilar platelike atelectasis and scarring. No focal consolidation. Atherosclerotic vascular calcifications. Small pericardial effusion. Electronically signed by: Adriel Brown M.D. 11/02/24 00:58 AM
--- NOTE | 2024-11-02 01:03 | Emergency Department Note ---
History of Present Illness General Chief complaint: Illness Stated complaint: FEELS SICK, HAS A COLD, WEAK Time Seen by Provider: 11/01/24 21:49 History of Present Illness This 84-year-old male who was recently discharged in the hospital for dehydration and UTI presents ER feeling dehydrated and more weak. He also has diarrhea now. He is on Omnicef. No well water. Patient was too weak to care for himself and the daughter was concerned and brought him in. Patient also complains of cough and congestion. He denies chest pain, headache, neck stiffness, sore throat, vomiting. Home Medications Medication Instructions Recorded Confirmed Type amlodipine 5 mg tablet 5 mg PO QAM 10/10/19 11/01/24 History lisinopril 20 mg tablet 20 mg PO QAM 10/10/19 11/01/24 History simvastatin 20 mg tablet 20 mg PO HS 10/10/19 11/01/24 History metoprolol tartrate 25 mg tablet 12.5 mg (1/2 x 25 mg) PO BID #60 03/16/23 11/01/24 Rx tabs tamsulosin 0.4 mg capsule 0.4 mg PO QAM 12/04/23 11/01/24 History L.acidop,casei,lactis,rham-B.lact,aniya 1 cap PO DAILY 1 week #7 caps 10/29/24 11/01/24 Rx 625 mg (10 billion cell) capsule (Advanced Probiotic) cefdinir 300 mg capsule 300 mg PO BID 4 days #8 caps 10/29/24 11/01/24 Rx nystatin 100,000 unit/mL oral 5 ml PO QID 7 days #250 mL 10/29/24 11/01/24 Rx suspension apixaban 5 mg tablet (Eliquis) 5 mg PO AMHS 11/01/24 11/01/24 History Allergies Allergy/AdvReac Type Severity Reaction Status Date / Time No Known Allergies Allergy Verified 12/04/23 19:59 Past Med/Surg History Problem List (Updated 11/02/24 @ 01:05 by Kimi Francis PA-C) Acute diarrhea (Acute) Weakness (Acute) COVID-19 (Acute) UTI (urinary tract infection) Fall (Acute) Acute dehydration (Acute) Weakness (Acute) Medical History Osteomyelitis CKD (chronic kidney disease) stage 3, GFR 30-59 ml/min Atrial fibrillation DVT (deep venous thrombosis) Pulmonary emboli Hypertension History of CVA (cerebrovascular accident) TIA (transient ischemic attack) Nausea vomiting and diarrhea Pulmonary embolism Surgical History No pertinent past surgical history Family History Other Family history non-contributory Social History Smoking Status: Never smoker Second Hand Exposure: No; Do You Dip or Chew Tobacco: No; Hx Alcohol Use: No Hx Substance Use: No Preferred Language: [place] 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 Ability: Effective 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 Ability Comment: speech garbled - per [facility]gh r/t not wearing dentures, able to understand pt Commercial Administrator Required: No Beliefs That Will Affect Care: None Current Living Situation: Family Current Living Situation Comment: Lives with dgh & son-in-law Feels Safe at Home: Yes Assistive Devices: Walker and Other Review of Systems A total of 10 systems reviewed and were otherwise negative Physical Exam Vital Signs Vital Signs - 24 hr 11/01/24 21:02 11/01/24 21:12 11/01/24 21:21 Temperature 36.4 C L Temperature Source Oral Pulse Rate 76 68 63 Pulse Rate [Apical] Pulse Rate from SpO2 Sensor 63 Respiratory Rate 16 17 Respiratory Effort / Characteristics Respiratory Depth Normal Respiratory Pattern Blood Pressure 129/76 124/78 Blood Pressure [Left Arm] Blood Pressure Mean 93 93 Blood Pressure Mean [Left Arm] Pulse Oximetry 100 96 Oxygen Delivery Method Room Air Sepsis Recent Fever Within 48 Hours No Sepsis New/Unexplained Change in Mental Status No Sepsis Action Taken by Nursing No Action Required 11/01/24 21:30 11/01/24 22:20 11/01/24 22:21 Temperature Temperature Source Pulse Rate 66 Pulse Rate [Apical] Pulse Rate from SpO2 Sensor Respiratory Rate 19 Respiratory Effort / Characteristics Respiratory Depth Respiratory Pattern Blood Pressure 133/69 118/64 Blood Pressure [Left Arm] Blood Pressure Mean 79 84 Blood Pressure Mean [Left Arm] Pulse Oximetry 94 Oxygen Delivery Method Room Air Sepsis Recent Fever Within 48 Hours Sepsis New/Unexplained Change in Mental Status Sepsis Action Taken by Nursing 11/01/24 22:38 11/01/24 22:44 11/01/24 23:00 Temperature Temperature Source Pulse Rate 61 60 65 Pulse Rate [Apical] Pulse Rate from SpO2 Sensor 64 Respiratory Rate 15 13 20 Respiratory Effort / Characteristics Respiratory Depth Respiratory Pattern Blood Pressure 95/58 L 111/58 L 99/68 L Blood Pressure [Left Arm] Blood Pressure Mean 70 75 73 Blood Pressure Mean [Left Arm] Pulse Oximetry 96 Oxygen Delivery Method Sepsis Recent Fever Within 48 Hours Sepsis New/Unexplained Change in Mental Status Sepsis Action Taken by Nursing 11/01/24 23:30 11/02/24 00:30 11/02/24 01:15 Temperature Temperature Source Pulse Rate 61 Pulse Rate [Apical] 65 62 Pulse Rate from SpO2 Sensor Respiratory Rate 20 22 Respiratory Effort / Characteristics Non-Labored Spontaneous Non-Labored Spontaneous Respiratory Depth Normal Normal Respiratory Pattern Regular Blood Pressure Blood Pressure [Left Arm] 143/68 H 151/73 H Blood Pressure Mean Blood Pressure Mean [Left Arm] 93 99 Pulse Oximetry 94 93 Oxygen Delivery Method Room Air Room Air Sepsis Recent Fever Within 48 Hours Sepsis New/Unexplained Change in Mental Status Sepsis Action Taken by Nursing VITALS: Vitals are noted on the nurse's note and reviewed by myself. Vital signs stable. GENERAL: Pleasant gentleman, in no acute distress, nondiaphoretic, well- developed well-nourished. SKIN: The skin was without rashes, erythema, edema, or bruising. There is no tenting of the skin. Capillary reflex less than 2 seconds. HEAD: Normocephalic atraumatic. EARS: External auditory canals clear EYES: Pupils equal round and reactive to light and accommodation. Conjunctivae without injection, sclerae without icterus. Extraocular movements intact. NOSE: Patent, no discharge. MOUTH: Mucous membranes mildly dry. Pharynx without erythema or exudate. Uvula midline. Airway patent. Tongue does not deviate. NECK: Supple without nuchal rigidity. No lymphadenopathy. No thyromegaly. Cervical spine is nontender. No JVD. HEART: Regular rate and rhythm LUNGS: Clear to auscultation bilaterally without wheezes, rales or rhonchi. No retractions or accessory muscle use. ABDOMEN: Positive bowel sounds x 4. Normal tympanic percussion. Soft, mild diffuse tenderness, without masses or organomegaly. Forrest sign negative. No guarding or rebound tenderness. No CVA tenderness MUSCULOSKELETAL: No muscle atrophy, erythema, or edema noted. NEURO: Patient was alert and oriented to person place and time. Normal sensation to light and sharp touch. No focal neurological deficits. Course Administered Medications Discontinued Medications Sodium Chloride (Nss) 500 mls @ 999 mls/hr IV .Q31M ONE Stop: 11/01/24 22:50 Last Infusion: 11/01/24 23:45 Dose: Infused Documented By: Admin: 11/01/24 22:42 Dose: 999 mls/hr Documented By: TERI Ioversol (Optiray 320 125ml) 120 ml IV ONCE ONE Stop: 11/01/24 23:16 Last Admin: 11/01/24 23:15 Dose: 120 ml Documented By: JOSE CARLOS Medical Decision Making Medical Records Attestation: I reviewed the patient's medical records. Home Medications Current Medication List: was personally reviewed by me Laboratory Data Attestation: I reviewed the patient's lab results. 11/01/24 21:28 11/01/24 21:28 Lab Results 11/01/24 11/01/24 Range/Units 21:28 22:24 WBC 5.99 (4.8-10.8) K/ul RBC 4.24 L (4.70-6.10) M/uL Hgb 13.0 L (14.0-18.0) g/dl Hct 38.4 L (42.0-52.0) % MCV 90.6 (80.0-100.0) fL MCH 30.7 (25.0-34.0) pg MCHC 33.9 (32.0-36.0) g/dL RDW Std Deviation 49.1 H (36.4-46.3) fL RDW Coeff of Renan 14.7 H (11.5-14.5) % Plt Count 291 (130-400) K/uL MPV 9.1 L (9.4-12.4) fL Immature Gran % (Auto) 1.0 % Neut % (Auto) 63.3 % Lymph % (Auto) 19.5 % [place] % (Auto) 13.7 % Eos % (Auto) 1.8 % Baso % (Auto) 0.7 % Neut # (Auto) 3.79 (1.40-6.50) K/uL Lymph # (Auto) 1.17 L (1.20-3.40) K/uL [place] # (Auto) 0.82 H (0.11-0.59) K/uL Eos # (Auto) 0.11 (0.00-0.50) K/uL Baso # (Auto) 0.04 (0.00-0.20) K/uL Immature Gran # (Auto) 0.06 (0.01-0.20) K/uL Sodium 139 (136-145) mmol/L Potassium 4.1 (3.5-5.1) mmol/L Chloride 105 (98-107) mmol/L Carbon Dioxide 27 (21-32) mmol/L Anion Gap 7 (3-11) BUN 13 (6-23) mg/dl Creatinine 0.87 (0.6-1.4) mg/dl Est Cr Clr Drug Dosing Not Reportable eGFR 84.03 BUN/Creatinine Ratio 14.9 (10-20) Glucose 107 H (70-99(Fasting)) mg/dl Lactate 1.2 (0.4-2.0) mmol/L Calcium 8.3 L (8.6-10.3) mg/dl Magnesium 2.1 (1.7-2.4) mg/dl Total Bilirubin 0.5 (0.2-1.0) mg/dl Direct Bilirubin 0.0 (0-0.2) mg/dl AST 15 (13-39) U/L ALT 12 (7-52) U/L Alkaline Phosphatase 115 H (34-104) U/L Total Creatine Kinase 47 (30-223) U/L Troponin I High Sens 5.0 (0-20) pg/ml B-Natriuretic Peptide 141 H (0-100) pg/ml Total Protein 6.4 (6.0-8.3) gm/dl Albumin 3.3 L (3.4-5.0) gm/dl Procalcitonin 0.11 (0-0.5) ng/ml Adenovirus (PCR) Not Detected (NotDetected) B. pertussis DNA (PCR) Not Detected (NotDetected) B.parapertussis DNA PCR Not Detected (NotDetected) C. pneumoniae DNA (PCR) Not Detected (NotDetected) Coronavirus OC43 (PCR) Not Detected (NotDetected) Coronavirus HKU1 (PCR) Not Detected (NotDetected) Coronavirus 229E (PCR) Not Detected (NotDetected) SARS-CoV-2 (PCR) DETECTED A (NotDetected) Coronavirus NL63 (PCR) Not Detected (NotDetected) Human Metapneumovir PCR Not Detected (NotDetected) Influenza Type A (PCR) Not Detected (NotDetected) Influenza Type B (PCR) Not Detected (NotDetected) M. pneumoniae (PCR) Not Detected (NotDetected) Parainfluenza 1 (PCR) Not Detected (NotDetected) Parainfluenza 2 (PCR) Not Detected (NotDetected) Parainfluenza 3 (PCR) Not Detected (NotDetected) Parainfluenza 4 (PCR) Not Detected (NotDetected) RSV (PCR) Not Detected (NotDetected) Entero/Rhino (PCR) Not Detected (NotDetected) Imaging Data Attestation: I personally reviewed and interpreted this imaging study as follows: Radiologist's Impression: Chest X-Ray 11/01/24 21:51 Exam(s): XR CXR 1 VIEW EXAM: XR Chest, 1 View CLINICAL HISTORY: Reason for exam: Sepsis. TECHNIQUE: Frontal view of the chest. COMPARISON: 10/27/2024. FINDINGS: Heart is enlarged. No CHF. Right basilar ill-defined atelectasis. Right basilar scarring versus platelike atelectasis. No pleural effusion or pneumothorax. Bones are unchanged. IMPRESSION: No significant interval change. Electronically signed by: Adriel Brown M.D. 11/02/24 00:17 AM Abdomen/Pelvis CT 11/01/24 22:20 Exam(s): CT ABDOMEN + PELVIS With Contrast IV Amt: 120 cc opti 320 EXAM: CT Abdomen and Pelvis With Intravenous Contrast CLINICAL HISTORY: abd pain, D, weakness. TECHNIQUE: Axial computed tomography images of the abdomen and pelvis with intravenous contrast. CTDI is 21.54 mGy and DLP is 2228.73 mGy-cm. Automated exposure control was utilized for the study. A dose lowering technique was utilized adhering to the principles of ALARA. CONTRAST: Patient received 120 cc opti 320 of IV contrast COMPARISON: No relevant prior studies available. FINDINGS: Lung bases: Small pericardial effusion. Minimal right pleural fluid. No mass. No consolidation. ABDOMEN: Liver: Normal size. Multiple scattered hypodense lesions throughout the liver too small to characterize. Gallbladder and bile ducts: Well distended. Minimal probable gallbladder sludge or small gallstones. No ductal dilation. Pancreas: Unremarkable. No mass. No ductal dilation. Spleen: Probable cyst in the posterior aspect of the spleen. No splenomegaly. Adrenals: Unremarkable. No mass. Kidneys and ureters: Bilateral renal cortical cysts. No obstructive uropathy. No obstructing renal or ureteral calculi. No hydronephrosis or hydroureter. Stomach and bowel: No obstruction or ileus. Nonspecific air-fluid levels bowel. No evidence for diverticulitis. Distal rectal wall thickening. PELVIS: Appendix: Appendix not identified. No secondary evidence for appendicitis. Bladder: Partially contracted with nonspecific wall thickening. No mass. Reproductive: Prominent 4.9 x 4.2 cm prostate gland. ABDOMEN and PELVIS: Intraperitoneal space: No free air. No free fluid. Bones/joints: No acute fracture. Degenerative changes of the spine. Soft tissues: Bilateral fat-containing inguinal hernias. Vasculature: Infrarenal IVC filter. No abdominal aortic aneurysm. Atherosclerotic vascular calcifications. Lymph nodes: Unremarkable. No enlarged lymph nodes. IMPRESSION: Nonspecific air-fluid levels in nondilated small and large bowel. No definite bowel obstruction or ileus. Distal rectal wall thickening, possibly proctitis. Multiple scattered hypodense lesions throughout the liver too small to characterize. Probable renal and spleen cysts. Partially contracted urinary bladder wall thickening with wall thickening, possibly related to prominent prostate gland. Minimal gallbladder sludge or gallstones. Senescent changes. Electronically signed by: Adriel Brown M.D. 11/02/24 01:08 AM Chest CTA 11/01/24 22:20 Exam(s): CTA CHEST IV Amt: 120 cc opti 320 EXAM: CT Angiography Chest With Intravenous Contrast CLINICAL HISTORY: PE. TECHNIQUE: Axial computed tomographic angiography images of the chest with intravenous contrast. CTDI is 21.54 mGy and DLP is 2228.73 mGy-cm. Automated exposure control was utilized for the study. A dose lowering technique was utilized adhering to the principles of ALARA. 3D and MIP reconstructed images were created and reviewed. COMPARISON: CXR 11/01/2024. FINDINGS: Study is limited by patient motion. Pulmonary arteries: No pulmonary embolism. Aorta: No thoracic aortic aneurysm or dissection. Atherosclerotic vascular calcifications. Lungs: Multifocal linear parenchymal changes greatest in the right lower lobe consistent with platelike atelectasis versus scarring. Dependent atelectasis bilaterally. Mild bronchiectasis with peribronchial thickening consistent with bronchitis. Small ill-defined parenchymal densities in lung apices, right greater than left, consistent with scarring. Pleural space: No pleural effusion. No pneumothorax. Heart: No cardiomegaly. Small pericardial effusion. No evidence of RV dysfunction. Coronary artery calcifications. Bones/joints: No acute fracture. Soft tissues: Unremarkable. Lymph nodes: Unremarkable. No enlarged lymph nodes. IMPRESSION: No pulmonary embolism. Predominately basilar platelike atelectasis and scarring. No focal consolidation. Atherosclerotic vascular calcifications. Small pericardial effusion. Electronically signed by: Adriel Brown M.D. 11/02/24 00:58 AM [facility] Narrative Prior records/ancillary studies reviewed and summarized above. Nursing notes reviewed. Additional history obtained from family The patient's history was concerning for weakness, diarrhea and generalized illness. Differential diagnosis: Etiologies such as metabolic, infection, hypo/hyperglycemia, electrolyte abnormalities, cardiac sources, intracerebral event, toxicologic, neurologic, as well as others were entertained. Physical examination: As above. ER treatment provided: IV Lock An order was placed for continuous cardiac monitoring. The monitor shows a rate of 60-100 with a sinus rhythm per my interpretation. IV fluids On reassessment the patient felt better. Diagnostics interpretation by me: ECG: Ordered for weakness EKG: Normal sinus, left axis, no acute ST-T wave changes. Impression normal sinus rhythm left axis deviation independently interpreted by myself The labs Independently Interpreted by myself revealed positive COVID. Stable H&H Blood cultures pending Imaging studies: Imaging is reviewed and read by radiology Consultation: A consultation was placed with the hospitalist. The case was discussed and diagnostics were reviewed. The patient was evaluated in the ER for further treatment. Exam and history seem consistent with COVID-pneumonia. Patient was too weak to go home. Medicine was consulted case is discussed. He will be evaluated for possible admission. By the evaluation outlined above emergent etiologies such as electrolyte abnormalities, cardiac sources, intracerebral event, toxologic, neurologic, abnormalities blood glucose, metabolic, as well as others were deemed relatively unlikely. The pt informed about the findings as listed above. All questions were answered and pleased with the treatment. The chart was completed utilizing [employer] voice recognition software. Grammatical errors, random word insertions, pronoun errors, and incomplete sentences are an occassional consequence of this system due to software limitations, ambient noise, and hardware issues. Any formal questions or concerns about the content, text, or information contained within the body of this dictation should be directly addressed to the physician assistant chief engineer for clarification. Impression & Plan COVID-19, Weakness, Acute diarrhea Discharge Plan Visit Data Chief Complaint: Illness Stated Complaint: FEELS SICK, HAS A COLD, WEAK ED Provider: Mounika Morgan ED Midlevel Provider: Kimi Francis Discharge Problem: COVID-19, Weakness, Acute diarrhea Patient Disposition: Admitted As Inpatient Condition: Fair Forms Stand Alone Forms: My [facility] Prescriptions Prescriptions: No Action lisinopril 20 mg tablet 20 mg PO QAM amlodipine 5 mg tablet 5 mg PO QAM simvastatin 20 mg tablet 20 mg PO HS metoprolol tartrate 25 mg Tablet 12.5 mg PO BID Qty: 60 0RF Eliquis 5 mg tablet 5 mg PO AMHS tamsulosin 0.4 mg capsule 0.4 mg PO QAM cefdinir 300 mg capsule 300 mg PO BID 4 Days Qty: 8 0RF Advanced Probiotic 625 mg (10 billion cell) Capsule 1 cap PO DAILY 7 Days Qty: 7 0RF nystatin 100,000 unit/mL Suspension 5 ml PO QID 7 Days Qty: 250 0RF Referrals Referrals: Tacho Dorsey MD [Primary Care Provider] -
--- NOTE | 2024-11-02 01:09 | CT Scan Report ---
Exam(s): CT ABDOMEN + PELVIS With Contrast IV Amt: 120 cc opti 320 EXAM: CT Abdomen and Pelvis With Intravenous Contrast CLINICAL HISTORY: abd pain, D, weakness. TECHNIQUE: Axial computed tomography images of the abdomen and pelvis with intravenous contrast. CTDI is 21.54 mGy and DLP is 2228.73 mGy-cm. Automated exposure control was utilized for the study. A dose lowering technique was utilized adhering to the principles of ALARA. CONTRAST: Patient received 120 cc opti 320 of IV contrast COMPARISON: No relevant prior studies available. FINDINGS: Lung bases: Small pericardial effusion. Minimal right pleural fluid. No mass. No consolidation. ABDOMEN: Liver: Normal size. Multiple scattered hypodense lesions throughout the liver too small to characterize. Gallbladder and bile ducts: Well distended. Minimal probable gallbladder sludge or small gallstones. No ductal dilation. Pancreas: Unremarkable. No mass. No ductal dilation. Spleen: Probable cyst in the posterior aspect of the spleen. No splenomegaly. Adrenals: Unremarkable. No mass. Kidneys and ureters: Bilateral renal cortical cysts. No obstructive uropathy. No obstructing renal or ureteral calculi. No hydronephrosis or hydroureter. Stomach and bowel: No obstruction or ileus. Nonspecific air-fluid levels bowel. No evidence for diverticulitis. Distal rectal wall thickening. PELVIS: Appendix: Appendix not identified. No secondary evidence for appendicitis. Bladder: Partially contracted with nonspecific wall thickening. No mass. Reproductive: Prominent 4.9 x 4.2 cm prostate gland. ABDOMEN and PELVIS: Intraperitoneal space: No free air. No free fluid. Bones/joints: No acute fracture. Degenerative changes of the spine. Soft tissues: Bilateral fat-containing inguinal hernias. Vasculature: Infrarenal IVC filter. No abdominal aortic aneurysm. Atherosclerotic vascular calcifications. Lymph nodes: Unremarkable. No enlarged lymph nodes. IMPRESSION: Nonspecific air-fluid levels in nondilated small and large bowel. No definite bowel obstruction or ileus. Distal rectal wall thickening, possibly proctitis. Multiple scattered hypodense lesions throughout the liver too small to characterize. Probable renal and spleen cysts. Partially contracted urinary bladder wall thickening with wall thickening, possibly related to prominent prostate gland. Minimal gallbladder sludge or gallstones. Senescent changes. Electronically signed by: Adriel Brown M.D. 11/02/24 01:08 AM
--- NOTE | 2024-11-02 02:19 | History & Physical Report ---
Date of Service November 02, 2024 Assessment & Plan (1) Weakness: Plan: 84 year-old male with past medical history significant for hyperlipidemia, history of CVA right hemiplegia currently ambulates with walker, hypertension, CKD stage III, A-fib, right foot drop, history of pulmonary embolism, history of amputation of left great toe, who lives at home with his daughter, ambulates with walker, and on soft diet but when he is sick on pured diet as per angela mcclellaner who was recently in the hospital for weakness and was treated for UTI discharged on 10/29/2024 comes back with weakness and found to COVID. Patient has history of stroke and somewhat difficult to understand. As per daughter last 2 nights patient had fever and was very weak not able to get up from the bed. Having poor appetite and started to have diarrhea again. Also having chills. He is also having lot of cough. When he is coughing he is getting short of breath as per daughter. Patient currently alert and oriented. Patient denies any headache. Denies chest pain. Currently denies shortness of breath. Denies nausea. Denies abdominal pain. Says he ambulates with a walker. Hemodynamics are okay currently. Weakness COVID Having cough CTA chest no PE and no pneumonia As per daughter patient was feeling short of breath at home Because of comorbid conditions we will do remdesivir and steroids Follow remdesivir labs COVID precautions Supportive care Close monitor Recent UTI Complete Omnicef course History of CVA/right hemiplegia Ambulates with a walker pureed Diet for now PT OT when stable Hypertension On amlodipine and lisinopril and metoprolol Will monitor History of A-fib On metoprolol and Eliquis History of PE On Eliquis Hyperlipidemia On statin BPH On Flomax CKD stage III Creatinine 0.8 Will follow labs DVT prophylaxis On Eliquis Disposition Med/telemetry CODE STATUS DNR/DNI as per my discussion with the daughter History of Present Illness Chief Complaint: Weakness Primary Care Provider: Tacho Dorsey MD 84 year-old male with past medical history significant for hyperlipidemia, history of CVA right hemiplegia currently ambulates with walker, hypertension, CKD stage III, A-fib, right foot drop, history of pulmonary embolism, history of amputation of left great toe, who lives at home with his daughter, ambulates with walker, and on soft diet but when he is sick on pured diet as per daughter who was recently in the hospital for weakness and was treated for UTI discharged on 10/29/2024 comes back with weakness and found to COVID. Patient has history of stroke and somewhat difficult to understand. As per daughter last 2 nights patient had fever and was very weak not able to get up from the bed. Having poor appetite and started to have diarrhea again. Also having chills. He is also having lot of cough. When he is coughing he is getting short of breath as per daughter. Patient currently alert and oriented. Patient denies any headache. Denies chest pain. Currently denies shortness of breath. Denies nausea. Denies abdominal pain. Says he ambulates with a walker. Hemodynamics are okay currently. Past medical history. As mentioned above Past surgical history. Colorectal cancer screening Social history. current lives with the daughter. No smoking. No alcohol use. No drug use. Family history. No family history on file Allergies Allergy/AdvReac Type Severity Reaction Status Date / Time No Known Allergies Allergy Verified 12/04/23 19:59 Home Medications Medication Instructions Recorded Confirmed Type amlodipine 5 mg tablet 5 mg PO QAM 10/10/19 11/01/24 History lisinopril 20 mg tablet 20 mg PO QAM 10/10/19 11/01/24 History simvastatin 20 mg tablet 20 mg PO 10/10/19 11/01/24 History metoprolol tartrate 25 mg tablet 12.5 mg (1/2 x 25 mg) PO BID #60 03/16/23 11/01/24 Rx tabs tamsulosin 0.4 mg capsule 0.4 mg PO QAM 12/04/23 11/01/24 History L.acidop,casei,lactis,rham-B.lact,aniya 1 cap PO DAILY 1 week #7 caps 10/29/24 11/01/24 Rx 625 mg (10 billion cell) capsule (Advanced Probiotic) cefdinir 300 mg capsule 300 mg PO BID 4 days #8 caps 10/29/24 11/01/24 Rx nystatin 100,000 unit/mL oral 5 ml PO QID 7 days #250 mL 10/29/24 11/01/24 Rx suspension apixaban 5 mg tablet (Eliquis) 5 mg PO AMHS 11/01/24 11/01/24 History Past Med/Surg History Problem List (Updated 11/02/24 @ 01:05 by Kimi Francis PA-C) Acute diarrhea (Acute) Weakness (Acute) COVID-19 (Acute) UTI (urinary tract infection) Fall (Acute) Acute dehydration (Acute) Weakness (Acute) Medical History Osteomyelitis CKD (chronic kidney disease) stage 3, GFR 30-59 ml/min Atrial fibrillation DVT (deep venous thrombosis) Pulmonary emboli Hypertension History of CVA (cerebrovascular accident) TIA (transient ischemic attack) Nausea vomiting and diarrhea Pulmonary embolism Surgical History No pertinent past surgical history Family History Other Family history non-contributory Social History Smoking Status: Never smoker Second Hand Exposure: No; Do You Dip or Chew Tobacco: No; Hx Alcohol Use: No Hx Substance Use: No Preferred Language: [place] 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 Ability: Effective 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 Ability Comment: speech garbled at baseline 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 ENT- oropharynx dry Neck- supple, no JVD. Lungs- clear to auscultation no wheezing or crackles Heart- regular rhythm; no murmur, no gallop. Abdomen- normal bowel sounds, soft, nontender, no distension Extremities- no pretibial edema, no erythema seen Neuro- alert, oriented PERRL, no facial palsy; pressured speech; moves extremities . Results & Data Results & Data Vital Signs (Past 12 Hours) Vital Signs Temp Pulse Pulse Resp BP BP Pulse Ox 11/02/24 01:30 61 20 135/65 93 11/02/24 01:15 61 11/02/24 00:30 62 22 151/73 H 93 11/01/24 23:30 65 20 143/68 H 94 11/01/24 23:00 65 20 99/68 L 96 11/01/24 22:44 60 13 111/58 L 11/01/24 22:38 61 15 95/58 L 11/01/24 22:21 66 19 118/64 11/01/24 22:20 94 11/01/24 21:30 133/69 11/01/24 21:21 63 17 124/78 96 11/01/24 21:12 68 11/01/24 21:02 36.4 C L 76 16 129/76 100 O2 Del Method 11/02/24 01:30 Room Air 11/02/24 01:15 11/02/24 00:30 Room Air 11/01/24 23:30 Room Air 11/01/24 23:00 11/01/24 22:44 11/01/24 22:38 11/01/24 22:21 11/01/24 22:20 Room Air 11/01/24 21:30 11/01/24 21:21 11/01/24 21:12 11/01/24 21:02 Room Air Diagnostic Findings Laboratory Results WBC 5.99 K/ul (4.8-10.8) 11/01/24 21: RBC 4.24 M/uL (4.70-6.10) L 11/01/24 21: Hgb 13.0 g/dl (14.0-18.0) L 11/01/24 21: Hct 38.4 % (42.0-52.0) L 11/01/24 21: MCV 90.6 fL (80.0-100.0) 11/01/24 21: MCH 30.7 pg (25.0-34.0) 11/01/24 21: MCHC 33.9 g/dL (32.0-36.0) 11/01/24 21: RDW Std Deviation 49.1 fL (36.4-46.3) H 11/01/24 21: RDW Coeff of Renan 14.7 % (11.5-14.5) H 11/01/24: Plt Count 291 K/uL (130-400) 11/01/24: MPV 9.1 fL (9.4-12.4) L 11/01/24: Immature Gran % (Auto) 1.0 % 11/01/24: Neut % (Auto) 63.3 % 11/01/24: Lymph % (Auto) 19.5 % 11/01/24: Hoke % (Auto) 13.7 % 11/01/24: Eos % (Auto) 1.8 % 11/01/24: Baso % (Auto) 0.7 % 11/01/24 Neut # (Auto) 3.79 K/uL (1.40-6.50) 11/01/24 Lymph # (Auto) 1.17 K/uL (1.20-3.40) L 11/01/24: Hoke # (Auto) 0.82 K/uL (0.11-0.59) H 11/01/24: Eos # (Auto) 0.11 K/uL (0.00-0.50) 11/01/24: Baso # (Auto) 0.04 K/uL (0.00-0.20) 11/01/24: Immature Gran # (Auto) 0.06 K/uL (0.01-0.20) 11/01/24 Sodium 139 mmol/L (136-145) 11/01/24: Potassium 4.1 mmol/L (3.5-5.1) 11/01/24: Chloride 105 mmol/L (98-107) 11/01/24: Carbon Dioxide 27 mmol/L (21-32) 11/01/24: Anion Gap 7 (3-11) 11/01/24: BUN 13 mg/dl (6-23) 11/01/24 Creatinine 0.87 mg/dl (0.6-1.4) 11/01/24 Est Cr Clr Drug Dosing Not Reportable 11/01/24 eGFR 84.03 11/01/24: BUN/Creatinine Ratio 14.9 (10-20) 11/01/24: Glucose 107 mg/dl (70-99(Fasting)) H 11/01/24: Lactate 1.2 mmol/L (0.4-2.0) 11/01/24 22:24 Calcium 8.3 mg/dl (8.6-10.3) L 11/01/24: Magnesium 2.1 mg/dl (1.7-2.4) 11/01/24: Total Bilirubin 0.5 mg/dl (0.2-1.0) 11/01/24: Direct Bilirubin 0.0 mg/dl (0-0.2) 11/01/24: AST 15 U/L (13-39) 11/01/24: ALT 12 U/L (7-52) 11/01/24: Alkaline Phosphatase 115 U/L (34-104) H 11/01/24: Total Creatine Kinase 47 U/L (30-223) 11/01/24: Troponin I High Sens 5.0 pg/ml (0-20) 11/01/24: B-Natriuretic Peptide 141 pg/ml (0-100) H 11/01/24: Total Protein 6.4 gm/dl (6.0-8.3) 11/01/24: Albumin 3.3 gm/dl (3.4-5.0) L 11/01/24: Procalcitonin 0.11 ng/ml (0-0.5) 11/01/24: Adenovirus (PCR) Not Detected (NotDetected) 11/01/24: B. pertussis DNA (PCR) Not Detected (NotDetected) 11/01/24: B.parapertussis DNA PCR Not Detected (NotDetected) 11/01/24: C. pneumoniae DNA (PCR) Not Detected (NotDetected) 11/01/24: Coronavirus OC43 (PCR) Not Detected (NotDetected) 11/01/24: Coronavirus HKU1 (PCR) Not Detected (NotDetected) 11/01/24: Coronavirus 229E (PCR) Not Detected (NotDetected) 01/16/25 21:28 SARS-CoV-2 (PCR) DETECTED (NotDetected) A 11/01/24 21:28 Coronavirus NL63 (PCR) Not Detected (NotDetected) 11/01/24 21:28 Human Metapneumovir PCR Not Detected (NotDetected) 11/01/24 21:28 Influenza Type A (PCR) Not Detected (NotDetected) 11/01/24 21:28 Influenza Type B (PCR) Not Detected (NotDetected) 11/01/24 21:28 M. pneumoniae (PCR) Not Detected (NotDetected) 11/01/24 21:28 Parainfluenza 1 (PCR) Not Detected (NotDetected) 11/01/24 21:28 Parainfluenza 2 (PCR) Not Detected (NotDetected) 11/01/24 21:28 Parainfluenza 3 (PCR) Not Detected (NotDetected) 11/01/24 21:28 Parainfluenza 4 (PCR) Not Detected (NotDetected) 11/01/24 21:28 RSV (PCR) Not Detected (NotDetected) 11/01/24 21:28 Entero/Rhino (PCR) Not Detected (NotDetected) 11/01/24 21:28 Impressions Chest X-Ray 11/01/24 21:51 Exam(s): XR CXR 1 VIEW EXAM: XR Chest, 1 View CLINICAL HISTORY: Reason for exam: Sepsis. TECHNIQUE: Frontal view of the chest. COMPARISON: 10/27/2024. FINDINGS: Heart is enlarged. No CHF. Right basilar ill-defined atelectasis. Right basilar scarring versus platelike atelectasis. No pleural effusion or pneumothorax. Bones are unchanged. IMPRESSION: No significant interval change. Electronically signed by: Adriel Brown M.D. 11/02/24 00:17 AM Abdomen/Pelvis CT 11/01/24 22:20 Exam(s): CT ABDOMEN + PELVIS With Contrast IV Amt: 120 cc opti 320 EXAM: CT Abdomen and Pelvis With Intravenous Contrast CLINICAL HISTORY: abd pain, D, weakness. TECHNIQUE: Axial computed tomography images of the abdomen and pelvis with intravenous contrast. CTDI is 21.54 mGy and DLP is 2228.73 mGy-cm. Automated exposure control was utilized for the study. A dose lowering technique was utilized adhering to the principles of ALARA. CONTRAST: Patient received 120 cc opti 320 of IV contrast COMPARISON: No relevant prior studies available. FINDINGS: Lung bases: Small pericardial effusion. Minimal right pleural fluid. No mass. No consolidation. ABDOMEN: Liver: Normal size. Multiple scattered hypodense lesions throughout the liver too small to characterize. Gallbladder and bile ducts: Well distended. Minimal probable gallbladder sludge or small gallstones. No ductal dilation. Pancreas: Unremarkable. No mass. No ductal dilation. Spleen: Probable cyst in the posterior aspect of the spleen. No splenomegaly. Adrenals: Unremarkable. No mass. Kidneys and ureters: Bilateral renal cortical cysts. No obstructive uropathy. No obstructing renal or ureteral calculi. No hydronephrosis or hydroureter. Stomach and bowel: No obstruction or ileus. Nonspecific air-fluid levels bowel. No evidence for diverticulitis. Distal rectal wall thickening. PELVIS: Appendix: Appendix not identified. No secondary evidence for appendicitis. Bladder: Partially contracted with nonspecific wall thickening. No mass. Reproductive: Prominent 4.9 x 4.2 cm prostate gland. ABDOMEN and PELVIS: Intraperitoneal space: No free air. No free fluid. Bones/joints: No acute fracture. Degenerative changes of the spine. Soft tissues: Bilateral fat-containing inguinal hernias. Vasculature: Infrarenal IVC filter. No abdominal aortic aneurysm. Atherosclerotic vascular calcifications. Lymph nodes: Unremarkable. No enlarged lymph nodes. IMPRESSION: Nonspecific air-fluid levels in nondilated small and large bowel. No definite bowel obstruction or ileus. Distal rectal wall thickening, possibly proctitis. Multiple scattered hypodense lesions throughout the liver too small to characterize. Probable renal and spleen cysts. Partially contracted urinary bladder wall thickening with wall thickening, possibly related to prominent prostate gland. Minimal gallbladder sludge or gallstones. Senescent changes. Electronically signed by: Adriel Brown M.D. 11/02/24 01:08 AM Chest CTA 11/01/24 22:20 Exam(s): CTA CHEST IV Amt: 120 cc opti 320 EXAM: CT Angiography Chest With Intravenous Contrast CLINICAL HISTORY: PE. TECHNIQUE: Axial computed tomographic angiography images of the chest with intravenous contrast. CTDI is 21.54 mGy and DLP is 2228.73 mGy-cm. Automated exposure control was utilized for the study. A dose lowering technique was utilized adhering to the principles of ALARA. 3D and MIP reconstructed images were created and reviewed. COMPARISON: CXR 11/01/2024. FINDINGS: Study is limited by patient motion. Pulmonary arteries: No pulmonary embolism. Aorta: No thoracic aortic aneurysm or dissection. Atherosclerotic vascular calcifications. Lungs: Multifocal linear parenchymal changes greatest in the right lower lobe consistent with platelike atelectasis versus scarring. Dependent atelectasis bilaterally. Mild bronchiectasis with peribronchial thickening consistent with bronchitis. Small ill-defined parenchymal densities in lung apices, right greater than left, consistent with scarring. Pleural space: No pleural effusion. No pneumothorax. Heart: No cardiomegaly. Small pericardial effusion. No evidence of RV dysfunction. Coronary artery calcifications. Bones/joints: No acute fracture. Soft tissues: Unremarkable. Lymph nodes: Unremarkable. No enlarged lymph nodes. IMPRESSION: No pulmonary embolism. Predominately basilar platelike atelectasis and scarring. No focal consolidation. Atherosclerotic vascular calcifications. Small pericardial effusion. Electronically signed by: Adriel Brown M.D. 11/02/24 00:58 AM ECG Additional Comments: ECG. Normal sinus rhythm rate of 60. Left axis deviation. QTc 450. Code Status & VTE Plan VTE Prophylaxis Plan VTE Prophylaxis will be ordered: Yes
[2024-11-02] MEDS ORDERED: ACETAMINOPHEN 325 MG TAB PO PRN (02:20)
[2024-11-02] MEDS ORDERED: NITROGLYCERIN SL 0.4 MG/TAB TAB SL PRN (02:20)
[2024-11-02] MEDS: REMDESIVIR 200 MG in SODIUM CHLORIDE 0.9% 210 ML IV STA (03:29)
[2024-11-02 05:17] LABS: Appearance Urine Clear (Clear); Bacteria Urine Automated None Seen (None Seen); Bilirubin Urine Negative (Negative); Blood Urine Negative (Negative); Cast Urine Automated 0-2 /lpf (0-2); Color Urine Yellow; Epithelial Cell Urine Auto 0-2 /hpf (0-2); Glucose Urine UA Negative (Negative); Ketones Urine 1+ (Negative); Leukocyte Esterase Urine Negative (Negative); Nitrite Urine Negative (Negative); Protein Urine 1+ (Negative); RBC Urine Automated 0-2 /hpf (0-2); Specific Gravity Urine > 1.045 (1.000-1.030); Urobilinogen Urine Negative (Negative); WBC Urine Automated 0-5 /hpf (0-5)
[2024-11-02] MEDS: D5W AND NSS 1,000 ML IV SCH (05:32)
[2024-11-02 06:20] LABS: Adenovirus F 40/41 PCR Not Detected (NotDetected); Astrovirus PCR Not Detected (NotDetected); Campylobacter PCR Not Detected (NotDetected); Cryptosporidium PCR Not Detected (NotDetected); Cyclospora cayetanensis PCR Not Detected (NotDetected); Entamoeba histolytica PCR Not Detected (NotDetected); Enteroaggregative E.coli(EAEC) Not Detected (NotDetected); Enteropathogenic E.coli (EPEC) Not Detected (NotDetected); Enterotoxigenic E.coli (ETEC) Not Detected (NotDetected); Giardia lamblia PCR Not Detected (NotDetected); Norovirus GI/GII PCR Not Detected (NotDetected); Plesiomonas shigelloides PCR Not Detected (NotDetected); Rotavirus A PCR Not Detected (NotDetected); Salmonella PCR Not Detected (NotDetected); Sapovirus PCR Not Detected (NotDetected); Shiga-like Toxin E.coli (STEC) Not Detected (NotDetected); Shigella/Enteroinvasive E.coli Not Detected (NotDetected); Vibrio cholerae PCR Not Detected (NotDetected); Vibrio species PCR Not Detected (NotDetected); Yersinia enterocolitica PCR Not Detected (NotDetected)
[2024-11-02] MEDS: TAMSULOSIN HCL 0.4 MG CAP PO SCH (08:13)
[2024-11-02] MEDS: amLODIPine BESYLATE 5 MG TAB PO SCH (08:13)
[2024-11-02] MEDS: METOPROLOL TARTRATE 25 MG TAB PO SCH (08:13)
[2024-11-02] MEDS: APIXABAN 5 MG TABLET PO SCH (08:13)
[2024-11-02] MEDS: lisinopril 20 MG TAB PO SCH (08:13)
[2024-11-02] MEDS: ADVANCED PROBIOTIC 625 MG CAPSULE PO SCH (08:14)
[2024-11-02] MEDS: NYSTATIN SUSP 500,000 U/5 ML UDC PO SCH (08:14)
[2024-11-02] MEDS: dexAMETHasone 6 MG in SYRINGE 0 ML IV SCH (08:14)
[2024-11-02] MEDS: CEFDINIR 300 MG CAP PO SCH (08:14)
[2024-11-02 08:28] LABS: Albumin Level 2.8 gm/dl (3.4-5.0); Bilirubin Direct 0.1 mg/dl (0-0.2); Bilirubin,Total 0.4 mg/dl (0.2-1.0); Calcium 7.9 mg/dl (8.6-10.3); Creatinine Clr Calc Pharmacy 72.4 ml/min; Potassium 3.8 mmol/L (3.5-5.1); Total Protein 5.4 gm/dl (6.0-8.3)
[2024-11-02 08:38] LABS: Basophils # (auto) 0.03 K/uL (0.00-0.20); Basophils % (auto) 0.4 %; Eosinophils # (auto) 0.05 K/uL (0.00-0.50); Eosinophils % (auto) 0.7 %; Hematocrit (blood only) 34.3 % (42.0-52.0); Hemoglobin 11.5 g/dl (14.0-18.0); Immature Granulocytes # (auto) 0.04 K/uL (0.01-0.20); Immature Granulocytes % (auto) 0.6 %; Lymphocytes # (auto) 1.15 K/uL (1.20-3.40); Lymphocytes % (auto) 17.2 %; Mean Corpuscular Hemoglobin 30.1 pg (25.0-34.0); Mean Corpuscular Hgb Conc 33.5 g/dL (32.0-36.0); Mean Corpuscular Volume 89.8 fL (80.0-100.0); Monocytes # (auto) 0.76 K/uL (0.11-0.59); Monocytes % (auto) 11.4 %; Neutrophils # (auto) 4.65 K/uL (1.40-6.50); Neutrophils % (auto) 69.7 %; Platelet Count 256 K/uL (130-400); RDW Coefficient of Variation 14.9 % (11.5-14.5); RDW Standard Deviation 49.1 fL (36.4-46.3); Red Blood Count 3.82 M/uL (4.70-6.10); White Blood Count 6.68 K/ul (4.8-10.8)
[2024-11-02] MEDS: levoFLOXacin 750 MG TAB PO SCH (12:02)
--- NOTE | 2024-11-02 15:54 | Hospitalist Progress Note ---
Date of Service November 02, 2024 Assessment & Plan (1) Weakness: Plan: -in setting of severe right hemiplegia and other deficits from massive CVA -patient struggles to talk or move -COVID has likely weakened him further below baseline Plan: -PT/OT eval -discussions with daughter have led to discussions of hospice at discharge, DNRDNI and try to treat conditions while in hospital (2) UTI (urinary tract infection): Plan: -finish course of omnicef (3) COVID-19: Plan: -significant comorbidities -on room air Plan: -continue remdesevir and steroids given severe comorbidities -unable to do IS or use flutter valve -monitor closely (4) Hypertension: Plan: -continue home meds (5) Pulmonary emboli: Plan: -continue eliquis (6) Hemiplegia: Plan: -patient has very significant physical deficits and communication difficulties -given extent of disease patient is appropriate for hospice care, given difficulties with PO and other comorbid conditions (7) CVA (cerebral vascular accident): Plan: -see above Plan Feeding/fluids: heart healthy Analgesia: tylenol Sedation: none Thromboprophylaxis: eliquis Head up position: sat up in bed Ulcer prophylaxis: na Glycemic control: na Spontaneous breathing trial: on room air Bowel care: start miralax prn Indwelling catheter removal: na Deescalation of antibiotics: finish course for UTI Admission and Anticipated Discharge Date Admission Date: November 02, 2024 Subjective 84-year-old male with history of severe hemiplegic stroke who provide presents from home for weakness. Is very weak and febrile at home. Had recent admission. In the ED noted to have COVID admitted to medicine. Patient seen and examined at bedside. Patient is feeling well today. He feels better than when he was at home. Feels little stronger than yesterday. Review of Systems Review of Systems: CONSTITUTIONAL: Patient denies fevers, chills, sweats and weight changes. EYES: Patient denies any visual symptoms. EARS, NOSE, AND THROAT: No difficulties with hearing. No symptoms of rhinitis or sore throat. CARDIOVASCULAR: Patient denies chest pains, palpitations, orthopnea and paroxysmal nocturnal dyspnea. RESPIRATORY: No dyspnea on exertion, no wheezing or cough. GI: No nausea, vomiting, diarrhea, constipation, abdominal pain, hematochezia or melena. : No urinary hesitancy or dribbling. No nocturia or urinary frequency. No abnormal urethral discharge. MUSCULOSKELETAL: No myalgias or arthralgias. NEUROLOGIC: No chronic headaches, no seizures. Patient denies numbness, tingling or weakness. PSYCHIATRIC: Patient denies problems with mood disturbance. No problems with anxiety. ENDOCRINE: No excessive urination or excessive thirst. DERMATOLOGIC: Patient denies any rashes or skin changes. Physical Exam Physical Exam: Gen: A&O 3 NAD HEENT: NCAT, EOMI, not icteric. External ears normal. No rhinorrhea. Moist mucous membranes. Neck: Supple, full range of motion, no observable masses, No meningeal sign. Lungs: No Respiratory distress. CV: RRR, no edema. Abdomen: Soft, nondistended, No rebound tenderness. MSK: No joint swelling, no redness. Skin: No rashes, petechiae, lesions. Normal color per patient. Neuro: hemiplegia noted Psych: Appropriate for situation. Results & Data Results & Data Vital Signs (Past 12 Hours) Vital Signs Temp Pulse Pulse Resp BP Pulse Ox O2 Del Method 11/02/24 13:01 71 11/02/24 12:45 36.8 C 61 18 150/73 H 95 Room Air 11/02/24 10:27 Nasal Cannula 11/02/24 06:35 Nasal Cannula 11/02/24 06:17 63 11/02/24 05:58 36.9 C 53 L 18 135/70 95 Nasal Cannula O2 Flow Rate 11/02/24 13:01 11/02/24 12:45 11/02/24 10:27 2 11/02/24 06:35 2 11/02/24 06:17 11/02/24 05:58 2 Laboratory Results Laboratory Results WBC 6.68 K/ul (4.8-10.8) 11/02/24 07:55 RBC 3.82 M/uL (4.70-6.10) L 11/02/24 07:55 Hgb 11.5 g/dl (14.0-18.0) L 11/02/24 07:55 Hct 34.3 % (42.0-52.0) L 11/02/24 07:55 MCV 89.8 fL (80.0-100.0) 11/02/24 07:55 MCH 30.1 pg (25.0-34.0) 11/02/24 07:55 MCHC 33.5 g/dL (32.0-36.0) 11/02/24 07:55 RDW Std Deviation 49.1 fL (36.4-46.3) H 11/02/24 07:55 RDW Coeff of Renan 14.9 % (11.5-14.5) H 11/02/24 07:55 Plt Count 256 K/uL (130-400) 11/02/24 07:55 MPV 9.0 fL (9.4-12.4) L 11/02/24 07:55 Immature Gran % (Auto) 0.6 % 11/02/24 07:55 Neut % (Auto) 69.7 % 11/02/24 07:55 Lymph % (Auto) 17.2 % 11/02/24 07:55 [place] % (Auto) 11.4 % 11/02/24 07:55 Eos % (Auto) 0.7 % 11/02/24 07:55 Baso % (Auto) 0.4 % 11/02/24 07:55 Neut # (Auto) 4.65 K/uL (1.40-6.50) 11/02/24 07:55 Lymph # (Auto) 1.15 K/uL (1.20-3.40) L 11/02/24 07:55 [place] # (Auto) 0.76 K/uL (0.11-0.59) H 11/02/24 07:55 Eos # (Auto) 0.05 K/uL (0.00-0.50) 11/02/24 07:55 Baso # (Auto) 0.03 K/uL (0.00-0.20) 11/02/24 07:55 Immature Gran # (Auto) 0.04 K/uL (0.01-0.20) 11/02/24 07:55 Sodium 139 mmol/L (136-145) 11/02/24 07:55 Potassium 3.8 mmol/L (3.5-5.1) 11/02/24 07:55 Chloride 108 mmol/L (98-107) H 11/02/24 07:55 Carbon Dioxide 26 mmol/L (21-32) 11/02/24 07:55 Anion Gap 5 (3-11) 11/02/24 07:55 BUN 12 mg/dl (6-23) 11/02/24 07:55 Creatinine 0.80 mg/dl (0.6-1.4) 11/02/24 07:55 Est Cr Clr Drug Dosing 72.4 ml/min 11/02/24 07:55 eGFR 86.19 11/02/24 07:55 BUN/Creatinine Ratio 15.0 (10-20) 11/02/24 07:55 Glucose 101 mg/dl (70-99(Fasting)) H 11/02/24 07:55 Lactate 1.2 mmol/L (0.4-2.0) 11/01/24 22:24 Calcium 7.9 mg/dl (8.6-10.3) L 11/02/24 07:55 Magnesium 2.0 mg/dl (1.7-2.4) 11/02/24 07:55 Total Bilirubin 0.4 mg/dl (0.2-1.0) 11/02/24 07:55 Direct Bilirubin 0.1 mg/dl (0-0.2) 11/02/24 07:55 AST 14 U/L (13-39) 11/02/24 07:55 ALT 9 U/L (7-52) 11/02/24 07:55 Alkaline Phosphatase 93 U/L (34-104) 11/02/24 07:55 Total Creatine Kinase 47 U/L (30-223) 11/01/24 21:28 Troponin I High Sens 5.0 pg/ml (0-20) 11/01/24 21:28 B-Natriuretic Peptide 141 pg/ml (0-100) H 11/01/24 21:28 Total Protein 5.4 gm/dl (6.0-8.3) L 11/02/24 07:55 Albumin 2.8 gm/dl (3.4-5.0) L 11/02/24 07:55 Procalcitonin 0.11 ng/ml (0-0.5) 11/01/24 21:28 Urine Color Yellow 11/02/24 05:04 Urine Appearance Clear (Clear) 11/02/24 05:04 Urine pH 5.0 (4.5-7.5) 11/02/24 05:04 Ur Specific [place] > 1.045 (1.000-1.030) H 11/02/24 05:04 Urine Protein 1+ (Negative) H 11/02/24 05:04 Urine Glucose (UA) Negative (Negative) 11/02/24 05:04 Urine Ketones 1+ (Negative) H 11/02/24 05:04 Urine Blood Negative (Negative) 11/02/24 05:04 Urine Nitrite Negative (Negative) 11/02/24 05:04 Urine Bilirubin Negative (Negative) 11/02/24 05:04 Urine Urobilinogen Negative (Negative) 11/02/24 05:04 Ur Leukocyte Esterase Negative (Negative) 11/02/24 05:04 Urine WBC (Auto) 0-5 /hpf (0-5) 11/02/24 05:04 Urine RBC (Auto) 0-2 /hpf (0-2) 11/02/24 05:04 U Hyaline Cast (Auto) 0-2 /lpf (0-2) 11/02/24 05:04 U Epithel Cells (Auto) 0-2 /hpf (0-2) 11/02/24 05:04 Urine Bacteria (Auto) None Seen (None Seen) 11/02/24 05:04 Stl C. cayetanensis PCR Not Detected (NotDetected) 11/02/24 04:43 Stool Rotavirus A PCR Not Detected (NotDetected) 11/02/24 04:43 Stl Adenov F 40/41 PCR Not Detected (NotDetected) 11/02/24 04:43 Stool Astrovirus (PCR) Not Detected (NotDetected) 11/02/24 04:43 Stool Campylobacter PCR Not Detected (NotDetected) 11/02/24 04:43 Stl C. diff Tox B Gene Negative Cdiff Gene (Neg) 11/02/24 04:43 Stool Cryptosporidium PCR Not Detected (NotDetected) 11/02/24 04:43 Stl E.coli Shiga Tox PCR Not Detected (NotDetected) 11/02/24 04:43 Stl Enterotoxigenic E PCR Not Detected (NotDetected) 11/02/24 04:43 Stool EPEC (PCR) Not Detected (NotDetected) 11/02/24 04:43 Stool EAEC (PCR) Not Detected (NotDetected) 11/02/24 04:43 Stl E. histolytica PCR Not Detected (NotDetected) 11/02/24 04:43 Stool Giardia Lamblia PCR Not Detected (NotDetected) 11/02/24 04:43 Stool Salmonella PCR Not Detected (NotDetected) 11/02/24 04:43 Stool Sapovirus (PCR) Not Detected (NotDetected) 11/02/24 04:43 Stl P. shigelloides PCR Not Detected (NotDetected) 11/02/24 04:43 Stl Shigella/EIEC PCR Not Detected (NotDetected) 11/02/24 04:43 St Y.enterocolitica PCR Not Detected (NotDetected) 11/02/24 04:43 Stool Vibrio (PCR) Not Detected (NotDetected) 11/02/24 04:43 Stl Vibrio cholerae PCR Not Detected (NotDetected) 11/02/24 04:43 Stl Norovirus GI/GII PCR Not Detected (NotDetected) 11/02/24 04:43 Adenovirus (PCR) Not Detected (NotDetected) 11/01/24 21:28 B. pertussis DNA (PCR) Not Detected (NotDetected) 11/01/24 21:28 B.parapertussis DNA PCR Not Detected (NotDetected) 11/01/24 21:28 C. pneumoniae DNA (PCR) Not Detected (NotDetected) 11/01/24 21:28 Coronavirus OC43 (PCR) Not Detected (NotDetected) 11/01/24 21:28 Coronavirus HKU1 (PCR) Not Detected (NotDetected) 11/01/24 21:28 Coronavirus 229E (PCR) Not Detected (NotDetected) 11/01/24 21:28 SARS-CoV-2 (PCR) DETECTED (NotDetected) A 11/01/24 21:28 Coronavirus NL63 (PCR) Not Detected (NotDetected) 11/01/24 21:28 Human Metapneumovir PCR Not Detected (NotDetected) 11/01/24 21:28 Influenza Type A (PCR) Not Detected (NotDetected) 11/01/24 21:28 Influenza Type B (PCR) Not Detected (NotDetected) 11/01/24 21:28 M. pneumoniae (PCR) Not Detected (NotDetected) 11/01/24 21:28 Parainfluenza 1 (PCR) Not Detected (NotDetected) 11/01/24 21:28 Parainfluenza 2 (PCR) Not Detected (NotDetected) 11/01/24 21:28 Parainfluenza 3 (PCR) Not Detected (NotDetected) 11/01/24 21:28 Parainfluenza 4 (PCR) Not Detected (NotDetected) 11/01/24 21:28 RSV (PCR) Not Detected (NotDetected) 11/01/24 21:28 Entero/Rhino (PCR) Not Detected (NotDetected) 11/01/24 21:28 Impressions Chest X-Ray 11/01/24 21:51 Exam(s): XR CXR 1 VIEW EXAM: XR Chest, 1 View CLINICAL HISTORY: Reason for exam: Sepsis. TECHNIQUE: Frontal view of the chest. COMPARISON: 10/27/2024. FINDINGS: Heart is enlarged. No CHF. Right basilar ill-defined atelectasis. Right basilar scarring versus platelike atelectasis. No pleural effusion or pneumothorax. Bones are unchanged. IMPRESSION: No significant interval change. Electronically signed by: Adriel Brown M.D. 11/02/24 00:17 AM Abdomen/Pelvis CT 11/01/24 22:20 Exam(s): CT ABDOMEN + PELVIS With Contrast IV Amt: 120 cc opti 320 EXAM: CT Abdomen and Pelvis With Intravenous Contrast CLINICAL HISTORY: abd pain, D, weakness. TECHNIQUE: Axial computed tomography images of the abdomen and pelvis with intravenous contrast. CTDI is 21.54 mGy and DLP is 2228.73 mGy-cm. Automated exposure control was utilized for the study. A dose lowering technique was utilized adhering to the principles of ALARA. CONTRAST: Patient received 120 cc opti 320 of IV contrast COMPARISON: No relevant prior studies available. FINDINGS: Lung bases: Small pericardial effusion. Minimal right pleural fluid. No mass. No consolidation. ABDOMEN: Liver: Normal size. Multiple scattered hypodense lesions throughout the liver too small to characterize. Gallbladder and bile ducts: Well distended. Minimal probable gallbladder sludge or small gallstones. No ductal dilation. Pancreas: Unremarkable. No mass. No ductal dilation. Spleen: Probable cyst in the posterior aspect of the spleen. No splenomegaly. Adrenals: Unremarkable. No mass. Kidneys and ureters: Bilateral renal cortical cysts. No obstructive uropathy. No obstructing renal or ureteral calculi. No hydronephrosis or hydroureter. Stomach and bowel: No obstruction or ileus. Nonspecific air-fluid levels bowel. No evidence for diverticulitis. Distal rectal wall thickening. PELVIS: Appendix: Appendix not identified. No secondary evidence for appendicitis. Bladder: Partially contracted with nonspecific wall thickening. No mass. Reproductive: Prominent 4.9 x 4.2 cm prostate gland. ABDOMEN and PELVIS: Intraperitoneal space: No free air. No free fluid. Bones/joints: No acute fracture. Degenerative changes of the spine. Soft tissues: Bilateral fat-containing inguinal hernias. Vasculature: Infrarenal IVC filter. No abdominal aortic aneurysm. Atherosclerotic vascular calcifications. Lymph nodes: Unremarkable. No enlarged lymph nodes. IMPRESSION: Nonspecific air-fluid levels in nondilated small and large bowel. No definite bowel obstruction or ileus. Distal rectal wall thickening, possibly proctitis. Multiple scattered hypodense lesions throughout the liver too small to characterize. Probable renal and spleen cysts. Partially contracted urinary bladder wall thickening with wall thickening, possibly related to prominent prostate gland. Minimal gallbladder sludge or gallstones. Senescent changes. Electronically signed by: Adriel Brown M.D. 11/02/24 01:08 AM Chest CTA 11/01/24 22:20 Exam(s): CTA CHEST IV Amt: 120 cc opti 320 EXAM: CT Angiography Chest With Intravenous Contrast CLINICAL HISTORY: PE. TECHNIQUE: Axial computed tomographic angiography images of the chest with intravenous contrast. CTDI is 21.54 mGy and DLP is 2228.73 mGy-cm. Automated exposure control was utilized for the study. A dose lowering technique was utilized adhering to the principles of ALARA. 3D and MIP reconstructed images were created and reviewed. COMPARISON: CXR 11/01/2024. FINDINGS: Study is limited by patient motion. Pulmonary arteries: No pulmonary embolism. Aorta: No thoracic aortic aneurysm or dissection. Atherosclerotic vascular calcifications. Lungs: Multifocal linear parenchymal changes greatest in the right lower lobe consistent with platelike atelectasis versus scarring. Dependent atelectasis bilaterally. Mild bronchiectasis with peribronchial thickening consistent with bronchitis. Small ill-defined parenchymal densities in lung apices, right greater than left, consistent with scarring. Pleural space: No pleural effusion. No pneumothorax. Heart: No cardiomegaly. Small pericardial effusion. No evidence of RV dysfunction. Coronary artery calcifications. Bones/joints: No acute fracture. Soft tissues: Unremarkable. Lymph nodes: Unremarkable. No enlarged lymph nodes. IMPRESSION: No pulmonary embolism. Predominately basilar platelike atelectasis and scarring. No focal consolidation. Atherosclerotic vascular calcifications. Small pericardial effusion. Electronically signed by: Adriel Brown M.D. 11/02/24 00:58 AM (2) UTI (urinary tract infection) Urinary tract infection type: site unspecified Hematuria presence: without hematuria Qualified Code(s): N39.0 - Urinary tract infection, site not specified (4) Hypertension Hypertension type: unspecified Qualified Code(s): I10 - Essential (primary) hypertension (5) Pulmonary emboli Pulmonary embolism type: multiple subsegmental (without acute cor pulmonale) Qualified Code(s): I26.94 - Multiple subsegmental pulmonary emboli without acute cor pulmonale (6) Hemiplegia Hemiplegia etiology: late effect of cerebrovascular disease Cerebrovascular disease type: unspecified Hemiplegia laterality: unspecified Hemiplegia type: flaccid Qualified Code(s): I69.959 - Hemiplegia and hemiparesis following unspecified cerebrovascular disease affecting unspecified side (7) CVA (cerebral vascular accident) CVA mechanism: occlusion Precerebral and cerebral artery: middle cerebral artery Laterality of affected vessel: unspecified Qualified Code(s): I63.519 - Cerebral infarction due to unspecified occlusion or stenosis of unspecified middle cerebral artery
[2024-11-02] MEDS ORDERED: POLYETHYLENE (MIRALAX) 17 GM PACK PO PRN (15:56)
[2024-11-02] MEDS: SIMVASTATIN 20 MG TAB PO SCH (20:16)
[2024-11-02] MEDS: REMDESIVIR 100 MG in SODIUM CHLORIDE 0.9% 230 ML IV SCH (20:16)
--- NOTE | 2024-11-02 22:21 | Electrocardiogram Report ---
Test Reason : Blood Pressure : */* mmHG Vent. Rate : 60 BPM Atrial Rate : 60 BPM P-R Int : 168 ms QRS Dur : 90 ms QT Int : 450 ms P-R-T Axes : 25 -30 52 degrees QTcB Int : 450 ms Normal sinus rhythm Left axis deviation Septal infarct (cited on or before 27-Oct-2024) Abnormal ECG When compared with ECG of 27-Oct-2024 11:11, Premature ventricular complexes are no longer Present Questionable change in initial forces of Septal leads Confirmed by Dale Stearns [id number]) on 11/02/2024 10:21:39 PM Referred By: REFERRED SELF Confirmed By: Dale Stearns
[2024-11-03 07:25] LABS: Hematocrit (blood only) 37.5 % (42.0-52.0); Hemoglobin 12.4 g/dl (14.0-18.0); Mean Corpuscular Hemoglobin 30.4 pg (25.0-34.0); Mean Corpuscular Hgb Conc 33.1 g/dL (32.0-36.0); Mean Corpuscular Volume 91.9 fL (80.0-100.0); Mean Platelet Volume 9.1 fL (9.4-12.4); Platelet Count 294 K/uL (130-400); RDW Coefficient of Variation 15.3 % (11.5-14.5); RDW Standard Deviation 51.9 fL (36.4-46.3); Red Blood Count 4.08 M/uL (4.70-6.10); White Blood Count 10.64 K/ul (4.8-10.8)
[2024-11-03 07:41] LABS: BUN Creatinine Ratio 24.7 (10-20); Calcium 8.4 mg/dl (8.6-10.3); Creatinine Clr Calc Pharmacy 62.7 ml/min; Potassium 4.1 mmol/L (3.5-5.1)
--- NOTE | 2024-11-03 09:51 | Hospitalist Progress Note ---
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 -patient struggles to talk or move -COVID has likely weakened him further below baseline -appears better today Plan: -PT/OT eval, appreciate assistance -discussions with daughter have led to discussions of hospice at discharge, DNRDNI and try to treat conditions while in hospital (2) Acute hypoxic respiratory failure: Plan: -in setting of COVID and atelectasis Plan: -continue remdesevir/steroids -start IS if able to tolerate (3) COVID-19: Plan: -significant comorbidities -on room air Plan: -continue remdesevir and steroids given severe comorbidities -monitor closely (4) UTI (urinary tract infection): Plan: -finish course of omnicef (5) Hypertension: Plan: -continue home meds (6) Hemiplegia: Plan: -patient has very significant physical deficits and communication difficulties -given extent of disease patient is appropriate for hospice care, given difficulties with PO and other comorbid conditions (7) CVA (cerebral vascular accident): Plan: -see above Plan Feeding/fluids: heart healthy Analgesia: tylenol Sedation: none Thromboprophylaxis: eliquis Head up position: sat up in bed Ulcer prophylaxis: na Glycemic control: na Spontaneous breathing trial: on NC Bowel care: start miralax prn Indwelling catheter removal: na Deescalation of antibiotics: finish course for UTI Admission and Anticipated Discharge Date Admission Date: November 02, 2024 Subjective Patient seen examined at bedside. Patient is doing well today. Feels much better, less short of breath. Okay with plan to go home on Tuesday. Review of Systems Review of Systems: CONSTITUTIONAL: Patient denies fevers, chills, sweats and weight changes. EYES: Patient denies any visual symptoms. EARS, NOSE, AND THROAT: No difficulties with hearing. No symptoms of rhinitis or sore throat. CARDIOVASCULAR: Patient denies chest pains, palpitations, orthopnea and parox ysmal nocturnal dyspnea. RESPIRATORY: No dyspnea on exertion, no wheezing or cough. GI: No nausea, vomiting, diarrhea, constipation, abdominal pain, hematochezia or melena. : No urinary hesitancy or dribbling. No nocturia or urinary frequency. No abnormal urethral discharge. MUSCULOSKELETAL: No myalgias or arthralgias. NEUROLOGIC: No chronic headaches, no seizures. Patient denies numbness, tingling or weakness. PSYCHIATRIC: Patient denies problems with mood disturbance. No problems with anxiety. ENDOCRINE: No excessive urination or excessive thirst. DERMATOLOGIC: Patient denies any rashes or skin changes. Physical Exam Physical Exam: Gen: A&O 3 NAD, appears better today HEENT: NCAT, EOMI, not icteric. External ears normal. No rhinorrhea. Moist mucous membranes. Neck: Supple, full range of motion, no observable masses, No meningeal sign. Lungs: No Respiratory distress. CV: RRR, no edema. Abdomen: Soft, nondistended, No rebound tenderness. MSK: No joint swelling, no redness. Skin: No rashes, petechiae, lesions. Normal color per patient. Neuro: hemiplegia noted, speech difficulties from prior noted Psych: Appropriate for situation. Results & Data Results & Data Vital Signs (Past 12 Hours) Vital Signs Temp Pulse Pulse Resp BP Pulse Ox Pulse Ox 11/03/24 09:42 54 L 11/03/24 08:37 36.4 C L 71 153/69 H 96 11/03/24 08:37 96 11/03/24 03:05 36.6 C 56 L 18 115/65 96 11/02/24 22:57 36.6 C 53 L 18 120/63 95 11/02/24 22:05 48 L O2 Del Method O2 Del Method O2 Flow Rate O2 Flow Rate 11/03/24 09:42 11/03/24 08:37 Nasal Cannula 2 11/03/24 08:37 Nasal Cannula 2 11/03/24 03:05 Nasal Cannula 2 11/02/24 22:57 Nasal Cannula 2 11/02/24 22:05 Laboratory Results Laboratory Results WBC 10.64 K/ul (4.8-10.8) 11/03/24 06:56 RBC 4.08 M/uL (4.70-6.10) L 11/03/24 06:56 Hgb 12.4 g/dl (14.0-18.0) L 11/03/24 06:56 Hct 37.5 % (42.0-52.0) L 11/03/24 06:56 MCV 91.9 fL (80.0-100.0) 11/03/24 06:56 MCH 30.4 pg (25.0-34.0) 11/03/24 06:56 MCHC 33.1 g/dL (32.0-36.0) 11/03/24 06:56 RDW Std Deviation 51.9 fL (36.4-46.3) H 11/03/24 06:56 RDW Coeff of Renan 15.3 % (11.5-14.5) H 11/03/24 06:56 Plt Count 294 K/uL (130-400) 11/03/24 06:56 MPV 9.1 fL (9.4-12.4) L 11/03/24 06:56 Immature Gran % (Auto) 0.6 % 11/02/24 07:55 Neut % (Auto) 69.7 % 11/02/24 07:55 Lymph % (Auto) 17.2 % 11/02/24 07:55 [place] % (Auto) 11.4 % 11/02/24 07:55 Eos % (Auto) 0.7 % 11/02/24 07:55 Baso % (Auto) 0.4 % 11/02/24 07:55 Neut # (Auto) 4.65 K/uL (1.40-6.50) 11/02/24 07:55 Lymph # (Auto) 1.15 K/uL (1.20-3.40) L 11/02/24 07:55 [place] # (Auto) 0.76 K/uL (0.11-0.59) H 11/02/24 07:55 Eos # (Auto) 0.05 K/uL (0.00-0.50) 11/02/24 07:55 Baso # (Auto) 0.03 K/uL (0.00-0.20) 11/02/24 07:55 Immature Gran # (Auto) 0.04 K/uL (0.01-0.20) 11/02/24 07:55 Sodium 141 mmol/L (136-145) 11/03/24 06:56 Potassium 4.1 mmol/L (3.5-5.1) 11/03/24 06:56 Chloride 108 mmol/L (98-107) H 11/03/24 06:56 Carbon Dioxide 28 mmol/L (21-32) 11/03/24 06:56 Anion Gap 5 (3-11) 11/03/24 06:56 BUN 22 mg/dl (6-23) 11/03/24 06:56 Creatinine 0.89 mg/dl (0.6-1.4) 11/03/24 06:56 Est Cr Clr Drug Dosing 62.7 ml/min 11/03/24 06:56 eGFR 83.46 11/03/24 06:56 BUN/Creatinine Ratio 24.7 (10-20) H 11/03/24 06:56 Glucose 89 mg/dl (70-99(Fasting)) 11/03/24 06:56 Lactate 1.2 mmol/L (0.4-2.0) 11/01/24 22:24 Calcium 8.4 mg/dl (8.6-10.3) L 11/03/24 06:56 Magnesium 2.0 mg/dl (1.7-2.4) 11/02/24 07:55 Total Bilirubin 0.4 mg/dl (0.2-1.0) 11/02/24 07:55 Direct Bilirubin 0.1 mg/dl (0-0.2) 11/02/24 07:55 AST 13 U/L (13-39) 11/03/24 06:56 ALT 9 U/L (7-52) 11/03/24 06:56 Alkaline Phosphatase 93 U/L (34-104) 11/02/24 07:55 Total Creatine Kinase 47 U/L (30-223) 11/01/24 21:28 Troponin I High Sens 5.0 pg/ml (0-20) 11/01/24 21:28 B-Natriuretic Peptide 141 pg/ml (0-100) H 11/01/24 21:28 Total Protein 5.4 gm/dl (6.0-8.3) L 11/02/24 07:55 Albumin 2.8 gm/dl (3.4-5.0) L 11/02/24 07:55 Procalcitonin 0.11 ng/ml (0-0.5) 11/01/24 21:28 Urine Color Yellow 11/02/24 05:04 Urine Appearance Clear (Clear) 11/02/24 05:04 Urine pH 5.0 (4.5-7.5) 11/02/24 05:04 Ur Specific Smilax > 1.045 (1.000-1.030) H 11/02/24 05:04 Urine Protein 1+ (Negative) H 11/02/24 05:04 Urine Glucose (UA) Negative (Negative) 11/02/24 05:04 Urine Ketones 1+ (Negative) H 11/02/24 05:04 Urine Blood Negative (Negative) 11/02/24 05:04 Urine Nitrite Negative (Negative) 11/02/24 05:04 Urine Bilirubin Negative (Negative) 11/02/24 05:04 Urine Urobilinogen Negative (Negative) 11/02/24 05:04 Ur Leukocyte Esterase Negative (Negative) 11/02/24 05:04 Urine WBC (Auto) 0-5 /hpf (0-5) 11/02/24 05:04 Urine RBC (Auto) 0-2 /hpf (0-2) 11/02/24 05:04 U Hyaline Cast (Auto) 0-2 /lpf (0-2) 11/02/24 05:04 U Epithel Cells (Auto) 0-2 /hpf (0-2) 11/02/24 05:04 Urine Bacteria (Auto) None Seen (None Seen) 11/02/24 05:04 Stl C. cayetanensis PCR Not Detected (NotDetected) 11/02/24 04:43 Stool Rotavirus A PCR Not Detected (NotDetected) 11/02/24 04:43 Stl Adenov F 40/41 PCR Not Detected (NotDetected) 11/02/24 04:43 Stool Astrovirus (PCR) Not Detected (NotDetected) 11/02/24 04:43 Stool Campylobacter PCR Not Detected (NotDetected) 11/02/24 04:43 Stl C. diff Tox B Gene Negative Cdiff Gene (Neg) 11/02/24 04:43 Stool Cryptosporidium PCR Not Detected (NotDetected) 11/02/24 04:43 Stl E.coli Shiga Tox PCR Not Detected (NotDetected) 11/02/24 04:43 Stl Enterotoxigenic E PCR Not Detected (NotDetected) 11/02/24 04:43 Stool EPEC (PCR) Not Detected (NotDetected) 11/02/24 04:43 Stool EAEC (PCR) Not Detected (NotDetected) 11/02/24 04:43 Stl E. histolytica PCR Not Detected (NotDetected) 11/02/24 04:43 Stool Giardia Lamblia PCR Not Detected (NotDetected) 11/02/24 04:43 Stool Salmonella PCR Not Detected (NotDetected) 11/02/24 04:43 Stool Sapovirus (PCR) Not Detected (NotDetected) 11/02/24 04:43 Stl P. shigelloides PCR Not Detected (NotDetected) 11/02/24 04:43 Stl Shigella/EIEC PCR Not Detected (NotDetected) 11/02/24 04:43 St Y.enterocolitica PCR Not Detected (NotDetected) 11/02/24 04:43 Stool Vibrio (PCR) Not Detected (NotDetected) 11/02/24 04:43 Stl Vibrio cholerae PCR Not Detected (NotDetected) 11/02/24 04:43 Stl Norovirus GI/GII PCR Not Detected (NotDetected) 11/02/24 04:43 Adenovirus (PCR) Not Detected (NotDetected) 11/01/24 21:28 B. pertussis DNA (PCR) Not Detected (NotDetected) 11/01/24 21:28 B.parapertussis DNA PCR Not Detected (NotDetected) 11/01/24 21:28 C. pneumoniae DNA (PCR) Not Detected (NotDetected) 11/01/24 21:28 Coronavirus OC43 (PCR) Not Detected (NotDetected) 11/01/24 21:28 Coronavirus HKU1 (PCR) Not Detected (NotDetected) 11/01/24 21:28 Coronavirus 229E (PCR) Not Detected (NotDetected) 11/01/24 21:28 SARS-CoV-2 (PCR) DETECTED (NotDetected) A 11/01/24 21:28 Coronavirus NL63 (PCR) Not Detected (NotDetected) 11/01/24 21:28 Human Metapneumovir PCR Not Detected (NotDetected) 11/01/24 21:28 Influenza Type A (PCR) Not Detected (NotDetected) 11/01/24 21:28 Influenza Type B (PCR) Not Detected (NotDetected) 11/01/24 21:28 M. pneumoniae (PCR) Not Detected (NotDetected) 11/01/24 21:28 Parainfluenza 1 (PCR) Not Detected (NotDetected) 11/01/24 21:28 Parainfluenza 2 (PCR) Not Detected (NotDetected) 11/01/24 21:28 Parainfluenza 3 (PCR) Not Detected (NotDetected) 11/01/24 21:28 Parainfluenza 4 (PCR) Not Detected (NotDetected) 11/01/24 21:28 RSV (PCR) Not Detected (NotDetected) 11/01/24 21:28 Entero/Rhino (PCR) Not Detected (NotDetected) 11/01/24 21:28 Impressions Chest X-Ray 11/01/24 21:51 Exam(s): XR CXR 1 VIEW EXAM: XR Chest, 1 View CLINICAL HISTORY: Reason for exam: Sepsis. TECHNIQUE: Frontal view of the chest. COMPARISON: 10/27/2024. FINDINGS: Heart is enlarged. No CHF. Right basilar ill-defined atelectasis. Right basilar scarring versus platelike atelectasis. No pleural effusion or pneumothorax. Bones are unchanged. IMPRESSION: No significant interval change. Electronically signed by: Adriel Brown M.D. 11/02/24 00:17 AM Abdomen/Pelvis CT 11/01/24 22:20 Exam(s): CT ABDOMEN + PELVIS With Contrast IV Amt: 120 cc opti 320 EXAM: CT Abdomen and Pelvis With Intravenous Contrast CLINICAL HISTORY: abd pain, D, weakness. TECHNIQUE: Axial computed tomography images of the abdomen and pelvis with intravenous contrast. CTDI is 21.54 mGy and DLP is 2228.73 mGy-cm. Automated exposure control was utilized for the study. A dose lowering technique was utilized adhering to the principles of ALARA. CONTRAST: Patient received 120 cc opti 320 of IV contrast COMPARISON: No relevant prior studies available. FINDINGS: Lung bases: Small pericardial effusion. Minimal right pleural fluid. No mass. No consolidation. ABDOMEN: Liver: Normal size. Multiple scattered hypodense lesions throughout the liver too small to characterize. Gallbladder and bile ducts: Well distended. Minimal probable gallbladder sludge or small gallstones. No ductal dilation. Pancreas: Unremarkable. No mass. No ductal dilation. Spleen: Probable cyst in the posterior aspect of the spleen. No splenomegaly. Adrenals: Unremarkable. No mass. Kidneys and ureters: Bilateral renal cortical cysts. No obstructive uropathy. No obstructing renal or ureteral calculi. No hydronephrosis or hydroureter. Stomach and bowel: No obstruction or ileus. Nonspecific air-fluid levels bowel. No evidence for diverticulitis. Distal rectal wall thickening. PELVIS: Appendix: Appendix not identified. No secondary evidence for appendicitis. Bladder: Partially contracted with nonspecific wall thickening. No mass. Reproductive: Prominent 4.9 x 4.2 cm prostate gland. ABDOMEN and PELVIS: Intraperitoneal space: No free air. No free fluid. Bones/joints: No acute fracture. Degenerative changes of the spine. Soft tissues: Bilateral fat-containing inguinal hernias. Vasculature: Infrarenal IVC filter. No abdominal aortic aneurysm. Atherosclerotic vascular calcifications. Lymph nodes: Unremarkable. No enlarged lymph nodes. IMPRESSION: Nonspecific air-fluid levels in nondilated small and large bowel. No definite bowel obstruction or ileus. Distal rectal wall thickening, possibly proctitis. Multiple scattered hypodense lesions throughout the liver too small to characterize. Probable renal and spleen cysts. Partially contracted urinary bladder wall thickening with wall thickening, possibly related to prominent prostate gland. Minimal gallbladder sludge or gallstones. Senescent changes. Electronically signed by: Adriel Brown M.D. 11/02/24 01:08 AM Chest CTA 11/01/24 22:20 Exam(s): CTA CHEST IV Amt: 120 cc opti 320 EXAM: CT Angiography Chest With Intravenous Contrast CLINICAL HISTORY: PE. TECHNIQUE: Axial computed tomographic angiography images of the chest with intravenous contrast. CTDI is 21.54 mGy and DLP is 2228.73 mGy-cm. Automated exposure control was utilized for the study. A dose lowering technique was utilized adhering to the principles of ALARA. 3D and MIP reconstructed images were created and reviewed. COMPARISON: CXR 11/01/2024. FINDINGS: Study is limited by patient motion. Pulmonary arteries: No pulmonary embolism. Aorta: No thoracic aortic aneurysm or dissection. Atherosclerotic vascular calcifications. Lungs: Multifocal linear parenchymal changes greatest in the right lower lobe consistent with platelike atelectasis versus scarring. Dependent atelectasis bilaterally. Mild bronchiectasis with peribronchial thickening consistent with bronchitis. Small ill-defined parenchymal densities in lung apices, right greater than left, consistent with scarring. Pleural space: No pleural effusion. No pneumothorax. Heart: No cardiomegaly. Small pericardial effusion. No evidence of RV dysfunction. Coronary artery calcifications. Bones/joints: No acute fracture. Soft tissues: Unremarkable. Lymph nodes: Unremarkable. No enlarged lymph nodes. IMPRESSION: No pulmonary embolism. Predominately basilar platelike atelectasis and scarring. No focal consolidation. Atherosclerotic vascular calcifications. Small pericardial effusion. Electronically signed by: Adriel Brown M.D. 11/02/24 00:58 AM (4) UTI (urinary tract infection) Hematuria presence: without hematuria Urinary tract infection type: site unspecified Qualified Code(s): N39.0 - Urinary tract infection, site not specified (5) Hypertension Hypertension type: unspecified Qualified Code(s): I10 - Essential (primary) hypertension (6) Hemiplegia Cerebrovascular disease type: unspecified Hemiplegia etiology: late effect of cerebrovascular disease Hemiplegia laterality: unspecified Hemiplegia type: flaccid Qualified Code(s): I69.959 - Hemiplegia and hemiparesis following unspecified cerebrovascular disease affecting unspecified side (7) CVA (cerebral vascular accident) CVA mechanism: occlusion Laterality of affected vessel: unspecified Precerebral and cerebral artery: middle cerebral artery Qualified Code(s): I63.519 - Cerebral infarction due to unspecified occlusion or stenosis of unspecified middle cerebral artery
[2024-11-04 07:12] LABS: Hemoglobin 11.5 g/dl (14.0-18.0); Mean Corpuscular Hemoglobin 30.2 pg (25.0-34.0); Mean Corpuscular Hgb Conc 32.9 g/dL (32.0-36.0); Mean Corpuscular Volume 91.9 fL (80.0-100.0); Mean Platelet Volume 8.8 fL (9.4-12.4); Platelet Count 299 K/uL (130-400); RDW Coefficient of Variation 15.2 % (11.5-14.5); RDW Standard Deviation 51.1 fL (36.4-46.3); Red Blood Count 3.81 M/uL (4.70-6.10); White Blood Count 10.39 K/ul (4.8-10.8)
--- NOTE | 2024-11-04 07:30 | Electrocardiogram Report ---
Test Reason : Blood Pressure : */* mmHG Vent. Rate : 52 BPM Atrial Rate : 52 BPM P-R Int : 186 ms QRS Dur : 92 ms QT Int : 486 ms P-R-T Axes : 57 -21 37 degrees QTcB Int : 451 ms Sinus bradycardia Otherwise normal ECG Confirmed by Rolan Abraham ([id number] on 11/04/2024 7:30:35 AM Referred By: REFERRED SELF Confirmed By: Roaln Abraham
[2024-11-04 07:34] LABS: Calcium 8.3 mg/dl (8.6-10.3); Creatinine Clr Calc Pharmacy 69.6 ml/min; Potassium 3.9 mmol/L (3.5-5.1)
--- NOTE | 2024-11-04 10:22 | Hospitalist Progress Note ---
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 -patient struggles to talk or move -appears better today Plan: -awaiting home with hospice tomorrow (2) Acute hypoxic respiratory failure: Plan: -in setting of COVID and atelectasis -resolving Plan: -continue remdesevir/steroids (3) COVID-19: Plan: -significant comorbidities -on room air Plan: -continue remdesevir and steroids given severe comorbidities -monitor closely (4) UTI (urinary tract infection): Plan: -finish course of omnicef (5) Hypertension: Plan: -continue home meds (6) Hemiplegia: Plan: -patient has very significant physical deficits and communication difficulties -given extent of disease patient is appropriate for hospice care, given difficulties with PO and other comorbid conditions (7) CVA (cerebral vascular accident): Plan: -see above Plan Feeding/fluids: heart healthy Analgesia: tylenol Sedation: none Thromboprophylaxis: eliquis Head up position: sat up in bed Ulcer prophylaxis: na Glycemic control: na Spontaneous breathing trial: on room air Bowel care: start miralax prn Indwelling catheter removal: na Deescalation of antibiotics: finish course for UTI Admission and Anticipated Discharge Date Admission Date: November 02, 2024 Subjective Patient seen and examined at bedside. Discussed case with daughter and plans for hospice care today over the phone as well. Patient is doing well today. No concerns. Happy with the care he is received here. Review of Systems Review of Systems: CONSTITUTIONAL: Patient denies fevers, chills, sweats and weight changes. EYES: Patient denies any visual symptoms. EARS, NOSE, AND THROAT: No difficulties with hearing. No symptoms of rhinitis or sore throat. CARDIOVASCULAR: Patient denies chest pains, palpitations, orthopnea and paroxysmal nocturnal dyspnea. RESPIRATORY: No dyspnea on exertion, no wheezing or cough. GI: No nausea, vomiting, diarrhea, constipation, abdominal pain, hematochezia or melena. : No urinary hesitancy or dribbling. No nocturia or urinary frequency. No abnormal urethral discharge. MUSCULOSKELETAL: No myalgias or arthralgias. NEUROLOGIC: No chronic headaches, no seizures. Patient denies numbness, tingling or weakness. PSYCHIATRIC: Patient denies problems with mood disturbance. No problems with anxiety. ENDOCRINE: No excessive urination or excessive thirst. DERMATOLOGIC: Patient denies any rashes or skin changes. Physical Exam Physical Exam: Gen: A&O 3 NAD HEENT: NCAT, EOMI, not icteric. External ears normal. No rhinorrhea. Moist mucous membranes. Neck: Supple, full range of motion, no observable masses, No meningeal sign. Lungs: No Respiratory distress. CV: RRR, no edema. Abdomen: Soft, nondistended, No rebound tenderness. MSK: No joint swelling, no redness. Skin: No rashes, petechiae, lesions. Normal color per patient. Neuro: hemiplegia noted, speech difficulties from prior noted Psych: Appropriate for situation. Results & Data Results & Data Vital Signs (Past 12 Hours) Vital Signs Temp Pulse Pulse Resp BP Pulse Ox O2 Del Method 11/04/24 08:00 36.5 C 73 18 159/71 H 93 Room Air 11/04/24 07:36 45 L 11/04/24 07:26 Nasal Cannula 11/04/24 02:49 36.4 C L 54 L 18 117/66 97 Nasal Cannula 11/03/24 22:37 36.3 C L 55 L 18 108/61 97 Nasal Cannula O2 Flow Rate 11/04/24 08:00 11/04/24 07:36 11/04/24 07:26 2 11/04/24 02:49 2 11/03/24 22:37 2 Laboratory Results Laboratory Results WBC 10.39 K/ul (4.8-10.8) 11/04/24 06:52 RBC 3.81 M/uL (4.70-6.10) L 11/04/24 06:52 Hgb 11.5 g/dl (14.0-18.0) L 11/04/24 06:52 Hct 35.0 % (42.0-52.0) L 11/04/24 06:52 MCV 91.9 fL (80.0-100.0) 11/04/24 06:52 MCH 30.2 pg (25.0-34.0) 11/04/24 06:52 MCHC 32.9 g/dL (32.0-36.0) 11/04/24 06:52 RDW Std Deviation 51.1 fL (36.4-46.3) H 11/04/24 06:52 RDW Coeff of Renan 15.2 % (11.5-14.5) H 11/04/24 06:52 Plt Count 299 K/uL (130-400) 11/04/24 06:52 MPV 8.8 fL (9.4-12.4) L 11/04/24 06:52 Immature Gran % (Auto) 0.6 % 11/02/24 07:55 Neut % (Auto) 69.7 % 11/02/24 07:55 Lymph % (Auto) 17.2 % 11/02/24 07:55 [place] % (Auto) 11.4 % 11/02/24 07:55 Eos % (Auto) 0.7 % 11/02/24 07:55 Baso % (Auto) 0.4 % 11/02/24 07:55 Neut # (Auto) 4.65 K/uL (1.40-6.50) 11/02/24 07:55 Lymph # (Auto) 1.15 K/uL (1.20-3.40) L 11/02/24 07:55 [place] # (Auto) 0.76 K/uL (0.11-0.59) H 11/02/24 07:55 Eos # (Auto) 0.05 K/uL (0.00-0.50) 11/02/24 07:55 Baso # (Auto) 0.03 K/uL (0.00-0.20) 11/02/24 07:55 Immature Gran # (Auto) 0.04 K/uL (0.01-0.20) 11/02/24 07:55 Sodium 140 mmol/L (136-145) 11/04/24 06:52 Potassium 3.9 mmol/L (3.5-5.1) 11/04/24 06:52 Chloride 108 mmol/L (98-107) H 11/04/24 06:52 Carbon Dioxide 28 mmol/L (21-32) 11/04/24 06:52 Anion Gap 4 (3-11) 11/04/24 06:52 BUN 28 mg/dl (6-23) H 11/04/24 06:52 Creatinine 0.80 mg/dl (0.6-1.4) 11/04/24 06:52 Est Cr Clr Drug Dosing 69.6 ml/min 11/04/24 06:52 eGFR 86.19 11/04/24 06:52 BUN/Creatinine Ratio 35.0 (10-20) H 11/04/24 06:52 Glucose 92 mg/dl (70-99(Fasting)) 11/04/24 06:52 Lactate 1.2 mmol/L (0.4-2.0) 11/01/24 22:24 Calcium 8.3 mg/dl (8.6-10.3) L 11/04/24 06:52 Magnesium 2.0 mg/dl (1.7-2.4) 11/02/24 07:55 Total Bilirubin 0.4 mg/dl (0.2-1.0) 11/02/24 07:55 Direct Bilirubin 0.1 mg/dl (0-0.2) 11/02/24 07:55 AST 13 U/L (13-39) 11/04/24 06:52 ALT 9 U/L (7-52) 11/04/24 06:52 Alkaline Phosphatase 93 U/L (34-104) 11/02/24 07:55 Total Creatine Kinase 47 U/L (30-223) 11/01/24 21:28 Troponin I High Sens 5.0 pg/ml (0-20) 11/01/24 21:28 B-Natriuretic Peptide 141 pg/ml (0-100) H 11/01/24 21:28 Total Protein 5.4 gm/dl (6.0-8.3) L 11/02/24 07:55 Albumin 2.8 gm/dl (3.4-5.0) L 11/02/24 07:55 Procalcitonin 0.11 ng/ml (0-0.5) 11/01/24 21:28 Urine Color Yellow 11/02/24 05:04 Urine Appearance Clear (Clear) 11/02/24 05:04 Urine pH 5.0 (4.5-7.5) 11/02/24 05:04 Ur Specific [place] > 1.045 (1.000-1.030) H 11/02/24 05:04 Urine Protein 1+ (Negative) H 11/02/24 05:04 Urine Glucose (UA) Negative (Negative) 11/02/24 05:04 Urine Ketones 1+ (Negative) H 11/02/24 05:04 Urine Blood Negative (Negative) 11/02/24 05:04 Urine Nitrite Negative (Negative) 11/02/24 05:04 Urine Bilirubin Negative (Negative) 11/02/24 05:04 Urine Urobilinogen Negative (Negative) 11/02/24 05:04 Ur Leukocyte Esterase Negative (Negative) 11/02/24 05:04 Urine WBC (Auto) 0-5 /hpf (0-5) 11/02/24 05:04 Urine RBC (Auto) 0-2 /hpf (0-2) 11/02/24 05:04 U Hyaline Cast (Auto) 0-2 /lpf (0-2) 11/02/24 05:04 U Epithel Cells (Auto) 0-2 /hpf (0-2) 11/02/24 05:04 Urine Bacteria (Auto) None Seen (None Seen) 11/02/24 05:04 Stl C. cayetanensis PCR Not Detected (NotDetected) 11/02/24 04:43 Stool Rotavirus A PCR Not Detected (NotDetected) 11/02/24 04:43 Stl Adenov F 40/41 PCR Not Detected (NotDetected) 11/02/24 04:43 Stool Astrovirus (PCR) Not Detected (NotDetected) 11/02/24 04:43 Stool Campylobacter PCR Not Detected (NotDetected) 11/02/24 04:43 Stl C. diff Tox B Gene Negative Cdiff Gene (Neg) 11/02/24 04:43 Stool Cryptosporidium PCR Not Detected (NotDetected) 11/02/24 04:43 Stl E.coli Shiga Tox PCR Not Detected (NotDetected) 11/02/24 04:43 Stl Enterotoxigenic E PCR Not Detected (NotDetected) 11/02/24 04:43 Stool EPEC (PCR) Not Detected (NotDetected) 11/02/24 04:43 Stool EAEC (PCR) Not Detected (NotDetected) 11/02/24 04:43 Stl E. histolytica PCR Not Detected (NotDetected) 11/02/24 04:43 Stool Giardia Lamblia PCR Not Detected (NotDetected) 11/02/24 04:43 Stool Salmonella PCR Not Detected (NotDetected) 11/02/24 04:43 Stool Sapovirus (PCR) Not Detected (NotDetected) 11/02/24 04:43 Stl P. shigelloides PCR Not Detected (NotDetected) 11/02/24 04:43 Stl Shigella/EIEC PCR Not Detected (NotDetected) 11/02/24 04:43 St Y.enterocolitica PCR Not Detected (NotDetected) 11/02/24 04:43 Stool Vibrio (PCR) Not Detected (NotDetected) 11/02/24 04:43 Stl Vibrio cholerae PCR Not Detected (NotDetected) 11/02/24 04:43 Stl Norovirus GI/GII PCR Not Detected (NotDetected) 11/02/24 04:43 Adenovirus (PCR) Not Detected (NotDetected) 11/01/24 21:28 B. pertussis DNA (PCR) Not Detected (NotDetected) 11/01/24 21:28 B.parapertussis DNA PCR Not Detected (NotDetected) 11/01/24 21:28 C. pneumoniae DNA (PCR) Not Detected (NotDetected) 11/01/24 21:28 Coronavirus OC43 (PCR) Not Detected (NotDetected) 11/01/24 21:28 Coronavirus HKU1 (PCR) Not Detected (NotDetected) 11/01/24 21:28 Coronavirus 229E (PCR) Not Detected (NotDetected) 11/01/24 21:28 SARS-CoV-2 (PCR) DETECTED (NotDetected) A 11/01/24 21:28 Coronavirus NL63 (PCR) Not Detected (NotDetected) 11/01/24 21:28 Human Metapneumovir PCR Not Detected (NotDetected) 11/01/24 21:28 Influenza Type A (PCR) Not Detected (NotDetected) 11/01/24 21:28 Influenza Type B (PCR) Not Detected (NotDetected) 11/01/24 21:28 M. pneumoniae (PCR) Not Detected (NotDetected) 11/01/24 21:28 Parainfluenza 1 (PCR) Not Detected (NotDetected) 11/01/24 21:28 Parainfluenza 2 (PCR) Not Detected (NotDetected) 11/01/24 21:28 Parainfluenza 3 (PCR) Not Detected (NotDetected) 11/01/24 21:28 Parainfluenza 4 (PCR) Not Detected (NotDetected) 11/01/24 21:28 RSV (PCR) Not Detected (NotDetected) 11/01/24 21:28 Entero/Rhino (PCR) Not Detected (NotDetected) 11/01/24 21:28 Impressions Chest X-Ray 11/01/24 21:51 Exam(s): XR CXR 1 VIEW EXAM: XR Chest, 1 View CLINICAL HISTORY: Reason for exam: Sepsis. TECHNIQUE: Frontal view of the chest. COMPARISON: 10/27/2024. FINDINGS: Heart is enlarged. No CHF. Right basilar ill-defined atelectasis. Right basilar scarring versus platelike atelectasis. No pleural effusion or pneumothorax. Bones are unchanged. IMPRESSION: No significant interval change. Electronically signed by: Adriel Brown M.D. 11/02/24 00:17 AM Abdomen/Pelvis CT 11/01/24 22:20 Exam(s): CT ABDOMEN + PELVIS With Contrast IV Amt: 120 cc opti 320 EXAM: CT Abdomen and Pelvis With Intravenous Contrast CLINICAL HISTORY: abd pain, D, weakness. TECHNIQUE: Axial computed tomography images of the abdomen and pelvis with intravenous contrast. CTDI is 21.54 mGy and DLP is 2228.73 mGy-cm. Automated exposure control was utilized for the study. A dose lowering technique was utilized adhering to the principles of ALARA. CONTRAST: Patient received 120 cc opti 320 of IV contrast COMPARISON: No relevant prior studies available. FINDINGS: Lung bases: Small pericardial effusion. Minimal right pleural fluid. No mass. No consolidation. ABDOMEN: Liver: Normal size. Multiple scattered hypodense lesions throughout the liver too small to characterize. Gallbladder and bile ducts: Well distended. Minimal probable gallbladder sludge or small gallstones. No ductal dilation. Pancreas: Unremarkable. No mass. No ductal dilation. Spleen: Probable cyst in the posterior aspect of the spleen. No splenomegaly. Adrenals: Unremarkable. No mass. Kidneys and ureters: Bilateral renal cortical cysts. No obstructive uropathy. No obstructing renal or ureteral calculi. No hydronephrosis or hydroureter. Stomach and bowel: No obstruction or ileus. Nonspecific air-fluid levels bowel. No evidence for diverticulitis. Distal rectal wall thickening. PELVIS: Appendix: Appendix not identified. No secondary evidence for appendicitis. Bladder: Partially contracted with nonspecific wall thickening. No mass. Reproductive: Prominent 4.9 x 4.2 cm prostate gland. ABDOMEN and PELVIS: Intraperitoneal space: No free air. No free fluid. Bones/joints: No acute fracture. Degenerative changes of the spine. Soft tissues: Bilateral fat-containing inguinal hernias. Vasculature: Infrarenal IVC filter. No abdominal aortic aneurysm. Atherosclerotic vascular calcifications. Lymph nodes: Unremarkable. No enlarged lymph nodes. IMPRESSION: Nonspecific air-fluid levels in nondilated small and large bowel. No definite bowel obstruction or ileus. Distal rectal wall thickening, possibly proctitis. Multiple scattered hypodense lesions throughout the liver too small to characterize. Probable renal and spleen cysts. Partially contracted urinary bladder wall thickening with wall thickening, possibly related to prominent prostate gland. Minimal gallbladder sludge or gallstones. Senescent changes. Electronically signed by: Adriel Brown M.D. 11/02/24 01:08 AM Chest CTA 11/01/24 22:20 Exam(s): CTA CHEST IV Amt: 120 cc opti 320 EXAM: CT Angiography Chest With Intravenous Contrast CLINICAL HISTORY: PE. TECHNIQUE: Axial computed tomographic angiography images of the chest with intravenous contrast. CTDI is 21.54 mGy and DLP is 2228.73 mGy-cm. Automated exposure control was utilized for the study. A dose lowering technique was utilized adhering to the principles of ALARA. 3D and MIP reconstructed images were created and reviewed. COMPARISON: CXR 11/01/2024. FINDINGS: Study is limited by patient motion. Pulmonary arteries: No pulmonary embolism. Aorta: No thoracic aortic aneurysm or dissection. Atherosclerotic vascular calcifications. Lungs: Multifocal linear parenchymal changes greatest in the right lower lobe consistent with platelike atelectasis versus scarring. Dependent atelectasis bilaterally. Mild bronchiectasis with peribronchial thickening consistent with bronchitis. Small ill-defined parenchymal densities in lung apices, right greater than left, consistent with scarring. Pleural space: No pleural effusion. No pneumothorax. Heart: No cardiomegaly. Small pericardial effusion. No evidence of RV dysfunction. Coronary artery calcifications. Bones/joints: No acute fracture. Soft tissues: Unremarkable. Lymph nodes: Unremarkable. No enlarged lymph nodes. IMPRESSION: No pulmonary embolism. Predominately basilar platelike atelectasis and scarring. No focal consolidation. Atherosclerotic vascular calcifications. Small pericardial effusion. Electronically signed by: Adriel Brown M.D. 11/02/24 00:58 AM (4) UTI (urinary tract infection) Urinary tract infection type: site unspecified Hematuria presence: without hematuria Qualified Code(s): N39.0 - Urinary tract infection, site not specified (5) Hypertension Hypertension type: unspecified Qualified Code(s): I10 - Essential (primary) hypertension (6) Hemiplegia Hemiplegia type: flaccid Hemiplegia etiology: late effect of cerebrovascular disease Cerebrovascular disease type: unspecified Hemiplegia laterality: unspecified Qualified Code(s): I69.959 - Hemiplegia and hemiparesis following unspecified cerebrovascular disease affecting unspecified side (7) CVA (cerebral vascular accident) CVA mechanism: occlusion Precerebral and cerebral artery: middle cerebral artery Laterality of affected vessel: unspecified Qualified Code(s): I63.519 - Cerebral infarction due to unspecified occlusion or stenosis of unspecified middle cerebral artery
[2024-11-05 07:31] VITALS: RESP 20; TEMP 97.9; O2SAT 96
[2024-11-05 08:05] LABS: Hematocrit (blood only) 34.7 % (42.0-52.0); Hemoglobin 11.6 g/dl (14.0-18.0); Mean Corpuscular Hemoglobin 29.9 pg (25.0-34.0); Mean Corpuscular Hgb Conc 33.4 g/dL (32.0-36.0); Mean Corpuscular Volume 89.4 fL (80.0-100.0); Mean Platelet Volume 8.9 fL (9.4-12.4); Platelet Count 304 K/uL (130-400); RDW Coefficient of Variation 14.9 % (11.5-14.5); RDW Standard Deviation 49.1 fL (36.4-46.3); Red Blood Count 3.88 M/uL (4.70-6.10); White Blood Count 7.52 K/ul (4.8-10.8)
[2024-11-05 08:29] LABS: BUN Creatinine Ratio 36.1 (10-20); Calcium 8.3 mg/dl (8.6-10.3); Creatinine Clr Calc Pharmacy 67.9 ml/min; Potassium 3.6 mmol/L (3.5-5.1)
[2024-11-05 11:22] VITALS: BP 121/66; PULSE 57
--- NOTE | 2024-11-05 11:46 | Discharge Summary ---
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 -patient struggles to talk or move -appears better today Plan: -going home with hospice (2) Acute hypoxic respiratory failure: -in setting of COVID and atelectasis -resolving Plan: -prn oxygen at home (3) COVID-19: -significant comorbidities -on room air (4) UTI (urinary tract infection): -finish course of omnicef (5) Hypertension: -continue home meds (6) Hemiplegia: -patient has very significant physical deficits and communication difficulties -given extent of disease patient is appropriate for hospice care, given difficulties with PO and other comorbid conditions (7) CVA (cerebral vascular accident): -see above Notes For Next Care Provider He 4-year-old male with past medical history of hemiplegic CVA, weakness who presents for failure to thrive at home. Patient weaker and and not moving as well as before. Admitted to medicine for high risk COVID and for monitoring. Over course of hospitalization daughter and patient decided to focus on comfort and move towards hospice care. Patient is stable for discharge home on hospice. Medication Changes From Visit -none Admission HPI Per Admitting Provider 84 year-old male with past medical history significant for hyperlipidemia, history of CVA right hemiplegia currently ambulates with walker, hypertension, CKD stage III, A-fib, right foot drop, history of pulmonary embolism, history of amputation of left great toe, who lives at home with his daughter, ambulates with walker, and on soft diet but when he is sick on pured diet as per daughter who was recently in the hospital for weakness and was treated for UTI discharged on 10/29/2024 comes back with weakness and found to COVID. Patient has history of stroke and somewhat difficult to understand. As per daughter last 2 nights patient had fever and was very weak not able to get up from the bed. Having poor appetite and started to have diarrhea again. Also having chills. He is also having lot of cough. When he is coughing he is getting short of breath as per daughter. Patient currently alert and oriented. Patient denies any headache. Denies chest pain. Currently denies shortness of breath. Denies nausea. Denies abdominal pain. Says he ambulates with a walker. Hemodynamics are okay currently. Past medical history. As mentioned above Past surgical history. Colorectal cancer screening Social history. current lives with the daughter. No smoking. No alcohol use. No drug use. Family history. No family history on file Discharge Exam Gen: A&O 3 NAD HEENT: NCAT, EOMI, not icteric. External ears normal. No rhinorrhea. Moist mucous membranes. Neck: Supple, full range of motion, no observable masses, No meningeal sign. Lungs: slight ronchi bilaterally CV: RRR, no edema. Abdomen: Soft, nondistended, No rebound tenderness. MSK: No joint swelling, no redness. Skin: No rashes, petechiae, lesions. Normal color per patient. Neuro: hemiplegia, difficulty with speech, improved from prior Psych: Appropriate for situation. Updated Medication List Medication Instructions Recorded Confirmed Type amlodipine 5 mg tablet 5 mg PO QAM 10/10/19 11/01/24 History lisinopril 20 mg tablet 20 mg PO QAM 10/10/19 11/01/24 History simvastatin 20 mg tablet 20 mg PO HS 10/10/19 11/01/24 History metoprolol tartrate 25 mg tablet 12.5 mg (1/2 x 25 mg) PO BID #60 03/16/23 11/01/24 Rx tabs tamsulosin 0.4 mg capsule 0.4 mg PO QAM 12/04/23 11/01/24 History L.acidop,casei,lactis,rham-B.lact,aniya 1 cap PO DAILY 1 week #7 caps 10/29/24 11/01/24 Rx 625 mg (10 billion cell) capsule (Advanced Probiotic) nystatin 100,000 unit/mL oral 5 ml PO QID 7 days #250 mL 10/29/24 11/01/24 Rx suspension apixaban 5 mg tablet (Eliquis) 5 mg PO AMHS 11/01/24 11/01/24 History levofloxacin 750 mg tablet 750 mg PO DAILY@1100 2 days #2 tabs 11/05/24 Rx polyethylene glycol 3350 17 gram 17 g PO DAILY PRN constipation #14 11/05/24 Rx oral powder packet (Miralax) ea Hospital Stay Data Consultations 11/02/24 01:10 ED Decision to Admit Stat Diagnostic Imagining Performed 01/16/25 22:20 CT Abd and Pelvis [CT abd pelvis IV con only] Stat CT angio chest PE protocol Stat Pending Results Patient Have Any Pending Studies at Discharge: No Discharge Instructions Given to Patient (Per Discharging Provider) 1. Continue hospice care. Total Time Total Time Spent Total Time Spent (In Minutes): I spent a total of 35 minutes coordinating, documenting, and providing care for this patient excluding time spent in the performance of separately billed services.
== END 2024-11-05 16:14 | disposition hospice, home (50) | DRG 177 ==
LOC: ED 20:57 → EDINP 11-02 01:52 → 2N 11-02 02:21